=== PATIENT | male | born 1935 | race Caucasian/White ===

== ENCOUNTER 2017-01-09 16:59 | Inpatient (IN) | payer MEDICARE, OTHER ==
[~2017-01-09] VITALS: Ht 180.3 cm; Wt 81.2 kg
[2017-01-09 17:14] VITALS: BP 177/67; PULSE 64; RESP 18; RESP 30; O2SAT 93
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
[2017-01-09 18:25] LABS: BASOPHILS % (AUTO) 0.7 % (0-3); EOSINOPHILS % (AUTO) 0.6 % (0-5); MONOCYTES % (AUTO) 15.6 % (4-12); Mean Corpuscular Hemoglobin 30.1 pg (27.0-35.0); Mean Corpuscular Volume 87.6 fL (81-100); NEUTROPHILS % (AUTO) 71.2 % (40-74); Platelet Count 154 bil/L (150-400)
[2017-01-09] MEDS ORDERED: cefTRIAXone Inj 2,000 MG in Dextrose 5% Minibag Plus 50 ML IV ONE (18:45)
[2017-01-09 18:49] LABS: D-DIMER 4.1 mg/L (<0.50); INR 1.11 ratio
--- NOTE | 2017-01-09 18:51 | DRSVH ---
PROCEDURE: X-RAY CHEST ONE VIEW, PORTABLE ([id number]) INDICATIONS: dyspnea TECHNIQUE: One view of the chest was acquired. COMPARISON: None. FINDINGS: Surgical changes and devices: None. Lungs and pleura: Lung volumes are low. Patchy opacities are present in the bilateral lung bases, mor e confluent left. There is likely a small left pleural effusion. There is prominence of the interstit ium. Mediastinum: Mediastinal contours appear normal. Heart size is enlarged. The arch is calcified. Bones and chest wall: No suspicious bony lesions. Overlying soft tissues appear unremarkable. IMPRESSION: 1. Low lung volumes and basilar opacities which may represent atelectasis, although aspiration/infect ion could also be considered in the differential. 2. Interstitial opacities and cardiomegaly suspicious for fluid overload. Dictated by: Rosaura Angel M.D. on 01/09/2017 at 18:49 Approved by: Rosaura Angel M.D. on 01/09/2017 at 18:50
[2017-01-09 18:57] VITALS: BP 157/47; PULSE 53; RESP 26; O2SAT 92
[2017-01-09 19:05] LABS: TROPONIN T 0.11 ug/L (0.0-0.011)
[2017-01-09] MEDS ORDERED: 0.9% Sodium Chloride 500 ML IV ONE (19:45)
[2017-01-09] MEDS ORDERED: 0.9% Sodium Chloride 250 ML ONE (19:49)
[2017-01-09] MEDS: Heparin 5,000 Unit/mL Inj IVPUSH PRN (20:01)
--- NOTE | 2017-01-09 20:10 | DRSVH ---
PROCEDURE: US VEINOUS LEG DUPLEX UNILATERAL, LEFT INDICATIONS: left leg swelling TECHNIQUE: Real-time imaging, as well as color and pulse Doppler interrogation, were performed of the lower extr emity deep veins from the inguinal ligament to the popliteal fossa. COMPARISON: None. FINDINGS: Occlusive thrombus is present throughout the left superficial femoral vein, popliteal vein, and the posterior tibial vein. Common femoral vein is patent. IMPRESSION: Occlusive thrombus within the left superficial femoral vein, popliteal vein, and posterio r tibial vein. These findings were discussed with Dr. Lopez at 7:45 PM by the rehabilitation therapy technician. Dictated by: Rosaura Angel M.D. on 01/09/2017 at 20:07 Approved by: Rosaura Angel M.D. on 01/09/2017 at 20:08
[2017-01-09] MEDS: Heparin 25K Unit/500mL 0.45 NS 25,000 UNIT in IV Premix 1 EACH IV SCH (20:12)
[2017-01-09] MEDS ORDERED: Furosemide 10 mg/mL 4 mL Inj IVPUSH ONE (20:20)
[2017-01-09 21:37] VITALS: BP 157/47; PULSE 53; RESP 26; O2SAT 92
[2017-01-09 22:01] VITALS: BP 179/71; PULSE 48; RESP 18
--- NOTE | 2017-01-09 22:05 | NUR ---
NEW ADMIT Pt arrived to [facility] @ 2200, was able to transfer to bed independently. Pt's admit complete minus med rec. Pt's stated that she will have his home meds brought in by morning. Pt SOB but refused oxygen. Pt was uncooperative with care in the ED, but has allowed vitals, IV fluids and heparin drip.
[2017-01-09 22:14] VITALS: PULSE 43
[2017-01-09] MEDS ORDERED: Polyethylene Glycol (PEG) 17 Gm Powder PO PRN (22:50)
[2017-01-09] MEDS ORDERED: Ondansetron 2 mg/mL 2 mL Inj IVPUSH PRN (22:50)
[2017-01-09] MEDS ORDERED: Alum-Mag Hydrox-Simeth 30 mL Suspension PO PRN (22:50)
[2017-01-09 22:52] LABS: APPEARANCE,URINE CLEAR (CLEAR,HAZY); COLOR,URINE YELLOW (YELLOW); OCCULT BLOOD,URINE TRACE (NEGATIVE); UROBILINOGEN,URINE NORMAL (NORMAL)
[2017-01-10] VITALS (7 sets, daily range): BP systolic 160–182; BP diastolic 66–80; PULSE 42–57; RESP 20–28; O2SAT 93–97
--- NOTE | 2017-01-10 01:50 | NUR ---
HR/TELE Pt in and out of complete heart block per tele monitor. Pt hypertensive and bradycardic in the 30's - 50's. Pt slightly SOB and allowed O2 via NC @ 3L. MD aware and pacer pads in pt room @ this time. Pt is asymptomatic, denies chest pain, lightheadedness, or SOB after 3L O2 via NC applied.
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
[2017-01-10 03:46] LABS: BASOPHILS % (AUTO) 0.8 % (0-3); MONOCYTES % (AUTO) 15.9 % (4-12); Mean Corpuscular Hemoglobin 29.7 pg (27.0-35.0); Mean Corpuscular Volume 87.2 fL (81-100); NEUTROPHILS % (AUTO) 63.7 % (40-74); Platelet Count 140 bil/L (150-400)
--- NOTE | 2017-01-10 05:14 | ABG ---
DateTimeAnalyzed 05:07:00 -_ pH ____7.330 - 7.350 7.450 pCO2 ___23.7__ -mmHg 35.0 45.0 pO2 ___95.7__ -mmHg 69.0 116 HCO3- ___12.2__ -mmol/L 22.0 26.0 ABE __-11.9__ -mmol/L -2.0 2.0 tHb ___13.4__ -g/dL O2Hb ___95.3__ -% COHb ____1.2__ -% MetHb ____0.9__ -% sO2 ___97.3__ -% 25.0 FIO2 ___31.0__ -% Drawn By MK - Date/Time Notified____ 05:13:00 -_ Liter_Flow ____3.0__ -L/min Oxygen Device 1 __CANNULA - Notified By MK - Notified Whom __Jess RN - B 749 -mmHg tO2 ___18.1__ -Vol% Fan test _Positive -
[2017-01-10] MEDS ORDERED: Glucose 40% Oral Gel 15 Gm Tube PO PRN (07:50)
[2017-01-10] MEDS: Insulin LISPRO 300 Unit/3 mL Inj SUBQ SCH ×4 (08:00→22:00)
--- NOTE | 2017-01-10 10:00 | DRSVH ---
PROCEDURE: US RENAL SONOGRAM INDICATIONS: Acute kidney injury TECHNIQUE: Real-time scanning was performed of the kidneys and bladder, with image documentation. COMPARISON: None. FINDINGS: Kidneys: Kidneys are normal in size. Right kidney measures 10.8 cm long; left kidney measures 12.8 cm long. Right renal cortical thickness is 0.9 cm; left renal cortical thickness is 0.9 cm. Renal c ortical echotexture is increased. No hydronephrosis or nephrolithiasis. No suspicious solid mass le sions. Bladder: Pre-void bladder volume is 73 mL. Post-void residual is unable to be assessed as the patie nt was unable to void. There is left ureteral jet. The right ureter was not seen. Miscellaneous: No free pelvic fluid. IMPRESSION: 1. Mild cortical thinning and increased renal cortical echogenicity bilaterally, compatible with medi robert renal disease. 2. No hydronephrosis. Dictated by: Oscar GOMEZ Interpreted: Carissa Boyd MD on 01/10/2017 at 9:58 Transcribed by: KEYSHAWN on 01/10/2017 at 10:00 Approved by: Carissa Boyd M.D. on 01/10/2017 at 12:45
[2017-01-10] MEDS ORDERED: CLOP75TA3 PO (11:46)
[2017-01-10] MEDS ORDERED: FURO-128 PO (11:46)
[2017-01-10] MEDS ORDERED: ASPI325T32 PO (11:46)
[2017-01-10] MEDS ORDERED: [UNRECOGNIZED DRUG - CODE] PO (11:46)
[2017-01-10] MEDS ORDERED: ALLO300T2 PO (11:46)
[2017-01-10] MEDS ORDERED: BENA20TA72 PO (11:46)
[2017-01-10] MEDS ORDERED: RANI150T11 PO (11:46)
[2017-01-10] MEDS: Isosorbide Dinitrate 40 mg ER24 Tablet PO SCH (12:10)
[2017-01-10] MEDS ORDERED: 0.9% Sodium Chloride 250 ML ONE (12:18)
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
[2017-01-10] MEDS: Heparin 25K Unit/500mL 0.45 NS 25,000 UNIT in IV Premix 1 EACH IV SCH (16:20)
--- NOTE | 2017-01-10 16:51 | DRSVH ---
[facility] [address] [place] [address] Echocardiogram Report Name: ALISA TERRAZAS Study Date: 01/10/2017 Height: 71 in Hospital Exam Location: [facility] Weight: 185 lb Gender: Male BSA: 2.0 m2 : 1935 Age: 81 yrs BP: 177/66 mmHg Reason For Study: EDEMA, SHORTNESS OF BREATH Ordering Physician: HOSPITALIST [facility] Performed By: Jabier Tolentino Referring Physician: Juvenal Dodge Interpretation Summary The left ventricle is mildly dilated. The ejection fraction is estimated to be 35-40%. There is severe hypokinesis of the mid and distal septum, and akinesis of the septum and posterior wall. The anterior wall is hypokinetic and in apical inferior wall is akinetic. 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 There is severe pulmonary hypertension. The right ventricular systolic pressure is estimated at 89 mmHg assuming a right atrial pressure of 15 mm Hg. The right ventricle is mildly dilated. The right ventricular systolic function is normal. There is moderate to severe mitral regurgitation. There is moderate biatrial enlargement. The patient was in third degree heart block during the exam. The heart rate ranged between 50-70 bpm during the study. No other echocardiographic abnormalities seen. Procedure: A two-dimensional transthoracic echocardiogram with color flow and Doppler was performed. The study quality was technically adequate. There is no prior echocardiogram noted for this patient. The suprasternal notch views were difficult to obtain and are suboptimal in quality. The patient had a bundle branch block rhythm during the exam. The patient was in third degree heart block during the exam. The heart rate ranged between 50-70 bpm during the study. Left Ventricle: There is normal left ventricular wall thickness. The left ventricle is mildly dilated. There is no thrombus. The ejection fraction is estimated to be 35-40%. There is severe hypokinesis of the mid and distal septum, and akinesis of the septum and posterior wall. The anterior wall is hypokinetic and in apical inferior wall is akinetic. 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 Diastolic function could not be accurately assessed due to unobtainable data. Right Ventricle: The right ventricle is mildly dilated. The right ventricular systolic function is normal. Atria: There is moderate biatrial enlargement. The right atrium is moderately dilated. The interatrial septum is intact with no evidence for an atrial septal defect. Mitral Valve: The mitral valve is normal in structure and function. There is moderate to severe mitral regurgitation. Aortic Valve: The aortic valve is trileaflet. The aortic valve opens well. There is trace aortic regurgitation. Tricuspid Valve: The tricuspid valve is normal in structure and function. There is moderate tricuspid regurgitation. The right ventricular systolic pressure is estimated at 89 mmHg assuming a right atrial pressure of 15 mm Hg. There is severe pulmonary hypertension. Pulmonic Valve: The pulmonic valve is normal in structure and function. There is trace pulmonic regurgitation. Great Vessels: The aortic root is normal size. The dimensions of the ascending aorta are normal. The pulmonary artery is normal size. The IVC is dilated (diameter is greater than 2.1 cm) and it collapses less than 50% with a sniff. This suggests a high right atrial pressure of 15 mm Hg. Pericardium/ Pleura There is no pericardial effusion. There is no pleural effusion. MMode/2D Measurements & Calculations LVIDd: 6.1 cm LA dimension: 4.5 cm RA long axis LVOT diam LVIDs: 4.5 cm FS: 26.4 % LA A2 area: 30.1 cm RA area Ao root diam EPSS: 1.1 cm LA A4 area: 25.0 cm IVSd: 0.97 cm LA length (vol): 5.7 cm : 24.0 cm Aortic Jxn LVPWd: 0.87 cm LA vol: 112.3 ml RA vol: 85.3 ml LA vol index RA asc Aorta : 41.8 mm2 Diam: 3.2 cm IVC diam: 2.6 cm LV braga. diameter/BSA LV sys. diameter/BSA RVD1 (basal) RVD2 (mid) (cm/m^2): 3.0 (cm/m^2): 2.2 : 4.5 cm Doppler Measurements & Calculations Ao V2 max MV E max simeon MV E/A: 0.93 TR max simeon : 151.9 cm/sec : 95.7 cm/sec Med Peak E' Simeon : 431.1 cm/sec Ao max PG MV A max simeon TR max PG : 9.2 mmHg : 103.1 cm/sec E/E' med: 22.1 : 74.4 mmHg Ao mean PG Pulm A Revs Dur PA V2 max MR ERO: 0.13 cm2 : 95.2 cm/sec LVOT Max Simeon MV A dur: 0.14 sec PA mean PG : 107.3 cm/sec PA Accel Time SRIDHAR(I,D): 3.5 cm : 0.06 sec sev ratio MV dec time Ao V2 mean LV V1 max PG MR flow rate : 0.12 sec : 116.8 cm/sec : 63.5 cm3/sec Ao V2 VTI: 42.8 cm LV V1 VTI: 28.3 cm MR PISA radius SRIDHAR(V,D): 3.7 cm2 PA V2 mean SRIDHAR indexed to BSA Pulm A Revs Dur - MV : 63.5 cm/sec (cm^2/m^2): 1.7 A Dur: 0.02 msec PA pr(Accel) : 59.0 mmHg Reading Physician:04:50 PM
[2017-01-10] MEDS ORDERED: Furosemide 10 mg/mL 4 mL Inj IVPUSH ONE (17:25)
--- NOTE | 2017-01-10 17:52 | NUR ---
Med&Procedure refusals/Heparin The pt continues to refuse many medications and procedures despite education by both nursing staff and Doctors. We will continue to educate on the importance. TELE heart block in the 30's-50's. The pt is active on a Heparin drip.
--- NOTE | 2017-01-10 18:22 | PCM.PNMED ---
Subjective Date of Service Jan 10, 2017 Subjective is an 81-year-old male with type 2 diabetes mellitus, hypertension and CAD with history of CA presenting [facility]. Patient is accompanied by his at bedside. Patient has been refusing medications and refused V/Q scan. He is accepting heparin drip. Patient reports shortness of breath. He denies fever or chills, chest pain, or abdominal pain. Patient reports that he was upset yesterday when he was being transported from wound care to the emergency department. He was upset because he felt that he was not fully informed about why he was going to the emergency department, and he felt like he was forced to go. He reports that he has not been sick before or required hospitalization so he is afraid of being in the hospital. He reports that he did not put the gun towards his head but that it was just at his hip. He denies suicidal ideation other than yesterday while he was on his way to the emergency department. The gun is now in his van. His reports that the redness on his legs started 4-5 days ago, which is why he were going to wound care yesterday. She reports that in the past he has had a fungal cellulitis of both legs that was treated by Dr. Bradshaw. They follow regularly with a homeopath as their primary care provider. Exam Vital Signs Vital Sign - Last Date Time Temp Pulse Resp B/P Pulse Ox O2 Delivery O2 Flow Rate FiO2 01/10/17 16:13 36.6 54 26 173/80 93 Room Air 01/10/17 02:23 3.00 Intake and Output 01/09/17 01/09/17 01/10/17 Cumulative From/Thru 15:00 23:00 07:00 01/09/17 17:14 - 01/10/17 04:29 Intake Total 250 ml 100 ml 350 ml Output Total 300 ml 300 ml Balance 250 ml -200 ml 50 ml Intake Oral 100 ml 100 ml IV Total 250 ml 250 ml Output Urine Total 300 ml 300 ml # Voids 0 0 # Bowel Movements 1 1 Exam General: Elderly patient sitting upright in bed comfortably. No acute distress, well-developed, well-nourished, appropriately interactive HEENT: Normocephalic, atraumatic. External ears without defect. Pupils equal, round, and reactive to light. Oral mucosa pink with dry mucosa. Neck: Supple. Mild jugular venous distension. No lymphadenopathy or thyromegaly. Cardiovascular: Bradycardic in 50s. No murmurs, rubs, or gallops appreciated Pulmonary: Tachypneic. Clear to auscultation bilaterally with no crackles, wheezes, or rhonchi. Normal respiratory effort with no use of accessory muscles. Abdomen: Bowel tones present. Soft, nontender, nondistended. Extremities: Left lower extremity with edema, swelling and confluent erythema and warmth to 3/4 lower leg distal to knee. Right lower extremity with edema, swelling and erythema and warmth half way up lower leg distal to knee. Onychomycosis of bilateral toenails. Neurological: Cranial nerves grossly intact. Normal muscle strength, tone, and bulk. Psychiatric: Normal mood and affect. Alert and oriented to person, place, and time. IVs and Medications Medications Reviewed: Medications were reviewed in detail Lab and Diagnostics Result Diagram: 01/10/17 0321 01/10/17 0321 X-Rays, CTs and MRIs PROCEDURE: US VEINOUS LEG DUPLEX UNILATERAL, LEFT IMPRESSION: Occlusive thrombus within the left superficial femoral vein, popliteal vein, and posterior tibial vein. These findings were discussed with Dr. Lopez at 7:45 PM by the substance abuse technician. Approved by: Rosaura Angel M.D. on 01/09/2017 at 20:08 PROCEDURE: X-RAY CHEST ONE VIEW, PORTABLE IMPRESSION: 1. Low lung volumes and basilar opacities which may represent atelectasis, although aspiration/infection could also be considered in the differential. 2. Interstitial opacities and cardiomegaly suspicious for fluid overload. Approved by: Rosaura Angel M.D. on 01/09/2017 at 18:50 PROCEDURE: US RENAL SONOGRAM IMPRESSION: 1. Mild cortical thinning and increased renal cortical echogenicity bilaterally , compatible with medical renal disease. 2. No hydronephrosis. Approved by: Carissa Boyd M.D. on 01/10/2017 at 12:45 Cardiac Echo Impressions Echocardiogram Report Interpretation Summary The left ventricle is mildly dilated. The ejection fraction is estimated to be 35-40%. There is severe hypokinesis of the mid and distal septum, and akinesis of the septum and posterior wall. The anterior wall is hypokinetic and in apical inferior wall is akinetic. 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 There is severe pulmonary hypertension. The right ventricular systolic pressure is estimated at 89 mmHg assuming a right atrial pressure of 15 mm Hg. The right ventricle is mildly dilated. The right ventricular systolic function is normal. There is moderate to severe mitral regurgitation. There is moderate biatrial enlargement. The patient was in third degree heart block during the exam. The heart rate ranged between 50-70 bpm during the study. No other echocardiographic abnormalities seen. Reading Physician:04: 50 PM Assessment & Plan Patient is an 81-year-old male with type 2 diabetes mellitus, hypertension and CAD with history of CA presenting as a referral from [facility] for shortness of breath and admitted for left lower extremity DVT, acute CHF exacerbation, acute kidney injury, hyperkalemia, suspected PE and possible lower extremity cellulitis. 1. Acute dyspnea on exertion. Present on admission. Active. -Initially tachypneic and oxygen saturation in 90s. -Chest x-ray reads basilar opacities which may represent atelectasis, although aspiration/infection could also be considered in the differential. Interstitial opacities and cardiomegaly suspicious for fluid overload. Echocardiogram shows EF of 35-40% and severe pulmonary hypertension. -Likely multifactorial secondary to likely congestive heart failure exacerbation , suspected pulmonary embolism, probable chronic pulmonary hypertension as seen on echocardiogram, and patient has metabolic acidosis. -Legionella negative, streptococcal pneumoniae negative, viral PCR negative -Supplemental oxygen as needed -Patient has been refusing oxygen. -V/Q scan to evaluate for suspected pulmonary embolism was refused by patient. We will hold on this for now as we are actively treating the patient for a DVT and this would not change the treatment. 2. Second and third degree heart block. Unknown acuity. Present on admission. Active. -Unknown acuity. Possibly an unknown longstanding issue, secondary to hyperkalemia, possible pulmonary embolism -Telemetry -Pacer pads are on patient -Cardiology consulted and following patient. Their time and recommendations are appreciate. 3. Left lower extremity DVT, acute. Present on admission. Active. -Doppler US shows an occlusive thrombus within the left superficial femoral vein , popliteal vein, and posterior tibial vein. -Heparin gtt 4. Bilateral lower leg cellulitis, acute. Present on admission. -Likely recurrent. Patient's reports a history of fungal cellulitis. -Pending: ASO, streptozyme, MRSA screen -Patient is currently getting ceftriaxone. -Infectious disease consult tomorrow morning. 5. Hyperkalemia, acute. Present on admission. Active -Possibly related to acute kidney injury and metabolic acidosis -Patient received Kayexalate and Lasix in the ED -Ordered insulin this morning but it was refused by the patient. -Follow with CMP 6. Metabolic acidosis, acute. Present on admission. Active -Possibly secondary to chronic kidney disease -ABG showed pH 7.333, PCO2 23.7, O2 95.7, HCO3 12.2 -Lactic acid within normal limits -PH is not 7.2 or less, we will hold on replacing bicarbonate today. -Follow with CMP 7. Hypertension, chronic. Present on admission -Currently patient is hypertensive -Isosorbide nitrate 40 mg twice a day resumed -Held patient's home ANDREW inhibitor due to acute kidney injury. -Avoiding beta blockers, CCB due to heart block -Furosemide 40 g once daily was resumed. IV furosemide 40 mg once for this evening was ordered but patient refused -Cardiology recommends hydralazine 50 mg twice a day for additional blood pressure control. 8. Acute congestive heart failure exacerbation. Present on admission. Active -Chest x-ray with findings of fluid overload. Clinically patient with lower extremity edema and mild JVD. -Echocardiogram shows EF of 35-40% and severe pulmonary hypertension -Pro-BNP 8784 -Furosemide IV 40mg given in the ED. -I/O and daily weights -Furosemide 40 g once daily was resumed. IV furosemide 40 mg once for this evening was ordered but patient refused 9. Suspected pulmonary embolism. Present on admission. Active -Doppler of lower extremities shows left lower extremity DVT -Heparin gtt -V/Q scan as above, see #1. 10. Acute kidney injury. Present on admission. Active -Unknown baseline kidney function. Possible chronic component as patient has longstanding hypertension -Creatinine 1.70 -Renal ultrasound shows mild cortical thinning and increased renal cortical echogenicity bilaterally -Urine culture and blood culture pending -Avoid nephrotoxins -Hold home allopurinol for now. -Nephrology was consulted in the emergency department. Will hold on consulting nephrology for today. Possible nephrology consult tomorrow if metabolic acidosis and kidney function did not improve. 11. Possible basilar pneumonia Present on admission. Active -Chest x-ray shows possible basilar pneumonia -See #1 above -Will continue ceftriaxone 12. Coronary artery disease, chronic. Present on admission. -Continued home aspirin and clopidogrel 13. Suicidal ideation, chronicity unknown. Present on admission. -Patient denies current suicidal ideation -Patient's daughter discussed with social work that she is concerned about his mental health -Psychiatry consulted and will see patient tomorrow morning. 14. Gastroesophageal reflux disease, chronic. Present on admission. -Continued home famotidine Patient Status: Patient is admitted under inpatient status with expected length of stay greater than 2 midnights due to severity of presenting symptoms, risk of adverse event, and complexity of treatment plan. DVT prophylaxis: heparin drip VTE Prophylaxis: Other (Heparin gtt) Resuscitation Status: Limited Interventions (DNI) Limited Interventions: Compressions, Cardioversion/Defibrillation, BiPAP, Medications and IV Fluid Time spent 40 minutes Attending Statement Patient was seen and examined with house staff. Agree with all attached documentation. Valencia Jamison DO Jan 10, 2017 18:22 Fan Palomares MD Jan 11, 2017 15:08
--- NOTE | 2017-01-10 19:30 | NUR ---
Zoll pads Pt refused to have Zoll pads placed.
[2017-01-10] MEDS: cefTRIAXone Inj 2,000 MG in Dextrose 5% Minibag Plus 50 ML IV SCH (19:40)
[2017-01-11] VITALS (7 sets, daily range): BP systolic 132–166; BP diastolic 56–78; PULSE 43–55; RESP 22–30; O2SAT 93–96
--- NOTE | 2017-01-11 01:55 | NUR ---
Care Plan Pt refused furosemide and BG check with/without insulin. Pt up to the bathroom independently against advice.
--- NOTE | 2017-01-11 03:42 | NUR ---
Ambulation Pt called to have assistance unplugging the IV machine and unhooking the continuous pulse oximeter. Pt reminded that it is against best advice for him to be getting and out of bed while his HR is in the low 40's with him having heart issues. As per athletic monitor, pt is going in and out of complete heart block with rates staying at 39 for minutes at a time. Pt states that he will not use neither a bedpan or a urinal and that he is going to go to the bathroom regardless of medical advice. Pt assisted back to bed after using the restroom, slider pad and underwear changed as pt was incontinent of urine.
[2017-01-11 04:32] LABS: BASOPHILS % (AUTO) 0.9 % (0-3); EOSINOPHILS % (AUTO) 1.7 % (0-5); MONOCYTES % (AUTO) 18.5 % (4-12); Mean Corpuscular Hemoglobin 29.1 pg (27.0-35.0); Mean Corpuscular Volume 87.6 fL (81-100); NEUTROPHILS % (AUTO) 65.2 % (40-74); Platelet Count 152 bil/L (150-400)
[2017-01-11] MEDS: Isosorbide Dinitrate 40 mg ER24 Tablet PO SCH ×2 (07:31→20:36)
[2017-01-11] MEDS: Insulin LISPRO 300 Unit/3 mL Inj SUBQ SCH ×4 (07:32→22:00)
--- NOTE | 2017-01-11 12:49 | CONS ---
[address] [address] CONSULTATION REPORT PATIENT: ALISA TERRAZAS : 1935 MR#: [id number] ADMIT: 01/09/2017 JOB ID: [id number] DATE OF SERVICE: 01/11/2017 CARDIOLOGY CONSULTATION: REASON FOR CONSULTATION: I have been asked by the hospital doctors to see the patient to assist with his evaluation and management. HISTORY OF PRESENT ILLNESS: The patient has a history of hypertension and diabetes. He has a history over the last 5-6 weeks of flu-like symptoms and approximately a week ago developed bilateral lower extremity edema and prominent erythema. [facility] and was noted to have significant dyspnea and subsequently then was referred to the emergency department for further evaluation. This gentleman provides very little other history. His is by the bedside and provides most of the information. She states that he has had a heart attack in the past when he was 38 years old but on further questioning, it is clear that he was under a great deal of stress at the time and may have had a panic attack and went to the emergency department. He was subsequently referred to a primary care provider for evaluation but was not admitted to the hospital, and I think the history is not at all compelling for an acute myocardial infarction. On further questioning, the patient has been seen by a communications systems engineer perhaps a year or so ago in [place]. The reason for his visit at that time was not clear, and his evaluation is uncertain. He does not give a history of angina-like chest discomfort, nor does he have a history of being admitted with a clear-cut diagnosis of acute myocardial infarction. As part of his evaluation yesterday, an echocardiogram was performed which shows a mildly dilated ventricle with an ejection fraction of around 35% to 40% with posterior wall motion abnormality and with an anteroseptal and apical wall motion abnormality, both consistent with previous infarctions and underlying ischemic heart disease. He also has evidence of 3+ mitral regurgitation, probably ischemic related. Also notable about his admission is the fact that his lab work showed a bicarb of 11 with a chloride of 112 and a potassium of 5.7. His lactic acid level was normal, and an arterial blood gas done subsequently demonstrates again a bicarb very low at 12.2, normal pO2 with a pCO2 reduced at 23 and a pH of 7.33, consistent with incomplete respiratory compensation for severe metabolic acidosis. In the absence of a ketoacidosis or a lactic acidosis, the etiology of his metabolic acidosis is unclear. His presentation was also notable for the fact that he was observed to have a wide complex rhythm at a rate of around 50 beats per minute with periods of complete heart block. The patient has no past history of syncope or near syncope or dizziness. Up until his flu-like illness five or six weeks ago, he was able to be fairly active according to him and his . They live in [place] and have been for 62 years. During his observation here in the hospital his rates have generally varied between 50 and 60 beats per minute and again, he has had no symptomatic bradyarrhythmias with a ventricular escape rhythm in the 50-60 range. HOME MEDICATIONS: Included: 1. Clopidogrel 75 mg a day. 2. Benazepril 20 mg daily. 3. Isosorbide dinitrate 40 mg b.i.d. 4. Aspirin 325 mg a day. 5. Furosemide 40 mg a day. 6. Ranitidine 150 mg twice a day. 7. Allopurinol 300 mg a day. ALLERGIES: Include: 1. LATEX. 2. PENICILLIN. SOCIAL HISTORY: Again, the patient lives with his in [place]. He used to work at [employer] for [address] in 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 REVIEW OF SYSTEMS: Notable for the absence of symptomatic exertional dyspnea or angina-like chest discomfort in the months preceding his illness. He states that he sleeps with his head elevated on a bed that is able to do that and has for quite a long time for comfort reasons, and it is not clear that he has orthopnea or PND. It is not clear that he has had fevers or chills. He has lost weight and describes symptoms of upper pharyngeal/esophageal dysphagia. No history of bleeding issues or blood loss. No obvious history of stroke or TIA-like symptoms, although the again relates a history of a remote stroke, which sounds again more like a conversion reaction or panic attack and does not appear likely consistent with a true CVA. PAST MEDICAL HISTORY: Otherwise is notable for his hypertension and diabetes. The reason for him being on isosorbide is uncertain to me, and the Plavix as well, unless that relates to his evaluation by the communications systems engineer a year ago in [place], and those records should be obtained. PHYSICAL EXAMINATION: This is a pleasant, anxious 81-year-old male, 5 feet 11 inches tall, 184 pounds, body mass index of 25.8. HEENT examination is unremarkable. Jugular venous pressure is elevated, visible at the angle of the jaw with the patient at 45 degrees. I hear no carotid bruits, and carotid upstroke is normal. Heart rate shows a somewhat variable rate in the 50s with an invariable intensity first heart sound. I do not hear a ventricular gallop. No significant cardiac murmurs. Lungs are clear without any rales or rhonchi or wheezing but he is moderately tachypneic. Abdomen is soft and nontender. I do not feel any hepatic or splenic enlargement apparent. The aorta is not palpably enlarged. I hear no aortic bruits. Distal extremities show 2 to 3+ lower extremity edema with evidence of cellulitis in both lower extremities up to just below the knee left more prominent than on the right. No obvious focal neurologic abnormalities. He has nailbed cyanosis with plethora of both hands, and has a moderate resting tremor involving his left arm and left leg notable. LABORATORY: Shows a normal white count. He has a moderate monocytosis and hemoglobin of 13.1. His platelet count is normal. Chemistries continue to show evidence of significant acidosis with a bicarb of 14, chloride of 113, potassium now normalized at 4.6, blood sugar 143. Total protein and albumin both mildly reduced. Liver functions are normal. His BNP is elevated at 8700, and troponin mildly elevated at 0.11 and 0.13. Creatinine slightly improved from 1.7 on admission to 1.52 currently. Lactic acid level normal at 1.4. Thyroid function has not been tested. IMAGING STUDIES: Demonstrate extensive DVT involving the left superficial femoral vein and popliteal vein and posterior tibial vein on the left. His renal ultrasound shows cortical thinning with no hydronephrosis. Echocardiogram is described above. In addition to the left ventricular systolic dysfunction, there was evidence of severe pulmonary hypertension with an estimated pulmonary artery pressure of 90 mmHg and an elevated central venous pressure of 15 mmHg or greater. Right ventricular size is mildly dilated but there is normal right ventricular systolic function. There is 3+ mitral insufficiency identified and again, the patient is noted to be in third-degree heart block with a ventricular rate of 50 to 70 beats per minute. IMPRESSION: This is a very complicated 81-year-old gentleman presenting with a one month history of flu-like symptoms followed over the last week with bilateral lower extremity edema and evidence of cellulitis. He has evidence of severe pulmonary hypertension in addition, and a prominent left lower extremity deep venous thrombosis. His right ventricle looks fairly normal which would be a bit unusual in the setting of significant pulmonary embolus. The etiology of his pulmonary hypertension is not at all clear. He also has a very severe, and unexplained, metabolic acidosis, which explains his tachypnea, with respiratory compensation. He has moderate renal insufficiency in addition. From a cardiac standpoint, he has evidence of underlying ischemic heart disease and presumed silent infarcts in the past, with intermittent third-degree heart block but with an adequate ventricular escape rhythm at rates of 50 to 70 beats per minute. This gentleman is anticoagulated. He remains moderately hypertensive and because of his renal dysfunction, I think it is reasonable to treat his hypertension with a combination of nitrates and hydralazine. I have taken the liberty to increase his hydralazine to 50 mg q.8 h. currently. I think he could also tolerate increased diuretics with an increase in his furosemide to 80 mg a day but I will leave that to the Hospitalist team. He can simply be observed for his cardiac dysrhythmia at this point in time until his metabolic parameters have been corrected, and we can determine at that point if any further intervention is needed. Given his current significant anxiety regarding general medical care, I think it is unlikely that this gentleman would want to proceed with pacemaker therapy but it may be that he will not require such if correction of his metabolic acidosis improves his electrical conductivity. Overnight oximetry would be useful to determine if he has nocturnal hypoxemia perhaps related to sleep apnea that would explain his severe pulmonary hypertension. It is not entirely clear to me what other cause there might be other than perhaps a combination of factors including maybe small pulmonary emboli in the past as well. I will be interested to follow up with the Medical team, as they work on determining the cause of his metabolic acidosis. His blood pressure again can be significantly improved with hydralazine, nitrates and diuretics, and I am happy to provide further recommendations as necessary. The rest of his cardiac issues likely can be dealt with in an outpatient setting. It would be reasonable to try to get records from his cardiac evaluation a year ago in [place].
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
[2017-01-11] MEDS: Heparin 25K Unit/500mL 0.45 NS 25,000 UNIT in IV Premix 1 EACH IV SCH (14:10)
--- NOTE | 2017-01-11 14:25 | CONS ---
[address] [address] CONSULTATION REPORT PATIENT: ALISA TERRAZAS : 1935 MR#: [id number] ADMIT: 01/09/2017 JOB ID: [id number] DATE OF SERVICE: 01/11/2017 IDENTIFICATION: The patient is a white male from [facility]. He has been to his for the past 63 years and she was present during the interview. Both of them are World War II refugees that escaped the [place]. They moved from [place] to [place] approximately 17 years ago. REASON FOR ADMISSION: Client presented for a wound care consultation and was so short of breath that the nurse wheeled over to the ED. He became agitated and did not understand what was happening, aim a gun from his pocket, and held it to his head. Consultation is being requested for a safety evaluation, a competency evaluation, and recommendations for potential psychiatric treatments. HISTORY OF PRESENT ILLNESS: I was asked to consult the patient for evaluation of suicide potential. I met with he and his for a 60-minute evaluation, as well as reviewing course and records with his primary care team. Client's main issue related to holding a gun to his head was an acute stress reaction. It appears that the patient was overwhelmed by multiple different stressful events during the appointment and multiple medical problems. The patient believed that he was being taken to his by going to the hospital. He stated that he was not feeling suicidal and has no intention of killing himself now. The patient denied symptoms of depression, josé luis, psychosis, anxiety, or self-harm impulses. He does have emotional liability whenever talking about his family or memories from the past. He did seem to qualify for a diagnosis of PTSD with symptoms of avoidance of memories which remind him of past trauma, autonomic hyperactivity, and intrusive recall of traumatic events. Client was unable to identify his medical issues relating to difficulty with heart failure, renal failure, and multiple potential clots. He was unable to understand the need for a cardiology consult or that he may need a pacemaker. His was well aware of his issues with coagulation difficulty, renal failure, and heart failure. Both she and her try to minimize any type of Western medication treatment but she did understand that he needed certain medications at this time and she showed good insight and judgment into discussing this with me and with her . PAST MEDICAL HISTORY: MEDICATIONS: It is difficult to say if patient was taking any medications while at home. Here in the hospital he is on hydralazine 50 q.8 hours, Lasix 20 daily, aspirin 325 daily, Plavix 75 daily, ceftriaxone q. 24 hours IV, isosorbide 40 mg b.i.d., Pepcid 20 b.i.d., insulin sliding scale. ALLERGIES: 1. PENICILLINS. 2. LATEX ILLNESSES: diabetes mellitus, renal failure, congestive heart failure, suspected pulmonary embolism and DVTs, 2nd and 3rd-degree cardiac blocks suspected, as well as pulmonary hypertension. FAMILY MEDICAL HISTORY: Noncontributory. PAST PSYCHIATRIC HISTORY: Significant for PTSD related to experiences during World War II and shortly after. Client was born in [facility] and raised there until he and his escaped in 1955. 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 His stated he worked at [employer] for almost 50 years. HISTORY OF TRAUMA: The client cannot talk about it but breaks down in tears whenever talking about time in [place]. DRUG AND ALCOHOL: Client denies. LETHALITY: Client denies suicidal ideation or suicide attempts. He did pull a gun while he was in a wheelchair coming to the hospital and did hold it to his head per chart reports. RELATIONSHIP: to his for 63 years. BUDDHISM: Client's is a Orthodoxy. LEGAL HISTORY: None. PHYSICAL EXAMINATION: Vital signs: Blood pressure 164/76, pulse 106, respiration rate 30. Neuro: Client unsteady to gait. Balance poor. LABORATORY: Creatinine 1.5. Glucose 143. M MENTAL STATUS EXAMINATION: Client appeared ill. He was cooperative and polite and maintained good eye contact throughout the interview. His speech was somewhat slurred. His mood was dysphoric. His affect was congruent. Behavior was calm. Thought process logical and goal oriented. Thought content focused on overwhelming traumatic events from the past. Client is showing no evidence of psychosis. He denied suicidal ideation, plan, or intent. Client alert and oriented to person, place, and date. Attention and concentration mildly impaired. Immediate, short, and long-term memory mildly impaired. Insight and judgment is poor. Impulse control fair. Reality testing intact. Competence to handle current stressors is currently being overwhelmed. IMPRESSION: The patient is an 81-year-old man, a [facility] male, who had PTSD from World War II. These symptoms are increasing as his body is failing. He has multiple system failure and he and his are only minimally compliant with the recommendations from the multiple medical teams that are engaged. Client has good support in his . I do not believe he is competent to make medical decisions. He was unable to identify any of his medications except for aspirin. His , however, had a good understanding and grasp of the situation and seems like a devoted protector for her . I believe the client would benefit from psychotherapy and/or psychiatric medications but at this time is declining both. DIAGNOSIS: [place] I: 1. Adjustment disorder with disturbance of mood and conduct. 2. Post-traumatic stress disorder. [place] II: Deferred. [place] III: 1. Second and third-degree heart block. 2. Deep venous thrombosis. 3. Renal failure. 4. Congestive heart failure with an ejection fraction of 35. 5. Suspected pulmonary embolism and pulmonary hypertension. [place] IV: Moderate due to multiple medical conditions. [place] V: Current Global Assessment of Functioning equal to 35. RECOMMENDATIONS: 1. Recommend his be present for all medical decisions as at this time I do not believe client is competent to make medical decisions. 2. Client consistently denied suicide and both he and his detailed a reasonable safety plan to me. I believe client is no longer suicidal. 3. I do believe client would benefit from a low dose of SSRI but at this time is refusing both medications and therapy. Thank you for a very interesting consult. I will reevaluate the patient in two days to see if he wants further psychiatric treatment. Please call for any further questions.
--- NOTE | 2017-01-11 17:38 | NUR ---
Bedrest/Hep/refusals The pt has had an order placed for bedrest, and the pt refuses. The potential for harm has been explained, and the pt continues to refuse bedrest and urinal use. The pt is still active on a heparin drip - currently at 16 units/kg/hour. The pt continues to also refuse some medications and procedures. Every attempt to educate is made.
--- NOTE | 2017-01-11 20:02 | PCM.PNMED ---
Subjective Date of Service Jan 11, 2017 Subjective is an 81-year-old male with type 2 diabetes mellitus, hypertension and CAD with history of CT presenting as a referral from [facility] for shortness of breath. Patient is accompanied by his at bedside. This morning, Mr. Walsh reports that he is feeling well and would like to go home. He has some shortness of breath. He denies chest pain, fever chills, abdominal pain, and leg pain. Review of patient's previous records show that he have CKD stage 3, CHF, hypothyroidism, and prior CVA in addition to reported hypertension and coronary artery disease. Exam Vital Signs Vital Sign - Last Date Time Temp Pulse Resp B/P Pulse Ox O2 Delivery O2 Flow Rate FiO2 01/11/17 16:12 37.0 54 22 166/74 96 Room Air 01/11/17 07:15 2.00 Intake and Output 01/10/17 01/10/17 01/11/17 Cumulative From/Thru 15:00 23:00 07:00 01/09/17 17:14 - 01/11/17 05:17 Intake Total 810 ml 708 ml 1868 ml Output Total 126 ml 300 ml 726 ml Balance 684 ml 408 ml 1142 ml Intake Oral 270 ml 708 ml 1078 ml IV Total 540 ml 790 ml Output Urine Total 125 ml 300 ml 725 ml Estimated Blood Loss 1 ml 1 ml # Voids 2 3 5 # Bowel Movements 0 1 Exam General: Elderly patient sitting upright in bed comfortably. No acute distress, well-developed, well-nourished, appropriately interactive HEENT: Normocephalic, atraumatic. External ears without defect. Pupils equal, round, and reactive to light. Oral mucosa pink with dry mucosa. Neck: Supple. Mild jugular venous distension. No lymphadenopathy or thyromegaly. Cardiovascular: Regular rate and rhythm. No murmurs, rubs, or gallops appreciated Pulmonary: Tachypneic. Clear to auscultation bilaterally with no crackles, wheezes, or rhonchi. Normal respiratory effort with no use of accessory muscles. Abdomen: Bowel tones present. Soft, nontender, nondistended. Extremities: Left lower extremity with edema, swelling and confluent erythema and warmth to 3/4 lower leg distal to knee. Right lower extremity with edema, swelling and erythema and warmth half way up lower leg distal to knee. Onychomycosis of bilateral toenails. Neurological: Cranial nerves grossly intact. Normal muscle strength, tone, and bulk. Psychiatric: Normal mood and affect. Alert and oriented to person, place, and time. IVs and Medications Medications Reviewed: Medications were reviewed in detail Lab and Diagnostics Result Diagram: 01/11/1740901/11/17409 X-Rays, CTs and MRIs PROCEDURE: US VEINOUS LEG DUPLEX UNILATERAL, LEFT IMPRESSION: Occlusive thrombus within the left superficial femoral vein, popliteal vein, and posterior tibial vein. These findings were discussed with Dr. Lopez at 7:45 PM by the diagnostic tech. Approved by: Rosaura Angel M.D. on 01/09/2017 at 20:08 PROCEDURE: X-RAY CHEST ONE VIEW, PORTABLE IMPRESSION: 1. Low lung volumes and basilar opacities which may represent atelectasis, although aspiration/infection could also be considered in the differential. 2. Interstitial opacities and cardiomegaly suspicious for fluid overload. Approved by: Rosaura Angel M.D. on 01/09/2017 at 18:50 PROCEDURE: US RENAL SONOGRAM IMPRESSION: 1. Mild cortical thinning and increased renal cortical echogenicity bilaterally , compatible with medical renal disease. 2. No hydronephrosis. Approved by: Carissa Boyd M.D. on 01/10/2017 at 12:45 Cardiac Echo Impressions Echocardiogram Report Interpretation Summary The left ventricle is mildly dilated. The ejection fraction is estimated to be 35-40%. There is severe hypokinesis of the mid and distal septum, and akinesis of the septum and posterior wall. The anterior wall is hypokinetic and in apical inferior wall is akinetic. 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 There is severe pulmonary hypertension. The right ventricular systolic pressure is estimated at 89 mmHg assuming a right atrial pressure of 15 mm Hg. The right ventricle is mildly dilated. The right ventricular systolic function is normal. There is moderate to severe mitral regurgitation. There is moderate biatrial enlargement. The patient was in third degree heart block during the exam. The heart rate ranged between 50-70 bpm during the study. No other echocardiographic abnormalities seen. Reading Physician:04: 50 PM Assessment & Plan Patient is an 81-year-old male with type 2 diabetes mellitus, hypertension and CAD with history of CT presenting as a referral from [facility] for shortness of breath and admitted for left lower extremity DVT, acute CHF exacerbation, acute kidney injury, hyperkalemia, suspected PE and possible lower extremity cellulitis. 1. Acute dyspnea on exertion. Present on admission. Active. -Initially tachypneic and oxygen saturation in 90s. -Chest x-ray reads basilar opacities which may represent atelectasis, although aspiration/infection could also be considered in the differential. Interstitial opacities and cardiomegaly suspicious for fluid overload. Echocardiogram shows EF of 35-40% and severe pulmonary hypertension. -Likely multifactorial secondary to likely acute systolic congestive heart failure exacerbation, suspected pulmonary embolism, and probable chronic pulmonary hypertension as seen on echocardiogram, and patient has metabolic acidosis. -Legionella negative, streptococcal pneumoniae negative, viral PCR negative -Supplemental oxygen as needed -Patient has been refusing oxygen. -V/Q scan to evaluate for suspected pulmonary embolism was refused by patient. We will hold on this for now as we are actively treating the patient for a DVT and this would not change the treatment. 2. Second and third degree heart block. Unknown acuity. Present on admission. Active. -Unknown acuity. Possibly an unknown longstanding issue, secondary to hyperkalemia, possible pulmonary embolism -Telemetry -Cardiology consulted and following patient. Their time and recommendations are appreciated. Plan is to correct metabolic acidosis and see if block improves , otherwise offer pacemaker. 3. Left lower extremity DVT, acute. Present on admission. Active. -Doppler US showed an occlusive thrombus within the left superficial femoral vein, popliteal vein, and posterior tibial vein. -Heparin gtt 4. Metabolic acidosis, acute. Present on admission. Active -Possibly secondary to chronic kidney disease. Notes from his primary care physician report CKD stage 3. Prior BUN 34, creatinine 1.41 on 03/22/2016. In 2012, BUN 33, creatinine 1.52. -ABG yesterday showed pH 7.333, PCO2 23.7, O2 95.7, HCO3 12.2 -Lactic acid within normal limits -Anion gap improved today -Follow with CMP -Nephrology suggests DTA4 and added NaHCO3 and chlorthalidone. Will follow. 5. Hypertension, chronic. Present on admission -Currently patient is hypertensive but improving -Isosorbide nitrate 40 mg twice a day resumed -Held patient's home ANDREW inhibitor due to acute kidney injury. -Avoiding beta blockers, CCB due to heart block -Furosemide 40 g once daily resumed -Cardiology recommended hydralazine 50 mg every 8 hours for additional blood pressure control. 6. Acute on chronic systolic congestive heart failure exacerbation. Present on admission. Active -Chest x-ray with findings of fluid overload. Clinically patient with lower extremity edema and mild JVD. -Echocardiogram showed EF of 35-40% and severe pulmonary hypertension -Pro-BNP 8784 -Furosemide IV 40mg given in the ED. -Furosemide 40 mg once daily was resumed. -Monitor I/O and daily weights -Will increase furosemide to 80 mg once daily if no decrease in weight or inadequate urine output 7. Suspected pulmonary embolism, known left leg DVT. Present on admission. Active -Doppler of lower extremities shows left lower extremity DVT -Heparin gtt -V/Q scan as above, see #1. 8. Acute kidney injury on chronic kidney disease. Present on admission. Active -Chronic component as patient has longstanding hypertension and see #5 above -Creatinine 1.70 initially but improved to 1.52 today -Renal ultrasound shows mild cortical thinning and increased renal cortical echogenicity bilaterally -Avoid nephrotoxins -Hold home allopurinol for now. -Nephrology was consulted in the emergency department. Will hold on consulting nephrology for today. Nephrology consult tomorrow if metabolic acidosis and kidney function did not improve. 9. Bilateral lower leg edema, acute. Present on admission. - Possible cellulitis. It may be stasis dermatitis from chronic venous congestion. See echocardiogram above. - Streptozyme and MRSA screen negative -Patient is currently getting ceftriaxone and as recommended per infectious disease, we will limit his antibiotic regimen to 5 days. If no change in appearance of his erythema, warmth, and edema, then consider discontinuing it sooner. -Infectious disease consulted. His time and recommendations are appreciated. -Continue to monitor 10. Hyperkalemia, acute. Present on admission. Improved. -Possibly related to acute kidney injury and metabolic acidosis -Patient received Kayexalate and Lasix in the ED -Ordered insulin yesterday but it was refused by the patient. -Follow with CMP 11. Coronary artery disease, chronic. Present on admission. -Troponin elevated but given SHMUEL and elevated BNP, it is likely from demand ischemia. Echocardiogram shows severe pulmonary hypertension. Pt has a likely PE. -Continued home aspirin and clopidogrel -Pt is on heparin gtt for a known DVT 12. Acute stress reaction. Present on admission. Improved -Patient denies current suicidal ideation -Psychiatry consulted and following and their time and recommendations are appreciated. 13. Gastroesophageal reflux disease, chronic. Present on admission. -Continued home famotidine 14. Diabetes mellitus type II, diet controlled, chronic. Present on admission. -Sliding insulin scale -HgbA1c 7.1% 15. Hypothyroidism, chronic. Present on admission. -Patient does not have levothyroxine listed in his home medications. -TSH tomorrow Patient Status: Patient is admitted under inpatient status with expected length of stay greater than 2 midnights due to severity of presenting symptoms, risk of adverse event, and complexity of treatment plan. DVT prophylaxis: heparin drip Pain Evaluation: Adequate Pain Control VTE Prophylaxis: Other (Heparin gtt) Resuscitation Status: Limited Interventions (DNI) Limited Interventions: Compressions, Cardioversion/Defibrillation, BiPAP, Medications and IV Fluid Time spent 45 minutes Valencia Jamison DO Jan 11, 2017 19:13 Fan Palomares MD Jan 13, 2017 07:32
[2017-01-11] MEDS: cefTRIAXone Inj 2,000 MG in Dextrose 5% Minibag Plus 50 ML IV SCH (20:36)
[2017-01-12] VITALS (9 sets, daily range): BP systolic 141–166; BP diastolic 60–73; PULSE 42–60; RESP 20–26; O2SAT 93–98
[2017-01-12 04:32] LABS: BASOPHILS % (AUTO) 0.8 % (0-3); EOSINOPHILS % (AUTO) 2.5 % (0-5); MONOCYTES % (AUTO) 18.2 % (4-12); Mean Corpuscular Hemoglobin 29.4 pg (27.0-35.0); NEUTROPHILS % (AUTO) 62.4 % (40-74); Platelet Count 172 bil/L (150-400)
--- NOTE | 2017-01-12 06:06 | NUR ---
Refusal of care Pt refusing blood sugar checks, some medications and being on bedrest. Pt will refuse help getting out of bed and going to bathroom, pt refusing to use urinal or hat in toilet. Pt should be on bedrest, if not pt should be 1PA and is somewhat unsteady on feet. Educated pt on the importance of safety and pt still not agreeable to help. Pt and would like to go home and are hoping to be DC'd today. VSS and Tele 2nd heart block 30's to 50's.
[2017-01-12] MEDS: Insulin LISPRO 300 Unit/3 mL Inj SUBQ SCH ×4 (08:00→22:00)
[2017-01-12] MEDS: Isosorbide Dinitrate 40 mg ER24 Tablet PO SCH ×2 (08:27→20:02)
--- NOTE | 2017-01-12 11:49 | CONS ---
[address] [address] CONSULTATION REPORT PATIENT: ALISA TERRAZAS : 1935 MR#: [id number] ADMIT: 01/09/2017 JOB ID: [id number] DATE OF SERVICE: 01/12/2017 HISTORY OF PRESENT ILLNESS: The patient is a very pleasant 81-year-old white male who was admitted to [facility] for extensive lower extremity edema and shortness of breath. At the time of admission, his creatinine was elevated at 1.7 and since that time it has risen to a level of 1.93 today. He has also had a persistent metabolic acidosis. Renal consultation is being sought for further evaluation of his metabolic acidosis and his chronic kidney disease. The patient has had longstanding issues of bilateral lower extremity edema. This is frequently complicated by episodes of saundra erythema involving the entire distal 2/3 of both lower extremities. He also has ulceration on his left medial distal aspect of his left lower leg. [facility] and Dr. Bradshaw intermittently. On the day of admission he was markedly short of breath and had increasing lower extremity edema. He was admitted to the hospital where in the emergency department a Doppler study showed a significant thrombus of the left superficial femoral vein, popliteal vein, and posterior tibial vein. Upon admission he was placed on anticoagulation and was once again seen by Dr. Bradshaw and Cardiology. The patient has some rather unusual alternative medical beliefs. He is also seen by a windows laptop technician and is on a variety of medications and herbal preparations. He has a history of "diet-controlled diabetes." He has refused any treatment for diabetes in the past. He also has a history of coronary artery disease and hypertension with hypertensive heart disease and hypertensive nephrosclerosis. An echocardiogram done during this admission shows an ejection fraction of about 35% to 40% with some global hypokinesis noted. He denies a history of any prior renal problems. He denies any history of any prostate problems, difficulty with urination, increased frequency, hesitancy, or urgency. Furthermore, there is no history of any hematuria, proteinuria, recurrent urinary tract infections, or renal lithiasis. He does have a history of gout but denies a history of hepatitis. Reviewing his medications, I do not see that he is on an ANDREW inhibitor or receptor yari. 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 PAST MEDICAL HISTORY: Significant for diabetes which is untreated, hypertension with hypertensive heart disease and hypertensive nephrosclerosis, coronary artery disease, ischemic cardiomyopathy, congestive heart failure, gout. He denies a history of any prior tuberculosis, stroke, asthma, or emphysema. During this admission his son to be in a second-degree heart block and evidence of pulmonary hypertension. ALLERGIES: PENICILLIN AND LASIX. SOCIAL HISTORY: He denies the use of any alcohol, tobacco, or illicit drugs. He is retired from the [employer] and he is normally active in his activities of daily living. FAMILY HISTORY: Remarkable for breast cancer in his mother. REVIEW OF SYSTEMS: Significant for chronic lower extremity edema with acute exacerbations and what appears to be cellulitis versus lipodystrophy diabeticorum, chronic shortness of breath, or orthopnea. However, he denies any current chest pain. His appetite is good. He has not had any frequent nausea, vomiting, constipation, or diarrhea. He has not had any fever or chills. MEDICATIONS: At the time of my evaluation include hydralazine, Lasix, aspirin, Plavix, ceftriaxone, isosorbide, Pepcid, insulin. PHYSICAL EXAMINATION: Reveals a well-developed 81-year-old white male who was alert and oriented x3, in no distress at the time of my evaluation. HEENT examination is remarkable for pale sclerae. He also has evidence of conversational dyspnea and some mild use of his accessory muscles of respiration. Neck is supple, without adenopathy, thyromegaly. However, he does have jugular venous distention at approximately 90 degrees. Lungs showed some increase in AP diameter but otherwise were clear. Heart was regular and rhythmical, although quite bradycardic. Abdomen is soft, without any tenderness, rebound, guarding, masses, or hepatosplenomegaly. Extremities do not show any evidence of any clubbing, cyanosis, or edema; however, half and half nails are noted. Skin turgor is good. His distal lower extremities showed some mild edema bilaterally, a bit more pronounced on the left as compared to the right. He has circumferential erythematous redness extending up to the proximal 1/3 of his both lower legs. There is about a 2 cm ulceration on the left medial aspect of his lower leg. LABORATORY EXAMINATION: An ultrasound revealed relatively normal size kidneys without evidence of obstruction; however, he does have some cortical thinning consistent with chronic kidney disease. This morning his sodium is 140, potassium 4.8, chloride 110, CO2 of 12, BUN and creatinine were 47 and 1.93. His glucose is 156. Hemoglobin A1c is 7.1. Liver function studies are normal. His albumin is low at 3.1. Urinalysis taken at time of admission showed a specific gravity 1.020, pH of 5. Tests for protein and occult blood were both positive. He had 3-10 WBCs per high-power field. Otherwise were unremarkable. IMPRESSION: 1. Acute on chronic kidney injury secondary to cardiac decompensation and possible intravascular volume depletion. 2. Diabetic nephropathy. 3. Hypertension with hypertensive heart disease and hypertensive nephrosclerosis. 4. 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 5. Deep venous thrombosis. RECOMMENDATION: I would like to obtain a urine protein/creatinine ratio along with the uric acid and a serum protein electrophoresis. I would also like to start him on chlorthalidone 25 mg once a day which can help in his renal tubular acidosis. I have reviewed some of his some herbal medications with his and made recommendations to stop several of these. Once again, I would like to thank you for allowing me to participate in the care of this most pleasant and interesting patient. I will be following him closely with you. CC: Yaquelin Birmingham DO
--- NOTE | 2017-01-12 11:52 | PCM.PNMED ---
Subjective Date of Service Jan 12, 2017 Subjective is an 81-year-old male with type 2 diabetes mellitus, hypertension and CAD with history of [place] presenting as a referral from [facility] for shortness of breath. Patient is accompanied by his at bedside. This morning, Mr. Walsh reports that he is feeling well and still would like to go home. He is willing to stay until Sunday. He denies shortness of breath, chest pain, fever, chills, and cough. Review of patient's previous records show that he have CKD stage 3, CHF, hypothyroidism, and prior CVA in addition to reported hypertension and coronary artery disease. Today, his brought in his herbal supplements for review. They include a mushroom based comprehensive immune support, tumeric, basil, hyssop herb, clay, and a few multiple herbal mixtures. Exam Vital Signs Vital Sign - Last Date Time Temp Pulse Resp B/P Pulse Ox O2 Delivery O2 Flow Rate FiO2 01/12/17 05:26 42 01/12/17 03:36 36.8 26 141/63 97 Room Air 01/11/17 07:15 2.00 Intake and Output 01/11/17 01/11/17 01/12/17 Cumulative From/Thru 15:00 23:00 07:00 01/09/17 17:14 - 01/12/17 06:24 Intake Total 2694 ml 300 ml 4862 ml Output Total 600 ml 1326 ml Balance 2094 ml 300 ml 3536 ml Intake Oral 1600 ml 300 ml 2978 ml IV Total 1094 ml 1884 ml Output Urine Total 600 ml 1325 ml Estimated Blood Loss 1 ml # Voids 1 6 # Bowel Movements 1 2 Exam General: Elderly patient sitting upright in bed comfortably. No acute distress, well-developed, well-nourished, appropriately interactive HEENT: Normocephalic, atraumatic. External ears without defect. Pupils equal, round, and reactive to light. Oral mucosa pink with dry mucosa. Neck: Supple. Mild jugular venous distension. No lymphadenopathy or thyromegaly. Cardiovascular: Regular rate and rhythm. No murmurs, rubs, or gallops appreciated Pulmonary: Tachypneic. Clear to auscultation bilaterally with no crackles, wheezes, or rhonchi. Increased respiratory effort with use of accessory muscles. Abdomen: Bowel tones present. Soft, nontender, nondistended. Extremities: Left lower extremity with edema, swelling and confluent erythema and warmth to 3/4 lower leg distal to knee. Right lower extremity with edema, swelling and erythema and warmth half way up lower leg distal to knee. Onychomycosis of bilateral toenails. Neurological: Cranial nerves grossly intact. Normal muscle strength, tone, and bulk. Psychiatric: Normal mood and affect. Alert and oriented to person, place, and time. IVs and Medications Medications Reviewed: Medications were reviewed in detail Lab and Diagnostics Result Diagram: 01/12/1740901/12/17409 X-Rays, CTs and MRIs PROCEDURE: US VEINOUS LEG DUPLEX UNILATERAL, LEFT IMPRESSION: Occlusive thrombus within the left superficial femoral vein, popliteal vein, and posterior tibial vein. These findings were discussed with Dr. Lopez at 7:45 PM by the pharmacy tech customer service. Approved by: Rosaura Angel M.D. on 01/09/2017 at 20:08 PROCEDURE: X-RAY CHEST ONE VIEW, PORTABLE IMPRESSION: 1. Low lung volumes and basilar opacities which may represent atelectasis, although aspiration/infection could also be considered in the differential. 2. Interstitial opacities and cardiomegaly suspicious for fluid overload. Approved by: Rosaura Angel M.D. on 01/09/2017 at 18:50 PROCEDURE: US RENAL SONOGRAM IMPRESSION: 1. Mild cortical thinning and increased renal cortical echogenicity bilaterally , compatible with medical renal disease. 2. No hydronephrosis. Approved by: Carissa Boyd M.D. on 01/10/2017 at 12:45 Cardiac Echo Impressions Echocardiogram Report Interpretation Summary The left ventricle is mildly dilated. The ejection fraction is estimated to be 35-40%. There is severe hypokinesis of the mid and distal septum, and akinesis of the septum and posterior wall. The anterior wall is hypokinetic and in apical inferior wall is akinetic. 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 There is severe pulmonary hypertension. The right ventricular systolic pressure is estimated at 89 mmHg assuming a right atrial pressure of 15 mm Hg. The right ventricle is mildly dilated. The right ventricular systolic function is normal. There is moderate to severe mitral regurgitation. There is moderate biatrial enlargement. The patient was in third degree heart block during the exam. The heart rate ranged between 50-70 bpm during the study. No other echocardiographic abnormalities seen. Reading Physician:04: 50 PM Assessment & Plan Patient is an 81-year-old male with type 2 diabetes mellitus, hypertension and CAD with history of [place] presenting as a referral from [facility] for shortness of breath and admitted for left lower extremity DVT, acute CHF exacerbation, acute kidney injury, hyperkalemia, suspected PE and possible lower extremity cellulitis. 1. Acute dyspnea on exertion. Present on admission. Active. -Initially tachypneic and oxygen saturation in 90s. -Chest x-ray reads basilar opacities which may represent atelectasis, although aspiration/infection could also be considered in the differential. Interstitial opacities and cardiomegaly suspicious for fluid overload. Echocardiogram shows EF of 35-40% and severe pulmonary hypertension. -Likely multifactorial secondary to likely congestive heart failure exacerbation , suspected pulmonary embolism, probable chronic pulmonary hypertension as seen on echocardiogram, and patient has metabolic acidosis. -Legionella negative, streptococcal pneumoniae negative, viral PCR negative -Supplemental oxygen as needed -Patient has been refusing oxygen. -V/Q scan to evaluate for suspected pulmonary embolism was refused by patient. We will hold on this for now as we are actively treating the patient for a DVT and this would not change the treatment. 2. Second and third degree heart block. Unknown acuity. Present on admission. Active. -Unknown acuity. Possibly an unknown longstanding issue. -Telemetry -Cardiology consulted and following patient. Their time and recommendations are appreciated. 3. Left lower extremity DVT, acute. Present on admission. Active. -Doppler US showed an occlusive thrombus within the left superficial femoral vein, popliteal vein, and posterior tibial vein. -Heparin gtt -Will need to discuss with patient and about outpatient anticoagulant options 4. Metabolic acidosis, acute. Present on admission. Active -Possibly secondary to chronic kidney disease. Notes from his primary care physician report CKD stage 3. Prior BUN 34, creatinine 1.41 on 03/22/2016. In 2012, BUN 33, creatinine 1.52. -Lactic acid within normal limits, no ketones but protein in the urine -Follow with CMP -Nephrology consulted and following. Their time and recommendations are appreciated. -Started sodium bicarbonate 650 mg BID 5. Hypertension, chronic. Present on admission -Currently patient is hypertensive but improving -Isosorbide nitrate 40 mg twice a day resumed -Held patient's home ANDREW inhibitor due to acute kidney injury. -Avoiding beta blockers, CCB due to heart block -Furosemide 40 mg once daily resumed -Cardiology recommended hydralazine 50 mg every 8 hours for additional blood pressure control. -Chlorthalidone 25 mg once daily added to regimen 6. Acute on chronic systolic congestive heart failure exacerbation. Present on admission. Active -Chest x-ray with findings of fluid overload. Clinically patient with lower extremity edema and mild JVD. -Echocardiogram showed EF of 35-40% and severe pulmonary hypertension -Pro-BNP 8784 -Furosemide IV 40mg given in the ED. -Furosemide 40 mg once daily was resumed. -Monitor I/O and daily weights -Will increase furosemide to 80 mg once daily if no decrease in weight or inadequate urine output 7. Suspected pulmonary embolism. Present on admission. Active -Doppler of lower extremities shows left lower extremity DVT -Heparin gtt -V/Q scan as above, see #1. 8. Acute kidney injury on chronic kidney disease. Present on admission. Active -Chronic component as patient has longstanding hypertension and see #5 above -Creatinine 1.70 initially but improved to 1.52 today -Renal ultrasound shows mild cortical thinning and increased renal cortical echogenicity bilaterally -Avoid nephrotoxins -Hold home allopurinol for now. -Nephrology consulted and following as above. 9. Bilateral lower leg edema, acute. Present on admission. - Possible cellulitis. It may be stasis dermatitis from chronic venous congestion. See echocardiogram above. - Streptozyme and MRSA screen negative -Patient is currently getting ceftriaxone and as recommended per infectious disease, we will limit his antibiotic regimen to 5 days. Discontinued today. -Infectious disease consulted. His time and recommendations are appreciated. -Continue to monitor 10. Possible basilar pneumonia Present on admission. Active -Chest x-ray shows possible basilar pneumonia but it is likely secondary to pulmonary edema from CHF -See #1 above -Ceftriaxone discontinued. 11. Hyperkalemia, acute. Present on admission. Improved. -Possibly related to acute kidney injury and metabolic acidosis -Patient received Kayexalate and Lasix in the ED -Follow with CMP 12. Coronary artery disease, chronic. Present on admission. -Troponin elevated but given SHMUEL and elevated BNP, it is likely from demand ischemia. Echocardiogram shows severe pulmonary hypertension. Pt has a likely PE. -Continued home aspirin and clopidogrel -Pt is on heparin gtt for a known DVT 13. Acute stress reaction. Present on admission. Improved -Patient denies current suicidal ideation -Psychiatry consulted and following and their time and recommendations are appreciated. 14. Gastroesophageal reflux disease, chronic. Present on admission. -Continued home famotidine 15. Diabetes mellitus type II, diet controlled, chronic. Present on admission. -Sliding insulin scale -HgbA1c 7.1% 16. Hypothyroidism, chronic. Present on admission. -Patient does not have levothyroxine listed in his home medications. -TSH within normal limits Patient Status: Patient is admitted under inpatient status with expected length of stay greater than 2 midnights due to severity of presenting symptoms, risk of adverse event, and complexity of treatment plan. DVT prophylaxis: heparin drip VTE Prophylaxis: Other (Heparin gtt) Resuscitation Status: Limited Interventions (DNI) Limited Interventions: Compressions, Cardioversion/Defibrillation, BiPAP, Medications and IV Fluid Time spent 35 minutes Attending Statement Patient seen and examined with house staff. Agree with all attached documentation. Valencia Jamison DO Jan 12, 2017 06:47 Fan Palomares MD Jan 13, 2017 07:41
--- NOTE | 2017-01-12 12:21 | PCM.PNCARD ---
Subjective Date of service Jan 12, 2017 Chief Complaint SOB/Edema Constitutional: Denies: Chills, Fever ENT: Denies: Ear Pain Cardiovascular: Reports: Irregular Heart Rate, Denies: Chest Pain Respiratory: Denies: Cough Gastrointestinal: Denies: Abdominal Pain Musculoskeletal: Reports: Redness, Swelling, Weakness Neurological: Denies: Confusion Exam Vital Signs Vital Sign - Last Date Time Temp Pulse Resp B/P Pulse Ox O2 Delivery O2 Flow Rate FiO2 01/12/17 12:07 36.4 60 20 148/60 93 Room Air 01/11/17 07:15 2.00 Intake and Output 01/11/17 01/11/17 01/12/17 Cumulative From/Thru 15:00 23:00 07:00 01/09/17 17:14 - 01/12/17 06:24 Intake Total 2694 ml 300 ml 4862 ml Output Total 600 ml 1326 ml Balance 2094 ml 300 ml 3536 ml Intake Oral 1600 ml 300 ml 2978 ml IV Total 1094 ml 1884 ml Output Urine Total 600 ml 1325 ml Estimated Blood Loss 1 ml # Voids 1 6 # Bowel Movements 1 2 General: Pleasant Cooperative Mildly obese Skin: Warm & dry to touch Cardiac: Regular rhythm (bradycardic) Extremities: Edema Cellulitis Neurological: Alert & oriented Additional Information: Echocardiogram Report Name: ALISA TERRAZAS Study Date: 01/10/2017 Height: 71 in Hospital [facility] Weight: 185 lb Gender: Male BSA: 2.0 m2 : 1935 Age: 81 yrs BP: 177/66 mmHg Reason For Study: EDEMA, SHORTNESS OF BREATH Ordering Physician: [facility] Performed By: Jabier Tolentino Referring Physician: Juvenal Dodge Interpretation Summary The left ventricle is mildly dilated. The ejection fraction is estimated to be 35-40%. There is severe hypokinesis of the mid and distal septum, and akinesis of the septum and posterior wall. The anterior wall is hypokinetic and in apical inferior wall is akinetic. 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 There is severe pulmonary hypertension. The right ventricular systolic pressure is estimated at 89 mmHg assuming a right atrial pressure of 15 mm Hg. The right ventricle is mildly dilated. The right ventricular systolic function is normal. There is moderate to severe mitral regurgitation. There is moderate biatrial enlargement. The patient was in third degree heart block during the exam. The heart rate ranged between 50-70 bpm during the study. No other echocardiographic abnormalities seen. Lab and Diagnostics Labs CBC Test 01/09/17 22:20 01/12/17 04:10 Hold Purple Top Tube Received (Received) White Blood Count 9.6th/mm3 (3.8-10.1) Red Blood Count 4.69mil/mm3 (4.40-5.80) Hemoglobin 13.8g/dL (13.8-17.2) Hematocrit 40.8% (41.0-50.0) Mean Corpuscular Volume 87.0fL (81-100) Mean Corpuscular Hemoglobin 29.4pg (27.0-35.0) Mean Corpuscular Hemoglobin Concent 33.8% (32.0-37.0) Red Cell Distribution Width 19.1% (12.3-15.4) Platelet Count 172bil/L (150-400) Neutrophils (%) (Auto) 62.4% (40-74) Lymphocytes (%) (Auto) 15.8% (14-46) Monocytes (%) (Auto) 18.2% (4-12) Eosinophils (%) (Auto) 2.5% (0-5) Basophils (%) (Auto) 0.8% (0-3) CMP Test 01/09/17 18:12 01/09/17 22:20 01/10/17 03:21 01/12/17 04:10 Lactic Acid Level 1.4mmol/L Magnesium Level 2.0mg/dL Pro-B-Type Natriuretic Peptide 8784pg/mL Hold [place] Top Tube Received Hold [place] Top Tube Received Hemoglobin A1c 7.1% Troponin T 0.133ug/L Procalcitonin 0.14ng/mL Sodium Level 140mEq/L Potassium Level 4.8mEq/L Chloride Level 110mEq/L Carbon Dioxide Level 12mmol/L Blood Urea Nitrogen 47mg/dL Creatinine 1.93mg/dL Estimat Glomerular Filtration Rate 36mL/min Glucose Level 156mg/dL Calcium Level 8.3mg/dL Total Bilirubin 0.4mg/dL Aspartate Amino Transf (AST/SGOT) 33U/L Alanine Aminotransferase (ALT/SGPT) 20U/L Alkaline Phosphatase 42U/L Total Protein 5.8g/dL Albumin 3.1g/dL Thyroid Stimulating Hormone (TSH) 1.150uIU/mL Result Diagram: 01/12/1740901/12/17409 Assessment & Plan Problems: (1) Complete heart block Plan: I discussed in detail about his various options and his was present. Currently he still has a potential reversible cause of his complete heart block so I would not recommend a PPM until this is corrected. If and when his metabolic acidosis is corrected and he continues to have complete heart block, then he would have a clear cut indication for PPM. However, he still states that he does not want to have one because he has suffered too much already. He personally does not mind from dying from cardiac arrest which he is informed that he is certainly a high risk for based on his current electrical conduction. His however wants him to have the PPM if warranted and she would like for him to stay over the weekend to see if we can correct his acidosis. She was quite tearful about the whole situation. I will be television receiver analyzer over this weekend and if the patient changes his mind and if he conduction abnormality does not improve after correction of acidosis, then we can schedule him for PPM sometime early next week. For now, I will sign off on this case but if I can be any further assistance please do not hesitate to contact me. Status: Acute ICD Code: I44.2 (2) Cardiomyopathy Status: Acute ICD Code: I42.9 (3) Metabolic acidosis Status: Acute ICD Code: E87.2 (4) DVT (deep venous thrombosis) Qualifiers: DVT location: lower extremity Affected thrombotic vein of extremity: unspecified vein of extremity Laterality: left Chronicity: acute Qualified Code: I82.402 - Acute embolism and thrombosis of unspecified deep veins of left lower extremity Status: Acute ICD Code: I82.409 (5) Cellulitis Qualifiers: Site of cellulitis: extremity Site of cellulitis of extremity: lower extremity Laterality: left Qualified Code: L03.116 - Cellulitis of left lower limb Status: Acute ICD Code: L03.90 (6) Renal insufficiency Status: Acute ICD Code: N28.9 VTE Prophylaxis: Other (Heparin gtt) Resuscitation Status: Limited Interventions (DNI) Limited Interventions: Compressions, Cardioversion/Defibrillation, BiPAP, Medications and IV Fluid Time spent 30 minutes Juvenal Dodge MD Jan 12, 2017 12:21
[2017-01-12] MEDS: Heparin 25K Unit/500mL 0.45 NS 25,000 UNIT in IV Premix 1 EACH IV SCH (12:53)
[2017-01-12 14:40] LABS: APPEARANCE,URINE HAZY (CLEAR,HAZY); COLOR,URINE STRAW (YELLOW); OCCULT BLOOD,URINE NEGATIVE (NEGATIVE); UROBILINOGEN,URINE NORMAL (NORMAL)
--- NOTE | 2017-01-12 16:28 | PROG NOTE ---
[address] [address] PROGRESS NOTE PATIENT: ALISA TERRAZAS : 1935 MR#: [id number] ADMIT: 01/09/2017 JOB ID: [id number] DATE: 01/12/2017 INFECTIOUS DISEASE FOLLOWUP NOTE: REASON FOR FOLLOWUP: Possible bilateral lower extremity cellulitis with definite venous stasis changes. INTERVAL HISTORY: Overnight the patient has had some chills which he reports are basically chronic for him. No fever. No chest pain and no significant shortness of breath. His legs are essentially painless, though they are swollen and erythematous, which is of concern to the patient and his . He has been seen by both cardiology and nephrology during the course of the past two days. Cardiology believes that a pacer is not indicated as he may have a reversible cause of complete heart block, secondary to his metabolic acidosis and other issues. 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 PHYSICAL EXAMINATION: Reveals an afebrile gentleman, temperature 36.4, pulse 60, respiratory rate 20, blood pressure 148/60, saturating well on room air. In no acute distress. Oral cavity negative. Lungs fairly clear. Abdomen is slightly distended, but without tenderness or mass. Lower extremities still with swelling, left greater than right. There is an erythematous cast to the lower extremities but no significant warmth or skin breakdown. LABORATORIES: Include white count 9600, platelet count 172,000. Creatinine 1.93, which is actually rising a bit. BUN 47. LFTs normal. Procalcitonin 0.14 on two measurements. Streptozyme negative. Respiratory viral PCR panel negative. MRSA screen negative and blood cultures negative. IMPRESSION: I see little evidence for any bacterial infection. The patient's symptoms and exam are inconsistent with a significant pulmonary infection and I suspect his problems are more cardiac in terms of the infiltrates seen on his chest x-ray. His lower extremity edema is likely on the basis of right heart failure, as well as his renal insufficiency, and the deep venous thrombosis which has been discovered. He does not have bilateral cellulitis. The patient, of course, does suffer from the heart block, both left- and right-sided heart failure, chronic renal insufficiency with type 4 renal tubular acidosis and profound metabolic acidosis, and a chronic edema of the lower extremities. RECOMMENDATIONS: 1. I would continue on ceftriaxone through January 14, then discontinue. 2. Would continue to wait on the anti DNase B serology. 3. I will see the patient again on Sunday should he remain here in the hospital.
--- NOTE | 2017-01-12 16:41 | NUR ---
Social Work: Continued Discharge Planning D: Pt discussed in am rounds. Pt still requiring hospitalization but refusing care. Pt is very guarded about his medical care. HEALTH AND FITNESS PROFESSOR and case management technician reviewed pt in more detail. Psych note reviewed; at this time, pt has been determined to be non-decisional for medical decisions and pt's will need to be present for all decision making. Pt is currently denying suicidal ideation. There is concern for pt's impulse control and his perception of his hospitalization and illness the longer that he stays in the hospital. Pt's has been present for most of his stay and has not required a sitter. HEALTH AND FITNESS PROFESSOR spoke with the RN at bedside to discuss pt's care. HEALTH AND FITNESS PROFESSOR advised that if pt's is not present, that a sitter be considered for additional safety and monitoring. Psychiatry will see the patient every two days. Pt will need to be seen by psych for final recommendations prior to discharge and to be cleared for discharge. HEALTH AND FITNESS PROFESSOR notified MD of this. A: Pt who is I at baseline and lives at home with his . P: Anticipate pt to not require any SW discharge needs; psychiatry to continue to follow pt for mental health needs and final recommendations. Pt is not currently suicidal but multidisciplinary team to continue to monitor pt's mental status as he can be impulsive as demonstrated by his behavior during transport to the ER. ELEAZAR Amador
--- NOTE | 2017-01-12 17:30 | NUR ---
Pt denies chest pain. Tele Sinus, 1st degree heart block PACs, IVCD, 50s. Pt has history of 2nd degree heart block type II, 30-50. Pt also has hx of 3rd degree heart block. Pt has shortness of breath. HOB raised, nasal cannula encouraged, pt refuses. SPO2 95% on RA Encouraged pt to use call light when using BR but he refuses. at bedside helps pt to BR.
--- NOTE | 2017-01-12 18:30 | NUR ---
Heart Block/Behavior/pt teaching Cardiac: Pt denies chest pain. Tele Sinus, 1st degree heart block PACs, IVCD, 50s. Pt has history of 2nd degree heart block type II, 30-50. Pt also has hx of 3rd degree heart block. Resp: Pt reports he has intermittent SOB. HOB is elevated, pt declines NC, SPO2 96% on RA. GI/: Pt denies N/V/D. Pt refuses to use urinal, uses toilet instead. Neuro: Pt is A&Ox3. Encouraged pt to use call light when using BR but he refuses. at bedside helps pt to BR. Extra time was spent teaching pt and his about heart block and pacemakers. Pt and voice understanding. Pt is calm, pleasant and appropriate. Pt does decline insulin and does not want help toileting. Pt's daughter called with concerns about pt's suicidal ideation and his Hx of paranoia. These concerns were passed on to the charge nurse and the physician.
[2017-01-12] MEDS: cefTRIAXone Inj 2,000 MG in Dextrose 5% Minibag Plus 50 ML IV SCH (23:01)
[2017-01-13] VITALS (8 sets, daily range): BP systolic 125–175; BP diastolic 50–76; PULSE 42–66; RESP 20–28; O2SAT 94–96
[2017-01-13] MEDS ORDERED: 0.9% Sodium Chloride 250 ML ONE (00:17)
[2017-01-13 05:19] LABS: EOSINOPHILS % (AUTO) 3.1 % (0-5); MONOCYTES % (AUTO) 17.5 % (4-12); Mean Corpuscular Hemoglobin 29.9 pg (27.0-35.0); Mean Corpuscular Volume 86.8 fL (81-100); NEUTROPHILS % (AUTO) 60.2 % (40-74); Platelet Count 166 bil/L (150-400)
--- NOTE | 2017-01-13 05:21 | NUR ---
Right Arm Edema / Back Rash / Tele Right forearm and antecubital edema and redness noted at the beginning of the shift. Whole right arm has some redness, but bright jr areas were outlined with marker. Also right upper arm edema noted w/o redness, both areas of edema are non-pitting. Arm elevated on 2 pillows and MD notified. MD came to re-examine Pt, and IV ABX restarted. Pt also c/o itchy back, mild red rash over whole back observed. No c/o chest pain, Tele SB with 1st AVB, IVCD and PVCs, HR in the 40-50s overnight. BPs mildly hypertensive with SBPs in the 148s to 151s, but otherwise stable and Pt remains afebrile. at bedside all night and is moderately anxious tonight.
--- NOTE | 2017-01-13 06:02 | NUR ---
Tele Pt is Afib with 1st AVB and IVCD and PVC's. Now going in and out of 2nd degree AVB with 2:1 conduction and occ in and out of 3rd degree AVB, non-sustaining at this time. HR in the mid 40's, Pt dozing and denies pain.
[2017-01-13] MEDS: Insulin LISPRO 300 Unit/3 mL Inj SUBQ SCH ×4 (07:44→22:00)
[2017-01-13] MEDS: Isosorbide Dinitrate 40 mg ER24 Tablet PO SCH ×2 (07:46→20:37)
[2017-01-13] MEDS: Heparin 25K Unit/500mL 0.45 NS 25,000 UNIT in IV Premix 1 EACH IV SCH (11:25)
--- NOTE | 2017-01-13 11:51 | PCM.PNMED ---
Subjective Date of Service Jan 13, 2017 Subjective This morning the patient is complaining of a diffuse erythema to the right antecubital fossa with multiple new pustules are being performed on both cubital areas. He remains tachypneic although he has only had a slight improvement in his serum bicarbonate level. His pulse rate is better and is now in the upper 60 range. Blood pressure is 140-160 systolic. He denies any nausea, vomiting, or chest pain. This morning his sodium is 138, potassium 4.6, chloride 108, serum bicarbonate of 12, BUN and creatinine 48 and 2.2. His urinalysis was unremarkable. Protein creatinine ratio was 0.2, and his uric acid was normal. Exam Vital Signs Vital Sign - Last Date Time Temp Pulse Resp B/P Pulse Ox O2 Delivery O2 Flow Rate FiO2 01/13/17 10:05 66 01/13/17 07:32 35.8 28 125/68 94 Room Air 01/11/17 07:15 2.00 Intake and Output 01/12/17 01/12/17 01/13/17 Cumulative From/Thru 15:00 23:00 07:00 01/09/17 17:14 - 01/13/17 06:04 Intake Total 2066 ml 504 ml 7432 ml Output Total 100 ml 1426 ml Balance 2066 ml 404 ml 6006 ml Intake Oral 400 ml 200 ml 3578 ml IV Total 1666 ml 304 ml 3854 ml Output Urine Total 100 ml 1425 ml Estimated Blood Loss 1 ml # Voids 5 3 14 # Bowel Movements 1 1 4 Exam HEENT examination is some unremarkable except for some ongoing tachypnea and mild conversational dyspnea. Neck is supple without adenopathy thyromegaly or jugular venous distention. Lungs are clear to auscultation. Heart is regular with a soft systolic murmur. Abdomen is soft without any tenderness rebound guarding masses or hepatosplenomegaly. Extremities 20 evidence of any clubbing , cyanosis, or edema. Skin turgor is good. As noted in the subjective part of this note he has diffuse erythema the antecubital area of the right forearm #2- 3 mm pustules noted. There is no evidence of any lymphadenopathy in the antecubital thorax. Nor is any evidence of any lymphangitis. He has several pustules noted on his left antecubital area. Lab and Diagnostics Result Diagram: 01/13/17 0510 01/13/17 0510 X-Rays, CTs and MRIs PROCEDURE: US VEINOUS LEG DUPLEX UNILATERAL, LEFT IMPRESSION: Occlusive thrombus within the left superficial femoral vein, popliteal vein, and posterior tibial vein. These findings were discussed with Dr. Lopez at 7:45 PM by the orthodontic lab technician. Approved by: Rosaura Angel M.D. on 01/09/2017 at 20:08 PROCEDURE: X-RAY CHEST ONE VIEW, PORTABLE IMPRESSION: 1. Low lung volumes and basilar opacities which may represent atelectasis, although aspiration/infection could also be considered in the differential. 2. Interstitial opacities and cardiomegaly suspicious for fluid overload. Approved by: Rosaura Angel M.D. on 01/09/2017 at 18:50 PROCEDURE: US RENAL SONOGRAM IMPRESSION: 1. Mild cortical thinning and increased renal cortical echogenicity bilaterally , compatible with medical renal disease. 2. No hydronephrosis. Approved by: Carissa Boyd M.D. on 01/10/2017 at 12:45 Cardiac Echo Impressions Echocardiogram Report Interpretation Summary The left ventricle is mildly dilated. The ejection fraction is estimated to be 35-40%. There is severe hypokinesis of the mid and distal septum, and akinesis of the septum and posterior wall. The anterior wall is hypokinetic and in apical inferior wall is akinetic. 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 There is severe pulmonary hypertension. The right ventricular systolic pressure is estimated at 89 mmHg assuming a right atrial pressure of 15 mm Hg. The right ventricle is mildly dilated. The right ventricular systolic function is normal. There is moderate to severe mitral regurgitation. There is moderate biatrial enlargement. The patient was in third degree heart block during the exam. The heart rate ranged between 50-70 bpm during the study. No other echocardiographic abnormalities seen. Reading Physician:04: 50 PM Assessment & Plan Impression #1 diabetic nephropathy #2 type IV renal tubular acidosis #3 acute decompensated right-sided congestive heart failure for tachypnea from respiratory compensation Recommendations #1 discussed with the patient's with the patient and I would like to give him approximately 24 hours of a bicarbonate infusion and increase his oral bicarbonate intake and attempt. Serum bicarbonate level. VTE Prophylaxis: Other (Heparin gtt) Resuscitation Status: Limited Interventions (DNI) Limited Interventions: Compressions, Cardioversion/Defibrillation, BiPAP, Medications and IV Fluid Jakob Bell DO Jan 13, 2017 11:51
--- NOTE | 2017-01-13 12:06 | NUR ---
OC signed ELEAZAR Swift
[2017-01-13] MEDS: Dextrose 5% 1,000 ML IV SCH ×2 (12:31→22:56)
--- NOTE | 2017-01-13 13:04 | PROG NOTE ---
[address] [address] PROGRESS NOTE PATIENT: ALISA TERRAZAS : 1935 MR#: [id number] ADMIT: 01/09/2017 JOB ID: [id number] DATE: 01/13/2017 INFECTIOUS DISEASE FOLLOW UP NOTE: REASON FOR FOLLOWUP: Bilateral lower extremity erythema. INTERVAL HISTORY: Overnight, the patient reports he has continued to be short of breath. This has waxed and waned throughout the night. He has had some chills which have been ongoing for which he reports as being relatively mild. No overt fever. He notes his right arm has been swelling and there has been some tenderness which extends from the antecubital fossa down towards the wrist. His legs are painless though they are swollen and erythematous. The patient's believes that his appetite is diminished and believes this is due to over medication in terms of the multiple drugs and drips he has been receiving. PHYSICAL EXAMINATION: Reveals an afebrile gentleman, temperature 36.4, pulse in the 50s, respiratory rate low 20s, blood pressure 138/50, saturating 96% on room air. He appears weaker each day to my eye but he says he feels fine. Oral cavity without thrush or pharyngitis. His lungs are notable for fair air flow and some crackles at the bases. Cardiac tones without new murmur. Bradycardia continues. The abdomen is soft and nontender. The right upper extremity has a teardrop shaped area of erythema which is not particularly warm, and this extends from his right antecubital area down most of the way to the wrist. There is also an indurated vein which is not tender in the right antecubital area suggesting that this new rash is associated in some way with the IV which was previously there. There are a couple pustular lesions noted but these do not appear to be infectious per se on the same arm. The left arm is smaller overall than the right. LABORATORIES: Include a white count consistently normal at 9200. The differential is normal. Creatinine 2.22. It is slowly worsening. LFTs normal. Procalcitonins were 0.14 on two occasions before, not repeated. Urine with a few white cells. Streptozyme was negative. All cultures negative. IMAGING: No new imaging has been done. I discussed this case with the renal relationship consultant who is attempting a bicarbonate drip to improve his acid-base situation and perhaps lower his tachypnea which at least in part is due to his RTA and severe metabolic acidosis. IMPRESSION: This is a difficult case of a gentleman with venous stasis dermatitis in both lower extremities. I do not think he has infection of the lower extremities but we are continuing a five day course of ceftriaxone through tomorrow as empiric coverage for what could be cellulitis in the lower extremities though that seems somewhat doubtful. His lower extremity chronic edema is on the basis of right heart failure and renal insufficiency as well as a DVT on the left. He also has a heart block and renal insufficiency which seems to be worsening. The swelling of the right arm is concerning. The patient already has a DVT in his left leg so it would be odd if he then developed while on anticoagulation a new clot in his right upper extremity but that certainly appears to be a possibility. I still see no evidence for ongoing bacterial infection. RECOMMENDATIONS: 1. Ceftriaxone through tomorrow, then discontinue. 2. Will wait on the anti DNase B serology. 3. Right upper extremity ultrasound will be ordered.
--- NOTE | 2017-01-13 14:12 | ABG ---
DateTimeAnalyzed 14:06:00 -_ pH ____7.373 - 7.350 7.450 pCO2 ___26.7__ -mmHg 35.0 45.0 pO2 ___48.4__ -mmHg 69.0 116 HCO3- ___15.2__ -mmol/L ABE ___-8.2__ -mmol/L tHb ___13.9__ -g/dL O2Hb ___84.2__ -% COHb ____1.0__ -% MetHb ____0.9__ -% sO2 ___85.8__ -% FIO2 ___21.0__ -% Drawn By LAB - Date/Time Notified____ 14:11:00 -_ Oxygen Device 1 _ROOM AIR - Notified By [facility] - Notified Whom ___Dr. Jakob Bell -____ B 742 -mmHg tO2 ___16.4__ -Vol% Fan test N/A -
--- NOTE | 2017-01-13 17:47 | NUR ---
CP/Arm Redness/Edema Cardiac: Tele SB with 1st AVB, IVCD and PVC's. HR mid 40-50's. Intermittent second degree type two block 2:1 40s. Right forearm with moderate edema and redness noted, elevated on 2 pillows and MD notified. Arm redness and swelling diminished by end of shift. Pt reported chest pressure this afternoon, notified and EKG ordered. When EKG arrived, pt declined to have EKG. The procedure was explained but pt still did not want it. Two hours later pt was willing to have EKG and it was done. notified. Resp: Denies SOB at rest, SpO2 93-96% on RA. Increased dyspnea noted with activity. PT is a DNI and refuses Oxygen when he is SOB. Sats remain mid 90s following exertion despite elevated RR. Venous blood gas obtained. Pt has compensated metabolic acidosis, bicarb increased for this jona and Dr Bell notified. GI/: Pt denies N/V/D. Pt reports sore throat this AM. Neuro: Pt is A&Ox3. Pt responds to questions appropriately. Pt refuses some meds such as insulin. FILIPE. Encouraged pt to use call light when using BR and has been more compliant, still does not want anyone in the BR with him. at bedside helps pt to BR. Pt teaching done on the dangers of falls while on anticoagulation. Pt is shaky today. Addendum: 01/13/17 at 1904 by AMY TAYLOR RN at 18:30 pt got up to use BR. Nurse assisted pt to the door and then pt insisted to be left alone. Upon return to bed pt asked that the continuous pulse ox be taken off. The nurse complied with the request. After leaving the room the tele grout sewer line repairer called to say that leads were off. The pt had removed all leads and refused to let them be put back on. Pt was polite throughout, but insistent. sonography technician and [facility] nurse notified.
--- NOTE | 2017-01-13 18:04 | PCM.PNMED ---
Subjective Date of Service Jan 13, 2017 Subjective is an 81-year-old male with type 2 diabetes mellitus, hypertension and CAD with history of MS presenting as a referral from [facility] for shortness of breath. Patient is accompanied by his at bedside. Overnight, patient had 2nd and 3rd degree AV block on telemetry. This morning, Mr. Walsh reports that he has a new itchy rash on his back. His right upper arm is now red and swollen. He has chills which are chronic. He denies trouble breathing. Exam Vital Signs Vital Sign - Last Date Time Temp Pulse Resp B/P Pulse Ox O2 Delivery O2 Flow Rate FiO2 01/13/17 16:18 36.5 61 20 147/59 95 Room Air 01/11/17 07:15 2.00 Intake and Output 01/12/17 01/12/17 01/13/17 Cumulative From/Thru 15:00 23:00 07:00 01/09/17 17:14 - 01/13/17 06:04 Intake Total 2066 ml 504 ml 7432 ml Output Total 100 ml 1426 ml Balance 2066 ml 404 ml 6006 ml Intake Oral 400 ml 200 ml 3578 ml IV Total 1666 ml 304 ml 3854 ml Output Urine Total 100 ml 1425 ml Estimated Blood Loss 1 ml # Voids 5 3 14 # Bowel Movements 1 1 4 Exam General: Elderly patient sitting upright in bed comfortably. No acute distress, well-developed, well-nourished, appropriately interactive HEENT: Normocephalic, atraumatic. External ears without defect. Pupils equal, round, and reactive to light. Oral mucosa pink with dry mucosa. Neck: Supple. Mild jugular venous distension. No lymphadenopathy or thyromegaly. Cardiovascular: Regular rate and rhythm. No murmurs, rubs, or gallops appreciated Pulmonary: Tachypneic. Clear to auscultation bilaterally with no crackles, wheezes, or rhonchi. Increased respiratory effort with use of accessory muscles. Abdomen: Bowel tones present. Soft, nontender, nondistended. Extremities: Left lower extremity with edema, swelling and confluent erythema and warmth to 2/3 lower leg distal to knee, improving. Right lower extremity with edema, swelling and erythema and warmth 1/3 up lower leg distal to knee, improving. Onychomycosis of bilateral toenails. Erythema and edema of right upper ar. Neurological: Cranial nerves grossly intact. Normal muscle strength, tone, and bulk. Psychiatric: Normal mood and affect. Alert and oriented to person, place, and time. IVs and Medications Medications Reviewed: Medications were reviewed in detail Lab and Diagnostics Result Diagram: 01/13/17 0510 01/13/17 05 X-Rays, CTs and MRIs PROCEDURE: US VEINOUS LEG DUPLEX UNILATERAL, LEFT IMPRESSION: Occlusive thrombus within the left superficial femoral vein, popliteal vein, and posterior tibial vein. These findings were discussed with Dr. Lopez at 7:45 PM by the emissions repair technician. Approved by: Rosaura Angel M.D. on 01/09/2017 at 20:08 PROCEDURE: X-RAY CHEST ONE VIEW, PORTABLE IMPRESSION: 1. Low lung volumes and basilar opacities which may represent atelectasis, although aspiration/infection could also be considered in the differential. 2. Interstitial opacities and cardiomegaly suspicious for fluid overload. Approved by: Rosaura Angel M.D. on 01/09/2017 at 18:50 PROCEDURE: US RENAL SONOGRAM IMPRESSION: 1. Mild cortical thinning and increased renal cortical echogenicity bilaterally , compatible with medical renal disease. 2. No hydronephrosis. Approved by: Carissa Boyd M.D. on 01/10/2017 at 12:45 Cardiac Echo Impressions Echocardiogram Report Interpretation Summary The left ventricle is mildly dilated. The ejection fraction is estimated to be 35-40%. There is severe hypokinesis of the mid and distal septum, and akinesis of the septum and posterior wall. The anterior wall is hypokinetic and in apical inferior wall is akinetic. 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 There is severe pulmonary hypertension. The right ventricular systolic pressure is estimated at 89 mmHg assuming a right atrial pressure of 15 mm Hg. The right ventricle is mildly dilated. The right ventricular systolic function is normal. There is moderate to severe mitral regurgitation. There is moderate biatrial enlargement. The patient was in third degree heart block during the exam. The heart rate ranged between 50-70 bpm during the study. No other echocardiographic abnormalities seen. Reading Physician:04: 50 PM Assessment & Plan Patient is an 81-year-old male with type 2 diabetes mellitus, hypertension and CAD with history of MS presenting as a referral from [facility] for shortness of breath and admitted for left lower extremity DVT, acute CHF exacerbation, acute kidney injury, hyperkalemia, suspected PE and possible lower extremity cellulitis. 1. Acute dyspnea on exertion. Present on admission. Active. -Initially tachypneic and oxygen saturation in 90s. -Chest x-ray reads basilar opacities which may represent atelectasis, although aspiration/infection could also be considered in the differential. Interstitial opacities and cardiomegaly suspicious for fluid overload. Echocardiogram shows EF of 35-40% and severe pulmonary hypertension. -Likely multifactorial secondary to likely congestive heart failure exacerbation , suspected pulmonary embolism, probable chronic pulmonary hypertension as seen on echocardiogram, and patient has metabolic acidosis. -Legionella negative, streptococcal pneumoniae negative, viral PCR negative -Supplemental oxygen as needed -Patient has been refusing oxygen. -V/Q scan to evaluate for suspected pulmonary embolism was refused by patient. We will hold on this for now as we are actively treating the patient for a DVT and this would not change the treatment. -Sodium bicarbonate drip started today per nephrology to improve metabolic acidosis 2. Second and third degree heart block. Unknown acuity. Present on admission. Active. -Unknown acuity. Possibly an unknown longstanding issue. -Telemetry -Cardiology consulted and following patient. Their time and recommendations are appreciated. 3. Left lower extremity DVT, acute. Present on admission. Active. -Doppler US showed an occlusive thrombus within the left superficial femoral vein, popliteal vein, and posterior tibial vein. -Heparin gtt -Will need to discuss with patient and about outpatient anticoagulant options after it has been determined whether or not pt will need pacemaker placement 4. Metabolic acidosis, acute. Present on admission. Active -Renal tubular acidosis, type 4. Likely secondary to chronic kidney disease. Notes from his primary care physician report CKD stage 3. Prior BUN 34, creatinine 1.41 on 03/22/2016. In 2012, BUN 33, creatinine 1.52. -Lactic acid within normal limits, no ketones but protein in the urine -Follow with CMP -Nephrology consulted and following. Their time and recommendations are appreciated. -Increased sodium bicarbonate to 1300 mg BID 5. Hypertension, chronic. Present on admission -Currently patient is hypertensive but improving -Isosorbide nitrate 40 mg twice a day resumed -Held patient's home ANDREW inhibitor due to acute kidney injury. -Avoiding beta blockers, CCB due to heart block -Furosemide 40 mg once daily resumed -Cardiology recommended hydralazine 50 mg every 8 hours for additional blood pressure control. -Chlorthalidone 25 mg once daily added to regimen yesterday -Consider decreasing hydralazine tomorrow to BID or discontinuing it if blood pressure adequately controlled with the addition of chlorthalidone 6. Acute on chronic systolic congestive heart failure exacerbation. Present on admission. Active -Chest x-ray with findings of fluid overload. Clinically patient with lower extremity edema and mild JVD. -Echocardiogram showed EF of 35-40% and severe pulmonary hypertension -Pro-BNP 8784 -Furosemide 40 mg once daily -Monitor I/O and daily weights 7. Suspected pulmonary embolism. Present on admission. Active -Doppler of lower extremities shows left lower extremity DVT -Heparin gtt -V/Q scan as above, see #1. 8. Acute kidney injury on chronic kidney disease. Present on admission. Active -Chronic component as patient has longstanding hypertension and see #5 above -Creatinine 1.70 initially but improved to 1.52 today -Renal ultrasound shows mild cortical thinning and increased renal cortical echogenicity bilaterally -Avoid nephrotoxins -Hold home allopurinol for now. -Nephrology consulted and following as above. 9. Bilateral lower leg edema and erythema, acute. Present on admission. - Possible cellulitis. It may be stasis dermatitis from chronic venous congestion. See echocardiogram above. - Streptozyme and MRSA screen negative -Infectious disease consulted. His time and recommendations are appreciated. -Patient is currently getting ceftriaxone and as recommended per infectious disease, we will limit his antibiotic regimen to 5 days. -Discontinue ceftriaxone tomorrow -Continue to monitor 10. Hyperkalemia, acute. Present on admission. Improved. -Possibly related to acute kidney injury and metabolic acidosis -Patient received Kayexalate and Lasix in the ED -Follow with CMP 11. Coronary artery disease, chronic. Present on admission. -Troponin elevated but given SHMUEL and elevated BNP, it is likely from demand ischemia. Echocardiogram shows severe pulmonary hypertension. Pt has a likely PE. -Continue clopidogrel -Pt is on heparin gtt for a known DVT -Stopped aspirin today as pt reports not taking this at home 12. Acute stress reaction. Present on admission. Improved -Patient denies current suicidal ideation -Psychiatry consulted and following and their time and recommendations are appreciated. 13. Gastroesophageal reflux disease, chronic. Present on admission. -Continued home famotidine 14. Diabetes mellitus type II, diet controlled, chronic. Present on admission. -Sliding insulin scale -HgbA1c 7.1% Patient Status: Patient is admitted under inpatient status with expected length of stay greater than 2 midnights due to severity of presenting symptoms, risk of adverse event, and complexity of treatment plan. VTE Prophylaxis: Other (Heparin gtt) Resuscitation Status: Limited Interventions (DNI) Limited Interventions: Compressions, Cardioversion/Defibrillation, BiPAP, Medications and IV Fluid Time spent 40 min Attending Statement Patient seen and examined with house staff. Agree with all attached documentation. Valencia Jamison DO Jan 13, 2017 16:27 Fan Palomares MD Jan 14, 2017 07:37
[2017-01-13] MEDS: Sodium Bicarb 8.4% 150 mEq/1,000 mL D5W IV SCH ×2 (20:03)
[2017-01-13] MEDS: cefTRIAXone Inj 2,000 MG in Dextrose 5% Minibag Plus 50 ML IV SCH (21:31)
[2017-01-14] VITALS (8 sets, daily range): BP systolic 142–186; BP diastolic 61–68; PULSE 48–67; RESP 20–28; O2SAT 94–95
[2017-01-14 05:29] LABS: MONOCYTES % (AUTO) 15.6 % (4-12); Mean Corpuscular Hemoglobin 29.5 pg (27.0-35.0); Mean Corpuscular Volume 86.5 fL (81-100); NEUTROPHILS % (AUTO) 63.7 % (40-74); Platelet Count 221 bil/L (150-400)
[2017-01-14 05:50] LABS: Magnesium 1.9 mg/dL (1.6-2.6)
--- NOTE | 2017-01-14 05:56 | NUR ---
Tele / Hypertension / IV Infusions Pt non-compliant at the beginning of the shift, refusing to wear his Telemetry. came in around change of shift, and talked Pt into wearing his Telemetry for the rest of the night. No c/o chest pain, Tele SB with 1st AVB, IVCD, and PVCs, Pt also having intermittent 2nd AVB with 2:1 conduction, HR remains in the 50s, and occ down to mid 40s tonight. Pt has been hypertensive tonight with SBPs in the 165-175s. Pt has increased dyspnea with activity, O2 sats remain in the mid 90s%. IV D5+Sodium Bicarb infusin @ 75mls/hour per MD orders. Pt up several times to the bathroom to void tonight. Pt still refusing to use urinal, so no measurable amount available. IV Heparin drip still infusing at 15 units/kg/hour per MD orders, PTTs have been within goal range, but This AMs PTT results are currently not available.
[2017-01-14] MEDS: Insulin LISPRO 300 Unit/3 mL Inj SUBQ SCH ×4 (08:00→21:11)
[2017-01-14] MEDS: Heparin 25K Unit/500mL 0.45 NS 25,000 UNIT in IV Premix 1 EACH IV SCH (09:18)
[2017-01-14] MEDS: Isosorbide Dinitrate 40 mg ER24 Tablet PO SCH ×2 (09:22→20:59)
--- NOTE | 2017-01-14 10:19 | PCM.PNMED ---
Subjective Date of Service Jan 14, 2017 Subjective Patient's sodium bicarbonate and confusion did not start until late yesterday. He is not measuring his urine so I am unsure as to what exactly amount of his urine output. The nurse states that he has been going quite frequently. Yesterday as he had 1727 and an unknown amount out. He states that he is feeling better however he still has some dyspnea. He denies any chest pain, cough, wheezing, or vomiting. This morning his sodium is 140, potassium 4.6, chloride 108, CO2 is 16, BUN and creatinine 46 and 2.07. Exam Vital Signs Vital Sign - Last Date Time Temp Pulse Resp B/P Pulse Ox O2 Delivery O2 Flow Rate FiO2 01/14/17 10:00 65 01/14/17 09:02 36.4 28 142/62 95 Room Air 01/11/17 07:15 2.00 Intake and Output 01/13/17 01/13/17 01/14/17 Cumulative From/Thru 15:00 23:00 07:00 01/09/17 17:14 - 01/14/17 06:13 Intake Total 1223 ml 236 ml 8891 ml Output Total 1426 ml Balance 1223 ml 236 ml 7465 ml Intake Oral 600 ml 236 ml 4414 ml IV Total 623 ml 4477 ml Output Urine Total 1425 ml Estimated Blood Loss 1 ml # Voids 4 6 24 # Bowel Movements 1 5 Exam HEENT examination was unremarkable. Neck is supple without adenopathy or thyromegaly there is mild jugular venous distention 90. Lungs showed a few scattered rhonchi but otherwise clear. Heart is regularly irregular heart rate ranging between 30 and 60. Abdomen is soft without tenderness rebound guarding masses or hepatosplenomegaly. Extremities do not show any evidence of any clubbing or cyanosis. The cellulitis in his right antecubital area seems to be somewhat improving. Lab and Diagnostics Result Diagram: 01/14/1751401/14/17514 X-Rays, CTs and MRIs PROCEDURE: US VEINOUS LEG DUPLEX UNILATERAL, LEFT IMPRESSION: Occlusive thrombus within the left superficial femoral vein, popliteal vein, and posterior tibial vein. These findings were discussed with Dr. Lopez at 7:45 PM by the hydraulic technician. Approved by: Rosaura Angel M.D. on 01/09/2017 at 20:08 PROCEDURE: X-RAY CHEST ONE VIEW, PORTABLE IMPRESSION: 1. Low lung volumes and basilar opacities which may represent atelectasis, although aspiration/infection could also be considered in the differential. 2. Interstitial opacities and cardiomegaly suspicious for fluid overload. Approved by: Rosaura Angel M.D. on 01/09/2017 at 18:50 PROCEDURE: US RENAL SONOGRAM IMPRESSION: 1. Mild cortical thinning and increased renal cortical echogenicity bilaterally , compatible with medical renal disease. 2. No hydronephrosis. Approved by: Carissa Boyd M.D. on 01/10/2017 at 12:45 Cardiac Echo Impressions Echocardiogram Report Interpretation Summary The left ventricle is mildly dilated. The ejection fraction is estimated to be 35-40%. There is severe hypokinesis of the mid and distal septum, and akinesis of the septum and posterior wall. The anterior wall is hypokinetic and in apical inferior wall is akinetic. 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 There is severe pulmonary hypertension. The right ventricular systolic pressure is estimated at 89 mmHg assuming a right atrial pressure of 15 mm Hg. The right ventricle is mildly dilated. The right ventricular systolic function is normal. There is moderate to severe mitral regurgitation. There is moderate biatrial enlargement. The patient was in third degree heart block during the exam. The heart rate ranged between 50-70 bpm during the study. No other echocardiographic abnormalities seen. Reading Physician:04: 50 PM Assessment & Plan Impression #1 acute kidney injury number to diabetic nephropathy #3 type IV renal tubular acidosis #4 chronic kidney disease stage III/4 Recommendations #1 I have instructed the patient and his to save his urine sodium and get an accurate quantification of his urine output. I would also like to continue his IV and oral bicarbonate supplementation. VTE Prophylaxis: Other (Heparin gtt) Resuscitation Status: Limited Interventions (DNI) Limited Interventions: Compressions, Cardioversion/Defibrillation, BiPAP, Medications and IV Fluid Jakob Bell DO Jan 14, 2017 10:19
[2017-01-14] MEDS: Sodium Bicarb 8.4% 150 mEq/1,000 mL D5W IV SCH ×2 (12:23)
--- NOTE | 2017-01-14 15:00 | NUR ---
PTT Heparin 12:45 PTT result of 229 called to nurse. Heparin stopped and stat PTT order entered. Redraw results: 39.9. Considering duration of time that heparin was stopped prior to redraw and pt's PTT and heparin stability over the last two days, heparin was resumed at 14u/hr, up one from previous rate. redraw in 6 hrs.
--- NOTE | 2017-01-14 15:12 | DRSVH ---
PROCEDURE: US VENOUS ARM DUPLEX UNILATERAL, RIGHT INDICATIONS: ? RUE DVT TECHNIQUE: Real-time imaging, as well as color and pulse Doppler interrogation, was performed of the right upper extremity deep veins from the inferior neck to the antecubital fossa. COMPARISON: None. FINDINGS: The internal jugular vein, visualized portions of the subclavian vein, axillary, and brach ial veins are free of intraluminal thrombus. Where physically possible, the veins are normally compr essible. Color and pulse Doppler demonstrate normal intraluminal flow, with expected phasicity and p ulsatility. Additional scanning of the cephalic and basilic veins of the superficial system demonstr ate normal compressibility, without thrombus. IMPRESSION: No evidence of deep venous thrombosis. Dictated by: Devora Ordoñez M.D. on 01/13/2017 at 18:39 Approved by: Devora Ordoñez M.D. on 01/13/2017 at 18:39
--- NOTE | 2017-01-14 17:35 | PCM.PNMED ---
Subjective Date of Service Jan 14, 2017 Subjective He denies shortness of breath or chest pain. He continues to be in a sustained type II second-degree AV block. No syncopal episodes. His legs are less red. His right arm is less red. No abdominal pain. He is strong able to walk back and forth to the bathroom. No fevers or chills Exam Vital Signs Vital Sign - Last Date Time Temp Pulse Resp B/P Pulse Ox O2 Delivery O2 Flow Rate FiO2 01/14/17 15:57 36.5 67 26 186/66 94 Room Air 01/11/17 07:15 2.00 Intake and Output 01/13/17 01/13/17 01/14/17 Cumulative From/Thru 14:59 22:59 06:59 01/09/17 17:14 - 01/14/17 06:13 Intake Total 1223 ml 236 ml 8891 ml Output Total 1426 ml Balance 1223 ml 236 ml 7465 ml Intake Oral 600 ml 236 ml 4414 ml IV Total 623 ml 4477 ml Output Urine Total 1425 ml Estimated Blood Loss 1 ml # Voids 4 6 24 # Bowel Movements 1 5 Exam Alert oriented 3, fluent speech Normal skull. Lungs are clear diminished breath sounds in the bases. Heart is regular without murmur gallop or rub Abdomen soft nontender Extremities 1+ edema, less erythema. Right upper arm less erythema in the antecubital and aspect of the arm, medially. IVs and Medications Medications Reviewed: Medications were reviewed in detail Lab and Diagnostics Result Diagram: 01/14/17 0515 01/14/17 0515 X-Rays, CTs and MRIs PROCEDURE: US VEINOUS LEG DUPLEX UNILATERAL, LEFT IMPRESSION: Occlusive thrombus within the left superficial femoral vein, popliteal vein, and posterior tibial vein. These findings were discussed with Dr. Lopez at 7:45 PM by the ultrasound manager. Approved by: Rosaura Angel M.D. on 01/09/2017 at 20:08 PROCEDURE: X-RAY CHEST ONE VIEW, PORTABLE IMPRESSION: 1. Low lung volumes and basilar opacities which may represent atelectasis, although aspiration/infection could also be considered in the differential. 2. Interstitial opacities and cardiomegaly suspicious for fluid overload. Approved by: Rosaura Angel M.D. on 01/09/2017 at 18:50 PROCEDURE: US RENAL SONOGRAM IMPRESSION: 1. Mild cortical thinning and increased renal cortical echogenicity bilaterally , compatible with medical renal disease. 2. No hydronephrosis. Approved by: Carissa Boyd M.D. on 01/10/2017 at 12:45 Cardiac Echo Impressions Echocardiogram Report Interpretation Summary The left ventricle is mildly dilated. The ejection fraction is estimated to be 35-40%. There is severe hypokinesis of the mid and distal septum, and akinesis of the septum and posterior wall. The anterior wall is hypokinetic and in apical inferior wall is akinetic. 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 There is severe pulmonary hypertension. The right ventricular systolic pressure is estimated at 89 mmHg assuming a right atrial pressure of 15 mm Hg. The right ventricle is mildly dilated. The right ventricular systolic function is normal. There is moderate to severe mitral regurgitation. There is moderate biatrial enlargement. The patient was in third degree heart block during the exam. The heart rate ranged between 50-70 bpm during the study. No other echocardiographic abnormalities seen. Reading Physician:04: 50 PM Assessment & Plan Patient is an 81-year-old male with type 2 diabetes mellitus, hypertension and CAD with history of GA presenting as a referral from [facility] for shortness of breath and admitted for left lower extremity DVT, acute CHF exacerbation, acute kidney injury, hyperkalemia, suspected PE and possible lower extremity cellulitis. 1. 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 Unknown acuity. Present on admission. Active. -This is really shown little improvement with bicarbonate pills and an IV drip. Spoke with cardiology today. There is consensus that he will likely require a pacemaker. The plan is to consult EPS Sunday for possible pacemaker implantation Sunday. We will continue bicarbonate interim. 3. Left lower extremity DVT, acute. Present on admission. Active. -Doppler US showed an occlusive thrombus within the left superficial femoral vein, popliteal vein, and posterior tibial vein. -Heparin gtt -Will need to discuss with patient and about outpatient anticoagulant options after it has been determined whether or not pt will need pacemaker placement 3. 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 Present on admission. Active -Renal tubular acidosis, type 4. Likely secondary to chronic kidney disease. Notes from his primary care physician report CKD stage 3. Prior BUN 34, creatinine 1.41 on 03/22/2016. In 2013, BUN 33, creatinine 1.52. -Lactic acid within normal limits, no ketones but protein in the urine -Follow with [facility] -Nephrology consulted and following. Their time and recommendations are appreciated. -Increased sodium bicarbonate to 1300 mg BID, continue IV sodium bicarbonate drip overnight. His CO2 increased from 12 to 16 in the last 24 hours. 4. Acute on chronic systolic congestive heart failure exacerbation. Present on admission. Active -Chest x-ray with findings of fluid overload. Clinically patient with lower extremity edema and mild JVD. -Echocardiogram showed EF of 35-40% and severe pulmonary hypertension -Pro-BNP 8784 -Furosemide 40 mg once daily -Monitor I/O and daily weights 5. Hypertension, chronic. Present on admission -Currently patient is hypertensive but improving -Isosorbide nitrate 40 mg twice a day resumed -Held patient's home ANDREW inhibitor due to acute kidney injury. -Avoiding beta blockers, CCB due to heart block -Furosemide 40 mg once daily resumed -Cardiology recommended hydralazine 50 mg every 8 hours for additional blood pressure control. -Chlorthalidone 25 mg once daily added to regimen yesterday -Consider decreasing hydralazine tomorrow to BID or discontinuing it if blood pressure adequately controlled with the addition of chlorthalidone 6. Possible pulmonary embolism. Present on admission. Active -Doppler of lower extremities shows left lower extremity DVT -Heparin gtt -V/Q scan as above, see #1. 7. Acute kidney injury on chronic kidney disease. Present on admission. Active -Chronic component as patient has longstanding hypertension and see #5 above -Creatinine 1.70 initially but improved to 1.52 today -Renal ultrasound shows mild cortical thinning and increased renal cortical echogenicity bilaterally -Avoid nephrotoxins -Hold home allopurinol for now. -Nephrology consulted and following as above. 8. Bilateral lower leg edema and erythema, acute. Present on admission. - Possible cellulitis. It may be stasis dermatitis from chronic venous congestion. See echocardiogram above. - Streptozyme and MRSA screen negative -Infectious disease consulted. His time and recommendations are appreciated. -Patient is currently getting ceftriaxone and as recommended per infectious disease, we will limit his antibiotic regimen to 5 days. -Discontinue ceftriaxone tomorrow -Continue to monitor 9. Hyperkalemia, acute. Present on admission. Improved. -Possibly related to acute kidney injury and metabolic acidosis -Patient received Kayexalate and Lasix in the ED -Follow with CMP 10. Coronary artery disease, chronic. Present on admission. -Troponin elevated but given SHMUEL and elevated BNP, it is likely from demand ischemia. Echocardiogram shows severe pulmonary hypertension. Pt has a likely PE. -Continue clopidogrel -Pt is on heparin gtt for a known DVT -Stopped aspirin today as pt reports not taking this at home 11. Acute stress reaction. Present on admission. Improved -Patient denies current suicidal ideation -Psychiatry consulted and following and their time and recommendations are appreciated. 12. Gastroesophageal reflux disease, chronic. Present on admission. -Continued home famotidine 13. Diabetes mellitus type II, diet controlled, chronic. Present on admission. -Sliding insulin scale -HgbA1c 7.1% Patient Status: Patient is admitted under inpatient status with expected length of stay greater than 2 midnights due to severity of presenting symptoms, risk of adverse event, and complexity of treatment plan. VTE Prophylaxis: Other (Heparin gtt) Resuscitation Status: Limited Interventions (DNI) Limited Interventions: Compressions, Cardioversion/Defibrillation, BiPAP, Medications and IV Fluid Time spent 40 min Attending Statement Patient seen and examined with house staff. Agree with all attached documentation. Pain Evaluation: Adequate Pain Control VTE Prophylaxis: Other (Heparin gtt) Resuscitation Status: Limited Interventions (DNI) Limited Interventions: Compressions, Cardioversion/Defibrillation, BiPAP, Medications and IV Fluid Time spent 30 minutes Fan Palomares MD Jan 14, 2017 17:35
--- NOTE | 2017-01-14 18:43 | NUR ---
2nd Degree HB/Urinal use Cardiac: Tele: PVCs and IVCD, switching between SB with 1st AVB mid 40-50's and second degree type two block with 2:1 40s-50's. Second degree block is much more prevalent last night and today. Right forearm with mild trace edema and mild redness noted, right upper arm with non-pitting edema, elevated on 2 pillows. Edema and redness much decreased from yesterday. Vahe lower extremity pitting edema, Left Leg greater than Right leg. Resp: Denies SOB at rest, SpO2 95% on RA. Increased dyspnea noted with activity. PT is a DNI and refuses Oxygen when he is SOB. Sats remain mid 90s following exertion despite elevated RR. GI/: Pt denies N/V/D. Up using the toilet to void, refused to use urinal, Dr Bell discussed the need for using urinal, Nurse and PRIVACY ATTORNEY reenforced teaching and pt has started to be urinal compliant. Bicarb continues per neph. note. Neuro: Pt is A&Ox3. Pt responds to questions appropriately. FILIPE. Encouraged pt to use call light when using BR and has been more compliant, still does not want anyone in the BR with him. at bedside. Pt teaching done on the dangers of falls while on anticoagulation.
--- NOTE | 2017-01-14 20:24 | NUR ---
Phone Call from Daughter Ting: Patient's daughter called and requested a note be made in chart that she had a conversation with her father and he was talking about the fact that the pacer that he would be getting was actually going to be a tracker. She is very concerned about his paranoia and the fact that he might be a danger to himself or others. Message passed along to patient's RN Gaye. Addendum: 01/15/17 at 5015 by GAYE JONES RN Daughter spoke to this nurse as well, both patient and confirmed that daughter could be spoken to about plan of care prior to conversation. Daughter voiced concern about discharge planning and wishes to speak to social media intern over phone. Daughter asked for this to be documented. Sari LA aware.
[2017-01-14] MEDS: cefTRIAXone Inj 2,000 MG in Dextrose 5% Minibag Plus 50 ML IV SCH (21:03)
[2017-01-15] VITALS (9 sets, daily range): BP systolic 148–169; BP diastolic 59–74; PULSE 50–63; RESP 18–24; O2SAT 93–96
[2017-01-15] MEDS: Heparin 5,000 Unit/mL Inj IVPUSH PRN (03:21)
[2017-01-15] MEDS: Sodium Bicarb 8.4% 150 mEq/1,000 mL D5W IV SCH ×2 (05:06)
--- NOTE | 2017-01-15 05:48 | NUR ---
Tele/SBA/Arm/HTN/Resp Pt's tele SBrady w/ rate 40s-50s, 1st degree AVB, IVCD and PVCs, intermittently in 2nd degree block type 2 w/ 2:1 conduction, consistent w/ day report. Pt denies symptoms w/ this. Pt not call light compliant when up to BR and refuses to allow staff to keep door a little open while he is in there. SBA attempted by frequent rounding. Right arm seems to have some increased redness, marked w/ pen, no increased swelling noted, pt denies pain and arm is not warm. SBPs 150s-160s this shift. Pt notably SOB when up to BR, refuses oxygen. Sats maintain 93-95% on RA at rest. Pt denied pain all night. A&O, answers questions appropriately.
--- NOTE | 2017-01-15 06:24 | NUR ---
I&Os/Sleep Pt reminded and encouraged several times by staff to urinate in urinal so that UOP can be measured. Pt noncompliant w/ this though has been up to urinate in BR on several occasions. Pt not sleeping very much at all last night, would get slightly restless at times and reposition self before finding a comfortable position again.
[2017-01-15] MEDS: Insulin LISPRO 300 Unit/3 mL Inj SUBQ SCH ×4 (08:00→22:00)
[2017-01-15] MEDS: Isosorbide Dinitrate 40 mg ER24 Tablet PO SCH ×2 (09:06→20:28)
[2017-01-15] MEDS: Heparin 25K Unit/500mL 0.45 NS 25,000 UNIT in IV Premix 1 EACH IV SCH (09:53)
--- NOTE | 2017-01-15 10:15 | NUR ---
OC: Patient unable to receive OC, asked PRINTED CIRCUIT BOARD ASSEMBLER to follow up with .
--- NOTE | 2017-01-15 11:58 | DRSVH ---
PROCEDURE: X-RAY CHEST ONE VIEW, PORTABLE ([id number]) INDICATIONS: CHF TECHNIQUE: One view of the chest was acquired. COMPARISON: [facility], CR, XR CHEST 1VW (PORTABLE), 01/09/2017, 18:15. FINDINGS: Surgical changes and devices: None. Lungs and pleura: Mild edema present and decreased from previous examination and there has been inter amberly increase in bibasilar airspace opacities. Small effusions. No pneumothorax. Mediastinum: Mediastinal contours appear normal. Heart size is enlarged. Bones and chest wall: No suspicious bony lesions. Overlying soft tissues appear unremarkable. IMPRESSION: 1. Mild edema decreased from prior exam and there has been interval increase in bibasilar airspace op acities consistent with patchy pulmonary edema, aspiration or pneumonia. 2. Small effusions redemonstrated. Dictated by: Oscar JOHNSON Interpreted: Devora Ordoñez MD on 01/15/2017 at 11:57 Transcribed by: LEONOR on 01/15/2017 at 11:58 Approved by: Devora Ordoñez M.D. on 01/15/2017 at 16:35
[2017-01-15] MEDS ORDERED: Furosemide 10 mg/mL 4 mL Inj IVPUSH ONE (12:30)
--- NOTE | 2017-01-15 12:37 | PCM.PNMED ---
Subjective Date of Service Jan 15, 2017 Subjective He has difficulty breathing today. Weight gain noted. LE edema/redness is somewhat improved. Exam Vital Signs Vital Sign - Last Date Time Temp Pulse Resp B/P Pulse Ox O2 Delivery O2 Flow Rate FiO2 01/15/17 11:07 63 01/15/17 08:54 36.6 18 169/72 93 Nasal Cannula 2.00 Intake and Output 01/14/17 01/14/17 01/15/17 Cumulative From/Thru 15:00 23:00 07:00 01/09/17 17:14 - 01/15/17 06:34 Intake Total 2259 ml 440 ml 12245 ml Output Total 250 ml 100 ml 1776 ml Balance 2009 ml 340 ml 9814 ml Intake Oral 1150 ml 440 ml 6004 ml IV Total 1109 ml 5586 ml Output Urine Total 250 ml 100 ml 1775 ml Estimated Blood Loss 1 ml # Voids 4 3 31 # Bowel Movements 2 7 Lab and Diagnostics Result Diagram: 01/14/17 0515 01/15/17 0200 X-Rays, CTs and MRIs PROCEDURE: US VEINOUS LEG DUPLEX UNILATERAL, LEFT IMPRESSION: Occlusive thrombus within the left superficial femoral vein, popliteal vein, and posterior tibial vein. These findings were discussed with Dr. Lopez at 7:45 PM by the front end technician. Approved by: Rosaura Angel M.D. on 01/09/2017 at 20:08 PROCEDURE: X-RAY CHEST ONE VIEW, PORTABLE IMPRESSION: 1. Low lung volumes and basilar opacities which may represent atelectasis, although aspiration/infection could also be considered in the differential. 2. Interstitial opacities and cardiomegaly suspicious for fluid overload. Approved by: Rosaura Angel M.D. on 01/09/2017 at 18:50 PROCEDURE: US RENAL SONOGRAM IMPRESSION: 1. Mild cortical thinning and increased renal cortical echogenicity bilaterally , compatible with medical renal disease. 2. No hydronephrosis. Approved by: Carissa Boyd M.D. on 01/10/2017 at 12:45 Cardiac Echo Impressions Echocardiogram Report Interpretation Summary The left ventricle is mildly dilated. The ejection fraction is estimated to be 35-40%. There is severe hypokinesis of the mid and distal septum, and akinesis of the septum and posterior wall. The anterior wall is hypokinetic and in apical inferior wall is akinetic. 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 There is severe pulmonary hypertension. The right ventricular systolic pressure is estimated at 89 mmHg assuming a right atrial pressure of 15 mm Hg. The right ventricle is mildly dilated. The right ventricular systolic function is normal. There is moderate to severe mitral regurgitation. There is moderate biatrial enlargement. The patient was in third degree heart block during the exam. The heart rate ranged between 50-70 bpm during the study. No other echocardiographic abnormalities seen. Reading Physician:04: 50 PM Assessment & Plan 1. SHMUEL on CKD secondary to ATN and CRS. 2. Worsening SOB, suspected acute on chronic systolic CHF/right sided HF/pulm HTN. 3. left LE DVT, venous stasis and possible cellulitis. 4. 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 5. HTN with hypertensive nephrosclerosis. 6. 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 plan: d/c IVF. start IV lasix 40 mg q12 hr. repeat CXR. continue oral NaHCO3. check PVR. VTE Prophylaxis: Other (Heparin gtt) Resuscitation Status: Limited Interventions (DNI) Limited Interventions: Compressions, Cardioversion/Defibrillation, BiPAP, Medications and IV Fluid Marisel Newman MD Jan 15, 2017 12:37
[2017-01-15] MEDS: Furosemide 10 mg/mL 4 mL Inj IVPUSH SCH ×2 (13:09→20:28)
--- NOTE | 2017-01-15 15:30 | NUR ---
OC Signed ELEAZAR Hernandez
--- NOTE | 2017-01-15 16:00 | PROG NOTE ---
[address] [address] PROGRESS NOTE PATIENT: ALISA TERRAZAS : 1935 MR#: [id number] ADMIT: 01/09/2017 JOB ID: [id number] DATE: 01/15/2017 REASON FOR FOLLOWUP: Erythema, bilateral lower extremities. INTERVAL HISTORY: Over the past 48 hours or so, the patient reports some improvement. He still has periods where he is fairly short of breath but no chest pain. No fevers, though he does report subjective, very subtle chills, which are chronic problem for him. That has not changed. No nausea or vomiting and today was actually able to have breakfast. He is also able now to ambulate a bit with his IV pole. He notes that his right upper extremity swelling has diminished over the weekend, though there is still an erythematous area along the triceps. He also notes that his bilateral lower extremity swelling has diminished, though it is still much worse on the left than the right, and note that he does have a DVT on the left lower extremity. PHYSICAL EXAMINATION: Reveals a consistently afebrile gentleman, temp 36.6, pulse 51, respiratory rate 18, blood pressure 169/72. He is in no acute distress and looks a little more comfortable than previous, though he is obviously still somewhat short of breath. His mental status is clear. His oral cavity without thrush or pharyngitis. His lungs with some crackles at the bases. Cardiac tones: Regular rate and rhythm today. His abdomen is soft and nontender. His right upper extremity edema has diminished since yesterday. There is about a 10 x 4 cm area of nontender erythema along the triceps area, which is not warm to palpation. His left lower extremity shows significant edema as compared to the right, but there is evidence of wrinkling and healing. There is also some shallow peeling of the skin around the ankle at this point. Neither of the lower extremities is warm nor tender, though they are both erythematous below the knee as before. LABORATORIES: Include a white count 9000, basically normal diff. Creatinine 2.15. LFTs normal. Streptozyme negative. Anti-DNase B is pending. All cultures remain negative including MRSA screen. The venous ultrasound of the right upper extremity ordered on the has come back negative. No clot. IMPRESSION: This patient continues to slowly improve. He has multiple issues, including his complex cardiac issues, but at this point, from an Infectious Disease point of view, I see no evidence for ongoing infection. Also, I am glad that he does not have a deep venous thrombosis in his right upper extremity though, of course, we know he has one in his left lower extremity, which is making the swelling and erythema there more persistent. RECOMMENDATIONS: 1. Antibiotics have all been discontinued at this point. 2. We await the anti-DNase B serology. 3. I will continue to follow with you but suspect that there is no active ID issue here and that the patient could probably discharged fairly soon.
--- NOTE | 2017-01-15 16:50 | NUR ---
Behavior Pt. refuses to allow staff or to be in the bathroom with him. Educated pt. and pts. on fall risk and safety. Pt. still adamantly refuses to be helped in bathroom and wishes the door closed. bowling ball grader and marker notified. Nursing staff present to help him up and get him back into bed. Non skid socks on.
--- NOTE | 2017-01-15 16:56 | NUR ---
spiritual care: sw referral conversational visit. pt described some of what is difficult for him including nighttime interruptions. Pt declined jain eucharistic visitor, but reflected on his barbie and desire for prayer. Pt's shared coping, fatigue and feelings of isolation, recollected memories of [place] and family relationships. Prayer will plan to follow
--- NOTE | 2017-01-15 17:21 | NUR ---
Social Work Note: Continued Discharge Planning Data& Assessment: Per MD pt is not medically ready for discharge at this time. Pt will be getting a pacemaker placement in the next 1-2 days. SW met with pt and pt at bedside to discuss discharge planning, SW role explained. Per RN, pt daughter has concerns regarding pt being discharged home when medically ready for safety concerns. SW asked pt if she had any concerns of pt returning home or any concerns about safety in terms of his mental health. Pt denied any concerns and emphasized the importance of pt returning home sooner rather than later. Pt is still denying any suicidal ideation. Per RN, pt did communicate to pt daughter that he believed his pacemaker was a tracking device. Psych to clear pt prior to discharge for final evaluation and recommendations. SW discussed discharge planning with pt and discussed home health as a potential service at time of discharge, since pt is weaker than his baseline at this point in time and will most likely be on new medications that could be managed by an RN during the transition home. Pt confirmed that they both will be homebound at time of discharge. Pt plans to think about if home health services is something they would require at time of discharge. SW to follow up with pt and pt regarding home health. Pt and pt deny any other needs at this time. SW to continue to follow if any needs arise. Plan: Anticipated discharge home when medically ready pending being cleared by psych. Psych to clear pt prior to discharge for final evaluation and recommendations. SW to follow up with pt and pt regarding home health. Pt and pt deny any other needs at this time. SW to continue to follow if any needs arise. ELEAZAR Hernandez
--- NOTE | 2017-01-15 18:38 | PCM.PNMED ---
Subjective Date of Service Jan 15, 2017 Subjective is an 81-year-old male with type 2 diabetes mellitus, hypertension and CAD with history of TN presenting as a referral from [facility] for shortness of breath. Patient is accompanied by his at bedside. Overnight, patient had incidents of 2nd degree, type II AV heart block and 1st degree AV block. Today, Mr. Walsh reports he has trouble breathing this morning. He continues to have an itchy rash on his back. His leg redness has improved but he continues to have redness of his right upper extremity. Exam Vital Signs Vital Sign - Last Date Time Temp Pulse Resp B/P Pulse Ox O2 Delivery O2 Flow Rate FiO2 01/15/17 17:29 36.8 50 22 151/73 93 01/15/17 12:41 Nasal Cannula 2.00 Intake and Output 01/14/17 01/14/17 01/15/17 Cumulative From/Thru 15:00 23:00 07:00 01/09/17 17:14 - 01/15/17 06:34 Intake Total 2259 ml 440 ml 19797 ml Output Total 250 ml 100 ml 1776 ml Balance 2009 ml 340 ml 9814 ml Intake Oral 1150 ml 440 ml 6004 ml IV Total 1109 ml 5586 ml Output Urine Total 250 ml 100 ml 1775 ml Estimated Blood Loss 1 ml # Voids 4 3 31 # Bowel Movements 2 7 Exam General: Elderly patient sitting upright in bed comfortably. No acute distress, well-developed, well-nourished, appropriately interactive. HEENT: Normocephalic, atraumatic. External ears without defect. Pupils equal, round, and reactive to light. Oral mucosa pink with dry mucosa. Cardiovascular: Regular rate and rhythm. No murmurs, rubs, or gallops appreciated Pulmonary: Mildly tachypneic. Mild crackles at the bases bilaterally with no wheezes or rhonchi. Increased respiratory effort with use of accessory muscles. Abdomen: Bowel tones present. Soft, nontender, nondistended. Extremities: Left lower extremity with edema, swelling and moderate erythema to 2/3 lower leg distal to knee, improving. Right lower extremity with edema, swelling and mild erythema 1/3 up lower leg distal to knee, improving. Onychomycosis of bilateral toenails. Erythema and edema of right upper arm. Neurological: Cranial nerves grossly intact. Normal muscle strength, tone, and bulk. Psychiatric: Normal mood and affect. Alert and oriented to person, place, and time. IVs and Medications Medications Reviewed: Medications were reviewed in detail Lab and Diagnostics Result Diagram: 01/14/17 0515 01/15/17 0200 X-Rays, CTs and MRIs PROCEDURE: US VEINOUS LEG DUPLEX UNILATERAL, LEFT IMPRESSION: Occlusive thrombus within the left superficial femoral vein, popliteal vein, and posterior tibial vein. These findings were discussed with Dr. Lopez at 7:45 PM by the data collection technician. Approved by: Rosaura Angel M.D. on 01/09/2017 at 20:08 PROCEDURE: X-RAY CHEST ONE VIEW, PORTABLE IMPRESSION: 1. Low lung volumes and basilar opacities which may represent atelectasis, although aspiration/infection could also be considered in the differential. 2. Interstitial opacities and cardiomegaly suspicious for fluid overload. Approved by: Rosaura Angel M.D. on 01/09/2017 at 18:50 PROCEDURE: US RENAL SONOGRAM IMPRESSION: 1. Mild cortical thinning and increased renal cortical echogenicity bilaterally , compatible with medical renal disease. 2. No hydronephrosis. Approved by: Carissa Boyd M.D. on 01/10/2017 at 12:45 PROCEDURE: X-RAY CHEST ONE VIEW, PORTABLE IMPRESSION: 1. Mild edema decreased from prior exam and there has been interval increase in bibasilar airspace opacities consistent with patchy pulmonary edema, aspiration or pneumonia. 2. Small effusions redemonstrated. Approved by: Devora Ordoñez M.D. on 01/15/2017 at 16:35 Cardiac Echo Impressions Echocardiogram Report Interpretation Summary The left ventricle is mildly dilated. The ejection fraction is estimated to be 35-40%. There is severe hypokinesis of the mid and distal septum, and akinesis of the septum and posterior wall. The anterior wall is hypokinetic and in apical inferior wall is akinetic. 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 There is severe pulmonary hypertension. The right ventricular systolic pressure is estimated at 89 mmHg assuming a right atrial pressure of 15 mm Hg. The right ventricle is mildly dilated. The right ventricular systolic function is normal. There is moderate to severe mitral regurgitation. There is moderate biatrial enlargement. The patient was in third degree heart block during the exam. The heart rate ranged between 50-70 bpm during the study. No other echocardiographic abnormalities seen. Reading Physician:04: 50 PM Assessment & Plan Patient is an 81-year-old male with type 2 diabetes mellitus, hypertension and CAD with history of TN presenting as a referral from [facility] for shortness of breath and admitted for left lower extremity DVT, acute CHF exacerbation, acute kidney injury, hyperkalemia, suspected PE and possible lower extremity cellulitis. 1. 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 Unknown acuity. Present on admission. Active. -Pacemaker placement scheduled for Sunday 2. Left lower extremity DVT, acute. Present on admission. Active. -Doppler US showed an occlusive thrombus within the left superficial femoral vein, popliteal vein, and posterior tibial vein. -Heparin gtt -Will stop heparin and transition pt to oral anticoagulant tomorrow morning after discussion with pt and his 3. 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 Present on admission. Active -Renal tubular acidosis, type 4. Likely secondary to chronic kidney disease. Notes from his primary care physician report CKD stage 3. Prior BUN 34, creatinine 1.41 on 03/22/2016. In 2012, BUN 33, creatinine 1.52. -Lactic acid within normal limits, no ketones but protein in the urine -Follow with CMP -Nephrology consulted and following. Their time and recommendations are appreciated. -Sodium bicarbonate to 1300 mg BID His CO2 increased from 12 to 18. Discontinued sodium bicarbonate drip. 4. Acute on chronic systolic congestive heart failure exacerbation. Present on admission. Active -Chest x-ray with findings of fluid overload and repeat chest x-ray today shows bibasilar airspace opacities. Clinically, patient with lower extremity edema and mild JVD. -Echocardiogram showed EF of 35-40% and severe pulmonary hypertension -[place]NP 8784 [place] [address] -Furosemide 40 mg IV BID started today -Monitor I/O and daily weights tomorrow 5. Hypertension, chronic. Present on admission -Currently patient is hypertensive but improving -Isosorbide nitrate 40 mg twice a day resumed -Held patient's home ANDREW inhibitor due to acute kidney injury. -Avoiding beta blockers, CCB due to heart block -Furosemide 40 mg IV BID -Cardiology recommended hydralazine 50 mg every 8 hours for additional blood pressure control. -Chlorthalidone 25 mg once daily added to regimen 6. Possible pulmonary embolism. Present on admission. Active -Doppler of lower extremities shows left lower extremity DVT -Heparin gtt -V/Q scan as above, see #2 7. Acute kidney injury on chronic kidney disease. Present on admission. Active -Chronic component as patient has longstanding hypertension and see #5 above -Creatinine 1.70 initially, 2.15 today -Renal ultrasound shows mild cortical thinning and increased renal cortical echogenicity bilaterally -Avoid nephrotoxins -Hold home allopurinol for now. -Nephrology consulted and following as above. 8. Bilateral lower leg and right upper extremity edema and erythema, acute. Present on admission. - Possible cellulitis. It may be stasis dermatitis from chronic venous congestion. See echocardiogram above. -US of right upper extremity was negative for DVT. -WBC 9, within normal limits - Streptozyme and MRSA screen negative -Infectious disease consulted. His time and recommendations are appreciated. -Ceftriaxone discontinued yesterday -Continue to monitor 9. Hyperkalemia, acute. Present on admission. Improved. -Possibly related to acute kidney injury and metabolic acidosis -Patient received Kayexalate and Lasix in the ED -Follow with CMP 10. Coronary artery disease, chronic. Present on admission. -Troponin elevated but given SHMUEL and elevated BNP, it is likely from demand ischemia. Echocardiogram shows severe pulmonary hypertension. -Continue clopidogrel -Stopped aspirin today as pt reports not taking this at home 11. Acute stress reaction. Present on admission. Improved -Patient denies current suicidal ideation -Psychiatry consulted and their time and recommendations are appreciated. 12. Gastroesophageal reflux disease, chronic. Present on admission. -Continued home famotidine 13. Diabetes mellitus type II, diet controlled, chronic. Present on admission. -Sliding insulin scale -HgbA1c 7.1% Patient Status: Patient is admitted under inpatient status with expected length of stay greater than 2 midnights due to severity of presenting symptoms, risk of adverse event, and complexity of treatment plan. VTE Prophylaxis: Other (Heparin gtt) Resuscitation Status: Limited Interventions (DNI) Limited Interventions: Compressions, Cardioversion/Defibrillation, BiPAP, Medications and IV Fluid Time spent 30 min Attending Statement Patient seen and examined with house staff. Agree with all attached documentation. Valencia Jamison DO Jan 15, 2017 18:15 Fan Palomares MD Jan 16, 2017 08:09
[2017-01-15] MEDS: cefTRIAXone Inj 2,000 MG in Dextrose 5% Minibag Plus 50 ML IV SCH (20:29)
[2017-01-16] VITALS (8 sets, daily range): BP systolic 144–165; BP diastolic 58–69; PULSE 40–60; RESP 16–22; O2SAT 88–95
[2017-01-16 04:54] LABS: BASOPHILS % (AUTO) 0.9 % (0-3); EOSINOPHILS % (AUTO) 1.6 % (0-5); MONOCYTES % (AUTO) 16.5 % (4-12); Mean Corpuscular Hemoglobin 29.4 pg (27.0-35.0); Mean Corpuscular Volume 86.5 fL (81-100); NEUTROPHILS % (AUTO) 67.8 % (40-74); Platelet Count 220 bil/L (150-400)
[2017-01-16] MEDS: Heparin 25K Unit/500mL 0.45 NS 25,000 UNIT in IV Premix 1 EACH IV SCH (06:35)
--- NOTE | 2017-01-16 06:40 | NUR ---
Activities Pt is to BR with assistance from spouse. Pt or spouse will not use call light for assistance. Spouse refused to utilize bed alarm or Feli alarm for safety. Risks and benefits explained to pt and spouse and they verbalize understanding. Per NOC DO pacemaker scheduled for tomorrow 01/17/2017. Heparin infusing and managed per DVT protocol. No overt complications noted.
[2017-01-16] MEDS: Insulin LISPRO 300 Unit/3 mL Inj SUBQ SCH ×4 (08:00→19:26)
[2017-01-16] MEDS: Furosemide 10 mg/mL 4 mL Inj IVPUSH SCH ×2 (08:27→19:25)
[2017-01-16] MEDS: Isosorbide Dinitrate 40 mg ER24 Tablet PO SCH ×2 (08:29→19:25)
--- NOTE | 2017-01-16 09:34 | PROG NOTE ---
[address] [address] PROGRESS NOTE PATIENT: ALISA TERRAZAS : 1935 MR#: [id number] ADMIT: 01/09/2017 JOB ID: [id number] DATE: 01/16/2017 INFECTIOUS DISEASE FOLLOW UP NOTE: REASON FOR FOLLOW UP: Lower extremity erythema and edema. INTERVAL HISTORY: Overnight, the patient has felt relatively stronger. He has been up and around a fair amount and he says though he feels a little shaky, he is stronger than he was when he came in. The erythema and tenderness in his legs has gradually diminished and is basically back to normal at this point. He does have some peeling skin on both lower extremities below the knee. He denies fevers, chills or sweats. He notes his breathing is unlabored. PHYSICAL EXAMINATION: Reveals an afebrile gentleman, temperature 36.8. Pulse is low range between 40 and 60. Respiratory rate 16, blood pressure 150/64. He is saturating 88%-95%. The patient's mental status is normal today. Lungs quite clear posteriorly. Cardiac tones bradycardic but regular. No new murmurs heard. Abdomen is benign. Lower extremities with diminished erythema bilaterally. There are some very superficial peeling of the skin over both lower extremities but not a full thickness peel as one would expect after a streptococcal infection. There is no ongoing evidence of infection in the lower extremities. LABORATORIES: Include white count 9900, platelet count 220,000. Creatinine is 1.88. LFTs are normal. Albumin 3.3. Procalcitonin 0.15 and that was done yesterday. Streptozyme negative. Anti DNase B pending. The blood cultures are negative. A chest x-ray done yesterday shows bibasilar airspace opacities, which could be CHF, aspiration or atelectasis. IMPRESSION: This patient is slowly improving with respect to multiple issues including his lower extremity edema and shortness of breath. I understand that cardiology plans to place a pacer which I think is very reasonable given his heart block and bradycardia. I see no bar to the pacer from an ID point of view, as it is uncertain he ever had an infection, but in any event, he has received several days of antibiotics and now looks quite uninfected. RECOMMENDATIONS: 1. No antibiotics. 2. No ID objection to pacer placement tomorrow. 3. Moisturizing cream should be applied to his lower extremities to diminish the risk of infection. 4. ID will go ahead and sign off at this time. Thank you for involving me in this interesting case.
--- NOTE | 2017-01-16 11:56 | PCM.PNMED ---
Subjective Date of Service Jan 16, 2017 Subjective feeling better today. has less LE edema. IV lasix was started yesterday. Exam Vital Signs Vital Sign - Last Date Time Temp Pulse Resp B/P Pulse Ox O2 Delivery O2 Flow Rate FiO2 01/16/17 08:00 36.8 40 16 150/64 88 Room Air 01/15/17 12:41 2.00 Intake and Output 01/15/17 01/15/17 01/16/17 Cumulative From/Thru 15:00 23:00 07:00 01/09/17 17:14 - 01/16/17 06:25 Intake Total 1350 ml 1259 ml 843 ml 33057 ml Output Total 400 ml 2176 ml Balance 1350 ml 859 ml 843 ml 19644 ml Intake Oral 860 ml 472 ml 7336 ml IV Total 1350 ml 399 ml 371 ml 7706 ml Output Urine Total 400 ml 2175 ml Estimated Blood Loss 1 ml # Voids 2 5 38 # Bowel Movements 2 1 10 Exam General: Alert, Cooperative Head: Normal Eyes: PERRLA, EOMI, Scleral Anicteric Nose: Mucous Membr Moist/[place] Mouth: Mucous Membr Moist/[place] Neck: Supple Chest & Lungs: coarse crackles bilaterally. No rhonchi, or wheezing Cardiovascular: Regular Rate/Rhythm Pulses: Normal carotid, radial, femoral, DP, PT Abdomen: Non-tender, Non-distended, Normoactive bowel tones, Soft Extremities: 2+ edema, peeling skin, erythematous left lower leg. Neurological: Grossly Neurologically Intact, Normal Speech Lab and Diagnostics Result Diagram: 01/16/1743401/16/17 043 X-Rays, CTs and MRIs PROCEDURE: US VEINOUS LEG DUPLEX UNILATERAL, LEFT IMPRESSION: Occlusive thrombus within the left superficial femoral vein, popliteal vein, and posterior tibial vein. These findings were discussed with Dr. Lopez at 7:45 PM by the regulatory technician. Approved by: Rosaura Angel M.D. on 01/09/2017 at 20:08 PROCEDURE: X-RAY CHEST ONE VIEW, PORTABLE IMPRESSION: 1. Low lung volumes and basilar opacities which may represent atelectasis, although aspiration/infection could also be considered in the differential. 2. Interstitial opacities and cardiomegaly suspicious for fluid overload. Approved by: Rosaura Angel M.D. on 01/09/2017 at 18:50 PROCEDURE: US RENAL SONOGRAM IMPRESSION: 1. Mild cortical thinning and increased renal cortical echogenicity bilaterally , compatible with medical renal disease. 2. No hydronephrosis. Approved by: Carissa Boyd M.D. on 01/10/2017 at 12:45 PROCEDURE: X-RAY CHEST ONE VIEW, PORTABLE IMPRESSION: 1. Mild edema decreased from prior exam and there has been interval increase in bibasilar airspace opacities consistent with patchy pulmonary edema, aspiration or pneumonia. 2. Small effusions redemonstrated. Approved by: Devora Ordoñez M.D. on 01/15/2017 at 16:35 Cardiac Echo Impressions Echocardiogram Report Interpretation Summary The left ventricle is mildly dilated. The ejection fraction is estimated to be 35-40%. There is severe hypokinesis of the mid and distal septum, and akinesis of the septum and posterior wall. The anterior wall is hypokinetic and in apical inferior wall is akinetic. 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 There is severe pulmonary hypertension. The right ventricular systolic pressure is estimated at 89 mmHg assuming a right atrial pressure of 15 mm Hg. The right ventricle is mildly dilated. The right ventricular systolic function is normal. There is moderate to severe mitral regurgitation. There is moderate biatrial enlargement. The patient was in third degree heart block during the exam. The heart rate ranged between 50-70 bpm during the study. No other echocardiographic abnormalities seen. Reading Physician:04: 50 PM Assessment & Plan 1. SHMUEL on CKD secondary to ATN and CRS. - improving. 2. Worsening SOB, suspected acute on chronic systolic CHF/right sided HF/pulm HTN. 3. left LE DVT, venous stasis and possible cellulitis-now off IV abx. 4. 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 5. HTN with hypertensive nephrosclerosis. 6. 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 plan: d/c NaHCO3. continue IV lasix 40 mg q12 hr. low salt diet 2g Na per day. pending pacemaker placement. VTE Prophylaxis: Other (Heparin gtt) Resuscitation Status: Limited Interventions (DNI) Limited Interventions: Compressions, Cardioversion/Defibrillation, BiPAP, Medications and IV Fluid Marisel Newman MD Jan 16, 2017 11:47
--- NOTE | 2017-01-16 13:07 | PCM.PNMED ---
Subjective Date of Service Jan 16, 2017 Subjective Mr. Walsh is an 81-year-old male with type 2 diabetes mellitus, hypertension and CAD with history of [place] presenting as a referral from [facility] for shortness of breath. Patient is accompanied by his at bedside. Overnight, patient had incidents of 2nd degree, type II AV heart block. Today, Mr. Walsh has dyspnea but it is slightly improved compared to yesterday. His legs continue to be swollen. He does not have chest pain. Exam Vital Signs Vital Sign - Last Date Time Temp Pulse Resp B/P Pulse Ox O2 Delivery O2 Flow Rate FiO2 01/16/17 12:50 36.7 60 18 151/64 93 Room Air 01/15/17 12:41 2.00 Intake and Output 01/15/17 01/15/17 01/16/17 Cumulative From/Thru 15:00 23:00 07:00 01/09/17 17:14 - 01/16/17 06:25 Intake Total 1350 ml 1259 ml 843 ml 85082 ml Output Total 400 ml 2176 ml Balance 1350 ml 859 ml 843 ml 49509 ml Intake Oral 860 ml 472 ml 7336 ml IV Total 1350 ml 399 ml 371 ml 7706 ml Output Urine Total 400 ml 2175 ml Estimated Blood Loss 1 ml # Voids 2 5 38 # Bowel Movements 2 1 10 Exam General: Elderly patient sitting upright in bed comfortably. No acute distress, well-developed, well-nourished, appropriately interactive. HEENT: Normocephalic, atraumatic. External ears without defect. Pupils equal, round, and reactive to light. Oral mucosa pink with dry mucosa. Cardiovascular: Regular rate and rhythm. No murmurs, rubs, or gallops appreciated Pulmonary: Fine crackles at the bases bilaterally with no wheezes or rhonchi. Increased respiratory effort with use of accessory muscles. Abdomen: Bowel tones present. Soft, nontender, nondistended. Extremities: Left lower extremity with edema, swelling and moderate erythema to 2/3 lower leg distal to knee, improving. Right lower extremity with edema, swelling and mild erythema 1/3 up lower leg distal to knee, improving. Onychomycosis of bilateral toenails. Erythema and edema of right upper arm. Neurological: Cranial nerves grossly intact. Normal muscle strength, tone, and bulk. Psychiatric: Normal mood and affect. Alert and oriented to person, place, and time. IVs and Medications Medications Reviewed: Medications were reviewed in detail Lab and Diagnostics Result Diagram: 01/16/17 0435 01/16/17 0435 X-Rays, CTs and MRIs PROCEDURE: US VEINOUS LEG DUPLEX UNILATERAL, LEFT IMPRESSION: Occlusive thrombus within the left superficial femoral vein, popliteal vein, and posterior tibial vein. These findings were discussed with Dr. Lopez at 7:45 PM by the x ray service technician. Approved by: Rosaura Angel M.D. on 01/09/2017 at 20:08 PROCEDURE: X-RAY CHEST ONE VIEW, PORTABLE IMPRESSION: 1. Low lung volumes and basilar opacities which may represent atelectasis, although aspiration/infection could also be considered in the differential. 2. Interstitial opacities and cardiomegaly suspicious for fluid overload. Approved by: Rosaura Angel M.D. on 01/09/2017 at 18:50 PROCEDURE: US RENAL SONOGRAM IMPRESSION: 1. Mild cortical thinning and increased renal cortical echogenicity bilaterally , compatible with medical renal disease. 2. No hydronephrosis. Approved by: Carissa Boyd M.D. on 01/10/2017 at 12:45 PROCEDURE: X-RAY CHEST ONE VIEW, PORTABLE IMPRESSION: 1. Mild edema decreased from prior exam and there has been interval increase in bibasilar airspace opacities consistent with patchy pulmonary edema, aspiration or pneumonia. 2. Small effusions redemonstrated. Approved by: Devora Ordoñez M.D. on 01/15/2017 at 16:35 Cardiac Echo Impressions Echocardiogram Report Interpretation Summary The left ventricle is mildly dilated. The ejection fraction is estimated to be 35-40%. There is severe hypokinesis of the mid and distal septum, and akinesis of the septum and posterior wall. The anterior wall is hypokinetic and in apical inferior wall is akinetic. 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 There is severe pulmonary hypertension. The right ventricular systolic pressure is estimated at 89 mmHg assuming a right atrial pressure of 15 mm Hg. The right ventricle is mildly dilated. The right ventricular systolic function is normal. There is moderate to severe mitral regurgitation. There is moderate biatrial enlargement. The patient was in third degree heart block during the exam. The heart rate ranged between 50-70 bpm during the study. No other echocardiographic abnormalities seen. Reading Physician:04: 50 PM Assessment & Plan 1. 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 Unknown acuity. Present on admission. Active. -Pacemaker placement scheduled for Sunday 2. Left lower extremity DVT, acute. Present on admission. Active. -Doppler US showed an occlusive thrombus within the left superficial femoral vein, popliteal vein, and posterior tibial vein. -Heparin gtt -Stopped heparin and started patient on Eliquis today after discussing with Dr. Leiva -He will need to be on Eliquis 10 mg BID for 7 days and then Eliquis 5 mg BID there after 3. Acute on chronic systolic congestive heart failure exacerbation. Present on admission. Active -Chest x-ray with findings of fluid overload and repeat chest x-ray today shows bibasilar airspace opacities. Clinically, patient with lower extremity edema and mild JVD. -Echocardiogram showed EF of 35-40% and severe pulmonary hypertension -[place] 8784 [place] [address] -Pt lost 1 kg since yesterday -Continue Furosemide 40 mg IV BID -Monitor I/O and daily weights tomorrow 4. Possible pulmonary embolism. Present on admission. Active -Doppler of lower extremities shows left lower extremity DVT -Heparin gtt -V/Q scan as above, see #2 5. 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 Present on admission. Improving. -Renal tubular acidosis, type 4. Likely secondary to chronic kidney disease. Notes from his primary care physician report CKD stage 3. Prior BUN 34, creatinine 1.41 on 03/22/2016. In 2012, BUN 33, creatinine 1.52. -Lactic acid within normal limits, no ketones but protein in the urine -Follow with CMP -Nephrology consulted and following. Their time and recommendations are appreciated. -Discontinued sodium bicarbonate -Continue chlorthalidone 6. Acute kidney injury on chronic kidney disease. Present on admission. Improving. -Chronic component as patient has longstanding hypertension and see #5 above -Creatinine 1.70 initially, 1.88 today -Renal ultrasound shows mild cortical thinning and increased renal cortical echogenicity bilaterally -Avoid nephrotoxins -Hold home allopurinol for now. -Nephrology consulted and following as above. 7. Hypertension, chronic. Present on admission -Currently patient is hypertensive but improving -Isosorbide nitrate 40 mg twice a day resumed -Held patient's home ANDREW inhibitor due to acute kidney injury. -Avoiding beta blockers, CCB due to heart block -Furosemide 40 mg IV BID -Cardiology recommended hydralazine 50 mg every 8 hours for additional blood pressure control. -Chlorthalidone 25 mg once daily added to regimen 8. Bilateral lower leg and right upper extremity edema and erythema, acute. Present on admission. Improving. - Possible cellulitis. It may be stasis dermatitis from chronic venous congestion. See echocardiogram above. -US of right upper extremity was negative for DVT. -WBC 7.1, within normal limits - treptozyme and MRSA screen negative -Infectious disease consulted. His time and recommendations are appreciated. -Ceftriaxone discontinued yesterday -Continue to monitor 9. Hyperkalemia, acute. Present on admission. Improved. -Possibly related to acute kidney injury and metabolic acidosis -Patient received Kayexalate and Lasix in the ED -Follow with CMP 10. Coronary artery disease, chronic. Present on admission. -Troponin elevated but given SHMUEL and elevated BNP, it is likely from demand ischemia. Echocardiogram shows severe pulmonary hypertension. -Continue clopidogrel -Stopped aspirin today as pt reports not taking this at home 11. Acute stress reaction. Present on admission. Improved -Patient denies current suicidal ideation -Psychiatry consulted and their time and recommendations were appreciated. 12. Gastroesophageal reflux disease, chronic. Present on admission. -Continued home famotidine 13. Diabetes mellitus type II, diet controlled, chronic. Present on admission. -Sliding insulin scale -HgbA1c 7.1% VTE Prophylaxis: Other (Heparin gtt) Resuscitation Status: Limited Interventions (DNI) Limited Interventions: Compressions, Cardioversion/Defibrillation, BiPAP, Medications and IV Fluid Time spent 45 minutes Attending Statement Patient seen and examined with house staff. Agree with all attached documentation. Valencia Jamison DO Jan 16, 2017 13:07 Fan Palomares MD Jan 24, 2017 07:30
--- NOTE | 2017-01-16 15:30 | NUR ---
Up in room/chair indep all day, at side. Refuses 02 despite teaching, RA sats 88-90%. Appears in no distress. Denies pain. SB on tele, HR 40-60s, asymptomatic. Heparin gtt per DVT protocol, will discontinue when Apixaban is available/given.
[2017-01-16] MEDS ORDERED: hydrOXYzine Pamoate 25 mg Capsule PO ONE (20:55)
[2017-01-17] VITALS (19 sets, daily range): BP systolic 124–173; BP diastolic 57–116; PULSE 42–111; RESP 18–28; O2SAT 88–98
--- NOTE | 2017-01-17 04:05 | NUR ---
Anxiety P: Pt very anxious and trembling, worrying about planned Pacemaker placement in the AM. I: MD notified and new order for PO Vistaril 25 mg ordered and administered. Vistaril 25mg po for anxiety with good relief of anxiety. Warm blankets applied for comfort. E: Anxiety moderately decreased, Pt stopped shaking and was able to fall asleep calmly.
[2017-01-17 05:32] LABS: BASOPHILS % (AUTO) 0.8 % (0-3); EOSINOPHILS % (AUTO) 1.8 % (0-5); MONOCYTES % (AUTO) 16.8 % (4-12); Mean Corpuscular Hemoglobin 29.5 pg (27.0-35.0); Mean Corpuscular Volume 86.8 fL (81-100); NEUTROPHILS % (AUTO) 65.1 % (40-74); Platelet Count 181 bil/L (150-400)
[2017-01-17] MEDS ORDERED: hydrOXYzine Pamoate 25 mg Capsule PO ONE (06:50)
[2017-01-17] MEDS: Insulin LISPRO 300 Unit/3 mL Inj SUBQ SCH ×4 (08:00→21:43)
[2017-01-17] MEDS: Isosorbide Dinitrate 40 mg ER24 Tablet PO SCH ×2 (08:39→21:43)
[2017-01-17] MEDS: Furosemide 10 mg/mL 4 mL Inj IVPUSH SCH ×2 (08:40→20:30)
[2017-01-17] MEDS ORDERED: EPHEDrine/NS 5 mg/mL 5 mL Syringe ONE (11:17)
[2017-01-17] MEDS ORDERED: fentaNYL-PF 50 mCg/mL 2 mL Inj ONE (11:17)
--- NOTE | 2017-01-17 12:06 | PCM.PNMED ---
Subjective Date of Service Jan 17, 2017 Subjective He again has SOB but LE swelling has improved. Anxious about pacemaker placement. He wants some ointment to apply on his legs. Exam Vital Signs Vital Sign - Last Date Time Temp Pulse Resp B/P Pulse Ox O2 Delivery O2 Flow Rate FiO2 01/17/17 11:49 36.6 53 18 163/69 96 Nasal Cannula 2.00 Intake and Output 01/16/17 01/16/17 01/17/17 Cumulative From/Thru 15:00 23:00 07:00 01/09/17 17:14 - 01/17/17 05:02 Intake Total 711 ml 320 ml 22893 ml Output Total 700 ml 2 ml 2878 ml Balance 11 ml 318 ml 11393 ml Intake Oral 470 ml 320 ml 8126 ml IV Total 241 ml 7947 ml Output Urine Total 700 ml 2 ml 2877 ml Estimated Blood Loss 1 ml # Voids 38 # Bowel Movements 3 0 13 Exam General: Alert, Cooperative, anxious Head: Normal Eyes: PERRLA, EOMI, Scleral Anicteric Nose: Mucous Membr Moist/[place] Mouth: Mucous Membr Moist/[place] Neck: Supple, (+) JVD. Chest & Lungs: coarse crackles bilaterally. exp wheezes. tachypneic. Cardiovascular: Regular Rate/Rhythm Pulses: Normal carotid, radial, femoral, DP, PT Abdomen: Non-tender, Non-distended, Normoactive bowel tones, Soft Extremities: 1+ edema, peeling skin, erythematous LE left > right. Neurological: Grossly Neurologically Intact, Normal Speech Lab and Diagnostics Result Diagram: 01/17/17 0520 01/17/17 0520 X-Rays, CTs and MRIs PROCEDURE: US VEINOUS LEG DUPLEX UNILATERAL, LEFT IMPRESSION: Occlusive thrombus within the left superficial femoral vein, popliteal vein, and posterior tibial vein. These findings were discussed with Dr. Lopez at 7:45 PM by the radiation control technician. Approved by: Rosaura Angel M.D. on 01/09/2017 at 20:08 PROCEDURE: X-RAY CHEST ONE VIEW, PORTABLE IMPRESSION: 1. Low lung volumes and basilar opacities which may represent atelectasis, although aspiration/infection could also be considered in the differential. 2. Interstitial opacities and cardiomegaly suspicious for fluid overload. Approved by: Rosaura Angel M.D. on 01/09/2017 at 18:50 PROCEDURE: US RENAL SONOGRAM IMPRESSION: 1. Mild cortical thinning and increased renal cortical echogenicity bilaterally , compatible with medical renal disease. 2. No hydronephrosis. Approved by: Carissa Boyd M.D. on 01/10/2017 at 12:45 PROCEDURE: X-RAY CHEST ONE VIEW, PORTABLE IMPRESSION: 1. Mild edema decreased from prior exam and there has been interval increase in bibasilar airspace opacities consistent with patchy pulmonary edema, aspiration or pneumonia. 2. Small effusions redemonstrated. Approved by: Devora Ordoñez M.D. on 01/15/2017 at 16:35 Cardiac Echo Impressions Echocardiogram Report Interpretation Summary The left ventricle is mildly dilated. The ejection fraction is estimated to be 35-40%. There is severe hypokinesis of the mid and distal septum, and akinesis of the septum and posterior wall. The anterior wall is hypokinetic and in apical inferior wall is akinetic. 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 There is severe pulmonary hypertension. The right ventricular systolic pressure is estimated at 89 mmHg assuming a right atrial pressure of 15 mm Hg. The right ventricle is mildly dilated. The right ventricular systolic function is normal. There is moderate to severe mitral regurgitation. There is moderate biatrial enlargement. The patient was in third degree heart block during the exam. The heart rate ranged between 50-70 bpm during the study. No other echocardiographic abnormalities seen. Reading Physician:04: 50 PM Assessment & Plan 1. SHMUEL on CKD secondary to ATN and CRS. 2. Worsening SOB, suspected acute on chronic systolic CHF/right sided HF/pulm HTN. 3. left LE DVT and venous stasis 4. Complete AV block. 5. HTN with hypertensive nephrosclerosis. 6. 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 plan: continue IV lasix 40 mg q12 hr. low salt diet, 2g Na per day. pending pacemaker placement. VTE Prophylaxis: Other (Heparin gtt) Resuscitation Status: Limited Interventions (DNI) Limited Interventions: Compressions, Cardioversion/Defibrillation, BiPAP, Medications and IV Fluid Marisel Newman MD Jan 17, 2017 12:06
--- NOTE | 2017-01-17 13:12 | PCM.HPANE ---
Patient Data Date of Service: Jan 17, 2017 Surgeon Admitting Provider:Karo Dill MD Attending Provider:Karo Dill MD Primary Care Physician:Other,Physician Other Provider:Basim French Reason for Visit Dvt, Probable Pe, Chf, Renal Failure Ht/WT & BMI Height (Feet): 5 Height (Inches): 11.00 Weight (Kilograms): 88.900 Body Mass Index 25.83 Allergies Coded Allergies: Penicillins (Verified Allergy, Intermediate, rash, 01/09/17) latex (Verified Allergy, Intermediate, rash, 01/09/17) Past Anesthesia History Anesthesia History: Denies:: Anesthesia Reactions Diabetes History Hx Diabetes?: Yes (managed by diet) Current Bedside Blood Glucose: 131 MRSA MRSA: No Medications Blood Thinner: Aspirin, Plavix Hypertension Medication: Yes Previous Beta Norman Dose >24: Dose Not Given, Contraindicated Beta Norman Contraindicated: Pulse <70 bpm, Symptoms of CHF Present Reported Medications Isosorbide Dinitrate ER (Dilatrate SR)40 Mg [id number] Mg PO BID 01/10/17 Furosemide (Lasix)40 Mg Sinbwl53 Mg PO DAILY 30 Days Ref 0 01/10/17 Aspirin 325 Mg [id number] Mg PO #1 BOTTLE 01/10/17 Benazepril (Lotensin)20 Mg [id number] Mg PO 01/10/17 Allopurinol 300 Mg [id number] Mg PO DAILY Ref 0 01/10/17 Clopidogrel Bisulfate (Plavix)75 Mg Mocggy89 Mg PO DAILY 30 Days Ref 0 01/10/17 Ranitidine (Zantac)150 Mg [id number] Mg PO BID 01/10/17 History HEENT History: Denies:: Difficult Intubation Teeth Condition: Missing Teeth Hx of Heart Problems?: Yes Cardiovascular History: Positive for:: Congestive Heart Failure (being diuresed, EF 3-40% on last echo) Coronary Artery Disease (h/o PR 40 years prior) Hypertension Irregular Heartbeat (2nd degree type 2 heart block) Hx of Respiratory Problem?: Yes Respiratory History: Positive for:: Dyspnea Oxygen Administration (on 1L nasal cannula for comfort) Pneumonia Other Resp Pertinent History: severe pulmonary hypertension on last echo Hx Neurologic Problems?: Yes Neurological History: Positive for:: TIA (27 years ago) Hx of GI Problems?: Yes Gastrointestinal History: Positive for:: Heartburn Hx of Problems?: Yes (chronic kidney disease) Hx Musculoskeletal Problems?: No Hx of Psycho/Social Problems?: No Hx Surgeries?: No Hx Any Other Health Problems?: No Other History: Denies:: Cancer Hospitalization Thyroid Disease History Blood Transfusions: Denies:: Accept Blood Products? Blood Transfuse Reaction Blood Transfusions Hx Diabetes: Yes (managed by diet)Bedside Blood Glucose: 131 Occupation: Retired Hx Alcohol Use: NoHx Substance Use: No Smoking Status: Unknown if Ever Smoker Have You Smoked inLast 12 mo: No Stop/Bang Treated for Sleep Apnea?: No Do You Have a CPAP Machine?: No S-Snoring: Do You Snore Loudly: Yes T-Tired: feel tired, fatigued: Yes O-Obsered: Observed not breath: No P-Blood Pressure: treated: Yes B- Body Mass Index > 35 kg/m2: No A- Age over 50: Yes N- Neck Large Circumference: No G- Gender Male: Yes GLEN Risk Assessment: High Risk, =/>3 Yes GLEN Category 2: Yes Risk Assessment Category Category 1A: Patient has history of documented sleep apnea, and HAS NOT received any narcotic, sedative or anesthesia administration during this stay. Category 1B: Patient has history of documented sleep apnea, and HAS received any narcotic , sedative or anesthesia administration during this stay Category 2: Patient has SUSPECTED Obstructive Sleep Apnea, and HAS received any narcotic , sedative or anesthesia administration during this stay. Category 3: Patient has SUSPECTED Obstructive Sleep Apnea and HAS NOT received narcotic, sedative or anesthesia administration during this stay. Category 4: Outpatient in Procedural Areas with known sleep apnea or who screen positive for High Risk via the STOP/BANG questionnaire. Exam Exam Vital Signs Vital Signs Date Time Temp Pulse Resp B/P Pulse Ox O2 Delivery O2 Flow Rate FiO2 01/17/17 11:49 36.6 53 18 163/69 96 Nasal Cannula 2.00 01/17/17 11:15 50 01/17/17 08:35 36.4 50 26 131/80 93 Room Air General Appearance: Alert, Oriented X3, Cooperative, Mild Distress (anxious about procedure, prefers to sit upright) HEENT/AIRWAY: MP 2, Neck Movement (limited), Mouth Opening (normal) Lungs: Crackles (bibasilar) Heart: Other (regular, bradycardic, no obvious systolic murmur) Meds/Labs/Diagnostics Admission Meds Current Medications Apixaban (Eliquis) 10 mg BID PO Last administered on 01/16/17 16:37; Start at 15:00; Stop 01/23/17 at 08:31 Hydroxyzine Pamoate (Vistaril) 25 mg OT ONCE PO Last administered on 21:20; Start 01/16/17 at 20:55; Stop 01/16/17 at 20:56; Status DC Hydroxyzine Pamoate (Vistaril) 25 mg ONCE ONCE PO Last administered on 08:38; Start 01/17/17 at 06:50; Stop 01/17/17 at 07:23; Status DC Bedside Blood Glucose: 131 Labs Test 01/09/17 18:12 01/09/17 19:30 01/09/17 20:27 01/09/17 22:20 Prothrombin Time 11.9sec (8.1-12.5) Prothromb Time International Ratio 1.11ratio D-Dimer 4.1mg/L (<0.50) Lactic Acid Level 1.4mmol/L (0.4-2.0) Hold [place] Top Tube Received (Received) Urine Legionella pneumophilia Ag Negative (Negative) Hold Urine Received (Received) Hold Purple Top Tube Received (Received) Hold [place] Top Tube Received (Received) Streptozyme 41.3IU/mL (0.0-200.0) Anti-DNase B (Streptococcal) 204U/mL (0-120) Test 01/09/17 22:41 01/10/17 03:21 01/12/17 04:10 01/12/17 14:03 Urine Culture Reflexed Indicated Hemoglobin A1c 7.1% (4.8-5.6) Troponin T 0.133ug/L (0.0-0.011) Thyroid Stimulating Hormone (TSH) 1.150uIU/mL (0.450-4.500) Urine Color Straw (YELLOW) Urine Appearance Hazy (CLEAR,HAZY) Urine pH 5.0 (5.0-8.0) Urine Specific [place] 1.020 (1.003-1.035) Urine Protein Tracemg/dL (NEG,TRACE) Urine Glucose (UA) Negativemg/dL (NEGATIVE) Urine Ketones Negativemg/dL (NEGATIVE) Urine Occult Blood Negative (NEGATIVE) Urine Nitrite Negative (NEGATIVE) Urine Bilirubin Negative (NEGATIVE) Urine Urobilinogen Normalmg/dL (NORMAL) Urine Leukocyte Esterase Small (NEGATIVE) Urine RBC 0-2/hpf (0-2) Urine WBC 6-10/hpf (0-5) Urine Epithelial Cells Occasional/hpf (NONE-MOD) Urine Crystals None seen (NONE SEEN) Urine Bacteria Moderate/hpf (NONE-FEW) Urine Hyaline Casts Occasional/lpf (NONE) Urine Granular Casts None seen (NONE SEEN) Urine Waxy Casts None seen (NONE SEEN) Urine Red Blood Cell Casts None seen (NONE SEEN) Urine White Blood Cell Casts None seen (NONE SEEN) Urine Mucus None seen (None Seen) Urine Trichomonas None seen (NONE SEEN) Urine Yeast None (NONE SEEN) Urinalysis Comment None Urine Random Creatinine 118mg/dL (22-328) Urine Random Total Protein 27mg/dL (0-15) Urine Protein/Creatinine Ratio 0.23 Test 01/13/17 05:10 01/14/17 05:15 01/15/17 02:00 01/17/17 05:20 Uric Acid 5.4mg/dL (2.6-7.2) Magnesium Level 1.9mg/dL (1.6-2.6) Procalcitonin 0.15ng/mL (0.00-0.08) Pro-B-Type Natriuretic Peptide 33355nq/mL (0-486) White Blood Count 8.9th/mm3 (3.8-10.1) Red Blood Count 4.47mil/mm3 (4.40-5.80) Hemoglobin 13.2g/dL (13.8-17.2) Hematocrit 38.8% (41.0-50.0) Mean Corpuscular Volume 86.8fL (81-100) Mean Corpuscular Hemoglobin 29.5pg (27.0-35.0) Mean Corpuscular Hemoglobin Concent 34.0% (32.0-37.0) Red Cell Distribution Width 18.6% (12.3-15.4) Platelet Count 181bil/L (150-400) Neutrophils (%) (Auto) 65.1% (40-74) Lymphocytes (%) (Auto) 15.3% (14-46) Monocytes (%) (Auto) 16.8% (4-12) Eosinophils (%) (Auto) 1.8% (0-5) Basophils (%) (Auto) 0.8% (0-3) Activated Partial Thromboplast Time 32.7sec (22.8-33.0) Sodium Level 137mEq/L (134-144) Potassium Level 4.1mEq/L (3.5-5.2) Chloride Level 99mEq/L (97-108) Carbon Dioxide Level 22mmol/L (18-29) Blood Urea Nitrogen 45mg/dL (8-27) Creatinine 2.30mg/dL (0.76-1.27) Estimat Glomerular Filtration Rate 29mL/min (>59) Glucose Level 149mg/dL (60-99) Calcium Level 8.4mg/dL (8.5-10.1) Total Bilirubin 0.5mg/dL (0.0-1.2) Aspartate Amino Transf (AST/SGOT) 43U/L (0-50) Alanine Aminotransferase (ALT/SGPT) 28U/L (0-44) Alkaline Phosphatase 41U/L (25-160) Total Protein 5.8g/dL (6.4-8.4) Albumin 3.2g/dL (3.4-5.0) Plan Impression Patient chart reviewed, patient interviewed and anesthestic plan with risks, benefits, and alternatives discussed, and informed consent obtained. NPO Status: Appropriate ASA Physical Status: ASA4 Life Threatening (2nd degree type 2 heart block, CHF , DVT, CKD) Anesthetic Plan: MAC (with light IV sedation) Bene/Risks/Altern/Consents: Yes HP Complete Prior to Induction: Yes Jayjay Soliman MD Jan 17, 2017 13:12
[2017-01-17] MEDS ORDERED: 0.9% Sodium Chloride 1,000 ML ONE ×2 (14:02→14:38)
--- NOTE | 2017-01-17 14:02 | PROG NOTE ---
[address] [address] PROGRESS NOTE PATIENT: ALISA TERRAZAS : 1935 MR#: [id number] ADMIT: 01/09/2017 JOB ID: [id number] DATE: 01/17/2017 CHIEF COMPLAINT: "We were really upset, he was pretty afraid." This per patient's 's report. HISTORY OF PRESENT ILLNESS: As stated above, the patient reportedly had not been interviewed by Dr. Pringle last week after a significant incident where he had been holding a pistol and was transferred from the [facility]. There was significant concern of imminency of danger and the patient essentially showed no evidence of significant suicidal or homicidal variation. During his course of hospitalization, the patient has displayed characteristic features of mild paranoia, suspicious behavior. 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 In meeting with the couple, they did openly identify that there was no significant intent or plan of imminent danger. The has since removed the weapon from the patient's possession and actually placed in a gun safe in the home. She did agree to actually change the combination stating that she realizes that he may be out of it after the surgical procedure including putting a cardiac pacer later on this afternoon. OBJECTIVE: On mental status examination, the patient was cooperative, polite. He maintained good eye contact throughout. He openly identified significant previous difficulties with fears identifying that he has lived a life in various nations including [place] and that he made it through the war. His speech was of normal tone, frequency and volume. His mood is mildly anxious. His affect is congruent. His thought process showed some evidence of delayed response, paucity. He appeared to be somewhat loose and disorganized at times but was redirectable. Thought content: There was no evidence of current suicidal or homicidal nature. No evidence of hallucinations. There is a mild degree of paranoia and suspiciousness in both the patient and . He was alert, oriented to person, place, time, situation. Attention and concentration fleeting. Insight and judgment are fair. DIAGNOSTIC IMPRESSION: AXIS I 1. 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 2. Cognitive disorder, not otherwise specified. AXIS II Deferred. AXIS III Deferred to medical team. AXIS IV Stressors are noted for life transitions, ongoing complex medical care. AXIS V Global assessment of functioning current 55. PLANS: 1. Recommendations for okay to a discharge at this time. I do not see any reason the patient would meet detainment criteria. I do not see any evidence of imminent danger or further perspectives of grave disability. 2. Recommendations for the to change the combination to the gun safe in her possession. Both she and additional parties who were friends of the family agreed to confirm this upon the patient's discharge to the home environment.
[2017-01-17] MEDS ORDERED: Vancomycin 1,000mg/200 mL NS IV ONE (14:06)
[2017-01-17] MEDS ORDERED: 0.9% Sodium Chloride 250 ML ONE (14:12)
[2017-01-17] MEDS ORDERED: Vancomycin 1,000 mg Inj ONE (14:12)
--- NOTE | 2017-01-17 14:12 | NUR ---
Off Unit Patient to starch factory laborer for pacemaker placement. Report given to Cira Uriostegui RN.
[2017-01-17] MEDS ORDERED: Bupivacaine-MPF 0.5% 30 mL Inj ONE (14:39)
[2017-01-17] MEDS ORDERED: Heparin 1,000 Unit/mL 10 mL Inj ONE (14:39)
[2017-01-17] MEDS ORDERED: 0.9% Sodium Chloride 1,000 ML IV SCH (15:57)
[2017-01-17] MEDS ORDERED: HYDROcodone-APAP 5-325 mg Tablet PO PRN (16:00)
--- NOTE | 2017-01-17 16:12 | NUR ---
spiritual care: follow up provided needle and thread to pt's per request for clothing repair. supportive listening. following
--- NOTE | 2017-01-17 16:30 | PROG NOTE ---
[address] [address] PROGRESS NOTE PATIENT: ALISA TERRAZAS : 1935 MR#: [id number] ADMIT: 01/09/2017 JOB ID: [id number] DATE: 01/17/2017 CARDIOLOGY PROGRESS NOTE: IDENTIFICATION AND INTERIM HISTORY: The patient is a pleasant 81-year-old gentleman without previous cardiac history admitted with lower extremity DVT, acute kidney injury, metabolic acidosis, and complete heart block. Echocardiography revealed an ejection fraction of 40% with wall motion abnormalities consistent with CAD. He also had high pulmonary artery pressures with an estimated PA systolic pressure of 89 mmHg. He was treated presumptively for pulmonary embolus along with a DVT and was treated for his acidemia. There was a question of cellulitis and ultimately he received a course of antibiotics and Dr. Bradshaw has determined that he is not at any increased risk of infection. Despite treatment of his acidemia and potential infection he continues to be in either Mobitz II or complete heart block. He is not on any exacerbating agents. Ischemic evaluation has been put on hold given his renal insufficiency. He has been chest pain free. I am asked to address his dysrhythmia. Review of EKG and telemetry reveals periods of complete heart block and periods of Mobitz II AV block. IMPRESSION AND RECOMMENDATION: The patient is a pleasant 81-year-old man with newly diagnosed moderate to severe cardiomyopathy, complete heart block, acidemia, and acute kidney injury. I recommended dual-chamber pacemaker implantation and subsequent evaluation for ischemia, potentially by stress testing. I discussed the dual-chamber pacemaker implant with him in detail, including risks and benefits. Ultimately, he wishes to proceed. Discussion was had in the presence of his . PLAN: Dual-chamber pacemaker implantation with subsequent ischemic evaluation as an outpatient. Thank you very much for allowing me to participate in the care of this patient. Please call with questions. I spent approximately 1 hour with this patient, coordinating his care and reviewing his chart. Greater than 50% of this time was spent in counseling.
--- NOTE | 2017-01-17 16:53 | PCM.ANEP1 ---
Post Anesthesia Phase 1 PACU Phase 1 Assessment Date of Service: Jan 17, 2017 Vital Signs Vital Signs Date Time Temp Pulse Resp B/P Pulse Ox O2 Delivery O2 Flow Rate FiO2 01/17/17 16:30 96 20 145/78 92 Nasal Cannula 3.00 01/17/17 16:27 96 20 142/77 88 Nasal Cannula 3.00 01/17/17 11:49 36.6 53 18 163/69 96 Nasal Cannula 2.00 01/17/17 11:15 50 Anesthetic Administered: MAC Level of Alertness: Awake, talking DENT's with Equal Strength: Yes Pain: Yes (dull, aching at incision site) Pain Scale Score: 2 Nausea or Vomiting: No Oxygen Delivery: Nasal Cannula Lungs: Crackles (bibasilar) Dermatome Level: Full Sensation Jayjay Soliman MD Jan 17, 2017 16:53
--- NOTE | 2017-01-17 17:13 | NUR ---
Social Work Note: Continued Discharge Planning Data& Assessment: EMR reviewed. Pt had pacemaker placement today. Per Psych MD, pt is cleared to discharge home when medically ready and does not meet criteria for detainment. Pt and pt has provided permission for SW to follow up with pt daughter. SW returned phone call from pt daughter Vanessa who is a MARKETING COPYWRITER and lives in [place]. Pt daughter repeated concerns about pt safety and any potentia suicidal ideation and pt's belief that his pacemaker is a tracking device per pt daughter. Pt daughter explained "Im scared of pt being suicidal with the pacemaker, because now he's got the tracking device." Per Psych MD, pt has agreed to change the lock code for the gun safe at home, however, pt daughter is "afraid she will give it back to him." Pt daughter is interested in detainment for pt, SW explained to pt daughter that there is different detainment criteria in the state [facility] compared to in [place] and at this time, pt does not meet detainment criteria per Psych MD. Pt daughter confirmed understanding and also expressed interest in pt guns being "taken away." SW suggested that pt daughter express her concerns to pt (her mother) and request they surrender the guns. Pt daughter frustrated with pt and pt 's declining of various resources that have been offered including screening for Medicaid and Home Health Services. SW explained that we are unable to force pt to accept services and resources, but we will encourage them to take advantage of them prior to DC. SW clarified that once pt leaves the hospital, we are unable to follow pt in the community. Pt daughter communicated understanding and denied any other needs at this time. Pt daughter stated she plans to travel to [place] to visit and check in on her parents in the next month. Pt and pt also has strong community support from friends and worship members who have been at bedside. Pt daughter is requesting that pt be seen again by psychiatry after pacemaker placement to assess mentation, SI and paranoia. SW to continue to engage pt and pt in conversations regarding discharge planning and home health services for RN, PT and possible SW. SW to consult Psych MD again if pt behavior and mentation changes after pacemaker placement. SW to continue to follow. Plan: Pt is not medically ready for discharge at this time. SW to continue to engage pt and pt in conversations regarding discharge planning and home health services for RN, PT and possible SW. SW to consult Psych MD again if pt behavior and mentation changes after pacemaker placement. SW to continue to follow. ELEAZAR Hernandez
--- NOTE | 2017-01-17 17:27 | PCM.ANEP2 ---
Post Anesthesia Evaluation ASA/CMS Post Anesthesia Date of Service: Jan 17, 2017 VS in Patient's Normal Range?: Yes Resp Stable; Airway Patent?: Yes CV Function & Hydration Stable: Yes Mental Status Recovered?: Yes Pain control Satisfactory?: Yes N/V Control Satisfactory?: Yes Jayjay Soliman MD Jan 17, 2017 17:27
--- NOTE | 2017-01-17 17:28 | DRSVH ---
PROCEDURE: X-RAY CHEST ONE VIEW, PORTABLE ([id number]) INDICATIONS: For new leads placed TECHNIQUE: One view of the chest was acquired. COMPARISON: [facility], CR, XR CHEST 1VW (PORTABLE), 01/15/2017, 10:23. [facility], CR, XR CHEST 1VW (PORTABLE), 01/09/2017, 18:15. FINDINGS: Surgical changes and devices: Pacemaker device with dual chamber leads place, with tips in normal pos ition. Lungs and pleura: No change in small subpulmonic right pleural effusion, and no pneumothorax. Lungs are moderately edematous. Mediastinum: Mediastinal contours appear normal. Heart size is at the upper limits of normal. Bones and chest wall: No suspicious bony lesions. Overlying soft tissues appear unremarkable. IMPRESSION: Dual-chamber cardiac pacemaking device leads in normal position, generalized moderate pul monary edema, small subpulmonic right pleural effusion is again seen. Dictated by: Ermias Major M.D. on 01/17/2017 at 17:25 Approved by: Ermias Major M.D. on 01/17/2017 at 17:26
--- NOTE | 2017-01-17 18:09 | NUR ---
Pt post pacemaker implant. Pt is tachycardic with paced rate in 100-110's, bp 173/93 with SaO2 91% on 5l NC. Pt's RR is 24-28 and has bilateral wheezing t/o. Pt having c/o incisional pain at pm site. Dr. Jamison called, IV lasix 40mg given.
[2017-01-17] MEDS ORDERED: Albuterol 2.5 mg/3 mL Inhalation Solution NEB ONE (18:20)
[2017-01-17] MEDS ORDERED: MeTOProlol 1 mg/mL 5 mL Inj ONE (18:28)
[2017-01-17] MEDS ORDERED: Albuterol-Ipratropium 3 mL Inhalation Solution NEB PRN (18:30)
[2017-01-17] MEDS ORDERED: MeTOProlol 1 mg/mL 5 mL Inj IVPUSH ONE (18:35)
[2017-01-17] MEDS ORDERED: Furosemide 10 mg/mL 4 mL Inj IVPUSH ONE (18:35)
[2017-01-17] MEDS ORDERED: Nitroglycerin 2% 1 Gm Ointment TOPICAL ONE (18:35)
[2017-01-17] MEDS ORDERED: Nitroglycerin 50,000 mcg/250 mL D5W Premix IV ONE (19:13)
--- NOTE | 2017-01-17 19:53 | NUR ---
Pt transferred to CCU room 2015. Pt given additional 40mg IV Lasix, Metoprolol 5mg IV, Duoneb, and started on NTG gtt at 10mcg/min. Pt's heart rate down to 90's, BP 140'/80's, and SaO2 93% on 6l NC. Pt stated he was starting to feel better, breathing easier at time of transfer. Pt's lung sounds remained with bilat wheezes t/o. Pt diuresed 50ml juana urine at time of transfer. Report and pt handoff given to Abu RN.
--- NOTE | 2017-01-17 20:09 | OP ---
[address] [address] OPERATIVE REPORT PATIENT: ALISA TERRAZAS : 1935 MR#: [id number] ADMIT: 01/09/2017 JOB ID: [id number] CORRECTED REPORT: DATE OF SURGERY: 01/17/2017 PREOPERATIVE DIAGNOSIS(ES): Complete heart block. POSTOPERATIVE DIAGNOSIS(ES): Complete heart block. PROCEDURES PERFORMED: 1. Dual-chamber pacemaker implantation. 2. Left upper extremity venogram. 3. Fluoroscopy. SURGEON: Trent Leiva MD, electrophysiology. PRODUCT MARKETING ANALYST: Matilda Hua. IMPLANTED DEVICES: 1. [employer] pulse generator, model PM [id number]. 2. Right atrial lead [employer], LPA 1200M, 52 cm serial #[id number]. 3. RV lead [employer], LP 1200M, 58 cm, serial #[id number]. ANESTHESIA: Monitored anesthesia care was provided by the anesthesiology service. INDICATION: The patient is a pleasant 81-year-old man with complete heart block. After discussion of risks and benefits of pacemaker implantation, he opted to proceed. PROCEDURAL DESCRIPTION: Following informed consent, the patient was taken to the EP laboratory in a fasting nonsedated state where he was prepped and draped in usual sterile fashion. The left infraclavicular region was infiltrated with 40 cc of a 50/50 mixture of bupivacaine and lidocaine. Once adequate anesthesia had been achieved, a 3 cm transverse incision was performed 2 cm below the clavicle. Dissection was carried down to the pectoralis fascia. The pocket was then fashioned using a combination of electrocautery and blunt dissection. Once the images had been achieved, attempts to access the left axillary vein with micropuncture were unsuccessful. A left upper extremity venogram was performed and under radiographic guidance the vessel was cannulated twice with a micropuncture needle to deploy two 0.035, 3 mm J guidewires. Over the first of these, an 8-Marshallese tear-away sheath was advanced. Once the guidewire was removed, an active fixation wire was advanced to the RV outflow tract and ultimately RV apex. Mapping was undertaken and ultimately low R-waves were seen throughout. The lead was affixed in position using associated active fixation screw. The lead was connected to an external analyzer and demonstrated appropriately sensed R waves, impedance, capture threshold and was checked to 10 V and there was no evidence of diaphragmatic stimulation. Attention was now paid to placement of the right atrial lead. Over the other previously deployed J guidewire, another 8-Marshallese tear-away sheath was advanced. Once the guidewire was removed, an active fixation wire was noted to be at the right atrial appendage. It was affixed in position using active fixation suture. It was connected to the external analyzer and demonstrated appropriately sensed P waves, impedance, and capture threshold. Lead was checked to 10 V and there was no evidence of diaphragmatic stimulation. Once the position and redundancy of both leads was confirmed with multiple fluoroscopic views, the leads were anchored to the prepectoralis fascia using their associated anchoring sleeves and 2-0 sutures. The pocket was then copiously irrigated with antibiotic solution. The leads were connected to a generator. The generator was placed in the pocket and was affixed to the floor of the pocket using 1-0 Ti-Cron suture. The incision was then closed with running layers of absorbable suture. The wound was dressed with skin adhesive and a small dressing at the end of procedure. The needle, sponge, and instrument counts were all correct. COMPLICATIONS: None. ESTIMATED BLOOD LOSS: 10 cc. DATE OF SURGERY: 1. Right atrial lead 4.2 mV, 530 ohms, 0.75 V at 0.4 msec. 2. RV lead 3.9 mV, 590 ohms, 0.75 V at 0.4 msec. FINAL PROGRAM PARAMETERS: DDD 60-130 beats per minute. IMPRESSION: Successful dual-chamber pacemaker implantation. PLAN: 1. Stat portable chest x-ray. 2. PA and lateral chest x-ray in the morning. 3. Device interrogation. 4. IV vancomycin through tomorrow. 5. Doxycycline 100 mg p.o. daily x7 days starting next week. 6. Wound check in one week. ATTENDING STATEMENT: Trent Leiva MD, pen or pencil assembly machine operator was present and supervised/performed all aspects of this procedure. Corrected by DALY 01/18/17 at 2:11pm Account number.
--- NOTE | 2017-01-17 20:53 | PCM.PNMED ---
Subjective Date of Service Jan 17, 2017 Subjective Mr. Walsh is an 81-year-old male with type 2 diabetes mellitus, hypertension and CAD with history of OH presenting as a referral from [facility] for shortness of breath. Patient is accompanied by his at bedside. Overnight: He was anxious about procedure today, which was relieved after one dose of hydroxyzine. This morning, Mr. Walsh reports that he continues to have trouble breathing. His legs are dry. He does not have leg pain or chest pain. He is anxious about the upcoming procedure. After pacemaker placement, patient was tachypneic with decreased oxygen saturation, tachycardia, and hypertension. Chest x-ray after pacemaker placement showed moderate pulmonary edema. On exam, there were diffuse inspiratory and expiratory wheezes with decreased air movement. After a DuoNeb treatment and with 5 L oxygen via nasal cannula, there was mild improvement of oxygen saturation to 93%. He was also given metoprolol 5 mg IV, 1 inch of nitroglycerin paste, and 80 furosemide IV. His heart rate decreased to 90s. He then had increased air movement on exam. He is now on BiPAP and a nitroglycerin drip. He reports feeling a little better. Exam Vital Signs Vital Sign - Last Date Time Temp Pulse Resp B/P Pulse Ox O2 Delivery O2 Flow Rate FiO2 01/17/17 08:35 36.4 50 26 131/80 93 Room Air 01/15/17 12:41 2.00 Intake and Output 01/16/17 01/16/17 01/17/17 Cumulative From/Thru 15:00 23:00 07:00 01/09/17 17:14 - 01/17/17 05:02 Intake Total 711 ml 320 ml 78519 ml Output Total 700 ml 2 ml 2878 ml Balance 11 ml 318 ml 25261 ml Intake Oral 470 ml 320 ml 8126 ml IV Total 241 ml 7947 ml Output Urine Total 700 ml 2 ml 2877 ml Estimated Blood Loss 1 ml # Voids 38 # Bowel Movements 3 0 13 Exam General: Elderly patient sitting upright in bed comfortably. No acute distress, well-developed, well-nourished, appropriately interactive. HEENT: Normocephalic, atraumatic. External ears without defect. Pupils equal, round, and reactive to light. Oral mucosa pink with dry mucosa. Cardiovascular: Regular rate and rhythm. No murmurs, rubs, or gallops appreciated Pulmonary: Fine crackles at the bases bilaterally with no wheezes or rhonchi. Increased respiratory effort with use of accessory muscles. Abdomen: Bowel tones present. Soft, nontender, nondistended. Extremities: Left lower extremity with edema, swelling and moderate erythema to 2/3 lower leg distal to knee, improving. Right lower extremity with edema, swelling and mild erythema 1/3 up lower leg distal to knee, improving. Onychomycosis of bilateral toenails. Erythema and edema of right upper arm. Neurological: Cranial nerves grossly intact. Normal muscle strength, tone, and bulk. Psychiatric: Normal mood and affect. Alert and oriented to person, place, and time. IVs and Medications Medications Reviewed: Medications were reviewed in detail Lab and Diagnostics Result Diagram: 01/17/1751901/17/17519 X-Rays, CTs and MRIs PROCEDURE: US VEINOUS LEG DUPLEX UNILATERAL, LEFT IMPRESSION: Occlusive thrombus within the left superficial femoral vein, popliteal vein, and posterior tibial vein. These findings were discussed with Dr. Lopez at 7:45 PM by the electrical/instrument technician. Approved by: Rosaura Angel M.D. on 01/09/2017 at 20:08 PROCEDURE: X-RAY CHEST ONE VIEW, PORTABLE IMPRESSION: 1. Low lung volumes and basilar opacities which may represent atelectasis, although aspiration/infection could also be considered in the differential. 2. Interstitial opacities and cardiomegaly suspicious for fluid overload. Approved by: Rosaura Angel M.D. on 01/09/2017 at 18:50 PROCEDURE: US RENAL SONOGRAM IMPRESSION: 1. Mild cortical thinning and increased renal cortical echogenicity bilaterally , compatible with medical renal disease. 2. No hydronephrosis. Approved by: Carissa Boyd M.D. on 01/10/2017 at 12:45 PROCEDURE: X-RAY CHEST ONE VIEW, PORTABLE IMPRESSION: 1. Mild edema decreased from prior exam and there has been interval increase in bibasilar airspace opacities consistent with patchy pulmonary edema, aspiration or pneumonia. 2. Small effusions redemonstrated. Approved by: Devora Ordoñez M.D. on 01/15/2017 at 16:35 Cardiac Echo Impressions Echocardiogram Report Interpretation Summary The left ventricle is mildly dilated. The ejection fraction is estimated to be 35-40%. There is severe hypokinesis of the mid and distal septum, and akinesis of the septum and posterior wall. The anterior wall is hypokinetic and in apical inferior wall is akinetic. 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 There is severe pulmonary hypertension. The right ventricular systolic pressure is estimated at 89 mmHg assuming a right atrial pressure of 15 mm Hg. The right ventricle is mildly dilated. The right ventricular systolic function is normal. There is moderate to severe mitral regurgitation. There is moderate biatrial enlargement. The patient was in third degree heart block during the exam. The heart rate ranged between 50-70 bpm during the study. No other echocardiographic abnormalities seen. Reading Physician:04: 50 PM Assessment & Plan 1. 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 Unknown acuity. Present on admission. Active. -Pacemaker placement today 2. Acute on chronic systolic congestive heart failure exacerbation. Present on admission. Active -Chest x-ray with findings of fluid overload and repeat chest x-ray today shows bibasilar airspace opacities. Clinically, patient with lower extremity edema and mild JVD. He continues to have dyspnea. -Echocardiogram showed EF of 35-40% and severe pulmonary hypertension. -[place] 8784 [place] [address] -Continue Furosemide 40 mg IV BID -Monitor I/O and daily weights -Consider increasing furosemide if he continues to not have weight loss. -Acutely worsened after pacemaker placement -Nitroglycerin drip and patient is now on BiPAP -Patient has been transferred to the CCU 3. Left lower extremity DVT, acute. Present on admission. Active. -Doppler US showed an occlusive thrombus within the left superficial femoral vein, popliteal vein, and posterior tibial vein. -Heparin gtt discontinued -He will need to be on Eliquis 10 mg BID for 7 days and then Eliquis 5 mg BID there after 4. Possible pulmonary embolism. Present on admission. Active -Doppler of lower extremities shows left lower extremity DVT -Heparin gtt discontinued -V/Q scan as above, see #2 5. 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 Present on admission. Improving. -Renal tubular acidosis, type 4. Likely secondary to chronic kidney disease. Notes from his primary care physician report CKD stage 3. Prior BUN 34, creatinine 1.41 on 03/22/2016. In 2012, BUN 33, creatinine 1.52. -Lactic acid within normal limits, no ketones but protein in the urine -Follow with CMP -Nephrology consulted and following. Their time and recommendations are appreciated. -Discontinued sodium bicarbonate -Continue chlorthalidone 6. Acute kidney injury on chronic kidney disease. Present on admission. Improving. -Chronic component as patient has longstanding hypertension and see #5 above -Creatinine 1.70 initially, 2.3 today -Renal ultrasound shows mild cortical thinning and increased renal cortical echogenicity bilaterally -Avoid nephrotoxins -Hold home allopurinol for now. -Nephrology consulted and following as above. 7. Hypertension, chronic. Present on admission -Isosorbide nitrate 40 mg twice a day resumed -Held patient's home ANDREW inhibitor due to acute kidney injury. -Avoiding beta blockers, CCB due to heart block -Furosemide 40 mg IV BID -Cardiology recommended hydralazine 50 mg every 8 hours for additional blood pressure control. -Chlorthalidone 25 mg once daily added to regimen 8. Bilateral lower leg and right upper extremity edema and erythema, acute. Present on admission. Improving. - Possible cellulitis. It may be stasis dermatitis from chronic venous congestion. See echocardiogram above. -US of right upper extremity was negative for DVT. -WBC 7.1, within normal limits - Streptozyme and MRSA screen negative -Infectious disease consulted. His time and recommendations are appreciated. -Ceftriaxone discontinued -Continue to monitor -Lotion to be applied as needed for dry skin 9. Hyperkalemia, acute. Present on admission. Improved. -Possibly related to acute kidney injury and metabolic acidosis -Patient received Kayexalate and Lasix in the ED -Follow with CMP 10. Coronary artery disease, chronic. Present on admission. -Troponin elevated but given SHMUEL and elevated BNP, it is likely from demand ischemia. Echocardiogram shows severe pulmonary hypertension. -Continue clopidogrel -Stopped aspirin as pt reports not taking this at home 11. Acute stress reaction. Present on admission. Improved -Patient denies current suicidal ideation -Psychiatry consulted and their time and recommendations were appreciated. 12. Gastroesophageal reflux disease, chronic. Present on admission. -Continued home famotidine 13. Diabetes mellitus type II, diet controlled, chronic. Present on admission. -Sliding insulin scale -HgbA1c 7.1% VTE Prophylaxis: Other (Heparin gtt) Resuscitation Status: Limited Interventions (DNI) Limited Interventions: Compressions, Cardioversion/Defibrillation, BiPAP, Medications and IV Fluid Attending Statement The patient was seen and examined together with Dr. Jamison on 01/17/2017 and I agree with the history, exam and plan as outlined in the note above. . Valencia Jamison DO Jan 17, 2017 09:32 Milad Tucker MD Jan 18, 2017 07:36
[2017-01-17] MEDS: Nitroglycerin 50 mg/250 mL D5W Premix IV SCH (21:36)
[2017-01-18] VITALS (14 sets, daily range): BP systolic 125–150; BP diastolic 70–85; PULSE 92–108; RESP 20–32; O2SAT 96–98
[2017-01-18] MEDS ORDERED: Vancomycin Inj 1,000 MG in IV Premix 1 EACH IV ONE (02:00)
[2017-01-18 03:20] LABS: BASOPHILS % (AUTO) 0.5 % (0-3); EOSINOPHILS % (AUTO) 0 % (0-5); MONOCYTES % (AUTO) 14.5 % (4-12); Mean Corpuscular Hemoglobin 29.3 pg (27.0-35.0); Mean Corpuscular Volume 87.9 fL (81-100); NEUTROPHILS % (AUTO) 74.3 % (40-74); Platelet Count 185 bil/L (150-400)
--- NOTE | 2017-01-18 07:45 | NUR ---
Respiratory / CCU note Pt arrived from [facility] to CCu # 2016 approx at 1915 post pacemaker placement. Pt was placed on BiPAP per orders dur pulmonary edema. Pt was anxious and confused. He attempted multiple times to take off the mask. Staff and spouse at the bedside reminding pt not do so. Pt keep moving frequently and using his left arm (pacemaker side) Left supraclavicular area swollen. Ice and sand bag applied. Pt unable to tolerate sand bag and asking to remove it. Nitro gtt infusing. Drip was off x 1 hr. BP stable. Nitro gtt restarted to maintain MAP < 70 per orders. FC inserted per order. UOP 750 cc. Pt requested BiPAP mask off this am. Risks and benefits discussed and explained to pt and spouse. They verbalize understanding. Mask off since 0600. Pt placed on 13 L oxymask. SPO2 mid 90s. Pt denies SPO2. No overt complications noted.
[2017-01-18] MEDS: Insulin LISPRO 300 Unit/3 mL Inj SUBQ SCH ×4 (08:00→21:46)
--- NOTE | 2017-01-18 09:32 | DRSVH ---
PROCEDURE: X-RAY CHEST ONE VIEW, PORTABLE ([id number]) INDICATIONS: For new lead placement TECHNIQUE: One view of the chest was acquired. COMPARISON: [facility], CR, XR CHEST 1VW (PORTABLE), 01/17/2017, 16:47. FINDINGS: Surgical changes and devices: Stable positioning of dual chamber left cardiac pacer. Lungs and pleura: No change in pulmonary edema and/or basilar pneumonia. Small pleural effusions. N o pneumothorax Mediastinum: Mediastinal contours appear normal. Heart size is normal. Bones and chest wall: No suspicious bony lesions. Overlying soft tissues appear unremarkable. IMPRESSION: Stable chest post pacer placement. Dictated by: Oscar GOMEZ Interpreted: Devora Ordoñez MD on 01/18/2017 at 9:30 Transcribed by: LEONOR on 01/18/2017 at 9:31 Approved by: Devora Ordoñez M.D. on 01/18/2017 at 16:55
[2017-01-18] MEDS ORDERED: Heparin 5,000 Unit/mL Inj IVPUSH PRN (09:35)
[2017-01-18] MEDS: Furosemide 10 mg/mL 4 mL Inj IVPUSH SCH (09:59)
[2017-01-18] MEDS: Isosorbide Dinitrate 40 mg ER24 Tablet PO SCH (10:33)
[2017-01-18] MEDS ORDERED: Furosemide 10 mg/mL 4 mL Inj IVPUSH ONE (11:00)
[2017-01-18] MEDS: Heparin 25K Unit/500mL 0.45 NS 25,000 UNIT in IV Premix 1 EACH IV SCH (11:12)
--- NOTE | 2017-01-18 11:26 | PCM.PNMED ---
Subjective Date of Service Jan 18, 2017 Subjective s/p dual-chamber pacemaker implantation on 01/17. (+) Hematoma noted on left upper chest where PM was placed. developed respiratory distress last night, BiPAP was placed. Exam Vital Signs Vital Sign - Last Date Time Temp Pulse Resp B/P Pulse Ox O2 Delivery O2 Flow Rate FiO2 01/18/17 09:30 98 01/18/17 08:00 Supplement Oxygen CPAP/BIPAP 01/18/17 08:00 37.0 22 148/80 96 50 01/17/17 19:30 6.00 Intake and Output 01/17/17 01/17/17 01/18/17 Cumulative From/Thru 15:00 23:00 07:00 01/09/17 17:14 - 01/18/17 06:15 Intake Total 0 ml 250 ml 10494 ml Output Total 300 ml 750 ml 3928 ml Balance -300 ml -500 ml 76513 ml Intake Oral 0 ml 0 ml 8126 ml IV Total 250 ml 8197 ml Output Urine Total 300 ml 750 ml 3927 ml Estimated Blood Loss 1 ml # Voids 38 # Bowel Movements 13 Exam General: moderate distress, tachypneic, anxious, on BiPAP. Head: Normal Eyes: PERRLA, EOMI, Scleral Anicteric Nose: Mucous Membr Moist/Searcy Mouth: Mucous Membr Moist/Searcy Neck: Supple, (+) JVD. Chest & Lungs: coarse crackles bilaterally. exp wheezes. tachypneic. left pacemaker, hematoma on left upper chest noted. Cardiovascular: Regular Rate/Rhythm Pulses: Normal carotid, radial, femoral, DP, PT Abdomen: Non-tender, Non-distended, Normoactive bowel tones, Soft Extremities: 1+ edema, peeling skin, erythematous LE left > right. Lab and Diagnostics Result Diagram: 01/18/17 0305 01/18/17 030 X-Rays, CTs and MRIs PROCEDURE: US VEINOUS LEG DUPLEX UNILATERAL, LEFT IMPRESSION: Occlusive thrombus within the left superficial femoral vein, popliteal vein, and posterior tibial vein. These findings were discussed with Dr. Lopez at 7:45 PM by the hyperbaric technician. Approved by: Rosaura Angel M.D. on 01/09/2017 at 20:08 PROCEDURE: X-RAY CHEST ONE VIEW, PORTABLE IMPRESSION: 1. Low lung volumes and basilar opacities which may represent atelectasis, although aspiration/infection could also be considered in the differential. 2. Interstitial opacities and cardiomegaly suspicious for fluid overload. Approved by: Rosaura Angel M.D. on 01/09/2017 at 18:50 PROCEDURE: US RENAL SONOGRAM IMPRESSION: 1. Mild cortical thinning and increased renal cortical echogenicity bilaterally , compatible with medical renal disease. 2. No hydronephrosis. Approved by: Carissa Boyd M.D. on 01/10/2017 at 12:45 PROCEDURE: X-RAY CHEST ONE VIEW, PORTABLE IMPRESSION: 1. Mild edema decreased from prior exam and there has been interval increase in bibasilar airspace opacities consistent with patchy pulmonary edema, aspiration or pneumonia. 2. Small effusions redemonstrated. Approved by: Devora Ordoñez M.D. on 01/15/2017 at 16:35 Cardiac Echo Impressions Echocardiogram Report Interpretation Summary The left ventricle is mildly dilated. The ejection fraction is estimated to be 35-40%. There is severe hypokinesis of the mid and distal septum, and akinesis of the septum and posterior wall. The anterior wall is hypokinetic and in apical inferior wall is akinetic. 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 There is severe pulmonary hypertension. The right ventricular systolic pressure is estimated at 89 mmHg assuming a right atrial pressure of 15 mm Hg. The right ventricle is mildly dilated. The right ventricular systolic function is normal. There is moderate to severe mitral regurgitation. There is moderate biatrial enlargement. The patient was in third degree heart block during the exam. The heart rate ranged between 50-70 bpm during the study. No other echocardiographic abnormalities seen. Reading Physician:04: 50 PM Assessment & Plan 1. SHMUEL on CKD secondary to ATN and CRS. 2. Worsening SOB, suspected acute on chronic systolic CHF/right sided HF/pulm HTN. 3. left LE DVT and venous stasis 4. 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 - complicated by hematoma. 5. HTN with hypertensive nephrosclerosis. 6. 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 plan: increase IV lasix to 80 mg q12 hr. add one dose of metolazone 5 mg today. repeat PVR. no urgent HD indicated at this moment. rec palliative care consult. VTE Prophylaxis: Other (Heparin gtt) Resuscitation Status: Limited Interventions (DNI) Limited Interventions: Compressions, Cardioversion/Defibrillation, BiPAP, Medications and IV Fluid Marisel Newman MD Jan 18, 2017 11:22
[2017-01-18] MEDS ORDERED: Magnesium Sulf 2 Gm/50mL Water 1 GM in IV Premix 1 EACH IV ONE (12:20)
--- NOTE | 2017-01-18 12:55 | PROG NOTE ---
[address] [address] PROGRESS NOTE PATIENT: ALISA TERRAZAS : 1935 MR#: [id number] ADMIT: 01/09/2017 JOB ID: [id number] DATE: 01/18/2017 SUBJECTIVE: This is a critical care cardiology followup. This is the first time I am seeing this patient. Previously, he was seen by Dr. Leiva and Dr. Quevedo, as well as Dr. Dodge. At present, he is in the ICU. He is on BiPAP. OBJECTIVE: He is tachypneic and respiratory rate about 25-30, blood pressure 143/78, pulse 108, mostly ventricular-paced rhythm and atrial-sensed rhythm, oxygen saturation on 50% FiO2 about 98%. Denies any active chest pain. He is not having any fever or significant cough or hemoptysis or active bleeding. On physical examination, the patient has a positive JVD. Chest: Decreased air entry with basilar crepitations. Pacemaker pocket has a dressing. The patient has diffuse ecchymosis around the pacemaker pocket, as well as extending into the left armpit. CVS: S1 appears normal. P2 appears prominent. No S3. No S4. Soft ejection systolic murmur at the apex. Abdomen: I do not appreciate any pulsatile mass. Difficult to comment upon hepatosplenomegaly. Extremities: 1+ bilateral pedal edema. WAX POURER: The patient is alert, oriented to time, place and person at present. Vascular: No evidence of critical limb ischemia. LABORATORIES: Sodium 139, potassium 4.2, BUN 47, creatinine 2.09. AST 110, ALT 29. ProBNP on January 15 was 11,611. WBC 10.4, hemoglobin 12.8, platelets 185. DISCUSSION: This 81-year-old, pleasant male got admitted to the hospital on January 09, 2017, with known history of diabetes mellitus, hypertension, hyperlipidemia, coronary artery disease, previous myocardial infarction with worsening shortness of breath and lower extremity edema. The patient was found to be in intermittent complete heart block, Mobitz type 2 block, in the setting of metabolic acidosis and acute renal failure. He was seen by Dr. Quevedo on January 11, 2017. He had an echocardiogram on January 10, 2017, which revealed mildly dilated left ventricle with LV ejection fraction 35% to 40% with different wall motion abnormalities consistent with prior posterior infarct and anterior septal and apical injury. There was moderate to severe mitral regurgitation without any significant structurally mitral valve abnormality as per the echo report, moderate tricuspid regurgitation and pulmonary artery systolic pressure was about 89 mmHg suggestive of severe pulmonary hypertension. No pericardial effusion. Right ventricular function reported to be normal. The patient also found to have extensive deep venous thrombosis of left leg. He was started on anticoagulation. There was suspicion for pulmonary embolism as well. The patient was seen by Dr. Leiva yesterday, and he underwent [place] dual-chamber permanent pacemaker insertion. Postoperatively, he developed worsening shortness of breath and developed pulmonary edema picture. He was put on BiPAP. IV Lasix was adjusted. I reviewed his input and output from last couple of days in the hospital. Since his admission he is on positive balance every day. His weight was about 79 kg on admission and today, is about 87.5 kg. His troponin T on admission was 0.11 and 0.133. ASSESSMENT AND PLAN: Acute on chronic predominantly systolic congestive heart failure with underlying left ventricular dysfunction with left ventricular ejection fraction 35% to 40%, most likely ischemic cardiomyopathy, with moderate to severe mitral regurgitation, severe pulmonary hypertension with pulmonary artery systolic pressure of almost 90 mmHg with moderate tricuspid regurgitation with intermittent complete heart block, Mobitz type 2 block, status post [place] dual-chamber permanent pacemaker insertion yesterday with extensive left lower extremity deep venous thrombosis with possibility of pulmonary embolism, acute renal failure, history of metabolic acidosis, essential hypertension, hyperkalemia during hospital admission, and other problems as stated above. Likely precipitant of worsening shortness of breath and pulmonary edema is volume overload as I mentioned above. However, transient ischemia cannot be ruled out. Patient already has ischemic cardiomyopathy with left ventricular ejection fraction 35% to 40%, as well as moderately severe mitral regurgitation, which appears to be ischemic. Today, the patient was seen by [facility], and they increased the Lasix to 80 mg q.12 h., as well as one dose of metolazone, which I agreed. The patient will need optimization of diuretic to achieve euvolemic state. If needed, will recommend IV Lasix drip starting at 5 mg/hour. During this process, kidney function can get worse. Will recommend optimizing afterload reduction as well. He is on nitroglycerin drip, which will continue. He is on hydralazine 50 mg q.8 h. Now, he got a pacemaker. Hence, to prevent ischemia, will give him trial of beta yari. Carvedilol would be a reasonable choice. We will start 3.125 mg twice a day. He has ecchymosis around pacemaker site. He has extensive left lower extremity deep venous thrombosis, as well as possibility of pulmonary embolism. Hence, he will need anticoagulation. However, it can cause significant hematoma down the road. At present, hemoglobin stable. We will recommend close watch of pacemaker site, as well as electrolytes and hemoglobin evaluation. Consider fluid restriction to 1.5 L a day, as well as salt restriction of less than 1.5 g per day. Consider statin therapy as well. I discussed extensively with patient's about patient's medical conditions including cardiac conditions and overall prognosis, which appears to be guarded at this point of time. I discussed the plan with our Hospitalist team as well. Tomorrow, my associate, Dr. Duran, will be available to see the patient. TOTAL TIME SPENT: For this critical care followup, about 60 minutes.
[2017-01-18] MEDS ORDERED: Magnesium Sulfate 50% Inj 1 GM in Dextrose 5% 50 ML IV ONE (13:15)
--- NOTE | 2017-01-18 13:33 | NUR ---
NUTRITION ASSESSMENT Assess: Pt is an 81 yo male admitted w/ DVT, probable PE, and CHF. Cardiology is following, and found intermittent complete heart block w/ metabolic acidosis and ARF. A pacemaker was inserted yesterday. After the operation, pt experienced worsening SOB and pulmonary edema. Placed on Bipap. Nephrology also consulted for SHMUEL on CKD. Per notes, started Lasix but feels HD not necessary at this time. Nephrology recommended palliative care consult. Pt w/ adequate PO intake. PMHx: HTN, Type II DM, CAD w/ history of [place] LABS: BUN 47, Feed Mill Supervisor 2.09, Gluc 156, Ca 8.4, AST 110, Alb 3.1 MEDICATIONS: Pepcid, Plavix, Insulin DIET: Heart Healthy PO 25-100% GI symptoms/stool: BMx4 (01/16) SKIN: 17 - Redness and swelling noted on bilateral lower legs ANTHROPOMETRICS: Current Wt: 87.5 kg BMI: 26.9 kg/m2 Admit Wt: 83.7 kg IBW: 75.5 kg ESTIMATED NEEDS: Acute Renal Failure Calories: 5499-2599 kcal/day (25-35 kcal/kg BW) Protein: 55-70 g/day (0.6-0.8 g/kg BW) Fluids: 1.5 L per cardiology NUTRITION DIAGNOSIS: 1) Altered nutrition-related lab values related to acute renal failure as evidenced by elevated BUN and Feed Mill Supervisor levels. INTERVENTION: 1) Continue w/ current diet as ordered d/t adequate PO intake. MONITOR/EVALUATE: PO intake, wt, GI, labs, nutrition status, POC. Will continue to monitor per low nutritional risk guidelines. Addendum: 01/18/17 at [address] Student documentation reviewed and I agree with the above assessment. Hayes Torres, MS, RDN, CD
--- NOTE | 2017-01-18 14:21 | PCM.PNMED ---
Subjective Date of Service Jan 18, 2017 Subjective Mr. Walsh is an 81-year-old male with type 2 diabetes mellitus, hypertension and CAD with history of ND presenting as a referral from [facility] for shortness of breath. Patient is accompanied by his at bedside. Today, Mr. Walsh reports he has trouble breathing and that his incision site for the pacemaker hurts. He does not have chest pain outside of the incision site. He gets tired when he is off of BiPAP. Exam Vital Signs Vital Sign - Last Date Time Temp Pulse Resp B/P Pulse Ox O2 Delivery O2 Flow Rate FiO2 01/18/17 12:30 103 27 139/85 96 50 01/18/17 12:01 36.9 BiPAP 01/17/17 19:30 6.00 Intake and Output 01/17/17 01/17/17 01/18/17 Cumulative From/Thru 15:00 23:00 07:00 01/09/17 17:14 - 01/18/17 06:15 Intake Total 0 ml 250 ml 01570 ml Output Total 300 ml 750 ml 3928 ml Balance -300 ml -500 ml 13662 ml Intake Oral 0 ml 0 ml 8126 ml IV Total 250 ml 8197 ml Output Urine Total 300 ml 750 ml 3927 ml Estimated Blood Loss 1 ml # Voids 38 # Bowel Movements 13 Exam General: Elderly patient sitting upright in bed with BiPAP in place. No acute distress, well-developed, well-nourished, appropriately interactive. HEENT: Normocephalic, atraumatic. External ears without defect. Pupils equal, round, and reactive to light. Oral mucosa pink with dry mucosa. Cardiovascular: Regular rate and rhythm. No murmurs, rubs, or gallops appreciated Pulmonary: Diffuse crackles bilaterally with wheezing or rhonchi. Increased respiratory effort with use of accessory muscles. Abdomen: Bowel tones present. Soft, nontender, nondistended. Extremities: Left lower extremity with edema, swelling and moderate erythema to 2/3 lower leg distal to knee, improving, with dry skin. Right lower extremity with edema, swelling and mild erythema 1/3 up lower leg distal to knee, improving, with dry skin. Onychomycosis of bilateral toenails. Erythema and edema of right upper arm, improving compared to pen line. Neurological: Cranial nerves grossly intact. Normal muscle strength, tone, and bulk. Psychiatric: Normal mood and affect. Alert and oriented to person, place, and time. IVs and Medications Medications Reviewed: Medications were reviewed in detail Lab and Diagnostics Result Diagram: 01/18/17 03001/18/17 030 X-Rays, CTs and MRIs PROCEDURE: US VEINOUS LEG DUPLEX UNILATERAL, LEFT IMPRESSION: Occlusive thrombus within the left superficial femoral vein, popliteal vein, and posterior tibial vein. These findings were discussed with Dr. Lopez at 7:45 PM by the classroom technology technician. Approved by: Rosaura Angel M.D. on 01/09/2017 at 20:08 PROCEDURE: X-RAY CHEST ONE VIEW, PORTABLE IMPRESSION: 1. Low lung volumes and basilar opacities which may represent atelectasis, although aspiration/infection could also be considered in the differential. 2. Interstitial opacities and cardiomegaly suspicious for fluid overload. Approved by: Rosaura Angel M.D. on 01/09/2017 at 18:50 PROCEDURE: US RENAL SONOGRAM IMPRESSION: 1. Mild cortical thinning and increased renal cortical echogenicity bilaterally , compatible with medical renal disease. 2. No hydronephrosis. Approved by: Carissa Boyd M.D. on 01/10/2017 at 12:45 PROCEDURE: X-RAY CHEST ONE VIEW, PORTABLE IMPRESSION: Dual-chamber cardiac pacemaking device leads in normal position, generalized moderate pulmonary edema, small subpulmonic right pleural effusion is again seen. Approved by: Ermias Major M.D. on 01/17/2017 at 17:26 Cardiac Echo Impressions Echocardiogram Report Interpretation Summary The left ventricle is mildly dilated. The ejection fraction is estimated to be 35-40%. There is severe hypokinesis of the mid and distal septum, and akinesis of the septum and posterior wall. The anterior wall is hypokinetic and in apical inferior wall is akinetic. 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 There is severe pulmonary hypertension. The right ventricular systolic pressure is estimated at 89 mmHg assuming a right atrial pressure of 15 mm Hg. The right ventricle is mildly dilated. The right ventricular systolic function is normal. There is moderate to severe mitral regurgitation. There is moderate biatrial enlargement. The patient was in third degree heart block during the exam. The heart rate ranged between 50-70 bpm during the study. No other echocardiographic abnormalities seen. Reading Physician:04: 50 PM Assessment & Plan Mr. Walsh is an 81-year-old male with type 2 diabetes mellitus, hypertension and CAD with history of ND presenting as a referral from [facility] for shortness of breath. 1. Acute on chronic systolic congestive heart failure exacerbation. Present on admission. Active -Chest x-ray with findings of moderate pulmonary edema. Clinically, patient with lower extremity edema and mild JVD. He continues to have dyspnea. He is currently on BiPAP. -Echocardiogram showed EF of 35-40% and severe pulmonary hypertension. -[place] 8784 [place] [address] -Monitor I/O and daily weights -Continue nitroglycerin drip -Started furosemide IV 20 mg/h drip -Monitor potassium level this evening -Started carvedilol 3.125 mg twice per day -Patient given 1 mg of magnesium -Discontinued isosorbide dinitrate for now 2. 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 Unknown acuity. Present on admission. Active. -Pacemaker placement yesterday 3. Left lower extremity DVT, acute. Present on admission. Active. -Doppler US showed an occlusive thrombus within the left superficial femoral vein, popliteal vein, and posterior tibial vein. -Heparin gtt resumed -Monitor for hematoma and bruising -Monitor CBC 4. Possible pulmonary embolism. Present on admission. Active -Doppler of lower extremities shows left lower extremity DVT -Heparin gtt resumed -V/Q scan was refused 5. Acute kidney injury on chronic kidney disease. Present on admission. Improving. -Chronic component as patient has longstanding hypertension and see above -Creatinine 1.70 initially, 2.09 today -Renal ultrasound shows mild cortical thinning and increased renal cortical echogenicity bilaterally -Avoid nephrotoxins -Hold home allopurinol for now. -Nephrology consulted and following as above. -1 dose of metolazone 5 mg today 6. 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 Present on admission. Improving. -Renal tubular acidosis, type 4. Likely secondary to chronic kidney disease. Notes from his primary care physician report CKD stage 3. Prior BUN 34, creatinine 1.41 on 03/22/2016. In 2012, BUN 33, creatinine 1.52. -Lactic acid within normal limits, no ketones but protein in the urine -Nephrology consulted and following. Their time and recommendations are appreciated. -Continue chlorthalidone -Follow with CMP 7. Hypertension, chronic. Present on admission -Hold Isosorbide nitrate 40 mg twice a day as patient is currently on a nitroglycerin drip -Held patient's home ANDREW inhibitor due to acute kidney injury. -Avoiding beta blockers, CCB due to heart block -Furosemide 40 mg IV BID discontinued and patient started on furosemide drip as above -Cardiology recommended hydralazine 50 mg every 8 hours for additional blood pressure control. -Chlorthalidone 25 mg once daily added to regimen 8. Bilateral lower leg and right upper extremity edema and erythema, acute. Present on admission. Improving. - Possible cellulitis. It may be stasis dermatitis from chronic venous congestion. See echocardiogram above. -US of right upper extremity was negative for DVT. -WBC 7.1, within normal limits - Streptozyme and MRSA screen negative -Infectious disease consulted. His time and recommendations are appreciated. -Ceftriaxone discontinued -Continue to monitor -Lotion to be applied as needed for dry skin 9. Hyperkalemia, acute. Present on admission. Improved. -Possibly related to acute kidney injury and metabolic acidosis -Patient received Kayexalate and Lasix in the ED -Follow with CMP 10. Coronary artery disease, chronic. Present on admission. -Troponin elevated but given SHMUEL and elevated BNP, it is likely from demand ischemia. Echocardiogram shows severe pulmonary hypertension. -Continue clopidogrel -Stopped aspirin as pt reports not taking this at home 11. Acute stress reaction. Present on admission. Improved -Patient denies current suicidal ideation -Psychiatry consulted and their time and recommendations were appreciated. 12. Gastroesophageal reflux disease, chronic. Present on admission. -Continued home famotidine 13. Diabetes mellitus type II, diet controlled, chronic. Present on admission. -Sliding insulin scale -HgbA1c 7.1% Pain Evaluation: Adequate Pain Control VTE Prophylaxis: Other (Heparin gtt) Resuscitation Status: Limited Interventions (DNI) Limited Interventions: Compressions, Cardioversion/Defibrillation, BiPAP, Medications and IV Fluid Attending Statement The patient was seen and examined together with Dr. Jamison on 01/18/2017 and I agree with the history, exam and plan as outlined in the note above. . Valencia Jamison DO Jan 18, 2017 14:21 Milad Tucker MD Jan 18, 2017 18:16
--- NOTE | 2017-01-18 14:50 | NUR ---
Tele/Resp/Skin/Left chest bruising/output/Activity Tele has been mostly paced, rate 90s-low 100s-- occ SR with IVCD. Frequent PVCs. Initially on 13 L Oxymask, but quickly placed on bipap at 50% due to increasing RR and WOB. Attempted once again to place on NC or Oxymask for breakfast, but patient started to struggle again. Talked with patient and spouse about not trying lunch, letting the diuretics work, and try again for dinner to remove bipap. MD agreed with this plan. Lower extremities with pitting edema. Leg skin is reddened and flaky. Right arm has a weeping skin tear. Left chest pacemaker site has a dressing with some drainage on it. There is a hematoma and extensive bruising around pacemaker sit, left chest. Most of the site is soft, however. Started heparin gtt as ordered. Outlined bruising at pacer site and watching closely for extension of bruising. Ice bag full of water at site per MD for weight. Left arm in sling. Patient requires multiple reminders to keep left arm at his side. Found his arm out of sling several times. bridge of nose is red from bipap mask. Patient refused mepilex and cloth cushioning even after multiple staff discussing risk of skin break down. Offered different mask, but patient refused. Espino draining to gravity. Assisting patient to turn in bed. Continuing with poc.
--- NOTE | 2017-01-18 15:47 | NUR ---
Transfer to PCC 2023 Patient transferred to room 2023, continuing with PCC status. Report to BESSIE Marcial. Transferred with all belongings.
[2017-01-18] MEDS: Furosemide Inj 100 MG in 0.9% Sodium Chloride 90 ML IVPUSH SCH (17:59)
--- NOTE | 2017-01-18 19:42 | NUR ---
Transfer PCC/Resp Patient transferred to 2023 in bed. Bipap replaced post transfer, patient surekha well. Resting intermittently this afternoon. Patient placed on oxymask 13 L for dinner sat 85% when patient removes O2 for several minutes. Patient encouraged to use oxymask between bites of dinner. VSS, tele paced. left chest wall drsg with min old sang drainage and bruising on left chest and arm outlined by previous RN. Patient on Heparin gtt, Nitro gtt and lasix gtt. Espino patent juana cloudy uop. at bedside assisting with care.
[2017-01-18] MEDS: Nitroglycerin 50 mg/250 mL D5W Premix IV SCH (20:05)
[2017-01-18] MEDS ORDERED: Furosemide 10 mg/mL 4 mL Inj IVPUSH SCH (20:30)
[2017-01-19] VITALS (12 sets, daily range): BP systolic 126–150; BP diastolic 65–96; PULSE 76–100; RESP 20–30; O2SAT 96–99
--- NOTE | 2017-01-19 00:11 | NUR ---
Patient refused to use the Mepilex even after much explanation of risks and demonstration of use. Gave patient the Mepilex to hold and touch and gave to the . After much discussion patient agreed to a bandaid. RN was informed
[2017-01-19] MEDS: Furosemide Inj 100 MG in 0.9% Sodium Chloride 90 ML IVPUSH SCH ×4 (02:01→18:45)
--- NOTE | 2017-01-19 04:14 | NUR ---
Bi-Pap/Mepilex/Tele,GTT Pt refused bipap at first, agreed to try [place] until he saw it, then wanted to use Oxy Mask, eventually agreed to Bi-Pap but refused to all ow Mepilex dressing on bridge of nose , compromised with Band-Aid, reasons for dressing and risks of skin compromise were explained in detail to Pt and . BI-Pap @ 10.5.45. No C/O pain this shift Heparin Gtt @ 16u/Kg/Hr last Ptt heparin : 100 Nitro Gtt @ 3 Ml/hr or 10 Mcg/Min. Lasix Gtt @ 10Ml/Hr. Espino catheter draining Pale yellow urine to gravity, Pacer site , showing no further signs of swelling, mapped bruising seeming not to change, cold pack on shoulder over pacer insertion site Pacer dressing no new drainage . Left arm in sling, pt tolerating it well. A&Ox3 , though not using call light, staying in room to assist in decision making Dislodged one of 3 peripheral IVs, replaced on rt forearm. May use Oxy Mask @ 13 L to eat . Tele V-Paced @ 60-100
[2017-01-19 04:55] LABS: EOSINOPHILS % (AUTO) 1.5 % (0-5); MONOCYTES % (AUTO) 18.1 % (4-12); Mean Corpuscular Hemoglobin 29.4 pg (27.0-35.0); Mean Corpuscular Volume 88.8 fL (81-100); NEUTROPHILS % (AUTO) 65.3 % (40-74); Platelet Count 149 bil/L (150-400)
[2017-01-19] MEDS: Heparin 25K Unit/500mL 0.45 NS 25,000 UNIT in IV Premix 1 EACH IV SCH (05:14)
--- NOTE | 2017-01-19 05:15 | NUR ---
Elevated leak on bipap mask, anytime i would tighten the mask either patient or patients would pull and loosen. Estimated leak remained under 75.
[2017-01-19] MEDS: Insulin LISPRO 300 Unit/3 mL Inj SUBQ SCH ×4 (08:00→21:16)
--- NOTE | 2017-01-19 11:11 | PROG NOTE ---
[address] [address] PROGRESS NOTE PATIENT: ALISA TERRAZAS : 1935 MR#: [id number] ADMIT: 01/09/2017 JOB ID: [id number] DATE: 01/19/2017 SUBJECTIVE: The patient is an 81-year-old male with a complex set of medical problems apparently without any previous documented cardiac history who was admitted with progressive pulmonary edema and dyspnea with an echocardiogram on admission that showed an ejection fraction of around 35%-40% with hypokinesis in the mid and distal septum and akinesis of the posterior wall concerning for underlying coronary disease with moderate-to- severe mitral regurgitation and moderate tricuspid regurgitation with severe pulmonary hypertension with a PA peak estimated at 89 mmHg and a CVP of 15 mmHg. Right ventricular size was mildly enlarged with preserved systolic function. He was found to have a complete heart block in the 50s with hyperkalemia and an underlying metabolic acidosis. Troponins were borderline elevated and he had acute renal failure with concern for cellulitis and Doppler documented DVTs for which he was put on anticoagulation. Despite normalization of his acid base, he continued to have persistent second-degree AV block and a dual-chamber pacemaker was placed by Dr. Leiva on January 17, 2017 complicated by postoperative acute dyspnea and evidence of pulmonary edema and was seen urgently by Dr. Cowart. He was started on BiPAP and was felt to be fluid overload from a progressive positive fluid balance. He was started on IV diuresis including IV Lasix and IV nitrates for afterload reduction. He received a dose of metolazone and was started on low-dose carvedilol yesterday. With this, he has noted a significant improvement in his dyspnea over the last 24 hours but still is not yet back to baseline and still complains of some dyspnea while supine. He feels that his energy has markedly improved since the pacemaker. While he has a modest hematoma at the pacemaker site with ecchymoses, he denies any significant discomfort. He has never had any anginal discomfort throughout his presentation or prior to admission. PHYSICAL EXAMINATION: Elderly male, in no distress. Skin warm and dry. HR now currently in the 80-90 BPM range with a sinus rhythm with ventricular pacing. Blood pressure 127/70. O2 saturation was 97% on 45% FiO2 using BiPAP although currently is only on nasal cannula and appears quite comfortable. He has had a net diuresis over the last 36 hours of around 1.5 L and his weight is down 1.7 kg. Lungs: Relatively clear bilaterally without any appreciable rales. CV: Regular rhythm with a 2/6 holosystolic murmur at the apex. JVP appears to be 7-8 cm with a prominent V wave and considerable respiratory variation. Abdomen: Soft and nondistended and nontender. Extremities warm with 1+ bilateral pitting edema which he and his state are significantly improved from yesterday. His pacemaker site has a moderate sized soft hematoma with an ecchymoses extending into the axilla and down the left arm. LABORATORY: Hematocrit today remains stable at 31%. Potassium this morning was 3.8 with a BUN of 51 and a creatinine of 2.1 compared to 47 and 2.1 yesterday. Blood sugar is 177. AST has improved from 110 down to 88, although was 43 prior to that. Magnesium level yesterday was 2.0. IMPRESSION: 1. Probable acute on chronic systolic congestive heart failure with likely exacerbation due to volume overload. He now appears to have had a significant diuresis although continues to have some evidence of volume overload and thus would continue with IV diuresis again today although with close observation of his renal function. I suspect that his mitral regurgitation is likely contributing to this, and given the focality seen on his echocardiogram, most likely does have underlying ischemic heart disease although there is no evidence for an acute coronary syndrome. At some point, he will likely require an ischemic evaluation, but given his current acute renal failure, I am reluctant to do so, but if his renal function significantly improves, a pharmacologic myocardial perfusion scan should be pursued. This can either be done during this hospitalization or as an outpatient depending upon his clinical course if he continues to improve, but I do not think it needs to be done urgently. With his mitral regurgitation, afterload reduction remains important and I will advance his carvedilol slightly as ANDREW inhibitors are currently contraindicated because of his renal insufficiency. If this improves, however, I would recommend institution of low-dose ANDREW inhibitor. 2. Severe pulmonary hypertension. His degree of pulmonary hypertension seems out of proportion to his degree of LV dysfunction and mitral regurgitation although this is conceivable. However, it does raise the possibility of pulmonary embolism given his documented DVT. I would continue with anticoagulation and diuresis as above. Repeat echocardiography in several months to reassess valvular and ventricular function and pulmonary artery pressures would be beneficial. 3. Presumed underlying coronary artery disease. As above, the focality of his echocardiogram suggests possible underlying ischemic heart disease. Statin therapy should be considered at the time of discharge as long as his liver function continues to improve. 4. Acute renal failure. As above, he is being followed by the nephrology service and will defer further evaluation and treatment to them. I would anticipate taking him off IV diuretics within the next day or so and instituting oral diuretics. 5. Complete heart block, now resolved, with pacemaker. He appears to have improved cardiac output with better energy now that he has a pacemaker. While there is ecchymoses, I do not see any evidence of infection. 6. History of metabolic acidosis of unclear etiology. Per the hospitalist. 7. Lower extremity deep venous thrombophlebitis. As above. PLAN: 1. Continue with IV diuresis today with management per the renal team, but I would anticipate changing him to an oral regimen tomorrow if he continues to do well. 2. Consider initiation of ANDREW inhibitor if his renal function improves. 3. Continue to track electrolytes and renal function including magnesium. 4. Initiate physical therapy at the request of his who is concerned about his bedridden state. 5. Anticipate a noninvasive ischemic evaluation but I think this can be deferred to the outpatient setting unless his renal function improves markedly. 6. Will likely require followup with Dr. Quevedo as an outpatient once he is discharged. I spent 53 minutes reviewing the patient record, evaluating the patient, answering the patient and his 's questions and documenting this.
[2017-01-19] MEDS ORDERED: Potassium Chloride 20 mEq SR Tablet PO ONE (11:20)
--- NOTE | 2017-01-19 12:39 | NUR ---
Insulin Pt refused insulin at 1230. BG was 189. Pt's stated that he does not take insulin at home and his BG was high due to him just finishing eating. Will check BG at dinner time.
--- NOTE | 2017-01-19 13:57 | PCM.PNMED ---
Subjective Date of Service Jan 19, 2017 Subjective He stated that he is doing better yet required C-PAP last night. IV lasix gtt started yesterday. Exam Vital Signs Vital Sign - Last Date Time Temp Pulse Resp B/P Pulse Ox O2 Delivery O2 Flow Rate FiO2 01/19/17 12:00 36.8 76 26 146/74 96 Nasal Cannula 6.00 01/19/17 07:35 45 Intake and Output 01/18/17 01/18/17 01/19/17 Cumulative From/Thru 15:00 23:00 07:00 01/09/17 17:14 - 01/19/17 06:08 Intake Total 422 ml 495 ml 71453 ml Output Total 925 ml 900 ml 5753 ml Balance -503 ml -405 ml 31595 ml Intake Oral 120 ml 100 ml 8346 ml IV Total 302 ml 395 ml 8894 ml Output Urine Total 925 ml 900 ml 5752 ml Estimated Blood Loss 1 ml # Voids 38 # Bowel Movements 0 13 Exam General: mild distress, tachypneic, on NC. Head: Normal Eyes: PERRLA, EOMI, Scleral Anicteric Nose: Mucous Membr Moist/[place] Mouth: Mucous Membr Moist/[place] Neck: Supple, (+) JVD. Chest & Lungs: coarse crackles bilaterally. Tachypneic. left pacemaker, hematoma on left upper chest noted, cold compress applied. Cardiovascular: Regular Rate/Rhythm Pulses: Normal carotid, radial, femoral, DP, PT Abdomen: Non-tender, Non-distended, Normoactive bowel tones, Soft Extremities: 1+ edema, peeling skin, erythematous LE left > right. Lab and Diagnostics Result Diagram: 01/19/1744401/19/17444 X-Rays, CTs and MRIs PROCEDURE: US VEINOUS LEG DUPLEX UNILATERAL, LEFT IMPRESSION: Occlusive thrombus within the left superficial femoral vein, popliteal vein, and posterior tibial vein. These findings were discussed with Dr. Lopez at 7:45 PM by the remote sensing technician. Approved by: Rosaura Angel M.D. on 01/09/2017 at 20:08 PROCEDURE: X-RAY CHEST ONE VIEW, PORTABLE IMPRESSION: 1. Low lung volumes and basilar opacities which may represent atelectasis, although aspiration/infection could also be considered in the differential. 2. Interstitial opacities and cardiomegaly suspicious for fluid overload. Approved by: Rosaura Angel M.D. on 01/09/2017 at 18:50 PROCEDURE: US RENAL SONOGRAM IMPRESSION: 1. Mild cortical thinning and increased renal cortical echogenicity bilaterally , compatible with medical renal disease. 2. No hydronephrosis. Approved by: Carissa Boyd M.D. on 01/10/2017 at 12:45 PROCEDURE: X-RAY CHEST ONE VIEW, PORTABLE IMPRESSION: Dual-chamber cardiac pacemaking device leads in normal position, generalized moderate pulmonary edema, small subpulmonic right pleural effusion is again seen. Approved by: Ermias Major M.D. on 01/17/2017 at 17:26 Cardiac Echo Impressions Echocardiogram Report Interpretation Summary The left ventricle is mildly dilated. The ejection fraction is estimated to be 35-40%. There is severe hypokinesis of the mid and distal septum, and akinesis of the septum and posterior wall. The anterior wall is hypokinetic and in apical inferior wall is akinetic. 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 There is severe pulmonary hypertension. The right ventricular systolic pressure is estimated at 89 mmHg assuming a right atrial pressure of 15 mm Hg. The right ventricle is mildly dilated. The right ventricular systolic function is normal. There is moderate to severe mitral regurgitation. There is moderate biatrial enlargement. The patient was in third degree heart block during the exam. The heart rate ranged between 50-70 bpm during the study. No other echocardiographic abnormalities seen. Reading Physician:04: 50 PM Assessment & Plan 1. SHMUEL on CKD secondary to ATN and CRS. 2. Worsening SOB, suspected acute on chronic systolic CHF/right sided HF/pulm HTN. 3. left LE DVT and venous stasis 4. 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 - complicated by hematoma. 5. HTN with hypertensive nephrosclerosis. 6. 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 plan: continue lasix 10 mg/hr. metolazone 5 mg BID. replace KCL. no urgent HD indicated at this moment. VTE Prophylaxis: Other (Heparin gtt) Resuscitation Status: Limited Interventions (DNI) Limited Interventions: Compressions, Cardioversion/Defibrillation, BiPAP, Medications and IV Fluid Marisel Newman MD Jan 19, 2017 13:57
--- NOTE | 2017-01-19 16:09 | NUR ---
Evaluation completed. Please go to "Notes" then click on "Assessments and Notes" (bottom left corner of screen). Then select appropriate discipline tab on top of screen.
--- NOTE | 2017-01-19 16:11 | NUR ---
Nitro gtt After discussion with MD during rounding and MAP being 106 I was asked to titrate Nitro to 15mcg/min to keep MAP between 70-90. Will continue to monitor.
--- NOTE | 2017-01-19 18:37 | PCM.PNMED ---
Subjective Date of Service Jan 19, 2017 Subjective Mr. Walsh is an 81-year-old male with type 2 diabetes mellitus, hypertension and CAD with history of MN presenting as a referral from [facility] for shortness of breath. Patient is accompanied by his at bedside. This morning, he states that his breathing and leg swelling have improved. He continues to be short of breath. He denies chest pain and leg pain. Exam Vital Signs Vital Sign - Last Date Time Temp Pulse Resp B/P Pulse Ox O2 Delivery O2 Flow Rate FiO2 01/19/17 09:01 Supplement Oxygen CPAP/BIPAP 01/19/17 08:17 88 01/19/17 07:35 37.3 30 127/70 97 45 01/18/17 20:15 13.00 Intake and Output 01/18/17 01/18/17 01/19/17 Cumulative From/Thru 15:00 23:00 07:00 01/09/17 17:14 - 01/19/17 06:08 Intake Total 422 ml 495 ml 18493 ml Output Total 925 ml 900 ml 5753 ml Balance -503 ml -405 ml 91507 ml Intake Oral 120 ml 100 ml 8346 ml IV Total 302 ml 395 ml 8894 ml Output Urine Total 925 ml 900 ml 5752 ml Estimated Blood Loss 1 ml # Voids 38 # Bowel Movements 0 13 Exam General: Elderly patient sitting upright in bed with nasal cannula in place. No acute distress, well-developed, well-nourished, appropriately interactive. HEENT: Normocephalic, atraumatic. External ears without defect. Pupils equal, round, and reactive to light. Oral mucosa pink with dry mucosa. Cardiovascular: Regular rate and rhythm. No murmurs, rubs, or gallops appreciated Pulmonary: Diffuse crackles bilaterally with wheezing or rhonchi. Increased respiratory effort with use of accessory muscles. Abdomen: Bowel tones present. Soft, nontender, nondistended. Extremities: Left lower extremity with mild pitting edema, swelling and mild erythema, improving, with dry skin. Right lower extremity with mild pitting edema, swelling and mild erythema limited to inferior mcgee, improving, with dry skin. Onychomycosis of bilateral toenails. Erythema and edema of right upper arm , improving compared to pen line. Neurological: Cranial nerves grossly intact. Normal muscle strength, tone, and bulk. Psychiatric: Normal mood and affect. Alert and oriented to person, place, and time. IVs and Medications Medications Reviewed: Medications were reviewed in detail Lab and Diagnostics Result Diagram: 01/19/17 04401/19/175 X-Rays, CTs and MRIs PROCEDURE: US VEINOUS LEG DUPLEX UNILATERAL, LEFT IMPRESSION: Occlusive thrombus within the left superficial femoral vein, popliteal vein, and posterior tibial vein. These findings were discussed with Dr. Lopez at 7:45 PM by the therapy tech. Approved by: Rosaura Angel M.D. on 01/09/2017 at 20:08 PROCEDURE: X-RAY CHEST ONE VIEW, PORTABLE IMPRESSION: 1. Low lung volumes and basilar opacities which may represent atelectasis, although aspiration/infection could also be considered in the differential. 2. Interstitial opacities and cardiomegaly suspicious for fluid overload. Approved by: Rosaura Angel M.D. on 01/09/2017 at 18:50 PROCEDURE: US RENAL SONOGRAM IMPRESSION: 1. Mild cortical thinning and increased renal cortical echogenicity bilaterally , compatible with medical renal disease. 2. No hydronephrosis. Approved by: Carissa Boyd M.D. on 01/10/2017 at 12:45 PROCEDURE: X-RAY CHEST ONE VIEW, PORTABLE IMPRESSION: Dual-chamber cardiac pacemaking device leads in normal position, generalized moderate pulmonary edema, small subpulmonic right pleural effusion is again seen. Approved by: Ermias Major M.D. on 01/17/2017 at 17:26 Cardiac Echo Impressions Echocardiogram Report Interpretation Summary The left ventricle is mildly dilated. The ejection fraction is estimated to be 35-40%. There is severe hypokinesis of the mid and distal septum, and akinesis of the septum and posterior wall. The anterior wall is hypokinetic and in apical inferior wall is akinetic. 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 There is severe pulmonary hypertension. The right ventricular systolic pressure is estimated at 89 mmHg assuming a right atrial pressure of 15 mm Hg. The right ventricle is mildly dilated. The right ventricular systolic function is normal. There is moderate to severe mitral regurgitation. There is moderate biatrial enlargement. The patient was in third degree heart block during the exam. The heart rate ranged between 50-70 bpm during the study. No other echocardiographic abnormalities seen. Reading Physician:04: 50 PM Assessment & Plan Mr. Walsh is an 81-year-old male with type 2 diabetes mellitus, hypertension and CAD with history of MN presenting as a referral from [facility] for shortness of breath. 1. Acute on chronic systolic congestive heart failure exacerbation. Present on admission. Active -Chest x-ray with findings of moderate pulmonary edema. Clinically, patient with lower extremity edema and mild JVD. He continues to have dyspnea. He is currently on BiPAP. -Echocardiogram showed EF of 35-40% and severe pulmonary hypertension. -[place] 8784 [place] [address]. Lost 2.3 kg since yesterday but remains net positive 55332 mL. -Monitor I/O and daily weights -Continue nitroglycerin drip -Furosemide IV 10 mg/h drip -Metolazone 5 mg twice per day today -Potassium 40meq given once today -Monitor potassium level this evening again -Increased carvedilol 6.25 mg twice per day -Patient given 1 mg of magnesium yesterday -Discontinued isosorbide dinitrate for now 2. 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 Unknown acuity. Present on admission. Active. -Pacemaker placement 2 days ago 3. Left lower extremity DVT, acute. Present on admission. Active. -Doppler US showed an occlusive thrombus within the left superficial femoral vein, popliteal vein, and posterior tibial vein. -Hemoglobin and hematocrit stable -Heparin gtt resumed -Monitor for hematoma and bruising -Monitor CBC 4. Possible pulmonary embolism. Present on admission. Active -Doppler of lower extremities shows left lower extremity DVT -Heparin gtt resumed -V/Q scan was refused 5. Acute kidney injury on chronic kidney disease. Present on admission. Improving. -Chronic component as patient has longstanding hypertension and CHF and see above -Creatinine 1.70 initially, 2.09 today -Renal ultrasound shows mild cortical thinning and increased renal cortical echogenicity bilaterally -Avoid nephrotoxins -Hold home allopurinol for now. -Nephrology consulted and following. Their time and recommendations are appreciated. See #1 above. 6. 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 Present on admission. Improving. -Renal tubular acidosis, type 4. Likely secondary to chronic kidney disease. Notes from his primary care physician report CKD stage 3. Prior BUN 34, creatinine 1.41 on 03/22/2016. In 2013, BUN 33, creatinine 1.52. -Lactic acid within normal limits, no ketones but protein in the urine -Nephrology consulted and following. Their time and recommendations are appreciated. -Continue chlorthalidone -Follow with CMP 7. Hypertension, chronic. Present on admission -Hold Isosorbide nitrate 40 mg twice a day as patient is currently on a nitroglycerin drip -Held patient's home ANDREW inhibitor due to acute kidney injury. -Avoiding beta blockers, CCB due to heart block -Furosemide 40 mg IV BID discontinued and patient started on furosemide drip as above -Cardiology recommended hydralazine 50 mg every 8 hours for additional blood pressure control. -Chlorthalidone 25 mg once daily added to regimen 8. Bilateral lower leg and right upper extremity edema and erythema, acute. Present on admission. Improving. - Possible cellulitis. It may be stasis dermatitis from chronic venous congestion. See echocardiogram above. - Streptozyme and MRSA screen negative -US of right upper extremity was negative for DVT. -WBC 8.9, within normal limits -Infectious disease consulted. His time and recommendations are appreciated. -Ceftriaxone discontinued -Continue to monitor -Lotion to be applied as needed for dry skin 9. Hyperkalemia, acute. Present on admission. Improved. -Possibly related to acute kidney injury and metabolic acidosis -Patient received Kayexalate and Lasix in the ED -Follow with CMP 10. Coronary artery disease, chronic. Present on admission. -Troponin elevated but given SHMUEL and elevated BNP, it is likely from demand ischemia. Echocardiogram shows severe pulmonary hypertension. -Discontinue clopidogrel to help prevent worsening bruising -Stopped aspirin as pt reports not taking this at home 11. Acute stress reaction. Present on admission. Improved -Patient denies current suicidal ideation -Psychiatry consulted and their time and recommendations were appreciated. 12. Gastroesophageal reflux disease, chronic. Present on admission. -Continued home famotidine 13. Diabetes mellitus type II, diet controlled, chronic. Present on admission. -Sliding insulin scale -HgbA1c 7.1% VTE Prophylaxis: Other (Heparin gtt) Resuscitation Status: Limited Interventions (DNI) Limited Interventions: Compressions, Cardioversion/Defibrillation, BiPAP, Medications and IV Fluid Attending Statement The patient was seen and examined together with Dr. Jamison on 01/19/2017 and I agree with the history, exam and plan as outlined in the note above. . Valencia Jamison DO Jan 19, 2017 10:12 Milad Tucker MD Jan 21, 2017 08:46
[2017-01-19] MEDS: Nitroglycerin 50 mg/250 mL D5W Premix IV SCH (20:05)
[2017-01-20] VITALS (13 sets, daily range): BP systolic 118–147; BP diastolic 71–81; PULSE 74–93; RESP 18–30; O2SAT 94–97
--- NOTE | 2017-01-20 01:05 | NUR ---
P) Blood pressure/ care Titrating nitro to try to keep MAP between 70-90, currently at 20mcg/min, last BP 124/67 MAP 79, pt. and very specific about what care they will accept, refusing SCD's and repositioning, insulin, and sling. Massive bruising around pacer area extending down arm and torso, no hematoma noted, ice pack applied, heparin at 15mcg/kg and PTT within goal at 65.4. I) Close monitoring, encourage moving about in bed. E) Resting quietly with eyes closed, tolerating bipap tonight, refusing mepilex on nose but does have a bandaid for cushioning instead.
[2017-01-20] MEDS: Nitroglycerin 50 mg/250 mL D5W Premix IV SCH (02:51)
[2017-01-20] MEDS: Furosemide Inj 100 MG in 0.9% Sodium Chloride 90 ML IVPUSH SCH ×2 (02:51→13:13)
[2017-01-20 04:36] LABS: EOSINOPHILS % (AUTO) 1.3 % (0-5); MONOCYTES % (AUTO) 18.5 % (4-12); Mean Corpuscular Hemoglobin 28.9 pg (27.0-35.0); Mean Corpuscular Volume 86.5 fL (81-100); NEUTROPHILS % (AUTO) 61.5 % (40-74); Platelet Count 168 bil/L (150-400)
[2017-01-20 04:59] LABS: Magnesium 1.8 mg/dL (1.6-2.6)
[2017-01-20] MEDS: Insulin LISPRO 300 Unit/3 mL Inj SUBQ SCH ×4 (07:54→19:28)
--- NOTE | 2017-01-20 11:27 | NUR ---
Pacer Site During assessment this am left pacer site looked unchanged from yesterday, arm was out of sling, positioned arm back in sling and reminded him of his pacer precautions. At 1115 when rounding on pt I noticed quiet a bit of swelling more than what was this morning. Pt was again out of sling, using his arm to positioned himself. Dr. Duran was paged and called back asking for a sand bag to be placed. PA soon rounded after. Will continue to monitor.
--- NOTE | 2017-01-20 13:44 | PCM.PNMED ---
Subjective Date of Service Jan 20, 2017 Subjective He stated that he is breathing better, less LE swelling. (+) hematoma over pacemaker. Exam Vital Signs Vital Sign - Last Date Time Temp Pulse Resp B/P Pulse Ox O2 Delivery O2 Flow Rate FiO2 01/20/17 12:33 36.8 74 24 147/81 97 Nasal Cannula 6.00 01/20/17 04:39 45 Intake and Output 01/19/17 01/19/17 01/20/17 Cumulative From/Thru 15:00 23:00 07:00 01/09/17 17:14 - 01/20/17 05:08 Intake Total 1254 ml 466 ml 16727 ml Output Total 850 ml 900 ml 7503 ml Balance 404 ml -434 ml 29719 ml Intake Oral 822 ml 466 ml 9634 ml IV Total 432 ml 9326 ml Output Urine Total 850 ml 900 ml 7502 ml Estimated Blood Loss 1 ml # Voids 38 # Bowel Movements 0 13 Exam General: mild distress, tachypneic, on NC. Head: Normal Eyes: PERRLA, EOMI, Scleral Anicteric Nose: Mucous Membr Moist/[place] Mouth: Mucous Membr Moist/[place] Neck: Supple, (+) JVD. Chest & Lungs: coarse crackles bilaterally. left pacemaker, hematoma on left upper chest noted. Cardiovascular: Regular Rate/Rhythm Pulses: Normal carotid, radial, femoral, DP, PT Abdomen: Non-tender, Non-distended, Normoactive bowel tones, Soft Extremities: 1+ edema, peeling skin, erythematous LE left > right. Lab and Diagnostics Result Diagram: 01/20/1741901/20/17 042 X-Rays, CTs and MRIs PROCEDURE: US VEINOUS LEG DUPLEX UNILATERAL, LEFT IMPRESSION: Occlusive thrombus within the left superficial femoral vein, popliteal vein, and posterior tibial vein. These findings were discussed with Dr. Lopez at 7:45 PM by the automated equipment engineer technician. Approved by: Rosaura Angel M.D. on 01/09/2017 at 20:08 PROCEDURE: X-RAY CHEST ONE VIEW, PORTABLE IMPRESSION: 1. Low lung volumes and basilar opacities which may represent atelectasis, although aspiration/infection could also be considered in the differential. 2. Interstitial opacities and cardiomegaly suspicious for fluid overload. Approved by: Rosaura Angel M.D. on 01/09/2017 at 18:50 PROCEDURE: US RENAL SONOGRAM IMPRESSION: 1. Mild cortical thinning and increased renal cortical echogenicity bilaterally , compatible with medical renal disease. 2. No hydronephrosis. Approved by: Carissa Boyd M.D. on 01/10/2017 at 12:45 PROCEDURE: X-RAY CHEST ONE VIEW, PORTABLE IMPRESSION: Dual-chamber cardiac pacemaking device leads in normal position, generalized moderate pulmonary edema, small subpulmonic right pleural effusion is again seen. Approved by: Ermias Major M.D. on 01/17/2017 at 17:26 Cardiac Echo Impressions Echocardiogram Report Interpretation Summary The left ventricle is mildly dilated. The ejection fraction is estimated to be 35-40%. There is severe hypokinesis of the mid and distal septum, and akinesis of the septum and posterior wall. The anterior wall is hypokinetic and in apical inferior wall is akinetic. 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 There is severe pulmonary hypertension. The right ventricular systolic pressure is estimated at 89 mmHg assuming a right atrial pressure of 15 mm Hg. The right ventricle is mildly dilated. The right ventricular systolic function is normal. There is moderate to severe mitral regurgitation. There is moderate biatrial enlargement. The patient was in third degree heart block during the exam. The heart rate ranged between 50-70 bpm during the study. No other echocardiographic abnormalities seen. Reading Physician:04: 50 PM Assessment & Plan 1. SHMUEL on CKD secondary to ATN and CRS. 2. Worsening SOB, suspected acute on chronic systolic CHF/right sided HF/pulm HTN. 3. left LE DVT and venous stasis 4. 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 - complicated by hematoma. 5. HTN with hypertensive nephrosclerosis. 6. 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 plan: decrease lasix to 5 mg/hr. replace KCL. no urgent HD indicated at this moment. repeat BMP in am. VTE Prophylaxis: Other (Heparin gtt) Resuscitation Status: Limited Interventions (DNI) Limited Interventions: Compressions, Cardioversion/Defibrillation, BiPAP, Medications and IV Fluid Marisel Newman MD Jan 20, 2017 13:44
--- NOTE | 2017-01-20 15:06 | PROG NOTE ---
[address] [address] PROGRESS NOTE PATIENT: ALISA TERRAZAS : 1935 MR#: [id number] ADMIT: 01/09/2017 JOB ID: [id number] DATE: 01/20/2017 CARDIOLOGY PROGRESS NOTE: SUBJECTIVE: The patient states that he remains relatively comfortable, although had worsening of his pacemaker hematoma this morning after moving his arm and this is somewhat painful, although he states it is quite tolerable and not much different from yesterday. He denies any significant dyspnea and notes no significant improvement from yesterday. He has not ambulated and continues to deny any chest discomfort. His IV nitroglycerin has been discontinued and he has been started on oral nitrates. Nephrology service has reduced down his IV Lasix dose. PHYSICAL EXAMINATION: Elderly male in no distress. HR 74, BP 147/81, O2 saturation 97% on 6 L of nasal cannula. He has had a minimal diuresis over the last 24 hours and his weight remains unchanged. Lungs: Slight bronchial breath sounds bilaterally, but no appreciable rales or wheeze. CV: Regular rate and rhythm with frequent premature beats, with a 2/6 holosystolic murmur at the apex. JVP is difficult to assess but appears to be around 6-7 cm, likely improved from yesterday. Extremities: Trace bilateral edema also improved from yesterday. Abdomen: Soft, nondistended, nontender. The pacemaker site has a softball-sized hematoma but does not appear to be erythematous. A sandbag has been applied. LABORATORY: Hematocrit this morning remains stable at 36%. His BUN is 57 with a creatinine of 2.2, up from 51 and 2.1 yesterday. Potassium is 4.2 and his magnesium was 1.8. TELEMETRY: Shows sinus rhythm with ventricular pacing. With fairly frequent PVCs. IMPRESSION: 1. Probable acute on chronic systolic congestive heart failure. He appears to be much better compensated and I would consider reducing his diuretic regimen given his worsening renal insufficiency but I will defer his fluid management to the nephrology service. I would like to see further afterload reduction and I agree with starting him on long-acting nitrates and hydralazine with consideration for incremental advancement of his carvedilol as his blood pressure allows. Since this was increased yesterday, I will not increase it today, but would consider increasing it tomorrow. Once he is on a stable regimen, then I suspect that he can be discharged from a cardiovascular standpoint. 2. Acute renal failure. Being managed by the nephrology team. 3. Deep venous thrombosis. On anticoagulation. 4. Status post pacemaker for complete heart block. While he has had some enlargement of his hematoma, I suspect this is due to his movement of his arm. I have encouraged him to remain relatively sedentary and will continue with the weight on his wound. Given his DVT, I think that anticoagulation needs to be continued as his hematoma does not necessarily provide any significant risk as long as it stays stable. I will provide him with incentive spirometry given his sedentary bed-bound state. 5. Premature ventricular contractions. Likely due to some volume shifts. I will provide some magnesium supplementation, and again his carvedilol can be incrementally advanced if his ectopy appears to be escalating. PLAN: 1. Volume management per the Nephrology service, but I would consider reducing his diuretic regimen as I think that he is approaching euvolemia. 2. Consider an incremental advancement of his carvedilol for after load reduction. 3. Add magnesium supplementation. 4. Continue to leave a sandbag on his pacemaker wound site with immobilization of his left arm for at least another 24 hours, with monitoring of the hematoma size. Incentive spirometry will be provided. 5. Once he is on a stable oral regimen for his heart failure, I suspect that he can be discharged from a cardiovascular standpoint with followup with Dr. Gonzalez. At this point I would not pursue this an ischemic evaluation until his other issues have improved. TIME: I spent 40 minutes reviewing the medical record and examining the patient, discussing the therapeutic plan and documenting this, and answering he and his 's questions. LIN
--- NOTE | 2017-01-20 17:22 | NUR ---
Social Work: Continued Discharge Planning D: Pt discussed in am rounds. Pt is not medically stable for discharge at this time and continues to require increased 02 needs. PT was able to complete assessment with the pt on 01/19 with recommendation for SNF. Pt was only able to ambulate 3 feet and is requiring 1-2 person assist from public health staff nurse. [employer] attempted to meet with pt and at bedside. not present and pt does not wish to discuss discharge planning without her. Requested [employer] return when is at bedside. [employer] agreed. A: Pt who lives at home with spouse. P: [employer] to follow up with pt and spouse to discuss discharge recommendations for Skilled Rehab and continue to follow to assist with safe discharge planning. ELEAZAR Amdaor
--- NOTE | 2017-01-20 18:08 | PCM.PNMED ---
Subjective Date of Service Jan 20, 2017 Subjective Mr. Walsh is an 81-year-old male with type 2 diabetes mellitus, hypertension and CAD with history of [place] presenting as a referral from [facility] for shortness of breath. Patient is accompanied by his at bedside. Today, he states that he feels short of breath sometimes. He does not have chest , side, or leg pain. The pacemaker site has gotten bigger overnight. Exam Vital Signs Vital Sign - Last Date Time Temp Pulse Resp B/P Pulse Ox O2 Delivery O2 Flow Rate FiO2 01/20/17 09:09 Supplement Oxygen CPAP/BIPAP 01/20/17 09:09 36.5 89 29 127/71 95 6.00 01/20/17 04:39 45 Intake and Output 01/19/17 01/19/17 01/20/17 Cumulative From/Thru 15:00 23:00 07:00 01/09/17 17:14 - 01/20/17 05:08 Intake Total 1254 ml 466 ml 46349 ml Output Total 850 ml 900 ml 7503 ml Balance 404 ml -434 ml 13511 ml Intake Oral 822 ml 466 ml 9634 ml IV Total 432 ml 9326 ml Output Urine Total 850 ml 900 ml 7502 ml Estimated Blood Loss 1 ml # Voids 38 # Bowel Movements 0 13 Exam General: Elderly patient sitting upright in bed with nasal cannula in place. No acute distress, well-developed, well-nourished, appropriately interactive. HEENT: Normocephalic, atraumatic. External ears without defect. Pupils equal, round, and reactive to light. Oral mucosa pink with dry mucosa. Cardiovascular: Regular rate and rhythm. No murmurs, rubs, or gallops appreciated Pulmonary: Diffuse crackles bilaterally with wheezing or rhonchi. Increased respiratory effort with use of accessory muscles. Pacemaker site with palpable hematoma. Ecchymosis extending from incision site to left flank. Abdomen: Bowel tones present. Soft, nontender, nondistended. Extremities: Left lower extremity with mild pitting edema, swelling and mild erythema, improving, with dry skin. Right lower extremity with trace pitting edema, swelling and mild erythema limited to inferior mcgee, improving, with dry skin. Onychomycosis of bilateral toenails. Erythema and edema of right upper arm , improving compared to pen line. Neurological: Cranial nerves grossly intact. Normal muscle strength, tone, and bulk. Psychiatric: Normal mood and affect. Alert and oriented to person, place, and time. IVs and Medications Medications Reviewed: Medications were reviewed in detail Lab and Diagnostics Result Diagram: 01/20/1741901/20/17419 X-Rays, CTs and MRIs PROCEDURE: US VEINOUS LEG DUPLEX UNILATERAL, LEFT IMPRESSION: Occlusive thrombus within the left superficial femoral vein, popliteal vein, and posterior tibial vein. These findings were discussed with Dr. Lopez at 7:45 PM by the cardiac technician. Approved by: Rosaura Angel M.D. on 01/09/2017 at 20:08 PROCEDURE: X-RAY CHEST ONE VIEW, PORTABLE IMPRESSION: 1. Low lung volumes and basilar opacities which may represent atelectasis, although aspiration/infection could also be considered in the differential. 2. Interstitial opacities and cardiomegaly suspicious for fluid overload. Approved by: Rosaura Angel M.D. on 01/09/2017 at 18:50 PROCEDURE: US RENAL SONOGRAM IMPRESSION: 1. Mild cortical thinning and increased renal cortical echogenicity bilaterally , compatible with medical renal disease. 2. No hydronephrosis. Approved by: Carissa Boyd M.D. on 01/10/2017 at 12:45 PROCEDURE: X-RAY CHEST ONE VIEW, PORTABLE IMPRESSION: Dual-chamber cardiac pacemaking device leads in normal position, generalized moderate pulmonary edema, small subpulmonic right pleural effusion is again seen. Approved by: Ermias Major M.D. on 01/17/2017 at 17:26 Cardiac Echo Impressions Echocardiogram Report Interpretation Summary The left ventricle is mildly dilated. The ejection fraction is estimated to be 35-40%. There is severe hypokinesis of the mid and distal septum, and akinesis of the septum and posterior wall. The anterior wall is hypokinetic and in apical inferior wall is akinetic. 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 There is severe pulmonary hypertension. The right ventricular systolic pressure is estimated at 89 mmHg assuming a right atrial pressure of 15 mm Hg. The right ventricle is mildly dilated. The right ventricular systolic function is normal. There is moderate to severe mitral regurgitation. There is moderate biatrial enlargement. The patient was in third degree heart block during the exam. The heart rate ranged between 50-70 bpm during the study. No other echocardiographic abnormalities seen. Reading Physician:04: 50 PM Assessment & Plan Mr. Walsh is an 81-year-old male with type 2 diabetes mellitus, hypertension and CAD with history of [place] presenting as a referral from [facility] for shortness of breath. 1. Acute on chronic systolic congestive heart failure exacerbation. Present on admission. Active -Chest x-ray with findings of moderate pulmonary edema. Clinically, patient with lower extremity edema and mild JVD. He continues to have dyspnea. He is currently on BiPAP. -Echocardiogram showed EF of 35-40% and severe pulmonary hypertension. -[place] 8784 [place] [address]. Lost 2.3 kg since yesterday but remains net positive 39564 mL. -Monitor I/O and daily weights -Furosemide IV decreased to 5 mg/h drip -Metolazone 5 mg twice per day yesterday -Potassium 40meq given once yesterday -Monitor potassium level -Increased carvedilol to 6.25 mg twice per day yesterday, consider increasing tomorrow -Discontinued nitroglycerin drip this evening when first dose of isosorbide dinitrate given -Resumed isosorbide dinitrate 40 mg BID starting with evening dose tonight 2. 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 Unknown acuity. Present on admission. Active. -Pacemaker placement 2 days ago -Sandbag was placed today for pressure on pacemaker site hematoma. Patient was given a reminder to keep left arm in sling and not to move left arm. 3. Left lower extremity DVT, acute. Present on admission. Active. -Doppler US showed an occlusive thrombus within the left superficial femoral vein, popliteal vein, and posterior tibial vein. -Hemoglobin and hematocrit stable -Heparin gtt resumed -Monitor CBC 4. Possible pulmonary embolism. Present on admission. Active -Doppler of lower extremities shows left lower extremity DVT -Heparin gtt resumed -V/Q scan was refused 5. Acute kidney injury on chronic kidney disease. Present on admission. Improving. -Chronic component as patient has longstanding hypertension and CHF and see above -Creatinine 1.70 initially, 2.23 today -Renal ultrasound shows mild cortical thinning and increased renal cortical echogenicity bilaterally -Avoid nephrotoxins -Hold home allopurinol for now. -Nephrology consulted and following. Their time and recommendations are appreciated. See #1 above. 6. 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 Present on admission. Improving. -Renal tubular acidosis, type 4. Likely secondary to chronic kidney disease. Notes from his primary care physician report CKD stage 3. Prior BUN 34, creatinine 1.41 on 03/22/2016. In 2012, BUN 33, creatinine 1.52. -Lactic acid within normal limits, no ketones but protein in the urine -Nephrology consulted and following. Their time and recommendations are appreciated. -Continue chlorthalidone -Follow with CMP 7. Hypertension, chronic. Present on admission -Hold Isosorbide nitrate 40 mg twice a day as patient is currently on a nitroglycerin drip -Held patient's home ANDREW inhibitor due to acute kidney injury. -Avoiding beta blockers, CCB due to heart block -Furosemide 40 mg IV BID discontinued and patient started on furosemide drip as above -Cardiology recommended hydralazine 50 mg every 8 hours for additional blood pressure control. -Chlorthalidone 25 mg once daily added to regimen 8. Bilateral lower leg and right upper extremity edema and erythema, acute. Present on admission. Improving. - Possible cellulitis. It may be stasis dermatitis from chronic venous congestion. See echocardiogram above. - Streptozyme and MRSA screen negative -US of right upper extremity was negative for DVT. -WBC 8.9, within normal limits -Infectious disease consulted. His time and recommendations are appreciated. -Ceftriaxone discontinued -Continue to monitor -Lotion to be applied as needed for dry skin 9. Hyperkalemia, acute. Present on admission. Improved. -Possibly related to acute kidney injury and metabolic acidosis -Patient received Kayexalate and Lasix in the ED -Follow with CMP 10. Coronary artery disease, chronic. Present on admission. -Troponin elevated but given SHMUEL and elevated BNP, it is likely from demand ischemia. Echocardiogram shows severe pulmonary hypertension. -Discontinue clopidogrel to help prevent worsening bruising -Stopped aspirin as pt reports not taking this at home 11. Acute stress reaction. Present on admission. Improved -Patient denied current suicidal ideation -Psychiatry consulted and their time and recommendations were appreciated. 12. Gastroesophageal reflux disease, chronic. Present on admission. -Continued home famotidine 13. Diabetes mellitus type II, diet controlled, chronic. Present on admission. -Sliding insulin scale -HgbA1c 7.1% VTE Prophylaxis: Other (Heparin gtt) Resuscitation Status: Limited Interventions (DNI) Limited Interventions: Compressions, Cardioversion/Defibrillation, BiPAP, Medications and IV Fluid Attending Statement The patient was seen and examined together with Dr. Jamison on 01/20/2017 and I agree with the history, exam and plan as outlined in the note above. . Valencia Jamison DO Jan 20, 2017 10:45 Milad Tucker MD Jan 21, 2017 08:45
[2017-01-20] MEDS: Isosorbide Dinitrate 40 mg ER24 Tablet PO SCH (19:55)
[2017-01-21] VITALS (13 sets, daily range): BP systolic 107–145; BP diastolic 57–82; PULSE 72–89; RESP 20–27; O2SAT 95–97
[2017-01-21] MEDS: Heparin 25K Unit/500mL 0.45 NS 25,000 UNIT in IV Premix 1 EACH IV SCH ×2 (00:14→20:09)
--- NOTE | 2017-01-21 05:01 | NUR ---
Cardiac/ Respiratory Tele SR with PVC, PAC. Pacer site remains swollen to softball sized- swelling outlined and frequently assessed- has not changed overnight. severe bruising noted down arm and left side. PRN PO Tylenol given for discomfort. Nitro gtt titrated off when HS Imdur given BP has been stable- SBP 130-110. Pt tolerating BIPAP @45% overnight- resting comfortably. Pt intermittently off BIPAP on 6 L NC- tolerates for a few minutes and then breathing becomes somewhat labored. Sp02 maintained in the 90s overnight.
[2017-01-21 05:28] LABS: EOSINOPHILS % (AUTO) 2.4 % (0-5); Mean Corpuscular Hemoglobin 29.5 pg (27.0-35.0); Mean Corpuscular Volume 90.7 fL (81-100); NEUTROPHILS % (AUTO) 56.1 % (40-74); Platelet Count 136 bil/L (150-400)
[2017-01-21 06:07] LABS: Magnesium 1.9 mg/dL (1.6-2.6)
[2017-01-21] MEDS: Furosemide Inj 100 MG in 0.9% Sodium Chloride 90 ML IVPUSH SCH (06:35)
[2017-01-21] MEDS: Insulin LISPRO 300 Unit/3 mL Inj SUBQ SCH ×4 (07:33→21:33)
[2017-01-21] MEDS: Isosorbide Dinitrate 40 mg ER24 Tablet PO SCH (09:23)
--- NOTE | 2017-01-21 13:00 | NUR ---
[facility] Signed
--- NOTE | 2017-01-21 13:47 | PCM.PNMED ---
Subjective Date of Service Jan 21, 2017 Subjective LE swelling has improved significantly. Serum creatinine is trending up. I&O 2602 / 1650. His is concerned about his deconditioning. Pending PT today. Exam Vital Signs Vital Sign - Last Date Time Temp Pulse Resp B/P Pulse Ox O2 Delivery O2 Flow Rate FiO2 01/21/17 12:02 36.6 85 25 125/72 97 Nasal Cannula 6.00 01/21/17 03:20 45 Intake and Output 01/20/17 01/20/17 01/21/17 Cumulative From/Thru 15:00 23:00 07:00 01/09/17 17:14 - 01/21/17 06:39 Intake Total 610 ml 1526 ml 572 ml 95298 ml Output Total 750 ml 550 ml 8803 ml Balance 610 ml 776 ml 22 ml 59203 ml Intake Oral 100 ml 1080 ml 200 ml 98368 ml IV Total 510 ml 446 ml 372 ml 27483 ml Output Urine Total 750 ml 550 ml 8802 ml Estimated Blood Loss 1 ml # Voids 38 # Bowel Movements 13 Exam General: mild distress, tachypneic, on NC. Head: Normal Eyes: PERRLA, EOMI, Scleral Anicteric Nose: Mucous Membr Moist/[place] Mouth: Mucous Membr Moist/[place] Neck: Supple, (+) JVD. Chest & Lungs: coarse crackles bilaterally. left pacemaker, hematoma on left upper chest noted. Cardiovascular: Regular Rate/Rhythm Pulses: Normal carotid, radial, femoral, DP, PT Abdomen: Non-tender, Non-distended, Normoactive bowel tones, Soft Extremities: 1+ edema, peeling skin, erythematous LE left > right. Lab and Diagnostics Result Diagram: 01/21/1751701/21/17517 X-Rays, CTs and MRIs PROCEDURE: US VEINOUS LEG DUPLEX UNILATERAL, LEFT IMPRESSION: Occlusive thrombus within the left superficial femoral vein, popliteal vein, and posterior tibial vein. These findings were discussed with Dr. Lopez at 7:45 PM by the clinical pharmacy technician. Approved by: Rosaura Angel M.D. on 01/09/2017 at 20:08 PROCEDURE: X-RAY CHEST ONE VIEW, PORTABLE IMPRESSION: 1. Low lung volumes and basilar opacities which may represent atelectasis, although aspiration/infection could also be considered in the differential. 2. Interstitial opacities and cardiomegaly suspicious for fluid overload. Approved by: Rosaura Angel M.D. on 01/09/2017 at 18:50 PROCEDURE: US RENAL SONOGRAM IMPRESSION: 1. Mild cortical thinning and increased renal cortical echogenicity bilaterally , compatible with medical renal disease. 2. No hydronephrosis. Approved by: Carissa Boyd M.D. on 01/10/2017 at 12:45 PROCEDURE: X-RAY CHEST ONE VIEW, PORTABLE IMPRESSION: Dual-chamber cardiac pacemaking device leads in normal position, generalized moderate pulmonary edema, small subpulmonic right pleural effusion is again seen. Approved by: Ermias Major M.D. on 01/17/2017 at 17:26 Cardiac Echo Impressions Echocardiogram Report Interpretation Summary The left ventricle is mildly dilated. The ejection fraction is estimated to be 35-40%. There is severe hypokinesis of the mid and distal septum, and akinesis of the septum and posterior wall. The anterior wall is hypokinetic and in apical inferior wall is akinetic. 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 There is severe pulmonary hypertension. The right ventricular systolic pressure is estimated at 89 mmHg assuming a right atrial pressure of 15 mm Hg. The right ventricle is mildly dilated. The right ventricular systolic function is normal. There is moderate to severe mitral regurgitation. There is moderate biatrial enlargement. The patient was in third degree heart block during the exam. The heart rate ranged between 50-70 bpm during the study. No other echocardiographic abnormalities seen. Reading Physician:04: 50 PM Assessment & Plan 1. SHMUEL on CKD secondary to ATN and CRS. - euvolemic, rising serum creatinine. 2. Acute on chronic systolic CHF/right sided HF/pulm HTN. 3. left LE DVT and venous stasis 4. 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 - complicated by hematoma. 5. HTN with hypertensive nephrosclerosis. 6. 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 plan: d/c lasix gtt. switch to PO torsemide. no urgent HD indicated at this moment. repeat BMP in am. VTE Prophylaxis: Other (Heparin gtt) Resuscitation Status: Limited Interventions (DNI) Limited Interventions: Compressions, Cardioversion/Defibrillation, BiPAP, Medications and IV Fluid Marisel Newman MD Jan 21, 2017 13:47
--- NOTE | 2017-01-21 15:01 | PCM.PNMED ---
Subjective Date of Service Jan 21, 2017 Subjective Overnight: Pt was resting well while on BiPAP, took it off intermittently but was dyspneic without the BiPAP. Telemetry showed NSR with occasional PVCs and PACs. Today: He continues to be on the BiPAP, reporting mild shortness of breath. He reports swelling around the left shoulder pacer site. He denies palpitations, chest pain, fevers, or chills. Exam Vital Signs Vital Sign - Last Date Time Temp Pulse Resp B/P Pulse Ox O2 Delivery O2 Flow Rate FiO2 01/21/17 12:02 36.6 85 25 125/72 97 Nasal Cannula 6.00 01/21/17 03:20 45 Intake and Output 01/20/17 01/20/17 01/21/17 Cumulative From/Thru 15:00 23:00 07:00 01/09/17 17:14 - 01/21/17 06:39 Intake Total 610 ml 1526 ml 572 ml 32504 ml Output Total 750 ml 550 ml 8803 ml Balance 610 ml 776 ml 22 ml 74346 ml Intake Oral 100 ml 1080 ml 200 ml 38839 ml IV Total 510 ml 446 ml 372 ml 74623 ml Output Urine Total 750 ml 550 ml 8802 ml Estimated Blood Loss 1 ml # Voids 38 # Bowel Movements 13 Exam General: Elderly patient sitting upright in bed. No acute distress, well- developed, well-nourished, appropriately interactive. On BiPAP, some mild respiratory exertion but appears comfortable. HEENT: Normocephalic, atraumatic. External ears without defect. Pupils equal, round, and reactive to light. Oral mucosa pink with dry mucosa. Cardiovascular: Regular rate and rhythm. No murmurs, rubs, or gallops appreciated Pulmonary: Diffuse crackles bilaterally with wheezing or rhonchi. Increased respiratory effort with use of accessory muscles. Pacemaker site with palpable hematoma. Ecchymosis extending from incision site to left flank. Abdomen: Bowel tones present. Soft, nontender, nondistended. Extremities: Left lower extremity with mild pitting edema, swelling and mild erythema, improving, with dry skin. Right lower extremity with trace pitting edema, swelling and mild erythema limited to inferior mcgee, improving, with dry skin. Onychomycosis of bilateral toenails. Large softball sized hematoma on right shoulder. Neurological: Cranial nerves grossly intact. Normal muscle strength, tone, and bulk. Psychiatric: Normal mood and affect. Alert and oriented to person, place, and time. Lab and Diagnostics Result Diagram: 01/21/1751701/21/17517 X-Rays, CTs and MRIs PROCEDURE: US VEINOUS LEG DUPLEX UNILATERAL, LEFT IMPRESSION: Occlusive thrombus within the left superficial femoral vein, popliteal vein, and posterior tibial vein. These findings were discussed with Dr. Lopez at 7:45 PM by the health care sanitary technician. Approved by: Rosaura Anegl M.D. on 01/09/2017 at 20:08 PROCEDURE: X-RAY CHEST ONE VIEW, PORTABLE IMPRESSION: 1. Low lung volumes and basilar opacities which may represent atelectasis, although aspiration/infection could also be considered in the differential. 2. Interstitial opacities and cardiomegaly suspicious for fluid overload. Approved by: Rosaura Angel M.D. on 01/09/2017 at 18:50 PROCEDURE: US RENAL SONOGRAM IMPRESSION: 1. Mild cortical thinning and increased renal cortical echogenicity bilaterally , compatible with medical renal disease. 2. No hydronephrosis. Approved by: Carissa Boyd M.D. on 01/10/2017 at 12:45 PROCEDURE: X-RAY CHEST ONE VIEW, PORTABLE IMPRESSION: Dual-chamber cardiac pacemaking device leads in normal position, generalized moderate pulmonary edema, small subpulmonic right pleural effusion is again seen. Approved by: Ermias Major M.D. on 01/17/2017 at 17:26 Cardiac Echo Impressions Echocardiogram Report Interpretation Summary The left ventricle is mildly dilated. The ejection fraction is estimated to be 35-40%. There is severe hypokinesis of the mid and distal septum, and akinesis of the septum and posterior wall. The anterior wall is hypokinetic and in apical inferior wall is akinetic. 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 There is severe pulmonary hypertension. The right ventricular systolic pressure is estimated at 89 mmHg assuming a right atrial pressure of 15 mm Hg. The right ventricle is mildly dilated. The right ventricular systolic function is normal. There is moderate to severe mitral regurgitation. There is moderate biatrial enlargement. The patient was in third degree heart block during the exam. The heart rate ranged between 50-70 bpm during the study. No other echocardiographic abnormalities seen. Reading Physician:04: 50 PM Assessment & Plan Mr. Walsh is an 81-year-old male with type 2 diabetes mellitus, hypertension and CAD with history of [place] presenting as a referral from [facility] for shortness of breath. 1. Acute on chronic systolic congestive heart failure exacerbation. Present on admission. Active -CXR showed moderate pulmonary edema. Clinically, patient with lower extremity edema and mild JVD. He continues to have dyspnea. He is currently on BiPAP. -Echocardiogram showed EF of 35-40% and severe pulmonary hypertension. -[place] 8784 [place] [address]. He is still positive 12.8 L today. -Monitor I/O and daily weights -Carvedilol 6.25 mg BID -Lasix gtt stopped. Switched to torsemide 40 mg daily PO. -Switched isosorbide dinitrate to isosorbide mononitrate 30 mg BID -Discontinued nitroglycerin drip -Metolazone stopped. 2. 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 Unknown acuity. Present on admission. Active. -Pacemaker placement 01/17/17 -Sandbag was placed for pressure on pacemaker site hematoma. Patient was given a reminder to keep left arm in sling and not to move left arm. 3. Left lower extremity DVT, acute. Present on admission. Active. -Doppler US showed an occlusive thrombus within the left superficial femoral vein, popliteal vein, and posterior tibial vein. -Hemoglobin and hematocrit stable -Heparin gtt resumed -Monitor CBC 4. Possible pulmonary embolism. Present on admission. Active -Doppler of lower extremities shows left lower extremity DVT -Heparin gtt resumed -V/Q scan was refused 5. Acute kidney injury on chronic kidney disease. Present on admission. Improving. -Chronic component as patient has longstanding hypertension and CHF and see above -Creatinine 1.70 initially, 2.23 today -Renal ultrasound shows mild cortical thinning and increased renal cortical echogenicity bilaterally -Avoid nephrotoxins -Hold home allopurinol for now. -Nephrology consulted and following. Their time and recommendations are appreciated. See #1 above. 6. 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 Present on admission. Improving. -Renal tubular acidosis, type 4. Likely secondary to chronic kidney disease. Notes from his primary care physician report CKD stage 3. Prior BUN 34, creatinine 1.41 on 03/22/2016. In 2013, BUN 33, creatinine 1.52. -Lactic acid within normal limits, no ketones but protein in the urine -Nephrology consulted and following. Their time and recommendations are appreciated. -Continue chlorthalidone -Follow with CMP 7. Hypertension, chronic. Present on admission -Hold Isosorbide nitrate 40 mg twice a day as patient is currently on a nitroglycerin drip -Held patient's home ANDREW inhibitor due to acute kidney injury. -Avoiding beta blockers, CCB due to heart block -Furosemide 40 mg IV BID discontinued and patient started on furosemide drip as above -Cardiology recommended hydralazine 50 mg every 8 hours for additional blood pressure control. -Chlorthalidone 25 mg once daily added to regimen 8. Bilateral lower leg and right upper extremity edema and erythema, acute. Present on admission. Improving. - Possible cellulitis. It may be stasis dermatitis from chronic venous congestion. See echocardiogram above. - Streptozyme and MRSA screen negative -US of right upper extremity was negative for DVT. -WBC 8.9, within normal limits -Infectious disease consulted. His time and recommendations are appreciated. -Ceftriaxone discontinued -Continue to monitor -Lotion to be applied as needed for dry skin 9. Hyperkalemia, acute. Present on admission. Improved. -Possibly related to acute kidney injury and metabolic acidosis -Patient received Kayexalate and Lasix in the ED -Follow with CMP 10. Coronary artery disease, chronic. Present on admission. -Troponin elevated but given SHMUEL and elevated BNP, it is likely from demand ischemia. Echocardiogram shows severe pulmonary hypertension. -Discontinue clopidogrel to help prevent worsening bruising -Stopped aspirin as pt reports not taking this at home 11. Acute stress reaction. Present on admission. Improved -Patient denied current suicidal ideation -Psychiatry consulted and their time and recommendations were appreciated. 12. Gastroesophageal reflux disease, chronic. Present on admission. -Continued home famotidine 13. Diabetes mellitus type II, diet controlled, chronic. Present on admission. -Sliding insulin scale -HgbA1c 7.1% VTE Prophylaxis: Other (Heparin gtt) Resuscitation Status: Limited Interventions (DNI) Limited Interventions: Compressions, Cardioversion/Defibrillation, BiPAP, Medications and IV Fluid Attending Statement The patient was seen and examined together with Dr. Stephens on 01/21/2017 and I agree with the history, exam and plan as outlined in the note above. . Nolberto Stephens Jan 21, 2017 15:01 Milad Tucker MD Feb 03, 2017 17:13
--- NOTE | 2017-01-21 15:26 | NUR ---
Social Work: Continued Discharge Planning D: Pt is on day 12 of hospitalization. Pt has required increase oxygen demands and developed complications around the site of his pacemaker. Pt is not yet medically stable for discharge. Pt discussed in am rounds. Pt continues to require 2person assist with PT recommendations for SNF. REEL CUTTER met with pt and at bedside to discuss discharge planning. REEL CUTTER reviewed pt's current PT evaluation and recommendations. Pt's is adamant that pt's decrease in functioning is simply because staff will not ambulate the pt. REEL CUTTER validated spouse's observations and also informed her that due to his increasing oxygen demands, pt is not safe for long periods of ambulation. Spouse disagrees and believes pt should be ambulating the halls. REEL CUTTER reviewed pt's discharge needs and recommendation for SNF. Pt and spouse both declined SNF even after REEL CUTTER reviewed the high risks of going home without improved functioning. Spouse and pt show very poor insight into pt's current ambulatory abilities, new oxygen needs and how the two are connected. As they are unwilling to consider SNF, REEL CUTTER suggested home health which they are receptive to. HH Choice List provided along with information on each HH company (per spouse requests). She would like to review and provide her preference tomorrow. REEL CUTTER discussed durable medical equipment and getting the pt a FWW. Pt and feel that this would be very helpful and would like a FWW and a cane delivered to the pt's bedside. They are willing to pay privately for both items. REEL CUTTER obtained script from and faxed to [facility] for delivery on Sunday. Pt also inquiring about home 02. REEL CUTTER explained process and referral to be made by RT. Both he and spouse are receptive to having home 02. A: Pt who was previously I but with increased oxygen needs and decreased ambulatory abilities. P: Anticipate pt to discharge home with home health; REEL CUTTER to follow up with pt's about preference prior to d/c. F2F in folder for signature. REEL CUTTER to confirm delivery of DME prior to d/c. ELEAZAR Amador
--- NOTE | 2017-01-21 18:37 | NUR ---
Respiratory Pt on Bipap most of shift. Switches to 5L NC during meals, but unable to tolerate long periods of time without BIPAP. Pt becomes tachypneic, with accessory muscle use.Q2h turns, and frequent rounding continues. Pts at bedside assisting with care and feeding. Mepilex in place on sacrum as well as on bridge of nose.
[2017-01-21] MEDS: Nitroglycerin 50 mg/250 mL D5W Premix IV SCH (19:35)
[2017-01-21] MEDS: Isosorbide Mononitrate 30 mg ER24 Tablet PO SCH (20:39)
[2017-01-22] VITALS (12 sets, daily range): BP systolic 120–131; BP diastolic 73–78; PULSE 63–77; RESP 20–27; O2SAT 96–98
[2017-01-22 04:14] LABS: BASOPHILS % (AUTO) 1.2 % (0-3); EOSINOPHILS % (AUTO) 0.9 % (0-5); MONOCYTES % (AUTO) 19.7 % (4-12); Mean Corpuscular Hemoglobin 29.1 pg (27.0-35.0); Mean Corpuscular Volume 90.3 fL (81-100); NEUTROPHILS % (AUTO) 58.6 % (40-74); Platelet Count 145 bil/L (150-400)
--- NOTE | 2017-01-22 06:43 | NUR ---
Hematoma / Tele Left chest hematoma still measures 13 X 13 cm all night. Island dressing intact with old shadow drainage noted, no new drainage noted. Left arm in sling. Ice packs PRN for comfort. Left arm/shoulder elevated on pillow. No c/o cardiac chest pain, Tele 100% V-Paced in the 70-80s with occ PVCs. VS stable and afebrile.
[2017-01-22] MEDS: Insulin LISPRO 300 Unit/3 mL Inj SUBQ SCH ×4 (08:00→20:43)
[2017-01-22] MEDS: Isosorbide Mononitrate 30 mg ER24 Tablet PO SCH ×2 (08:38→20:42)
--- NOTE | 2017-01-22 10:00 | NUR ---
Hematoma: 0700 L upper chest hematoma measured 13cm by 13cm. At 0830, hematoma measured at 13cm by 14cm, HH trending down. MD aware, Heparin gtt stopped per MD orders for approx 60 minutes. Pressure dressing applied by Cardiology, 5lb wt applied per Cardiology recommendation. Heparin gtt restarted at 1000. Repeat CBC ordered for 1300, care ongoing. Addendum: 01/22/17 at 1211 by WOLF LOPEZ RN 1200 L upper chest hematoma measures 15cm by 14cm, despite pressure dressing and 5lb weight. notified. Heparin gtt stopped again. Cardiology will reevaluate hematoma this afternoon for possible evacuation.
--- NOTE | 2017-01-22 11:17 | DRSVH ---
PROCEDURE: X-RAY CHEST ONE VIEW, PORTABLE ([id number]) INDICATIONS: INCREASED WORK OF BREATHING, L CHEST HEMATOMA TECHNIQUE: One view of the chest was acquired. COMPARISON: [facility], CR, XR CHEST 1VW (PORTABLE), 01/18/2017, 6:24. FINDINGS: Surgical changes and devices: Stable positioning of dual chamber left cardiac pacer. Lungs and pleura: Lung volumes are low and there has been interval increase in mid/bibasilar patchy a irspace opacities. Small pleural effusions unchanged. No pneumothorax. Mediastinum: Mediastinal contours appear normal. Heart size is normal. Bones and chest wall: No suspicious bony lesions. Overlying soft tissues appear unremarkable. IMPRESSION: 1. Interval increase in mid/basilar patchy airspace opacities consistent with worsening atelectasis, aspiration and/or pneumonia. Recommend clinical correlation. 2. Small pleural effusions redemonstrated. Dictated by: Oscar Holder RRA Interpreted: Tracy Carr MD on 01/22/2017 at 11:16 Transcribed by: DES on 01/22/2017 at 11:17 Approved by: Tracy Carr MD, PhD on 01/22/2017 at 11:47
--- NOTE | 2017-01-22 11:47 | NUR ---
Wound Care Wound evaluation order received, pt seen at bedside. Pt is wearing a cpap machine and there is a modified mepilex dressing on to protect the bridge of his nose, he has a small abrasion at the right nostril. When patient is turned to right sidelying he is noted to have a reddened but blanchable sacrum and a small 1 cm x 1 cm x 0.1 cm stage 2 pressure at his left buttock, a mepilex dressing is placed. Penis is excoriated at the foreskin underside at 12:00 o'clock, he does have a catheter fixative device in place so I am unsure of this skin breakdowns etiology, may be related to moisture, no dressing needed here, well vascularized should get better quickly, can be wiped with shield wipes.
--- NOTE | 2017-01-22 12:11 | NUR ---
Family/behavior: Pt refuses to allow for repositioning, preferring supine positioning with HOB at approx 45 degrees, does allow heels to be floated. is adamant that pt have his pillows arranged lengthwise, when pillows are placed per nursing staff removes them and places them how she likes. Extensive discussion with pt/spouse about pressure ulcer prevention, pt/spouse refuse to allow for alternate positioning. Care ongoing.
--- NOTE | 2017-01-22 13:11 | PCM.PNMED ---
Subjective Date of Service Jan 22, 2017 Subjective Overnight: Pt was on BiPAP, took it off intermittently. Telemetry showed NSR in 60-70swith occasional PVC. Today: He is wearing BiPAP and resting. He continues to have dyspnea. The pacemaker site continues to swell. Exam Vital Signs Vital Sign - Last Date Time Temp Pulse Resp B/P Pulse Ox O2 Delivery O2 Flow Rate FiO2 01/22/17 04:15 77 22 97 45 01/22/17 03:31 36.7 129/73 BiPAP 01/21/17 20:22 6.00 Intake and Output 01/21/17 01/21/17 01/22/17 Cumulative From/Thru 15:00 23:00 07:00 01/09/17 17:14 - 01/22/17 06:35 Intake Total 964 ml 632 ml 94026 ml Output Total 600 ml 325 ml 9728 ml Balance 364 ml 307 ml 57145 ml Intake Oral 436 ml 386 ml 08559 ml IV Total 528 ml 246 ml 97783 ml Output Urine Total 600 ml 325 ml 9727 ml Estimated Blood Loss 1 ml # Voids 38 # Bowel Movements 13 Exam General: Elderly patient sitting upright in bed with BiPAP in place and sleeping. No acute distress, well-developed, well-nourished, appropriately interactive. HEENT: Normocephalic, atraumatic. External ears without defect. Pupils equal, round, and reactive to light. Oral mucosa pink with dry mucosa. Cardiovascular: Regular rate and rhythm. No murmurs, rubs, or gallops appreciated Pulmonary: Diffuse crackles bilaterally with wheezing or rhonchi. Increased respiratory effort with use of accessory muscles. Pacemaker site with palpable hematoma softball sized that is not actively bleeding with pressure dressing in place. Ecchymosis extending from incision site to left flank and across chest. Abdomen: Bowel tones present. Soft, nontender, nondistended. Extremities: Left lower extremity with mild pitting edema and mild erythema, improving, with dry skin. Right lower extremity with trace pitting edema limited to inferior mcgee, improving, with dry skin. Onychomycosis of bilateral toenails. Neurological: Cranial nerves grossly intact. Normal muscle strength, tone, and bulk. Psychiatric: Normal mood and affect. Alert and oriented to person, place, and time. IVs and Medications Medications Reviewed: Medications were reviewed in detail Lab and Diagnostics Result Diagram: 01/22/17 0335 01/22/17 0335 X-Rays, CTs and MRIs PROCEDURE: US VEINOUS LEG DUPLEX UNILATERAL, LEFT IMPRESSION: Occlusive thrombus within the left superficial femoral vein, popliteal vein, and posterior tibial vein. These findings were discussed with Dr. Lopez at 7:45 PM by the quality assurance qa lab technician. Approved by: Rosaura Angel M.D. on 01/09/2017 at 20:08 PROCEDURE: X-RAY CHEST ONE VIEW, PORTABLE IMPRESSION: 1. Low lung volumes and basilar opacities which may represent atelectasis, although aspiration/infection could also be considered in the differential. 2. Interstitial opacities and cardiomegaly suspicious for fluid overload. Approved by: Rosaura Angel M.D. on 01/09/2017 at 18:50 PROCEDURE: US RENAL SONOGRAM IMPRESSION: 1. Mild cortical thinning and increased renal cortical echogenicity bilaterally , compatible with medical renal disease. 2. No hydronephrosis. Approved by: Carissa Boyd M.D. on 01/10/2017 at 12:45 PROCEDURE: X-RAY CHEST ONE VIEW, PORTABLE IMPRESSION: Dual-chamber cardiac pacemaking device leads in normal position, generalized moderate pulmonary edema, small subpulmonic right pleural effusion is again seen. Approved by: Ermias Major M.D. on 01/17/2017 at 17:26 PROCEDURE: X-RAY CHEST ONE VIEW, PORTABLE IMPRESSION: 1. Interval increase in mid/basilar patchy airspace opacities consistent with worsening atelectasis, aspiration and/or pneumonia. Recommend clinical correlation. 2. Small pleural effusions redemonstrated. Approved by: Tracy Carr MD, PhD on 01/22/2017 at 11:47 Cardiac Echo Impressions Echocardiogram Report Interpretation Summary The left ventricle is mildly dilated. The ejection fraction is estimated to be 35-40%. There is severe hypokinesis of the mid and distal septum, and akinesis of the septum and posterior wall. The anterior wall is hypokinetic and in apical inferior wall is akinetic. 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 There is severe pulmonary hypertension. The right ventricular systolic pressure is estimated at 89 mmHg assuming a right atrial pressure of 15 mm Hg. The right ventricle is mildly dilated. The right ventricular systolic function is normal. There is moderate to severe mitral regurgitation. There is moderate biatrial enlargement. The patient was in third degree heart block during the exam. The heart rate ranged between 50-70 bpm during the study. No other echocardiographic abnormalities seen. Reading Physician:04: 50 PM Assessment & Plan Mr. Walsh is an 81-year-old male with type 2 diabetes mellitus, hypertension and CAD with history of MS presenting as a referral from [facility] for shortness of breath. 1. Acute on chronic systolic congestive heart failure exacerbation. Present on admission. Active -CXR showed moderate pulmonary edema. Clinically, patient with lower extremity edema and mild JVD. He continues to have dyspnea. He is currently on BiPAP. -Echocardiogram showed EF of 35-40% and severe pulmonary hypertension. -[place] 8784 [place] [address]. He is still positive 12.8 L today. -Monitor I/O and daily weights -Carvedilol 6.25 mg BID -Lasix gtt stopped. Switched to torsemide 40 mg daily PO and increased to BID. -Switched isosorbide dinitrate to isosorbide mononitrate 30 mg BID -Discontinued nitroglycerin drip -Metolazone stopped. 2. 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 Unknown acuity. Present on admission. Improved. -Pacemaker placement 01/17/17 -Hemoglobin and hematocrit stable this afternoon -Sandbag placed for pressure along with a pressure dressing on pacemaker site hematoma. -Discontinue heparin once warfarin is therapeutic. Warfarin was chosen so that a reversal is available. -Dr. Leiva will monitor the hematoma and perform an incision to drain the hematoma if necessary 3. Left lower extremity DVT, acute. Present on admission. Active. -Doppler US showed an occlusive thrombus within the left superficial femoral vein, popliteal vein, and posterior tibial vein. -Hemoglobin and hematocrit stable -Heparin gtt to discontinue once warfarin is therapeutic. -Monitor CBC -Warfarin started, pharmacy to dose and their input is appreciated -will consider IVC if anticoagulation needs to be stopped for longer time due to hematoma 4. Possible pulmonary embolism. Present on admission. Active -Doppler of lower extremities shows left lower extremity DVT -warfarin started as above. -V/Q scan was refused 5. Acute kidney injury on chronic kidney disease. Present on admission. Improving. -Chronic component as patient has longstanding hypertension and CHF and see above -Creatinine 1.70 initially, 2.55 today -Renal ultrasound shows mild cortical thinning and increased renal cortical echogenicity bilaterally -Avoid nephrotoxins -Hold home allopurinol for now. -Nephrology consulted and following. Their time and recommendations are appreciated. See #1 above. -Resume chlorthalidone 25 mg once daily. 6. 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 Present on admission. Improving. -Renal tubular acidosis, type 4. Likely secondary to chronic kidney disease. Notes from his primary care physician report CKD stage 3. Prior BUN 34, creatinine 1.41 on 03/22/2016. In 2012, BUN 33, creatinine 1.52. -Lactic acid within normal limits, no ketones but protein in the urine -Nephrology consulted and following. Their time and recommendations are appreciated. -Follow with CMP 7. Hypertension, chronic. Present on admission -Hold Isosorbide nitrate 40 mg twice a day as patient is currently on a nitroglycerin drip -Held patient's home ANDREW inhibitor due to acute kidney injury. -Avoiding beta blockers, CCB due to heart block -Furosemide 40 mg IV BID discontinued and patient started on furosemide drip as above, which has been discontinued and switched to torsemide -Cardiology recommended hydralazine 50 mg every 8 hours for additional blood pressure control. -Decreased hydralazine to BID -Chlorthalidone 25 mg once daily added to regimen 8. Bilateral lower leg and right upper extremity edema and erythema, acute. Present on admission. Improving. - Possible cellulitis. It may be stasis dermatitis from chronic venous congestion. See echocardiogram above. - Streptozyme and MRSA screen negative -US of right upper extremity was negative for DVT. -WBC 8.9, within normal limits -Infectious disease consulted. His time and recommendations are appreciated. -Ceftriaxone discontinued -Continue to monitor -Lotion to be applied as needed for dry skin 9. Hyperkalemia, acute. Present on admission. Improved. -Possibly related to acute kidney injury and metabolic acidosis -Patient received Kayexalate and Lasix in the ED -Follow with CMP 10. Coronary artery disease, chronic. Present on admission. -Troponin elevated but given SHMUEL and elevated BNP, it is likely from demand ischemia. Echocardiogram shows severe pulmonary hypertension. -Discontinue clopidogrel to help prevent worsening bruising -Stopped aspirin as pt reports not taking this at home 11. Acute stress reaction. Present on admission. Improved -Patient denied current suicidal ideation -Psychiatry consulted and their time and recommendations were appreciated. 12. Gastroesophageal reflux disease, chronic. Present on admission. -Continued home famotidine 13. Diabetes mellitus type II, diet controlled, chronic. Present on admission. -HgbA1c 7.1% VTE Prophylaxis: Other (Heparin gtt) Resuscitation Status: Limited Interventions (DNI) Limited Interventions: Compressions, Cardioversion/Defibrillation, BiPAP, Medications and IV Fluid Attending Statement The patient was seen and examined together with Dr. Jamison on 01/22/2017 and I agree with the history, exam and plan as outlined in the note above. . Valencia Jamison DO Jan 22, 2017 07:50 Ever Mejia MD Jan 22, 2017 18:57
--- NOTE | 2017-01-22 13:28 | PCM.PHAPRO ---
Progress WARFARIN DOSING Indication VTE Home dose NA Dosing Table: (day) one 2 3 4 5 6 7 8 9 10 11 12 13 [facility] Date Jan 23-Dec 27-Jan 2-Jan 3-Jan 4-Jan 5-Jan 6-Jan 7-Jan 8-Jan 9-Jan 10-Jan 11-Jan INR 1.11 INR change Warf Dose 3 a/ Following problems provide rationale for reduced initial dose: CHF, CKD, age, reduced nutrition, elevated INR at baseline p/ Start at 3mg/day and follow Tom Solares S Pharm D Jan 22, 2017 13:28
[2017-01-22 13:33] LABS: Mean Corpuscular Hemoglobin 29.2 pg (27.0-35.0); Mean Corpuscular Volume 90.9 fL (81-100)
--- NOTE | 2017-01-22 15:10 | PCM.PNMED ---
Subjective Date of Service Jan 22, 2017 Subjective The events the last week have been reviewed. Since I saw Mr. Nico tierney is undergone a pacemaker insertion is also developed a DVT. He is currently on heparin however he is continuing to support from the insertion site of the pacemaker. He is now on CPAP and there is concern about a possible pulmonary embolus. SHE is acute on chronic kidney injury CT angiogram is out of the question and the patient has declined a VQ scan. I had a long discussion with the patient and his today who I am familiar with from previous evaluations. His appetite is fair but he is quite weak and is frustrated with his lack of progress. Both concerned about the ecchymosis around his chest from the insertion of the pacemaker and subsequent anticoagulation. His creatinine today is 2.55 which is steadily risen. I personally reviewed his urine and left. Under a microscope work he had a few granular casts. He had a large amount of red blood cells with a few dysmorphic red cells. I feel with his hematuria is probably from irritation of the Espino catheter in his bladder. I also reviewed a chest x-ray from today and he does have an increased amount of right-sided pleural effusion and some cephalization of flow. Otherwise today his sodium is 138, potassium 4.2, chloride 99, bicarbonate is 26, BUN and creatinine were 67 and 2.55. Exam Vital Signs Vital Sign - Last Date Time Temp Pulse Resp B/P Pulse Ox O2 Delivery O2 Flow Rate FiO2 01/22/17 12:08 36.3 73 24 128/75 96 BiPAP 45 01/21/17 20:22 6.00 Intake and Output 01/21/17 01/21/17 01/22/17 Cumulative From/Thru 15:00 23:00 07:00 01/09/17 17:14 - 01/22/17 06:35 Intake Total 964 ml 632 ml 04095 ml Output Total 600 ml 325 ml 9728 ml Balance 364 ml 307 ml 03429 ml Intake Oral 436 ml 386 ml 85727 ml IV Total 528 ml 246 ml 38586 ml Output Urine Total 600 ml 325 ml 9727 ml Estimated Blood Loss 1 ml # Voids 38 # Bowel Movements 13 Exam HEENT examination is remarkable for mildly pale sclera. Neck is supple without adenopathy or thyromegaly however he does have some mild to moderate venous distention at 90. Lungs showed some bibasilar rales bilaterally with increasing dullness on the right side as compared to the left. Heart was regular rhythm with a soft systolic murmur. Abdomen was distended with tympany to percussion. The abdomen was nontender and show any tenderness, rebound, guarding or hepatosplenomegaly. Extremities showed some mild lower extremity edema. Lab and Diagnostics Result Diagram: 01/22/17 1330 01/22/17 0335 X-Rays, CTs and MRIs PROCEDURE: US VEINOUS LEG DUPLEX UNILATERAL, LEFT IMPRESSION: Occlusive thrombus within the left superficial femoral vein, popliteal vein, and posterior tibial vein. These findings were discussed with Dr. Lopez at 7:45 PM by the medical lab tech instructor. Approved by: Rosaura Angel M.D. on 01/09/2017 at 20:08 PROCEDURE: X-RAY CHEST ONE VIEW, PORTABLE IMPRESSION: 1. Low lung volumes and basilar opacities which may represent atelectasis, although aspiration/infection could also be considered in the differential. 2. Interstitial opacities and cardiomegaly suspicious for fluid overload. Approved by: Rosaura Angel M.D. on 01/09/2017 at 18:50 PROCEDURE: US RENAL SONOGRAM IMPRESSION: 1. Mild cortical thinning and increased renal cortical echogenicity bilaterally , compatible with medical renal disease. 2. No hydronephrosis. Approved by: Carissa Boyd M.D. on 01/10/2017 at 12:45 PROCEDURE: X-RAY CHEST ONE VIEW, PORTABLE IMPRESSION: Dual-chamber cardiac pacemaking device leads in normal position, generalized moderate pulmonary edema, small subpulmonic right pleural effusion is again seen. Approved by: Ermias Major M.D. on 01/17/2017 at 17:26 Cardiac Echo Impressions Echocardiogram Report Interpretation Summary The left ventricle is mildly dilated. The ejection fraction is estimated to be 35-40%. There is severe hypokinesis of the mid and distal septum, and akinesis of the septum and posterior wall. The anterior wall is hypokinetic and in apical inferior wall is akinetic. 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 There is severe pulmonary hypertension. The right ventricular systolic pressure is estimated at 89 mmHg assuming a right atrial pressure of 15 mm Hg. The right ventricle is mildly dilated. The right ventricular systolic function is normal. There is moderate to severe mitral regurgitation. There is moderate biatrial enlargement. The patient was in third degree heart block during the exam. The heart rate ranged between 50-70 bpm during the study. No other echocardiographic abnormalities seen. Reading Physician:04: 50 PM Assessment & Plan M impression #1 acute on chronic kidney injury secondary to decompensated heart failure #2 hypertension with hypertensive heart disease and hypertensive nephrosclerosis #3 hematuria secondary to anticoagulation Recommendations #1 discuss the case with the family and staff and would recommend increasing his torsemide to twice a day and also adding chlorthalidone. Cardiology has recommended stopping the heparin solution him to Coumadin. I will continue to follow him closely. VTE Prophylaxis: Other (Heparin gtt) Resuscitation Status: Limited Interventions (DNI) Limited Interventions: Compressions, Cardioversion/Defibrillation, BiPAP, Medications and IV Fluid Jakob Bell DO Jan 22, 2017 15:10
--- NOTE | 2017-01-22 16:24 | NUR ---
Social Work Note: Continued Discharge Planning Data& Assessment: Per MD pt is not medically ready for discharge at this time. Per RN in morning rounds, pt oxygen needs have increased and pt hematoma has increased in size. SW met with pt and pt Katty at bedside to follow up regarding Home Health Preferences. Pt explained she has not gotten a chance to think about a preference due to pt medical condition and new concerns. Pt became teary eyed and expressed further distress over pt condition. SW provided psychosocial support. Pt requested SW check in tomorrow. SW ensured pt had SW phone number. SW to check in with pt and pt tomorrow and follow up regarding home health preference. SW to continue to follow. Plan: Anticipated discharge home with home health when medically ready. SW to check in with pt and pt tomorrow and follow up regarding home health preference. SW to continue to follow. ELEAZAR Hernandez
[2017-01-22] MEDS: Nitroglycerin 50 mg/250 mL D5W Premix IV SCH (18:48)
[2017-01-22 20:14] LABS: INR 1.07 ratio
[2017-01-22] MEDS: Heparin 25K Unit/500mL 0.45 NS 25,000 UNIT in IV Premix 1 EACH IV SCH (21:24)
[2017-01-23] VITALS (14 sets, daily range): BP systolic 114–135; BP diastolic 69–75; PULSE 63–79; RESP 14–29; O2SAT 95–99
[2017-01-23 04:19] LABS: EOSINOPHILS % (AUTO) 1.4 % (0-5); MONOCYTES % (AUTO) 18.1 % (4-12); Mean Corpuscular Hemoglobin 29.2 pg (27.0-35.0); Mean Corpuscular Volume 90.7 fL (81-100); NEUTROPHILS % (AUTO) 56.5 % (40-74); Platelet Count 149 bil/L (150-400)
[2017-01-23 04:43] LABS: INR 1.06 ratio; Magnesium 2.1 mg/dL (1.6-2.6); Phosphorus 3.9 mg/dL (2.5-4.9)
--- NOTE | 2017-01-23 04:51 | NUR ---
Hematoma R chest pressure dressing in place throughout shift. Per MD, no removal of dressing for measurements this shift. Able to monitor edge of hematoma from around pressure dressing; size appears approximately unchanged throughout night. Pt denies any pain. Heparin gtt reinitiated at HS without starting bolus per MD order. Pt agreeable to repositioning on R side at HS, denied further repositioning throughout shift. Pt reminded to keep L extremity immobile. Pt on BiPAP throughout shift at 45% FiO2 with intermittent breaks on 6L NC for eating or rest period from BiPAP; SPO2 maintains >92%. VSS. Tele paced 70s.
--- NOTE | 2017-01-23 06:17 | ABG ---
DateTimeAnalyzed 06:08:17 -_ pH ____7.412 - pCO2 ___47.6__ -mmHg pO2 119 -mmHg HCO3- ___30.3__ -mmol/L ABE ____5.1__ -mmol/L tHb ___11.5__ -g/dL O2Hb ___97.5__ -% COHb ____1.1__ -% MetHb ____0.6__ -% sO2 ___99.2__ -% FIO2 ___45.0__ -% Pressure_Support ___10.0__ -cmH2O PEEP ____5.0__ -cmH2O Set_RR 14 -b/min Drawn By BLF - Spontaneous_RR 24 -b/min Oxygen Device 1 ____BIPAP - B 754 -mmHg K+ ____4.0__ -mmol/L tO2 ___16.0__ -Vol% Fan test _Positive -
[2017-01-23] MEDS: Insulin LISPRO 300 Unit/3 mL Inj SUBQ SCH ×4 (08:00→20:51)
[2017-01-23] MEDS: Isosorbide Mononitrate 30 mg ER24 Tablet PO SCH ×2 (08:57→20:42)
--- NOTE | 2017-01-23 10:56 | DRSVH ---
PROCEDURE: X-RAY CHEST ONE VIEW, PORTABLE ([id number]) INDICATIONS: dyspnea TECHNIQUE: One view of the chest was acquired. COMPARISON: [facility], CR, XR CHEST 1VW (PORTABLE), 01/22/2017, 10:21. FINDINGS: Surgical changes and devices: Stable positioning of left cardiac pacer. Lungs and pleura: Persistent small pleural effusions and mid/basilar air space opacities. Mild venou s congestion similar to prior examination. Mediastinum: Mediastinal contours appear normal. Heart size is normal. Bones and chest wall: No suspicious bony lesions. Overlying soft tissues appear unremarkable. IMPRESSION: Mild pulmonary venous congestion similar to prior examination persistent mid/basilar airs pace opacities consistent with patchy pulmonary edema versus aspiration or pneumonia. Dictated by: Oscar GOMEZ Interpreted: Devora Ordoñez MD on 01/23/2017 at 10:54 Transcribed by: LEONOR on 01/23/2017 at 10:55 Approved by: Devora Ordoñez M.D. on 01/23/2017 at 17:25
--- NOTE | 2017-01-23 11:50 | PCM.PNMED ---
Subjective Date of Service Jan 23, 2017 Subjective The patient's bleeding appears to have stabilized. He has much clearer urine this morning. His breathing which still remains quite problematic. He is dependent on CPAP and still has some mild conversational dyspnea. His blood pressure is good this intake and output for the last 24 hours for 8:30 nightly and 875 out. His sodium is 138, potassium 4.1, chloride 98, bicarbonate 28, BUN and creatinine were 79 and 2.46 respectively. This is a bit improved from yesterday. I reviewed today's chest x-ray and he does have some increased pulmonary edema with increasing fluid in fissures. Exam Vital Signs Vital Sign - Last Date Time Temp Pulse Resp B/P Pulse Ox O2 Delivery O2 Flow Rate FiO2 01/23/17 10:59 63 01/23/17 08:30 20 98 45 01/23/17 07:35 CPAP/BIPAP 01/23/17 07:23 36.3 129/73 01/21/17 20:22 6.00 Intake and Output 01/22/17 01/22/17 01/23/17 Cumulative From/Thru 15:00 23:00 07:00 01/09/17 17:14 - 01/23/17 05:59 Intake Total 200 ml 290 ml 05343 ml Output Total 550 ml 600 ml 03860 ml Balance -350 ml -310 ml 11208 ml Intake Oral 200 ml 120 ml 15401 ml IV Total 170 ml 46486 ml Output Urine Total 550 ml 600 ml 29095 ml Estimated Blood Loss 1 ml # Voids 38 # Bowel Movements 0 13 Exam Neck is supple without adenopathy or thyromegaly however he does have some moderate jugular venous distention at 60. Lungs showed by bilateral rales approximately one third of the way up a bit more pronounced on the right as compared to the left. Her sugar and rhythm with a soft systolic murmur. Abdomen is soft without any tenderness or rebound guarding masses or hepatosplenomegaly. Extremities no tremor any evidence of any clubbing cyanosis or edema. Lab and Diagnostics Result Diagram: 01/23/1734301/23/17343 X-Rays, CTs and MRIs PROCEDURE: US VEINOUS LEG DUPLEX UNILATERAL, LEFT IMPRESSION: Occlusive thrombus within the left superficial femoral vein, popliteal vein, and posterior tibial vein. These findings were discussed with Dr. Lopez at 7:45 PM by the clock repair technician. Approved by: Rosaura Angel M.D. on 01/09/2017 at 20:08 PROCEDURE: X-RAY CHEST ONE VIEW, PORTABLE IMPRESSION: 1. Low lung volumes and basilar opacities which may represent atelectasis, although aspiration/infection could also be considered in the differential. 2. Interstitial opacities and cardiomegaly suspicious for fluid overload. Approved by: Rosaura Angel M.D. on 01/09/2017 at 18:50 PROCEDURE: US RENAL SONOGRAM IMPRESSION: 1. Mild cortical thinning and increased renal cortical echogenicity bilaterally , compatible with medical renal disease. 2. No hydronephrosis. Approved by: Carissa Boyd M.D. on 01/10/2017 at 12:45 PROCEDURE: X-RAY CHEST ONE VIEW, PORTABLE IMPRESSION: Dual-chamber cardiac pacemaking device leads in normal position, generalized moderate pulmonary edema, small subpulmonic right pleural effusion is again seen. Approved by: Ermias Major M.D. on 01/17/2017 at 17:26 PROCEDURE: X-RAY CHEST ONE VIEW, PORTABLE IMPRESSION: 1. Interval increase in mid/basilar patchy airspace opacities consistent with worsening atelectasis, aspiration and/or pneumonia. Recommend clinical correlation. 2. Small pleural effusions redemonstrated. Approved by: Tracy Carr MD, PhD on 01/22/2017 at 11:47 Cardiac Echo Impressions Echocardiogram Report Interpretation Summary The left ventricle is mildly dilated. The ejection fraction is estimated to be 35-40%. There is severe hypokinesis of the mid and distal septum, and akinesis of the septum and posterior wall. The anterior wall is hypokinetic and in apical inferior wall is akinetic. 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 There is severe pulmonary hypertension. The right ventricular systolic pressure is estimated at 89 mmHg assuming a right atrial pressure of 15 mm Hg. The right ventricle is mildly dilated. The right ventricular systolic function is normal. There is moderate to severe mitral regurgitation. There is moderate biatrial enlargement. The patient was in third degree heart block during the exam. The heart rate ranged between 50-70 bpm during the study. No other echocardiographic abnormalities seen. Reading Physician:04: 50 PM Assessment & Plan Impression #1 acute kidney injury #2 congestive heart failure with pulmonary edema #3 hypertension with hypertensive heart disease and hypertensive nephrosclerosis with congestive heart failure dictation #1 I would like to focus right now on his diuresis and increasing his pulmonary toilet. VTE Prophylaxis: Other (Heparin gtt) Resuscitation Status: Limited Interventions (DNI) Limited Interventions: Compressions, Cardioversion/Defibrillation, BiPAP, Medications and IV Fluid Jakob Bell DO Jan 23, 2017 11:50
--- NOTE | 2017-01-23 12:08 | PCM.PHAPRO ---
Progress WARFARIN DOSING Indication VTE Home dose NA Dosing Table: (day) one 2 3 4 5 6 7 8 9 10 11 12 13 [facility] Date Jan 23-Dec 27-Jan 2-Jan 3-Jan 4-Jan 5-Jan 6-Jan 7-Jan 8-Jan 9-Jan 10-Jan 11-Jan INR 1.11 INR change Warf Dose 3 a/ Following problems provide rationale for reduced initial dose: CHF, CKD, age, reduced nutrition, elevated INR at baseline p/ Start at 3mg/day and follow WARFARIN DOSING Indication VTE Home dose NA Dosing Table: (day) one 2 3 4 5 6 7 8 9 10 11 12 13 [facility] Date Jan 23-Dec 27-Jan 2-Jan 3-Jan 4-Jan 5-Jan 6-Jan 7-Jan 8-Jan 9-Jan 10-Jan 11-Jan INR 1.07 1.06 INR change Warf Dose 3 3 a/ Following problems provide rationale for reduced initial dose: CHF, CKD, age, reduced nutrition, elevated INR at baseline (1.11 on admit) p/ Continue at 3mg, anticipate INR ramp tomorrow Tom Solares S Pharm D Jan 23, 2017 12:08
[2017-01-23] MEDS: Furosemide 10 mg/mL 10 mL Inj IVPUSH SCH ×2 (12:30→20:43)
--- NOTE | 2017-01-23 13:52 | PCM.PNMED ---
Subjective Date of Service Jan 23, 2017 Subjective Mr. Walsh is an 81-year-old male with type 2 diabetes mellitus, hypertension and CAD with history of DE presenting as a referral from [facility] for shortness of breath. Patient is accompanied by his at bedside. He continues to have trouble breathing. He has not had a bowel movement in 4 days. He would like to get out of bed more often. He does not want a CT scan because of the radiation exposure. Exam Vital Signs Vital Sign - Last Date Time Temp Pulse Resp B/P Pulse Ox O2 Delivery O2 Flow Rate FiO2 01/23/17 12:49 68 20 97 45 01/23/17 11:53 36.8 119/69 BiPAP 01/21/17 20:22 6.00 Intake and Output 01/22/17 01/22/17 01/23/17 Cumulative From/Thru 15:00 23:00 07:00 01/09/17 17:14 - 01/23/17 05:59 Intake Total 200 ml 290 ml 84914 ml Output Total 550 ml 600 ml 67292 ml Balance -350 ml -310 ml 85242 ml Intake Oral 200 ml 120 ml 33597 ml IV Total 170 ml 15334 ml Output Urine Total 550 ml 600 ml 78387 ml Estimated Blood Loss 1 ml # Voids 38 # Bowel Movements 0 13 Exam General: Elderly patient sitting upright in bed with BiPAP in place and sleeping. No acute distress, well-developed, well-nourished, appropriately interactive. HEENT: Normocephalic, atraumatic. External ears without defect. Pupils equal, round, and reactive to light. Oral mucosa pink with dry mucosa. Cardiovascular: Regular rate and rhythm. No murmurs, rubs, or gallops appreciated Pulmonary: Tachypneic. Diffuse crackles bilaterally with wheezing or rhonchi. Increased respiratory effort with use of accessory muscles. Pacemaker site with palpable, soft hematoma softball sized that is not actively bleeding with pressure dressing in place. Ecchymosis extending from incision site to left flank and across chest. Abdomen: Bowel tones present. Soft, nontender, nondistended. Extremities: Left lower extremity with mild pitting edema and mild erythema, improving, with dry skin. Right lower extremity with trace pitting edema limited to inferior mcgee, improving, with dry skin. Onychomycosis of bilateral toenails. Neurological: Cranial nerves grossly intact. Normal muscle strength, tone, and bulk. Psychiatric: Normal mood and affect. Alert and oriented to person, place, and time. IVs and Medications Medications Reviewed: Medications were reviewed in detail Lab and Diagnostics Result Diagram: 01/23/17 0344 01/23/17 1250 X-Rays, CTs and MRIs PROCEDURE: US VEINOUS LEG DUPLEX UNILATERAL, LEFT IMPRESSION: Occlusive thrombus within the left superficial femoral vein, popliteal vein, and posterior tibial vein. These findings were discussed with Dr. Lopez at 7:45 PM by the science technician. Approved by: Rosaura Angel M.D. on 01/09/2017 at 20:08 PROCEDURE: X-RAY CHEST ONE VIEW, PORTABLE IMPRESSION: 1. Low lung volumes and basilar opacities which may represent atelectasis, although aspiration/infection could also be considered in the differential. 2. Interstitial opacities and cardiomegaly suspicious for fluid overload. Approved by: Rosaura Angel M.D. on 01/09/2017 at 18:50 PROCEDURE: US RENAL SONOGRAM IMPRESSION: 1. Mild cortical thinning and increased renal cortical echogenicity bilaterally , compatible with medical renal disease. 2. No hydronephrosis. Approved by: Carissa Boyd M.D. on 01/10/2017 at 12:45 PROCEDURE: X-RAY CHEST ONE VIEW, PORTABLE IMPRESSION: Dual-chamber cardiac pacemaking device leads in normal position, generalized moderate pulmonary edema, small subpulmonic right pleural effusion is again seen. Approved by: Ermias Major M.D. on 01/17/2017 at 17:26 PROCEDURE: X-RAY CHEST ONE VIEW, PORTABLE IMPRESSION: 1. Interval increase in mid/basilar patchy airspace opacities consistent with worsening atelectasis, aspiration and/or pneumonia. Recommend clinical correlation. 2. Small pleural effusions redemonstrated. Approved by: Tracy Carr MD, PhD on 01/22/2017 at 11:47 Cardiac Echo Impressions Echocardiogram Report Interpretation Summary The left ventricle is mildly dilated. The ejection fraction is estimated to be 35-40%. There is severe hypokinesis of the mid and distal septum, and akinesis of the septum and posterior wall. The anterior wall is hypokinetic and in apical inferior wall is akinetic. 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 There is severe pulmonary hypertension. The right ventricular systolic pressure is estimated at 89 mmHg assuming a right atrial pressure of 15 mm Hg. The right ventricle is mildly dilated. The right ventricular systolic function is normal. There is moderate to severe mitral regurgitation. There is moderate biatrial enlargement. The patient was in third degree heart block during the exam. The heart rate ranged between 50-70 bpm during the study. No other echocardiographic abnormalities seen. Reading Physician:04: 50 PM Assessment & Plan 1. Acute on chronic systolic congestive heart failure exacerbation. Present on admission. Active -CXR continues to show moderate pulmonary edema. Clinically, patient with lower extremity edema and mild JVD. He continues to have dyspnea. He is currently on BiPAP. Possible pleural effusion. -Echocardiogram showed EF of 35-40% and severe pulmonary hypertension. -[place] 8784 [place] [address]. He is still positive 12.8 L today. -Monitor I/O and daily weights -Incentive spirometer -Carvedilol 6.25 mg BID -Lasix gtt stopped. Switched to torsemide 40 mg BID. IV furosemide 80 mg push today, per nephrology -Isosorbide mononitrate 30 mg BID -CT scan shows bilateral large pleural effusions,will consider diagnostic/ therapeutic thoracentesis 2. 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 Unknown acuity. Present on admission. Improved. -Pacemaker placement 01/17/17 -Hemoglobin and hematocrit stable this afternoon -Sandbag placed for pressure along with a pressure dressing on pacemaker site hematoma. -Discontinue heparin once warfarin is therapeutic. Warfarin was chosen so that a reversal is available. -Dr. Leiva will monitor the hematoma and perform an incision to drain the hematoma if necessary -Infection prophylaxis of doxycycline 100 mg once daily started at request of cardiology -Resume physical therapy 3. Left lower extremity DVT, acute. Present on admission. Active. -Doppler US showed an occlusive thrombus within the left superficial femoral vein, popliteal vein, and posterior tibial vein. -Hemoglobin and hematocrit stable -Heparin gtt to discontinue once warfarin is therapeutic. -Monitor CBC -Warfarin started, pharmacy to dose and their input is appreciated -will consider IVC if anticoagulation needs to be stopped for longer time due to hematoma 4. Possible pulmonary embolism. Present on admission. Active -Doppler of lower extremities shows left lower extremity DVT -warfarin started as above. -V/Q scan was refused 5. Acute kidney injury on chronic kidney disease. Present on admission. Improving. -Chronic component as patient has longstanding hypertension and CHF and see above -Creatinine 1.70 initially, 2.55 today -Renal ultrasound shows mild cortical thinning and increased renal cortical echogenicity bilaterally -Avoid nephrotoxins -Hold home allopurinol for now. -Nephrology consulted and following. Their time and recommendations are appreciated. See #1 above. -Resume chlorthalidone 25 mg once daily. 6. 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 Present on admission. Improving. -Renal tubular acidosis, type 4. Likely secondary to chronic kidney disease. Notes from his primary care physician reported CKD stage 3. Prior BUN 34, creatinine 1.41 on 03/22/2016. In 2012, BUN 33, creatinine 1.52. -Lactic acid within normal limits, no ketones but protein in the urine -Nephrology consulted and following. Their time and recommendations are appreciated. -Follow with CMP 7. Hypertension, chronic. Present on admission -Hold Isosorbide nitrate 40 mg twice a day as patient is currently on a nitroglycerin drip -Held patient's home ANDREW inhibitor due to acute kidney injury. -Avoiding beta blockers, CCB due to heart block -Furosemide 40 mg IV BID discontinued and patient started on furosemide drip as above, which has been discontinued and switched to torsemide -Cardiology recommended hydralazine 50 mg every 8 hours for additional blood pressure control. -Decreased hydralazine to BID, consider decreasing to once per day tomorrow -Chlorthalidone 25 mg once daily added to regimen 8. Bilateral lower leg and right upper extremity edema and erythema, acute. Present on admission. Improving. - Possible cellulitis. It may be stasis dermatitis from chronic venous congestion. See echocardiogram above. - Streptozyme and MRSA screen negative -US of right upper extremity was negative for DVT. -WBC 8.9, within normal limits -Infectious disease consulted. His time and recommendations are appreciated. -Ceftriaxone discontinued -Continue to monitor -Lotion to be applied as needed for dry skin 9. Hyperkalemia, acute. Present on admission. Improved. -Possibly related to acute kidney injury and metabolic acidosis -Patient received Kayexalate and Lasix in the ED -Follow with CMP 10. Coronary artery disease, chronic. Present on admission. -Troponin elevated but given SHMUEL and elevated BNP, it is likely from demand ischemia. Echocardiogram shows severe pulmonary hypertension. -Discontinue clopidogrel to help prevent worsening bruising -Stopped aspirin as pt reports not taking this at home 11. Acute stress reaction. Present on admission. Improved -Patient denied current suicidal ideation -Psychiatry consulted and their time and recommendations were appreciated. 12. Gastroesophageal reflux disease, chronic. Present on admission. -Continued home famotidine 13. Diabetes mellitus type II, diet controlled, chronic. Present on admission. -HgbA1c 7.1% Disposition: Discuss a palliative care consultation with patient and patient's . Patient and his are not interested in SNF placement and request home health services. Patient's dyspnea continues to not improve. VTE Prophylaxis: Other (Heparin gtt) Resuscitation Status: Limited Interventions (DNI) Limited Interventions: Compressions, Cardioversion/Defibrillation, BiPAP, Medications and IV Fluid Attending Statement The patient was seen and examined together with Dr. Jamison on 01/23/2017 and I agree with the history, exam and plan as outlined in the note above. . Valencia Jamison DO Jan 23, 2017 13:51 Ever Mejia MD Jan 23, 2017 18:18
--- NOTE | 2017-01-23 16:31 | NUR ---
OC Signed ELEAZAR Hernandez
[2017-01-23] MEDS ORDERED: Heparin 5,000 Unit/mL Inj IVPUSH PRN (16:45)
--- NOTE | 2017-01-23 18:12 | DRSVH ---
PROCEDURE: CT CHEST WITHOUT CONTRAST ([id number]) INDICATIONS: dyspnea,chf TECHNIQUE: Noncontrast 5 mm thick sections acquired from the pulmonary apices to the posterior costophrenic angl es. 7 mm thick coronal and sagittal MIP reformats were then acquired. For radiation dose reduction, the following was used: automated exposure control, adjustment of mA and/or kV according to patient size. COMPARISON: None. FINDINGS: Image quality: Excellent. Lungs and pleura: There is a large right and a moderate left low-density pleural effusion. Consolidat ion or collapse is present bilaterally in the lower lobes. Interlobular septal thickening is present in the apices bilaterally. Mediastinum: Heart size is moderately enlarged. There is a left dual lead cardiac pacer. No pericard ial effusion. No mediastinal adenopathy by size criteria. Thoracic aorta and central pulmonary donald patricia are normal in size. Scattered atheromatous calcifications are present within the aortic arch. E sophagus is normal in caliber. No hiatal hernia. Bones and chest wall: No suspicious bony lesions. No vertebral body compression fractures. No axil yasmeen or supraclavicular adenopathy by size criteria. Thyroid gland is grossly unremarkable. Abdomen: Visualized upper abdominal solid organs and bowel loops appear normal in the absence of con trast. IMPRESSION: 1. Large bilateral pleural effusions and consolidation versus collapse of the lower lobes. These find ings in conjunction with interlobular septal thickening and cardiomegaly suggest fluid overload in th e setting of congestive heart failure. However, underlying infection or aspiration could also be cons idered in the differential given the presence of consolidated lung. Dictated by: Rosaura Angel M.D. on 01/23/2017 at 18:07 Approved by: Rosaura Angel M.D. on 01/23/2017 at 18:10
--- NOTE | 2017-01-23 18:33 | NUR ---
HEMATOMA/RESPIRATORY Hematoma stable in size, no additional growth, pressure dressing to remain in place until tomorrow per Dr. Leiva. Continue heparin gtt at 1200 units/hr, call for PTT results, unless within normal range. Patient's respiratory status continues to be an issue, requiring BIPAP intermittently w/ 6L NC at meals. He is able to tolerate PO intake well, without decompensation. Will continue to monitor hematoma site, vitals and respiratory status.
[2017-01-23] MEDS: Nitroglycerin 50 mg/250 mL D5W Premix IV SCH (19:06)
[2017-01-23] MEDS: Heparin 25K Unit/500mL 0.45 NS 25,000 UNIT in IV Premix 1 EACH IV SCH (20:30)
[2017-01-24] VITALS (13 sets, daily range): BP systolic 111–138; BP diastolic 61–76; PULSE 60–83; RESP 18–27; O2SAT 92–97
[2017-01-24 04:03] LABS: MONOCYTES % (AUTO) 18.9 % (4-12); Mean Corpuscular Hemoglobin 29.2 pg (27.0-35.0); Mean Corpuscular Volume 90.5 fL (81-100); NEUTROPHILS % (AUTO) 59.6 % (40-74); Platelet Count 145 bil/L (150-400)
[2017-01-24 04:15] LABS: INR 1.1 ratio
[2017-01-24 04:40] LABS: Magnesium 2.1 mg/dL (1.6-2.6); Phosphorus 3.6 mg/dL (2.5-4.9)
--- NOTE | 2017-01-24 04:59 | NUR ---
NOC: Restful evening. Pt on BIPAP @45% when sleeping- sp02 high 90s. Compression dressing to Left shoulder remains intact- no bleeding or oozing at site. Pt Left arm continues to weep, absorbent pads changed frequently. Ptt remains therapeutic on heparin gtt @1200u. Care ongoing.
[2017-01-24] MEDS: Insulin LISPRO 300 Unit/3 mL Inj SUBQ SCH ×4 (08:00→21:46)
[2017-01-24] MEDS: Isosorbide Mononitrate 30 mg ER24 Tablet PO SCH ×2 (08:31→21:37)
[2017-01-24] MEDS: Furosemide 10 mg/mL 10 mL Inj IVPUSH SCH ×2 (08:36→21:36)
--- NOTE | 2017-01-24 10:25 | PCM.PHAPRO ---
Progress WARFARIN DOSING WARFARIN DOSING Indication VTE Home dose NA Dosing Table: (day) one 2 3 4 5 6 7 8 9 10 11 12 13 [facility] Date Jan 23-Dec 27-Jan 2-Jan 3-Jan 4-Jan 5-Jan 6-Jan 7-Jan 8-Jan 9-Jan 10-Jan 11-Jan INR 1.07 1.06 1.1 INR change Warf Dose 3 3 4 a/ Following problems provide rationale for reduced initial dose: CHF, CKD, age, reduced nutrition, elevated INR at baseline (1.11 on admit) INR ramp beginning, but weak. p/ Modest increase to 4mg and follow Tom Solares Pharm D Jan 24, 2017 10:25
--- NOTE | 2017-01-24 13:12 | CONS ---
[address] [address] CONSULTATION REPORT PATIENT: ALISA TERRAZAS : 1935 MR#: [id number] ADMIT: 01/09/2017 JOB ID: [id number] DATE OF SERVICE: 01/24/2017 PULMONARY CONSULTATION NOTE: The patient is an 81-year-old man with history of ischemic cardiomyopathy, type 2 diabetes seen in consultation at the request of Dr. Mejia for dyspnea, hypoxemia and bilateral pleural effusions. HISTORY OF PRESENT ILLNESS: The patient was admitted to the hospital on January 10 with increasing dyspnea, fatigue and tiredness. He denied any fevers, chills, chest pain. He continues to feel quite short of breath. He has had a long and complex hospital stay. He was found to have a second-degree AV block for which a pacemaker was placed over the course of this hospitalization. He was also found to have a left-sided superficial femoral popliteal and posterior tibial thrombosis on January 09 for which she has been on anticoagulation, currently on a heparin drip. He has had some kidney injury on presentation and because of evidence of volume overload he was diuresed with Lasix both p.o. and IV throughout the last few weeks. His creatinine, however, has risen with diuresis and diuresis was held briefly and again restarted by Dr. Bell with Nephrology yesterday. At this point, he is on BiPAP alternating with 4 L nasal cannula. He is currently on BiPAP. He is getting diuresis with chlorthalidone and IV Lasix. PAST MEDICAL HISTORY: 1. Coronary artery disease, MD age 38 and cardiomyopathy with EF around 35%. 2. Type 2 diabetes. 3. Fungal cellulitis followed by Dr. Bradshaw. 4. Second-degree AV block status post pacemaker. 5. Left-sided superficial femoral popliteal posterior tibial DVT on anticoagulation diagnosed December 2016. FAMILY HISTORY: Mother had breast cancer. SOCIAL HISTORY: Never smoker. 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 No history of alcohol use. REVIEW OF SYSTEMS: A 10 point review of systems is negative except as mentioned above in HPI. PHYSICAL EXAMINATION: Vital signs reviewed. Temperature 36.8, pulse 83, respirations 22, BP 127/68, sats 95% on 45% FiO2. General: Elderly gentleman lying in bed. He has significant bruising on his upper left chest where his pacemaker was placed, probably because of the heparin drip. Neck: No cervical lymphadenopathy. HEENT: Oral mucosa moist. No ulcers or thrush. Chest: Decreased breath sounds at both bases. Heart: Regular rate, rhythm. Abdomen: Soft, nontender. Extremities: No cyanosis, clubbing, edema. Skin: No rashes. LABORATORIES: Reviewed. WBC 6.2, hemoglobin 11, platelets 145. Chemistry also reviewed. Creatinine 2.43. BUN 78, relatively stable the last few days. BNP is 23,000 up from 8000 on admission. Procalcitonin 0.25 and it has been less than this throughout the admission. Ins and outs: His weight today is 84.8 kg. Weight on admission was recorded as both 79 kg and 83 kg. I am not sure which is accurate. Cultures: No growth. IMAGING: Chest x-ray shows right greater than left bilateral pleural effusions. Chest CT shows interlobular septal thickening, most prominent in the upper lobes suggesting pulmonary edema. Also right greater than left pleural effusion-moderate right and small left pleural effusions. Mild shotty mediastinal lymphadenopathy throughout. Arterial blood gas on January 23 shows pH 7.41, pCO2 of 47, pO2 of 119, bicarbonate of 30. ASSESSMENT AND RECOMMENDATIONS: 1. Acute hypoxic respiratory failure. 2. Decompensated diastolic and systolic heart failure. 3. Bilateral pleural effusions. 4. Acute on chronic kidney injury. This elderly gentleman with diabetes, ischemic cardiomyopathy, EF around 35%, second-degree heart block status post pacemaker and lower extremity DVT on anticoagulation is seen for hypoxemia, dyspnea and bilateral pleural effusions. It looks like his dyspnea and hypoxemia is primarily due to volume overload and findings on chest CT are consistent with that. He is on anticoagulation for DVT and while he could have a PE as well, this would not really identity management consultant with regards to anticoagulation at this point. I suggested adding albumin to help with his diuresis. He is on chlorthalidone and IV Lasix per Dr. Bell and I agree with this. What we could offer is a right-sided thoracentesis to remove as much fluid as possible. This would definitely help the shortness of breath I think. Discussed this with the patient and his and they agreed with proceeding. Informed consent was obtained after all risks and benefits were discussed. We stopped his heparin drip and plan is to proceed in about 6 hours. I checked with pharmacy and this would be adequate time. Despite a couple of doses of warfarin, his INR is still 1.1 so I do not think this is a contraindication.
--- NOTE | 2017-01-24 13:39 | PCM.PNMED ---
Subjective Date of Service Jan 24, 2017 Subjective Mr. Walsh is an 81-year-old male with type 2 diabetes mellitus, hypertension and CAD with history of UT presenting as a referral from [facility] for shortness of breath. Patient is accompanied by his at bedside. Today, he continues to have shortness of breath, which is causing him to eat less during meals. He does not have chest pain, leg pain, or cough. The swelling in his legs has improved. Exam Vital Signs Vital Sign - Last Date Time Temp Pulse Resp B/P Pulse Ox O2 Delivery O2 Flow Rate FiO2 01/24/17 12:42 36.7 76 20 128/76 97 BiPAP 01/24/17 11:45 45 01/23/17 19:48 6.00 Intake and Output 01/23/17 01/23/17 01/24/17 Cumulative From/Thru 15:00 23:00 07:00 01/09/17 17:14 - 01/24/17 05:33 Intake Total 515 ml 274 ml 78596 ml Output Total 950 ml 1000 ml 44828 ml Balance -435 ml -726 ml 53645 ml Intake Oral 250 ml 0 ml 15504 ml IV Total 265 ml 274 ml 59638 ml Output Urine Total 950 ml 1000 ml 18004 ml Estimated Blood Loss 1 ml # Voids 38 # Bowel Movements 0 13 Exam General: Elderly patient sitting upright in bed with BiPAP in place. No acute distress, well-developed, well-nourished, appropriately interactive. HEENT: Normocephalic, atraumatic. External ears without defect. Pupils equal, round, and reactive to light. Oral mucosa pink with dry mucosa. Cardiovascular: Regular rate and rhythm. No murmurs, rubs, or gallops appreciated Pulmonary: Tachypneic. Diffuse crackles bilaterally at the bases with wheezing or rhonchi. Increased respiratory effort with use of accessory muscles. Pacemaker site with palpable, soft hematoma softball sized that is not actively bleeding with pressure dressing in place. Ecchymosis extending from incision site to left flank and across chest. Abdomen: Bowel tones present. Soft, nontender, nondistended. Extremities: Left lower extremity with mild pitting edema and mild erythema, improving, with dry skin. Right lower extremity with trace edema limited to inferior mcgee, improving, with dry skin. Onychomycosis of bilateral toenails. Neurological: Cranial nerves grossly intact. Normal muscle strength, tone, and bulk. Psychiatric: Normal mood and affect. Alert and oriented to person, place, and time. IVs and Medications Medications Reviewed: Medications were reviewed in detail Lab and Diagnostics Result Diagram: 01/24/1734301/24/17343 X-Rays, CTs and MRIs PROCEDURE: US VEINOUS LEG DUPLEX UNILATERAL, LEFT IMPRESSION: Occlusive thrombus within the left superficial femoral vein, popliteal vein, and posterior tibial vein. These findings were discussed with Dr. Lopez at 7:45 PM by the orthophoto tech/draftsman. Approved by: Rosaura Angel M.D. on 01/09/2017 at 20:08 PROCEDURE: X-RAY CHEST ONE VIEW, PORTABLE IMPRESSION: 1. Low lung volumes and basilar opacities which may represent atelectasis, although aspiration/infection could also be considered in the differential. 2. Interstitial opacities and cardiomegaly suspicious for fluid overload. Approved by: Rosaura Angel M.D. on 01/09/2017 at 18:50 PROCEDURE: US RENAL SONOGRAM IMPRESSION: 1. Mild cortical thinning and increased renal cortical echogenicity bilaterally , compatible with medical renal disease. 2. No hydronephrosis. Approved by: Carissa Boyd M.D. on 01/10/2017 at 12:45 PROCEDURE: X-RAY CHEST ONE VIEW, PORTABLE IMPRESSION: Dual-chamber cardiac pacemaking device leads in normal position, generalized moderate pulmonary edema, small subpulmonic right pleural effusion is again seen. Approved by: Ermias Major M.D. on 01/17/2017 at 17:26 PROCEDURE: X-RAY CHEST ONE VIEW, PORTABLE IMPRESSION: 1. Interval increase in mid/basilar patchy airspace opacities consistent with worsening atelectasis, aspiration and/or pneumonia. Recommend clinical correlation. 2. Small pleural effusions redemonstrated. Approved by: Tracy Carr MD, PhD on 01/22/2017 at 11:47 PROCEDURE: X-RAY CHEST ONE VIEW, PORTABLE IMPRESSION: No post-thoracentesis pneumothorax. Approved by: Tracy Carr MD, PhD on 01/24/2017 at 17:24 Cardiac Echo Impressions Echocardiogram Report Interpretation Summary The left ventricle is mildly dilated. The ejection fraction is estimated to be 35-40%. There is severe hypokinesis of the mid and distal septum, and akinesis of the septum and posterior wall. The anterior wall is hypokinetic and in apical inferior wall is akinetic. 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 There is severe pulmonary hypertension. The right ventricular systolic pressure is estimated at 89 mmHg assuming a right atrial pressure of 15 mm Hg. The right ventricle is mildly dilated. The right ventricular systolic function is normal. There is moderate to severe mitral regurgitation. There is moderate biatrial enlargement. The patient was in third degree heart block during the exam. The heart rate ranged between 50-70 bpm during the study. No other echocardiographic abnormalities seen. Reading Physician:04: 50 PM Assessment & Plan 1. Acute on chronic systolic congestive heart failure exacerbation. Present on admission. Active -CXR continues to show moderate pulmonary edema. Clinically, patient with lower extremity edema and mild JVD. He continues to have dyspnea. He is currently on BiPAP. Possible pleural effusion. -Echocardiogram showed EF of 35-40% and severe pulmonary hypertension. -[place] 8784 [place] [address]. He is still positive 12.8 L today. -Monitor I/O and daily weights -Incentive spirometer -Carvedilol 6.25 mg BID -Lasix gtt stopped. Switched to torsemide 40 mg BID. IV furosemide 80 mg push yesterday, per nephrology -Isosorbide mononitrate 30 mg BID -CT scan shows bilateral large pleural effusions -Diagnostic/therapeutic thoracentesis today after being off of heparin for 6 hours. Resume heparin after thoracentesis. -Pulmonology consulted and following. Their time and recommendations are appreciated. 2. 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 Unknown acuity. Present on admission. Improved. -Pacemaker placement 01/17/17 -Hemoglobin and hematocrit stable this afternoon -Sandbag placed for pressure along with a pressure dressing on pacemaker site hematoma. -Discontinue heparin once warfarin is therapeutic. Warfarin was chosen so that a reversal is available. -Dr. Leiva will monitor the hematoma and perform an incision to drain the hematoma if necessary -Infection prophylaxis of doxycycline 100 mg once daily started at request of cardiology -Resume physical therapy 3. Left lower extremity DVT, acute. Present on admission. Active. -Doppler US showed an occlusive thrombus within the left superficial femoral vein, popliteal vein, and posterior tibial vein. -Hemoglobin and hematocrit stable -Heparin gtt to discontinue once warfarin is therapeutic. -Monitor CBC -Warfarin started, pharmacy to dose and their input is appreciated -will consider IVC if anticoagulation needs to be stopped for longer time due to hematoma -Continue heparin at low rate secondary to hematoma 4. Possible pulmonary embolism. Present on admission. Active -Doppler of lower extremities shows left lower extremity DVT -warfarin started as above. -V/Q scan was refused by patient and 5. Acute kidney injury on chronic kidney disease. Present on admission. Improving. -Chronic component as patient has longstanding hypertension and CHF and see above -Creatinine 1.70 initially, 2.43 today -Renal ultrasound shows mild cortical thinning and increased renal cortical echogenicity bilaterally -Avoid nephrotoxins -Hold home allopurinol for now. -Nephrology consulted and following. Their time and recommendations are appreciated. See #1 above. -Resumed chlorthalidone 25 mg once daily. 6. 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 Present on admission. Improving. -Renal tubular acidosis, type 4. Likely secondary to chronic kidney disease. Notes from his primary care physician reported CKD stage 3. Prior BUN 34, creatinine 1.41 on 03/22/2016. In 2012, BUN 33, creatinine 1.52. -Lactic acid within normal limits, no ketones but protein in the urine -Nephrology consulted and following. Their time and recommendations are appreciated. -Follow with CMP 7. Hypertension, chronic. Present on admission -Hold Isosorbide nitrate 40 mg twice a day as patient is currently on a nitroglycerin drip -Held patient's home ANDREW inhibitor due to acute kidney injury. -Avoiding beta blockers, CCB due to heart block -Furosemide 40 mg IV BID discontinued and patient started on furosemide drip as above, which has been discontinued and switched to torsemide -Cardiology recommended hydralazine 50 mg every 8 hours for additional blood pressure control. -Decreased hydralazine to BID, consider decreasing to once per day based on stable blood pressure. -Chlorthalidone 25 mg once daily added to regimen 8. Bilateral lower leg and right upper extremity edema and erythema, acute. Present on admission. Improving. - Possible cellulitis. It may be stasis dermatitis from chronic venous congestion. See echocardiogram above. - Streptozyme and MRSA screen negative -US of right upper extremity was negative for DVT. -WBC 8.9, within normal limits -Infectious disease consulted. His time and recommendations are appreciated. -completed Ceftriaxone -Continue to monitor -Lotion to be applied as needed for dry skin 9. Hyperkalemia, acute. Present on admission. Improved. -Possibly related to acute kidney injury and metabolic acidosis -Patient received Kayexalate and Lasix in the ED -Follow with CMP 10. Coronary artery disease, chronic. Present on admission. -Troponin elevated but given SHMUEL and elevated BNP, it is likely from demand ischemia. Echocardiogram shows severe pulmonary hypertension. -Discontinued clopidogrel to help prevent worsening bruising -Stopped aspirin as pt reports not taking this at home 11. Acute stress reaction. Present on admission. Improved -Patient denied current suicidal ideation -Psychiatry consulted and their time and recommendations were appreciated. 12. Gastroesophageal reflux disease, chronic. Present on admission. -Continued home famotidine 13. Diabetes mellitus type II, diet controlled, chronic. Present on admission. -HgbA1c 7.1% Disposition: pending hospital course,hopefully in 2-3 days ,large volume thoracentesis done today VTE Prophylaxis: Other (Heparin gtt) Resuscitation Status: Limited Interventions (DNI) Limited Interventions: Compressions, Cardioversion/Defibrillation, BiPAP, Medications and IV Fluid Attending Statement patient was seen and examined with Dr Jamison on 01/24/17 ,I agree with the history,exam ,assessment and plan as outlined above Valencia Jamison DO Jan 24, 2017 13:39 Ever Mejia MD Jan 24, 2017 22:37
--- NOTE | 2017-01-24 14:10 | PCM.PNMED ---
Subjective Date of Service Jan 24, [address] scan of the chest reveals significant bilateral pleural effusions. I have discussed the case with the patient and his and along with Dr. Hernandez me and I feel that bilateral thoracentesis as to appropriate treatment. His renal function is about the same as it has been with slight improvement. This morning his creatinine is 2.43. He continues to be on BiPAP. His blood pressures ranged between 110 and 130. His intake and output for the last 24 hours work and 5 09/09/1951 out and in the last 8 hours he has had over thousand out. Was 136, potassium 4.2, chloride 96, bicarbonate 28, BUN and creatinine were 78 and 2.43. Exam Vital Signs Vital Sign - Last Date Time Temp Pulse Resp B/P Pulse Ox O2 Delivery O2 Flow Rate FiO2 01/24/17 12:42 36.7 76 20 128/76 97 BiPAP 01/24/17 11:45 45 01/23/17 19:48 6.00 Intake and Output 01/23/17 01/23/17 01/24/17 Cumulative From/Thru 15:00 23:00 07:00 01/09/17 17:14 - 01/24/17 05:33 Intake Total 515 ml 274 ml 95255 ml Output Total 950 ml 1000 ml 26728 ml Balance -435 ml -726 ml 05716 ml Intake Oral 250 ml 0 ml 08313 ml IV Total 265 ml 274 ml 69521 ml Output Urine Total 950 ml 1000 ml 80221 ml Estimated Blood Loss 1 ml # Voids 38 # Bowel Movements 0 13 Exam Patient remains on BiPAP with some conversational dyspnea. Neck is supple without adenopathy. Lungs show less bibasal rales. Dullness in both bases. Heart was regular and rhythmical with a soft systolic murmur. Abdomen soft without any tenderness rebound guarding masses or hepatosplenomegaly. Anais Satcher any evidence of any clubbing cyanosis or edema. Lab and Diagnostics Result Diagram: 01/24/17 0344 01/24/17343 X-Rays, CTs and MRIs PROCEDURE: US VEINOUS LEG DUPLEX UNILATERAL, LEFT IMPRESSION: Occlusive thrombus within the left superficial femoral vein, popliteal vein, and posterior tibial vein. These findings were discussed with Dr. Lopez at 7:45 PM by the geotechnical field technician. Approved by: Rosaura Angel M.D. on 01/09/2017 at 20:08 PROCEDURE: X-RAY CHEST ONE VIEW, PORTABLE IMPRESSION: 1. Low lung volumes and basilar opacities which may represent atelectasis, although aspiration/infection could also be considered in the differential. 2. Interstitial opacities and cardiomegaly suspicious for fluid overload. Approved by: Rosaura Angel M.D. on 01/09/2017 at 18:50 PROCEDURE: US RENAL SONOGRAM IMPRESSION: 1. Mild cortical thinning and increased renal cortical echogenicity bilaterally , compatible with medical renal disease. 2. No hydronephrosis. Approved by: Carissa Boyd M.D. on 01/10/2017 at 12:45 PROCEDURE: X-RAY CHEST ONE VIEW, PORTABLE IMPRESSION: Dual-chamber cardiac pacemaking device leads in normal position, generalized moderate pulmonary edema, small subpulmonic right pleural effusion is again seen. Approved by: Ermias Major M.D. on 01/17/2017 at 17:26 PROCEDURE: X-RAY CHEST ONE VIEW, PORTABLE IMPRESSION: 1. Interval increase in mid/basilar patchy airspace opacities consistent with worsening atelectasis, aspiration and/or pneumonia. Recommend clinical correlation. 2. Small pleural effusions redemonstrated. Approved by: Tracy Carr MD, PhD on 01/22/2017 at 11:47 Cardiac Echo Impressions Echocardiogram Report Interpretation Summary The left ventricle is mildly dilated. The ejection fraction is estimated to be 35-40%. There is severe hypokinesis of the mid and distal septum, and akinesis of the septum and posterior wall. The anterior wall is hypokinetic and in apical inferior wall is akinetic. 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 There is severe pulmonary hypertension. The right ventricular systolic pressure is estimated at 89 mmHg assuming a right atrial pressure of 15 mm Hg. The right ventricle is mildly dilated. The right ventricular systolic function is normal. There is moderate to severe mitral regurgitation. There is moderate biatrial enlargement. The patient was in third degree heart block during the exam. The heart rate ranged between 50-70 bpm during the study. No other echocardiographic abnormalities seen. Reading Physician:04: 50 PM Assessment & Plan Impression #1 acute kidney injury which appears to be multifactorial #2 hypertension with hypertensive heart disease and hypertensive nephrosclerosis with acute congestive heart failure #3 bilateral pleural effusions Recommendations #1 would be my hope that by drawing the fluid off we can increase the cardiovascular function and hopefully improve his renal function. VTE Prophylaxis: Other (Heparin gtt) Resuscitation Status: Limited Interventions (DNI) Limited Interventions: Compressions, Cardioversion/Defibrillation, BiPAP, Medications and IV Fluid Jakob Bell DO Jan 24, 2017 14:10
--- NOTE | 2017-01-24 17:10 | PCM.PROC ---
Procedure Note Date of Service: Jan 24, 2017 Pre Procedure Diagnosis: Pleural effusion Post Procedure Diagnosis: Pleural effusion Procedure: Thoracentesis Provider and Jumpbasting Lining Baster: DO Iris Johnson MD Indication for Procedure: Moderate Pleural effusion Findings: Straw colored fluid Procedure Details: Consent was obtained from the patient prior to the procedure. Indications, risks , and benefits were explained at length. A time-out was performed. Ultrasound used to zaida location. The area was cleansed and draped in sterile fashion using chlorhexidine scrub. Anesthesia was achieved with 1% lidocaine buffered with sodium bicarbonate to the pleural surface. The thoracentesis catheter was inserted and advanced with negative pressure until yellow colored fluid was aspirated. Approximately 80 mL of ascitic fluid was collected and sent for laboratory analysis. The catheter was then connected to the Vacutainer and approximately 1800 ml of additional ascitic fluid was drained. The catheter was removed. and gauze held in place for 2 minutes. A band-aid was placed over the puncture wound. The patient tolerated the procedure well without any immediate complications. Chest x-ray is pending. Estimated blood loss was minimal. Dr. Iris Cronin was present throughout the procedure. Specimen: 1800 ml of straw colored pleural fluid sent to lab Attending Statement Procedure performed-right thoracentesis Date of service: 01/24/17 I was present for and supervised the entire procedure. Ultrasound guidance was used to locate fluid and zaida area for needle entry. Iris Cronin M.D. Pulmonary and Critical Care medicine Pager [phone] Aleksandar Calderon DO Jan 24, 2017 17:10 Iris Cronin MD Jan 25, 2017 08:15
--- NOTE | 2017-01-24 17:19 | NUR ---
Bed Pt c/o feeling like he was sitting in a hole and could not get comfortable. Pt repositioned multiple times and pillows in use and still not comfortable. We changed the bed out. Wound care nurse called for ideas to help with the pressure ulcer on sacrum and having to sit up to help breath. Wound care brought over a blow up mattress that is placed on top of the bed but under the bedding, has holes in it so to help protect skin. Checked in on pt later in the day and he is very pleased with the new bed situation. Q2 turns still active.
--- NOTE | 2017-01-24 17:36 | DRSVH ---
PROCEDURE: X-RAY CHEST ONE VIEW, PORTABLE ([id number]) INDICATIONS: POST thoracentesis TECHNIQUE: One view of the chest was acquired. COMPARISON: [facility], CR, XR CHEST 1VW (PORTABLE), 01/23/2017, 5:40. FINDINGS: Surgical changes and devices: Dolichoectasia is stable.. Lungs and pleura: Small left-sided pleural fluid collection is noted. Right sided pleural fluid colle ction was completely resolved following thoracentesis. No pneumothorax. Patchy opacity at left lung b ase which could represent atelectasis versus pneumonia. Mediastinum: Mediastinal contours appear normal. Heart size is normal. Bones and chest wall: No suspicious bony lesions. Overlying soft tissues appear unremarkable. IMPRESSION: No post-thoracentesis pneumothorax. Dictated by: Tracy Carr MD, PhD on 01/24/2017 at 17:22 Approved by: Tracy Carr MD, PhD on 01/24/2017 at 17:24
[2017-01-24 17:49] LABS: TOTAL PROTEIN,PLEURAL FLUID 0.8 g/dL
[2017-01-24 18:16] LABS: BFWBC 73 /mm3; MONOCYTES,BODY FLUID 38 %; OTHER CELLS,BODY FLUID 20
--- NOTE | 2017-01-24 18:23 | NUR ---
spiritual care: follow up conversational, caring visit with pt's Katty. She described stressful afternoon as she is trying to take care of household as well as sustaining high anxiety about pt's condition and care, especially about his surgery. friend from [employer] at bedside, supportive.
[2017-01-24] MEDS: Nitroglycerin 50 mg/250 mL D5W Premix IV SCH (19:50)
[2017-01-24] MEDS: Heparin 25K Unit/500mL 0.45 NS 25,000 UNIT in IV Premix 1 EACH IV SCH (21:52)
--- NOTE | 2017-01-24 23:54 | NUR ---
Report Report given to Alfred Lira RN, all questions answered, patient resting in bed, no distress noted.
[2017-01-25] VITALS (14 sets, daily range): BP systolic 118–135; BP diastolic 57–77; PULSE 61–102; RESP 18–27; O2SAT 91–100
[2017-01-25 05:12] LABS: BASOPHILS % (AUTO) 0.8 % (0-3); EOSINOPHILS % (AUTO) 0.6 % (0-5); Mean Corpuscular Hemoglobin 29.3 pg (27.0-35.0); Mean Corpuscular Volume 90.3 fL (81-100); NEUTROPHILS % (AUTO) 68.8 % (40-74); Platelet Count 167 bil/L (150-400)
[2017-01-25 05:24] LABS: INR 1.25 ratio
[2017-01-25] MEDS: Insulin LISPRO 300 Unit/3 mL Inj SUBQ SCH ×4 (08:00→21:47)
[2017-01-25] MEDS: Isosorbide Mononitrate 30 mg ER24 Tablet PO SCH ×2 (08:26→21:45)
[2017-01-25] MEDS: Furosemide 10 mg/mL 10 mL Inj IVPUSH SCH ×2 (08:29→21:31)
[2017-01-25] MEDS ORDERED: Albumin 25% 25 GM in IV Premix 1 EACH IV ONE (10:00)
--- NOTE | 2017-01-25 12:06 | NUR ---
Q2 Turns While trying to turn the Pt every 2 hours and explaining to the pt why it is important to turn due to his pressure ulcer on his sacrum and even with the new bedding the pt still shifts to his back. We are trying to keep his heels floated and sometimes the will take the pillows out from under his feet or the pt will kick his legs over to the side. This is unchanged as when I had the pt on previous shifts. SMELTER LINER and I still turn the pt every 2 hours and do education with each turn. Pressure ulcer is being followed by wound care.
--- NOTE | 2017-01-25 14:16 | NUR ---
NUTRITION FOLLOW UP Assess: Pt is an 81 yo male admitted w/ DVT, probable PE, and CHF. Cardiology is following, and found intermittent complete heart block w/ metabolic acidosis and ARF. A pacemaker was inserted. Pt continues to be SOB w/ moderate pulmonary edema and lower extremity edema. states pt is eating less during meals d/t SOB; recorded PO intake is poor. Pt underwent thoracentesis yesterday. Per notes, breathing is improving. Wound consult on 01/22 diagnosed Stage II PU on left buttock. PMHx: HTN, Type II DM, CAD w/ history of [place] LABS: Cl 95, CO2 30, BUN 83, Web Graphic Designer 2.32, Gluc 162, A1c 7.1, Total Bilirubin 1.3, Alb 2.9, Procalcitonin 0.25 MEDICATIONS: Coumadin, Lasix, Pepcid, Magnesium Oxide DIET: Heart Healthy - PO 0-50% GI symptoms/stool: BMx1 (01/24) SKIN: 15 Stage II sacral PU per WC; Redness and swelling noted on bilateral lower legs ANTHROPOMETRICS: Current Wt: 79.6 kg BMI: 24.5 kg/m2 Admit Wt: 83.7 kg IBW: 75.5 kg ESTIMATED NEEDS: Acute Renal Failure, Wounds Calories: 6852-7005 kcal/day (25-35 kcal/kg BW) Protein: 65-95 g/day (0.8-1.2 g/kg BW) NUTRITION DIAGNOSIS: 1) Altered nutrition-related lab values related to acute renal failure as evidenced by elevated BUN and Web Graphic Designer levels.---PERSISTS 2) Increased nutritional needs related to wound healing as evidenced by Stage II sacral pressure ulcer per Wound Care. INTERVENTION: 1) Will add Glucerna to L&D trays to help ensure adequate protein and calorie intake. MONITOR/EVALUATE: PO intake, wt, GI, labs, nutrition status, POC. Will continue to monitor per moderate nutritional risk guidelines. Addendum: 01/25/17 at [address] Student documentation reviewed and I agree with the above assessment. Hayes Torres, MS, RDN, CD
--- NOTE | 2017-01-25 15:27 | PCM.PNMED ---
Subjective Date of Service Jan 25, 2017 Subjective Mr. Walsh is an 81-year-old male with type 2 diabetes mellitus, hypertension and CAD with history of [place] presenting as a referral from [facility] for shortness of breath. Patient is accompanied by his at bedside He was doing better until this morning at around 3 AM when he needed the BIPAP again. Patient states that he is doing "great." He does not have chest pain, leg pain, abdominal pain, or diarrhea. Exam Vital Signs Vital Sign - Last Date Time Temp Pulse Resp B/P Pulse Ox O2 Delivery O2 Flow Rate FiO2 01/25/17 14:12 Nasal Cannula 6.00 01/25/17 11:15 77 22 96 45 01/25/17 10:58 37.0 129/68 Intake and Output 01/24/17 01/24/17 01/25/17 Cumulative From/Thru 15:00 23:00 07:00 01/09/17 17:14 - 01/25/17 05:45 Intake Total 409 ml 100 ml 70133 ml Output Total 1100 ml 1500 ml 02002 ml Balance -691 ml -1400 ml 9624 ml Intake Oral 300 ml 100 ml 00148 ml IV Total 109 ml 66324 ml Output Urine Total 1100 ml 1500 ml 93024 ml Estimated Blood Loss 1 ml # Voids 38 # Bowel Movements 1 14 Exam General: Elderly patient sitting upright in bed with BiPAP in place. No acute distress, well-developed, well-nourished, appropriately interactive. HEENT: Normocephalic, atraumatic. External ears without defect. Pupils equal, round, and reactive to light. Oral mucosa pink with dry mucosa. Cardiovascular: Regular rate and rhythm. No murmurs, rubs, or gallops appreciated Pulmonary: Tachypneic. Diffuse crackles bilaterally at the bases with wheezing or rhonchi. Increased respiratory effort with use of accessory muscles. Pacemaker site with palpable, soft hematoma softball sized that is not actively bleeding with pressure dressing in place. Ecchymosis extending from incision site to left flank and across chest. Abdomen: Bowel tones present. Soft, nontender, nondistended. Extremities: Left lower extremity with trace pitting edema, improving, with dry skin. Right lower extremity with trace edema limited to inferior mcgee, improving , with dry skin. Onychomycosis of bilateral toenails. Neurological: Cranial nerves grossly intact. Normal muscle strength, tone, and bulk. Psychiatric: Normal mood and affect. Alert and oriented to person, place, and time. IVs and Medications Medications Reviewed: Medications were reviewed in detail Lab and Diagnostics Result Diagram: 01/25/1744301/25/17443 X-Rays, CTs and MRIs PROCEDURE: US VEINOUS LEG DUPLEX UNILATERAL, LEFT IMPRESSION: Occlusive thrombus within the left superficial femoral vein, popliteal vein, and posterior tibial vein. These findings were discussed with Dr. Lopez at 7:45 PM by the nuclear fuel processing technician. Approved by: Rosaura Angel M.D. on 01/09/2017 at 20:08 PROCEDURE: X-RAY CHEST ONE VIEW, PORTABLE IMPRESSION: 1. Low lung volumes and basilar opacities which may represent atelectasis, although aspiration/infection could also be considered in the differential. 2. Interstitial opacities and cardiomegaly suspicious for fluid overload. Approved by: Rosaura Angel M.D. on 01/09/2017 at 18:50 PROCEDURE: US RENAL SONOGRAM IMPRESSION: 1. Mild cortical thinning and increased renal cortical echogenicity bilaterally , compatible with medical renal disease. 2. No hydronephrosis. Approved by: Carissa Boyd M.D. on 01/10/2017 at 12:45 PROCEDURE: X-RAY CHEST ONE VIEW, PORTABLE IMPRESSION: Dual-chamber cardiac pacemaking device leads in normal position, generalized moderate pulmonary edema, small subpulmonic right pleural effusion is again seen. Approved by: Ermias Major M.D. on 01/17/2017 at 17:26 PROCEDURE: X-RAY CHEST ONE VIEW, PORTABLE IMPRESSION: 1. Interval increase in mid/basilar patchy airspace opacities consistent with worsening atelectasis, aspiration and/or pneumonia. Recommend clinical correlation. 2. Small pleural effusions redemonstrated. Approved by: Tracy Carr MD, PhD on 01/22/2017 at 11:47 PROCEDURE: X-RAY CHEST ONE VIEW, PORTABLE IMPRESSION: Mild edema and/or pneumonia involving the lung bases with no significant change. Approved by: Tracy Carr MD, PhD on 01/25/2017 at 17:06 Cardiac Echo Impressions Echocardiogram Report Interpretation Summary The left ventricle is mildly dilated. The ejection fraction is estimated to be 35-40%. There is severe hypokinesis of the mid and distal septum, and akinesis of the septum and posterior wall. The anterior wall is hypokinetic and in apical inferior wall is akinetic. 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 There is severe pulmonary hypertension. The right ventricular systolic pressure is estimated at 89 mmHg assuming a right atrial pressure of 15 mm Hg. The right ventricle is mildly dilated. The right ventricular systolic function is normal. There is moderate to severe mitral regurgitation. There is moderate biatrial enlargement. The patient was in third degree heart block during the exam. The heart rate ranged between 50-70 bpm during the study. No other echocardiographic abnormalities seen. Reading Physician:04: 50 PM Assessment & Plan 1. Acute on chronic systolic congestive heart failure exacerbation. Present on admission. Active -CXR continues to show moderate pulmonary edema. Clinically, patient with lower extremity edema and mild JVD. He continues to have dyspnea. He is currently on BiPAP. Possible pleural effusion. -Echocardiogram showed EF of 35-40% and severe pulmonary hypertension. -[place] 8784 [place] [address]. He is still positive 12.8 L today. -Monitor I/O and daily weights -Incentive spirometer -Carvedilol 6.25 mg BID -Lasix gtt stopped. Switched to torsemide 40 mg BID. IV furosemide, per nephrology -Isosorbide mononitrate 30 mg BID -CT scan shows bilateral large pleural effusions -Diagnostic/therapeutic thoracentesis 01/24/17 -Pulmonology consulted and following. Their time and recommendations are appreciated. -Albumin 25 g given today 2. 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 Unknown acuity. Present on admission. Improved. -Pacemaker placement 01/17/17 -Hemoglobin and hematocrit stable this afternoon -Sandbag placed for pressure along with a pressure dressing on pacemaker site hematoma. -Discontinue heparin once warfarin is therapeutic. Warfarin was chosen so that a reversal is available. -Dr. Leiva will monitor the hematoma and perform an incision to drain the hematoma if necessary -Infection prophylaxis of doxycycline 100 mg once daily started at request of cardiology -Resume physical therapy 3. Left lower extremity DVT, acute. Present on admission. Active. -Doppler US showed an occlusive thrombus within the left superficial femoral vein, popliteal vein, and posterior tibial vein. -Hemoglobin and hematocrit stable -Heparin gtt to discontinue once warfarin is therapeutic. -Monitor CBC -Warfarin started, pharmacy to dose and their input is appreciated -will consider IVC if anticoagulation needs to be stopped for longer time due to hematoma -Continue heparin at low rate secondary to hematoma 4. Possible pulmonary embolism. Present on admission. Active -Doppler of lower extremities shows left lower extremity DVT -warfarin started as above. -V/Q scan was refused by patient and 5. Acute kidney injury on chronic kidney disease. Present on admission. Improving. -Chronic component as patient has longstanding hypertension and CHF and see above -Creatinine 1.70 initially, 2.43 today -Renal ultrasound shows mild cortical thinning and increased renal cortical echogenicity bilaterally -Avoid nephrotoxins -Hold home allopurinol for now. -Nephrology consulted and following. Their time and recommendations are appreciated. See #1 above. -Resumed chlorthalidone 25 mg once daily. 6. 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 Present on admission. Improving. -Renal tubular acidosis, type 4. Likely secondary to chronic kidney disease. Notes from his primary care physician reported CKD stage 3. Prior BUN 34, creatinine 1.41 on 03/22/2016. In 2012, BUN 33, creatinine 1.52. -Lactic acid within normal limits, no ketones but protein in the urine -Nephrology consulted and following. Their time and recommendations are appreciated. -Follow with CMP 7. Hypertension, chronic. Present on admission -Hold Isosorbide nitrate 40 mg twice a day as patient is currently on a nitroglycerin drip -Held patient's home ANDREW inhibitor due to acute kidney injury. -Avoiding beta blockers, CCB due to heart block -Furosemide 40 mg IV BID discontinued and patient started on furosemide drip as above, which has been discontinued and switched to torsemide -Cardiology recommended hydralazine 50 mg every 8 hours for additional blood pressure control. -Decreased hydralazine to BID, consider decreasing to once per day or discontinuing based on stable blood pressure. -Chlorthalidone 25 mg once daily added to regimen 8. Bilateral lower leg and right upper extremity edema and erythema, acute. Present on admission. Improving. - Possible cellulitis. It may be stasis dermatitis from chronic venous congestion. See echocardiogram above. - Streptozyme and MRSA screen negative -US of right upper extremity was negative for DVT. -WBC 8.9, within normal limits -Infectious disease consulted. His time and recommendations are appreciated. -completed Ceftriaxone -Continue to monitor -Lotion to be applied as needed for dry skin 9. Hyperkalemia, acute. Present on admission. Improved. -Possibly related to acute kidney injury and metabolic acidosis -Patient received Kayexalate and Lasix in the ED -Follow with CMP 10. Coronary artery disease, chronic. Present on admission. -Troponin elevated but given SHMUEL and elevated BNP, it is likely from demand ischemia. Echocardiogram shows severe pulmonary hypertension. -Discontinued clopidogrel to help prevent worsening bruising -Stopped aspirin as pt reports not taking this at home 11. Acute stress reaction. Present on admission. Improved -Patient denied current suicidal ideation -Psychiatry consulted and their time and recommendations were appreciated. 12. Gastroesophageal reflux disease, chronic. Present on admission. -Continued home famotidine 13. Diabetes mellitus type II, diet controlled, chronic. Present on admission. -HgbA1c 7.1% Disposition: pending hospital course,hopefully in 2-3 days ,large volume thoracentesis done yesterday VTE Prophylaxis: Other (Heparin gtt) Resuscitation Status: Limited Interventions (DNI) Limited Interventions: Compressions, Cardioversion/Defibrillation, BiPAP, Medications and IV Fluid Attending Statement The patient was seen and examined together with Dr. Jamison on 01/25/2017 and I agree with the history, exam and plan as outlined in the note above. Valencia Jamison DO Jan 25, 2017 15:26 Ever Mejia MD Jan 25, 2017 19:28
--- NOTE | 2017-01-25 15:56 | PCM.PHAPRO ---
Progress WARFARIN DOSING Indication VTE Home dose NA Dosing Table: (day) one 2 3 4 5 6 7 8 9 10 11 12 13 [facility] gsf gsf GSF GSF Date Jan 23-Dec 27-Jan 2-Jan 3-Jan 4-Jan 5-Jan 6-Jan 7-Jan 8-Jan 9-Jan 10-Jan 11-Jan INR 1.07 1.06 1.1 1.25 INR change Warf Dose 3 3 4 4 a/ Following problems provide rationale for reduced initial dose: CHF, CKD, age, reduced nutrition, elevated INR at baseline (1.11 on admit) INR ramp beginning. p/ Continue 4mg/d Tom Solares Pharm D Jan 25, 2017 15:56
--- NOTE | 2017-01-25 16:28 | PCM.PNMED ---
Subjective Date of Service Jan 25, 2017 Subjective The patient has had some improvement following his thoracentesis of his left lung. During the procedure possibly 1.8 L of transudative fluid was removed. The patient had considerable improvement in his breathing and some improvement in his renal function. His blood pressures have been averaging in the 1:30 range. He had 683 and in 2100 out yesterday. This morning his sodium is 138, potassium 4.5, chloride 95, bicarbonate 20, BUN and creatinine are 83 and 2.3 Respectively. This morning he began to complain of some shortness of breath once again. His dyspnea is not as profound as it was prior to his thoracentesis. I will review chest x-ray and upon what she does appear that he has some mild to moderate pulmonary edema but no reaccumulation of fluid in the pleural space. Exam Vital Signs Vital Sign - Last Date Time Temp Pulse Resp B/P Pulse Ox O2 Delivery O2 Flow Rate FiO2 01/25/17 16:08 67 95 01/25/17 14:12 Nasal Cannula 6.00 01/25/17 11:15 22 45 01/25/17 10:58 37.0 129/68 Intake and Output 01/24/17 01/24/17 01/25/17 Cumulative From/Thru 15:00 23:00 07:00 01/09/17 17:14 - 01/25/17 05:45 Intake Total 409 ml 100 ml 01484 ml Output Total 1100 ml 1500 ml 27891 ml Balance -691 ml -1400 ml 9624 ml Intake Oral 300 ml 100 ml 63907 ml IV Total 109 ml 76612 ml Output Urine Total 1100 ml 1500 ml 42453 ml Estimated Blood Loss 1 ml # Voids 38 # Bowel Movements 1 14 Exam Neck is supple without adenopathy thyromegaly. There is some mild to moderate jugular venous distention. Lungs show diminished breath sounds in both bases with some rales. Heart was regular and rhythmical with a soft systolic murmur. Abdomen is soft without any tenderness or rebound guarding masses or hepatosplenomegaly. Extremities do not show any evidence of any clubbing cyanosis or edema. Lab and Diagnostics Result Diagram: 01/25/1744301/25/174 X-Rays, CTs and MRIs PROCEDURE: US VEINOUS LEG DUPLEX UNILATERAL, LEFT IMPRESSION: Occlusive thrombus within the left superficial femoral vein, popliteal vein, and posterior tibial vein. These findings were discussed with Dr. Lopez at 7:45 PM by the resource technician. Approved by: Rosaura Angel M.D. on 01/09/2017 at 20:08 PROCEDURE: X-RAY CHEST ONE VIEW, PORTABLE IMPRESSION: 1. Low lung volumes and basilar opacities which may represent atelectasis, although aspiration/infection could also be considered in the differential. 2. Interstitial opacities and cardiomegaly suspicious for fluid overload. Approved by: Rosaura Angel M.D. on 01/09/2017 at 18:50 PROCEDURE: US RENAL SONOGRAM IMPRESSION: 1. Mild cortical thinning and increased renal cortical echogenicity bilaterally , compatible with medical renal disease. 2. No hydronephrosis. Approved by: Carissa Boyd M.D. on 01/10/2017 at 12:45 PROCEDURE: X-RAY CHEST ONE VIEW, PORTABLE IMPRESSION: Dual-chamber cardiac pacemaking device leads in normal position, generalized moderate pulmonary edema, small subpulmonic right pleural effusion is again seen. Approved by: Ermias Major M.D. on 01/17/2017 at 17:26 PROCEDURE: X-RAY CHEST ONE VIEW, PORTABLE IMPRESSION: 1. Interval increase in mid/basilar patchy airspace opacities consistent with worsening atelectasis, aspiration and/or pneumonia. Recommend clinical correlation. 2. Small pleural effusions redemonstrated. Approved by: Tracy Carr MD, PhD on 01/22/2017 at 11:47 PROCEDURE: X-RAY CHEST ONE VIEW, PORTABLE IMPRESSION: No post-thoracentesis pneumothorax. Approved by: Tracy Carr MD, PhD on 01/24/2017 at 17:24 Cardiac Echo Impressions Echocardiogram Report Interpretation Summary The left ventricle is mildly dilated. The ejection fraction is estimated to be 35-40%. There is severe hypokinesis of the mid and distal septum, and akinesis of the septum and posterior wall. The anterior wall is hypokinetic and in apical inferior wall is akinetic. 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 There is severe pulmonary hypertension. The right ventricular systolic pressure is estimated at 89 mmHg assuming a right atrial pressure of 15 mm Hg. The right ventricle is mildly dilated. The right ventricular systolic function is normal. There is moderate to severe mitral regurgitation. There is moderate biatrial enlargement. The patient was in third degree heart block during the exam. The heart rate ranged between 50-70 bpm during the study. No other echocardiographic abnormalities seen. Reading Physician:04: 50 PM Assessment & Plan Impression #1 acute on chronic kidney injury which is secondary to cardiac dysfunction and congestive heart failure. #2 diabetic nephropathy #3 hypertension with hypertensive heart disease hypertensive nephrosclerosis number for pulmonary edema. Recommendations #1 to go ahead and start him on 60 of IV Lasix every 12 hours for the next several days and see how his breathing is responding to this. VTE Prophylaxis: Other (Heparin gtt) Resuscitation Status: Limited Interventions (DNI) Limited Interventions: Compressions, Cardioversion/Defibrillation, BiPAP, Medications and IV Fluid Jakob Bell DO Jan 25, 2017 16:28
--- NOTE | 2017-01-25 17:09 | DRSVH ---
PROCEDURE: X-RAY CHEST ONE VIEW, PORTABLE ([id number]) INDICATIONS: SOB pleural effusion TECHNIQUE: One view of the chest was acquired. COMPARISON: [facility], CR, XR CHEST 1VW (PORTABLE), 01/24/2017, 17:03. FINDINGS: Surgical changes and devices: Cardiac pacer is stable.. Lungs and pleura: Small left-sided pleural fluid collection is noted. . No pneumothorax. Patchy opaci ty at left lung bases not significantly changed. Interstitium is prominent. Mediastinum: Mediastinal contours appear normal. Heart size is enlarged. Bones and chest wall: No suspicious bony lesions. Overlying soft tissues appear unremarkable. IMPRESSION: Mild edema and/or pneumonia involving the lung bases with no significant change. Dictated by: Oscar Holder [facility] Interpreted: Tracy Carr MD on 01/25/2017 at 17:00 Transcribed by: DES on 01/25/2017 at 17:02 Approved by: Tracy Carr MD, PhD on 01/25/2017 at 17:06
--- NOTE | 2017-01-25 18:59 | ABG ---
DateTimeAnalyzed 18:52:00 -_ pH ____7.445 - 7.350 7.450 pCO2 ___49.3__ -mmHg 35.0 45.0 pO2 109 -mmHg 69.0 116 HCO3- ___33.4__ -mmol/L 22.0 26.0 ABE ____8.4__ -mmol/L -2.0 2.0 tHb ___11.1__ -g/dL O2Hb ___95.8__ -% COHb ____1.6__ -% MetHb ____1.1__ -% sO2 ___98.5__ -% 25.0 FIO2 ___40.0__ -% Drawn By RC - Date/Time Notified____ 18:58:00 -_ Spontaneous_RR ___18.0__ -b/min Liter_Flow ____5.0__ -L/min Oxygen Device 1 __CANNULA - Notified By RC - Notified Whom CARUSO,INGRID, MD - B 761 -mmHg tO2 ___15.1__ -Vol% Fan test _Positive -
[2017-01-25] MEDS: Nitroglycerin 50 mg/250 mL D5W Premix IV SCH (19:03)
[2017-01-25] MEDS: Heparin 25K Unit/500mL 0.45 NS 25,000 UNIT in IV Premix 1 EACH IV SCH (20:33)
[2017-01-26] VITALS (12 sets, daily range): BP systolic 97–126; BP diastolic 53–69; PULSE 59–87; RESP 16–27; O2SAT 92–99
[2017-01-26 03:49] LABS: BASOPHILS % (AUTO) 0.8 % (0-3); EOSINOPHILS % (AUTO) 0.9 % (0-5); MONOCYTES % (AUTO) 15.2 % (4-12); Mean Corpuscular Hemoglobin 29.2 pg (27.0-35.0); Mean Corpuscular Volume 91.2 fL (81-100); NEUTROPHILS % (AUTO) 64.8 % (40-74); Platelet Count 167 bil/L (150-400)
[2017-01-26 04:05] LABS: INR 1.53 ratio
--- NOTE | 2017-01-26 04:39 | ABG ---
DateTimeAnalyzed 04:35:00 -_ pH ____7.478 - 7.350 7.450 pCO2 ___44.8__ -mmHg 35.0 45.0 pO2 170 -mmHg 69.0 116 HCO3- ___32.8__ -mmol/L 22.0 26.0 ABE ____8.6__ -mmol/L -2.0 2.0 tHb ___10.8__ -g/dL O2Hb ___97.0__ -% COHb ____1.4__ -% MetHb ____1.1__ -% sO2 ___99.5__ -% 25.0 FIO2 ___45.0__ -% CPAP ___10.0__ -cmH2O PEEP ____5.0__ -cmH2O Set_RR ___14.0__ -b/min Drawn By MM - Date/Time Notified____ 04:39:00 -_ Oxygen Device 1 ____BIPAP - Notified By MM - B 756 -mmHg tO2 ___15.0__ -Vol% Fan test _Positive -
--- NOTE | 2017-01-26 05:00 | NUR ---
GI Inc of 2 formed stools overnight. Halle-care given. Denies pain or SOB. No acute changes tonight.
[2017-01-26] MEDS: Isosorbide Mononitrate 30 mg ER24 Tablet PO SCH ×2 (08:53→21:09)
[2017-01-26] MEDS: Insulin LISPRO 300 Unit/3 mL Inj SUBQ SCH ×4 (08:54→21:31)
[2017-01-26] MEDS: Furosemide 10 mg/mL 10 mL Inj IVPUSH SCH ×2 (10:13→21:08)
--- NOTE | 2017-01-26 11:45 | PCM.PNMED ---
Subjective Date of Service Jan 26, 2017 Subjective Mr. Walsh is an 81-year-old male with type 2 diabetes mellitus, hypertension and CAD with history of MT presenting as a referral from [facility] for shortness of breath. Patient is accompanied by his at bedside. Today, he feels much better. He is off of BiPAP and doing well on oxygen by nasal cannula. He states that his breathing is better. He is concerned about the hematoma and feels like it has gotten bigger. He does not have chest pain. Exam Vital Signs Vital Sign - Last Date Time Temp Pulse Resp B/P Pulse Ox O2 Delivery O2 Flow Rate FiO2 01/26/17 10:42 Nasal Cannula 3.00 01/26/17 09:15 68 01/26/17 08:00 36.5 16 120/66 93 01/26/17 04:31 45 Intake and Output 01/25/17 01/25/17 01/26/17 Cumulative From/Thru 15:00 23:00 07:00 01/09/17 17:14 - 01/26/17 06:24 Intake Total 1313 ml 472 ml 68153 ml Output Total 1200 ml 700 ml 80203 ml Balance 113 ml -228 ml 9509 ml Intake Oral 672 ml 472 ml 80196 ml IV Total 641 ml 37733 ml Output Urine Total 1200 ml 700 ml 93856 ml Estimated Blood Loss 1 ml # Voids 38 # Bowel Movements 3 17 Exam General: Elderly patient sitting upright in bed with nasal cannula in place. No acute distress, well-developed, well-nourished, appropriately interactive. HEENT: Normocephalic, atraumatic. External ears without defect. Pupils equal, round, and reactive to light. Oral mucosa pink with dry mucosa. Cardiovascular: Regular rate and rhythm. No murmurs, rubs, or gallops appreciated Pulmonary: Diffuse crackles bilaterally at the bases. No wheezing. Increased respiratory effort with use of accessory muscles. Pacemaker site with palpable, soft hematoma softball sized that is not actively bleeding with pressure dressing in place. Ecchymosis extending from incision site to left flank. Abdomen: Bowel tones present. Soft, nontender, nondistended. Extremities: Left lower extremity with trace pitting edema, improving, with dry skin. Right lower extremity with trace edema limited to inferior mcgee, improving , with dry skin. Onychomycosis of bilateral toenails. Neurological: Cranial nerves grossly intact. Normal muscle strength, tone, and bulk. Psychiatric: Normal mood and affect. Alert and oriented to person, place, and time. IVs and Medications Medications Reviewed: Medications were reviewed in detail Lab and Diagnostics Result Diagram: 01/26/17 0320 01/26/17 032 X-Rays, CTs and MRIs PROCEDURE: US VEINOUS LEG DUPLEX UNILATERAL, LEFT IMPRESSION: Occlusive thrombus within the left superficial femoral vein, popliteal vein, and posterior tibial vein. These findings were discussed with Dr. Lopez at 7:45 PM by the eligibility technician. Approved by: Rosaura Angel M.D. on 01/09/2017 at 20:08 PROCEDURE: X-RAY CHEST ONE VIEW, PORTABLE IMPRESSION: 1. Low lung volumes and basilar opacities which may represent atelectasis, although aspiration/infection could also be considered in the differential. 2. Interstitial opacities and cardiomegaly suspicious for fluid overload. Approved by: Rosaura Angel M.D. on 01/09/2017 at 18:50 PROCEDURE: US RENAL SONOGRAM IMPRESSION: 1. Mild cortical thinning and increased renal cortical echogenicity bilaterally , compatible with medical renal disease. 2. No hydronephrosis. Approved by: Carissa Boyd M.D. on 01/10/2017 at 12:45 PROCEDURE: X-RAY CHEST ONE VIEW, PORTABLE IMPRESSION: Dual-chamber cardiac pacemaking device leads in normal position, generalized moderate pulmonary edema, small subpulmonic right pleural effusion is again seen. Approved by: Ermias Major M.D. on 01/17/2017 at 17:26 PROCEDURE: X-RAY CHEST ONE VIEW, PORTABLE IMPRESSION: 1. Interval increase in mid/basilar patchy airspace opacities consistent with worsening atelectasis, aspiration and/or pneumonia. Recommend clinical correlation. 2. Small pleural effusions redemonstrated. Approved by: Tracy Carr MD, PhD on 01/22/2017 at 11:47 PROCEDURE: X-RAY CHEST ONE VIEW, PORTABLE IMPRESSION: Mild edema and/or pneumonia involving the lung bases with no significant change. Approved by: Tracy Carr MD, PhD on 01/25/2017 at 17:06 Cardiac Echo Impressions Echocardiogram Report Interpretation Summary The left ventricle is mildly dilated. The ejection fraction is estimated to be 35-40%. There is severe hypokinesis of the mid and distal septum, and akinesis of the septum and posterior wall. The anterior wall is hypokinetic and in apical inferior wall is akinetic. 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 There is severe pulmonary hypertension. The right ventricular systolic pressure is estimated at 89 mmHg assuming a right atrial pressure of 15 mm Hg. The right ventricle is mildly dilated. The right ventricular systolic function is normal. There is moderate to severe mitral regurgitation. There is moderate biatrial enlargement. The patient was in third degree heart block during the exam. The heart rate ranged between 50-70 bpm during the study. No other echocardiographic abnormalities seen. Reading Physician:04: 50 PM Assessment & Plan #. Acute on chronic systolic congestive heart failure exacerbation. Present on admission. Active -CXR continues to show moderate pulmonary edema. Clinically, patient with lower extremity edema and mild JVD. He continues to have dyspnea. He is currently on BiPAP. Possible pleural effusion. -Echocardiogram showed EF of 35-40% and severe pulmonary hypertension. -[place] 8784 [place] [address]. He is still positive 12.8 L today. -Monitor I/O and daily weights -Incentive spirometer -Carvedilol 6.25 mg BID -Lasix gtt stopped. Furosemide 60 mg iv BID. , per nephrology -Isosorbide mononitrate 30 mg BID -CT scan shows bilateral large pleural effusions. -right side Diagnostic/therapeutic thoracentesis 01/24/17 3.2 L transudate drained that shows no bacterial growth to date -Pulmonology consulted and following. Their time and recommendations are appreciated. -Albumin 25 g given 01/25/2017 #. 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 Unknown acuity. Present on admission. Improved. -Pacemaker placement 01/17/17 -Hemoglobin and hematocrit stable -Resume physical therapy # bilateral large pleural effuisns due to CHF,poa,acute -right side drained and 3 .2 L transudate removed # pacemaker insertion site hematoma ,not poa,acute -stable now --Sandbag placed for pressure along with a pressure dressing on pacemaker site hematoma. -Discontinue heparin once warfarin is therapeutic. Warfarin was chosen so that a reversal is available.INR subtherapeutic for many days. Discussed with pharmacy, will increase dose tonight -Dr. Leiva will monitor the hematoma and perform an incision to drain the hematoma if necessary -Infection prophylaxis of doxycycline 100 mg once daily started at request of cardiology #. Left lower extremity DVT, acute. Present on admission. Active. -Doppler US showed an occlusive thrombus within the left superficial femoral vein, popliteal vein, and posterior tibial vein. -Hemoglobin and hematocrit stable -Heparin gtt to discontinue once warfarin is therapeutic. -Monitor CBC -Warfarin started, pharmacy to dose and their input is appreciated -will consider IVC if anticoagulation needs to be stopped for longer time due to hematoma or other reasons -Continue heparin at low rate secondary to hematoma -Fecal occult positive but need anticoagulation for DVT and possible PE. Continue to monitor H&H. #. Possible pulmonary embolism. Present on admission. Active -Doppler of lower extremities shows left lower extremity DVT -warfarin started as above. -V/Q scan was refused by patient and #. Acute kidney injury on chronic kidney disease. Present on admission. Improving. -Chronic component as patient has longstanding hypertension and CHF and see above -Creatinine 1.70 initially, 2.43 today -Renal ultrasound shows mild cortical thinning and increased renal cortical echogenicity bilaterally -Avoid nephrotoxins,Hold home allopurinol for now. -Resumed chlorthalidone 25 mg once daily. #. 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 Present on admission. Improving. -Renal tubular acidosis, type 4. Likely secondary to chronic kidney disease. Notes from his primary care physician reported CKD stage 3. Prior BUN 34, creatinine 1.41 on 03/22/2016. In 2012, BUN 33, creatinine 1.52. -Lactic acid within normal limits, no ketones but protein in the urine #. Hypertension, chronic. Present on admission -Held patient's home ANDREW inhibitor due to acute kidney injury. -Furosemide 60 mg IV BID as above -Cardiology recommended hydralazine 50 mg every 8 hours for additional blood pressure control. -Decreased hydralazine to BID, consider decreasing to once per day or discontinuing based on stable blood pressure. Consider switching to ANDREW inhibitor if kidney function improves. -Chlorthalidone 25 mg once daily added to regimen #. Bilateral lower leg and right upper extremity edema and erythema, acute. Present on admission. resolved. - Possible cellulitis. It may be stasis dermatitis from chronic venous congestion. . - Streptozyme and MRSA screen negative -US of right upper extremity was negative for DVT. -completed Ceftriaxone -Lotion to be applied as needed for dry skin #. Coronary artery disease, chronic. Present on admission. -Troponin elevated but given SHMUEL and elevated BNP, it is likely from demand ischemia. Echocardiogram shows severe pulmonary hypertension. -Discontinued clopidogrel to help prevent worsening bruising -Stopped aspirin as pt reports not taking this at home #. Acute stress reaction. Present on admission. Improved -Patient denied current suicidal ideation -Psychiatry consulted and their time and recommendations were appreciated. #. Gastroesophageal reflux disease, chronic. Present on admission. -Continued home famotidine #. Diabetes mellitus type II, diet controlled, chronic. Present on admission. -HgbA1c 7.1% Disposition: pending hospital course,hopefully in 2-3 days ,large volume thoracentesis done yesterday VTE Prophylaxis: Other (Heparin gtt) Resuscitation Status: Limited Interventions (DNI) Limited Interventions: Compressions, Cardioversion/Defibrillation, BiPAP, Medications and IV Fluid Attending Statement The patient was seen and examined together with Dr. Jamison on 01/26/2017 and I agree with the history, exam and plan as outlined in the note above. Valencia Jamison DO Jan 26, 2017 11:45 Ever Mejia MD Jan 26, 2017 16:09 thoracentesis done yesterday VTE Prophylaxis: Other (Heparin gtt) Resuscitation Status: Limited Interventions (DNI) Limited Interventions: Compressions, Cardioversion/Defibrillation, BiPAP, Medications and IV Fluid Valencia Jamison DO Jan 26, 2017 11:45
--- NOTE | 2017-01-26 13:49 | PATH ---
SURGICAL PATHOLOGY Attending Physician:Iris Cronin MD CASE STATUS: Signed Out PATIENT NAME: ALISA TERRAZAS PID: [id number] : 1935 DATE COLLECTED:01/24/2017 00:00 SPECIMEN: Pleural fluid thin prep CLINICAL HISTORY: Pleural fluid No ICD-10 code given FINAL DIAGNOSIS: PLEURAL FLUID (SIDE NOT SPECIFIED) (ONE CYTOCENTRIFUGE PREPARATION, ONE THINPREP SLIDE, AND ONE CELL BLOCK): NEGATIVE FOR MALIGNANT CELLS. LYMPHOCYTES AND MESOTHELIAL CELLS PRESENT. ICD10 CODE J90 GROSS DESCRIPTION: Received fresh on 01/25/2017 is approximately 10 cc of clear yellow fluid. Prepared are one cell block, one cytospin, and one ThinPrep slides. vo/hk ICD-9 CODES: CPT CODES: 1: 50637, 03182, 62350 Electronically Signed Out Gustavo Lainez MD [facility] [address], [place] [address] Technical component performed at [facility], [facility] [address], [place], [address]
--- NOTE | 2017-01-26 15:22 | PCM.PHAPRO ---
Progress WARFARIN DOSING Indication VTE Home dose NA Dosing Table: (day) one 2 3 4 5 6 7 8 9 10 11 12 13 [facility] gsf gsf GSF GSF GSF Date Jan 23-Dec 27-Jan 2-Jan 3-Jan 4-Jan 5-Jan 6-Jan 7-Jan 8-Jan 9-Jan 10-Jan 11-Jan INR 1.07 1.06 1.1 1.25 1.54 INR change Warf Dose 3 3 4 4 4 a/ Following problems provide rationale for reduced initial dose: CHF, CKD, age, reduced nutrition, elevated INR at baseline (1.11 on admit) INR trending nicely p/ Contine 4mg/d Tom Solares Pharm D Jan 26, 2017 15:22
--- NOTE | 2017-01-26 15:57 | PCM.PNMED ---
Subjective Date of Service Jan 26, 2017 Subjective The patient is continuing to make some slow progress. Once again he is breathing considerably is here and has no evidence of any respiratory distress, accessory muscle use or conversational dyspnea. He is beginning to eat and is able to ambulate. For the last 24 hours he has had 1413 N and 2700 out and his creatinine continues to be stable at 2.37. Exam Vital Signs Vital Sign - Last Date Time Temp Pulse Resp B/P Pulse Ox O2 Delivery O2 Flow Rate FiO2 01/26/17 12:00 36.7 87 26 110/67 95 Nasal Cannula 3.00 01/26/17 04:31 45 Intake and Output 01/25/17 01/25/17 01/26/17 Cumulative From/Thru 14:59 22:59 06:59 01/09/17 17:14 - 01/26/17 06:24 Intake Total 1313 ml 472 ml 21229 ml Output Total 1200 ml 700 ml 97014 ml Balance 113 ml -228 ml 9509 ml Intake Oral 672 ml 472 ml 79118 ml IV Total 641 ml 31329 ml Output Urine Total 1200 ml 700 ml 44395 ml Estimated Blood Loss 1 ml # Voids 38 # Bowel Movements 3 17 Exam Lungs are clear to auscultation but are diminished in both bases about more diminished on the left as compared to right.. Heart is regular w/ Soft systolic murmur. Abdomen is soft without any tenderness rebound guarding masses or hepatosplenomegaly. Extremities not showing any evidence of any clubbing Lab and Diagnostics Result Diagram: 01/26/17 0320 01/26/17 0320 X-Rays, CTs and MRIs PROCEDURE: US VEINOUS LEG DUPLEX UNILATERAL, LEFT IMPRESSION: Occlusive thrombus within the left superficial femoral vein, popliteal vein, and posterior tibial vein. These findings were discussed with Dr. Lopez at 7:[address] scan tech. Approved by: Rosaura Angel M.D. on 01/09/2017 at 20:08 PROCEDURE: X-RAY CHEST ONE VIEW, PORTABLE IMPRESSION: 1. Low lung volumes and basilar opacities which may represent atelectasis, although aspiration/infection could also be considered in the differential. 2. Interstitial opacities and cardiomegaly suspicious for fluid overload. Approved by: Rosaura Angel M.D. on 01/09/2017 at 18:50 PROCEDURE: US RENAL SONOGRAM IMPRESSION: 1. Mild cortical thinning and increased renal cortical echogenicity bilaterally , compatible with medical renal disease. 2. No hydronephrosis. Approved by: Carissa Boyd M.D. on 01/10/2017 at 12:45 PROCEDURE: X-RAY CHEST ONE VIEW, PORTABLE IMPRESSION: Dual-chamber cardiac pacemaking device leads in normal position, generalized moderate pulmonary edema, small subpulmonic right pleural effusion is again seen. Approved by: Ermias Major M.D. on 01/17/2017 at 17:26 PROCEDURE: X-RAY CHEST ONE VIEW, PORTABLE IMPRESSION: 1. Interval increase in mid/basilar patchy airspace opacities consistent with worsening atelectasis, aspiration and/or pneumonia. Recommend clinical correlation. 2. Small pleural effusions redemonstrated. Approved by: Tracy Carr MD, PhD on 01/22/2017 at 11:47 PROCEDURE: X-RAY CHEST ONE VIEW, PORTABLE IMPRESSION: Mild edema and/or pneumonia involving the lung bases with no significant change. Approved by: Tracy Carr MD, PhD on 01/25/2017 at 17:06 Cardiac Echo Impressions Echocardiogram Report Interpretation Summary The left ventricle is mildly dilated. The ejection fraction is estimated to be 35-40%. There is severe hypokinesis of the mid and distal septum, and akinesis of the septum and posterior wall. The anterior wall is hypokinetic and in apical inferior wall is akinetic. 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 There is severe pulmonary hypertension. The right ventricular systolic pressure is estimated at 89 mmHg assuming a right atrial pressure of 15 mm Hg. The right ventricle is mildly dilated. The right ventricular systolic function is normal. There is moderate to severe mitral regurgitation. There is moderate biatrial enlargement. The patient was in third degree heart block during the exam. The heart rate ranged between 50-70 bpm during the study. No other echocardiographic abnormalities seen. Reading Physician:04: 50 PM Assessment & Plan Impression #1 acute kidney injury secondary to cardiac dysfunction/congestive heart failure #2 hypertension with hypertensive heart disease and hypertensive nephrosclerosis #3 diabetic nephropathy Recommendations #1 I feel we get him ambulating and moving around this probably help him as much as any medication we can give him. With that being said I would like to continue on his current medical therapy. VTE Prophylaxis: Other (Heparin gtt) Resuscitation Status: Limited Interventions (DNI) Limited Interventions: Compressions, Cardioversion/Defibrillation, BiPAP, Medications and IV Fluid Jakob Bell DO Jan 26, 2017 15:57
--- NOTE | 2017-01-26 17:08 | NUR ---
Social Work: Continued Discharge Planning D: Pt discussed in am rounds. pt is not medically stable for discharge at this time. Pt is still on BIPAP and Heparin drip. No anticipated discharge timeframe discussed but anticipate pt will be here over the weekend given his current clinical presentation. Pt's was provided with HH CHOICE LIST and information to review on choices however she has yet to provide a preference. COMMERCIAL LOAN COORDINATOR attempted to meet with pt and spouse at bedside to discuss HH Preference. Pt was resting soundly and pt's was not present. A family friend was present who states that the will not be back for several hours. COMMERCIAL LOAN COORDINATOR unable to follow up with preference at this time. A: Pt who previously lived at home with spouse. P: Anticipate pt to discharge home with HH for RN, PT, ORTHOTIC/PROSTHETIC PRACTITIONER once medically stable; COMMERCIAL LOAN COORDINATOR to follow up with pt's about HH preference prior to d/c. ELEAZAR Amador
--- NOTE | 2017-01-26 17:11 | NUR ---
Activity/Pacemaker site Patient a/o x 2-3, off on date. Patient denies pain, sob or nausea. bipap removed this a.m. O2 @ 3 L applied sat 91-94%. Patient oob with walker and one person assist to bsc. Patient had soft brown stool with streaks of blood x 1. VSS, tele paced. Left chest wall at pacemaker site swollen with bruising semisoft to touch this a.m. This afternoon assessment swelling has increased and more firm to touch, patient denies pain at pacemaker site. auger supervisor in to assess and Dr Abbie carter and will be up this evening to assess.
[2017-01-26] MEDS: Heparin 25K Unit/500mL 0.45 NS 25,000 UNIT in IV Premix 1 EACH IV SCH (17:36)
--- NOTE | 2017-01-26 18:33 | NUR ---
Pressure drsg/Espino Espino discont 01/26/17 @ 1800, patient HNV. Dr. Leiva returned paged and orders recieved to apply pressure drsg to pacemaker site. Patient denied pain when drsg applied.
--- NOTE | 2017-01-26 19:11 | PROG NOTE ---
[address] [address] PROGRESS NOTE PATIENT: ALISA TERRAZAS : 1935 MR#: [id number] ADMIT: 01/09/2017 JOB ID: [id number] DATE: 01/26/2017 PULMONARY PROGRESS NOTE: The patient is an 81-year-old man with ischemic cardiomyopathy, type 2 diabetes, seen in followup for bilateral pleural effusions, status post thoracentesis. INTERVAL HISTORY: He is down to 3 L nasal cannula from 6 L yesterday. Renal function slowly improving. He is concerned about increasing hematoma over his pacemaker on the left upper chest. Denies any chest pain. REVIEW OF SYSTEMS: No fevers, chills. PHYSICAL EXAMINATION: Vital signs reviewed. Temperature 36.6, pulse 75, respirations 26, BP 123/66. Sats 94% on 3 L nasal cannula. He is much more alert and conversant compared to yesterday. Chest has some decreased breath sounds at both bases. Heart is irregular. No murmurs. LABORATORIES: Reviewed. Notable for pleural fluid analysis showing 73 white cells, 95 red cells, 41% lymphocytes and 38% monocytes. LDH 53. Protein 0.8, consistent with transudate. Pleural glucose is 178. Also pleural fluid cytology is now resulted and shows negative no malignant cells. Chest x-ray shows resolution of right-sided pleural effusion with diaphragm now visible. He still has a small left pleural effusion. ASSESSMENT AND RECOMMENDATIONS: 1. Bilateral right greater than left pleural effusion, status post thoracentesis January 24. 2. Transudative right pleural fluid likely due to heart failure. 3. Acute hypoxic respiratory failure--on an intermittent bilateral positive airway pressure alternating with nasal cannula. 4. Acute on chronic kidney injury. 5. Decompensated heart failure. An 81-year-old man with decompensated heart failure, kidney injury, and respiratory failure secondary to that. It has been difficult to diurese him without hurting his kidneys. Thoracentesis on January 24 resulted in removal of 1.8 L of clear yellow transudative fluid on the right. This is negative on cytology for malignant cells as well. He is doing a little bit better but not significantly better. He continues to get IV diuresis which is being managed by Nephrology. Frankly, I am not sure that there is much else to contribute in this case from a pulmonary standpoint. He is using BiPAP at nighttime and p.r.n. during the day. His oxygenation has improved slightly. I think his effusion on the left is pretty small and I am not sure that he would get much benefit from tapping this. More important is to keep him as dry as we can, taking his kidney function into consideration and maintaining nocturnal and p.r.n. daytime BiPAP. I am available for issues over the weekend. Please contact me if needed.
[2017-01-26] MEDS ORDERED: 0.9% Sodium Chloride 1,000 ML ONE (19:21)
[2017-01-26] MEDS: Nitroglycerin 50 mg/250 mL D5W Premix IV SCH (20:05)
[2017-01-26] MEDS ORDERED: 0.9% Sodium Chloride 100 ML ONE (20:59)
[2017-01-27] VITALS (11 sets, daily range): BP systolic 114–132; BP diastolic 64–74; PULSE 66–96; RESP 18–24; O2SAT 92–98
[2017-01-27 04:34] LABS: Mean Corpuscular Hemoglobin 29.4 pg (27.0-35.0)
[2017-01-27 05:10] LABS: INR 1.93 ratio
--- NOTE | 2017-01-27 06:31 | NUR ---
Heparin PTT 90.0 per lab. notified with orders to decrease heparin gtt to 1150units/hr and recheck PTT in 6 hours. Next PTT scheduled for 1100. No active s/s bleeding noted. Currently resting without any complaints.
[2017-01-27] MEDS: Insulin LISPRO 300 Unit/3 mL Inj SUBQ SCH ×4 (09:34→22:35)
[2017-01-27] MEDS: Isosorbide Mononitrate 30 mg ER24 Tablet PO SCH ×2 (09:34→21:04)
[2017-01-27] MEDS: Furosemide 10 mg/mL 10 mL Inj IVPUSH SCH (09:59)
--- NOTE | 2017-01-27 11:21 | PCM.PNMED ---
Subjective Date of Service Jan 27, 2017 Subjective Patient continues to improve. His renal function is about the same however he has had 1500 mL of urine out. His catheter has been removed and he is up and able to sit in a chair. His appetite is good and he denies any chest pain, shortness of breath, nausea or vomiting. His blood pressures have been good also. This morning his sodium is 135, potassium 3.8, chloride 92, echo 31, BUN and creatinine are 88 and 2.36 respectively. Exam Vital Signs Vital Sign - Last Date Time Temp Pulse Resp B/P Pulse Ox O2 Delivery O2 Flow Rate FiO2 01/27/17 09:15 71 01/27/17 09:05 37.3 20 124/68 97 Nasal Cannula 3.00 01/26/17 04:31 45 Intake and Output 01/26/17 01/26/17 01/27/17 Cumulative From/Thru 15:00 23:00 07:00 01/09/17 17:14 - 01/27/17 06:33 Intake Total 1154 ml 512 ml 60802 ml Output Total 800 ml 500 ml 65971 ml Balance 354 ml 12 ml 9875 ml Intake Oral 572 ml 236 ml 93466 ml IV Total 582 ml 276 ml 08648 ml Output Urine Total 800 ml 500 ml 70246 ml Estimated Blood Loss 1 ml # Voids 38 # Bowel Movements 1 18 Exam Neck is supple without adenopathy thyromegaly or jugular venous distention. Lungs are clear to auscultation. Sounds are diminished in both bases. Heart was regular with soft systolic murmur. Abdomen is soft without any tenderness or rebound guarding masses or hepatosplenomegaly. She is not short evidence of any edema. Lab and Diagnostics Result Diagram: 01/27/17 0405 01/27/17 0405 X-Rays, CTs and MRIs PROCEDURE: US VEINOUS LEG DUPLEX UNILATERAL, LEFT IMPRESSION: Occlusive thrombus within the left superficial femoral vein, popliteal vein, and posterior tibial vein. These findings were discussed with Dr. Lopez at 7:45 PM by the vtc technician. Approved by: Rosaura Angel M.D. on 01/09/2017 at 20:08 PROCEDURE: X-RAY CHEST ONE VIEW, PORTABLE IMPRESSION: 1. Low lung volumes and basilar opacities which may represent atelectasis, although aspiration/infection could also be considered in the differential. 2. Interstitial opacities and cardiomegaly suspicious for fluid overload. Approved by: Rosaura Angel M.D. on 01/09/2017 at 18:50 PROCEDURE: US RENAL SONOGRAM IMPRESSION: 1. Mild cortical thinning and increased renal cortical echogenicity bilaterally , compatible with medical renal disease. 2. No hydronephrosis. Approved by: Carissa Boyd M.D. on 01/10/2017 at 12:45 PROCEDURE: X-RAY CHEST ONE VIEW, PORTABLE IMPRESSION: Dual-chamber cardiac pacemaking device leads in normal position, generalized moderate pulmonary edema, small subpulmonic right pleural effusion is again seen. Approved by: Ermias Major M.D. on 01/17/2017 at 17:26 PROCEDURE: X-RAY CHEST ONE VIEW, PORTABLE IMPRESSION: 1. Interval increase in mid/basilar patchy airspace opacities consistent with worsening atelectasis, aspiration and/or pneumonia. Recommend clinical correlation. 2. Small pleural effusions redemonstrated. Approved by: Tracy Carr MD, PhD on 01/22/2017 at 11:47 PROCEDURE: X-RAY CHEST ONE VIEW, PORTABLE IMPRESSION: Mild edema and/or pneumonia involving the lung bases with no significant change. Approved by: Tracy Carr MD, PhD on 01/25/2017 at 17:06 Cardiac Echo Impressions Echocardiogram Report Interpretation Summary The left ventricle is mildly dilated. The ejection fraction is estimated to be 35-40%. There is severe hypokinesis of the mid and distal septum, and akinesis of the septum and posterior wall. The anterior wall is hypokinetic and in apical inferior wall is akinetic. 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 There is severe pulmonary hypertension. The right ventricular systolic pressure is estimated at 89 mmHg assuming a right atrial pressure of 15 mm Hg. The right ventricle is mildly dilated. The right ventricular systolic function is normal. There is moderate to severe mitral regurgitation. There is moderate biatrial enlargement. The patient was in third degree heart block during the exam. The heart rate ranged between 50-70 bpm during the study. No other echocardiographic abnormalities seen. Reading Physician:04: 50 PM Assessment & Plan Impression #1 acute kidney injury which appears to be multifactorial and slowly resolving #2 hypertension with hypertensive heart disease and hypertensive nephrosclerosis with congestive heart failure #3 diabetic nephropathy Recommendations #1 I would recommend stopping the intravenous furosemide and switch to torsemide 20 mg orally twice a day. VTE Prophylaxis: Other (Heparin gtt) Resuscitation Status: Limited Interventions (DNI) Limited Interventions: Compressions, Cardioversion/Defibrillation, BiPAP, Medications and IV Fluid Jakob Bell DO Jan 27, 2017 11:21
--- NOTE | 2017-01-27 12:46 | PCM.PNMED ---
Subjective Date of Service Jan 27, 2017 Subjective Mr. Walsh is an 81-year-old male with type 2 diabetes mellitus, hypertension and CAD with history of [place] presenting as a referral from [facility] for shortness of breath. Patient is accompanied by his at bedside. He continues to feel well this morning. He denies dyspnea, chest pain, or abdominal pain. The hematoma became larger last night and a pressure dressing was placed again. Exam Vital Signs Vital Sign - Last Date Time Temp Pulse Resp B/P Pulse Ox O2 Delivery O2 Flow Rate FiO2 01/27/17 12:07 37.0 66 18 132/64 98 Nasal Cannula 3.00 01/26/17 04:31 45 Intake and Output 01/26/17 01/26/17 01/27/17 Cumulative From/Thru 14:59 22:59 06:59 01/09/17 17:14 - 01/27/17 06:33 Intake Total 1154 ml 512 ml 92401 ml Output Total 800 ml 500 ml 36795 ml Balance 354 ml 12 ml 9875 ml Intake Oral 572 ml 236 ml 89492 ml IV Total 582 ml 276 ml 62710 ml Output Urine Total 800 ml 500 ml 28572 ml Estimated Blood Loss 1 ml # Voids 38 # Bowel Movements 1 18 Exam General: Elderly patient sitting upright in bed with nasal cannula in place. No acute distress, well-developed, well-nourished, appropriately interactive. HEENT: Normocephalic, atraumatic. External ears without defect. Pupils equal, round, and reactive to light. Oral mucosa pink with dry mucosa. Cardiovascular: Regular rate and rhythm. No murmurs, rubs, or gallops appreciated Pulmonary: Diffuse crackles bilaterally at the bases. No wheezing. Increased respiratory effort with use of accessory muscles. Pacemaker site with palpable, soft hematoma softball sized that is not actively bleeding with pressure dressing in place. Ecchymosis extending from incision site to left flank. Abdomen: Bowel tones present. Soft, nontender, nondistended. Extremities: Bilateral lower extremity with trace edema with dry skin. Onychomycosis of bilateral toenails. Neurological: Cranial nerves grossly intact. Normal muscle strength, tone, and bulk. Psychiatric: Normal mood and affect. Alert and oriented to person, place, and time. IVs and Medications Medications Reviewed: Medications were reviewed in detail Lab and Diagnostics Result Diagram: 01/27/17 0405 01/27/17 0405 X-Rays, CTs and MRIs PROCEDURE: US VEINOUS LEG DUPLEX UNILATERAL, LEFT IMPRESSION: Occlusive thrombus within the left superficial femoral vein, popliteal vein, and posterior tibial vein. These findings were discussed with Dr. Lopez at 7:45 PM by the industrial technology education teacher. Approved by: Rosaura Angel M.D. on 01/09/2017 at 20:08 PROCEDURE: X-RAY CHEST ONE VIEW, PORTABLE IMPRESSION: 1. Low lung volumes and basilar opacities which may represent atelectasis, although aspiration/infection could also be considered in the differential. 2. Interstitial opacities and cardiomegaly suspicious for fluid overload. Approved by: Rosaura Angel M.D. on 01/09/2017 at 18:50 PROCEDURE: US RENAL SONOGRAM IMPRESSION: 1. Mild cortical thinning and increased renal cortical echogenicity bilaterally , compatible with medical renal disease. 2. No hydronephrosis. Approved by: Carissa Boyd M.D. on 01/10/2017 at 12:45 PROCEDURE: X-RAY CHEST ONE VIEW, PORTABLE IMPRESSION: Dual-chamber cardiac pacemaking device leads in normal position, generalized moderate pulmonary edema, small subpulmonic right pleural effusion is again seen. Approved by: Ermias Major M.D. on 01/17/2017 at 17:26 PROCEDURE: X-RAY CHEST ONE VIEW, PORTABLE IMPRESSION: 1. Interval increase in mid/basilar patchy airspace opacities consistent with worsening atelectasis, aspiration and/or pneumonia. Recommend clinical correlation. 2. Small pleural effusions redemonstrated. Approved by: Tracy Carr MD, PhD on 01/22/2017 at 11:47 PROCEDURE: X-RAY CHEST ONE VIEW, PORTABLE IMPRESSION: Mild edema and/or pneumonia involving the lung bases with no significant change. Approved by: Tracy Carr MD, PhD on 01/25/2017 at 17:06 Cardiac Echo Impressions Echocardiogram Report Interpretation Summary The left ventricle is mildly dilated. The ejection fraction is estimated to be 35-40%. There is severe hypokinesis of the mid and distal septum, and akinesis of the septum and posterior wall. The anterior wall is hypokinetic and in apical inferior wall is akinetic. 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 There is severe pulmonary hypertension. The right ventricular systolic pressure is estimated at 89 mmHg assuming a right atrial pressure of 15 mm Hg. The right ventricle is mildly dilated. The right ventricular systolic function is normal. There is moderate to severe mitral regurgitation. There is moderate biatrial enlargement. The patient was in third degree heart block during the exam. The heart rate ranged between 50-70 bpm during the study. No other echocardiographic abnormalities seen. Reading Physician:04: 50 PM Assessment & Plan # pacemaker insertion site hematoma ,not poa,acute -Sandbag placed for pressure along with a pressure dressing on pacemaker site hematoma. -Discontinued heparin. Warfarin was chosen so that a reversal is available. -Dr. Leiva will monitor the hematoma and perform an incision to drain the hematoma if necessary -Infection prophylaxis of doxycycline 100 mg once daily started at request of cardiology #. Acute on chronic systolic congestive heart failure exacerbation. Present on admission. Active -CXR continues to show moderate pulmonary edema. Clinically, patient initially with lower extremity edema, mild JVD, and dyspnea. Pleural effusions bilaterally. -Echocardiogram showed EF of 35-40% and severe pulmonary hypertension. -[place] 8784 [place] [address]. -Monitor I/O and daily weights -Incentive spirometer -Carvedilol 6.25 mg BID -Lasix stopped. Torsemide 40 mg PO BID -Isosorbide mononitrate 30 mg BID # bilateral large pleural effusions due to CHF,poa,acute -right side Diagnostic/therapeutic thoracentesis 01/24/17 3.2 L transudate drained that shows no bacterial growth to date and no malignant cells. -Pulmonology consulted and following. Their time and recommendations are appreciated. -Albumin 25 g given 01/25/2017 #. Left lower extremity DVT, acute. Present on admission. Active. -Doppler US showed an occlusive thrombus within the left superficial femoral vein, popliteal vein, and posterior tibial vein. -Hemoglobin and hematocrit stable -Monitor CBC -Warfarin, pharmacy to dose and their input is appreciated -will consider IVC if anticoagulation needs to be stopped for longer time due to hematoma or other reasons -Fecal occult positive but need anticoagulation for DVT and possible PE. Continue to monitor H&H. #. Possible pulmonary embolism. Present on admission. Active -Doppler of lower extremities shows left lower extremity DVT -warfarin started as above. -V/Q scan was refused by patient and #. Acute kidney injury on chronic kidney disease. Present on admission. Improving. -Chronic component as patient has longstanding hypertension and CHF and see above -Creatinine 1.70 initially, 2.36 today -Renal ultrasound shows mild cortical thinning and increased renal cortical echogenicity bilaterally -Avoid nephrotoxins,Hold home allopurinol for now. -Resumed chlorthalidone 25 mg once daily. -Diuretics as above #. 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 Unknown acuity. Present on admission. Improved. -Pacemaker placement 01/17/17 -Hemoglobin and hematocrit stable -Resume physical therapy #. 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 Present on admission. Improving. -Renal tubular acidosis, type 4. Likely secondary to chronic kidney disease. Notes from his primary care physician reported CKD stage 3. Prior BUN 34, creatinine 1.41 on 03/22/2016. In 2012, BUN 33, creatinine 1.52. -Lactic acid within normal limits, no ketones but protein in the urine #. Hypertension, chronic. Present on admission -Held patient's home ANDREW inhibitor due to acute kidney injury. -Furosemide 60 mg IV BID as above -Cardiology recommended hydralazine 50 mg every 8 hours for additional blood pressure control. -Decreased hydralazine to BID, consider decreasing to once per day or discontinuing based on stable blood pressure. Consider switching to ANDREW inhibitor if kidney function improves. -Chlorthalidone 25 mg once daily added to regimen #. Bilateral lower leg and right upper extremity edema and erythema, acute. Present on admission. resolved. - Possible cellulitis. It may be stasis dermatitis from chronic venous congestion. . - Streptozyme and MRSA screen negative -US of right upper extremity was negative for DVT. -completed Ceftriaxone -Lotion to be applied as needed for dry skin #. Coronary artery disease, chronic. Present on admission. -Troponin elevated but given SHMUEL and elevated BNP, it is likely from demand ischemia. Echocardiogram shows severe pulmonary hypertension. -Discontinued clopidogrel to help prevent worsening bruising -Stopped aspirin as pt reports not taking this at home #. Acute stress reaction. Present on admission. Improved -Patient denied current suicidal ideation -Psychiatry consulted and their time and recommendations were appreciated. -Patient is cleared to be discharged home once medically stable. #. Gastroesophageal reflux disease, chronic. Present on admission. -Continued home famotidine #. Diabetes mellitus type II, diet controlled, chronic. Present on admission. -HgbA1c 7.1% Disposition: Discharge home with home health services including physical therapy and nursing once anticoagulation regimen in place. VTE Prophylaxis: Other (Heparin gtt) Resuscitation Status: Limited Interventions (DNI) Limited Interventions: Compressions, Cardioversion/Defibrillation, BiPAP, Medications and IV Fluid Attending Statement The patient was seen and examined together with Dr. Jamison on 01/27/2017 and I agree with the history, exam and plan as outlined in the note above. Valencia Jamison DO Jan 27, 2017 12:46 Ever Mejia MD Jan 27, 2017 17:03
--- NOTE | 2017-01-27 14:06 | NUR ---
[facility] signed
--- NOTE | 2017-01-27 14:40 | PCM.PHAPRO ---
Progress Date of Service: Jan 27, 2017 Warfarin dosing -Jan 23-Dec 27-Jan 2-Jan 3-Jan 27-Jan 1.11 1.06 1.10 1.25 1.53 1.93 -0.05 0.04 0.15 0.28 0.4 3mg 3mg 4mg 4mg 6mg 3mg Milad Rouse Jan 27, 2017 14:40
--- NOTE | 2017-01-27 18:03 | NUR ---
Activity/outpt/Heparin Patient a/o x 3, denies pain, pressure drsg intact on left chest wall all shift. Heparin gtt discont at 1000. Patient oob amb in room and waller with walker and sba, surekha fair. Patient sat in the chair all shift, surekha well. VSS, tele paced. Patient voiding per urinal and brp.
[2017-01-28] VITALS (12 sets, daily range): BP systolic 118–129; BP diastolic 66–75; PULSE 61–78; RESP 16–19; O2SAT 94–97
[2017-01-28 03:10] LABS: Mean Corpuscular Volume 90.8 fL (81-100)
[2017-01-28 07:34] LABS: INR 2.31 ratio
[2017-01-28] MEDS: Insulin LISPRO 300 Unit/3 mL Inj SUBQ SCH ×4 (08:00→21:10)
--- NOTE | 2017-01-28 11:14 | PCM.PNMED ---
Subjective Date of Service Jan 28, 2017 Subjective Patient's renal function is a bit worse today with a creatinine of 2.59. His BUN has also gone up to 93. In the last 24 hours she has had 1407 100 out. Despite all of this the patient is continuing to show considerable improvement. He was able to take a shower today, is eating quite well, without any nausea, vomiting or diarrhea. He is breathing quite comfortably and denies any chest pain. The hematoma on his left chest appears to be stable and not enlarging any further. Exam Vital Signs Vital Sign - Last Date Time Temp Pulse Resp B/P Pulse Ox O2 Delivery O2 Flow Rate FiO2 01/28/17 10:38 Room Air 01/28/17 09:58 78 01/28/17 08:43 36.8 19 129/71 96 2.50 01/26/17 04:31 45 Intake and Output 01/27/17 01/27/17 01/28/17 Cumulative From/Thru 15:00 23:00 07:00 01/09/17 17:14 - 01/28/17 04:43 Intake Total 888 ml 640 ml 83091 ml Output Total 200 ml 750 ml 02277 ml Balance 688 ml -110 ml 08013 ml Intake Oral 760 ml 640 ml 51821 ml IV Total 128 ml 14986 ml Output Urine Total 200 ml 750 ml 59060 ml Estimated Blood Loss 1 ml # Voids 1 3 42 # Bowel Movements 2 20 Exam Neck is supple without adenopathy, thyromegaly, or jugular venous distention. A hematoma over his left upper chest appears to be stable and not sleeping any blood. Lungs clear with a few scattered rhonchi with diminished breath sounds in both bases. Heart is regular rhythmical with a soft systolic murmur. Abdomen is soft without any tenderness rebound guarding masses or hepatosplenomegaly. Extremities no tremor any evidence of any clubbing cyanosis or edema. Lab and Diagnostics Result Diagram: 01/28/17 0255 01/28/17 025 X-Rays, CTs and MRIs PROCEDURE: US VEINOUS LEG DUPLEX UNILATERAL, LEFT IMPRESSION: Occlusive thrombus within the left superficial femoral vein, popliteal vein, and posterior tibial vein. These findings were discussed with Dr. Lopez at 7:45 PM by the tomography technologist. Approved by: Rosaura Angel M.D. on 01/09/2017 at 20:08 PROCEDURE: X-RAY CHEST ONE VIEW, PORTABLE IMPRESSION: 1. Low lung volumes and basilar opacities which may represent atelectasis, although aspiration/infection could also be considered in the differential. 2. Interstitial opacities and cardiomegaly suspicious for fluid overload. Approved by: Rosaura Angel M.D. on 01/09/2017 at 18:50 PROCEDURE: US RENAL SONOGRAM IMPRESSION: 1. Mild cortical thinning and increased renal cortical echogenicity bilaterally , compatible with medical renal disease. 2. No hydronephrosis. Approved by: Carissa Boyd M.D. on 01/10/2017 at 12:45 PROCEDURE: X-RAY CHEST ONE VIEW, PORTABLE IMPRESSION: Dual-chamber cardiac pacemaking device leads in normal position, generalized moderate pulmonary edema, small subpulmonic right pleural effusion is again seen. Approved by: Ermias Major M.D. on 01/17/2017 at 17:26 PROCEDURE: X-RAY CHEST ONE VIEW, PORTABLE IMPRESSION: 1. Interval increase in mid/basilar patchy airspace opacities consistent with worsening atelectasis, aspiration and/or pneumonia. Recommend clinical correlation. 2. Small pleural effusions redemonstrated. Approved by: Tracy Carr MD, PhD on 01/22/2017 at 11:47 PROCEDURE: X-RAY CHEST ONE VIEW, PORTABLE IMPRESSION: Mild edema and/or pneumonia involving the lung bases with no significant change. Approved by: Tracy Carr MD, PhD on 01/25/2017 at 17:06 Cardiac Echo Impressions Echocardiogram Report Interpretation Summary The left ventricle is mildly dilated. The ejection fraction is estimated to be 35-40%. There is severe hypokinesis of the mid and distal septum, and akinesis of the septum and posterior wall. The anterior wall is hypokinetic and in apical inferior wall is akinetic. 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 There is severe pulmonary hypertension. The right ventricular systolic pressure is estimated at 89 mmHg assuming a right atrial pressure of 15 mm Hg. The right ventricle is mildly dilated. The right ventricular systolic function is normal. There is moderate to severe mitral regurgitation. There is moderate biatrial enlargement. The patient was in third degree heart block during the exam. The heart rate ranged between 50-70 bpm during the study. No other echocardiographic abnormalities seen. Reading Physician:04: 50 PM Assessment & Plan Impression #1 acute kidney injury which appears to be multifactorial secondary to severe hypotension, congestive heart failure,. #2 superimposed prerenal azotemia from large hematoma to the chest #3 diabetic nephropathy #4 hypertension with hypertensive heart disease and hypertensive nephrosclerosis. Recommendations #1 continue to follow his lab, intake and output and hemoglobin level. VTE Prophylaxis: Other (Heparin gtt) VTE Mechanical Devices: Intermittant Pneumatic CD Resuscitation Status: Limited Interventions (DNI) Limited Interventions: Compressions, Cardioversion/Defibrillation, BiPAP, Medications and IV Fluid Jakob Bell DO Jan 28, 2017 11:14
[2017-01-28] MEDS: Isosorbide Mononitrate 30 mg ER24 Tablet PO SCH ×2 (11:24→21:06)
--- NOTE | 2017-01-28 12:00 | PCM.PNMED ---
Subjective Date of Service Jan 28, 2017 Subjective Overnight: No acute events overnight Today: He reports continuing swelling around the left shoulder site. He otherwise has no complaints and denies shortness of breath. Exam Vital Signs Vital Sign - Last Date Time Temp Pulse Resp B/P Pulse Ox O2 Delivery O2 Flow Rate FiO2 01/28/17 10:38 Room Air 01/28/17 09:58 78 01/28/17 08:43 36.8 19 129/71 96 2.50 01/26/17 04:31 45 Intake and Output 01/27/17 01/27/17 01/28/17 Cumulative From/Thru 15:00 23:00 07:00 01/09/17 17:14 - 01/28/17 04:43 Intake Total 888 ml 640 ml 90850 ml Output Total 200 ml 750 ml 25429 ml Balance 688 ml -110 ml 67338 ml Intake Oral 760 ml 640 ml 21242 ml IV Total 128 ml 41694 ml Output Urine Total 200 ml 750 ml 51553 ml Estimated Blood Loss 1 ml # Voids 1 3 42 # Bowel Movements 2 20 Exam General: Alert, Oriented X3, Cooperative, No Acute Distress Head: Normocephalic, atraumatic. External ears normal. Eyes: PERRLA, EOMI. Anicteric sclerae. Mouth: Mouth Normal, Mucous Membranes Moist/[place] Neck: Neck supple with full range of motion. Chest & Lungs: Diffuse crackles bilaterally at the bases. Increased respiratory effort with use of accessory muscles. Cardiovascular: Regular Rate/Rhythm, Normal S1, Normal S2, No Murmurs/Rubs/ Gallops Abdomen: Non-tender, Non-distended, No masses, Normoactive bowel tones, Soft Musculoskeletal: Normal Range of Motion Extremities: No lower extremity edema. Pacemaker site on left chest with palpable, soft hematoma softball sized that is not actively bleeding with pressure dressing in place. Ecchymosis extending from incision site to left flank. Neurological: Grossly Neurologically Intact, Normal Speech Lab and Diagnostics Result Diagram: 01/28/1725401/28/17254 X-Rays, CTs and MRIs PROCEDURE: US VEINOUS LEG DUPLEX UNILATERAL, LEFT IMPRESSION: Occlusive thrombus within the left superficial femoral vein, popliteal vein, and posterior tibial vein. These findings were discussed with Dr. Lopez at 7:45 PM by the cardiopulmonary technician. Approved by: Rosaura Angel M.D. on 01/09/2017 at 20:08 PROCEDURE: X-RAY CHEST ONE VIEW, PORTABLE IMPRESSION: 1. Low lung volumes and basilar opacities which may represent atelectasis, although aspiration/infection could also be considered in the differential. 2. Interstitial opacities and cardiomegaly suspicious for fluid overload. Approved by: Rosaura Angel M.D. on 01/09/2017 at 18:50 PROCEDURE: US RENAL SONOGRAM IMPRESSION: 1. Mild cortical thinning and increased renal cortical echogenicity bilaterally , compatible with medical renal disease. 2. No hydronephrosis. Approved by: Carissa Boyd M.D. on 01/10/2017 at 12:45 PROCEDURE: X-RAY CHEST ONE VIEW, PORTABLE IMPRESSION: Dual-chamber cardiac pacemaking device leads in normal position, generalized moderate pulmonary edema, small subpulmonic right pleural effusion is again seen. Approved by: Ermias Major M.D. on 01/17/2017 at 17:26 PROCEDURE: X-RAY CHEST ONE VIEW, PORTABLE IMPRESSION: 1. Interval increase in mid/basilar patchy airspace opacities consistent with worsening atelectasis, aspiration and/or pneumonia. Recommend clinical correlation. 2. Small pleural effusions redemonstrated. Approved by: Tracy Carr MD, PhD on 01/22/2017 at 11:47 PROCEDURE: X-RAY CHEST ONE VIEW, PORTABLE IMPRESSION: Mild edema and/or pneumonia involving the lung bases with no significant change. Approved by: Tracy Carr MD, PhD on 01/25/2017 at 17:06 Cardiac Echo Impressions Echocardiogram Report Interpretation Summary The left ventricle is mildly dilated. The ejection fraction is estimated to be 35-40%. There is severe hypokinesis of the mid and distal septum, and akinesis of the septum and posterior wall. The anterior wall is hypokinetic and in apical inferior wall is akinetic. 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 There is severe pulmonary hypertension. The right ventricular systolic pressure is estimated at 89 mmHg assuming a right atrial pressure of 15 mm Hg. The right ventricle is mildly dilated. The right ventricular systolic function is normal. There is moderate to severe mitral regurgitation. There is moderate biatrial enlargement. The patient was in third degree heart block during the exam. The heart rate ranged between 50-70 bpm during the study. No other echocardiographic abnormalities seen. Reading Physician:04: 50 PM Assessment & Plan Mr. Walsh is an 81-year-old male with type 2 diabetes mellitus, hypertension and CAD with history of [place] presenting as a transfer from [facility] for shortness of breath. Admitted for left leg DVT and presumed PE, CHF exacerbation , bilateral pleural effusions, SHMUEL, and second degree block. # Pacemaker insertion site hematoma ,not poa,acute -Sandbag placed for pressure along with a pressure dressing on pacemaker site hematoma. Possibly being removed today. -Discontinued heparin. Warfarin was chosen so that a reversal is available. -Dr. Leiva will monitor the hematoma and perform an incision to drain the hematoma if necessary -Infection prophylaxis of doxycycline 100 mg once daily started at request of cardiology -Will need to be monitored for 1-2 days on therapeutic INR to make sure hematoma is stable #. Acute on chronic systolic congestive heart failure exacerbation. Present on admission. Active -CXR continues to show moderate pulmonary edema. Clinically, patient initially with lower extremity edema, mild JVD, and dyspnea. Pleural effusions bilaterally. -Echocardiogram showed EF of 35-40% and severe pulmonary hypertension. -[place] 8784 [place] [address]. -Monitor I/O and daily weights -Incentive spirometer -Carvedilol 6.25 mg BID -Lasix stopped. Torsemide 40 mg PO BID -Isosorbide mononitrate 30 mg BID # Bilateral large pleural effusions due to CHF, acute. Present on admission. -Right diagnostic/therapeutic thoracentesis 01/24/17 3.2 L transudate drained that shows no bacterial growth to date and no malignant cells. -Pulmonology consulted and following. Their time and recommendations are appreciated. -Albumin 25 g given 01/25/2017 #. Left lower extremity DVT, acute. Present on admission. Active. -Doppler US showed an occlusive thrombus within the left superficial femoral vein, popliteal vein, and posterior tibial vein. -Hemoglobin and hematocrit stable -Monitor CBC -Warfarin, pharmacy to dose and their input is appreciated -Will consider IVC filter if anticoagulation needs to be stopped for longer time due to hematoma or other reasons -Fecal occult positive but need anticoagulation for DVT and possible PE. Continue to monitor H&H. #. Possible pulmonary embolism. Present on admission. Active -Doppler of lower extremities shows left lower extremity DVT -Warfarin started as above. -V/Q scan was refused by patient and #. Acute kidney injury on chronic kidney disease. Present on admission. Improving. -Chronic component as patient has longstanding hypertension and CHF and see above. Renal ultrasound shows mild cortical thinning and increased renal cortical echogenicity bilaterally -Creatinine 1.70 initially, 2.36 today -Avoid nephrotoxins,Hold home allopurinol for now. -Chlorthalidone 25 mg PO daily -Torsemide 40 mg PO BID #. 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 Unknown acuity. Present on admission. Improved. -Pacemaker placement 01/17/17 -Hemoglobin and hematocrit stable -Resume physical therapy #. 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 Present on admission. Improving. -Renal tubular acidosis, type 4. Likely secondary to chronic kidney disease. Notes from his primary care physician reported CKD stage 3. Prior BUN 34, creatinine 1.41 on 03/22/2016. In 2012, BUN 33, creatinine 1.52. -Lactic acid within normal limits, no ketones but protein in the urine #. Hypertension, chronic. Present on admission -Held patient's home ANDREW inhibitor due to acute kidney injury. -Chlorthalidone and torsemide as above -Cardiology recommended hydralazine 50 mg every 8 hours for additional blood pressure control. -Decreased hydralazine to BID, consider decreasing to once per day or discontinuing based on stable blood pressure. Consider switching to ANDREW inhibitor if kidney function improves. #. Bilateral lower leg and right upper extremity edema and erythema, acute. Present on admission. resolved. - Possible cellulitis. It may be stasis dermatitis from chronic venous congestion. Streptozyme and MRSA screen negative. US of right upper extremity was negative for DVT. -Completed Ceftriaxone -Lotion to be applied as needed for dry skin #. Coronary artery disease, chronic. Present on admission. -Troponin elevated but given SHMUEL and elevated BNP, it is likely from demand ischemia. Echocardiogram shows severe pulmonary hypertension. -Discontinued clopidogrel to help prevent worsening bruising -Stopped aspirin as pt reports not taking this at home #. Acute stress reaction. Present on admission. Improved -Patient denied current suicidal ideation -Psychiatry consulted and their time and recommendations were appreciated. -Patient is cleared to be discharged home once medically stable. #. Gastroesophageal reflux disease, chronic. Present on admission. -Continued home famotidine #. Diabetes mellitus type II, diet controlled, chronic. Present on admission. -HgbA1c 7.1% Disposition: Discharge home with home health services including physical therapy and nursing . Will monitor hematoma for 1-2 days on warfarin, then patient will likely be appropriate for discharge home on 01/30. VTE Prophylaxis: Other (Heparin gtt) VTE Mechanical Devices: Intermittant Pneumatic CD Resuscitation Status: Limited Interventions (DNI) Limited Interventions: Compressions, Cardioversion/Defibrillation, BiPAP, Medications and IV Fluid Attending Statement The patient was seen and examined together with Dr. Stephens on 01/28/2017 and I agree with the history, exam and plan as outlined in the note above. Nolberto Stephens Jan 28, 2017 11:59 Ever Mejia MD Jan 28, 2017 15:08
--- NOTE | 2017-01-28 14:22 | PCM.PHAPRO ---
Progress Date of Service: Jan 28, 2017 Warfarin dosing A/ Patient's INR is therapeutic at 2.31, but continues to rise sharply. P/ Continue with a second day of a reduced dose of 3mg (due to the sharp rise in INR) and reevaluate tomorrow. Milad Rouse Jan 28, 2017 14:22
--- NOTE | 2017-01-28 18:54 | NUR ---
Resp/Pacemaker/Activity Patient a/o x 3, denies pain or nausea, taking diet well. O 2 RA sat 90-92% WA and 87-90% when asleep, O 2 nc @ 2 L reapplied, sat 91-94%. Patient oob to chair several times this shift, amb with walker and sba. Patient showered with min assist. Amb in waller with PT surekha well. VSS, tele vpaced. Pressure drsg removed this a.m. per Dario MORILLO, pacemaker site remains swollen with bruising. No increase in swelling noted this shift. will cont to monitor.
[2017-01-29] VITALS (7 sets, daily range): BP systolic 120–125; BP diastolic 61–69; PULSE 64–81; RESP 16–18; O2SAT 94–97
--- NOTE | 2017-01-29 00:42 | NUR ---
Hematoma/Transfer of Care Per day RN report, pressure dressing on pacer site hematoma taken off during day and nursing to monitor for growth and to inform cardiology if this occurred. At shift change both nurses in room to evaluate hematoma for baseline. Per day RN swelling had increased some, day RN described change as swelling from "sandwich size to hamburger size." electric transfer operator in room to evaluate as well and applied pressure dressing. Night cardiology Dr. Garvin notified about change in size of hematoma, agreed w/ pressure dressing application. Night resident also informed, no order changes now but to watch for changes in BP or mental status changes. Hematoma outlined for continual monitoring. Measured [id number], round like half a softball. Arm put back in sling. Alls vitals stable, pt tele is paced 60s-70s and denies pain. Transfer of care to Christa RN at about 2330, report about above, hematoma evaluated together, no change in size from start of shift, new pressure dressing applied.
--- NOTE | 2017-01-29 03:18 | NUR ---
Hematoma: Hematoma to left chest pacemaker site measures 13cm x 13cm, round and raised (appearance of softball cut in half under skin). Pressure dressing reapplied to site at 2345 during assessment. No change in hematoma size during shift. Left arm in sling for majority of shift, pt. encouraged to use left arm sling. No drainage from site. Pacemaker incision is well approximated, clean. and dry. Telemetry V-paced with occasional PVC's. Will continue to monitor.
[2017-01-29 03:43] LABS: BASOPHILS % (AUTO) 1.2 % (0-3); EOSINOPHILS % (AUTO) 2.9 % (0-5); MONOCYTES % (AUTO) 11.3 % (4-12); Mean Corpuscular Hemoglobin 30.3 pg (27.0-35.0); Mean Corpuscular Volume 91.6 fL (81-100); NEUTROPHILS % (AUTO) 60.5 % (40-74); Platelet Count 209 bil/L (150-400)
[2017-01-29 03:59] LABS: INR 2.88 ratio
--- NOTE | 2017-01-29 06:56 | PCM.PNMED ---
Subjective Date of Service Jan 29, 2017 Subjective Overnight: nursing reports slight increase in size of the hematoma on left chest pacemaker site measures 13cm x 13cm, round and raised (appearance of softball cut in half under skin). However, morning nurse did not notice any change. Otherwise pacemaker incision is well approximated, clean. and dry. Telemetry V-paced with occasional PVC's. No other acute event. Today: Patient reports to feel well with no complaint. He insists that he will see Dr. Valencia Saldana as outpatient. His , however, is concerned about his rising Cr, stating that he was 2.07 at one point. Patient seems to have exertional dyspnea while walking in the halls. Otherwise, they have no other complaint. Exam Vital Signs Vital Sign - Last Date Time Temp Pulse Resp B/P Pulse Ox O2 Delivery O2 Flow Rate FiO2 01/29/17 03:34 36.9 64 122/61 94 Nasal Cannula 2.00 01/28/17 20:40 17 01/26/17 04:31 45 Intake and Output 01/28/17 01/28/17 01/29/17 Cumulative From/Thru 14:59 22:59 06:59 01/09/17 17:14 - 01/29/17 04:49 Intake Total 640 ml 440 ml 14205 ml Output Total 78301 ml Balance 640 ml 440 ml 45593 ml Intake Oral 640 ml 440 ml 19407 ml IV Total 74817 ml Output Urine Total 81420 ml Estimated Blood Loss 1 ml # Voids 3 1 46 # Bowel Movements 2 1 23 Exam General: Alert, Cooperative, No Acute Distress Head: Normocephalic, atraumatic. External ears normal. Eyes: EOMI. Anicteric sclerae. Mouth: Mouth Normal, Mucous Membranes Moist/[place] Neck: Neck supple with full range of motion. Chest & Lungs: Diffuse crackles bilaterally at the bases. Cardiovascular: Regular Rate/Rhythm, Normal S1, Normal S2, No Murmurs/Rubs/ Gallops Abdomen: Non-tender, Non-distended, No masses, Normoactive bowel tones, Soft Musculoskeletal: Normal Range of Motion Extremities: +1 pitting edema on Left LE, trace edema on the right LE. Pacemaker site on left chest with palpable, soft hematoma softball sized that is not actively bleeding with pressure dressing in place. Ecchymosis extending from incision site to left flank. Neurological: Grossly Neurologically Intact, Normal Speech IVs and Medications Medications Reviewed: Medications were reviewed in detail Lab and Diagnostics Result Diagram: 01/29/1733401/29/17 033 X-Rays, CTs and MRIs PROCEDURE: US VEINOUS LEG DUPLEX UNILATERAL, LEFT IMPRESSION: Occlusive thrombus within the left superficial femoral vein, popliteal vein, and posterior tibial vein. These findings were discussed with Dr. Lopez at 7:45 PM by the hearing aid technician. Approved by: Rosaura Angel M.D. on 01/09/2017 at 20:08 PROCEDURE: X-RAY CHEST ONE VIEW, PORTABLE IMPRESSION: 1. Low lung volumes and basilar opacities which may represent atelectasis, although aspiration/infection could also be considered in the differential. 2. Interstitial opacities and cardiomegaly suspicious for fluid overload. Approved by: Rosaura Angel M.D. on 01/09/2017 at 18:50 PROCEDURE: US RENAL SONOGRAM IMPRESSION: 1. Mild cortical thinning and increased renal cortical echogenicity bilaterally , compatible with medical renal disease. 2. No hydronephrosis. Approved by: Carissa Boyd M.D. on 01/10/2017 at 12:45 PROCEDURE: X-RAY CHEST ONE VIEW, PORTABLE IMPRESSION: Dual-chamber cardiac pacemaking device leads in normal position, generalized moderate pulmonary edema, small subpulmonic right pleural effusion is again seen. Approved by: Ermias Major M.D. on 01/17/2017 at 17:26 PROCEDURE: X-RAY CHEST ONE VIEW, PORTABLE IMPRESSION: 1. Interval increase in mid/basilar patchy airspace opacities consistent with worsening atelectasis, aspiration and/or pneumonia. Recommend clinical correlation. 2. Small pleural effusions redemonstrated. Approved by: Tracy Carr MD, PhD on 01/22/2017 at 11:47 PROCEDURE: X-RAY CHEST ONE VIEW, PORTABLE IMPRESSION: Mild edema and/or pneumonia involving the lung bases with no significant change. Approved by: Tracy Carr MD, PhD on 01/25/2017 at 17:06 PROCEDURE: X-RAY CHEST ONE VIEW, PORTABLE IMPRESSION: No significant change in mild edema and/or diffuse bilateral pneumonia. Approved by: Tracy Carr MD, PhD on 01/29/2017 at 16:37 Cardiac Echo Impressions Echocardiogram Report Interpretation Summary The left ventricle is mildly dilated. The ejection fraction is estimated to be 35-40%. There is severe hypokinesis of the mid and distal septum, and akinesis of the septum and posterior wall. The anterior wall is hypokinetic and in apical inferior wall is akinetic. 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 There is severe pulmonary hypertension. The right ventricular systolic pressure is estimated at 89 mmHg assuming a right atrial pressure of 15 mm Hg. The right ventricle is mildly dilated. The right ventricular systolic function is normal. There is moderate to severe mitral regurgitation. There is moderate biatrial enlargement. The patient was in third degree heart block during the exam. The heart rate ranged between 50-70 bpm during the study. No other echocardiographic abnormalities seen. Reading Physician:04: 50 PM Assessment & Plan Mr. Walsh is an 81-year-old male with type 2 diabetes mellitus, hypertension and CAD with history of [place] presenting as a transfer from [facility] for shortness of breath. Admitted for left leg DVT and presumed PE, CHF exacerbation , bilateral pleural effusions, SHMUEL, and second degree block. # Pacemaker insertion site hematoma ,not poa,acute -Sandbag placed for pressure along with a pressure dressing on pacemaker site hematoma. -Warfarin was chosen so that a reversal is available per cardiology. -Dr. Leiva will monitor the hematoma and perform an incision to drain the hematoma if necessary -Infection prophylaxis of doxycycline 100 mg once daily started at request of cardiology -Will need to be monitored for 1-2 days on therapeutic INR to make sure hematoma is stable #. Acute on chronic systolic congestive heart failure exacerbation. Present on admission. Active -CXR continues to show moderate pulmonary edema. Clinically, patient initially with lower extremity edema, mild JVD, and dyspnea. Pleural effusions bilaterally. -Echocardiogram showed EF of 35-40% and severe pulmonary hypertension. -[place] 8784 [place] [address]. -Monitor I/O and daily weights -Incentive spirometer -Carvedilol 6.25 mg BID -Continue Torsemide 40 mg PO BID per nephrology -Continue Isosorbide mononitrate 30 mg BID # Bilateral large pleural effusions due to CHF, acute. Present on admission. -Right diagnostic/therapeutic thoracentesis 01/24/17 3.2 L transudate drained that shows no bacterial growth to date and no malignant cells. -Pulmonology consulted and following. Their time and recommendations are appreciated. -Albumin 25 g given 01/25/2017 -CXR rechecked today, which showed no significant change in mild edema and/or diffuse bilateral pneumonia. #. Left lower extremity DVT, acute. Present on admission. Active. -Doppler US showed an occlusive thrombus within the left superficial femoral vein, popliteal vein, and posterior tibial vein. -Hemoglobin and hematocrit stable -Monitor CBC -Warfarin, pharmacy to dose and their input is appreciated -Will consider IVC filter if anticoagulation needs to be stopped for longer time due to hematoma or other reasons -Fecal occult positive but need anticoagulation for DVT and possible PE. Continue to monitor H&H. #. Possible pulmonary embolism. Present on admission. Active -Doppler of lower extremities shows left lower extremity DVT -Warfarin started as above. -INR 2.88 today -V/Q scan was refused by patient and #. Acute kidney injury on chronic kidney disease. Present on admission. Worsening. -Chronic component as patient has longstanding hypertension and CHF and see above. Renal ultrasound shows mild cortical thinning and increased renal cortical echogenicity bilaterally -Creatinine 1.70 initially, 2.6 today -Avoid nephrotoxins,Hold home allopurinol for now. -Appreciate nephrology's recommendations -Chlorthalidone 25 mg PO daily -Torsemide 40 mg PO BID #. 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 Unknown acuity. Present on admission. Improved. -Pacemaker placement 01/17/17 -Hemoglobin and hematocrit stable -Resume physical therapy #. 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 Present on admission. Improving. -Renal tubular acidosis, type 4. Likely secondary to chronic kidney disease. Notes from his primary care physician reported CKD stage 3. Prior BUN 34, creatinine 1.41 on 03/22/2016. In 2012, BUN 33, creatinine 1.52. -Lactic acid within normal limits, no ketones but protein in the urine #. Hypertension, chronic. Present on admission -Held patient's home ANDREW inhibitor due to acute kidney injury. -Chlorthalidone and torsemide as above -Cardiology recommended hydralazine 50 mg every 8 hours for additional blood pressure control. -Decreased hydralazine to BID, consider decreasing to once per day or discontinuing based on stable blood pressure. #. Bilateral lower leg and right upper extremity edema and erythema, acute. Present on admission. resolved. - Possible cellulitis. It may be stasis dermatitis from chronic venous congestion. Streptozyme and MRSA screen negative. US of right upper extremity was negative for DVT. -Completed Ceftriaxone -Lotion to be applied as needed for dry skin #. Coronary artery disease, chronic. Present on admission. -Troponin elevated but given SHMUEL and elevated BNP, it is likely from demand ischemia. Echocardiogram shows severe pulmonary hypertension. -Discontinued clopidogrel to help prevent worsening bruising -Stopped aspirin as pt reports not taking this at home #. Acute stress reaction. Present on admission. Improved -Patient denied current suicidal ideation -Psychiatry consulted and their time and recommendations were appreciated. -Patient is cleared to be discharged home once medically stable. #. Gastroesophageal reflux disease, chronic. Present on admission. -Continued home famotidine #. Diabetes mellitus type II, diet controlled, chronic. Present on admission. -HgbA1c 7.1% Disposition: Discharge home with home health services including physical therapy and nursing . Continue to monitor hematoma on warfarin, then patient will likely be appropriate for discharge home on 01/30. Pain Evaluation: Adequate Pain Control VTE Prophylaxis: Other (Heparin gtt) VTE Mechanical Devices: Intermittant Pneumatic CD Resuscitation Status: Limited Interventions (DNI) Limited Interventions: Compressions, Cardioversion/Defibrillation, BiPAP, Medications and IV Fluid Attending Statement The patient was seen and examined together with Dr. Lainez on 01/29/2017 and I agree with the history, exam and plan as outlined in the note above. . Ernesto Lainez DO Jan 29, 2017 06:56 Milad Tucker MD Jan 30, 2017 07:46
[2017-01-29] MEDS: Insulin LISPRO 300 Unit/3 mL Inj SUBQ SCH ×5 (08:00→20:53)
[2017-01-29] MEDS: Isosorbide Mononitrate 30 mg ER24 Tablet PO SCH ×2 (08:56→20:43)
--- NOTE | 2017-01-29 12:24 | NUR ---
Wound Care [facility] Patient assessed for Stage II pressure ulcer to buttock/sacrum. Wound with no dressing present upon arrival. Periwound and wound bed cleaned with NS. Wound continues Stage II and measures 1.0cm W x 1.0cm L x 0.1cm D with red wound base. Per nursing notes, patient and have been non-compliant with floating heels and turning q2 hours schedule. Nursing repositions and turns patient q2 hours and floats heels. reportedly then removes pillows from under legs and patient turns back on back. Patient reinstructed by nurses at each turn and by customs import specialist at visit today in importance of decreasing pressure to sacrum by turning side to side and floating heels to decrease risk for skin breakdown. Patient continues with blanchable redness to entire sacrum and no progression of pressure ulcer at this time. Recommend continued P500 bed, attempts at turning q2 hours and keeping heels floated. Nursing to change dressing to sacrum q48 hours and prn soiling. Wound Care to follow as needed.
--- NOTE | 2017-01-29 12:51 | PCM.PNMED ---
Subjective Date of Service Jan 29, 2017 Subjective His serum creatinine is essentially unchanged, value of 2.6. He is on torsemide 40 mg twice a day. His is concerned of hematoma over the pacemaker. Exam Vital Signs Vital Sign - Last Date Time Temp Pulse Resp B/P Pulse Ox O2 Delivery O2 Flow Rate FiO2 01/29/17 12:19 36.7 70 18 125/68 95 Nasal Cannula 2.00 01/26/17 04:31 45 Intake and Output 01/28/17 01/28/17 01/29/17 Cumulative From/Thru 15:00 23:00 07:00 01/09/17 17:14 - 01/29/17 04:49 Intake Total 640 ml 440 ml 61558 ml Output Total 71528 ml Balance 640 ml 440 ml 04305 ml Intake Oral 640 ml 440 ml 50588 ml IV Total 52257 ml Output Urine Total 34421 ml Estimated Blood Loss 1 ml # Voids 3 1 46 # Bowel Movements 2 1 23 Exam General: Lying in bed, comfortably, arousable Head: Normal Eyes: PERRLA, EOMI, Scleral Anicteric Nose: Mucous Membr Moist/[place] Mouth: Mucous Membr Moist/[place] Neck: Supple, (+) JVD. Chest & Lungs: coarse crackles bilaterally. left pacemaker, hematoma on left upper chest noted. Cardiovascular: Regular Rate/Rhythm Pulses: Normal carotid, radial, femoral, DP, PT Abdomen: Non-tender, Non-distended, Normoactive bowel tones, Soft Extremities: Trace edema. Lab and Diagnostics Result Diagram: 01/29/17 0335 01/29/17 0335 X-Rays, CTs and MRIs PROCEDURE: US VEINOUS LEG DUPLEX UNILATERAL, LEFT IMPRESSION: Occlusive thrombus within the left superficial femoral vein, popliteal vein, and posterior tibial vein. These findings were discussed with Dr. Lopez at 7:45 PM by the angio technologist. Approved by: Rosaura Angel M.D. on 01/09/2017 at 20:08 PROCEDURE: X-RAY CHEST ONE VIEW, PORTABLE IMPRESSION: 1. Low lung volumes and basilar opacities which may represent atelectasis, although aspiration/infection could also be considered in the differential. 2. Interstitial opacities and cardiomegaly suspicious for fluid overload. Approved by: Rosaura Angel M.D. on 01/09/2017 at 18:50 PROCEDURE: US RENAL SONOGRAM IMPRESSION: 1. Mild cortical thinning and increased renal cortical echogenicity bilaterally , compatible with medical renal disease. 2. No hydronephrosis. Approved by: Carissa Boyd M.D. on 01/10/2017 at 12:45 PROCEDURE: X-RAY CHEST ONE VIEW, PORTABLE IMPRESSION: Dual-chamber cardiac pacemaking device leads in normal position, generalized moderate pulmonary edema, small subpulmonic right pleural effusion is again seen. Approved by: Ermias Major M.D. on 01/17/2017 at 17:26 PROCEDURE: X-RAY CHEST ONE VIEW, PORTABLE IMPRESSION: 1. Interval increase in mid/basilar patchy airspace opacities consistent with worsening atelectasis, aspiration and/or pneumonia. Recommend clinical correlation. 2. Small pleural effusions redemonstrated. Approved by: Tracy Carr MD, PhD on 01/22/2017 at 11:47 PROCEDURE: X-RAY CHEST ONE VIEW, PORTABLE IMPRESSION: Mild edema and/or pneumonia involving the lung bases with no significant change. Approved by: Tracy Carr MD, PhD on 01/25/2017 at 17:06 Cardiac Echo Impressions Echocardiogram Report Interpretation Summary The left ventricle is mildly dilated. The ejection fraction is estimated to be 35-40%. There is severe hypokinesis of the mid and distal septum, and akinesis of the septum and posterior wall. The anterior wall is hypokinetic and in apical inferior wall is akinetic. 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 There is severe pulmonary hypertension. The right ventricular systolic pressure is estimated at 89 mmHg assuming a right atrial pressure of 15 mm Hg. The right ventricle is mildly dilated. The right ventricular systolic function is normal. There is moderate to severe mitral regurgitation. There is moderate biatrial enlargement. The patient was in third degree heart block during the exam. The heart rate ranged between 50-70 bpm during the study. No other echocardiographic abnormalities seen. Reading Physician:04: 50 PM Assessment & Plan 1. SHMUEL on CKD secondary to ATN and CRS. -Worsening kidney function 2. Acute on chronic systolic CHF/right sided HF/pulm HTN. 3. left LE DVT. 4. 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 - complicated by hematoma. 5. Pleural effusion status post paracentesis 6. HTN with hypertensive nephrosclerosis. 7. DM with diabetic nephropathy. Plan: Repeat bladder scan, UA, urine eosinophils. Continue torsemide to 40 mg twice a day. Repeat BMP in the morning. Check complement 3 and 4. VTE Prophylaxis: Other (Heparin gtt) VTE Mechanical Devices: Intermittant Pneumatic CD Resuscitation Status: Limited Interventions (DNI) Limited Interventions: Compressions, Cardioversion/Defibrillation, BiPAP, Medications and IV Fluid Marisel Newman MD Jan 29, 2017 12:51
--- NOTE | 2017-01-29 15:58 | DRSVH ---
PROCEDURE: X-RAY CHEST ONE VIEW, PORTABLE ([id number]) INDICATIONS: SOB TECHNIQUE: One view of the chest was acquired. COMPARISON: [facility], CR, XR CHEST 1VW (PORTABLE), 01/25/2017, 11:29. FINDINGS: Surgical changes and devices: Cardiac pacer is stable. Lungs and pleura: Small left-sided pleural fluid collection is noted. . interstitium is prominent and mild edema is suspected as well as bibasilar airspace opacities. Small effusions.. Mediastinum: Mediastinal contours appear normal. Heart size is enlarged. Bones and chest wall: No suspicious bony lesions. Overlying soft tissues appear unremarkable. IMPRESSION: No significant change in mild edema and/or diffuse bilateral pneumonia. Dictated by: Oscar Holder [facility] Interpreted: Tracy Carr MD on 01/29/2017 at 15:56 Transcribed by: DES on 01/29/2017 at 15:57 Approved by: Tracy Carr MD, PhD on 01/29/2017 at 16:37
--- NOTE | 2017-01-29 16:29 | NUR ---
Social Work Note: Continued Discharge Planning Data& Assessment: SW met with pt and pt at bedside to discuss discharge planning. Pt and pt continue to decline SNF and would like to go home with home health services. Pt requested to meet with the liaisons from both [facility]. SW requested the liaisons introduce themselves to pt and pt at bedside in the next 1-2 days. SW emphasized that Home health does not provide in home caregiving and in home caregiving is typically private pay (25-30$ an hour). Pt provided with caregiving resources and decline SW help in obtaining quotes. SW to follow up with pt and pt tomorrow regarding home health preference after they have met with the liaisons. Pt and pt decline any other needs at this time. SW to continue to follow. Plan: Anticipated discharge home with home health PT, RN, CRISTINA and SW. SW to follow up with pt and pt tomorrow regarding home health preference after they have met with the liaisons. Pt and pt decline any other needs at this time. SW to continue to follow. ELEAZAR Hernandez
[2017-01-29 17:17] LABS: APPEARANCE,URINE CLEAR (CLEAR,HAZY); COLOR,URINE YELLOW (YELLOW); OCCULT BLOOD,URINE NEGATIVE (NEGATIVE); UROBILINOGEN,URINE NORMAL (NORMAL)
--- NOTE | 2017-01-29 18:28 | NUR ---
L. chest dressing, O2, and Coumadin teaching L. chest dressing CDI unchanged from the start of shift. No signs of active bleeding. New arm sling ordered from CS. Applied arm sling to pt's L. arm to remind pt. not to use his L. arm. Instructed pt. and on activity restriction post pacemaker placement. He required 1p assist with sit to stand (due to unable to use both arms). Pt. could transfer from bed/chair to bathroom with SBA. SpO2 low 90s on 1.5 L/min O2 by NC. He desaturated to 88% on room air. Educated pt. and on Coumadin (indications, side effects, precautions, and food choices). Printed booklet given.
[2017-01-30] VITALS (10 sets, daily range): BP systolic 106–125; BP diastolic 54–74; PULSE 59–76; RESP 16–24; O2SAT 93–97
[2017-01-30 03:55] LABS: EOSINOPHILS % (AUTO) 2.3 % (0-5); MONOCYTES % (AUTO) 12.4 % (4-12); Mean Corpuscular Hemoglobin 29.2 pg (27.0-35.0); Mean Corpuscular Volume 91.8 fL (81-100); NEUTROPHILS % (AUTO) 56.1 % (40-74); Platelet Count 198 bil/L (150-400)
[2017-01-30 04:19] LABS: INR 3.01 ratio
--- NOTE | 2017-01-30 04:46 | NUR ---
P: urine incontinence I: bladder scan x 3, bed changes x 2 E: Pt very drowsy. Difficult to hold attention. Denies dyspnea, N/V, pain. Post incontinence bladder scanner reading 457ml and later 320ml. Pt used urinal w/ assist, post void bladder scan = 160ml. Pt has not gotten up tonight. L chest w/ pressure dressing. CDI. Diffuse bruising from L side, shoulder, arm, and flank area. Sling on. Tele AV, V paced. BP stable. 1.5 L o2 NC, pt sats in the low to mid 90s. verbalizing great concern for pt's breathing pattern. Feels pt is dyspneic and working hard to breath. Further concern pt is breathing through his mouth which he does not normally do. requesting bipap in the AM hours. Bipap at 30%, sats in the high 90s. Also concern w/ pt drowsiness "I can hardly wake him". Also concern w/ pt's incontinence and the increase in diuretic....
[2017-01-30] MEDS: Insulin LISPRO 300 Unit/3 mL Inj SUBQ SCH ×4 (08:00→21:50)
[2017-01-30] MEDS: Isosorbide Mononitrate 30 mg ER24 Tablet PO SCH ×2 (08:21→21:48)
--- NOTE | 2017-01-30 10:19 | PCM.PNMED ---
Subjective Date of Service Jan 30, 2017 Subjective Overnight: due to miscommunication, patient did not have the bipap on until senior site manager. He was drowsy and difficult to hold attention. His was great concern for his breathing pattern, and requested bipap in the AM hours. No change in the hematoma. Today: Patient reports to feel much better and more alert this morning. He has good appetite and normal voiding/stooling. He denies any symptoms this morning. His requests that they stay at the hospital one more day so she can get all the medical equipments for him before discharge. Exam Vital Signs Vital Sign - Last Date Time Temp Pulse Resp B/P Pulse Ox O2 Delivery O2 Flow Rate FiO2 01/30/17 08:16 36.5 73 24 113/63 95 Nasal Cannula 1.50 01/30/17 04:41 30 Intake and Output 01/29/17 01/29/17 01/30/17 Cumulative From/Thru 15:00 23:00 07:00 01/09/17 17:14 - 01/30/17 06:03 Intake Total 500 ml 240 ml 35887 ml Output Total 600 ml 500 ml 95951 ml Balance -100 ml -260 ml 40936 ml Intake Oral 500 ml 240 ml 80090 ml IV Total 0 ml 89733 ml Output Urine Total 600 ml 500 ml 46512 ml Estimated Blood Loss 1 ml # Voids 3 49 # Bowel Movements 1 0 24 Exam General: Alert, Cooperative, No Acute Distress Head: Normocephalic, atraumatic. External ears normal. Eyes: EOMI. Anicteric sclerae. Mouth: Mouth Normal, Mucous Membranes Moist/[place] Neck: Neck supple with full range of motion. Chest & Lungs: Diffuse crackles bilaterally at the bases. Cardiovascular: Regular Rate/Rhythm, Normal S1, Normal S2, No Murmurs/Rubs/ [place] Abdomen: Non-tender, Non-distended, No masses, Normoactive bowel tones, Soft Musculoskeletal: Normal Range of Motion Extremities: +1 pitting edema on Left LE, trace edema on the right LE. Pacemaker site on left chest with palpable, soft hematoma softball sized that is not actively bleeding with pressure dressing in place. Ecchymosis extending from incision site to left flank. Neurological: Grossly Neurologically Intact, Normal Speech IVs and Medications Medications Reviewed: Medications were reviewed in detail Lab and Diagnostics Result Diagram: 01/30/17 0335 01/30/17 0335 X-Rays, CTs and MRIs PROCEDURE: US VEINOUS LEG DUPLEX UNILATERAL, LEFT IMPRESSION: Occlusive thrombus within the left superficial femoral vein, popliteal vein, and posterior tibial vein. These findings were discussed with Dr. Lopez at 7:45 PM by the weight reducing technician. Approved by: Rosaura Angel M.D. on 01/09/2017 at 20:08 PROCEDURE: X-RAY CHEST ONE VIEW, PORTABLE IMPRESSION: 1. Low lung volumes and basilar opacities which may represent atelectasis, although aspiration/infection could also be considered in the differential. 2. Interstitial opacities and cardiomegaly suspicious for fluid overload. Approved by: Rosaura Angel M.D. on 01/09/2017 at 18:50 PROCEDURE: US RENAL SONOGRAM IMPRESSION: 1. Mild cortical thinning and increased renal cortical echogenicity bilaterally , compatible with medical renal disease. 2. No hydronephrosis. Approved by: Carissa Boyd M.D. on 01/10/2017 at 12:45 PROCEDURE: X-RAY CHEST ONE VIEW, PORTABLE IMPRESSION: Dual-chamber cardiac pacemaking device leads in normal position, generalized moderate pulmonary edema, small subpulmonic right pleural effusion is again seen. Approved by: Ermias Major M.D. on 01/17/2017 at 17:26 PROCEDURE: X-RAY CHEST ONE VIEW, PORTABLE IMPRESSION: 1. Interval increase in mid/basilar patchy airspace opacities consistent with worsening atelectasis, aspiration and/or pneumonia. Recommend clinical correlation. 2. Small pleural effusions redemonstrated. Approved by: Tracy Carr MD, PhD on 01/22/2017 at 11:47 PROCEDURE: X-RAY CHEST ONE VIEW, PORTABLE IMPRESSION: Mild edema and/or pneumonia involving the lung bases with no significant change. Approved by: Tracy Carr MD, PhD on 01/25/2017 at 17:06 PROCEDURE: X-RAY CHEST ONE VIEW, PORTABLE IMPRESSION: No significant change in mild edema and/or diffuse bilateral pneumonia. Approved by: Tracy aCrr MD, PhD on 01/29/2017 at 16:37 Cardiac Echo Impressions Echocardiogram Report Interpretation Summary The left ventricle is mildly dilated. The ejection fraction is estimated to be 35-40%. There is severe hypokinesis of the mid and distal septum, and akinesis of the septum and posterior wall. The anterior wall is hypokinetic and in apical inferior wall is akinetic. 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 There is severe pulmonary hypertension. The right ventricular systolic pressure is estimated at 89 mmHg assuming a right atrial pressure of 15 mm Hg. The right ventricle is mildly dilated. The right ventricular systolic function is normal. There is moderate to severe mitral regurgitation. There is moderate biatrial enlargement. The patient was in third degree heart block during the exam. The heart rate ranged between 50-70 bpm during the study. No other echocardiographic abnormalities seen. Reading Physician:04: 50 PM Assessment & Plan Mr. Walsh is an 81-year-old male with type 2 diabetes mellitus, hypertension and CAD with history of CT presenting as a transfer from [facility] for shortness of breath. Admitted for left leg DVT and presumed PE, CHF exacerbation , bilateral pleural effusions, SHMUEL, and second degree block. # Pacemaker insertion site hematoma ,not poa,acute -Sandbag placed for pressure along with a pressure dressing on pacemaker site hematoma. -Warfarin was chosen so that a reversal is available per cardiology. -Dr. Leiva will monitor the hematoma and perform an incision to drain the hematoma if necessary -Infection prophylaxis of doxycycline 100 mg once daily started at request of cardiology -Will need to be monitored for 1-2 days on therapeutic INR to make sure hematoma is stable #. Acute on chronic systolic congestive heart failure exacerbation. Present on admission. Active -CXR continues to show moderate pulmonary edema. Clinically, patient initially with lower extremity edema, mild JVD, and dyspnea. Pleural effusions bilaterally. -Echocardiogram showed EF of 35-40% and severe pulmonary hypertension. -[place] 8784 [place] [address]. -Monitor I/O and daily weights -Incentive spirometer -Carvedilol 6.25 mg BID -Continue Torsemide 40 mg PO BID per nephrology -Continue Isosorbide mononitrate 30 mg BID # Bilateral large pleural effusions due to CHF, acute. Present on admission. -Right diagnostic/therapeutic thoracentesis 01/24/17 3.2 L transudate drained that shows no bacterial growth to date and no malignant cells. -Pulmonology consulted and following. Their time and recommendations are appreciated. -Albumin 25 g given 01/25/2017 -CXR rechecked 01/29, which showed no significant change in mild edema and/or diffuse bilateral pneumonia. -Patient likely needs to be discharge with a triology ventilator. RT is following. -ABG in the morning #. Left lower extremity DVT, acute. Present on admission. Active. -Doppler US showed an occlusive thrombus within the left superficial femoral vein, popliteal vein, and posterior tibial vein. -Hemoglobin and hematocrit stable -Monitor CBC -Warfarin, pharmacy to dose and their input is appreciated -Will consider IVC filter if anticoagulation needs to be stopped for longer time due to hematoma or other reasons -Fecal occult positive but need anticoagulation for DVT and possible PE. Continue to monitor H&H. #. Possible pulmonary embolism. Present on admission. Active -Doppler of lower extremities shows left lower extremity DVT -Warfarin dose per pharmacy started as above. -INR 3.01 today -V/Q scan was refused by patient and #. Acute kidney injury on chronic kidney disease. Present on admission. Worsening. -Chronic component as patient has longstanding hypertension and CHF and see above. Renal ultrasound shows mild cortical thinning and increased renal cortical echogenicity bilaterally -Creatinine 1.70 initially, 2.6 today -Avoid nephrotoxins,Hold home allopurinol for now. -Appreciate nephrology's recommendations -Chlorthalidone 25 mg PO daily -Torsemide 40 mg PO BID #. 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 Unknown acuity. Present on admission. Improved. -Pacemaker placement 01/17/17 -Hemoglobin and hematocrit stable -Resume physical therapy #. 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 Present on admission. Improving. -Renal tubular acidosis, type 4. Likely secondary to chronic kidney disease. Notes from his primary care physician reported CKD stage 3. Prior BUN 34, creatinine 1.41 on 03/22/2016. In 2012, BUN 33, creatinine 1.52. -Lactic acid within normal limits, no ketones but protein in the urine #. Hypertension, chronic. Present on admission -Held patient's home ANDREW inhibitor due to acute kidney injury. -Chlorthalidone and torsemide as above -Cardiology recommended hydralazine 50 mg every 8 hours for additional blood pressure control. -Continue hydralazine to BID, consider decreasing to once per day or discontinuing based on stable blood pressure. #. Bilateral lower leg and right upper extremity edema and erythema, acute. Present on admission. resolved. -Possible cellulitis. It may be stasis dermatitis from chronic venous congestion. Streptozyme and MRSA screen negative. US of right upper extremity was negative for DVT. -Completed Ceftriaxone -Lotion to be applied as needed for dry skin #. Coronary artery disease, chronic. Present on admission. -Troponin elevated but given SHMUEL and elevated BNP, it is likely from demand ischemia. Echocardiogram shows severe pulmonary hypertension. -Discontinued clopidogrel to help prevent worsening bruising -Stopped aspirin as pt reports not taking this at home #. Acute stress reaction. Present on admission. Improved -Patient denied current suicidal ideation -Psychiatry consulted and their time and recommendations were appreciated. -Patient is cleared to be discharged home once medically stable. #. Gastroesophageal reflux disease, chronic. Present on admission. -Continued home famotidine #. Diabetes mellitus type II, diet controlled, chronic. Present on admission. -HgbA1c 7.1% Disposition: Discharge home with home health services including physical therapy and nursing . Continue to monitor hematoma on warfarin, then patient will likely be appropriate for discharge home tomorrow. Pain Evaluation: Adequate Pain Control VTE Prophylaxis: Theraputic Anticoag with Warfarin VTE Mechanical Devices: Intermittant Pneumatic CD Resuscitation Status: Limited Interventions (DNI) Limited Interventions: Compressions, Cardioversion/Defibrillation, BiPAP, Medications and IV Fluid Attending Statement The patient was seen and examined together with Dr. Lainez on 01/30/2017 and I agree with the history, exam and plan as outlined in the note above. . Ernesto Lainez DO Jan 30, 2017 10:19 Milad Tucker MD Feb 01, 2017 16:20
--- NOTE | 2017-01-30 10:32 | PCM.PHAPRO ---
Progress Date of Service: Jan 30, 2017 Warfarin dosing A/ INR is slightly supratherapeutic at 3.01 today, but I anticipate a drop in the INR tomorrow due to a small dose yesterday. P/ Give a dose of 3mg warfarin and reevaluate tomorrow. Milad Rouse Jan 30, 2017 10:32
--- NOTE | 2017-01-30 12:11 | PCM.PNMED ---
Subjective Date of Service Jan 30, 2017 Subjective The patient put on BiPAP last night. He is doing better today according to his . He is more awake and alert. He is having breakfast. Exam Vital Signs Vital Sign - Last Date Time Temp Pulse Resp B/P Pulse Ox O2 Delivery O2 Flow Rate FiO2 01/30/17 11:09 76 01/30/17 08:16 36.5 24 113/63 95 Nasal Cannula 1.50 01/30/17 04:41 30 Intake and Output 01/29/17 01/29/17 01/30/17 Cumulative From/Thru 15:00 23:00 07:00 01/09/17 17:14 - 01/30/17 06:03 Intake Total 500 ml 240 ml 35379 ml Output Total 600 ml 500 ml 12999 ml Balance -100 ml -260 ml 61756 ml Intake Oral 500 ml 240 ml 53641 ml IV Total 0 ml 69429 ml Output Urine Total 600 ml 500 ml 81376 ml Estimated Blood Loss 1 ml # Voids 3 49 # Bowel Movements 1 0 24 Exam General: Lying in bed, comfortably, arousable Head: Normal Eyes: PERRLA, EOMI, Scleral Anicteric Nose: Mucous Membr Moist/[place] Mouth: Mucous Membr Moist/[place] Chest & Lungs: Decreased breath sound bilaterally right more the left left pacemaker, hematoma on left upper chest noted. Cardiovascular: Regular Rate/Rhythm Pulses: Normal carotid, radial, femoral, DP, PT Abdomen: Non-tender, Non-distended, Normoactive bowel tones, Soft Extremities: Trace edema. Lab and Diagnostics Result Diagram: 01/30/17 0335 01/30/17 0335 X-Rays, CTs and MRIs PROCEDURE: US VEINOUS LEG DUPLEX UNILATERAL, LEFT IMPRESSION: Occlusive thrombus within the left superficial femoral vein, popliteal vein, and posterior tibial vein. These findings were discussed with Dr. Lopez at 7:45 PM by the process environmental technician. Approved by: Rosaura Angel M.D. on 01/09/2017 at 20:08 PROCEDURE: X-RAY CHEST ONE VIEW, PORTABLE IMPRESSION: 1. Low lung volumes and basilar opacities which may represent atelectasis, although aspiration/infection could also be considered in the differential. 2. Interstitial opacities and cardiomegaly suspicious for fluid overload. Approved by: Rosaura Angel M.D. on 01/09/2017 at 18:50 PROCEDURE: US RENAL SONOGRAM IMPRESSION: 1. Mild cortical thinning and increased renal cortical echogenicity bilaterally , compatible with medical renal disease. 2. No hydronephrosis. Approved by: Carissa Boyd M.D. on 01/10/2017 at 12:45 PROCEDURE: X-RAY CHEST ONE VIEW, PORTABLE IMPRESSION: Dual-chamber cardiac pacemaking device leads in normal position, generalized moderate pulmonary edema, small subpulmonic right pleural effusion is again seen. Approved by: Ermias Major M.D. on 01/17/2017 at 17:26 PROCEDURE: X-RAY CHEST ONE VIEW, PORTABLE IMPRESSION: 1. Interval increase in mid/basilar patchy airspace opacities consistent with worsening atelectasis, aspiration and/or pneumonia. Recommend clinical correlation. 2. Small pleural effusions redemonstrated. Approved by: Tracy Carr MD, PhD on 01/22/2017 at 11:47 PROCEDURE: X-RAY CHEST ONE VIEW, PORTABLE IMPRESSION: Mild edema and/or pneumonia involving the lung bases with no significant change. Approved by: Tracy Carr MD, PhD on 01/25/2017 at 17:06 PROCEDURE: X-RAY CHEST ONE VIEW, PORTABLE IMPRESSION: No significant change in mild edema and/or diffuse bilateral pneumonia. Approved by: Tracy Carr MD, PhD on 01/29/2017 at 16:37 Cardiac Echo Impressions Echocardiogram Report Interpretation Summary The left ventricle is mildly dilated. The ejection fraction is estimated to be 35-40%. There is severe hypokinesis of the mid and distal septum, and akinesis of the septum and posterior wall. The anterior wall is hypokinetic and in apical inferior wall is akinetic. 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 There is severe pulmonary hypertension. The right ventricular systolic pressure is estimated at 89 mmHg assuming a right atrial pressure of 15 mm Hg. The right ventricle is mildly dilated. The right ventricular systolic function is normal. There is moderate to severe mitral regurgitation. There is moderate biatrial enlargement. The patient was in third degree heart block during the exam. The heart rate ranged between 50-70 bpm during the study. No other echocardiographic abnormalities seen. Reading Physician:04: 50 PM Assessment & Plan 1. SHMUEL on CKD secondary to ATN and CRS. 2. Acute on chronic systolic CHF/right sided HF/pulm HTN. 3. left LE DVT. 4. 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 - complicated by hematoma. 5. Pleural effusion status post paracentesis 6. HTN with hypertensive nephrosclerosis. 7. DM with diabetic nephropathy. Plan: Continue supportive treatment. Continue torsemide to 40 mg twice a day. Repeat BMP in the morning. VTE Prophylaxis: Other (Heparin gtt) VTE Mechanical Devices: Intermittant Pneumatic CD Resuscitation Status: Limited Interventions (DNI) Limited Interventions: Compressions, Cardioversion/Defibrillation, BiPAP, Medications and IV Fluid Marisel Newman MD Jan 30, 2017 12:11
--- NOTE | 2017-01-30 13:23 | NUR ---
NUTRITION FOLLOW UP Assess: Pt is an 81 yo male admitted w/ DVT, probable PE, and CHF. Cardiology is following, and found intermittent complete heart block w/ metabolic acidosis and ARF. Pt is s/p pacemaker. Nephrology is following SHMUEL, which seems to be worsening. Currently requiring BIPAP on and off. He is on a Heart Healthy/Diabetic diet. orders a substantial amount of food for pt. She is not compliant with dietary restrictions despite discussion about reasoning for pt's current diet order. PO has been good at 50-75% of meals. Wound care is following for Stg 2 PU on buttock/sacrum. PMHx: HTN, Type II DM, CAD w/ history of NM LABS: Reviewed. Cl 93, CO2 32, Bun 98, Sample Washer 2.61, Glu 174, Ca 8.4, Alb 2.9 MEDICATIONS: Reviewed. Coumadin DIET: Heart Healthy/Consistent Carb. PO 50-75% GI symptoms/stool: BMx2, 3/6 SKIN: Stage II sacral PU per WC; Redness and swelling noted on bilateral lower legs ANTHROPOMETRICS: Current Wt: 81.2kg BMI: 25 kg/m2 Admit Wt: 83.7 kg IBW: 75.5 kg ESTIMATED NEEDS: Acute Renal Failure, Wounds Calories: 7549-4618 kcal/day (25-35 kcal/kg BW) Protein: 65-95 g/day (0.8-1.2 g/kg BW) NUTRITION DIAGNOSIS: 1) Altered nutrition-related lab values related to acute renal failure as evidenced by elevated BUN and Sample Washer levels.---PERSISTS 2) Increased nutritional needs related to wound healing as evidenced by Stage II sacral pressure ulcer per Wound Care.--PERSISTS INTERVENTION: 1) Continue Glucerna BID MONITOR/EVALUATE: PO intake, wt, GI, labs, nutrition status, POC. Will continue to monitor per moderate nutritional risk guidelines.
--- NOTE | 2017-01-30 15:22 | NUR ---
Ambulate w/Nsg Pt is released to ambulate w/nsg w/FWW 2-3x/day as pt tolerates. PT will cont to see 2x/week for continued progression of stair navigation ability as well as for progression of AD as per outcomes.
--- NOTE | 2017-01-30 17:06 | NUR ---
Respiratory Plan to attempt tonight without BiPAP unit per MD and check an ABG at ~0500, discussed plan with Pt and at bedside who verbalized understanding of the plan, RT already aware of plan, will notify namita HOOD RN. Addendum: 01/30/17 at 1710 by SANJANA POTTS RN Pt on 1.5L O2 via nasal cannula with SPO2 sats in the mid 90s on 1.5L O2, Pt denies SOB at rest, reported SOB when ambulating with PT.
[2017-01-31] VITALS (9 sets, daily range): BP systolic 116–155; BP diastolic 54–78; PULSE 64–86; RESP 14–20; O2SAT 93–99
--- NOTE | 2017-01-31 04:33 | ABG ---
DateTimeAnalyzed 04:28:00 -_ pH ____7.503 - 7.350 7.450 pCO2 ___45.0__ -mmHg 35.0 45.0 pO2 ___68.0__ -mmHg 69.0 116 HCO3- ___35.0__ -mmol/L 22.0 26.0 ABE ___10.7__ -mmol/L -2.0 2.0 tHb ___12.0__ -g/dL O2Hb ___92.8__ -% COHb ____1.8__ -% MetHb ____1.0__ -% sO2 ___95.5__ -% 25.0 FIO2 ___21.0__ -% Drawn By MD - Date/Time Notified____ 04:33:00 -_ Liter_Flow ____2.0__ -L/min Oxygen Device 1 __CANNULA - Notified By MD - Notified Whom RN J.VANCE - B 760 -mmHg tO2 ___15.7__ -Vol% Fan test _Positive -
[2017-01-31 04:47] LABS: BASOPHILS % (AUTO) 0.9 % (0-3); EOSINOPHILS % (AUTO) 2.3 % (0-5); MONOCYTES % (AUTO) 12.9 % (4-12); Mean Corpuscular Hemoglobin 29.5 pg (27.0-35.0); Mean Corpuscular Volume 91.5 fL (81-100); NEUTROPHILS % (AUTO) 57.9 % (40-74); Platelet Count 199 bil/L (150-400)
[2017-01-31 04:54] LABS: INR 2.98 ratio
--- NOTE | 2017-01-31 05:37 | NUR ---
Respiratory Pt on 1.5L NC at beginning of shift, tolerating well without desaturation. Denies dyspnea. Pt and aware of plan to stay on NC from [id number]; compliant with plan, requested BiPAP from 2200 until 0000. ABG obtained this AM. Pt SBA in room, tolerates well. Hematoma unchanged per assessment, pt denies tenderness, pressure dressing in place. VSS.
[2017-01-31] MEDS: Insulin LISPRO 300 Unit/3 mL Inj SUBQ SCH ×4 (08:00→21:29)
[2017-01-31] MEDS: Isosorbide Mononitrate 30 mg ER24 Tablet PO SCH ×2 (08:51→21:10)
--- NOTE | 2017-01-31 10:07 | PCM.CONPHA ---
Subjective Date of Service: Jan 31, 2017 Warfarin dosing Reason for Pharmacy Consult: Anticoagulation Management Objective Vital Signs Date Time Temp Pulse Resp B/P Pulse Ox O2 Delivery O2 Flow Rate FiO2 01/31/17 08:47 36.6 64 20 116/68 93 Nasal Cannula 1.50 01/31/17 04:26 36.9 71 16 121/78 99 Nasal Cannula 2.00 01/31/17 03:56 79 01/31/17 02:19 95 01/31/17 00:55 36.6 74 16 125/65 95 Nasal Cannula 2.00 01/30/17 21:24 Supplement Oxygen 01/30/17 21:24 36.3 75 16 119/69 96 Nasal Cannula 1.50 01/30/17 16:37 36.6 76 18 125/69 97 Room Air 01/30/17 15:12 Room Air 01/30/17 12:33 36.5 70 20 118/54 94 Nasal Cannula 2.00 01/30/17 11:09 76 Intake and Output 01/28/17 01/29/17 01/30/17 23:59 23:59 23:59 Intake Total 1280 ml 940 ml 1240 ml Output Total 750 ml 600 ml 500 ml Balance 530 ml 340 ml 740 ml Weight (Kilograms): 81.200 Height (Feet): 5 Height (Inches): 11.00 Test 01/09/17 18:12 01/09/17 19:30 01/09/17 20:27 01/09/17 22:20 D-Dimer 4.1mg/L (<0.50) Lactic Acid Level 1.4mmol/L (0.4-2.0) Hold [place] Top Tube Received (Received) Urine Legionella pneumophilia Ag Negative (Negative) Hold Urine Received (Received) Hold Purple Top Tube Received (Received) Hold [place] Top Tube Received (Received) Streptozyme 41.3IU/mL (0.0-200.0) Anti-DNase B (Streptococcal) 204U/mL (0-120) Test 01/10/17 03:21 01/12/17 04:10 01/12/17 14:03 01/13/17 05:10 Hemoglobin A1c 7.1% (4.8-5.6) Troponin T 0.133ug/L (0.0-0.011) Thyroid Stimulating Hormone (TSH) 1.150uIU/mL (0.450-4.500) Urinalysis Comment None Urine Random Creatinine 118mg/dL (22-328) Urine Random Total Protein 27mg/dL (0-15) Urine Protein/Creatinine Ratio 0.23 Uric Acid 5.4mg/dL (2.6-7.2) Globulin (PEP) 2.6g/dL (2.2-3.9) Albumin/Globulin Ratio 1.1 (0.7-1.7) Tewde-8-Lwclpseoc 0.3g/dL (0.0-0.4) Kzree-8-Orxcftyuf 0.8g/dL (0.4-1.0) Beta Globulins 0.9g/dL (0.7-1.3) Gamma Globulins 0.6g/dL (0.4-1.8) Serum Monoclonal Protein Not observedg/dL Protein Electrophoresis Comment Comment (.) Protein Electrophoresis Interpret Comment (.) Test 01/24/17 03:44 01/24/17 17:09 01/26/17 03:20 01/27/17 04:05 Phosphorus Level 3.6mg/dL (2.5-4.9) Magnesium Level 2.1mg/dL (1.6-2.6) Lactate Dehydrogenase 382U/L (100-190) Pro-B-Type Natriuretic Peptide 09424rz/mL (0-486) Body Fluid Source Pleural fluid Body Fluid Color Yellow (Clear) Body Fluid Appearance Clear Body Fluid pH 7.7 (Not Estab.) Body Fluid WBC 73/mm3 Body Fluid RBC 95/mm3 Body Fluid Polynuclear WBCs 1% Body Fluid Lymphocytes 41% Body Fluid Monocytes 38% Body Fluid Eosinophils 0% Body Fluid Basophils 0% Body Fluid Lactate Dehydrogenase 53U/L Pleural Fluid Total Protein 0.8g/dL Pleural Fluid Glucose 178mg/dL Procalcitonin 0.27ng/mL (0.00-0.08) Activated Partial Thromboplast Time 90.0sec (22.8-33.0) Test 01/29/17 03:35 01/29/17 16:55 01/30/17 03:35 01/31/17 04:15 Band Neutrophils % 0% (1-5) Urine Color Yellow (YELLOW) Urine Appearance Clear (CLEAR,HAZY) Urine pH 6.0 (5.0-8.0) Urine Specific [place] <1.005 (1.003-1.035) Urine Protein Negativemg/dL (NEG,TRACE) Urine Glucose (UA) Negativemg/dL (NEGATIVE) Urine Ketones Negativemg/dL (NEGATIVE) Urine Occult Blood Negative (NEGATIVE) Urine Nitrite Negative (NEGATIVE) Urine Bilirubin Negative (NEGATIVE) Urine Urobilinogen Normalmg/dL (NORMAL) Urine Leukocyte Esterase Small (NEGATIVE) Urine RBC 0-2/hpf (0-2) Urine WBC 0-5/hpf (0-5) Urine Epithelial Cells Few/hpf (NONE-MOD) Urine Crystals None seen (NONE SEEN) Urine Bacteria Few/hpf (NONE-FEW) Urine Hyaline Casts Occasional/lpf (NONE) Urine Granular Casts None seen (NONE SEEN) Urine Waxy Casts None seen (NONE SEEN) Urine Red Blood Cell Casts None seen (NONE SEEN) Urine White Blood Cell Casts None seen (NONE SEEN) Urine Mucus None seen (None Seen) Urine Trichomonas None seen (NONE SEEN) Urine Yeast None (NONE SEEN) Urine Culture Reflexed Indicated Complement C3 88mg/dL (82-167) Complement C4 15mg/dL (14-44) White Blood Count 9.9th/mm3 (3.8-10.1) Red Blood Count 4.00mil/mm3 (4.40-5.80) Hemoglobin 11.8g/dL (13.8-17.2) Hematocrit 36.6% (41.0-50.0) Mean Corpuscular Volume 91.5fL (81-100) Mean Corpuscular Hemoglobin 29.5pg (27.0-35.0) Mean Corpuscular Hemoglobin Concent 32.2% (32.0-37.0) Red Cell Distribution Width 16.9% (12.3-15.4) Platelet Count 199bil/L (150-400) Neutrophils (%) (Auto) 57.9% (40-74) Lymphocytes (%) (Auto) 25.6% (14-46) Monocytes (%) (Auto) 12.9% (4-12) Eosinophils (%) (Auto) 2.3% (0-5) Basophils (%) (Auto) 0.9% (0-3) Prothrombin Time 32.6sec (8.1-12.5) Prothromb Time International Ratio 2.98ratio Sodium Level 139mEq/L (134-144) Potassium Level 4.0mEq/L (3.5-5.2) Chloride Level 94mEq/L (97-108) Carbon Dioxide Level 31mmol/L (18-29) Blood Urea Nitrogen 99mg/dL (8-27) Creatinine 2.75mg/dL (0.76-1.27) Estimat Glomerular Filtration Rate 24mL/min (>59) Glucose Level 197mg/dL (60-99) Calcium Level 8.5mg/dL (8.5-10.1) Total Bilirubin 1.0mg/dL (0.0-1.2) Aspartate Amino Transf (AST/SGOT) 30U/L (0-50) Alanine Aminotransferase (ALT/SGPT) 17U/L (0-44) Alkaline Phosphatase 45U/L (25-160) Total Protein 5.6g/dL (6.4-8.4) Albumin 3.0g/dL (3.4-5.0) Assessment/Plan Assessment/Plan Assessment: * Patient is needing warfarin management for a newly diagnosed DVT/PE. * Patient received warfarin 3 mg on 01/30/17 after the INR was slightly above the goal range at 3.01. * Patient's INR goal range: 2-3 * Patient's INR on 01/31/17: 2.98 * Patient's INR has come back down into the goal range. The slight elevation in the INR was likely due to the 6 mg dose on 01/26/17. Plan: * Since the INR is back within the goal range, will give warfarin 3 mg on and will reevaluate with the PT/INR on 02/01/17. * It is expected that the INR will drop slightly tomorrow as well, but should remain within the goal range. * Will continue to follow. Cl Busch Jan 31, 2017 10:07
--- NOTE | 2017-01-31 10:08 | PCM.DIMED ---
Ernesto Lainez DO 01/31/17 1006: Discharge Instructions Date of Service Jan 31, 2017 Dates of Hospitalization Jan 09, 2017 at 21:27 Discharge Diagnosis Discharge Diagnosis 1. Pacemaker insertion site hematoma ,not present on admission, improving. 2. Acute on chronic systolic congestive heart failure exacerbation. Present on admission. Active. 3. Bilateral large pleural effusions due to CHF, acute. Present on admission. 4. Left lower extremity DVT, acute. Present on admission. Active. 5. Possible pulmonary embolism. Present on admission. Active 6. Acute kidney injury on chronic kidney disease. Present on admission. Worsening. 7. 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 Unknown acuity. Present on admission. Improved. 8. 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 Present on admission. Improving. 9. Hypertension, chronic, stable. 10. Bilateral lower leg and right upper extremity edema and erythema, acute. Present on admission. resolved. 11. Coronary artery disease, chronic. 12. Acute stress reaction. Present on admission. Improved 13. Gastroesophageal reflux disease, chronic. 14. Diabetes mellitus type II, diet controlled, chronic. Diet Heart Healthy, Diabetic, Renal Diet Activity Home Health Phyical Therapy Call your provider Fever or Chills, Shortness of breath, Bleeding, Chest pain, Vomitting, Excessive diarrhea, Weakness (unilateral) Patient Instructions - It is important that you have blood draw on Monday 02/05. You will need to have [facility]/INR, CBC, and CMP. - Take all the medications as directed. - Home Health PT. - Oximetry test overnight by Erica. - Use the Oxygen during the day as needed, but you need to use Oxygen during sleep. - If you develop shortness of breath, lethargy, change in mental status, headache, worsening hematoma, nausea, vomiting, please go to the ER. Follow-up plan - Follow up with the [facility] for a hospital-follow up appointment in 1 week.You can establish care with Dr. Valencia Jamison in a couple weeks. - Follow up with [facility] to manage your anticoagulation. - Follow up with Dr. Brennan (nephrology) next Tuesday 02/06. - Follow up with Dr. Matt in 2-3 weeks. Follow-up Provider: [facility] Follow-up with PCP in: 1 week Provider: Marisel Newman MD Follow-up in: 1 week Milad Tucker MD 02/01/17 1627: Discharge Instructions Attending's Statement The patient was seen and examined together with Dr. Lainez on 02/01/2017 and I agree with the history, exam and plan as outlined in the note above. . Ernesto Lainez DO Jan 31, 2017 10:06 Milad Tucker MD Feb 01, 2017 16:27
--- NOTE | 2017-01-31 11:54 | PCM.PNNEPH ---
Subjective Date of Service Jan 31, 2017 Subjective Serum BUN/cr continues to rise. Clinically, he is stable. He has no worsening LE swelling or SOB. He stated that he feels better when using BiPAP. Exam Vital Signs Vital Sign - Last Date Time Temp Pulse Resp B/P Pulse Ox O2 Delivery O2 Flow Rate FiO2 01/31/17 11:21 78 01/31/17 08:47 36.6 20 116/68 93 Nasal Cannula 1.50 01/30/17 04:41 30 Intake and Output 01/30/17 01/30/17 01/31/17 Cumulative From/Thru 15:00 23:00 07:00 01/09/17 17:14 - 01/31/17 06:16 Intake Total 1000 ml 400 ml 56236 ml Output Total 94104 ml Balance 1000 ml 400 ml 01453 ml Intake Oral 1000 ml 400 ml 40348 ml IV Total 02138 ml Output Urine Total 81898 ml Estimated Blood Loss 1 ml # Voids 5 2 56 # Bowel Movements 2 2 28 Exam General: Lying in bed, comfortably, arousable Head: Normal Eyes: PERRLA, EOMI, Scleral Anicteric Nose: Mucous Membr Moist/[place] Mouth: Mucous Membr Moist/[place] Chest & Lungs: Decreased breath sound bilaterally right more the left left pacemaker, hematoma/ecchymosis on left upper chest noted. Cardiovascular: Regular Rate/Rhythm Pulses: Normal carotid, radial, femoral, DP, PT Abdomen: Non-tender, Non-distended, Normoactive bowel tones, Soft Extremities: Trace edema. Lab and Diagnostics Result Diagram: 01/31/175 01/31/17 041 X-Rays, CTs and MRIs PROCEDURE: US VEINOUS LEG DUPLEX UNILATERAL, LEFT IMPRESSION: Occlusive thrombus within the left superficial femoral vein, popliteal vein, and posterior tibial vein. These findings were discussed with Dr. Lopez at 7:45 PM by the plastics technician. Approved by: Rosaura Angel M.D. on 01/09/2017 at 20:08 PROCEDURE: X-RAY CHEST ONE VIEW, PORTABLE IMPRESSION: 1. Low lung volumes and basilar opacities which may represent atelectasis, although aspiration/infection could also be considered in the differential. 2. Interstitial opacities and cardiomegaly suspicious for fluid overload. Approved by: Rosaura Angel M.D. on 01/09/2017 at 18:50 PROCEDURE: US RENAL SONOGRAM IMPRESSION: 1. Mild cortical thinning and increased renal cortical echogenicity bilaterally , compatible with medical renal disease. 2. No hydronephrosis. Approved by: Carissa Boyd M.D. on 01/10/2017 at 12:45 PROCEDURE: X-RAY CHEST ONE VIEW, PORTABLE IMPRESSION: Dual-chamber cardiac pacemaking device leads in normal position, generalized moderate pulmonary edema, small subpulmonic right pleural effusion is again seen. Approved by: Ermias Major M.D. on 01/17/2017 at 17:26 PROCEDURE: X-RAY CHEST ONE VIEW, PORTABLE IMPRESSION: 1. Interval increase in mid/basilar patchy airspace opacities consistent with worsening atelectasis, aspiration and/or pneumonia. Recommend clinical correlation. 2. Small pleural effusions redemonstrated. Approved by: Tracy Carr MD, PhD on 01/22/2017 at 11:47 PROCEDURE: X-RAY CHEST ONE VIEW, PORTABLE IMPRESSION: Mild edema and/or pneumonia involving the lung bases with no significant change. Approved by: Tracy Carr MD, PhD on 01/25/2017 at 17:06 PROCEDURE: X-RAY CHEST ONE VIEW, PORTABLE IMPRESSION: No significant change in mild edema and/or diffuse bilateral pneumonia. Approved by: Tracy Carr MD, PhD on 01/29/2017 at 16:37 Cardiac Echo Impressions Echocardiogram Report Interpretation Summary The left ventricle is mildly dilated. The ejection fraction is estimated to be 35-40%. There is severe hypokinesis of the mid and distal septum, and akinesis of the septum and posterior wall. The anterior wall is hypokinetic and in apical inferior wall is akinetic. 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 There is severe pulmonary hypertension. The right ventricular systolic pressure is estimated at 89 mmHg assuming a right atrial pressure of 15 mm Hg. The right ventricle is mildly dilated. The right ventricular systolic function is normal. There is moderate to severe mitral regurgitation. There is moderate biatrial enlargement. The patient was in third degree heart block during the exam. The heart rate ranged between 50-70 bpm during the study. No other echocardiographic abnormalities seen. Reading Physician:04: 50 PM Plan Impression 1. SHMUEL on CKD secondary to ATN and CRS. BUN/cr rising with high BUN/cr ratio, r/o overdiuresis. repeat UA showed no active urinary sediments. 2. Acute on chronic systolic CHF/right sided HF/pulm HTN. 3. left LE DVT. 4. 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 - complicated by hematoma. 5. Pleural effusion status post paracentesis 6. HTN with hypertensive nephrosclerosis. 7. DM with diabetic nephropathy. Plan: Continue supportive treatment. Decrease torsemide to once a day. Marisel Newman MD Jan 31, 2017 11:54
--- NOTE | 2017-01-31 15:34 | NUR ---
Social Work Note: Readiness for Discharge Data& Assessment: Per MD pt is getting closer to being medically ready for discharge. SW met with pt and pt at bedside to confirm discharge plan and assess for any unmet needs. Pt walker and cane have been delivered to pt room by [employer] this morning. Pt has chosen [facility] for RN, PT, and SW to follow, referral sent and accepted by Sonny with [facility], F2F obtained. Family friend transporting pt home when medically ready. Pt declines any help obtaining a caregiver and states she is able to care for pt on her own. Pt has made progress with PT over the last couple of days. Pt and pt are confident he will be successful at home with home health PT. Per pt , pt daughter will be flying in from [place] this Sunday to stay with pt and pt for 2 weeks. [facility] is following pt for possible Trilogy Machine, SW to follow up with [facility] regarding final respiratory plan. Pt and pt deny any other needs at this time. SW to continue to follow if any needs arise. Plan: Anticipated discharge home via POV with [facility] PT, RN, SW to follow. SW to follow up with [facility] regarding final respiratory plan. Pt and pt deny any other needs at this time. SW to continue to follow if any needs arise. ELEAZAR Hernandez Addendum: 01/31/17 at 1610 by SIA STAFFORD SS Per Jayjay from [facility], pt will not qualify for Bipap or Trilogy. SW to continue to follow. ELEAZAR Hernandez
--- NOTE | 2017-01-31 15:38 | NUR ---
OC signed ELEAZAR Hernandez
--- NOTE | 2017-01-31 19:08 | NUR ---
Ambulation Pt ambulated in halls with staff for ~1/2 lap around unit X2 today, Pt tolerated well, Pt denied dizziness.
--- NOTE | 2017-01-31 19:11 | PCM.PNMED ---
Subjective Date of Service Jan 31, 2017 Subjective Overnight: patient was on BiPAP from 2200 until 0000 and switched to Pt on 1.5L NC the rest of the night. ABG obtained this AM showed pH of 7.5 and PCO2 of 45. He is therefore not qualified for trilogy. Hematoma unchanged per nursing. Today: patient reports to do great. His requests that they stay in the hospital for one more day given his worsening renal function and they need to arrange things at home. He got all his durable medical equipments today. No other complaint. Exam Vital Signs Vital Sign - Last Date Time Temp Pulse Resp B/P Pulse Ox O2 Delivery O2 Flow Rate FiO2 01/31/17 15:52 36.7 86 16 155/61 93 Room Air 01/31/17 11:58 1.50 01/30/17 04:41 30 Intake and Output 01/30/17 01/30/17 01/31/17 Cumulative From/Thru 15:00 23:00 07:00 01/09/17 17:14 - 01/31/17 06:16 Intake Total 1000 ml 400 ml 51313 ml Output Total 87583 ml Balance 1000 ml 400 ml 45778 ml Intake Oral 1000 ml 400 ml 64651 ml IV Total 82218 ml Output Urine Total 76738 ml Estimated Blood Loss 1 ml # Voids 5 2 56 # Bowel Movements 2 2 28 Exam General: Alert, Cooperative, No Acute Distress Head: Normocephalic, atraumatic. External ears normal. Eyes: EOMI. Anicteric sclerae. Mouth: Mouth Normal, Mucous Membranes Moist/[place] Neck: Neck supple with full range of motion. Chest & Lungs: Mild crackles at bilaterally bases. Cardiovascular: Regular Rate/Rhythm, Normal S1, Normal S2, No Murmurs/Rubs/ Gallops Abdomen: Non-tender, Non-distended, No masses, Normoactive bowel tones, Soft Musculoskeletal: Normal Range of Motion Extremities: +1 pitting edema on Left LE, trace edema on the right LE. Pacemaker site on left chest with palpable, soft hematoma softball sized that is not actively bleeding with pressure dressing in place. Ecchymosis extending from incision site to left flank. Neurological: Grossly Neurologically Intact, Normal Speech. IVs and Medications Medications Reviewed: Medications were reviewed in detail Lab and Diagnostics Result Diagram: 01/31/175 01/31/17414 X-Rays, CTs and MRIs PROCEDURE: US VEINOUS LEG DUPLEX UNILATERAL, LEFT IMPRESSION: Occlusive thrombus within the left superficial femoral vein, popliteal vein, and posterior tibial vein. These findings were discussed with Dr. Lopez at 7:45 PM by the installation technician. Approved by: Rosaura Angel M.D. on 01/09/2017 at 20:08 PROCEDURE: X-RAY CHEST ONE VIEW, PORTABLE IMPRESSION: 1. Low lung volumes and basilar opacities which may represent atelectasis, although aspiration/infection could also be considered in the differential. 2. Interstitial opacities and cardiomegaly suspicious for fluid overload. Approved by: Rosaura Angel M.D. on 01/09/2017 at 18:50 PROCEDURE: US RENAL SONOGRAM IMPRESSION: 1. Mild cortical thinning and increased renal cortical echogenicity bilaterally , compatible with medical renal disease. 2. No hydronephrosis. Approved by: Carissa Boyd M.D. on 01/10/2017 at 12:45 PROCEDURE: X-RAY CHEST ONE VIEW, PORTABLE IMPRESSION: Dual-chamber cardiac pacemaking device leads in normal position, generalized moderate pulmonary edema, small subpulmonic right pleural effusion is again seen. Approved by: Ermias Major M.D. on 01/17/2017 at 17:26 PROCEDURE: X-RAY CHEST ONE VIEW, PORTABLE IMPRESSION: 1. Interval increase in mid/basilar patchy airspace opacities consistent with worsening atelectasis, aspiration and/or pneumonia. Recommend clinical correlation. 2. Small pleural effusions redemonstrated. Approved by: Tracy Carr MD, PhD on 01/22/2017 at 11:47 PROCEDURE: X-RAY CHEST ONE VIEW, PORTABLE IMPRESSION: Mild edema and/or pneumonia involving the lung bases with no significant change. Approved by: Tracy Carr MD, PhD on 01/25/2017 at 17:06 PROCEDURE: X-RAY CHEST ONE VIEW, PORTABLE IMPRESSION: No significant change in mild edema and/or diffuse bilateral pneumonia. Approved by: Tracy Carr MD, PhD on 01/29/2017 at 16:37 Cardiac Echo Impressions Echocardiogram Report Interpretation Summary The left ventricle is mildly dilated. The ejection fraction is estimated to be 35-40%. There is severe hypokinesis of the mid and distal septum, and akinesis of the septum and posterior wall. The anterior wall is hypokinetic and in apical inferior wall is akinetic. 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 There is severe pulmonary hypertension. The right ventricular systolic pressure is estimated at 89 mmHg assuming a right atrial pressure of 15 mm Hg. The right ventricle is mildly dilated. The right ventricular systolic function is normal. There is moderate to severe mitral regurgitation. There is moderate biatrial enlargement. The patient was in third degree heart block during the exam. The heart rate ranged between 50-70 bpm during the study. No other echocardiographic abnormalities seen. Reading Physician:04: 50 PM Assessment & Plan Mr. Walsh is an 81-year-old male with type 2 diabetes mellitus, hypertension and CAD with history of [place] presenting as a transfer from [facility] for shortness of breath. Admitted for left leg DVT and presumed PE, CHF exacerbation , bilateral pleural effusions, SHMUEL, and second degree block. 1. Pacemaker insertion site hematoma ,not present on admission, stable. -Sandbag placed for pressure along with a pressure dressing on pacemaker site hematoma. -Warfarin was chosen so that a reversal is available per cardiology. -Dr. Leiva will monitor the hematoma as outpatient and perform an incision to drain the hematoma if necessary -Infection prophylaxis of doxycycline 100 mg once daily started at request of cardiology. He received Doxycycline for 8 days and will d/c today. 2. Acute on chronic systolic congestive heart failure exacerbation. Present on admission. Active -CXR continues to show moderate pulmonary edema. Clinically, patient initially with lower extremity edema, mild JVD, and dyspnea. Pleural effusions bilaterally. -Echocardiogram showed EF of 35-40% and severe pulmonary hypertension. -[place] 8784 [place] [address]. -Monitor I/O and daily weights -Incentive spirometer -Continue Carvedilol 6.25 mg BID -Torsemide decreased from 40 mg BID to 20 mg daily per nephrology -Continue Isosorbide mononitrate 30 mg BID 3. Bilateral large pleural effusions due to CHF, acute. Present on admission. -Right diagnostic/therapeutic thoracentesis 01/24/17 3.2 L transudate drained that shows no bacterial growth to date and no malignant cells. -Pulmonology consulted and following. Their time and recommendations are appreciated. -Albumin 25 g given 01/25/2017 -CXR rechecked 01/29, which showed no significant change in mild edema and/or diffuse bilateral pneumonia. -Patient is not qualified for trilogy or BiPAP. RT will get home oxygen set up for him on discharge. 4. Left lower extremity DVT, acute. Present on admission. Active. -Doppler US showed an occlusive thrombus within the left superficial femoral vein, popliteal vein, and posterior tibial vein. -Hemoglobin and hematocrit stable -Monitor CBC -Warfarin, pharmacy to dose and their input is appreciated -Will consider IVC filter if anticoagulation needs to be stopped for longer time due to hematoma or other reasons -Fecal occult positive but need anticoagulation for DVT and possible PE. Continue to monitor H&H. 5. Possible pulmonary embolism. Present on admission. Active -Doppler of lower extremities shows left lower extremity DVT -Warfarin dose per pharmacy started as above. -Therapeutic INR 2.98 today -V/Q scan was refused by patient and 6. Acute kidney injury on chronic kidney disease. Present on admission. Worsening. -Chronic component as patient has longstanding hypertension and CHF and see above. Renal ultrasound shows mild cortical thinning and increased renal cortical echogenicity bilaterally -BUN 99, Cr 2.75 today -Avoid nephrotoxins,Hold home allopurinol for now. -Appreciate nephrology's recommendations -Chlorthalidone 25 mg PO daily -Torsemide 20 mg PO daily -Dr. Brennan requested the patient to have an appointment with her next Sunday. 7. 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 Unknown acuity. Present on admission. Improved. -Pacemaker placement 01/17/17 -Hemoglobin and hematocrit stable -Resume physical therapy 8. 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 Present on admission. Improving. -Renal tubular acidosis, type 4. Likely secondary to chronic kidney disease. Notes from his primary care physician reported CKD stage 3. Prior BUN 34, creatinine 1.41 on 03/22/2016. In 2012, BUN 33, creatinine 1.52. -Lactic acid within normal limits, no ketones but protein in the urine 9. Hypertension, chronic. Present on admission -Held patient's home ANDREW inhibitor due to acute kidney injury. -Chlorthalidone and torsemide as above -Cardiology recommended hydralazine 50 mg every 8 hours for additional blood pressure control. -Continue hydralazine to BID, consider decreasing to once per day or discontinuing based on stable blood pressure. 10. Bilateral lower leg and right upper extremity edema and erythema, acute. Present on admission. resolved. -Possible cellulitis. It may be stasis dermatitis from chronic venous congestion. Streptozyme and MRSA screen negative. US of right upper extremity was negative for DVT. -Completed Ceftriaxone -Lotion to be applied as needed for dry skin 11. Coronary artery disease, chronic. Present on admission. -Troponin elevated but given SHMUEL and elevated BNP, it is likely from demand ischemia. Echocardiogram shows severe pulmonary hypertension. -Discontinued clopidogrel to help prevent worsening bruising -Stopped aspirin as pt reports not taking this at home 12. Acute stress reaction. Present on admission. Improved -Patient denied current suicidal ideation -Psychiatry consulted and their time and recommendations were appreciated. -Patient is cleared to be discharged home once medically stable. 13. Gastroesophageal reflux disease, chronic. Present on admission. -Continued home famotidine 14. Diabetes mellitus type II, diet controlled, chronic. Present on admission. -HgbA1c 7.1% Disposition: Discharge home with home health services including physical therapy and nursing . Continue to monitor hematoma on warfarin, then patient will likely be appropriate for discharge home tomorrow. Pain Evaluation: Adequate Pain Control VTE Prophylaxis: Theraputic Anticoag with Warfarin VTE Mechanical Devices: Intermittant Pneumatic CD Resuscitation Status: Limited Interventions (DNI) Limited Interventions: Compressions, Cardioversion/Defibrillation, BiPAP, Medications and IV Fluid Attending Statement The patient was seen and examined together with Dr. Lainez on 01/31/2017 and I agree with the history, exam and plan as outlined in the note above. . Ernesto Lainez DO Jan 31, 2017 19:11 Milad Tucker MD Feb 01, 2017 16:26
[2017-02-01] VITALS (7 sets, daily range): BP systolic 122–127; BP diastolic 69–81; PULSE 71–78; RESP 14–25; O2SAT 91–98
--- NOTE | 2017-02-01 01:29 | NUR ---
Resp/Ambulation Patient cooperative with care this shift, no distress noted, patients significant other at bedside, patient denies pain, took patient for walk, patient walked almost 1/10th mile on RA, denied SOB but sats dropped to 87/88% during walk, tolerated exercise fairly well. Pacemaker site intact, no dressing in place, will continue to monitor. Addendum: 02/01/17 at 0135 by LIZET NEAL RN Amended: Links added.
[2017-02-01 03:44] LABS: Mean Corpuscular Hemoglobin 28.8 pg (27.0-35.0); Mean Corpuscular Volume 92.9 fL (81-100)
[2017-02-01 04:05] LABS: INR 3.17 ratio
--- NOTE | 2017-02-01 06:30 | NUR ---
DESATURATION PT on room air while sleeping desate to 87% and needed to be placed on bipap.
[2017-02-01] MEDS: Insulin LISPRO 300 Unit/3 mL Inj SUBQ SCH (09:07)
[2017-02-01] MEDS: Isosorbide Mononitrate 30 mg ER24 Tablet PO SCH (09:08)
[2017-02-01] MEDS ORDERED: HYG25 PO (10:01)
[2017-02-01] MEDS ORDERED: ATOR40TA69 PO (10:01)
[2017-02-01] MEDS ORDERED: ISOS30TA4 PO (10:01)
[2017-02-01] MEDS ORDERED: CARV6.252 PO (10:01)
[2017-02-01] MEDS ORDERED: WARF1TAB6 PO (10:01)
[2017-02-01] MEDS ORDERED: TORS20TA PO (10:01)
[2017-02-01] MEDS ORDERED: HYDR-3940 PO (10:01)
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
--- NOTE | 2017-02-01 11:32 | PCM.PNNEPH ---
Subjective Date of Service Feb 01, 2017 Subjective Serum BUN/cr continues to rise again today. Clinically, he is stable. He has no worsening LE swelling or SOB. He stated that he feels better when using BiPAP. O2 sat without O2 supplement while ambulating was 87%. Exam Vital Signs Vital Sign - Last Date Time Temp Pulse Resp B/P Pulse Ox O2 Delivery O2 Flow Rate FiO2 02/01/17 08:59 36.6 75 16 124/69 92 Nasal Cannula 1.50 02/01/17 05:54 30 Intake and Output 01/31/17 01/31/17 02/01/17 Cumulative From/Thru 15:00 23:00 07:00 01/09/17 17:14 - 02/01/17 06:24 Intake Total 880 ml 200 ml 43592 ml Output Total 57631 ml Balance 880 ml 200 ml 67567 ml Intake Oral 880 ml 200 ml 10643 ml IV Total 91273 ml Output Urine Total 95388 ml Estimated Blood Loss 1 ml # Voids 3 3 62 # Bowel Movements 1 29 Exam General: Lying in bed, comfortably, arousable Head: Normal Eyes: PERRLA, EOMI, Scleral Anicteric Nose: Mucous Membr Moist/[place] Mouth: Mucous Membr Moist/[place] Chest & Lungs: Decreased breath sound bilaterally right more the left left pacemaker, hematoma/ecchymosis on left upper chest noted. Cardiovascular: Regular Rate/Rhythm Pulses: Normal carotid, radial, femoral, DP, PT Abdomen: Non-tender, Non-distended, Normoactive bowel tones, Soft Extremities: Trace edema. Lab and Diagnostics Result Diagram: 02/01/1731402/01/17314 X-Rays, CTs and MRIs PROCEDURE: US VEINOUS LEG DUPLEX UNILATERAL, LEFT IMPRESSION: Occlusive thrombus within the left superficial femoral vein, popliteal vein, and posterior tibial vein. These findings were discussed with Dr. Lopez at 7:45 PM by the technical specialist cytogenetics. Approved by: Rosaura Angel M.D. on 01/09/2017 at 20:08 PROCEDURE: X-RAY CHEST ONE VIEW, PORTABLE IMPRESSION: 1. Low lung volumes and basilar opacities which may represent atelectasis, although aspiration/infection could also be considered in the differential. 2. Interstitial opacities and cardiomegaly suspicious for fluid overload. Approved by: Rosaura Angel M.D. on 01/09/2017 at 18:50 PROCEDURE: US RENAL SONOGRAM IMPRESSION: 1. Mild cortical thinning and increased renal cortical echogenicity bilaterally , compatible with medical renal disease. 2. No hydronephrosis. Approved by: Carissa Boyd M.D. on 01/10/2017 at 12:45 PROCEDURE: X-RAY CHEST ONE VIEW, PORTABLE IMPRESSION: Dual-chamber cardiac pacemaking device leads in normal position, generalized moderate pulmonary edema, small subpulmonic right pleural effusion is again seen. Approved by: Ermias Major M.D. on 01/17/2017 at 17:26 PROCEDURE: X-RAY CHEST ONE VIEW, PORTABLE IMPRESSION: 1. Interval increase in mid/basilar patchy airspace opacities consistent with worsening atelectasis, aspiration and/or pneumonia. Recommend clinical correlation. 2. Small pleural effusions redemonstrated. Approved by: Tracy Carr MD, PhD on 01/22/2017 at 11:47 PROCEDURE: X-RAY CHEST ONE VIEW, PORTABLE IMPRESSION: Mild edema and/or pneumonia involving the lung bases with no significant change. Approved by: Tracy Carr MD, PhD on 01/25/2017 at 17:06 PROCEDURE: X-RAY CHEST ONE VIEW, PORTABLE IMPRESSION: No significant change in mild edema and/or diffuse bilateral pneumonia. Approved by: Tracy Carr MD, PhD on 01/29/2017 at 16:37 Cardiac Echo Impressions Echocardiogram Report Interpretation Summary The left ventricle is mildly dilated. The ejection fraction is estimated to be 35-40%. There is severe hypokinesis of the mid and distal septum, and akinesis of the septum and posterior wall. The anterior wall is hypokinetic and in apical inferior wall is akinetic. 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 There is severe pulmonary hypertension. The right ventricular systolic pressure is estimated at 89 mmHg assuming a right atrial pressure of 15 mm Hg. The right ventricle is mildly dilated. The right ventricular systolic function is normal. There is moderate to severe mitral regurgitation. There is moderate biatrial enlargement. The patient was in third degree heart block during the exam. The heart rate ranged between 50-70 bpm during the study. No other echocardiographic abnormalities seen. Reading Physician:04: 50 PM Plan Impression 1. SHMUEL on CKD secondary to ATN and CRS. BUN/cr rising with high BUN/cr ratio, r/o overdiuresis. repeat UA showed no active urinary sediments. 2. Acute on chronic systolic CHF/right sided HF/pulm HTN. 3. left LE DVT. 4. 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 - complicated by hematoma. 5. Pleural effusion status post paracentesis 6. HTN with hypertensive nephrosclerosis. 7. DM with diabetic nephropathy. Plan: Continue supportive treatment. Continue Torsemide to once a day. if d/c home, need to repeat BMP within 2-3 days. f/u with renal in 4-5 days. Marisel Newman MD Feb 01, 2017 11:32
--- NOTE | 2017-02-01 15:48 | NUR ---
Discharge Pt discharged to home today with family at ~1315 after [facility] met with Pt regarding home O2. Pt's home medications gone over in detail with Pt and including next time due, paper prescriptions for all new medications accompanied Pt at time of discharge. Pt and instructed in multiple f/u appointments, some already made, some pending the office contacting Pt, see discharge instructions for more details, phone numbers supplied. Pt's IV access D/C'd and intact X2. Pt given discharge educational materials on all new prescriptions, heart block, DVT, and PEs. Pt given educational booklets on diabetes, CHF, and pacemakers. Pt instructed to continue with post-pacemaker precautions, Pt wearing sling at discharge. Pt and verbalized understanding of all discharge instructions. All belongings accompanied Pt at time of discharge including both Pt's and Pt's 's walkers and Pt's cane.
== END 2017-02-01 13:20 | disposition home health service (06) | DRG 242 ==
LOC: SED 16:59 → PCC 21:27 → CCU 01-17 19:32 → PCC 01-18 09:45
PROVIDERS: ADMIT Specialist; ATTEND Specialist
PROC: 4A033R1 Measurement of Arterial Saturation, Peripheral, Percutaneous Approach (ICD-10-PCS; 2017-01-10)
PROC: 0JH606Z Insertion of Pacemaker, Dual Chamber into Chest Subcutaneous Tissue and Fascia, Open Approach (ICD-10-PCS; principal; 2017-01-17)
PROC: 02HK3JZ Insertion of Pacemaker Lead into Right Ventricle, Percutaneous Approach (ICD-10-PCS; 2017-01-17)
PROC: 02H63JZ Insertion of Pacemaker Lead into Right Atrium, Percutaneous Approach (ICD-10-PCS; 2017-01-17)
PROC: 0W993ZX Drainage of Right Pleural Cavity, Percutaneous Approach, Diagnostic (ICD-10-PCS; 2017-01-24)
DX: I13.0 Hypertensive heart and chronic kidney disease with heart failure and stage 1 through stage 4 chronic kidney disease, or unspecified chronic kidney disease (principal); I50.23 Acute on chronic systolic (congestive) heart failure; I26.99 Other pulmonary embolism without acute cor pulmonale; J18.9 Pneumonia, unspecified organism; N17.0 Acute kidney failure with tubular necrosis; I82.412 Acute embolism and thrombosis of left femoral vein; I82.432 Acute embolism and thrombosis of left popliteal vein; I82.442 Acute embolism and thrombosis of left tibial vein; E87.2 Acidosis; L03.116 Cellulitis of left lower limb; I44.2 Atrioventricular block, complete; L76.32 Postprocedural hematoma of skin and subcutaneous tissue following other procedure; J90 Pleural effusion, not elsewhere classified; I44.1 Atrioventricular block, second degree; N18.3 Chronic kidney disease, stage 3 (moderate); I27.2 Other secondary pulmonary hypertension; I25.10 Atherosclerotic heart disease of native coronary artery without angina pectoris; F43.24 Adjustment disorder with disturbance of conduct; E03.9 Hypothyroidism, unspecified; F43.0 Acute stress reaction; K21.9 Gastro-esophageal reflux disease without esophagitis; E11.21 Type 2 diabetes mellitus with diabetic nephropathy; E87.5 Hyperkalemia; I25.5 Ischemic cardiomyopathy

== ENCOUNTER 2017-02-24 16:11 | Inpatient (IN) | payer MEDICARE, OTHER ==
[~2017-02-24] VITALS: Ht 180.3 cm; Wt 87.7 kg
[~2017-02-24 16:11] MED LIST: ASPI325T32 PO; ATOR40TA69 PO; CARV6.252 PO; CLOP75TA3 PO; HYDR-3940 PO; HYG25 PO; ISOS30TA4 PO; RANI150T11 PO; TORS20TA PO; WARF1TAB6 PO
[2017-02-24 16:17] VITALS: BP 108/69; PULSE 60; RESP 20; O2SAT 95
[2017-02-24] MEDS ORDERED: Ondansetron 2 mg/mL 2 mL Inj IVPUSH PRN ×2 (17:05→18:35)
[2017-02-24] MEDS ORDERED: Alum-Mag Hydrox-Simeth 30 mL Suspension PO PRN ×2 (17:05→18:35)
[2017-02-24 17:09] LABS: BASOPHILS % (AUTO) 0.6 % (0-3)
[2017-02-24 17:23] LABS: EOSINOPHILS % (AUTO) 1.1 % (0-5); MONOCYTES % (AUTO) 9.5 % (4-12); Mean Corpuscular Hemoglobin 28.7 pg (27.0-35.0); Mean Corpuscular Volume 86.8 fL (81-100); NEUTROPHILS % (AUTO) 56.8 % (40-74)
--- NOTE | 2017-02-24 17:34 | ED.REPORT ---
HPI-General Illness Date of Service Feb 24, 2017 ED Provider: Cyril Crooks MD An 82 year old male with a history of type II diabetes, hypertension, DVT, CHF and recent pacemaker placement presents to the ED via EMS with his complaining of generalized weakness that began 5 days ago. reports altered mental status, fatigue, increased fluid intake, insomnia for the past few nights , chest discomfort, slurred speech and worsening dysphagia. Patient had a pacemaker placed 3 weeks ago. reports that his current mental state has changed dramatically from his baseline. He is currently on 2.5 L of home O2 and has been using diuretics recently. She denies any abdominal pain. Patient's denies any recent head injury, GLF, or history of dementia. History is limited due to patient condition. Nursing Notes Stated Complaint: WEAKNESS Chief Complaint: General Complaint Nursing Notes Reviewed: Yes Allergies: Coded Allergies: Penicillins (Verified Allergy, Intermediate, rash, 01/09/17) latex (Verified Allergy, Intermediate, rash, 01/09/17) Uncoded Allergies: narcotics per (Allergy, Severe, per pt's tongue swells and develops a rash, 02/24/17) Scheduled Atorvastatin Calcium (Atorvastatin Calcium) 40 Mg Tablet 40 MG PO HS Carvedilol (Carvedilol) 6.25 Mg Tablet 6.25 MG PO BIDWM Chlorthalidone (Chlorthalidone) 25 Mg Tablet 25 MG PO DAILY Clopidogrel Bisulfate (Plavix) 75 Mg Tablet 75 MG PO DAILY Hydralazine (Hydralazine) 50 Mg Tablet 50 MG PO BID Isosorbide MN ER (Isosorbide MN ER) 30 Mg Tab.er.24h 30 MG PO BID Ranitidine (Zantac) 150 Mg Tablet 150 MG PO BID Torsemide (Demadex) 20 Mg Tablet 20 MG PO DAILY Warfarin Sodium (Warfarin Sodium) 1 Mg Tablet 1.5 MG PO DAILY Miscellaneous Medications Aspirin (Aspirin) 325 Mg Tablet 325 MG PO General Time Seen by MD: 16:44 Chief Complaint Weakness Hx Obtained From: Spouse Arrived By: Ambulance Sudden in Onset?: No Onset Occurred: 3 days ago Symptom Duration: Since onset Associated with: Reports: Chest pain (discomfort ), Speech abnormal, Weakness, Denies: Loss of consciousness (decreased LOC) Additional Notes: Insomnia Pertinent Negative: Pt denies other symptoms Recent Healthcare: Recent doctor visit, Recent hospitalization Past Medical History Past Medical History Type II Diabetes Hypertension CHF DVT Depression Past Surgical History Pacemaker placement Smoking History Unknown if Ever Smoker Social History Other Social History: Good social support, , Local resident Ambulatory Status Independent Review of Systems Unable to Obtain ROS Patient condition (Patient unable to provide ROS), Mental status (Patient unable to provide ROS) Physical Exam Vital Signs Vital Signs Date Time Temp Pulse Resp B/P Pulse Ox O2 Delivery O2 Flow Rate FiO2 02/24/17 17:55 60 15 94/61 96 Nasal Cannula 2 02/24/17 17:16 35.2 02/24/17 16:17 35 60 20 108/69 95 Room Air Initial VS: Reviewed Neck: Supple, Non-tender, Full range of motion Psychiatric: Mood/affect normal, Behavior normal, Normal thought content General/Constitutional: Awake Alertness: Positive: Somnolent GENERAL: Patient is mumbling Able to open eyes and respond to verbal command; only through mumble Respiratory / Chest: Atraumatic, No respiratory distress RESPIRATORY/CHEST: Lungs coarse bilaterally Left anterior well healed scar over chest with soft hematoma (7cm x 9cm) and ecchymosis Cardiovascular: Heart rate NL, Regular rhythm, Heart sounds NL, No gallop, No murmurs, No rubs, Pulses = bilaterally (palpable radial pulse) Lower Ext Edema: Positive: Pitting (Trace) Abdomen: Atraumatic, Soft, Non-tender, No distention Upper Extremities Upper Extremity / MS: Atraumatic, Neurologic intact, Vascular intact Right Forearm: Positive: Ecchymosis present (Scattered over arm ) Left Forearm: Positive: Ecchymosis present (Scattered over arm) Skin: Atraumatic, Color NL, No rash, Warm, Dry SKIN: No evidence of cellulitis or skin infection Rectum / Perineum: Atraumatic Rectal for Blood: Positive: Blood - occult heme +, Blood, grossly present, Melena present (Dark stool present in vault ) Rectum / Perineum Abnl: Negative: Hemorrhoid bleeding, Hemorrhoid external RECTAL: No external bleeding Neurologic: No motor deficits (5/5 strength in both extremlities ), CN II - XII intact (No facial droop ) Mental Status: Positive: Disoriented to place, Disoriented to time, Somnolent NEURO: No obvious neurological deficits Neuro limited due to somulence Interpretation & Diagnostics Lab Results Interpretation Result Diagram: 02/24/1721041/17 1650 Test 02/24/17 16:50 02/24/17 17:14 02/24/17 18:25 White Blood Count 5.3th/mm3 (3.8-10.1) Red Blood Count 3.03mil/mm3 (4.40-5.80) Mean Corpuscular Volume 86.8fL (81-100) Mean Corpuscular Hemoglobin 28.7pg (27.0-35.0) Mean Corpuscular Hemoglobin Concent 33.1% (32.0-37.0) Red Cell Distribution Width 14.8% (12.3-15.4) Platelet Count 89bil/L (150-400) Neutrophils (%) (Auto) 56.8% (40-74) Lymphocytes (%) (Auto) 31.2% (14-46) Monocytes (%) (Auto) 9.5% (4-12) Eosinophils (%) (Auto) 1.1% (0-5) Basophils (%) (Auto) 0.6% (0-3) Sodium Level 125mEq/L (134-144) Potassium Level 4.4mEq/L (3.5-5.2) Chloride Level 85mEq/L (97-108) Carbon Dioxide Level 21mmol/L (18-29) Blood Urea Nitrogen 163mg/dL (8-27) Creatinine 2.21mg/dL (0.76-1.27) Estimat Glomerular Filtration Rate 30mL/min (>59) Glucose Level 174mg/dL (60-99) Lactic Acid Level 1.3mmol/L (0.4-2.0) Calcium Level 9.4mg/dL (8.5-10.1) Magnesium Level 2.4mg/dL (1.6-2.6) Total Bilirubin 0.6mg/dL (0.0-1.2) Aspartate Amino Transf (AST/SGOT) 37U/L (0-50) Alanine Aminotransferase (ALT/SGPT) 29U/L (0-44) Alkaline Phosphatase 52U/L (25-160) Pro-B-Type Natriuretic Peptide 3949pg/mL (0-486) Total Protein 6.2g/dL (6.4-8.4) Albumin 3.2g/dL (3.4-5.0) Urine Color Yellow (YELLOW) Urine Appearance Clear (CLEAR,HAZY) Urine pH 5.0 (5.0-8.0) Urine Specific Bryce 1.010 (1.003-1.035) Urine Protein Negativemg/dL (NEG,TRACE) Urine Glucose (UA) Negativemg/dL (NEGATIVE) Urine Ketones Negativemg/dL (NEGATIVE) Urine Occult Blood Negative (NEGATIVE) Urine Nitrite Negative (NEGATIVE) Urine Bilirubin Negative (NEGATIVE) Urine Urobilinogen Normalmg/dL (NORMAL) Urine Leukocyte Esterase Negative (NEGATIVE) Urine RBC 0-2/hpf (0-2) Urine WBC 0-5/hpf (0-5) Urine Epithelial Cells Occasional/hpf (NONE-MOD) Urine Crystals Amorphous urates (NONE Urine Bacteria None/hpf (NONE-FEW) Urine Hyaline Casts None/lpf (NONE) Urine Granular Casts None seen (NONE SEEN) Urine Waxy Casts None seen (NONE SEEN) Urine Red Blood Cell Casts None seen (NONE SEEN) Urine White Blood Cell Casts None seen (NONE SEEN) Urine Mucus None seen (None Seen) Urine Trichomonas None seen (NONE SEEN) Urine Yeast None (NONE SEEN) Urinalysis Comment None Urine Culture Reflexed Not indicated Prothrombin Time 64.9sec (8.1-12.5) Prothromb Time International Ratio 5.85ratio ECG Interpretation ECG Interpretation: 72 bpm Atrial sensed ventricular placed complexes No specific intraventricular conduction delay present Compared 01/18/17 rate now down 69 bpm Time: 16:43 Interpreted by: ED physician X-Ray Chest Interpretation Chest Xray Interpretation: IMPRESSION: Small bibasilar pleural effusions, with increased bibasilar compressive atelectasis versus evolving bronchopneumonia. Dictated by: Barron Sheridan M.D. on 02/24/2017 at 17:50 Interpretation / Wet Read by: Interpret - Radiologist CT Head Interpretation IMPRESSION: 1. No acute intracranial abnormalities. 2. Nonacute bilateral caudate nuclei lacunar infarcts as before. Dictated by: Barron Sheridan M.D. on 02/24/2017 at 17:46 Study: Head CT no contrast Interpretation / Wet Read by: Interpret - Radiologist Re-Eval/Medical Decision Med Decision/Clinical Course Pt is an 82 year old male with a history of type II diabetes, hypertension, DVT (on coumadin), CHF and recent pacemaker placement who presents to the ED via EMS with his complaining of generalized weakness, confusion that began 5 days ago. reports altered mental status, fatigue, increased fluid intake, insomnia for the past few nights, chest discomfort, 4 days of slurred speech and seeming to have difficulty swallowing. reports that his current mental state has changed dramatically from his baseline. He is currently on 2.5 L of home O2 and has been using diuretics recently due to CHF exacerbation. Patient's denies any recent head injury, GLF, or history of dementia. History is limited due to patient condition. Here in the emergency department the patient is quite confused though is protecting his airway. He is unable to state where he is or what year it is. His participation and examination is limited. There is no evidence of head trauma or lateralizing neurologic deficit though he is not able to fully participate and neurologic assessment. Per he was last normal 4 days ago and given that he is on Coumadin he is not a candidate for TPA should his symptoms be related to acute ischemic stroke. I obtained a CT scan of the patient's head demonstrated no acute intracranial abnormalities, mass lesion or hemorrhage. CXR: Small bibasilar pleural effusions, with increased bibasilar compressive atelectasis versus evolving bronchopneumonia Laboratory studies notable as below: No leukocytosis Hct = 26.3 (down from 35.5) - 3 weeks prior BNP = 3949 BUN = 163 (up from 101) Creatinine = 2.2 (down from 2.83) K+ within normal limits at 4.4 Na+ = 125 Troponin = .104 (down from prior .133) - 2 months prior No signs of UTI Lactic acid 1.3 Given the patient's acute drop in hematocrit I obtained a second large-bore IV and send blood for type and screen. I performed a rectal examination which revealed melanotic stools that were strongly guaiac positive. I administered 10 mg of IV vit K given the patient's supratherapeutic INR in the setting of GI bleed. I obtained additional history from the patient's that he had a history of peptic ulcer disease and therefore I started the pantoprazole infusion. I discussed the patient with GI and they agree with this plan and recommended admission with plan for scoping the patient in the morning. In regards to the patient's profound slurred speech and altered mental status stroke is certainly a consideration though as stated above he is not a TPA candidate. Head CT demonstrates no hemorrhagic process. While he likely requires further workup for acute stroke his other medical issues are at this time more pressing. The patient was noted to have bilateral pleural effusions and in the setting of his underlying congestive heart failure I am hesitant to aggressively give him fluids. I administered a 500 mL bolus here which was tolerated well. He was borderline hypotensive though remained hemodynamically stable. Of note he is quite hyponatremic and in the setting of his recent DVT I certainly find myself wondering if he may have some underlying malignancy resulting in hypercoagulable state as well as his hyponatremia. While his hyponatremia may explain his altered mental status and other etiologies remain a consideration as well. He is afebrile without leukocytosis and thus far extensive workup reveals no acute infectious process. His lactic acid is 1.3 and 2 sets of blood cultures. I am unconvinced of pneumonia on his chest x-ray and after discussing with hospitalist we have opted not to immediately initiate broad- spectrum antibiotics. Pt was admitted to the ICU in consultation with GI for further monitoring and workup. His current state is quite tenuous given active bleeding and need for possible volume resuscitation in the setting of underlying significant congestive heart failure, volume retention and hyponatremia. I spent a very long time discussing with the patient's the need for admission as well as goals of care and at this time he is full code. Time of Eval: 18:04 Patient Status: Condition unchanged Re-Evaluation/Progress Note: Patient is rechecked. is informed of his concerning lab results, CT results, X-ray results and diagnosis. Time of Eval: 18:43 Patient Status: Condition improved Re-Evaluation/Progress Note: All of the patient's 's questions are addressed. She understands and agrees with the treatment plan. Consultation #1: Referral / Consult Name: Stuart Rothman MD Consulted With: Hospitalist Call Returned at: 18:07 Manager Paid: Will see patient, Agrees with eval, Agrees with plan, Accepts admit Consultation #2: Referral / Consult Name: Kareem Soares MD Call Returned at: 18:11 Manager Paid: Will see patient, Agrees with eval, Agrees with plan Note: GI Counseled Regarding: Diagnosis, Lab results, Need for admission Discharge & Departure Primary Impression: GI bleed GI bleed type/associated pathology: unspecified gastrointestinal hemorrhage type Qualified Code: K92.2 - Gastrointestinal hemorrhage, unspecified Additional Impressions: Altered mental state Altered mental status type: unspecified Qualified Code: R41.82 - Altered mental status, unspecified Elevated troponin Acute blood loss anemia Melena Acute renal failure Acute renal failure type: unspecified Qualified Code: N17.9 - Acute kidney failure, unspecified Congestive heart failure Congestive heart failure type: unspecified congestive heart failure type Congestive heart failure chronicity: unspecified congestive heart failure chronicity Qualified Code: I50.9 - Heart failure, unspecified Bilateral pleural effusion Elevated brain natriuretic peptide (BNP) level Disposition: ADMITTED TO HOSPITAL Discharge Condition All VS Reviewed: Yes Condition: Stable Referrals: Valencia Jamison DO (PCP) Crit Care Except Billable Proc Time Spent: 165-194 minutes Services Performed: Patient management by me, Time spent at bedside, Reviewing test results, Reviewing imaging, Discussing patient care, Documentation in record, Time with fam/surrogate Scribe Attestation Portions of this note were transcribed by Estelle Gamble. I, Dr. Crooks personally performed the history, physical exam and medical decision-making; I reviewed and confirmed the accuracy of the information in the transcribed note. Signed by: Radha Appiah, 02/24/17 1850. copies to: Valencia Jamison Beck O MD Feb 24, 2017 17:34 ESTELLE GAMBLE Feb 24, 2017 17:39
[2017-02-24 17:35] LABS: Magnesium 2.4 mg/dL (1.6-2.6)
[2017-02-24 17:44] LABS: Platelet Count 89 bil/L (150-400)
[2017-02-24 17:46] LABS: TROPONIN T 0.104 ug/L (0.0-0.011)
[2017-02-24 17:47] LABS: INR 5.69 ratio
--- NOTE | 2017-02-24 17:51 | DRSVH ---
PROCEDURE: CT BRAIN WITHOUT CONTRAST ([id number]) INDICATIONS: 82-year-old male with altered mental status. TECHNIQUE: Noncontrast 4.5 mm thick angled axial sections acquired from the foramen magnum to the vertex, with c oronal reformats. COMPARISON: [facility], CT, BRAIN W/O CONTRAST, 04/21/2013, 19:25. FINDINGS: Image quality: Excellent. CSF spaces: Basal cisterns are patent. No extra-axial fluid collections. The ventricles are symmet harris in size and shape. Brain: No intracranial bleeds or masses. There are patchy periventricular and deep white matter chr onic small vessel ischemic changes. Nonacute right caudate head lacunar infarct is again noted, as w ell as bilateral nonacute lacunar infarcts in both caudate bodies. Bilateral lentiform nuclei promin ent perivascular spaces versus nonacute lacunar infarcts are present as well. There is intracranial internal carotid and vertebral artery atherosclerosis. Skull and face: Calvarium and visualized facial bones appear intact, without suspicious lesions. Sinuses: Visualized sinuses and mastoids are clear. IMPRESSION: 1. No acute intracranial abnormalities. 2. Nonacute bilateral caudate nuclei lacunar infarcts as before. Dictated by: Barron Sheridan M.D. on 02/24/2017 at 17:46 Approved by: Barron Sheridan M.D. on 02/24/2017 at 17:50
--- NOTE | 2017-02-24 17:54 | DRSVH ---
PROCEDURE: X-RAY CHEST ONE VIEW, PORTABLE ([id number]) INDICATIONS: 82-year-old male with possible sepsis. TECHNIQUE: One view of the chest was acquired. COMPARISON: [facility], CR, XR CHEST 1VW (PORTABLE), 01/29/2017, 14:53. [facility], CR, XR CHEST 1VW (PORTABLE), 01/25/2017, 11:29. [facility], CR, XR CHEST 1VW (POR TABLE), 01/24/2017, 17:03. FINDINGS: Surgical changes and devices: Left chest wall dual chamber pacemaker is again noted. Lungs and pleura: Small bibasilar pleural effusions are now present. Bibasilar airspace opacities h ave increased. No pneumothorax. Mediastinum: Mediastinal contours appear normal. Mild cardiomegaly is unchanged. There is aortic a therosclerosis. Bones and chest wall: No suspicious bony lesions. Overlying soft tissues appear unremarkable. IMPRESSION: Small bibasilar pleural effusions, with increased bibasilar compressive atelectasis versus evolving b ronchopneumonia. Dictated by: Barron Sheridan M.D. on 02/24/2017 at 17:50 Approved by: Barron Sheridan M.D. on 02/24/2017 at 17:52
[2017-02-24 17:55] VITALS: BP 94/61; PULSE 60; RESP 15; O2SAT 96
[2017-02-24 18:04] LABS: APPEARANCE,URINE CLEAR (CLEAR,HAZY); COLOR,URINE YELLOW (YELLOW); OCCULT BLOOD,URINE NEGATIVE (NEGATIVE); UROBILINOGEN,URINE NORMAL (NORMAL)
[2017-02-24] MEDS ORDERED: Pantoprazole Inj 80 MG, Pharmacy To Mix 1 EA in 0.9% Sodium Chloride 80 ML IV ONE ×2 (18:05)
[2017-02-24] MEDS ORDERED: Pantoprazole 4 mg/mL 10 mL Inj IVPUSH ONE (18:05)
[2017-02-24] MEDS ORDERED: Phytonadione (Adult) 10 MG in Dextrose 5%-Pha MIX 50 ML IV ONE (18:10)
[2017-02-24] MEDS ORDERED: Polyethylene Glycol (PEG) 17 Gm Powder PO PRN (18:35)
[2017-02-24 18:45] VITALS: BP 101/51; PULSE 60; RESP 12; O2SAT 97
[2017-02-24 19:27] VITALS: BP 101/51; PULSE 60; RESP 12; O2SAT 97
[2017-02-24 19:30] LABS: INR 5.85 ratio
[2017-02-24 20:15] VITALS: BP 109/65; PULSE 63; RESP 19; O2SAT 96
--- NOTE | 2017-02-24 20:19 | PCM.HPMED ---
Subjective Date of Service Feb 24, 2017 Primary Provider: Admitting Physician: Zaria Lara DO Primary Care Physician: Valencia Jamison DO Attending Physician: Zaria Lara DO Allergies Coded Allergies: Penicillins (Verified Allergy, Intermediate, rash, 01/09/17) latex (Verified Allergy, Intermediate, rash, 01/09/17) Uncoded Allergies: narcotics per (Allergy, Severe, per pt's tongue swells and develops a rash, 02/24/17) PMH Social History Hx Alcohol Use: No Hx Substance Use: No Smoking Status: Unknown if Ever Smoker Exam Vital Signs Vital Sign - Last Date Time Temp Pulse Resp B/P Pulse Ox O2 Delivery O2 Flow Rate FiO2 02/24/17 18:45 60 12 101/51 97 Nasal Cannula 2 02/24/17 17:16 35.2 Lab and Diagnostics Result Diagram: 02/24/17 1650 02/24/17 1650 Assessment & Plan HPI: Patient is an 82-year-old male who presents to the hospital with the complaint of lethargy and slurred speech, blood in the stool, increased bruising, and chest pain. The patient's who is with him stated that the patient over the last 4-5 days has had increasing weakness and decreased appetite and thirst. They have home health services and the nurse told the patient 3 days ago to start increasing the amount of water that he drinks. The patient's stated that he drank 3 bottles of Pedialyte, two 16 ounce bottles of water, 2 cups of coffee and has only urinated once today. The patient normally is able to walk around independently and as he started to have increasing weakness and slurred speech and has been unable to get up and walk the patient's decided that he needed to come to the emergency room. The patient's states that at baseline the patient is able to walk on his own and does not have slurred speech nor does he have any signs of dementia. The patient's states that the patient did have blood in the stool today. She states that this is most likely secondary to the fact that the patient has been drinking multiple cups of coffee as this has triggered bleeding from his stomach ulcers in the past. Patient has been recently hospitalized secondary to influenza and bradycardia. The patient recently had a pacemaker placed on 01/17/2017 and currently has a hematoma in the area of the pacemaker. This has been followed and worked up and the patient's states that the hematoma has decreased in size. The patient has been taking warfarin for anticoagulation secondary to a DVT which was diagnosed on 01/09/2017. The patient recently was placed on antibiotics once the hematoma was discovered for prophylaxis against infection. The patient 's states that she has been following up with the INR clinic and has been changing the Coumadin dosages as prescribed by the doctor. Pacemaker: Model # [id number] Serial # [id number] RA lead LPA 1200M/52 RV lead LPA 1200M/58 Echo report from 01/10/2017 Interpretation Summary The left ventricle is mildly dilated. The ejection fraction is estimated to be 35-40%. There is severe hypokinesis of the mid and distal septum, and akinesis of the septum and posterior wall. The anterior wall is hypokinetic and in apical inferior wall is akinetic. 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 There is severe pulmonary hypertension. The right ventricular systolic pressure is estimated at 89 mmHg assuming a right atrial pressure of 15 mm Hg. The right ventricle is mildly dilated. The right ventricular systolic function is normal. There is moderate to severe mitral regurgitation. There is moderate biatrial enlargement. The patient was in third degree heart block during the exam. The heart rate ranged between 50-70 bpm during the study. No other echocardiographic abnormalities seen. Historiography Teacher: Dr. Leiva Stone Gluer: Dr. Bell Home medications: Atorvastatin 40 mg daily at bedtime Carvedilol 6.25 mg twice a day Chlorthalidone 25 mg daily Hydralazine 50 mg twice a day Isosorbide 30 mg twice a day Torsemide 20 mg daily Warfarin 1.5 mg daily Clopidogrel 75 mg daily Zantac 150 mg take twice a day Allergies: Drug: Penicillin, latex, and narcotic drug medication: Reaction rash PMHx: Diabetes type II GERD CAD Left lower extremity DVT (01/09/17) Second-degree AV block with pacemaker placement dual pacemaker placement on CKD CHF Hypertension WI SHx: Pacemaker placement on 01/17/2017 FHx: Mother had breast cancer SocHx: Tobacco history: Patient denies Alcohol use: Patient denies Drug use: Patient denies ROS: A complete review of systems was performed or attempted to be performed. Please see HPI for perninent positives, all other systems are negatives. Physical Exam: GEN: Patient was awake, very lethargic, unable to answer questions verbally, but able to respond to yes and no questions by squeezing my hand HEENT: PERRLA, Neck soft supple, trachea midline, nomocephalic/atraumatic CV: +S1/S2, RRR, + murmurs auscultated Respiratory: Coarse breath sounds, no wheezes or rales GI: +bowel sounds x4, soft, compressible, non TTP EXT: +1 pitting edema in the lower extremities bilaterally, mottled skin with multiple abrasions Musculoskeletal: +5 out of 5 behavioral school counselors strength, 5 out of 5 dorsiflexion and plantar flexion, S1 intact Neuro: unable to illicit any facial expressions from the patient, +slurred speech Psych: mood and affect were appropriate difficult to assess secondary to the patient's difficulty with speech Assessment and Plan 82-year-old male past medical history of hypertension, [place], CAD, GERD, diabetes type II presents with GI bleed, lethargy, and slurred speech Acute blood loss anemia and GI bleed most likely secondary to supratherapeutic INR, present on admission -H&H is currently 8.0/25.0 -Continue to trend H&H -Transfuse if hemoglobin less than 7 -Protonix 40 IV twice a day -Nothing by mouth -GI consulted -INR is 5.85 -2 doses of Protonix 80 mg given in the ED -1 dose of 10 mg IV vitamin K -Continue to trend H&H -Repeat PT/INR in the morning TIA, present on admission -CT scan negative -MRI of the brain -Ultrasound of the carotids CKD, present on admission -Insert Espino -Strict I's and O's -Creatinine currently 2.21 this is around the patient's baseline -Consult nephrology Hematoma around pacemaker, chronic -Continue to monitor -Add compression dressing if area starts to increase CHF exacerbation -BNP 3949 -EF 35-40% from echo done on 01/10/2017 with severe pulmonary hypertension -Consult cardiology Hypotension -Blood pressure is currently 101/51 this is after a 500 mL bolus of fluid -Hold all diuresis -Hold all blood pressure medications -Should patient's blood pressure decrease will rehydrate with gentle hydration as the patient does have known CHF Elevated troponins -May be secondary to stress-induced -Trend troponins Recent history of left lower extremity DVT (01/09/17), currently stable -Hold all anticoagulation as patient is currently supratherapeutic and currently bleeding DVT prophylaxis: -hold all medical anticoagulation at this time as patient is supratherapeutic and has a GI bleed Diet: NPO Disposition: Due to the complexity of the patient's current condition he will most likely cross 2 midnights. There are multiple medical issues that are currently present in this patient. There is concern for possible CVA as the patient has new onset slurring of speech. According to the patient's family up until 3-4 days ago the patient was dressing himself, ambulating, had no difficulty with speech or mentation. There is also concern that this could also be CHF exacerbation with an underlying cardiac insult. The patient is also having a GI bleed and has acute blood loss anemia for which the patient may need to have an EGD or colonoscopy. We will continue to follow up with the patient in the morning. Code Status: DNI, but yes to resuscitation including CPR, IV fluids, and medications GI Prophylaxis: Proton Pump Inhibitor VTE Prophylaxis Indicated: Contraindicated VTE Mechanical Devices: Intermittant Pneumatic CD Resuscitation Status: Limited Interventions Limited Interventions: Compressions, Cardioversion/Defibrillation, BiPAP, Medications and IV Fluid Time spent One hour Zaria Lara DO Feb 24, 2017 18:53
[2017-02-24] MEDS: Pantoprazole 4 mg/mL 10 mL Inj IVPUSH SCH (20:30)
[2017-02-24 20:37] VITALS: BP 107/63; PULSE 63; RESP 12; O2SAT 97
[2017-02-25] VITALS (9 sets, daily range): BP systolic 102–112; BP diastolic 60–74; PULSE 57–65; RESP 16–22; O2SAT 93–98
--- NOTE | 2017-02-25 04:53 | NUR ---
Admit Arrive 1999 from ER accompanied by spouse. Sleepy, oriented. Delayed mumbled speech. Yes to dyspnea. No to pain, N/V. Tele paced. BP stable low. Espino in place. Protonix drip at 10ml/hr. No s/sx of bleeding. H&H every 4 hrs. Admit completed w/ pt's .
--- NOTE | 2017-02-25 04:55 | NUR ---
P: neuro I: neuro checks E: Drowsy, oriented. Follows cues. DENT equally. Speech continues w/ delay and mumbles. Denies pain, dyspnea, N/V. Tele paced. Low stable BP. Jagruti UOP. 2L NC, sats in the high 90s. stays around the clock w/ pt. Protonix drip and current Hgb draws > 7. No s/sx of bleeding. No BMs.
[2017-02-25 05:11] LABS: BASOPHILS % (AUTO) 0.5 % (0-3); EOSINOPHILS % (AUTO) 0.9 % (0-5); MONOCYTES % (AUTO) 9.9 % (4-12); Mean Corpuscular Hemoglobin 28.5 pg (27.0-35.0); Mean Corpuscular Volume 86.6 fL (81-100); NEUTROPHILS % (AUTO) 61.8 % (40-74); Platelet Count 76 bil/L (150-400)
[2017-02-25 05:25] LABS: INR 2.45 ratio
[2017-02-25 06:35] LABS: TROPONIN T 0.115 ug/L (0.0-0.011)
[2017-02-25] MEDS ORDERED: 0.9% Sodium Chloride 500 ML IV ONE (07:00)
[2017-02-25] MEDS: Pantoprazole 4 mg/mL 10 mL Inj IVPUSH SCH ×2 (08:08→21:47)
--- NOTE | 2017-02-25 10:41 | DRSVH ---
PROCEDURE: US BILATERAL DUPLEX DOPPLER IMAGING OF THE CAROTIDS ([id number]) INDICATIONS: tia TECHNIQUE: Color and pulse Doppler interrogation was performed of both carotid systems, with image documentation and velocity measurements. COMPARISON: None. FINDINGS: All stenosis calculations are based on NASCET criteria. Right side: Brachial blood pressure: Not obtained secondary to intravenous line present. Common carotid artery peak systolic velocity: 60 cm/sec. Internal carotid artery peak systolic velocity: 63 cm/sec. Internal carotid artery end diastolic velocity: 11 cm/sec. External carotid artery peak systolic velocity: 62 cm/sec. ICA/CCA peak systolic ratio: 1.1. Gómez scale imaging description: Mild soft plaque at the bifurcation Percent internal carotid artery stenosis: Less than 50%. Vertebral artery: Flow direction is antegrade. Left side: Brachial blood pressure: 102/60 mm Hg. Common carotid artery peak systolic velocity: 59 cm/sec. Internal carotid artery peak systolic velocity: 67 cm/sec. Internal carotid artery end diastolic velocity: 18 cm/sec. External carotid artery peak systolic velocity: 79 cm/sec. ICA/CCA peak systolic ratio: 1.14. Gómez scale imaging description: Mild soft plaque at the bifurcation Percent internal carotid artery stenosis: Less than 50%. Vertebral artery: Flow direction is antegrade. IMPRESSION: 1. Less than 50% bilateral internal carotid artery stenosis. 2. Antegrade vertebral artery flow bilaterally. Dictated by: Rosette Espinoza M.D. on 02/25/2017 at 10:38 Approved by: Rosette Espinoza M.D. on 02/25/2017 at 10:39
--- NOTE | 2017-02-25 14:01 | NUR ---
Social Work Note: Initial Assessment Data& Assessment: EMR reviewed. Efren Walhs is a 82 year old male admitted on 02/24/2017 for altered mental status. SW met with pt and pt at bedside to discuss discharge planning, SW role explained. Pt and pt are well known from previous admission last month. Per pt , pt was having trouble swallowing at home and wasn't able to drink water or eat any food for the last couple of days. Pt is current with [facility], RN and . Pt and pt would like these services resumed at time of discharge. SW spoke with Sonny with [facility] and informed him of this, access provided. Pt and pt live in [place]. Pt uses a walker for ambulation assistance. Pt does not have SNF hx. Pt does not have LTC insurance or VA benefits. SW requested DPOA/Advance Directive paperwork for pt chart after it is notarized. Pt explained their daughter is flying in from [place] on April 01. Pt also shared that their friends from [facility] are being very helpful and supportive in the home. Pt is driving again and will be driving for pt until he feels strong enough to drive again. Pt and pt anxious to return home with home health as soon as possible. Pt and pt deny any other needs at this time. SW to continue to follow if any needs arise. Plan: Anticipated discharge home via POV with resume [facility] and . Pt and pt deny any other needs at this time. SW to continue to follow if any needs arise. ELEAZAR Hernandez Addendum: 02/25/17 at 1406 by SIA ROCK Amended: Links added.
--- NOTE | 2017-02-25 14:54 | PCM.ADCARE ---
Advance Care Planning Note Purpose of Encounter: To establish goals of care Parties in Attendance: The patient (Efren Walsh), the patient's Katty Walsh, a close friend of the family, Zaria Lara D.O. Decisional Capacity: Good Goals of Care Determinations: The patient's current prognosis of Possible CVA GI bleed Chronic kidney disease Were discussed with the patient and his and friend. The patient's did most of the talking as a patient does have slurred speech however the patient was able to communicate by answering yes or no via squeezing of the hand. The next day the patient was able to communicate verbally that he does want to be resuscitated but he does not want to be intubated. It is per the 's wish and the patient's wish that he be resuscitated including CPR, but does not want intubation with mechanical ventilation. The risks and benefits of being full code have been discussed and the and patient are in agreement. CODE STATUS: Resuscitate but DO NOT INTUBATE Time Spent Adv.Care Plannin minutes Zaria Lara DO Feb 24, 2017 20:24
--- NOTE | 2017-02-25 15:04 | NUR ---
Alert and following commands. Speech a bit delayed and mumbled. Taking dysphagia diet without difficulty. Vital signs stable, afebrile; paced rhythm on tele with PVCs. Supportive at bedside, actively involved with caring for him. Transferred to PCC/tele status. Report to BESSIE Marcial.
--- NOTE | 2017-02-25 15:31 | PCM.PNMED ---
Subjective Date of Service Feb 25, 2017 Subjective Patient was seen and examined at bedside today. The patient was talking more today and was able to be understood. An extensive discussion was held with both the patient and his about his current status. The patient states that he does seem to feel a little better today. Exam Vital Signs Vital Sign - Last Date Time Temp Pulse Resp B/P Pulse Ox O2 Delivery O2 Flow Rate FiO2 02/25/17 12:00 37.1 60 20 112/71 93 Nasal Cannula 1.00 Intake and Output 02/24/17 02/24/17 02/25/17 Cumulative From/Thru 15:00 23:00 07:00 02/24/17 16:17 - 02/25/17 06:38 Intake Total 95 ml 95 ml Output Total 650 ml 460 ml 1110 ml Balance -650 ml -365 ml -1015 ml Intake IV Total 95 ml 95 ml Output Urine Total 650 ml 460 ml 1110 ml # Bowel Movements 0 0 0 Exam Physical Exam: GEN: Patient was awake, able to respond to questions with this simple yes or no , the patient still does not have full verbal speech but it is improved from yesterday HEENT: PERRLA, EOMI, Neck soft supple, trachea midline, nomocephalic/atraumatic , patient still has no facial expressions CV: +S1/S2, RRR, no murmur auscultated Respiratory: CTAB, no wheezes, rales, rhonchi GI: +bowel sounds x4, soft, compressible, non TTP EXT: +1 pitting edema bilaterally, multiple bruises and mottled skin in the upper and lower extremities Psych: mood and affect were depressed and lethargic IVs and Medications Medications Reviewed: Medications were reviewed in detail Lab and Diagnostics Result Diagram: 02/25/1743402/25/17434 Assessment & Plan 82-year-old male past medical history of hypertension, [place], CAD, GERD, diabetes type II presents with GI bleed, lethargy, and slurred speech Acute blood loss anemia and GI bleed most likely secondary to supratherapeutic INR, present on admission -H&H is currently trending down 8.7/26.3 on admission today 7.9/24 -Follow up H&H tomorrow -Transfuse if hemoglobin less than 7 patient has been consented -Continue Protonix 40 IV twice a day -Continue telemetry -GI consulted -INR therapeutic 2.45 -Repeat PT/INR in the morning TIA, present on admission -CT scan negative -MRI of the brain to be done tomorrow in conjunction with cardiology as they will need to be present to manage the patient's pacemaker -Ultrasound of the carotids: Less than 50% bilateral internal carotid artery stenosis. Antegrade vertebral artery flow bilaterally. CKD, present on admission -Strict I's and O's: -650 ML's in the last 24 hours -Creatinine currently 2.25 patient's baseline is 2.2 -Nephrology consulted Hematoma around pacemaker, chronic -Continue to monitor -Add compression dressing if area starts to increase -Cardiology has examined and states that this is actually improved from the patient's baseline no further treatment needed just continue to monitor CHF exacerbation -BNP 3949 -EF 35-40% from echo done on 01/10/2017 with severe pulmonary hypertension -Cardiology following Hypotension (improving) -Blood pressure is currently 112/71 this is after a 500 mL bolus of fluid this morning -Continue to hold all diuresis -Continue to hold all blood pressure medications -Should patient's blood pressure decrease will rehydrate with gentle hydration as the patient does have known CHF Elevated troponins -Most likely stress-induced -Troponins 0.104-->0.100-->0.115 -Cardiology following pacemaker has been interrogated and is working appropriately Recent history of left lower extremity DVT (01/09/17), currently stable -Hold all anticoagulation as patient is currently supratherapeutic and currently bleeding DVT prophylaxis: -hold all medical anticoagulation at this time as patient is supratherapeutic and has a GI bleed Diet: -Speech and swallow eval completed today -Patient is on a mechanical soft diet Disposition: Patient was unable to receive the MRI today secondary to the fact that the patient needs a special procedure was cardiology involved due to his current pacemaker. The patient's case was discussed with cardiology and state that the patient is able to have an MRI with this particular pacemaker. The still has some concerns with the MRI however is amenable to having the MRI performed as on that she can be in the diagnostic suite waiting room during the procedure. At this time CVA is my #1 differential for this particular patient will follow-up with the MRI for further confirmation. GI has been consulted and may do a scope on the patient to workup this particular GI bleed. Code Status: DNI, but yes to resuscitation including CPR, IV fluids, and medications GI Prophylaxis: Proton Pump Inhibitor VTE Mechanical Devices: Intermittant Pneumatic CD Resuscitation Status: Limited Interventions Limited Interventions: Compressions, Cardioversion/Defibrillation, BiPAP, Medications and IV Fluid Time spent 45 minutes Zaria Lara DO Feb 25, 2017 15:31
--- NOTE | 2017-02-25 18:00 | CONS ---
[address] [address] CONSULTATION REPORT PATIENT: ALISA TERRAZAS : 1935 MR#: [id number] ADMIT: 02/24/2017 JOB ID: [id number] DATE OF SERVICE: 02/25/2017 REQUESTING PROVIDER: Cyril Crooks MD. REASON FOR CONSULTATION: Anemia and melena. HISTORY OF PRESENT ILLNESS: This is an 82-year-old, previously healthy male who over the last few months has been losing weight and was admitted here at [facility] for a number of major cardiopulmonary concerns including heart block requiring a pacemaker, acute on chronic kidney injury, congestive heart failure, DVT with possible PE plus bilateral pleural effusions to name a few. He had a prolonged hospitalization from January 09, 2017 and was finally discharged on February 01, 2017. Before the patient became ill, he was historically quite active and cognitively sound. Since starting anticoagulation, there has not been any visually noted black stools that when he presented in the emergency department yesterday evening with weakness, altered mental status, fatigue, chest discomfort, slurred speech, he was noted to have a drop in hemoglobin from 11.0 at discharge February 01 to 8.7 on admission in the ED yesterday. ALLERGIES: 1. PENICILLINS. 2. LATEX. 3. NARCOTICS. MEDICATIONS: 1. Coumadin. 2. Plavix. 3. Atorvastatin. 4. Carvedilol. 5. Hydralazine. 6. Isosorbide mononitrate. 7. Aspirin. 8. Chlorthalidone. 9. Torsemide. 10. Ranitidine 150 mg twice daily. PAST MEDICAL HISTORY: Apart from the diagnoses that were made at this recent admission in December, he was generally considered to be healthy. However, he does carry a history of heart attack, hypertension, CHF, chronic kidney disease, second-degree heart block prompting pacemaker on January 17, DVT of left lower extremity, also in December 2016, coronary disease, GERD, diabetes type 2. FAMILY HISTORY: There is a mention of breast cancer. 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 He does not have any history of substance abuse, alcohol or tobacco. His was at the bedside providing collateral history. REVIEW OF SYSTEMS: The patient has lost some 17 pounds in the last few months. He has been complaining of difficulty with swallowing over the last 3-4 days in particular and his has noticed he has a preference for liquids but even that can be problematic. It was difficult to extract whether he was actually having distal esophageal transit dysphagia or oropharyngeal or some combination of both of these. He does not have a history of GERD or reflux per the patient's . He has not been experiencing nausea or vomiting and no abdominal pain. Again, they had not noticed any change in the color of his stools, but in the ED he was found to have melenic output. In the hospital since being discharged, he has not had any bowel movements and there has been no nausea or vomiting. PHYSICAL EXAMINATION: Temperature afebrile 37.1, pulse 60, blood pressure 112/71, 93% on 1 L. The patient appeared to be in no acute distress, was minimally conversational and attempted to answer questions but most of the history was provided by his . Skin: Warm and dry. Lungs: Demonstrated a little bit of crackles anteriorly bilaterally. Heart regular with some lower extremity edema bilaterally perhaps, 1 to 2+. Abdomen was soft. Bowel sounds present. I did not appreciate any tenderness to palpation. He had obvious mild hematoma about the previous pacemaker site in his left upper chest. He had some evidence of ecchymoses throughout his arms. LABORATORY DATA: White count is normal, no evidence of left shift. Hemoglobin is 7.9, a little bit lower than on admission but, of course, he has been hydrated. White count 5.7, MCV 86.6, platelets are a little low at 76. INR was 5.85 on admission, it is down to 2.45 overnight. His BUN is up to 170. His creatinine was 2.25. Sodium 129, potassium 4.4, chloride 90, bicarb 20, glucose 141, lactate was 1.3, calcium 9.2. Liver tests were normal. Albumin was 3.0. Troponins are positive. His BNP was 3949 today which is a marked improvement from where it was one month prior. IMAGING: He had a chest x-ray done yesterday which showed small bibasilar pleural effusions with increased bibasilar compressive atelectasis versus evolving bronchopneumonia. He had a brain scan yesterday which showed no acute abnormality, old lacunar infarcts as previously described. He had a carotid Doppler done this morning which showed less than a 50% bilateral internal carotid artery stenosis and antegrade vertebral artery flow bilaterally. ASSESSMENT AND RECOMMENDATIONS: This is an 82-year-old male who has started to become quite sick with numerous diagnoses. He was admitted on aspirin, Plavix and Coumadin with anemia and melenic stool. There is a report of some element of dysphagia. He does not seem to have evidence of an actual esophageal impaction. Based on his wildly elevated BUN, I think it is quite possible his mental status changes could be a function of the uremia perhaps more than anything else. At this time, there is no evidence of any rapid acute GI bleed. I agree with the initiation of the Protonix which has been set up as 40 mg twice daily. Anticoagulation and anti-platelet medications are appropriately on hold. The patient's indicates that they are not interested in invasive interventions if at all possible. I discussed the prospect of an upper endoscopy, and this seemed to create some anxiety in the patient's in particular. I discussed the alternative such as a barium swallow to further evaluate what might be going on in the distal esophagus. With everything that has evolved in recent months. I certainly would be concerned about some occult malignancy in play here. For now, I have ordered a speech pathology assessment to ensure that his swallowing function is acceptable and from there he can have a full liquid diet. Depending on how things play out clinically over the next 12 through 24 hours, I think that either an anesthesia-based diagnostic upper endoscopy or at the very least a barium swallow would be appropriate. Will continue to follow. Please contact me at [phone] if there are any concerning acute GI changes.
--- NOTE | 2017-02-25 18:18 | CONS ---
[address] [address] CONSULTATION REPORT PATIENT: ALISA TERRAZAS : 1935 MR#: [id number] ADMIT: 02/24/2017 JOB ID: [id number] DATE OF SERVICE: 02/25/2017 CHIEF COMPLAINT: I was asked to consult in this patient who has a complex history and presenting with altered mental status. HISTORY OF PRESENT ILLNESS: The patient is an 81-year-old man with a recent medical history showing cardiomyopathy as well as with heart block requiring a pacer as well as DVT requiring anticoagulation which then resulted in hematoma around the pacer site. He was discharged on 01 of February after a near month-long stay at the hospital. He was treated during the hospitalization for CHF with pacemaker insertion, as noted, possible pulmonary embolism, DVT, and acute kidney injury. He was discharged home on anticoagulation with Coumadin. He did have a followup in Cardiology for his pacemaker and although the hematoma is still present, it is much improved as compared to prior findings. He was seen in last admission also by Nephrology. He presented with this current admission with lethargy and slurred speech and blood in the stool, increased bruising. The patient was reportedly having increasing weakness, decreased appetite and thirst. He was drinking but was not urinating much. Because of this, he was brought into the hospital. According to the hospitalist's notes, he was barely able to communicate at that time, although that has improved to some degree. He had imaging of his head which was a noncontrast CT which showed nonacute caudate nuclei lacunar infarcts, but no acute intracranial abnormalities. He was evaluated with hematocrit which showed that his hematocrit has now dropped to 25. He was felt to be bleeding. His INR was also elevated. He was given some fluid in the form of normal saline. Diuretics were held and all blood pressure medications were held. In the interim, he has shown some improvement in his communication, although when I speak with him today, he is nodding and acknowledging me but not speaking much. His does much of the communicating for him. PAST MEDICAL HISTORY/PROBLEM LIST: 1. History of CHF. 2. Diabetes mellitus. 3. GERD. 4. Left lower extremity DVT. 5. History of pacemaker placement for 2nd degree AV block. 6. Chronic kidney disease. 7. Hypertension. 8. History of ME. OUTPATIENT MEDICATIONS: 1. Plavix. 2. Warfarin. 3. Atorvastatin. 4. Carvedilol. 5. Hydralazine. 6. Imdur. 7. Aspirin. 8. Chlorthalidone. 9. Torsemide. 10. Ranitidine. ALLERGIES: 1. PENICILLIN. 2. LATEX. 3. NARCOTICS. SOCIAL HISTORY: Denies tobacco use. Alcohol use. FAMILY HISTORY: Mother with breast cancer. No early coronary disease. REVIEW OF SYSTEMS: Very general increased weakness. Neuro: Decreased ability to communicate, garbled speech. All remainder of 12 point review of system was difficult to be obtained at this time. PHYSICAL EXAMINATION: Blood pressure is 112/71, heart rate 60, sats are 93% on 1 L. He is afebrile. General: In no acute distress. Only speaking very intermittently. Head and neck exam: Normocephalic, atraumatic. Trachea midline. Neck: No obvious JV distention. Heart: Regular rate and rhythm. Respiratory: Coarse breath sounds. GI: Soft, nondistended. Extremities with some edema. Skin with some excoriations present. Neuro: Alert and mildly interactive. Gait is not tested. Psych: Diminished interaction. LABORATORIES: Show a sodium 125, chloride 85, BUN is 163, with a creatinine of 2.21. His BUN is now elevated to 170. Troponins elevated, but they have been elevated in the past. Hematocrit shows it has decreased to 26 from 35.5. At time of discharge now, at about 24 after some IV fluids. Platelet count also low. IMAGING: As noted on the CT scan, chest x-ray showed small bibasilar pleural effusions, increased bibasilar compressive atelectasis versus evolving bronchopneumonia. He also had a carotid duplex performed less than 50% bilateral internal artery stenosis and antegrade vertebral flow. Echocardiogram at his last admission showed that the EF was estimated 35% to 40%. Severe hypokinesis of the mid and distal septum making the septum and posterior wall. Anterior wall was also hypokinetic with an apical inferior wall being akinetic. Exam was consistent with posterior infarct and anteroseptal and apical injury. There was severe pulmonary hypertension and elevated right atrial pressures. Moderate to severe mitral regurgitation. This exam was performed when the patient was in heart block. IMPRESSION: The patient came in with altered mental status. This could be related to gastrointestinal bleeding and his increased uremia, worsening renal function. This could be related to stroke as well, although initial imaging studies do not suggest stroke, however, an MRI would be more reasonable. We did interrogate the pacemaker today and it seems to be functioning well. Dario Sanchez looked at the pacer site and the hematoma still present is much improved compared to prior evaluations. I was told this was an MRI compatible pacemaker. If MRI is chosen as a study, will need to discuss with EP or Dario Sanchez to see if any alterations need to be made to the pacer before this was performed. Regarding his cardiomyopathy, right now we are not giving him any diuretics. He does not seem to be in acute respiratory distress. Controlling his gastrointestinal bleeding as well as a renal consult would be in order. 30 minutes of ICU time was spent interviewing the patient, his and examining him MTDD
--- NOTE | 2017-02-25 18:22 | NUR ---
Transfer from 2013 Patient transferred to 2028 in bed, a/o x 2-3, speech delayed. Nuero's wnl. Patient denies pain, nausea or sob. VSS, tele paced. Left arm with bruising from hand up to elbow. Left chest with old bruising and hematoma at pacemaker site. Espino patent juana uop. No S/S of bleeding noted. Will cont poc.
[2017-02-26] VITALS (12 sets, daily range): BP systolic 91–111; BP diastolic 54–69; PULSE 53–66; RESP 16–24; O2SAT 92–99
[2017-02-26 04:48] LABS: BASOPHILS % (AUTO) 0.4 % (0-3); EOSINOPHILS % (AUTO) 1.5 % (0-5); MONOCYTES % (AUTO) 13.8 % (4-12); Mean Corpuscular Hemoglobin 28.6 pg (27.0-35.0); Mean Corpuscular Volume 87.9 fL (81-100); NEUTROPHILS % (AUTO) 57.1 % (40-74); Platelet Count 76 bil/L (150-400)
--- NOTE | 2017-02-26 06:23 | NUR ---
NOC PT has been awake most of the night. PT's ROBBIE at bedside and very involved in pt care. PT mentation is hard to assess as his likes to speak for him and he is refusing to speak jordanian. He did tell me the president appropriately. PT ORA all night. He was drinking without difficulty nectar thick fluids. V/S WNL. Denies any pain. HR has been in 60"s and paced. BUN critical again this am at 161. discussed her concern over possible MRI today as she is concerned pacemaker is not safe. She says she will discuss with her outside MD today. Family likes to sleep with all of the lights on in room. is apprehensive about medical care as she has had a bad experience in the past. Also, lipitor has been added to pt allergy list. reports that after his last d/c from hospital he was put on this med and developed a rash and throat swelling. His PCP told him to stop the med.
--- NOTE | 2017-02-26 08:50 | NUR ---
SOLUTION STRATEGIST notes from yesterday indicate that pt is safe to swallow dysphagia mechanical textures and nectar thick liquids without s/s of aspiration; however, surgery has cleared pt for a full liquid diet. Diet order was changed to full liquid, nectar thick. When cleared by surgery, pt may advance to dysphagia mechanical. Discussed with RN.
[2017-02-26] MEDS: Pantoprazole 4 mg/mL 10 mL Inj IVPUSH SCH ×2 (09:29→21:54)
--- NOTE | 2017-02-26 13:33 | PCM.CHPMED ---
Subjective Date of Service: Feb 26, 2017 Provider requesting consult: Milad Tucker MD Primary Physician: Admitting Physician: Zaria Lara DO Primary Care Physician: Valencia Jamison DO Attending Physician: Zaria Lara DO Admit Status: From the Emergency Department, Admit to [facility], [facility] Telemetry Chief Complaint: Chief Complaint: Increased lethargy and fatigue History of Present Illness: Nephrology Consult Note Efren Walsh is an unfortunate 82yo gentleman who presents back at [facility] less than one month after being discharged post pacemaker placement for a severe bradycardia secondary to Type 2 heart block. The patients prior hospitalization was significantly complicated due to a myriad of comorbidities including hematoma at the site of pacemaker insertion and systolic congestive heart failure with an EF of 35-40% as well as pulmonary hypertension and bilateral pleural effusions. The patient was started on warfarin for a left lower extremity DVT and suspected possible pulmonary embolus however further testing including VQ lung scan was refused by the patient and his . At the last hospitalization the patient also tested positive for microscopic occult blood in his stool but remained on anticoagulation with warfarin given the known DVT. The patient's chief complaint for this admission is worsening lethargy and slurred speech, as well as a report of melena. The patient's states that he is entirely appropriate and answering questions however he remains significantly slow with his speech and delayed with his thinking. The states that this process is been ongoing and worsening steadily for approximately the last week or so. Reports from admission are that the patient has been significantly thirsty recently with decreased urinary production. The states that the patient was previously completely healthy without any health concerns until the past hospitalization. The gentleman is described as entirely independent at baseline without any signs of dementia. The also reports a recent trouble with swallowing which is entirely new. Nursing reports during this hospitalization note no signs of blood in stool. There is no report of a bowel movement as of yet. Review of Systems: A comprehensive review of systems was obtained and all are negative except what is included in the history of present illness. [facility] Past Medical History Discharge diagnosis as of 02/01/2017 1. Pacemaker insertion site hematoma 2. chronic systolic congestive heart failure 3. Bilateral large pleural effusions due to CHF 4. Left lower extremity DVT 5. Possible pulmonary embolism 6. Acute kidney injury on chronic kidney disease 7. 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 Metabolic acidosis, acute (possible type IV RTA) 9. Hypertension 10. Bilateral lower leg and right upper extremity edema and erythema 11. Coronary artery disease 12. Gastroesophageal reflux disease 13. Diabetes mellitus type II 14. Pulmonary hypertension. Bedside Blood Glucose: 208 Surgical History Pacemaker placed January 17, 2017 Home Medications Atorvastatin 40 mg daily at bedtime Carvedilol 6.25 mg twice a day Chlorthalidone 25 mg daily Hydralazine 50 mg twice a day Isosorbide Mononitrate Extended Release 30 mg twice a day Torsemide 20 mg daily Warfarin 1.5 mg daily Clopidogrel 75 mg daily Ranitidine 150mg twice daily Allergies: Coded Allergies: Penicillins (Verified Allergy, Intermediate, rash, 01/09/17) atorvastatin (Verified Allergy, Intermediate, Rash, 02/25/17) pt states he was sent home with med after last d/c and that he took med and developed a rash and "throat swelling". His PCP reportedly told PT to stop taking this med. Will list as allergy. latex (Verified Allergy, Intermediate, rash, 01/09/17) Uncoded Allergies: narcotics per (Allergy, Severe, per pt's tongue swells and develops a rash, 02/24/17) Family History Family History Mother at [id number] from breast cancer Father in his 70s from "old age" Social History Occupation: retiredHx Alcohol Use: NoHx Substance Use: NoHx Tobacco Use: No Smoking Status: Unknown if Ever Smoker Living Arrangement: with Family (with a home health nurse and physical therapy ) Exam Vital Signs Vital Sign - Last Date Time Temp Pulse Resp B/P Pulse Ox O2 Delivery O2 Flow Rate FiO2 02/26/17 09:41 Supplement Oxygen 02/26/17 09:41 58 20 96/54 99 2.00 02/26/17 03:50 35.3 Intake and Output 02/25/17 02/25/17 02/26/17 Cumulative From/Thru 15:00 23:00 07:00 02/24/17 16:17 - 02/26/17 05:52 Intake Total 0 ml 95 ml Output Total 550 ml 1660 ml Balance -550 ml -1565 ml Intake Oral 0 ml 0 ml IV Total 95 ml Output Urine Total 550 ml 1660 ml # Bowel Movements 0 Additional Information: Gen.: Elderly male lying in bed in no acute distress appearing approximately stated age Eyes: Pupils equal round and reactive to light, extraocular motion intact, anicteric sclera, notable conjunctival edema HENT: Normocephalic atraumatic, dry mucous membranes, no central cyanosis, oropharynx clear Neck: Supple, trachea midline, no noted JVD or lymphadenopathy Cardiovascular: Regular rate and rhythm no murmurs rubs or gallops noted Lungs: Mild coarse breath sounds in the posterior lower lung parsons on the left more than right, no bronchial or wheezing noted Abdomen: Normoactive bowel sounds, soft, nontender, no organomegaly, tympanic to percussion : Espino in place, urine is dark yellow Extremities: Pulses intact bilaterally at the radial and dorsalis pedis, no edema cyanosis or clubbing noted, significant ecchymosis on entirety of left forearm Skin: Warm and dry, large 13 cm cystic structure at pacemaker insertion site without signs of fluctuance or overlying erythema without nontender on palpation , healing left flank hematoma, mild venous stasis changes in the right lower extremity around the lower tibia with mild darkening and induration, mild excoriations noted in shins bilaterally, notable decreased skin turgor consistent with dehydration Neuro: Cranial nerves II through XII intact, notable significant dysdiadochokinesia in the upper extremities, no pronator drift MSK: Strength intact bilaterally in pipe puller, bicep, tricep, plantar, dorsiflexion, knee extension. Psych: Flat affect moderately depressed mood, answers questions appropriately with a delayed response time Lab and Diagnostics Result Diagram: 02/26/1743902/26/17 0440 X-Rays, CTs and MRIs X-RAY CHEST ONE VIEW, PORTABLE IMPRESSION: Small bibasilar pleural effusions, with increased bibasilar compressive atelectasis versus evolving bronchopneumonia. Dictated by: Barron Sheridan M.D. on 02/24/2017 at 17:50 Approved by: Barron Sheridan M.D. on 02/24/2017 at 17:52 CT BRAIN WITHOUT CONTRAST IMPRESSION: 1. No acute intracranial abnormalities. 2. Nonacute bilateral caudate nuclei lacunar infarcts as before. Dictated by: Barron Sheridan M.D. on 02/24/2017 at 17:46 Approved by: Barron Sheridan M.D. on 02/24/2017 at 17:50 Additional Diagnostics: US BILATERAL DUPLEX DOPPLER IMAGING OF THE CAROTIDS IMPRESSION: 1. Less than 50% bilateral internal carotid artery stenosis. 2. Antegrade vertebral artery flow bilaterally. Dictated by: Rosette Espinoza M.D. on 02/25/2017 at 10:38 Approved by: Rosette Espinoza M.D. on 02/25/2017 at 10:39 Assessment & Plan Assessment 52-year-old male with past medical history remarkable for systolic congestive heart failure, pulmonary hypertension, recent left lower extremity DVT on warfarin, chronic kidney injury, recent pacemaker placement for severe bradycardia secondary to type II heart block presents with increasing fatigue for approximately one week. 1. Acute blood loss anemia, present on admission - Baseline hemoglobin approximately 11-12 - History of positive stool occult blood one month prior after initiating warfarin therapy for left lower extremity DVT - Report the patient is on both full dose aspirin and clopidogrel daily - Hold warfarin, aspirin and clopidogrel - GI has been consulted for likely upper GI bleed given history of chronic full dose aspirin, positive stool cold blood at last admission, increased BUN, report of melena, and significant lower hemoglobin than at baseline, gastroenterology services currently considering options including EGD with anesthesia versus possible barium swallow - Type and cross, nursing ordered to transfuse 1 unit of packed RBCs, currently 2 units PRBCs available at blood bank 2. Acute kidney injury on chronic kidney disease stage III, present on admission - Recent Oliguria is likely secondary to prerenal azotemia - Patient was started on normal saline at 100 mils per hour - IV therapy to place new large bore IV for blood transfusion with 1 unit of packed RBCs to be given as discussed above - Monitor fluid status to avoid volume overload secondary to systolic CHF - Avoid further nephrotoxic insults by consulting pharmacy if there is a question about medications including no NSAIDs, ANDREW inhibitor's, iodine contrast , vancomycin/Zosyn and Bactrim - Hold outpatient diuretics including chlorthalidone and torsemide 3. Chronic systolic congestive heart failure (HFrEF), present on admission - Patient appears to be notably dehydrated given low skin turgor sure, oliguric (470ml out yesterday), with significant new anemia - Patient was started on normal saline at 100 mils per hour - IV therapy to place new large bore IV for blood transfusion with 1 unit of packed RBCs to be given as discussed above - Monitor for signs of fluid overload - May restart carvedilol when patient becomes normotensive 4. Left lower extremity deep vein thrombosis, present on admission, chronic - Hold warfarin therapy given supratherapeutic INR at admission - Hold warfarin therapy given new anemia, elevated BUN, reports of melena CONSISTENT with likely upper GI bleed - Once cleared by gastroenterology consider starting anticoagulation like Dabigatran for ease of dosing and the added benefit of reversibility 5. Encephalopathy, present on admission, acute - New onset lethargy likely explained due to severe anemia and dehydration - CT scan of the head was negative for any signs of new recent stroke - Neuro exam showed significant delay but patient was entirely appropriate without focal neurologic deficits - Monitor for signs of improvement with administration of 1 unit PRBC 6. Dysphasia, present on admission, acute - Speech therapies following with current recommendations including initiating puree/DM solids with nectar thick liquids. Pt will require 1:1 supervision for all meals. - Gastroenterology consulted for possible upper endoscopy given likely upper GI bleed 7. Gastroesophageal reflux disease, present on admission, chronic - Initiate Protonix 40 mg twice a day - Gastroenterology consulted for possible upper endoscopy given likely upper GI bleed 8. chronic Diabetes mellitus type II, present on admission - Patient normally is able to control his blood glucose with diet and exercise reportedly eating an organic diet - Low Correction scale lispro 9. Chronic coronary artery disease, present on admission - EKG is ordered when necessary - hold aspirin, clopidogrel, atorvastatin given likely GI bleed - May consider restarting Isosorbide Mononitrate when patient's blood pressure improved 10. Chronic hypertension, present on admission - Hold blood pressure medications including carvedilol, hydralazine, and chlorthalidone given hypotension at admission - May restart blood pressure medications this patient returns normotensive to hypertensive - Likely restart carvedilol first Nephrology service will continue to follow this patient thank you for this most interesting consult. Patient was seen and examined. Agreed with Dr. Powell' assessment and plan as outlined. Thank you for the consultation. Problems: Pain Evaluation: Adequate Pain Control GI Prophylaxis: Proton Pump Inhibitor VTE Prophylaxis Indicated: Contraindicated VTE Prophylaxis: Theraputic Anticoag with Warfarin VTE Mechanical Devices: Intermittant Pneumatic CD Resuscitation Status: Limited Interventions Limited Interventions: Compressions, Cardioversion/Defibrillation, BiPAP, Medications and IV Fluid Robert Powell DO Feb 26, 2017 13:33 Marisel Newman MD Feb 27, 2017 09:03
[2017-02-26] MEDS: 0.9% Sodium Chloride 250 ML IV SCH (14:11)
[2017-02-26] MEDS: 0.9% Sodium Chloride 1,000 ML IV SCH (14:11)
--- NOTE | 2017-02-26 16:02 | PCM.PNMED ---
Subjective Date of Service Feb 26, 2017 Subjective Patient continues to be weak and pale. He was able to speak today and was able to be understood. He stays in bed d/t weakness. Exam Vital Signs Vital Sign - Last Date Time Temp Pulse Resp B/P Pulse Ox O2 Delivery O2 Flow Rate FiO2 02/26/17 14:18 36.7 66 16 109/69 02/26/17 13:40 92 Room Air 02/26/17 09:41 2.00 Intake and Output 02/25/17 02/25/17 02/26/17 Cumulative From/Thru 15:00 23:00 07:00 02/24/17 16:17 - 02/26/17 05:52 Intake Total 0 ml 95 ml Output Total 550 ml 1660 ml Balance -550 ml -1565 ml Intake Oral 0 ml 0 ml IV Total 95 ml Output Urine Total 550 ml 1660 ml # Bowel Movements 0 Exam Gen.: Elderly pale and weak looking male lying in bed in no acute distress Eyes: PERRl, anicteric sclera, notable conjunctival edema HENT: NCAT, dry mucous membranes Neck: Supple,no noted JVD or lymphadenopathy Cardiovascular: Regular rate and rhythm no murmurs rubs or gallops noted Lungs: Mild coarse breath sounds, posterior lower lung parsons, L>R Abdomen: NABS,soft and nontender : Espino in place, urine is dark yellow, about 300 mls Extremities: Pulses intact bilaterally, no edema, cyanosis, clubbing Skin: Notable decreased skin turgor Neuro: Grossly intact Musculoskeletal: Strength intact bilaterally in upper and lower extremities IVs and Medications IV Fluids NS IV @ 80mls/hr Medications Reviewed: Medications were reviewed in detail Lab and Diagnostics Result Diagram: 02/26/17 04402/26/17 0440 X-Rays, CTs and MRIs PROCEDURE: X-RAY CHEST ONE VIEW, PORTABLE ([id number]) IMPRESSION: Small bibasilar pleural effusions, with increased bibasilar compressive atelectasis versus evolving bronchopneumonia. Dictated by: Barron Sheridan M.D. on 02/24/2017 at 17:50 Approved by: Barron Sheridan M.D. on 02/24/2017 at 17:52 PROCEDURE: CT BRAIN WITHOUT CONTRAST ([id number]) IMPRESSION: 1. No acute intracranial abnormalities. 2. Nonacute bilateral caudate nuclei lacunar infarcts as before. Dictated by: Barron Sheridan M.D. on 02/24/2017 at 17:46 Approved by: Barron Sheridan M.D. on 02/24/2017 at 17:50 PROCEDURE: US BILATERAL DUPLEX DOPPLER IMAGING OF THE CAROTIDS ([id number]) IMPRESSION: 1. Less than 50% bilateral internal carotid artery stenosis. 2. Antegrade vertebral artery flow bilaterally. Dictated by: Rosette Espinoza M.D. on 02/25/2017 at 10:38 Approved by: Rosette Espinoza M.D. on 02/25/2017 at 10:39 Assessment & Plan 82-year-old male past medical history of hypertension, NH, CAD, systolic congestive heart failure, pulmonary hypertension, diabetes type II presents, recent left lower extremity DVT on warfarin, chronic kidney injury, recent pacemaker placement for severe bradycardia secondary to type II heart block presents with increasing fatigue, GI bleed, lethargy, and slurred speech. Hospital day 3. 1. Acute blood loss anemia and GI bleed most likely secondary to supratherapeutic INR, present on admission -H&H is currently trending down 8.7/26.3 on admission today 8.0/24.6. Hemoglobin of 12.3 on 02/08/17 -History of positive stool occult blood one month prior after initiating warfarin therapy for left lower extremity DVT -Patient is on both full dose aspirin and clopidogrel daily as well as Warfarin. Will hold these for now. -GI has been consulted for likely upper GI bleed given history of chronic full dose aspirin, positive stool cold blood at last admission, increased BUN, report of melena, and significant lower hemoglobin than at baseline, gastroenterology services currently considering options including EGD with anesthesia versus possible barium swallow -Type and cross, nursing ordered to transfuse 1 unit of packed RBCs, currently 2 units PRBCs available at blood bank -Continue Protonix 40 IV twice a day -Monitor labs 2. Acute on chronic kidney injury, present on admission - Most likely d/t prerenal azotemia - Strict I's and O's: -550 ML's in the last 24 hours - Creatinine currently 2.44 patient's baseline is 2.2 - Nephrology consulted, we appreciated their input - Started NS IV @ 80 mls/hr and monitor fluid status to avoid volume overload secondary to systolic CHF - IV therapy to place new large bore IV for blood transfusion with 1 unit of packed RBCs to be given as discussed above per nephrology - Avoid further nephrotoxic insults by consulting pharmacy if there is a question about medications including no NSAIDs, ANDREW inhibitor's, iodine contrast , vancomycin/Zosyn and Bactrim - Hold outpatient diuretics including chlorthalidone and torsemide 3. Hypotension, present on admission -Blood pressure is currently 98/64 -Continue to hold all diuresis and all blood pressure medications -Started NS IV @ 80 mls/hr and monitor fluid status to avoid volume overload secondary to systolic CHF 4. Possible TIA, present on admission -CT scan negative, patient's declines MRI even though patient has MRI compatible pacemaker -Ultrasound of the carotids: Less than 50% bilateral internal carotid artery stenosis. Antegrade vertebral artery flow bilaterally. 5. Hematoma around pacemaker, chronic -Cardiology has examined and states that this is actually improved from the patient's baseline no further treatment needed just continue to monitor 6. Elevated troponins -Most likely stress-induced -Troponins 0.104-->0.100-->0.115 -Cardiology following pacemaker has been interrogated and is working appropriately 7. Chronic systolic congestive heart failure, present on admission --EF 35-40% from echo done on 01/10/2017 with severe pulmonary hypertension - Patient appears to be notably dehydrated, oliguric, with significant new anemia - Patient was started on NS IV @ 80 mls/hr. Monitor for signs of fluid overload - IV therapy to place new large bore IV for blood transfusion with 1 unit of packed RBCs to be given as discussed above - May restart carvedilol when patient becomes normotensive 8. Recent history of left lower extremity DVT (01/09/17), currently stable -Hold all anticoagulation as patient is currently supratherapeutic and currently bleeding DVT prophylaxis: -hold all medical anticoagulation at this time as patient is supratherapeutic and has a GI bleed Diet: -Speech and swallow eval completed today -Patient is on a mechanical soft diet Disposition: Patient was unable to receive the MRI today secondary to the fact that the patient needs a special procedure was cardiology involved due to his current pacemaker. The patient's case was discussed with cardiology and state that the patient is able to have an MRI with this particular pacemaker. The still has some concerns with the MRI however is amenable to having the MRI performed as on that she can be in the diagnostic suite waiting room during the procedure. At this time CVA is my #1 differential for this particular patient will follow-up with the MRI for further confirmation. GI has been consulted and may do a scope on the patient to workup this particular GI bleed. Code Status: DNI, but yes to resuscitation including CPR, IV fluids, and medications Pain Evaluation: Adequate Pain Control GI Prophylaxis: Proton Pump Inhibitor VTE Prophylaxis: Theraputic Anticoag with Warfarin VTE Mechanical Devices: Intermittant Pneumatic CD Resuscitation Status: Limited Interventions Limited Interventions: Compressions, Cardioversion/Defibrillation, BiPAP, Medications and IV Fluid Attending Statement The patient was seen and examined together with Dr. Thompson on 02/26/2017 and I agree with the history, exam and plan as outlined in the note above. . Kathleen Thompson DO Feb 26, 2017 16:02 Milad Tucker MD Mar 02, 2017 19:04
--- NOTE | 2017-02-26 17:57 | NUR ---
Activity/Blood Patient alert and oriented to self and place. Patient gives mostly one word answers and sometimes needs to repeat questions in Swiss, his primary language. At baseline patient speaks/understands Mohawk without issue. Patient slightly hypotensive this morning, BP in the 90s. Patient has no appetite and states he has not really eaten in 4-5 days due to difficulty swallowing. Pt on Full liquid diet pending Barium swallow. Patient bedrest per MD, is able to assist in turning himself in bed. Espino catheter in place and draining juana urine. at bedside and assists with his care. Patient anemic and hypotensive, recieved one unit PRBCs. Patient tolerated blood without issue and BP is currently normotensive.
--- NOTE | 2017-02-26 20:20 | PROG NOTE ---
[address] [address] PROGRESS NOTE PATIENT: ALISA TERRAZAS : 1935 MR#: [id number] ADMIT: 02/24/2017 JOB ID: [id number] DATE: 02/26/2017 SUBJECTIVE: No further clinical bleeding. H and H is stable. The patient seems to be tolerating a full liquid diet and has clearance to progress to dysphagia diet. The patient's is still quite concerned about the prospect of the invasiveness of an endoscopy and would prefer noninvasive workup. OBJECTIVE: Afebrile, pulse in the 50s, blood pressure stable this afternoon 100/64, 92% on room air. The patient was sleeping comfortably. In no distress. BUN is still elevated at 161. Creatinine is 2.44. His troponins were positive. INR was not repeated today but yesterday was 2.45, hemoglobin stable at 8.0/24.6, white count 5.4, platelets 76. ASSESSMENT AND PLAN: An 82-year-old male with multiple recently diagnosed medical comorbidities admitted with anemia found to be profoundly uremic with an element of subacute dysphagia. There is no sign of any active ongoing hemorrhage, but based on his swallowing difficulties, I am concerned about the prospect of a neoplasm in the distal esophagus. Barium esophagram was ordered today. Whether we proceed with esophagogastroduodenoscopy and/or whether we advance diet to dysphagia consistency diet really depends on these results and an updated PT/INR. For now, I would recommend continuation of full liquid diet as he tolerates and would defer the uremia and other major comorbidities to his primary service for now. Will continue to follow. The barium swallow was ordered by me.
[2017-02-27] VITALS (10 sets, daily range): BP systolic 103–114; BP diastolic 65–71; PULSE 56–69; RESP 16–24; O2SAT 92–99
--- NOTE | 2017-02-27 02:30 | NUR ---
Skin Pt turns himself in bed. He does not need to be q 2 hr turns. Will change to q4 hr turns. Mepilex replaced to sacrum. Will cont to monitor
[2017-02-27] MEDS: 0.9% Sodium Chloride 1,000 ML IV SCH ×2 (03:09→21:26)
--- NOTE | 2017-02-27 04:35 | NUR ---
Increased confusion/hypothermia Pt found undressed in bed. IV out. Cardiac leads off. Pt changed and covered in warm blankets. He does know where he is "the hospital" and he is aware of his name. Denies pain. Temp is 34C Reported temp to . JULIA cota ordered. Pt is currently bundled in blankets. Room temp turned up.
--- NOTE | 2017-02-27 04:53 | NUR ---
IV Pt pulled one IV out. His other IV was occluded. Unable to place IV despite two attempts per BESSIE Leonardo now in place. Will attempt IV again once pt is warm
[2017-02-27 05:07] LABS: BASOPHILS % (AUTO) 0.4 % (0-3); EOSINOPHILS % (AUTO) 0.6 % (0-5); MONOCYTES % (AUTO) 14.3 % (4-12); Mean Corpuscular Hemoglobin 29.3 pg (27.0-35.0); Mean Corpuscular Volume 86.5 fL (81-100); NEUTROPHILS % (AUTO) 65.1 % (40-74); Platelet Count 104 bil/L (150-400)
--- NOTE | 2017-02-27 05:26 | NUR ---
Temp Pt is currently 35.4C JULIA cota will remain in place. Pt answers questions when prompted a few times. Non agitated. Appears sleepy. MD here to see patient. Waiting on lab workup Care ongoing
--- NOTE | 2017-02-27 06:00 | NUR ---
Oxygen requirement Pt is 89% on RA Placed on 2LNC Oxygen saturation increases to 98%
--- NOTE | 2017-02-27 06:35 | NUR ---
Neuro Pt is responsive to repeated loud shouts. He opens his eyes briefly and then returns to sleep. His response to simple questions is delayed/mumbled. Does not grasp my hand. Reported these signs to MD Awaiting further orders.
--- NOTE | 2017-02-27 06:37 | NUR ---
IVTherapy IVtherapy aware that the pt needs an IV. Power plans to be here shortly.
--- NOTE | 2017-02-27 06:38 | NUR ---
JULIA cota off Temp is 35.9. His skin is warm to touch.
[2017-02-27] MEDS: Pantoprazole 4 mg/mL 10 mL Inj IVPUSH SCH ×2 (07:52→21:16)
[2017-02-27 08:47] LABS: INR 1.25 ratio
--- NOTE | 2017-02-27 10:45 | NUR ---
NUTRITION ASSESSMENT: ASSESS: Pt is an 82yo M admitted for AMS, increasing fatigue, GI bleed, lethargy, and slurred speech. GI is following and as pt has been experiencing dysphagia he will likely have barium swallow study today. There is concern for neoplasm in the distal esophagus. GI currently has pt on a FL diet with NT liquids. ST has passed pt for dysphagia mechanical diet once okay per GI to advance diet. Nephrology is following for SHMUEL. PO has been fair at 25-90% of meals. PMHX: HTN, [place], CAD, CHF, pulmonary hypertension, T2DM, chronic kidney injury LABS: Reviewed. Bun 151, Stretching Press Operator 2.44, Glu 137, Alb 3.0 MEDS: Reviewed. GI: BMx1 02/26 SKIN: Silvano 15 CURRENT WTS: 78.2kg, BMI 24kg/m2, admit wt 76.8kg DIET: Full liquid, PO 25-90% EST. NEEDS: SHMUEL Kcals: 1955-2346kcal/day (25-30kcal/kg) Pro: 65-80g/day (.8-1.0g/kg) NUTRITION DIAGNOSIS: 1.) Chew/swallow difficulty related to dysphagia and poor dentition as evidence by need for dysphagia mechanical diet w/NT liquids per ST. NUTRITION INTERVENTION: 1.) Will add NT Glucerna on L tray to help supplement PO intake. MONITOR / EVAL: PO, ST, labs, wt, GI, POC, nutrition status. Will continue to monitor per moderate nutrition risk guidelines.
[2017-02-27] MEDS: 0.9% Sodium Chloride 250 ML IV SCH (10:52)
--- NOTE | 2017-02-27 13:47 | PCM.PNMED ---
Subjective Date of Service Feb 27, 2017 Subjective Patient is at his baseline. He was hypothermic over night, with O2 89% on RA and 98% on 2LNC. Pulled his IV line in sleep. Not ambulating d/t weakness.Had ate some breakfast this morning. Patient's 's concern is his lack of activity d/t his immobilization. Exam Vital Signs Vital Sign - Last Date Time Temp Pulse Resp B/P Pulse Ox O2 Delivery O2 Flow Rate FiO2 02/27/17 12:21 35.5 63 16 114/71 97 Nasal Cannula 2.00 Intake and Output 02/26/17 02/26/17 02/27/17 Cumulative From/Thru 15:00 23:00 07:00 02/24/17 16:17 - 02/27/17 06:55 Intake Total 734 ml 480 ml 1309 ml Output Total 100 ml 550 ml 2310 ml Balance 634 ml -70 ml -1001 ml Intake Oral 300 ml 300 ml IV Total 434 ml 480 ml 1009 ml Output Urine Total 100 ml 550 ml 2310 ml # Bowel Movements 1 1 Exam Gen.: Elderly pale and weak looking male lying in bed in no acute distress HENT: NCAT, dry mucous membranes Cardiovascular: Regular rate and rhythm no murmurs rubs or gallops noted Lungs: Mild coarse breath sounds, posterior lower lung parsons, L>R Abdomen: NABS, soft and nontender : Espino in place, urine is dark yellow Extremities: Pulses intact bilaterally, no edema, cyanosis, clubbing Skin: Notable decreased skin turgor Lab and Diagnostics Result Diagram: 02/27/1744402/27/17 044 X-Rays, CTs and MRIs PROCEDURE: X-RAY CHEST ONE VIEW, PORTABLE ([id number]) IMPRESSION: Small bibasilar pleural effusions, with increased bibasilar compressive atelectasis versus evolving bronchopneumonia. Dictated by: Barron Sheridan M.D. on 02/24/2017 at 17:50 Approved by: Barron Sheridan M.D. on 02/24/2017 at 17:52 PROCEDURE: CT BRAIN WITHOUT CONTRAST ([id number]) IMPRESSION: 1. No acute intracranial abnormalities. 2. Nonacute bilateral caudate nuclei lacunar infarcts as before. Dictated by: Barron Sheridan M.D. on 02/24/2017 at 17:46 Approved by: Barron Sheridan M.D. on 02/24/2017 at 17:50 PROCEDURE: US BILATERAL DUPLEX DOPPLER IMAGING OF THE CAROTIDS ([id number]) IMPRESSION: 1. Less than 50% bilateral internal carotid artery stenosis. 2. Antegrade vertebral artery flow bilaterally. Dictated by: Rosette Espinoza M.D. on 02/25/2017 at 10:38 Approved by: Rosette Espinoza M.D. 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 Hospital day 4. 1. Acute blood loss anemia and GI bleed most likely secondary to supratherapeutic INR, present on admission, active -Improved H&H 9.8/28.9 this morning (8.0/24.6 yesterday), s/p 1 unit of packed RBCs transfusion -History of positive stool occult blood one month prior after initiating warfarin therapy for left lower extremity DVT -Patient is on both full dose aspirin and clopidogrel daily as well as Warfarin. Will hold these for now. -GI has been consulted for likely upper GI bleed given history of chronic full dose aspirin, positive stool cold blood at last admission, increased BUN, report of melena, and significant lower hemoglobin than at baseline. Plan for today is to perform barium esophagram d/t concern about a neoplasm in the distal esophagus -Continue Protonix drip -Monitor labs 2. Acute on chronic kidney injury, present on admission, active - Most likely d/t prerenal azotemia - Strict I's and O's - Creatinine currently 2.44 patient's baseline is 2.2 - Nephrology consulted, we appreciated their input. patient is d/f dialysis tomorrow - Continue NS IV @ 60 mls/hr and monitor fluid status to avoid volume overload secondary to systolic CHF - Avoid further nephrotoxic insults by consulting pharmacy if there is a question about medications including no NSAIDs, ANDREW inhibitor's, iodine contrast , vancomycin/Zosyn and Bactrim - Hold outpatient diuretics including chlorthalidone and torsemide 3. Hypotension, present on admission, improved -Blood pressure is currently 114/71 -Continue to hold all diuresis and all blood pressure medications -Started NS IV @ 60 mls/hr and monitor fluid status to avoid volume overload secondary to systolic CHF 4. Possible TIA, present on admission, improving -CT scan negative, patient's declines MRI even though patient has MRI compatible pacemaker -Ultrasound of the carotids: Less than 50% bilateral internal carotid artery stenosis. Antegrade vertebral artery flow bilaterally. 5. Hematoma around pacemaker, chronic, stable -Cardiology has examined and states that this is actually improved from the patient's baseline no further treatment needed just continue to monitor 6. Elevated troponins of uncertain significance, present on admission, active -Most likely stress-induced -Troponins 0.104-->0.100-->0.115 -Cardiology following pacemaker has been interrogated and is working appropriately 7. Chronic systolic congestive heart failure, present on admission, active --EF 35-40% from echo done on 01/10/2017 with severe pulmonary hypertension. New ECHO results pending - Patient appears to be notably dehydrated, oliguric, with significant new anemia - Patient was started on NS IV @ 60 mls/hr. Monitor for signs of fluid overload - Carvedilol restarted as patient normotensive now 8. Recent history of left lower extremity DVT (01/09/17), currently stable -Hold all anticoagulation as patient is currently supratherapeutic and currently bleeding DVT prophylaxis: -hold all medical anticoagulation at this time as patient is supratherapeutic and has a GI bleed Diet: -Speech and swallow eval completed today -Patient is on a mechanical soft diet Code Status: DNI, but yes to resuscitation including CPR, IV fluids, and medications Pain Evaluation: Adequate Pain Control GI Prophylaxis: Proton Pump Inhibitor VTE Prophylaxis: Theraputic Anticoag with Warfarin VTE Mechanical Devices: Intermittant Pneumatic CD Resuscitation Status: Limited Interventions Limited Interventions: Compressions, Cardioversion/Defibrillation, BiPAP, Medications and IV Fluid Attending Statement The patient was seen and examined together with Dr. Thompson on 02/27/2017 and I agree with the history, exam and plan as outlined in the note above. . Kathleen Thompson DO Feb 27, 2017 13:47 Milad Tucker MD Mar 03, 2017 17:51 Kathleen Thompson DO Feb 27, 2017 13:47 Medications and IV Fluid Kathleen Thompson DO Feb 27, 2017 13:47
--- NOTE | 2017-02-27 14:13 | NUR ---
to X-ray pt ordered for barium swallow pt transported in bed, alert and mild confused. SL. departed unit at 1410. Telemetry informed.
--- NOTE | 2017-02-27 14:59 | PCM.PNNEPH ---
Robert Powell DO 02/27/17 1459: Subjective Date of Service Feb 27, 2017 Subjective The patient states that he feels better today and the agrees that the patient looks significantly improved today after administration of blood products yesterday. The patient states that he was able to eat breakfast with a moderately improved appetite today. The patient and his understand that there will be a barium swallow evaluation today. The patient's diet will likely be advanced by GI from full liquids after this barium swallow evaluation. Exam Vital Signs Vital Sign - Last Date Time Temp Pulse Resp B/P Pulse Ox O2 Delivery O2 Flow Rate FiO2 02/27/17 12:21 35.5 63 16 114/71 97 Nasal Cannula 2.00 Intake and Output 02/26/17 02/26/17 02/27/17 Cumulative From/Thru 15:00 23:00 07:00 02/24/17 16:17 - 02/27/17 06:55 Intake Total 734 ml 480 ml 1309 ml Output Total 100 ml 550 ml 2310 ml Balance 634 ml -70 ml -1001 ml Intake Oral 300 ml 300 ml IV Total 434 ml 480 ml 1009 ml Output Urine Total 100 ml 550 ml 2310 ml # Bowel Movements 1 1 Exam Gen.: Elderly male lying in bed in no acute distress appearing approximately stated age, significant improvement in skin color from day prior Eyes: Pupils equal round and reactive to light, extraocular motion intact, anicteric sclera, notable conjunctival edema HENT: Normocephalic atraumatic, dry mucous membranes, no central cyanosis, oropharynx clear Neck: Supple, trachea midline, no noted JVD or lymphadenopathy Cardiovascular: Regular rate and rhythm no murmurs rubs or gallops noted Lungs: Mild coarse breath sounds in the posterior lower lung parsons on the left more than right, no bronchial or wheezing noted Abdomen: Normoactive bowel sounds, soft, nontender, no organomegaly, tympanic to percussion : Espino in place, urine is dark yellow Extremities: Pulses intact bilaterally at the radial and dorsalis pedis, no edema cyanosis or clubbing noted, significant ecchymosis on entirety of left forearm Skin: Warm and dry, large 13 cm cystic structure at pacemaker insertion site without signs of fluctuance or overlying erythema without nontender on palpation , healing left flank hematoma, mild venous stasis changes in the right lower extremity around the lower tibia with mild darkening and induration, mild excoriations noted in shins bilaterally, notable decreased skin turgor consistent with dehydration Neuro: No focal neurologic deficits compared to day prior, can move all extremities MSK: no swollen or painful joints Psych: Flat affect moderately depressed mood, answers questions appropriately with a delayed response time IVs and Medications Medications Reviewed: Medications were reviewed in detail Lab and Diagnostics Result Diagram: 02/27/1744402/27/17444 X-Rays, CTs and MRIs PROCEDURE: X-RAY CHEST ONE VIEW, PORTABLE ([id number]) IMPRESSION: Small bibasilar pleural effusions, with increased bibasilar compressive atelectasis versus evolving bronchopneumonia. Dictated by: Barron Sheridan M.D. on 02/24/2017 at 17:50 Approved by: Barron Sheridan M.D. on 02/24/2017 at 17:52 PROCEDURE: CT BRAIN WITHOUT CONTRAST ([id number]) IMPRESSION: 1. No acute intracranial abnormalities. 2. Nonacute bilateral caudate nuclei lacunar infarcts as before. Dictated by: Barron Sheridan M.D. on 02/24/2017 at 17:46 Approved by: Barron Sheridan M.D. on 02/24/2017 at 17:50 PROCEDURE: US BILATERAL DUPLEX DOPPLER IMAGING OF THE CAROTIDS ([id number]) IMPRESSION: 1. Less than 50% bilateral internal carotid artery stenosis. 2. Antegrade vertebral artery flow bilaterally. Dictated by: Rosette Espinoza M.D. on 02/25/2017 at 10:38 Approved by: Rosette Espinoza M.D. 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 CKD is likely secondary to poorly controlled chronic diabetes and hypertension given this patient's reported aversion to seek medical therapies. Hospital Day 2 Plan: 1. Acute blood loss anemia, present on admission - Baseline hemoglobin approximately 11-12 - History of positive stool occult blood one month prior after initiating warfarin therapy for left lower extremity DVT - Report the patient is on both full dose aspirin and clopidogrel daily - Hold warfarin, aspirin and clopidogrel - GI has been consulted for likely upper GI bleed given history of chronic full dose aspirin, positive stool cold blood at last admission, increased BUN, report of melena, and significant lower hemoglobin than at baseline, - Barium swallow to be preformed today - Type and cross, transfused 1 unit of packed RBCs (02/26/2017), currently 2 units PRBCs available at blood bank - Hemoglobin is currently improved to 9.8 from 8, continue to monitor 2. Acute kidney injury on chronic kidney disease stage III, present on admission - Recent Oliguria is likely secondary to prerenal azotemia - Patient was started on normal saline at 100 mils per hour, continue at 60mL/hr - Monitor fluid status to avoid volume overload secondary to systolic CHF - Avoid further nephrotoxic insults by consulting pharmacy if there is a question about medications including no NSAIDs, ANDREW inhibitor's, iodine contrast , vancomycin/Zosyn and Bactrim - Hold outpatient diuretics including chlorthalidone and torsemide 3. Chronic systolic congestive heart failure (HFrEF), present on admission - Patient appeared to be notably dehydrated at admission given low skin turgor sure, oliguric (470ml out yesterday), with significant new anemia - Patient was started on normal saline at 100 mils per hour, continue at 60mL/hr - 1 unit of packed RBCs given 02/26/17 - Monitor for signs of fluid overload including peripheral edema, JVD, mucus membranes - May restart carvedilol when patient becomes normotensive if heart rate allows current HR is likely too low 4. Left lower extremity deep vein thrombosis, present on admission, chronic - Hold warfarin therapy given supratherapeutic INR at admission - Hold warfarin therapy given new anemia, elevated BUN, reports of melena CONSISTENT with likely upper GI bleed - Once cleared by gastroenterology consider starting anticoagulation like Dabigatran for ease of dosing and the added benefit of reversibility 5. Encephalopathy, present on admission, acute - New onset lethargy likely explained due to severe anemia and dehydration - CT scan of the head was negative for any signs of new recent stroke - Neuro exam showed significant delay but patient was entirely appropriate without focal neurologic deficits - Monitor and avoid WHARF OPERATOR depressant drugs 6. Dysphasia, present on admission, acute - Speech therapies following with current recommendations including initiating puree/DM solids with nectar thick liquids. Pt will require 1:1 supervision for all meals. - Gastroenterology consulted for possible upper endoscopy given likely upper GI bleed, likely advance diet - barium swallow today 7. Gastroesophageal reflux disease, present on admission, chronic - Initiate Protonix 40 mg twice a day - GI following - Possible EGD, consider H Pylori at biopsy 8. chronic Diabetes mellitus type II, present on admission - Patient normally is able to control his blood glucose with diet and exercise reportedly eating an organic diet - Low Correction scale lispro 9. Chronic coronary artery disease, present on admission - EKG is ordered when necessary - hold aspirin, clopidogrel, atorvastatin given likely GI bleed - May consider restarting Isosorbide Mononitrate when patient's blood pressure improved 10. Chronic hypertension, present on admission - Hold blood pressure medications including carvedilol, hydralazine, and chlorthalidone given hypotension at admission - May restart blood pressure medications this patient returns normotensive to hypertensive - Likely restart carvedilol first if heart rate allows current HR is likely too low Nephrology service will continue to follow this patient thank you for this most interesting consult. Marisel Newman MD 02/28/17 1015: Exam Lab and Diagnostics Result Diagram: 02/27/17 0445 02/27/17 0445 Robert Powell DO Feb 27, 2017 14:59 Marisel Newman MD Feb 28, 2017 10:15
--- NOTE | 2017-02-27 15:04 | NUR ---
OC signed ELEAZAR Hernandez
--- NOTE | 2017-02-27 15:05 | NUR ---
Social Work Note: Continued Discharge Planning Data& Assessment: Per MD pt is not medically ready for discharge at this time. SW met with pt and pt at bedside to check in and assess for any unmet needs. Pt and pt deny any other needs at this time. Pt will be undergoing a barium swallow. SW to continue to follow. Plan: Anticipated discharge home with kamila MALLOY PT, RN and ST when medically ready. SW to continue to follow. ELEAZAR Hernandez
--- NOTE | 2017-02-27 16:12 | DRSVH ---
PROCEDURE: X-RAY BARIUM SWALLOW ESOPHAGUS ([id number]) INDICATIONS: DYSPHAGIC COMPARISON: None. FINDINGS: Limited, modified exam as patient is unable to fully cooperate. Initially, patient was then left late ral decubitus position that would not swallow any barium. Patient was then placed in an adjustable ch air and lateral images of the esophagus were obtained sitting up. Patient did swallow thin and thick barium without aspiration. The amount of barium swallowed was not sufficient to distend the intrathor acic esophagus so patient was given thick area and paste by spoon. This initially lodged in the upper thoracic esophagus but then progressed through the distal esophagus and into the stomach with swallo ws of water. Again no aspiration occurred. IMPRESSION: Very limited exam showing no evidence of laryngeal penetration or aspiration with thin th rough thick barium products. Deglutition and initial peristalsis appeared adequate. There is no high- grade obstruction in the mid or distal esophagus. Dictated by: Ed Catalan M.D. on 02/27/2017 at 16:06 Approved by: Ed Catalan M.D. on 02/27/2017 at 16:11
--- NOTE | 2017-02-27 16:46 | NUR ---
spiritual care: follow up coversational visit with caring manager data warehouse [employer]. pt's reflected on pt's improvement, and weariness. prayer at bedside.
[2017-02-28] VITALS (9 sets, daily range): BP systolic 96–108; BP diastolic 60–65; PULSE 56–64; RESP 18–24; O2SAT 94–98
--- NOTE | 2017-02-28 00:19 | PROG NOTE ---
[address] [address] PROGRESS NOTE PATIENT: ALISA TERRAZAS : 1935 MR#: [id number] ADMIT: 02/24/2017 JOB ID: [id number] DATE: 02/27/2017 SUBJECTIVE: The patient had a barium swallow accomplished which was considered a very limited exam showing no evidence of laryngeal penetration or aspiration with thin through thick barium products. Deglutition and initial peristalsis appeared adequate. There was no high-grade obstruction in the mid or distal esophagus noted. The patient's was at the bedside and indicates he has been able to manage the full liquid diet. OBJECTIVE: He again is sleeping comfortably in the bed. Vital signs this afternoon revealed a temperature of 36.0, pulse 65, breathing 22, blood pressure 113/71, and 92% on room air. LABORATORIES: Hemoglobin this morning was 9.8, hematocrit 28.9, white count was 7.1, platelets are up to 104. INR is down to 1.25. His creatinine is 2.44, BUN is 151, sodium 134, potassium 4.2, chloride 95, bicarb 19, glucose 137. Liver tests normal. Albumin still low. ASSESSMENT AND PLAN: This is an 82-year-old male with multiple recently diagnosed medical comorbidities in acute on chronic renal failure, profoundly uremic. INR has in essence near normalized. There is no evidence of any active ongoing hemorrhage. His BUN is slowly coming down. He has been given 1 unit of blood and his hemoglobin appropriately elevated. His barium does not indicate a high-grade obstruction; and therefore, I have taken the liberty of advancing him to a dysphagia diabetic diet. He remains on intervally dosed Protonix. In speaking with the patient's , it is still her request that we do not pursue an invasive procedure like endoscopy at this time. Will continue to follow and see how he gets on, ideally with improved renal function, and hopefully mental status, alertness, along with hopefully improved swallowing.
[2017-02-28 03:48] LABS: Mean Corpuscular Hemoglobin 28.9 pg (27.0-35.0); Mean Corpuscular Volume 87.9 fL (81-100)
[2017-02-28 04:14] LABS: BASOPHILS % (AUTO) 0 % (0-3); EOSINOPHILS % (AUTO) 0 % (0-5); MONOCYTES % (AUTO) 4 % (4-12); NEUTROPHILS % (AUTO) 77 % (40-74); Platelet Count 95 bil/L (150-400)
--- NOTE | 2017-02-28 05:38 | NUR ---
Neuro: The pt has remained stable throughout the night. Neurologically, the pt has remained stable without and changes noted. Pt does not answer when asked about time, however, the pt states that the current U.[place]. president is: "Jorge L." remains at the bedside. Pt has remained appropriate through the night.
[2017-02-28] MEDS: Pantoprazole 4 mg/mL 10 mL Inj IVPUSH SCH ×2 (08:10→21:04)
--- NOTE | 2017-02-28 08:38 | PCM.PNNEPH ---
Subjective Date of Service Feb 28, 2017 Subjective The patient continues to remain fairly quiet with the answering most of the questions. The patient does respond appropriately when directly addressed questions. The patient has been able to eat breakfast without issue. The states that his mentation has improved since being given blood. The is on the understanding that the gastroenterology service will not be doing an EGD today. Exam Vital Signs Vital Sign - Last Date Time Temp Pulse Resp B/P Pulse Ox O2 Delivery O2 Flow Rate FiO2 02/28/17 08:01 35.6 60 20 101/65 94 Room Air 02/27/17 20:52 1.00 Intake and Output 02/27/17 02/27/17 02/28/17 Cumulative From/Thru 15:00 23:00 07:00 02/24/17 16:17 - 02/28/17 06:19 Intake Total 515 ml 220 ml 1057 ml 3101 ml Output Total 600 ml 500 ml 3410 ml Balance 515 ml -380 ml 557 ml -309 ml Intake Oral 220 ml 250 ml 770 ml IV Total 515 ml 807 ml 2331 ml Output Urine Total 600 ml 500 ml 3410 ml # Bowel Movements 1 Exam Gen.: Elderly male lying in bed in no acute distress eating breakfast appearing approximately stated age Eyes: Pupils equal round and reactive to light, extraocular motion intact, anicteric sclera, notable conjunctival edema HENT: Normocephalic atraumatic, moist mucous membranes, no central cyanosis, oropharynx clear Neck: Supple, trachea midline, no noted JVD or lymphadenopathy Cardiovascular: Regular rate and rhythm no murmurs rubs or gallops noted Lungs: Mild coarse breath sounds in the inferior axillary lower lung parsons on the left more than right, no bronchial or wheezing noted Abdomen: Normoactive bowel sounds, soft, nontender, no organomegaly, tympanic to percussion : Espino in place, urine color is improving is light yellow Extremities: Pulses intact bilaterally at the radial and dorsalis pedis, no edema cyanosis or clubbing noted, significant ecchymosis on entirety of left forearm which is improving from day prior Skin: Warm and dry, large 13 cm cystic structure at pacemaker insertion site without signs of fluctuance or overlying erythema without nontender on palpation , healing left flank hematoma, mild venous stasis changes in the right lower extremity around the lower tibia with mild darkening and induration, mild excoriations noted in shins bilaterally, notable decreased skin turgor consistent with dehydration Neuro: No focal neurologic deficits compared to day prior, can move all extremities MSK: no swollen or painful joints Psych: Flat affect moderately depressed mood, answers questions appropriately with a delayed response time Lab and Diagnostics Result Diagram: 02/28/1733402/28/17334 X-Rays, CTs and MRIs PROCEDURE: X-RAY CHEST ONE VIEW, PORTABLE ([id number]) IMPRESSION: Small bibasilar pleural effusions, with increased bibasilar compressive atelectasis versus evolving bronchopneumonia. Dictated by: Barron Sheridan M.D. on 02/24/2017 at 17:50 Approved by: Barron Shreidan M.D. on 02/24/2017 at 17:52 PROCEDURE: CT BRAIN WITHOUT CONTRAST ([id number]) IMPRESSION: 1. No acute intracranial abnormalities. 2. Nonacute bilateral caudate nuclei lacunar infarcts as before. Dictated by: Barron Sheridan M.D. on 02/24/2017 at 17:46 Approved by: Barron Sheridan M.D. on 02/24/2017 at 17:50 PROCEDURE: US BILATERAL DUPLEX DOPPLER IMAGING OF THE CAROTIDS ([id number]) IMPRESSION: 1. Less than 50% bilateral internal carotid artery stenosis. 2. Antegrade vertebral artery flow bilaterally. Dictated by: Rosette Espinoza M.D. on 02/25/2017 at 10:38 Approved by: Rosette Espinoza M.D. on 02/25/2017 at 10:39 Cardiac Echo Impressions Echocardiogram Report Interpretation Summary The left ventricle is mildly dilated. The ejection fraction is estimated to be 25-30%. There is severe hypokinesis of the mid and distal septum, and akinesis of the septum and posterior wall. The anterior wall is hypokinetic and in apical inferior wall is akinetic. The right ventricle is mildly dilated. There is severe biatrial enlargement. There is moderate to severe mitral regurgitation. The aortic valve is mildly calcified. There is moderate tricuspid regurgitation. The right ventricular systolic pressure is estimated at 75 mmHg assuming a right atrial pressure of 15 mm Hg. Electronically signed by: Luis Cornell on Reading Physician:02/27/2017 03:08 PM Additional Diagnostics X-RAY BARIUM SWALLOW ESOPHAGUS IMPRESSION: Very limited exam showing no evidence of laryngeal penetration or aspiration with thin through thick barium products. Deglutition and initial peristalsis appeared adequate. There is no high-grade obstruction in the mid or distal esophagus. Dictated by: Ed Catalan M.D. on 02/27/2017 at 16:06 Approved by: Ed Catalan M.D. 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 CKD is likely secondary to poorly controlled chronic diabetes and hypertension given this patient's reported aversion to seek medical therapies. 1. Acute blood loss anemia, present on admission 2. Acute kidney injury on chronic kidney disease stage III, present on admission 3. Chronic systolic congestive heart failure (HFrEF), present on admission 4. Left lower extremity deep vein thrombosis, present on admission, chronic 5. Encephalopathy, present on admission, acute 6. Dysphasia, present on admission, acute 7. Gastroesophageal reflux disease, present on admission, chronic 8. chronic Diabetes mellitus type II, present on admission 9. Chronic coronary artery disease, present on admission 10. Chronic hypertension, present on admission Plan: 1. Acute blood loss anemia, present on admission - Baseline hemoglobin approximately 11-12 - History of positive stool occult blood one month prior after initiating warfarin therapy for left lower extremity DVT - Report the patient is on both full dose aspirin and clopidogrel daily - Hold warfarin, aspirin and clopidogrel - GI has been consulted for likely upper GI bleed given history of chronic full dose aspirin, positive stool cold blood at last admission, increased BUN, report of melena, and significant lower hemoglobin than at baseline, - Barium swallow was rather unremarkable - Type and cross, transfused 1 unit of packed RBCs (02/26/2017), currently 2 units PRBCs available at blood bank - Hemoglobin is currently stable continue to monitor - The acute blood loss could be secondary to supratherapeutic INR on warfarin the patient and his will likely need significant education on maintaining a steady diet. The patient's reportedly prepares Mediterranean diet like all organic meals from scratch. The patient probably has a significant variation in his vitamin K intake as he likely ingests leafy green salads some days and eats almost nothing possibly on other days. - The primary team will consult palliative care during his patient's list of comorbidities including DVT and likely GI bleed 2. Acute kidney injury on chronic kidney disease stage III, present on admission - baseline Creatinine is likely less than or near 2 but is difficult to assess given presentation in December with Cr 1.7 - Recent Oliguria is likely secondary to prerenal azotemia - Patient was started on normal saline at 100 mils per hour, continue at 60mL/hr - Monitor fluid status to avoid volume overload secondary to systolic CHF - Avoid further nephrotoxic insults by consulting pharmacy if there is a question about medications including no NSAIDs, ANDREW inhibitor's, iodine contrast , vancomycin/Zosyn and Bactrim - Hold outpatient diuretics including chlorthalidone and torsemide - hold warfarin until SHMUEL resolves 3. Chronic systolic congestive heart failure (HFrEF), present on admission - Patient appeared to be notably dehydrated at admission given low skin turgor sure, oliguric (470ml out yesterday), with significant new anemia - Patient was started on normal saline at 100 mils per hour, continue at 60mL/hr - 1 unit of packed RBCs given 02/26/17 - Monitor for signs of fluid overload including peripheral edema, JVD, mucus membranes - Restart carvedilol when patient becomes normotensive if heart rate allows current HR is likely too low 4. Left lower extremity deep vein thrombosis, present on admission, chronic - Hold warfarin therapy given supratherapeutic INR at admission - Hold warfarin therapy given new anemia, elevated BUN, reports of melena CONSISTENT with likely upper GI bleed - Once cleared by gastroenterology may consider restarting anticoagulation likely Warfarin under Pharmacy - recommendations given CKD, unfortunately dabigitran has not been studied with CKD and is contraindicated with GFR less than 30 in [place] - Palliative care consulted given patient's need for anticoagulation and contraindications given likely GI bleed 5. Encephalopathy, present on admission, acute - New onset lethargy likely explained due to severe anemia and dehydration - CT scan of the head was negative for any signs of new recent stroke - Neuro exam showed significant delay but patient was entirely appropriate without focal neurologic deficits - Monitor and avoid [employer] depressant drugs 6. Dysphasia, present on admission, acute - Speech therapies following with current recommendations including initiating puree/DM solids with nectar thick liquids. Pt will require 1:1 supervision for all meals. - Gastroenterology consulted reportedly will not perform an EGD advance diet - barium swallow was fairly unremarkable 7. Gastroesophageal reflux disease, present on admission, chronic - Initiate Protonix 40 mg twice a day - GI following 8. chronic Diabetes mellitus type II, present on admission - Patient normally is able to control his blood glucose with diet and exercise reportedly eating an organic diet - Low Correction scale lispro 9. Chronic coronary artery disease, present on admission - EKG is ordered when necessary - hold aspirin, clopidogrel, atorvastatin given likely GI bleed - May consider restarting Isosorbide Mononitrate when patient's blood pressure improved 10. Chronic hypertension, present on admission - Hold blood pressure medications including hydralazine and chlorthalidone given hypotension at admission - May restart blood pressure medications once this patient returns normotensive to hypertensive - Primary team restarted carvedilol - Monitor Nephrology service will continue to follow this patient thank you for this most interesting consult. Robert Powell DO Feb 28, 2017 08:38
--- NOTE | 2017-02-28 09:08 | DRSVH ---
[facility] [address] [place] [address] Echocardiogram Report Name: ALISA TERRAZAS Study Date: 02/26/2017 Height: 71 in Hospital Exam Location: [facility] Weight: 172 lb Gender: Male BSA: 2.0 m2 : 1935 Age: 82 yrs BP: 96/54 mmHg Reason For Study: CHF Ordering Physician: HOSPITALIST [facility] Performed By: Jabier Tolentino Referring Physician: MD Sherita Garvin Interpretation Summary The left ventricle is mildly dilated. The ejection fraction is estimated to be 25-30%. There is severe hypokinesis of the mid and distal septum, and akinesis of the septum and posterior wall. The anterior wall is hypokinetic and in apical inferior wall is akinetic. The right ventricle is mildly dilated. There is severe biatrial enlargement. There is moderate to severe mitral regurgitation. The aortic valve is mildly calcified. There is moderate tricuspid regurgitation. The right ventricular systolic pressure is estimated at 75 mmHg assuming a right atrial pressure of 15 mm Hg. Procedure: A limited 2D, color and Doppler echocardiogram was performed to assess for CHF. The study quality was technically adequate. Comparison is made with the echocardiogram of 01/10/17. The patient has a paced rhythm. Left Ventricle: There is normal left ventricular wall thickness. The left ventricle is mildly dilated. There is no thrombus. The ejection fraction is estimated to be 25-30%. There is severe hypokinesis of the mid and distal septum, and akinesis of the septum and posterior wall. The anterior wall is hypokinetic and in apical inferior wall is akinetic. Right Ventricle: The right ventricle is mildly dilated. Right ventricular systolic function is borderline reduced. Atria: There is severe biatrial enlargement. Mitral Valve: The mitral valve chordae are thickened and/or calcified. There is moderate to severe mitral regurgitation. Aortic Valve: The aortic valve is trileaflet. The aortic valve is mildly calcified. The aortic valve opens well. No aortic regurgitation is present. Tricuspid Valve: The tricuspid valve is normal in structure and function. There is moderate tricuspid regurgitation. The right ventricular systolic pressure is estimated at 75 mmHg assuming a right atrial pressure of 15 mm Hg. Compared to the prior echo exam, there has been a decrease in the severity of pulmonary hypertension. Great Vessels: The aortic root is normal size. The ascending aorta is mildly enlarged. The pulmonary artery is normal size. The IVC is dilated (diameter is greater than 2.1 cm) and it collapses less than 50% with a sniff. This suggests a high right atrial pressure of 15 mm Hg. Pericardium/ Pleura There is no pericardial effusion. There is a moderately large right-sided pleural effusion. There is a moderate left-sided pleural effusion. MMode/2D Measurements & Calculations LVIDd: 6.1 cm RA long axis: 5.0 cm asc Aorta LVIDs: 5.1 cm LA A2 area: 24.1 cm Diam: 3.7 cm FS: 15.8 % LA A4 area: 23.4 cm RA area: 25.1 cm IVSd: 0.90 cm LA length (vol): 5.0 cm RA vol: 108.4 ml LVPWd: 0.92 cm LA vol: 95.8 ml RA : 54.8 ml/m2 LA vol index IVC diam: 2.7 cm EDV(MOD-sp2) LV braga. diameter/BSA LV sys. diameter/BSA RVD1 (basal) : 209.1 ml (cm/m^2): 3.1 (cm/m^2): 2.6 : 4.4 cm RVD2 (mid) : 4.9 cm Doppler Measurements & Calculations MV E max simeon MV E/A: 1.5 TR max simeon MV dec time : 79.9 cm/sec Med Peak E' Simeon : 385.6 cm/sec : 0.18 sec MV A max simeon TR max PG : 53.8 cm/sec E/E' med: 24.5 : 59.5 mmHg MV A dur: 0.13 sec [facility] radius : 0.57 cm Electronically signed by: Luis giron Assawoman Physician:02/27/2017 03:08 PM
[2017-02-28] MEDS: 0.9% Sodium Chloride 250 ML IV SCH (12:05)
--- NOTE | 2017-02-28 12:25 | NUR ---
Palliative Care Palliative Care received verbal order from Dr Robles 02/28/17 to assist with goals of care. Patient is an 82 year old man with systolic CHF, pulmonary HTN and recent LLE DVT. He was admitted 02/24/17 for care of AMS. Patient lives home with . Katty Walsh () [phone] Vanessa (daughter) [phone] Palliative Care to follow. Kami Harper
[2017-02-28] MEDS: 0.9% Sodium Chloride 1,000 ML IV SCH (12:29)
--- NOTE | 2017-02-28 12:56 | PCM.PNMED ---
Subjective Date of Service Feb 28, 2017 Subjective Patient is doing better today. He is awake and he is enjoying his breakfast. The night was uneventful. he continues to be weak but he is finally showing some improvement in his mental status.He is still not ambulating and has a Espino catheter. Exam Vital Signs Vital Sign - Last Date Time Temp Pulse Resp B/P Pulse Ox O2 Delivery O2 Flow Rate FiO2 02/28/17 12:37 35.6 56 20 96/61 95 Room Air 02/27/17 20:52 1.00 Intake and Output 02/27/17 02/27/17 02/28/17 Cumulative From/Thru 15:00 23:00 07:00 02/24/17 16:17 - 02/28/17 06:19 Intake Total 515 ml 220 ml 1057 ml 3101 ml Output Total 600 ml 500 ml 3410 ml Balance 515 ml -380 ml 557 ml -309 ml Intake Oral 220 ml 250 ml 770 ml IV Total 515 ml 807 ml 2331 ml Output Urine Total 600 ml 500 ml 3410 ml # Bowel Movements 1 Exam Gen.: Elderly pale and weak looking male siting today in bed in no acute distress HEENT: NCAT, dry mucous membranes Cardiovascular: Regular rate and rhythm no murmurs rubs or gallops noted Lungs: Mild coarse breath sounds, posterior lower lung parsons Abdomen: Normoactive bowel sounds, soft and nontender : Espino in place, urine is dark yellow Extremities: Pulses intact bilaterally, no edema, cyanosis, clubbing Skin: Notable decreased skin turgor IVs and Medications IV Fluids Normal saline intravenous at 60 ml/hr Lab and Diagnostics Result Diagram: 02/28/17 0335 02/28/17 0335 X-Rays, CTs and MRIs PROCEDURE: X-RAY CHEST ONE VIEW, PORTABLE ([id number]) IMPRESSION: Small bibasilar pleural effusions, with increased bibasilar compressive atelectasis versus evolving bronchopneumonia. Dictated by: Barron Sheridan M.D. on 02/24/2017 at 17:50 Approved by: Barron Sheridan M.D. on 02/24/2017 at 17:52 PROCEDURE: CT BRAIN WITHOUT CONTRAST ([id number]) IMPRESSION: 1. No acute intracranial abnormalities. 2. Nonacute bilateral caudate nuclei lacunar infarcts as before. Dictated by: Barron Sheridan M.D. on 02/24/2017 at 17:46 Approved by: Barron Sheridan M.D. on 02/24/2017 at 17:50 PROCEDURE: US BILATERAL DUPLEX DOPPLER IMAGING OF THE CAROTIDS ([id number]) IMPRESSION: 1. Less than 50% bilateral internal carotid artery stenosis. 2. Antegrade vertebral artery flow bilaterally. Dictated by: Rosette Espinoza M.D. on 02/25/2017 at 10:38 Approved by: Rosette Espinoza M.D. on 02/25/2017 at 10:39 Cardiac Echo Impressions Echocardiogram Report The left ventricle is mildly dilated. The ejection fraction is estimated to be 25-30%. There is severe hypokinesis of the mid and distal septum, and akinesis of the septum and posterior wall. The anterior wall is hypokinetic and in apical inferior wall is akinetic. The right ventricle is mildly dilated. There is severe biatrial enlargement. There is moderate to severe mitral regurgitation. The aortic valve is mildly calcified. There is moderate tricuspid regurgitation. The right ventricular systolic pressure is estimated at 75 mmHg assuming a right atrial pressure of 15 mm Hg. Electronically signed by: Luis Cornell on Reading Physician:02/27/2017 03:08 PM Additional Diagnostics X-RAY BARIUM SWALLOW ESOPHAGUS IMPRESSION: Very limited exam showing no evidence of laryngeal penetration or aspiration with thin through thick barium products. Deglutition and initial peristalsis appeared adequate. There is no high-grade obstruction in the mid or distal esophagus. Dictated and approved by Ed Cataaln M.D. 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 Hospital day 5. 1. Acute blood loss anemia and GI bleed most likely secondary to supratherapeutic INR, present on admission. Active -Improved hemoglobin and hematocrit status post 1 unit of packed RBCs transfusion -History of positive stool occult blood one month prior after initiating warfarin therapy for left lower extremity DVT -Patient is on both full dose aspirin and clopidogrel daily as well as warfarin. Will hold these for now -Gastroenterology has been consulted for likely upper intestinal bleed given history of chronic full dose aspirin, positive stool cold blood at last admission, increased BUN, report of melena, and significant lower hemoglobin than at baseline -Barium esophagram performed on 03/16/[address] Soares due to concern about a neoplasm in the distal esophagus. Barium esophagram did not indicate a high- grade obstruction -Advance to a dysphagia diabetic diet -Continue Protonix drip and monitor labs 2. Acute on chronic kidney injury, present on admission. Active - Most likely d/t prerenal azotemia - Creatinine and BUN improving - Nephrology consulted, we appreciated their input - Continue normal saline intravenously at 60 ml/hr and monitor fluid status to avoid volume overload secondary to systolic CHF - Avoid nephrotoxic agents - Discontinue Espino catheter - Continue to hold outpatient diuretics including chlorthalidone and torsemide 3. Chronic systolic congestive heart failure, present on admission, active - Ejection fraction of 35-40% from echo done on 01/10/2017 with severe pulmonary hypertension - Recent echo preformed on 02/26/2017 revealed worsening cardiac function with ejection fraction of 25-30%, severe hypokinesis of the mid and distal septum, and akinesis of the septum and posterior wall, severe biatrial enlargement, moderate to severe mitral regurgitation, mildly calcified aortic valve and moderate tricuspid regurgitation - Due to the fact that the patient's is against any additional procedures, cardiology has not been consulted - We will have physical evaluation today in preparation for patient's discharge home within the next day or two 4. Hypotension, present on admission, improved -Blood pressure is within normal limits today -Continue to hold all diuresis and all blood pressure medications 5. Possible TIA, present on admission, improving -CT scan negative, patient's declines MRI even though patient has MRI compatible pacemaker -Ultrasound of the carotids: Less than 50% bilateral internal carotid artery stenosis. Antegrade vertebral artery flow bilaterally -Continue to monitor 6. Hematoma around pacemaker, chronic, stable -Cardiology has examined and states that this is actually improved from the patient's baseline no further treatment needed just continue to monitor 7. Elevated troponins of uncertain significance, present on admission, active -Most likely stress-induced -Troponins 0.104-->0.100-->0.115 -Cardiology following pacemaker has been interrogated and is working appropriately 8. Recent history of left lower extremity DVT (01/09/17), currently stable -Hold all anticoagulation as patient is currently supratherapeutic and currently bleeding DVT prophylaxis: -hold all medical anticoagulation at this time as patient is supratherapeutic and has a GI bleed Code Status: DNI, but yes to resuscitation including CPR, IV fluids, and medications Pain Evaluation: Adequate Pain Control GI Prophylaxis: Proton Pump Inhibitor VTE Prophylaxis: Other (Holding warfarin due to suspected gastrointestinal bleeding) VTE Mechanical Devices: Intermittant Pneumatic CD Resuscitation Status: Limited Interventions Limited Interventions: Compressions, Cardioversion/Defibrillation, BiPAP, Medications and IV Fluid Attending Statement The patient was seen and examined together with Dr. Thompson on 02/28/2017 and I agree with the history, exam and plan as outlined in the note above. . Kathleen Thompson DO Feb 28, 2017 12:56 Milad Tucker MD Mar 03, 2017 17:52
--- NOTE | 2017-02-28 17:52 | NUR ---
Skin Pt has Mepilex to sacral area. Pt has open skin to sacral area. Mepilex is big enough to cover it. Pt able to shift weight in bed. 1-2PA with gait belt to edge of bed. Pls see PT note for details. Pt front groin area, bilateral inner thighs red, yeasty. Nystatin cream applied. Will apply both Nystatin and Calmoseptime mixed next brief change. Pt had Espino removed at noon today and has since been incontinent. Care ongoing.
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
--- NOTE | 2017-02-28 19:36 | NUR ---
Coreg Withheld Coreg this afternoon due to pts low BP's. In speaking with night nurse. Pt has been ranging in the high 90's-low 100 range systolic and he has a pacemaker. I will undo the Coreg I withheld this afternoon since it's BID and won't be late night RN will be administering the 6.25mg of Coreg.
--- NOTE | 2017-02-28 23:00 | PROG NOTE ---
[address] [address] PROGRESS NOTE PATIENT: ALISA TERRAZAS : 1935 MR#: [id number] ADMIT: 02/24/2017 JOB ID: [id number] DATE: 02/28/2017 SUBJECTIVE: The patient has been doing okay with diet, according to his . No further signs of bleeding. His H and H is stable. We discussed the prospect of an upper endoscopy once again. The patient's seemed to be a little concerned that this could perhaps exacerbate some sort of swallowing difficulty. I explained to her that if there was going to be any kind of complication, it would be more likely to be related to his other cardiopulmonary comorbidities than anything else. At any rate, he seems to be doing well and has become a little bit more talkative and alert today. His BUN has fallen. Creatinine has also improved slightly. OBJECTIVE: Vital signs stable. Patient eyes are open. He was attempting to follow the conversation in the room and attempting to answer appropriately which was quite an improvement over the last 48 hours from my perspective. LABORATORIES: BUN is still elevated but down to 139, creatinine is down at 2.36, hemoglobin 9.8, white count normal, platelets 95. INR yesterday was 1.25. ASSESSMENT AND RECOMMENDATIONS: This is an 82-year-old male with a number of medical comorbidities with altered mental status found to be anemic and uremic. There is no further evidence of any ongoing bleeding. He seems to be clinically improving with a falling BUN. I would recommend continuing his diet as ordered at present and perhaps revisiting the barium swallow and even maybe a full upper GI series in the next 24-48 hours when the patient's ability to participate in the exam and follow instructions would be predictably quite a bit improved from where he was at on February 27 (limiting the exam quite considerably). If there was anything found at the upper GI series or barium swallow concerning for malignancy, we could then discussed proceeding with further more invasive diagnostics at that time.
[2017-03-01] VITALS (10 sets, daily range): BP systolic 90–109; BP diastolic 56–68; PULSE 55–66; RESP 18–20; O2SAT 93–98
[2017-03-01 04:00] LABS: BASOPHILS % (AUTO) 0.2 % (0-3); EOSINOPHILS % (AUTO) 0.7 % (0-5); MONOCYTES % (AUTO) 14.5 % (4-12); Mean Corpuscular Hemoglobin 28.9 pg (27.0-35.0); Mean Corpuscular Volume 89.1 fL (81-100); NEUTROPHILS % (AUTO) 64.1 % (40-74)
[2017-03-01 04:16] LABS: Platelet Count 86 bil/L (150-400)
--- NOTE | 2017-03-01 05:06 | NUR ---
Transferring Pt unsteady on his feet. 2PA to BSC. Pt able to follow commands but drowsy. Pt to use urinal instead for rest of shift for safety.
[2017-03-01] MEDS: 0.9% Sodium Chloride 1,000 ML IV SCH ×2 (05:09→20:27)
[2017-03-01] MEDS: Pantoprazole 4 mg/mL 10 mL Inj IVPUSH SCH ×2 (09:13→20:18)
--- NOTE | 2017-03-01 10:04 | NUR ---
Blood pressure meds Discussed condition of patient blood pressure and meds ordered. Withholding Coreg at this time. Obtain orthostatic blood pressure. Continuing to monitor.
[2017-03-01] MEDS: 0.9% Sodium Chloride 250 ML IV SCH (11:25)
--- NOTE | 2017-03-01 13:51 | PCM.PALLBR ---
Palliative Care Recommendation 82-year-old patient admitted with supratherapeutic INR and associated probable GI bleed with acute anemia, acute on chronic renal failure and altered mental status. Palliative medicine consulted to assist patient and family and determination of goals of care. At this time, patient and his are very firmly fixed on their wishes (see below). Therefore, palliative medicine will sign off at this time- please contact us if we may be of further assistance. Note that a POLST was completed for him, but his (after agreeing to each portion of the document) refused to sign it for now. The unsigned document is in his paper chart. Summary of palliative recommendations: -Symptom management (Pain/other) AMS-unclear as to specific cause unless relates to CVAs or uremia; likely multifactorial with acute on chronic components. Still significant AMS compared to baseline 2 months ago per patient's . CRI with uremia-may certainly be contributing to weakness Ischemic cardiomyopathy-unclear if symptomatic although there was mention of CP on admit. Goals of care- patient's speaks for him. She expects aggressive care and management until it is defined that there is nothing to be done and then to have him at home to . She states this is his stated goal as well. Unclear if she will be willing to involve hospice even at that point, though. -DPOA/Advanced Directives/POLST- His states advanced directive completed but no copy in chart or in NextGen. Per patient's , he is a candidate for aggressive resuscitation including CPR/defibrillation but is NOT to be intubated . Return to hospital/IV fluids/medications including antibiotics are all approved, but she is ambivalent about artificial nutrition. Today, I reviewed all the above again with his and worked on a POLST form with her. After completing it, however, she refused to sign it, saying that she wanted to think about it some more. I left it in the front pocket of the chart and will review it with her briefly again on 03/02. -Family/emotional support- I believe they could use more support going forward. She states she is willing to consider this. Advised she ask CM/SS here or with HH to assist in this regard. -Spiritual support- She states they are adequately supported and is not interested in anything further. Additional Medical Diagnoses with primary management by Hospitalist team include : 1. Acute blood loss anemia and GI bleed most likely secondary to supratherapeutic INR, present on admission. Active 2. Acute on chronic kidney injury, present on admission. Active 3. Chronic systolic congestive heart failure, present on admission, active 4. Hypotension, present on admission, improved 5. Possible TIA, present on admission, improving 6. Hematoma around pacemaker, chronic, stable 7. Elevated troponins of uncertain significance, present on admission, active 8. Recent history of left lower extremity DVT (01/09/17), currently stable Problems: End of Life Preferences Home to if no other intervention indicated or helpful, though for now he continues to be full resuscitation with the exception of intubation Disposition Home with HH Resuscitation Status Resuscitation Status: Limited Interventions Limited Interventions: Compressions, Cardioversion/Defibrillation, BiPAP, Medications and IV Fluid POLST Updates/Changes Previous POLST?: No POLST Review Outcome: New Form Completed (but remains unsigned) . Advanced Care Planning Address: POLST Pain: None Symptom management: Dyspnea, Delirium Total time 60 minutes; >50% face to face with patient his , providing counselling regarding plans and recommendations, and in care coordination with his medical teams. Of the above total time, 30 minutes counseling for advanced care planning with the patient and his , reviewing their wishes and assisting in documenting these on a POLST copies to: Valencia Jamison DO Palliative Brief Note Date of Service Mar 01, 2017 . Returned to reevaluate patient. Prior to visiting, reviewed his updated records in the EMR in detail, had spoke with his bedside nurse. Also received signout from his previous palliative caregiver. On my arrival, patient is sitting up in chair finishing breakfast. His , uses a walker, is at his side. I introduced myself and we chatted. His had a number of questions about his blood counts, his chemistry tests, etc. and I passed along the information to her and answered questions she had. We talked and reviewed Dr. Vega's earlier visit and the patient and her have made no changes to their wishes or plans. His physical exam remained stable and unchanged. As noted, labs were reviewed- hemoglobin slightly improved, white count stable, BUN slightly improved with creatinine slightly worse. Alexis Rivas MD Mar 01, 2017 13:51
--- NOTE | 2017-03-01 15:09 | PCM.PNMED ---
Subjective Date of Service Mar 01, 2017 Subjective Hospital day #6 - Patient is continuing to improve. Currently sitting up in a bedside chair and had solid food chopping into small pieces for breakfast without difficulty chewing or swallowing. His energy level is much higher and he no longer dozes off as often, and his speech is clear although still minimal. His Espino catheter was removed yesterday, and he is going to the bathroom with assistance. Denies dysuria, denies chest pain. Exam Vital Signs Vital Sign - Last Date Time Temp Pulse Resp B/P Pulse Ox O2 Delivery O2 Flow Rate FiO2 03/01/17 11:27 98/59 03/01/17 11:25 35.4 60 20 95 Room Air 03/01/17 03:30 1.00 Intake and Output 02/28/17 02/28/17 03/01/17 Cumulative From/Thru 15:00 23:00 07:00 02/24/17 16:17 - 03/01/17 06:34 Intake Total 1269 ml 1161 ml 5531 ml Output Total 275 ml 3685 ml Balance 1269 ml 886 ml 1846 ml Intake Oral 518 ml 436 ml 1724 ml IV Total 751 ml 725 ml 3807 ml Output Urine Total 275 ml 3685 ml # Voids 1 3 4 # Bowel Movements 2 0 3 Exam General: alert, oriented to person and place. Sitting upright in bedside chair. CV: muffled heart sounds. Respiratory: lungs clear to auscultation bilaterally. Non-labored breathing. No longer on O2 nasal cannula. Extremities: IV line intact. Skin dry, stasis dermatitis still present on arms , unchanged. Scattered scabs still present but healing on arms and legs. No pitting edema. No calf swelling. Neuro: Speech clear and logical. Able to follow cues. Lab and Diagnostics Result Diagram: 03/01/17 0340 03/01/17 0340 X-Rays, CTs and MRIs PROCEDURE: X-RAY CHEST ONE VIEW, PORTABLE ([id number]) IMPRESSION: Small bibasilar pleural effusions, with increased bibasilar compressive atelectasis versus evolving bronchopneumonia. Dictated by: Barron Sheridan M.D. on 02/24/2017 at 17:50 Approved by: Barron Sheridan M.D. on 02/24/2017 at 17:52 PROCEDURE: CT BRAIN WITHOUT CONTRAST ([id number]) IMPRESSION: 1. No acute intracranial abnormalities. 2. Nonacute bilateral caudate nuclei lacunar infarcts as before. Dictated by: Barron Sheridan M.D. on 02/24/2017 at 17:46 Approved by: Barron Sheridan M.D. on 02/24/2017 at 17:50 PROCEDURE: US BILATERAL DUPLEX DOPPLER IMAGING OF THE CAROTIDS ([id number]) IMPRESSION: 1. Less than 50% bilateral internal carotid artery stenosis. 2. Antegrade vertebral artery flow bilaterally. Dictated by: Rosette Espinoza M.D. on 02/25/2017 at 10:38 Approved by: Rosette Espinoza M.D. on 02/25/2017 at 10:39 Cardiac Echo Impressions Echocardiogram Report The left ventricle is mildly dilated. The ejection fraction is estimated to be 25-30%. There is severe hypokinesis of the mid and distal septum, and akinesis of the septum and posterior wall. The anterior wall is hypokinetic and in apical inferior wall is akinetic. The right ventricle is mildly dilated. There is severe biatrial enlargement. There is moderate to severe mitral regurgitation. The aortic valve is mildly calcified. There is moderate tricuspid regurgitation. The right ventricular systolic pressure is estimated at 75 mmHg assuming a right atrial pressure of 15 mm Hg. Electronically signed by: Luis Cornell on Reading Physician:02/27/2017 03:08 PM Additional Diagnostics X-RAY BARIUM SWALLOW ESOPHAGUS IMPRESSION: Very limited exam showing no evidence of laryngeal penetration or aspiration with thin through thick barium products. Deglutition and initial peristalsis appeared adequate. There is no high-grade obstruction in the mid or distal esophagus. Dictated and approved by Ed Catalan M.D. 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 Hospital day 6. 1. Acute blood loss anemia and GI bleed most likely secondary to supratherapeutic INR, present on admission. Active - Hemoglobin and hematocrit continuing to improve. No further red blood cell transfusions have been needed. -History of positive stool occult blood one month prior after initiating warfarin therapy for left lower extremity DVT - Gastroenterology has been consulted for likely upper intestinal bleed given history of chronic full dose aspirin, positive stool cold blood at last admission, increased BUN, report of melena, and significant lower hemoglobin than at baseline -The patient's does not wish for any "invasive" procedures such as an upper endoscopy or a colonoscopy, so a barium swallow study was done by Dr. Soares to evaluate dysphagia. The results were limited due to the patient's decreased level of consciousness at the time. Dr. Soares's progress note () suggested a possible repeat barium swallow to work up a possible obstruction and/or neoplasm. Benefits of a repeat are unclear - finding more pathology would warrant further invasive workup, which is, again, contrary to the patient's plans of care. Still, the patient and his are willing to proceed. Will plan to repeat barium swallow if the patient's cognition and physical stamina improve. -Home anticoagulation meds included warfarin and clopidogrel. Dr. Tucker and Dr. Thompson discussed with the patient's Katty the risks and benefits of continuing anticoagulation in light of his deep venous thrombosis and transient ischemic attack history, contrasted with his increasing risk of falls. His understands, and wishes for him to continue on only clopidogrel and aspirin at home upon discharge. - Continue holding all anticoagulation for now, since source of bleeding unknown. -Continue dysphagia diabetic diet -Continue Protonix drip and monitor labs 2. Acute on chronic kidney injury, present on admission. Active - Most likely d/t prerenal azotemia - Creatinine and BUN improving - Nephrology consulted, we appreciated their input. Per nephrology, continue IV normal saline intravenously at 60 ml/hr. Monitor fluid status to avoid volume overload secondary to systolic CHF - Avoid nephrotoxic agents - Espino catheter removed yesterday. Assistance at all times when ambulating. - Continue to hold outpatient diuretics including chlorthalidone and torsemide 3. Chronic systolic congestive heart failure, present on admission, active - Ejection fraction of 35-40% from echo done on 01/10/2017 with severe pulmonary hypertension - Recent echo preformed on 02/26/2017 revealed worsening cardiac function with ejection fraction of 25-30%, severe hypokinesis of the mid and distal septum, and akinesis of the septum and posterior wall, severe biatrial enlargement, moderate to severe mitral regurgitation, mildly calcified aortic valve and moderate tricuspid regurgitation - Due to the fact that the patient's is against any additional procedures, cardiology has not been consulted - We will have physical evaluation today in preparation for patient's discharge home within the next day or two 4. Hypotension, present on admission, improved -Blood pressure is within normal limits today -Continue to hold all diuresis and all blood pressure medications - Obtain orthostatic vital signs - Continue physical therapy to assess ambulatory safety. 5. Possible TIA, present on admission, improving -CT scan negative, patient's declines MRI even though patient has MRI compatible pacemaker -Ultrasound of the carotids: Less than 50% bilateral internal carotid artery stenosis. Antegrade vertebral artery flow bilaterally -Continue to monitor - Continue speech therapy 6. Hematoma around pacemaker, chronic, stable -Cardiology has examined and states that this is actually improved from the patient's baseline no further treatment needed just continue to monitor 7. Elevated troponins of uncertain significance, present on admission, active -Most likely stress-induced -Troponins 0.104-->0.100-->0.115 -Cardiology following pacemaker has been interrogated and is working appropriately 8. Recent history of left lower extremity DVT (01/09/17), currently stable -Hold all anticoagulation as patient is currently supratherapeutic and currently bleeding DVT prophylaxis: -hold all medical anticoagulation at this time as patient is supratherapeutic and has a GI bleed Code Status: DNI, but yes to resuscitation including CPR, IV fluids, and medications GI Prophylaxis: Proton Pump Inhibitor VTE Prophylaxis: Other (Holding warfarin due to suspected gastrointestinal bleeding) VTE Mechanical Devices: Intermittant Pneumatic CD Resuscitation Status: Limited Interventions Limited Interventions: Compressions, Cardioversion/Defibrillation, BiPAP, Medications and IV Fluid Time spent 35 minutes total KELVIN ROTH MD Mar 01, 2017 15:09 Milad Tucker MD Mar 04, 2017 17:08 Code Status: DNI, but yes to resuscitation including CPR, IV fluids, and medications GI Prophylaxis: Proton Pump Inhibitor VTE Prophylaxis: Other (Holding warfarin due to suspected gastrointestinal bleeding) VTE Mechanical Devices: Intermittant Pneumatic CD Resuscitation Status: Limited Interventions Limited Interventions: Compressions, Cardioversion/Defibrillation, BiPAP, Medications and IV Fluid KELVIN ROTH MD Mar 01, 2017 15:09
--- NOTE | 2017-03-01 16:36 | NUR ---
Social Work: Readiness for Discharge D: Pt discussed in am rounds. Pt is nearing discharge and is anticipated to d/c possibly on Sunday. PT evaluation was completed with pt today with recommendation for SNF/[facility] due to current deficits. Pt is currently living at home with his and is open with [facility] for [facility] MAINFRAME DEVELOPER met with pt and spouse at bedside to discuss discharge planning. PT recommendations were reviewed with pt and spouse. Pt's spouse adamantly declines SNF and states that she wishes to take pt home with [facility]. MAINFRAME DEVELOPER reviewed risks of d/c to home if pt is not safe to do so. Pt's states that she knows and that she is not concerned about pt's fall risk. A: Pt who is currently ambulating 25-50 feet with FWW. P: Anticipate pt to discharge home with [facility] for [facility] MAINFRAME DEVELOPER to continue to follow. ELEAZAR Amador
--- NOTE | 2017-03-01 17:46 | PCM.PNNEPH ---
Subjective Date of Service Mar 01, 2017 Subjective Mr. Walsh is quite lonesome a formal previous hospitalization and follow up in my office several weeks ago. He had considerable prerenal azotemia from passive or GI bleed. With conservative hydration and other measures his BUN and creatinine have continued to improve. This morning he was resting. I discussed the case at length with the patient's . He does have some decreased oral intake most likely due to some mild encephalopathy. Last 24 hours his intake and output were 20 3:25 AM and 500 out. His hemoglobin today is 10.1, sodium 141, potassium 4.1, chloride 104, bicarbonate 21, BUN and creatinine were 125 and 2.43 respectively. Exam Vital Signs Vital Sign - Last Date Time Temp Pulse Resp B/P Pulse Ox O2 Delivery O2 Flow Rate FiO2 03/01/17 16:38 35.4 55 18 99/57 96 Room Air 03/01/17 03:30 1.00 Intake and Output 02/28/17 02/28/17 03/01/17 Cumulative From/Thru 15:00 23:00 07:00 02/24/17 16:17 - 03/01/17 06:34 Intake Total 1269 ml 1161 ml 5531 ml Output Total 275 ml 3685 ml Balance 1269 ml 886 ml 1846 ml Intake Oral 518 ml 436 ml 1724 ml IV Total 751 ml 725 ml 3807 ml Output Urine Total 275 ml 3685 ml # Voids 1 3 4 # Bowel Movements 2 0 3 Exam HEENT examination is remarkable for pale sclera. Neck is supple without adenopathy thyromegaly or jugular venous distention. Lungs showed some scattered rhonchi but otherwise were clear. Heart was irregularly irregular. Abdomen was soft with diminished bowel sounds. There is no tenderness rebound guarding masses or hepatosplenomegaly. Extremities did not reveal evidence of any clubbing cyanosis or edema. Skin turgor was diminished. Lab and Diagnostics Result Diagram: 03/01/17 0340 03/01/17 0340 X-Rays, CTs and MRIs PROCEDURE: X-RAY CHEST ONE VIEW, PORTABLE ([id number]) IMPRESSION: Small bibasilar pleural effusions, with increased bibasilar compressive atelectasis versus evolving bronchopneumonia. Dictated by: Barron Sheridan M.D. on 02/24/2017 at 17:50 Approved by: Barron Sheridan M.D. on 02/24/2017 at 17:52 PROCEDURE: CT BRAIN WITHOUT CONTRAST ([id number]) IMPRESSION: 1. No acute intracranial abnormalities. 2. Nonacute bilateral caudate nuclei lacunar infarcts as before. Dictated by: Barron Sheridan M.D. on 02/24/2017 at 17:46 Approved by: Barron Sheridan M.D. on 02/24/2017 at 17:50 PROCEDURE: US BILATERAL DUPLEX DOPPLER IMAGING OF THE CAROTIDS ([id number]) IMPRESSION: 1. Less than 50% bilateral internal carotid artery stenosis. 2. Antegrade vertebral artery flow bilaterally. Dictated by: Rosette Espinoza M.D. on 02/25/2017 at 10:38 Approved by: Rosette Espinoza M.D. on 02/25/2017 at 10:39 Cardiac Echo Impressions Echocardiogram Report The left ventricle is mildly dilated. The ejection fraction is estimated to be 25-30%. There is severe hypokinesis of the mid and distal septum, and akinesis of the septum and posterior wall. The anterior wall is hypokinetic and in apical inferior wall is akinetic. The right ventricle is mildly dilated. There is severe biatrial enlargement. There is moderate to severe mitral regurgitation. The aortic valve is mildly calcified. There is moderate tricuspid regurgitation. The right ventricular systolic pressure is estimated at 75 mmHg assuming a right atrial pressure of 15 mm Hg. Electronically signed by: Luis Cornell on Reading Physician:02/27/2017 03:08 PM Additional Diagnostics X-RAY BARIUM SWALLOW ESOPHAGUS IMPRESSION: Very limited exam showing no evidence of laryngeal penetration or aspiration with thin through thick barium products. Deglutition and initial peristalsis appeared adequate. There is no high-grade obstruction in the mid or distal esophagus. Dictated and approved by Ed Catalan M.D. on 02/27/2017 at 16:06 Plan Impression Impression #1 acute upper GI bleed #2 acute kidney injury with prerenal azotemia secondary to #1 #3 intravascular dehydration number for diabetic nephropathy #5 hypertension with hypertensive heart disease and hypertensive nephrosclerosis. Recommendations #1 over to continue cautious hydration with the patient and we need to continue to follow his intake, upper, and lab values. Jakob Bell DO Mar 01, 2017 17:45
[2017-03-02] VITALS (7 sets, daily range): BP systolic 100–138; BP diastolic 61–72; PULSE 58–63; RESP 16–20; O2SAT 94–96
--- NOTE | 2017-03-02 01:44 | NUR ---
Mentation Pt has a more animated affect compared to this time yesterday. Pt able to answer questions with a yes or no nod. Feeding self and able to drink liquids without issues.
[2017-03-02 04:26] LABS: BASOPHILS % (AUTO) 0.6 % (0-3); EOSINOPHILS % (AUTO) 1.2 % (0-5); MONOCYTES % (AUTO) 12.9 % (4-12); Mean Corpuscular Hemoglobin 28.6 pg (27.0-35.0); Mean Corpuscular Volume 89.6 fL (81-100); NEUTROPHILS % (AUTO) 57.3 % (40-74)
[2017-03-02 04:27] LABS: Platelet Count 76 bil/L (150-400)
[2017-03-02] MEDS: Pantoprazole 4 mg/mL 10 mL Inj IVPUSH SCH ×2 (08:59→19:51)
--- NOTE | 2017-03-02 10:27 | NUR ---
NUTRITION FOLLOW-UP: ASSESS: Pt is an 82yo M admitted for AMS, increasing fatigue, GI bleed, lethargy, and slurred speech. ST has placed pt on pureed diet with NT liquids and pt has been tolerating this diet well. He is able to feed himself and mentation is improving. Nephrology is following for SHMUEL. PO has improved to ~50-100% of meals. Wt has overall been stable throughout hospital stay. PMHX: HTN, [place], CAD, CHF, pulmonary hypertension, T2DM, chronic kidney injury LABS: Reviewed. Bun 122, Raw Sampler 2.42, Glu 148, Alb 2.8 MEDS: Reviewed. GI: BMx2 03/01 SKIN: [place] 17 CURRENT WTS: 78.6kg, BMI 24.2kg/m2, admit wt 76.8kg DIET: Pureed, PO 50-100% EST. NEEDS: SHMUEL Kcals: 1955-2346kcal/day (25-30kcal/kg) Pro: 65-80g/day (.8-1.0g/kg) NUTRITION DIAGNOSIS: 1.) Chew/swallow difficulty related to dysphagia and poor dentition as evidence by need for dysphagia mechanical diet w/NT liquids per ST.PERSISTS NUTRITION INTERVENTION: 1.) Continue NT Glucerna on L tray to help supplement PO intake. 2.) Continue diet per ST MONITOR / EVAL: PO, ST, labs, wt, GI, POC, nutrition status. Will continue to monitor per moderate nutrition risk guidelines.
--- NOTE | 2017-03-02 11:07 | NUR ---
OC OC signed
--- NOTE | 2017-03-02 11:38 | PCM.PNMED ---
Subjective Date of Service Mar 02, 2017 Subjective 82 YO gentleman with past medical history of coronary artery disease, chronic kidney disease, type 2 diabetes, and recent DVT, who presented with altered mental status and acute blood loss anemia. Hospital day #7. He continues to have increased energy, although he seems to lose energy quickly through the day. He is slowly ambulating more with PT. Yesterday the patient was able to walk about 35 feet (according to his ) with assistance. He is still only able to tolerate soft foods. Although he still does not speak very much, his speech is clear and logical. No outward signs of bleeding. Urine output adequate. Patient denies dysuria. Exam Vital Signs Vital Sign - Last Date Time Temp Pulse Resp B/P Pulse Ox O2 Delivery O2 Flow Rate FiO2 03/02/17 08:48 35.6 61 20 105/66 94 Room Air 03/01/17 22:56 2.00 Intake and Output 03/01/17 03/01/17 03/02/17 Cumulative From/Thru 15:00 23:00 07:00 02/24/17 16:17 - 03/02/17 05:59 Intake Total 1412 ml 200 ml 7143 ml Output Total 500 ml 4185 ml Balance 912 ml 200 ml 2958 ml Intake Oral 820 ml 200 ml 2744 ml IV Total 592 ml 4399 ml Output Urine Total 500 ml 4185 ml # Voids 4 1 9 # Bowel Movements 2 0 5 Exam General: patient alert and oriented but appears tired. Sitting up comfortably in chair, had helped groom and brush his teeth. Cardiovascular: muffled heart sounds. Respiratory: lungs clear to auscultation bilaterally. Neuro: CN II-XII grossly intact. Mentation appropriate, speech clear but limited and similar to yesterday. Lab and Diagnostics Result Diagram: 03/02/17 0420 03/02/17 0420 X-Rays, CTs and MRIs PROCEDURE: X-RAY CHEST ONE VIEW, PORTABLE ([id number]) IMPRESSION: Small bibasilar pleural effusions, with increased bibasilar compressive atelectasis versus evolving bronchopneumonia. Dictated by: Barron Sheridan M.D. on 02/24/2017 at 17:50 Approved by: Barron Sheridan M.D. on 02/24/2017 at 17:52 PROCEDURE: CT BRAIN WITHOUT CONTRAST ([id number]) IMPRESSION: 1. No acute intracranial abnormalities. 2. Nonacute bilateral caudate nuclei lacunar infarcts as before. Dictated by: Barron Sheridan M.D. on 02/24/2017 at 17:46 Approved by: Barron Sheridan M.D. on 02/24/2017 at 17:50 PROCEDURE: US BILATERAL DUPLEX DOPPLER IMAGING OF THE CAROTIDS ([id number]) IMPRESSION: 1. Less than 50% bilateral internal carotid artery stenosis. 2. Antegrade vertebral artery flow bilaterally. Dictated by: Rosette Espinoza M.D. on 02/25/2017 at 10:38 Approved by: Rosette Espinoza M.D. on 02/25/2017 at 10:39 Cardiac Echo Impressions Echocardiogram Report The left ventricle is mildly dilated. The ejection fraction is estimated to be 25-30%. There is severe hypokinesis of the mid and distal septum, and akinesis of the septum and posterior wall. The anterior wall is hypokinetic and in apical inferior wall is akinetic. The right ventricle is mildly dilated. There is severe biatrial enlargement. There is moderate to severe mitral regurgitation. The aortic valve is mildly calcified. There is moderate tricuspid regurgitation. The right ventricular systolic pressure is estimated at 75 mmHg assuming a right atrial pressure of 15 mm Hg. Electronically signed by: Luis Cornell on Reading Physician:02/27/2017 03:08 PM Additional Diagnostics X-RAY BARIUM SWALLOW ESOPHAGUS IMPRESSION: Very limited exam showing no evidence of laryngeal penetration or aspiration with thin through thick barium products. Deglutition and initial peristalsis appeared adequate. There is no high-grade obstruction in the mid or distal esophagus. Dictated and approved by Ed Catalan M.D. 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 Hospital day 6. 1. Acute blood loss anemia and GI bleed most likely secondary to supratherapeutic INR, present on admission. Active - Hemoglobin and hematocrit continuing to improve. No further red blood cell transfusions have been needed. -History of positive stool occult blood one month prior after initiating warfarin therapy for left lower extremity DVT - Gastroenterology has been consulted for likely upper intestinal bleed given history of chronic full dose aspirin, positive stool cold blood at last admission, increased BUN, report of melena, and significant lower hemoglobin than at baseline -The patient's does not wish for any "invasive" procedures such as an upper endoscopy or a colonoscopy, so a barium swallow study was done by Dr. Soares to evaluate dysphagia. The results were limited due to the patient's decreased level of consciousness at the time. Dr. Soares's progress note () suggested a possible repeat barium swallow to work up a possible obstruction and/or neoplasm. Benefits of a repeat are unclear - finding more pathology would warrant further invasive workup, which is, again, contrary to the patient's plans of care. Still, the patient and his are willing to proceed. Barium swallow to be performed today. -Home anticoagulation meds included warfarin and clopidogrel. Dr. Tucker and Dr. Thompson discussed with the patient's Katty the risks and benefits of continuing anticoagulation in light of his deep venous thrombosis and transient ischemic attack history, contrasted with his increasing risk of falls. His understands, and wishes for him to continue on only clopidogrel and aspirin at home upon discharge. - Continue holding all anticoagulation for now, since source of bleeding unknown. -Continue dysphagia diabetic diet -Continue Protonix drip and monitor labs 2. Acute on chronic kidney injury, present on admission. Active - Most likely d/t prerenal azotemia - Creatinine and BUN improving - Nephrology consulted, we appreciated their input. Per nephrology, continue IV normal saline intravenously at 60 ml/hr. Monitor fluid status to avoid volume overload secondary to systolic CHF - Avoid nephrotoxic agents - Espino catheter removed yesterday. Assistance at all times when ambulating. - Continue to hold outpatient diuretics including chlorthalidone and torsemide 3. Chronic systolic congestive heart failure, present on admission, active - Ejection fraction of 35-40% from echo done on 01/10/2017 with severe pulmonary hypertension - Recent echo preformed on 02/26/2017 revealed worsening cardiac function with ejection fraction of 25-30%, severe hypokinesis of the mid and distal septum, and akinesis of the septum and posterior wall, severe biatrial enlargement, moderate to severe mitral regurgitation, mildly calcified aortic valve and moderate tricuspid regurgitation - Due to the fact that the patient's is against any additional procedures, cardiology has not been consulted - We will have physical evaluation today in preparation for patient's discharge home within the next day or two 4. Hypotension, present on admission, improved -Blood pressure is within normal limits today -Continue to hold all diuresis and all blood pressure medications - Obtain orthostatic vital signs - Continue physical therapy to assess ambulatory safety. 5. Possible TIA, present on admission, improving -CT scan negative, patient's declines MRI even though patient has MRI compatible pacemaker -Ultrasound of the carotids: Less than 50% bilateral internal carotid artery stenosis. Antegrade vertebral artery flow bilaterally -Continue to monitor - Continue speech therapy 6. Hematoma around pacemaker, chronic, stable -Cardiology has examined and states that this is actually improved from the patient's baseline no further treatment needed just continue to monitor 7. Elevated troponins of uncertain significance, present on admission, active -Most likely stress-induced -Troponins 0.104-->0.100-->0.115 -Cardiology following pacemaker has been interrogated and is working appropriately 8. Recent history of left lower extremity DVT (01/09/17), currently stable -Hold all anticoagulation as patient is currently supratherapeutic and currently bleeding 9. Type II diabetes Controlled with diet. Continue dysphagia diabetic diet. DVT prophylaxis: -hold all medical anticoagulation at this time as patient is supratherapeutic and has a GI bleed Code Status: DNI, but yes to resuscitation including CPR, IV fluids, and medications GI Prophylaxis: Proton Pump Inhibitor VTE Prophylaxis: Other (Holding warfarin due to suspected gastrointestinal bleeding) VTE Mechanical Devices: Intermittant Pneumatic CD Resuscitation Status: Limited Interventions Limited Interventions: Compressions, Cardioversion/Defibrillation, BiPAP, Medications and IV Fluid Time spent 30 minutes KELVIN ROTH MD Mar 02, 2017 11:38 Milad Tucker MD Mar 04, 2017 17:10
[2017-03-02] MEDS: 0.9% Sodium Chloride 250 ML IV SCH (12:05)
--- NOTE | 2017-03-02 13:28 | DRSVH ---
PROCEDURE: X-RAY BARIUM SWALLOW ESOPHAGUS ([id number]) INDICATIONS: Dysphagia COMPARISON: [facility], CR, XR BARIUM SWALLOW ESOPHAGUS, 02/27/2017, 14:47. FINDINGS: Function: There is a abnormally diminished esophageal peristalsis, and also note is made of episodic tertiary contractions within the distal esophagus. No elicited gastroesophageal reflux. Morphology: The study is significantly limited by inability of the patient, and inability to fully c ooperate with the study. Single contrast views show no esophageal strictures, extrinsic mass effects , or diverticula. Limited images of the stomach demonstrate normal appearance. IMPRESSION: Limited study quality due to the dilatation of the patient, but the study does allow asse ssment for presence of mass lesion or esophageal stricture. There is esophageal dysmotility, but no sign of mass or stricture. Dictated by: Ermias Major M.D. on 03/02/2017 at 13:25 Approved by: Ermias Major M.D. on 03/02/2017 at 13:27
[2017-03-02] MEDS: 0.9% Sodium Chloride 1,000 ML IV SCH (14:35)
--- NOTE | 2017-03-02 14:40 | PCM.PNNEPH ---
Subjective Date of Service Mar 02, 2017 Subjective Mr. Walsh is much more alert and interactive today. His renal function continues to improve slowly. He denies any chest pain, shortness of breath, cough or wheezing. His intake is 2573 and urine output was 775. As morning his sodium is 141 potassium 4.1 chloride 104 and bicarbonate 20. BUN and creatinine were 122 and 2.14 respectively. Exam Vital Signs Vital Sign - Last Date Time Temp Pulse Resp B/P Pulse Ox O2 Delivery O2 Flow Rate FiO2 03/02/17 12:44 35.4 60 20 100/61 94 Room Air 03/01/17 22:56 2.00 Intake and Output 03/01/17 03/01/17 03/02/17 Cumulative From/Thru 15:00 23:00 07:00 02/24/17 16:17 - 03/02/17 05:59 Intake Total 1412 ml 200 ml 7143 ml Output Total 500 ml 4185 ml Balance 912 ml 200 ml 2958 ml Intake Oral 820 ml 200 ml 2744 ml IV Total 592 ml 4399 ml Output Urine Total 500 ml 4185 ml # Voids 4 1 9 # Bowel Movements 2 0 5 Exam Neck is supple without adenopathy thyromegaly or jugular venous distention. Lungs were clear to auscultation. Heart was regular rhythmical with a soft systolic murmur. Abdomen is soft without any tenderness rebound guarding masses or hepatosplenomegaly. She is not sure any evidence of any clubbing cyanosis or edema. Lab and Diagnostics Result Diagram: 03/02/17 0420 03/02/17 0420 X-Rays, CTs and MRIs PROCEDURE: X-RAY CHEST ONE VIEW, PORTABLE ([id number]) IMPRESSION: Small bibasilar pleural effusions, with increased bibasilar compressive atelectasis versus evolving bronchopneumonia. Dictated by: Barron Sheridan M.D. on 02/24/2017 at 17:50 Approved by: Barron Sheridan M.D. on 02/24/2017 at 17:52 PROCEDURE: CT BRAIN WITHOUT CONTRAST ([id number]) IMPRESSION: 1. No acute intracranial abnormalities. 2. Nonacute bilateral caudate nuclei lacunar infarcts as before. Dictated by: Barron Sheridan M.D. on 02/24/2017 at 17:46 Approved by: Barron Sheridan M.D. on 02/24/2017 at 17:50 PROCEDURE: US BILATERAL DUPLEX DOPPLER IMAGING OF THE CAROTIDS ([id number]) IMPRESSION: 1. Less than 50% bilateral internal carotid artery stenosis. 2. Antegrade vertebral artery flow bilaterally. Dictated by: Rosette Espinoza M.D. on 02/25/2017 at 10:38 Approved by: Rosette Espinoza M.D. on 02/25/2017 at 10:39 Cardiac Echo Impressions Echocardiogram Report The left ventricle is mildly dilated. The ejection fraction is estimated to be 25-30%. There is severe hypokinesis of the mid and distal septum, and akinesis of the septum and posterior wall. The anterior wall is hypokinetic and in apical inferior wall is akinetic. The right ventricle is mildly dilated. There is severe biatrial enlargement. There is moderate to severe mitral regurgitation. The aortic valve is mildly calcified. There is moderate tricuspid regurgitation. The right ventricular systolic pressure is estimated at 75 mmHg assuming a right atrial pressure of 15 mm Hg. Electronically signed by: Luis Cornell on Reading Physician:02/27/2017 03:08 PM Additional Diagnostics X-RAY BARIUM SWALLOW ESOPHAGUS IMPRESSION: Very limited exam showing no evidence of laryngeal penetration or aspiration with thin through thick barium products. Deglutition and initial peristalsis appeared adequate. There is no high-grade obstruction in the mid or distal esophagus. Dictated and approved by Ed Catalan M.D. on 02/27/2017 at 16:06 Plan Impression Impression #1 acute kidney injury which is resolving #2 renal azotemia #3 diabetic nephropathy #4 hypertension with hypertensive heart disease and hypertensive nephrosclerosis Recommendations #1 minute to continue to follow his intake, output, and lab. Jakob Bell DO Mar 02, 2017 14:40
--- NOTE | 2017-03-02 16:41 | NUR ---
Activity pt alert and appropriate, follows commands. pt up in chair most of shift. feeding self at meals, assisting and close by. pt ambulating with sba and fww around room. tolerating activity well with only mild soboe noted. will continue to monitor.
--- NOTE | 2017-03-02 23:23 | NUR ---
MENTATION Pt did not speak, just shook head yes or no, pt's did most of the talking. Pt denied any pain, vitals stable, uneventful night.
[2017-03-03] VITALS (9 sets, daily range): BP systolic 100–124; BP diastolic 62–81; PULSE 56–69; RESP 16–24; O2SAT 92–96
[2017-03-03 06:25] LABS: BASOPHILS % (AUTO) 0.3 % (0-3); EOSINOPHILS % (AUTO) 1.2 % (0-5); MONOCYTES % (AUTO) 9.7 % (4-12); Mean Corpuscular Hemoglobin 28.6 pg (27.0-35.0); Mean Corpuscular Volume 89.2 fL (81-100); Platelet Count 79 bil/L (150-400)
[2017-03-03] MEDS: 0.9% Sodium Chloride 1,000 ML IV SCH (09:03)
[2017-03-03] MEDS: Pantoprazole 4 mg/mL 10 mL Inj IVPUSH SCH ×2 (09:04→21:07)
--- NOTE | 2017-03-03 09:22 | PCM.PNMED ---
Subjective Date of Service Mar 03, 2017 Subjective Patient continues to improve. He is up and around more often, although he continues to be quite week. Physical therapy goes well. He denies pain. He is still only able to tolerate soft foods. Although he still does not speak very much, his speech is clear and logical. Exam Vital Signs Vital Sign - Last Date Time Temp Pulse Resp B/P Pulse Ox O2 Delivery O2 Flow Rate FiO2 03/03/17 08:52 69 24 113/69 96 Room Air 03/03/17 04:20 35.9 03/01/17 22:56 2.00 Intake and Output 03/02/17 03/02/17 03/03/17 Cumulative From/Thru 15:00 23:00 07:00 02/24/17 16:17 - 03/03/17 06:40 Intake Total 1947 ml 858 ml 9948 ml Output Total 300 ml 275 ml 4760 ml Balance 1647 ml 583 ml 5188 ml Intake Oral 660 ml 120 ml 3524 ml IV Total 1287 ml 738 ml 6424 ml Output Urine Total 300 ml 275 ml 4760 ml # Voids 9 # Bowel Movements 0 5 Exam General: patient alert and oriented but appears tired. Sitting up comfortably in chair. Cardiovascular: muffled heart sounds. Respiratory: lungs clear to auscultation bilaterally. Neuro: CN II-XII grossly intact. Mentation appropriate, speech clear but limited and similar to yesterday. Lab and Diagnostics Result Diagram: 03/03/17 0602 03/03/17 0602 X-Rays, CTs and MRIs X-RAY CHEST IMPRESSION: Small bibasilar pleural effusions, with increased bibasilar compressive atelectasis versus evolving bronchopneumonia. Dictated and approved by: Barron Sheridan M.D. on 02/24/2017 at 17:50 CT BRAIN WITHOUT CONTRAST IMPRESSION: 1. No acute intracranial abnormalities. 2. Nonacute bilateral caudate nuclei lacunar infarcts as before. Dictated and approved by: Barron Sheridan M.D. on 02/24/2017 at 17:46 US BILATERAL DUPLEX DOPPLER IMAGING OF THE CAROTIDS IMPRESSION: 1. Less than 50% bilateral internal carotid artery stenosis. 2. Antegrade vertebral artery flow bilaterally. Dictated and approved by: Rosette Espinoza M.D. on 02/25/2017 at 10:38 Cardiac Echo Impressions Echocardiogram Report The left ventricle is mildly dilated. The ejection fraction is estimated to be 25-30%. There is severe hypokinesis of the mid and distal septum, and akinesis of the septum and posterior wall. The anterior wall is hypokinetic and in apical inferior wall is akinetic. The right ventricle is mildly dilated. There is severe biatrial enlargement. There is moderate to severe mitral regurgitation. The aortic valve is mildly calcified. There is moderate tricuspid regurgitation. The right ventricular systolic pressure is estimated at 75 mmHg assuming a right atrial pressure of 15 mm Hg. Electronically signed by: Luis Cornell on Reading Physician:02/27/2017 03:08 PM Additional Diagnostics X-RAY BARIUM SWALLOW ESOPHAGUS IMPRESSION: Very limited exam showing no evidence of laryngeal penetration or aspiration with thin through thick barium products. Deglutition and initial peristalsis appeared adequate. There is no high-grade obstruction in the mid or distal esophagus. Dictated and approved by Ed Catalan M.D. on 02/27/2017 at 16:06 X-RAY BARIUM SWALLOW ESOPHAGUS IMPRESSION: Limited study quality due to the dilatation of the patient, but the study does allow assessment for presence of mass lesion or esophageal stricture. There is esophageal dysmotility, but no sign of mass or stricture. Dictated and approved by: Ermias Major M.D. 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 Hospital day 7. 1. Acute blood loss anemia and GI bleed most likely secondary to supratherapeutic INR, present on admission. Active - Hemoglobin and hematocrit continuing to improve. No further red blood cell transfusions have been needed. -History of positive stool occult blood one month prior after initiating warfarin therapy for left lower extremity DVT - Gastroenterology has been consulted for likely upper intestinal bleed given history of chronic full dose aspirin, positive stool cold blood at last admission, increased BUN, report of melena, and significant lower hemoglobin than at baseline -The patient's does not wish for any "invasive" procedures such as an upper endoscopy or a colonoscopy, so a barium swallow study was done by Dr. Soares to evaluate dysphagia. The results were limited due to the patient's decreased level of consciousness at the time. Dr. Soares's progress note () suggested a possible repeat barium swallow to work up a possible obstruction and/or neoplasm. Benefits of a repeat are unclear - finding more pathology would warrant further invasive workup, which is, again, contrary to the patient's plans of care. Still, the patient and his are willing to proceed. Second Barium swallow performed on 03/03/17 and is negative for mass or esophageal stricture. -Home anticoagulation meds included warfarin and clopidogrel. Dr. Tucker and Dr. Thompson discussed with the patient's Katty the risks and benefits of continuing anticoagulation in light of his deep venous thrombosis and transient ischemic attack history, contrasted with his increasing risk of falls. His understands, and wishes for him to continue on only clopidogrel and aspirin at home upon discharge. - Continue holding all anticoagulation for now, since source of bleeding unknown. -Continue dysphagia diabetic diet -Continue Protonix drip and monitor labs 2. Acute on chronic kidney injury, present on admission. Active - Most likely d/t prerenal azotemia - Creatinine and BUN improving - Nephrology consulted, we appreciated their input. Per nephrology, continue IV normal saline intravenously at 60 ml/hr. Monitor fluid status to avoid volume overload secondary to systolic CHF - Avoid nephrotoxic agents - Espino catheter removed yesterday. Assistance at all times when ambulating. - Continue to hold outpatient diuretics including chlorthalidone and torsemide 3. Chronic systolic congestive heart failure, present on admission, active - Ejection fraction of 35-40% from echo done on 01/10/2017 with severe pulmonary hypertension - Recent echo preformed on 02/26/2017 revealed worsening cardiac function with ejection fraction of 25-30%, severe hypokinesis of the mid and distal septum, and akinesis of the septum and posterior wall, severe biatrial enlargement, moderate to severe mitral regurgitation, mildly calcified aortic valve and moderate tricuspid regurgitation - Due to the fact that the patient's is against any additional procedures, cardiology has not been consulted - Continue physical evaluation today in preparation for patient's discharge home within the next day or two 4. Hypotension, present on admission, improved -Blood pressure is within normal limits today -Continue to hold all diuresis and all blood pressure medications - Continue physical therapy to assess ambulatory safety. 5. Possible TIA, present on admission, improving -CT scan negative, patient's declines MRI even though patient has MRI compatible pacemaker -Ultrasound of the carotids: Less than 50% bilateral internal carotid artery stenosis. Antegrade vertebral artery flow bilaterally -Continue to monitor -Continue speech therapy 6. Hematoma around pacemaker, chronic, stable -Cardiology has examined and states that this is actually improved from the patient's baseline no further treatment needed just continue to monitor 7. Elevated troponins of uncertain significance, present on admission, active -Most likely stress-induced -Troponins 0.104-->0.100-->0.115 -Cardiology following pacemaker has been interrogated and is working appropriately 8. Recent history of left lower extremity DVT (01/09/17), currently stable -Hold all anticoagulation as patient is currently supratherapeutic and currently bleeding 9. Type II diabetes Controlled with diet. Continue dysphagia diabetic diet. DVT prophylaxis: -hold all medical anticoagulation at this time as patient is supratherapeutic and has a GI bleed Code Status: DNI, but yes to resuscitation including CPR, IV fluids, and medications Pain Evaluation: Adequate Pain Control GI Prophylaxis: Proton Pump Inhibitor VTE Prophylaxis: Other (Holding warfarin due to suspected gastrointestinal bleeding) VTE Mechanical Devices: Intermittant Pneumatic CD Resuscitation Status: Limited Interventions Limited Interventions: Compressions, Cardioversion/Defibrillation, BiPAP, Medications and IV Fluid Attending Statement The patient was seen and examined together with Dr. Thompson on 03/03/2017 and I agree with the history, exam and plan as outlined in the note above. . Kathleen Thompson DO Mar 03, 2017 09:22 Milad Tucker MD Mar 03, 2017 17:57
[2017-03-03] MEDS: 0.9% Sodium Chloride 250 ML IV SCH (12:05)
--- NOTE | 2017-03-03 12:39 | PCM.PNNEPH ---
Subjective Date of Service Mar 03, 2017 Subjective The patient is continuing to improve renal point of view. His barium swallow and modified barium swallow were abnormal but nonspecific. His dysphagia seems to be episodic and not related to the texture of food or liquid. The patient does appear to be a bit more alert and interactive and offers no new complaints. Exam Vital Signs Vital Sign - Last Date Time Temp Pulse Resp B/P Pulse Ox O2 Delivery O2 Flow Rate FiO2 03/03/17 12:02 35.9 64 22 102/64 94 Room Air 03/01/17 22:56 2.00 Intake and Output 03/02/17 03/02/17 03/03/17 Cumulative From/Thru 15:00 23:00 07:00 02/24/17 16:17 - 03/03/17 06:40 Intake Total 1947 ml 858 ml 9948 ml Output Total 300 ml 275 ml 4760 ml Balance 1647 ml 583 ml 5188 ml Intake Oral 660 ml 120 ml 3524 ml IV Total 1287 ml 738 ml 6424 ml Output Urine Total 300 ml 275 ml 4760 ml # Voids 9 # Bowel Movements 0 5 Exam Neck is supple without adenopathy thyromegaly or jugular venous distention. Lungs are clear to auscultation. Heart is regular with a soft systolic murmur. Abdomen is soft without any tenderness or rebound guarding masses or hepatosplenomegaly. Extremities do not show any evidence of any clubbing cyanosis or edema. Skin turgor is good and there is no evidence of any rashes. Lab and Diagnostics Result Diagram: 03/03/17 0602 03/03/17 0602 X-Rays, CTs and MRIs X-RAY CHEST IMPRESSION: Small bibasilar pleural effusions, with increased bibasilar compressive atelectasis versus evolving bronchopneumonia. Dictated and approved by: Barron Sheridan M.D. on 02/24/2017 at 17:50 CT BRAIN WITHOUT CONTRAST IMPRESSION: 1. No acute intracranial abnormalities. 2. Nonacute bilateral caudate nuclei lacunar infarcts as before. Dictated and approved by: Barron Sheridan M.D. on 02/24/2017 at 17:46 US BILATERAL DUPLEX DOPPLER IMAGING OF THE CAROTIDS IMPRESSION: 1. Less than 50% bilateral internal carotid artery stenosis. 2. Antegrade vertebral artery flow bilaterally. Dictated and approved by: Rosette Espinoza M.D. on 02/25/2017 at 10:38 Cardiac Echo Impressions Echocardiogram Report The left ventricle is mildly dilated. The ejection fraction is estimated to be 25-30%. There is severe hypokinesis of the mid and distal septum, and akinesis of the septum and posterior wall. The anterior wall is hypokinetic and in apical inferior wall is akinetic. The right ventricle is mildly dilated. There is severe biatrial enlargement. There is moderate to severe mitral regurgitation. The aortic valve is mildly calcified. There is moderate tricuspid regurgitation. The right ventricular systolic pressure is estimated at 75 mmHg assuming a right atrial pressure of 15 mm Hg. Electronically signed by: Luis Cornell on Reading Physician:02/27/2017 03:08 PM Additional Diagnostics X-RAY BARIUM SWALLOW ESOPHAGUS IMPRESSION: Very limited exam showing no evidence of laryngeal penetration or aspiration with thin through thick barium products. Deglutition and initial peristalsis appeared adequate. There is no high-grade obstruction in the mid or distal esophagus. Dictated and approved by Ed Catalan M.D. on 02/27/2017 at 16:06 X-RAY BARIUM SWALLOW ESOPHAGUS IMPRESSION: Limited study quality due to the dilatation of the patient, but the study does allow assessment for presence of mass lesion or esophageal stricture. There is esophageal dysmotility, but no sign of mass or stricture. Dictated and approved by: Ermias Major M.D. on 03/02/2017 at 13:25 Plan Impression Impression #1 acute kidney injury which is resolved number to diabetic nephropathy #3 hypertension with hypertensive heart disease hypertension nephrosclerosis, stage 3/4 chronic kidney disease Recommendations #1 in light of his swallowing difficulties and nondiagnostic test I would recommend an ENT evaluation for further exploration of this. Jakob Bell DO Mar 03, 2017 12:39
--- NOTE | 2017-03-03 18:01 | NUR ---
Activity Patient A&O x3. Very little verbal response to this RN, speaks directly to in [place] or answers for him. VSS. Denies pain/discomfort. Ambulated in hallway with FWW and caregiver assist. 1PA to bathroom. Call light with in reach and at bedside.
--- NOTE | 2017-03-03 18:02 | PCM.PNMED ---
Subjective Date of Service Mar 01, 2017 Subjective Patient is continuing to improve. Currently sitting up in a bedside chair and having small bites of solid. His energy level is better today.His speech is clear although still minimal. His Espino catheter was removed yesterday, and he is going to the bathroom with assistance. Exam Vital Signs Vital Sign - Last Date Time Temp Pulse Resp B/P Pulse Ox O2 Delivery O2 Flow Rate FiO2 03/03/17 17:26 36.8 60 18 100/62 96 Room Air 03/01/17 22:56 2.00 Intake and Output 03/02/17 03/02/17 03/03/17 Cumulative From/Thru 14:59 22:59 06:59 02/24/17 16:17 - 03/03/17 06:40 Intake Total 1947 ml 858 ml 9948 ml Output Total 300 ml 275 ml 4760 ml Balance 1647 ml 583 ml 5188 ml Intake Oral 660 ml 120 ml 3524 ml IV Total 1287 ml 738 ml 6424 ml Output Urine Total 300 ml 275 ml 4760 ml # Voids 9 # Bowel Movements 0 5 Exam General: patient alert and oriented but appears tired. Sitting up comfortably in chair. Cardiovascular: muffled heart sounds. Respiratory: lungs clear to auscultation bilaterally. Neuro: CN II-XII grossly intact. Mentation appropriate, speech clear but limited and similar to yesterday. Lab and Diagnostics Result Diagram: 03/03/17 0602 03/03/17 0602 X-Rays, CTs and MRIs X-RAY CHEST IMPRESSION: Small bibasilar pleural effusions, with increased bibasilar compressive atelectasis versus evolving bronchopneumonia. Dictated and approved by: Barron Sheridan M.D. on 02/24/2017 at 17:50 CT BRAIN WITHOUT CONTRAST IMPRESSION: 1. No acute intracranial abnormalities. 2. Nonacute bilateral caudate nuclei lacunar infarcts as before. Dictated and approved by: Barron Sheridan M.D. on 02/24/2017 at 17:46 US BILATERAL DUPLEX DOPPLER IMAGING OF THE CAROTIDS IMPRESSION: 1. Less than 50% bilateral internal carotid artery stenosis. 2. Antegrade vertebral artery flow bilaterally. Dictated and approved by: Rosette Espinoza M.D. on 02/25/2017 at 10:38 Cardiac Echo Impressions Echocardiogram Report The left ventricle is mildly dilated. The ejection fraction is estimated to be 25-30%. There is severe hypokinesis of the mid and distal septum, and akinesis of the septum and posterior wall. The anterior wall is hypokinetic and in apical inferior wall is akinetic. The right ventricle is mildly dilated. There is severe biatrial enlargement. There is moderate to severe mitral regurgitation. The aortic valve is mildly calcified. There is moderate tricuspid regurgitation. The right ventricular systolic pressure is estimated at 75 mmHg assuming a right atrial pressure of 15 mm Hg. Electronically signed by: Luis Cornell on Reading Physician:02/27/2017 03:08 PM Additional Diagnostics X-RAY BARIUM SWALLOW ESOPHAGUS IMPRESSION: Very limited exam showing no evidence of laryngeal penetration or aspiration with thin through thick barium products. Deglutition and initial peristalsis appeared adequate. There is no high-grade obstruction in the mid or distal esophagus. Dictated and approved by Ed Catalan M.D. on 02/27/2017 at 16:06 X-RAY BARIUM SWALLOW ESOPHAGUS IMPRESSION: Limited study quality due to the dilatation of the patient, but the study does allow assessment for presence of mass lesion or esophageal stricture. There is esophageal dysmotility, but no sign of mass or stricture. Dictated and approved by: Ermias Major M.D. 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 Hospital day 6. 1. Acute blood loss anemia and GI bleed most likely secondary to supratherapeutic INR, present on admission. Active - Hemoglobin and hematocrit continuing to improve. No further red blood cell transfusions have been needed. -History of positive stool occult blood one month prior after initiating warfarin therapy for left lower extremity DVT - Gastroenterology has been consulted for likely upper intestinal bleed given history of chronic full dose aspirin, positive stool cold blood at last admission, increased BUN, report of melena, and significant lower hemoglobin than at baseline -The patient's does not wish for any "invasive" procedures such as an upper endoscopy or a colonoscopy, so a barium swallow study was done by Dr. Soares to evaluate dysphagia. The results were limited due to the patient's decreased level of consciousness at the time. Dr. Soares's progress note () suggested a possible repeat barium swallow to work up a possible obstruction and/or neoplasm. Benefits of a repeat are unclear - finding more pathology would warrant further invasive workup, which is, again, contrary to the patient's plans of care. Still, the patient and his are willing to proceed. Will plan to repeat barium swallow if the patient's cognition and physical stamina improve. -Home anticoagulation meds included warfarin and clopidogrel. Dr. Tucker and Dr. Thompson discussed with the patient's Katty the risks and benefits of continuing anticoagulation in light of his deep venous thrombosis and transient ischemic attack history, contrasted with his increasing risk of falls. His understands, and wishes for him to continue on only clopidogrel and aspirin at home upon discharge. - Continue holding all anticoagulation for now, since source of bleeding unknown. -Continue dysphagia diabetic diet -Continue Protonix drip and monitor labs 2. Acute on chronic kidney injury, present on admission. Active - Most likely d/t prerenal azotemia - Creatinine and BUN improving - Nephrology consulted, we appreciated their input. Per nephrology, continue IV normal saline intravenously at 60 ml/hr. Monitor fluid status to avoid volume overload secondary to systolic CHF - Avoid nephrotoxic agents - Espino catheter removed yesterday. Assistance at all times when ambulating. - Continue to hold outpatient diuretics including chlorthalidone and torsemide 3. Chronic systolic congestive heart failure, present on admission, active - Ejection fraction of 35-40% from echo done on 01/10/2017 with severe pulmonary hypertension - Recent echo preformed on 02/26/2017 revealed worsening cardiac function with ejection fraction of 25-30%, severe hypokinesis of the mid and distal septum, and akinesis of the septum and posterior wall, severe biatrial enlargement, moderate to severe mitral regurgitation, mildly calcified aortic valve and moderate tricuspid regurgitation - Due to the fact that the patient's is against any additional procedures, cardiology has not been consulted - We will have physical evaluation today in preparation for patient's discharge home within the next day or two 4. Hypotension, present on admission, improved -Blood pressure is within normal limits today -Continue to hold all diuresis and all blood pressure medications - Obtain orthostatic vital signs - Continue physical therapy to assess ambulatory safety. 5. Possible TIA, present on admission, improving -CT scan negative, patient's declines MRI even though patient has MRI compatible pacemaker -Ultrasound of the carotids: Less than 50% bilateral internal carotid artery stenosis. Antegrade vertebral artery flow bilaterally -Continue to monitor - Continue speech therapy 6. Hematoma around pacemaker, chronic, stable -Cardiology has examined and states that this is actually improved from the patient's baseline no further treatment needed just continue to monitor 7. Elevated troponins of uncertain significance, present on admission, active -Most likely stress-induced -Troponins 0.104-->0.100-->0.115 -Cardiology following pacemaker has been interrogated and is working appropriately 8. Recent history of left lower extremity DVT (01/09/17), currently stable -Hold all anticoagulation as patient is currently supratherapeutic and currently bleeding DVT prophylaxis: -hold all medical anticoagulation at this time as patient is supratherapeutic and has a GI bleed Pain Evaluation: Adequate Pain Control GI Prophylaxis: Proton Pump Inhibitor VTE Prophylaxis: Other (Holding warfarin due to suspected gastrointestinal bleeding) VTE Mechanical Devices: Intermittant Pneumatic CD Resuscitation Status: Limited Interventions Limited Interventions: Compressions, Cardioversion/Defibrillation, BiPAP, Medications and IV Fluid Attending Statement The patient was seen and examined together with Dr. Thompson on 03/01/2017 and I agree with the history, exam and plan as outlined in the note above. . Kathleen Thompson DO Mar 03, 2017 18:02 Milad Tucker MD Mar 04, 2017 17:07
--- NOTE | 2017-03-03 18:09 | PCM.PNMED ---
Subjective Date of Service Mar 02, 2017 Subjective Patient continues to do better. He is slowly ambulating more with physical therapist. Yesterday the patient was able to walk about 35 feet (according to his ) with assistance. Tolerates soft foods. His speech is more clear and logical. Exam Vital Signs Vital Sign - Last Date Time Temp Pulse Resp B/P Pulse Ox O2 Delivery O2 Flow Rate FiO2 03/03/17 17:26 36.8 60 18 100/62 96 Room Air 03/01/17 22:56 2.00 Intake and Output 03/02/17 03/02/17 03/03/17 Cumulative From/Thru 14:59 22:59 06:59 02/24/17 16:17 - 03/03/17 06:40 Intake Total 1947 ml 858 ml 9948 ml Output Total 300 ml 275 ml 4760 ml Balance 1647 ml 583 ml 5188 ml Intake Oral 660 ml 120 ml 3524 ml IV Total 1287 ml 738 ml 6424 ml Output Urine Total 300 ml 275 ml 4760 ml # Voids 9 # Bowel Movements 0 5 Exam General: patient alert and oriented, sitting up comfortably in chair smiling. Cardiovascular: muffled heart sounds. Respiratory: lungs clear to auscultation bilaterally. Neuro: CN II-XII grossly intact. Mentation appropriate, speech clear but limited and similar to yesterday. Lab and Diagnostics Vital Sign - Last Date Time Temp Pulse Resp B/P Pulse Ox O2 Delivery O2 Flow Rate FiO2 03/02/17 08:48 35.6 61 20 105/66 94 Room Air 03/01/17 22:56 2.00 Intake and Output 03/01/17 03/01/17 03/02/17 Cumulative From/Thru 15:00 23:00 07:00 02/24/17 16:17 - 03/02/17 05:59 Intake Total 1412 ml 200 ml 7143 ml Output Total 500 ml 4185 ml Balance 912 ml 200 ml 2958 ml Intake Oral 820 ml 200 ml 2744 ml IV Total 592 ml 4399 ml Output Urine Total 500 ml 4185 ml # Voids 4 1 9 # Bowel Movements 2 0 5 Result Diagram: 03/03/17 0602 03/03/17 0602 X-Rays, CTs and MRIs X-RAY CHEST IMPRESSION: Small bibasilar pleural effusions, with increased bibasilar compressive atelectasis versus evolving bronchopneumonia. Dictated and approved by: Barron Sheridan M.D. on 02/24/2017 at 17:50 CT BRAIN WITHOUT CONTRAST IMPRESSION: 1. No acute intracranial abnormalities. 2. Nonacute bilateral caudate nuclei lacunar infarcts as before. Dictated and approved by: Barron Sheridan M.D. on 02/24/2017 at 17:46 US BILATERAL DUPLEX DOPPLER IMAGING OF THE CAROTIDS IMPRESSION: 1. Less than 50% bilateral internal carotid artery stenosis. 2. Antegrade vertebral artery flow bilaterally. Dictated and approved by: Rosette Espinoza M.D. on 02/25/2017 at 10:38 Cardiac Echo Impressions Echocardiogram Report The left ventricle is mildly dilated. The ejection fraction is estimated to be 25-30%. There is severe hypokinesis of the mid and distal septum, and akinesis of the septum and posterior wall. The anterior wall is hypokinetic and in apical inferior wall is akinetic. The right ventricle is mildly dilated. There is severe biatrial enlargement. There is moderate to severe mitral regurgitation. The aortic valve is mildly calcified. There is moderate tricuspid regurgitation. The right ventricular systolic pressure is estimated at 75 mmHg assuming a right atrial pressure of 15 mm Hg. Electronically signed by: Luis Cornell on Reading Physician:02/27/2017 03:08 PM Additional Diagnostics X-RAY BARIUM SWALLOW ESOPHAGUS IMPRESSION: Very limited exam showing no evidence of laryngeal penetration or aspiration with thin through thick barium products. Deglutition and initial peristalsis appeared adequate. There is no high-grade obstruction in the mid or distal esophagus. Dictated and approved by Ed Catalan M.D. on 02/27/2017 at 16:06 X-RAY BARIUM SWALLOW ESOPHAGUS IMPRESSION: Limited study quality due to the dilatation of the patient, but the study does allow assessment for presence of mass lesion or esophageal stricture. There is esophageal dysmotility, but no sign of mass or stricture. Dictated and approved by: Ermias Major M.D. 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 Hospital day 6. 1. Acute blood loss anemia and GI bleed most likely secondary to supratherapeutic INR, present on admission. Active - Hemoglobin and hematocrit continuing to improve. No further red blood cell transfusions have been needed. -History of positive stool occult blood one month prior after initiating warfarin therapy for left lower extremity DVT - Gastroenterology has been consulted for likely upper intestinal bleed given history of chronic full dose aspirin, positive stool cold blood at last admission, increased BUN, report of melena, and significant lower hemoglobin than at baseline -The patient's does not wish for any "invasive" procedures such as an upper endoscopy or a colonoscopy, so a barium swallow study was done by Dr. Soares to evaluate dysphagia. The results were limited due to the patient's decreased level of consciousness at the time. Dr. Soares's progress note () suggested a possible repeat barium swallow to work up a possible obstruction and/or neoplasm. Benefits of a repeat are unclear - finding more pathology would warrant further invasive workup, which is, again, contrary to the patient's plans of care. Still, the patient and his are willing to proceed. Barium swallow to be performed today. -Home anticoagulation meds included warfarin and clopidogrel. Dr. Tucker and Dr. Thompson discussed with the patient's Katty the risks and benefits of continuing anticoagulation in light of his deep venous thrombosis and transient ischemic attack history, contrasted with his increasing risk of falls. His understands, and wishes for him to continue on only clopidogrel and aspirin at home upon discharge. - Continue holding all anticoagulation for now, since source of bleeding unknown. -Continue dysphagia diabetic diet -Continue Protonix drip and monitor labs 2. Acute on chronic kidney injury, present on admission. Active - Most likely d/t prerenal azotemia - Creatinine and BUN improving - Nephrology consulted, we appreciated their input. Per nephrology, continue IV normal saline intravenously at 60 ml/hr. Monitor fluid status to avoid volume overload secondary to systolic CHF - Avoid nephrotoxic agents - Espino catheter removed yesterday. Assistance at all times when ambulating. - Continue to hold outpatient diuretics including chlorthalidone and torsemide 3. Chronic systolic congestive heart failure, present on admission, active - Ejection fraction of 35-40% from echo done on 01/10/2017 with severe pulmonary hypertension - Recent echo preformed on 02/26/2017 revealed worsening cardiac function with ejection fraction of 25-30%, severe hypokinesis of the mid and distal septum, and akinesis of the septum and posterior wall, severe biatrial enlargement, moderate to severe mitral regurgitation, mildly calcified aortic valve and moderate tricuspid regurgitation - Due to the fact that the patient's is against any additional procedures, cardiology has not been consulted - We will have physical evaluation today in preparation for patient's discharge home within the next day or two 4. Hypotension, present on admission, improved -Blood pressure is within normal limits today -Continue to hold all diuresis and all blood pressure medications - Obtain orthostatic vital signs - Continue physical therapy to assess ambulatory safety. 5. Possible TIA, present on admission, improving -CT scan negative, patient's declines MRI even though patient has MRI compatible pacemaker -Ultrasound of the carotids: Less than 50% bilateral internal carotid artery stenosis. Antegrade vertebral artery flow bilaterally -Continue to monitor - Continue speech therapy 6. Hematoma around pacemaker, chronic, stable -Cardiology has examined and states that this is actually improved from the patient's baseline no further treatment needed just continue to monitor 7. Elevated troponins of uncertain significance, present on admission, active -Most likely stress-induced -Troponins 0.104-->0.100-->0.115 -Cardiology following pacemaker has been interrogated and is working appropriately 8. Recent history of left lower extremity DVT (01/09/17), currently stable -Hold all anticoagulation as patient is currently supratherapeutic and currently bleeding 9. Type II diabetes Controlled with diet. Continue dysphagia diabetic diet. DVT prophylaxis: -hold all medical anticoagulation at this time as patient is supratherapeutic and has a GI bleed Pain Evaluation: Adequate Pain Control GI Prophylaxis: Proton Pump Inhibitor VTE Prophylaxis: Other (Holding warfarin due to suspected gastrointestinal bleeding) VTE Mechanical Devices: Intermittant Pneumatic CD Resuscitation Status: Limited Interventions Limited Interventions: Compressions, Cardioversion/Defibrillation, BiPAP, Medications and IV Fluid Attending Statement The patient was seen and examined together with Dr. Thompson on 03/02/2017 and I agree with the history, exam and plan as outlined in the note above. . Kathleen Thompson DO Mar 03, 2017 18:09 Milad Tucker MD Mar 04, 2017 17:07
--- NOTE | 2017-03-03 22:12 | NUR ---
TRANSFER Pt transferred to 3021 with all belongings in bed, with pt, report given to Ciarra York.
--- NOTE | 2017-03-03 23:35 | NUR ---
TRANSFER/ARRIVAL TO [facility] Pt arrived via bed to [facility] approx 2230. Chart and drawer medications brought up, as well as pt belongings. VS obtained. Pts w/ pt. Pts requests that all lights be left on. Pts prefers to sleep in chair. Pt has very fragile skin, bruising, and generalized edema. Wound eval ordered for skin breakdown on sacrum and L arm skin tear. Halle care performed. Calmoseptine and sacral mepilex applied. Pt is able to answer 'yes' and 'no' type questions, able to follow instructions. assists with most of questions. Pt denies pain at this time. Continue to monitor. Call light in reach. Intentional rounding.
[2017-03-04] VITALS (10 sets, daily range): BP systolic 102–168; BP diastolic 63–84; PULSE 58–104; RESP 15–18; O2SAT 94–98
[2017-03-04] MEDS: 0.9% Sodium Chloride 1,000 ML IV SCH ×2 (01:07→22:15)
[2017-03-04 06:20] LABS: BASOPHILS % (AUTO) 0.2 % (0-3); EOSINOPHILS % (AUTO) 1.1 % (0-5); MONOCYTES % (AUTO) 7.2 % (4-12); Mean Corpuscular Hemoglobin 28.8 pg (27.0-35.0); NEUTROPHILS % (AUTO) 60.9 % (40-74); Platelet Count 80 bil/L (150-400)
[2017-03-04] MEDS: Pantoprazole 4 mg/mL 10 mL Inj IVPUSH SCH (08:47)
--- NOTE | 2017-03-04 09:15 | NUR ---
OC signed by pt's ELEAZAR Pineda
[2017-03-04] MEDS ORDERED: Furosemide 10 mg/mL 10 mL Inj IVPUSH ONE ×2 (10:00→10:05)
[2017-03-04] MEDS ORDERED: FUROSEMIDE IVPUSH ONE (10:45)
[2017-03-04] MEDS ORDERED: DEXTROSE 5% IVPUSH ONE (10:45)
--- NOTE | 2017-03-04 12:00 | PCM.PNNEPH ---
Subjective Date of Service Mar 04, 2017 Subjective The patient's renal function is unchanged today. He appears more lethargic however he is able to eat small bites. He denies any chest pain, shortness of breath, cough or wheezing. His intake and output plus 24-hour shows sodium 137 in and only 275 and urine output. Blood pressures averaged between 100 920 systolic. She is 40 is 9.7, sodium 141, potassium 4.2, chloride 107, bicarbonate 18, BUN and creatinine are 118 and 2.67. Exam Vital Signs Vital Sign - Last Date Time Temp Pulse Resp B/P Pulse Ox O2 Delivery O2 Flow Rate FiO2 03/04/17 09:52 60 16 102/64 96 Room Air 03/04/17 06:31 35.4 03/01/17 22:56 2.00 Intake and Output 03/03/17 03/03/17 03/04/17 Cumulative From/Thru 15:00 23:00 07:00 02/24/17 16:17 - 03/04/17 06:31 Intake Total 2279 ml 357 ml 65611 ml Output Total 4760 ml Balance 2279 ml 357 ml 7824 ml Intake Oral 1600 ml 0 ml 5124 ml IV Total 679 ml 357 ml 7460 ml Output Urine Total 4760 ml # Voids 3 3 15 # Bowel Movements 0 5 Exam Neck is supple without adenopathy or thyromegaly. There is some mild to moderate jugular venous distention with the patient sitting up. Lungs showed scattered rhonchi and bibasilar rales. Heart was irregularly irregular. Abdomen is soft with diminished bowel sounds. There is some tympany to percussion no tenderness noted. Extremities showed mild to moderate pitting edema in both distal lower extremities bilaterally. Lab and Diagnostics Result Diagram: 03/04/17 0544 03/04/17 0544 X-Rays, CTs and MRIs X-RAY CHEST IMPRESSION: Small bibasilar pleural effusions, with increased bibasilar compressive atelectasis versus evolving bronchopneumonia. Dictated and approved by: Barron Sheridan M.D. on 02/24/2017 at 17:50 CT BRAIN WITHOUT CONTRAST IMPRESSION: 1. No acute intracranial abnormalities. 2. Nonacute bilateral caudate nuclei lacunar infarcts as before. Dictated and approved by: Barron Sheridan M.D. on 02/24/2017 at 17:46 US BILATERAL DUPLEX DOPPLER IMAGING OF THE CAROTIDS IMPRESSION: 1. Less than 50% bilateral internal carotid artery stenosis. 2. Antegrade vertebral artery flow bilaterally. Dictated and approved by: Rosette Espinoza M.D. on 02/25/2017 at 10:38 Cardiac Echo Impressions Echocardiogram Report The left ventricle is mildly dilated. The ejection fraction is estimated to be 25-30%. There is severe hypokinesis of the mid and distal septum, and akinesis of the septum and posterior wall. The anterior wall is hypokinetic and in apical inferior wall is akinetic. The right ventricle is mildly dilated. There is severe biatrial enlargement. There is moderate to severe mitral regurgitation. The aortic valve is mildly calcified. There is moderate tricuspid regurgitation. The right ventricular systolic pressure is estimated at 75 mmHg assuming a right atrial pressure of 15 mm Hg. Electronically signed by: Luis Cornell on Reading Physician:02/27/2017 03:08 PM Additional Diagnostics X-RAY BARIUM SWALLOW ESOPHAGUS IMPRESSION: Very limited exam showing no evidence of laryngeal penetration or aspiration with thin through thick barium products. Deglutition and initial peristalsis appeared adequate. There is no high-grade obstruction in the mid or distal esophagus. Dictated and approved by Ed Catalan M.D. on 02/27/2017 at 16:06 X-RAY BARIUM SWALLOW ESOPHAGUS IMPRESSION: Limited study quality due to the dilatation of the patient, but the study does allow assessment for presence of mass lesion or esophageal stricture. There is esophageal dysmotility, but no sign of mass or stricture. Dictated and approved by: Ermias Major M.D. on 03/02/2017 at 13:25 Plan Impression Impression #1 acute on chronic kidney injury number to prerenal azotemia #3 diabetic nephropathy #4 hypertension with hypertensive nephrosclerosis #5 mL daily stage IV Recommendations #1 I am concerned about all the fluids he is currently getting and his limited urine output. I would like to go ahead and try to give him 100 mg of furosemide IV to see if we can augment his urine output and I would like to cut back on his IV fluids. Jakob Bell DO Mar 04, 2017 12:00
[2017-03-04] MEDS: 0.9% Sodium Chloride 250 ML IV SCH (12:05)
--- NOTE | 2017-03-04 18:19 | NUR ---
Diuresis 100 mg IV Lasix given as ordered by Dr Bell. Pt and souse were instruct to contact staff to allow measurement. Pt has been voiding pale yellow urine through out the afternoon. Staff was able to collect 500 mls however pt had several additional voids that were not captured. Brief well soaked x 2 as well as additional void that was flushed. Frequent rounding in place, will continue to monitor.
--- NOTE | 2017-03-04 18:25 | PCM.PNMED ---
Subjective Date of Service Mar 04, 2017 Subjective Patient is examined. I had A long conversation with his today who says that she would like for us to scan his leg to see if his clot is still present and then resume Coumadin or something more expensive to take care of the the clot if it is still there. She also says that she is very distrustful of the healthcare system in general because medications are bad and her was given many serious medications Harmed him. She confides that her daughter is nice lady and they have a good relationship with her but the daughter is has also many health problems and a wheelchair. A phone call made to the daughter was not returned today. Patient's is repeatedly saying "I want him to be alive". She also said that she did not like the discussions she had with the palliative care Patient himself did not say a whole lot, this answered a few questions but the seems to take over any time the question is asked to address the patient. Exam Vital Signs Vital Sign - Last Date Time Temp Pulse Resp B/P Pulse Ox O2 Delivery O2 Flow Rate FiO2 03/04/17 17:50 59 18 119/75 98 Room Air 03/04/17 06:31 35.4 03/01/17 22:56 2.00 Intake and Output 03/03/17 03/03/17 03/04/17 Cumulative From/Thru 15:00 23:00 07:00 02/24/17 16:17 - 03/04/17 06:31 Intake Total 2279 ml 357 ml 69379 ml Output Total 4760 ml Balance 2279 ml 357 ml 7824 ml Intake Oral 1600 ml 0 ml 5124 ml IV Total 679 ml 357 ml 7460 ml Output Urine Total 4760 ml # Voids 3 3 15 # Bowel Movements 0 5 Exam Gen.: No acute distress sitting up eating lunch HEENT: Normocephalic atraumatic Cardiovascular: muffled heart sounds. Respiratory: lungs clear to auscultation bilaterally. Neuro: Mentation appropriate, speech clear but limited Ext: Positive for 1+ pitting edema Psych: Negative for anxiety. IVs and Medications IV Fluids Normal saline 60 mL per hour Medications Reviewed: Medications were reviewed in detail Lab and Diagnostics Result Diagram: 03/04/17 0544 03/04/17 0544 X-Rays, CTs and MRIs X-RAY CHEST IMPRESSION: Small bibasilar pleural effusions, with increased bibasilar compressive atelectasis versus evolving bronchopneumonia. Dictated and approved by: Barron Sheridan M.D. on 02/24/2017 at 17:50 CT BRAIN WITHOUT CONTRAST IMPRESSION: 1. No acute intracranial abnormalities. 2. Nonacute bilateral caudate nuclei lacunar infarcts as before. Dictated and approved by: Barron Sheridan M.D. on 02/24/2017 at 17:46 US BILATERAL DUPLEX DOPPLER IMAGING OF THE CAROTIDS IMPRESSION: 1. Less than 50% bilateral internal carotid artery stenosis. 2. Antegrade vertebral artery flow bilaterally. Dictated and approved by: Rosette Espinoza M.D. on 02/25/2017 at 10:38 Cardiac Echo Impressions Echocardiogram Report The left ventricle is mildly dilated. The ejection fraction is estimated to be 25-30%. There is severe hypokinesis of the mid and distal septum, and akinesis of the septum and posterior wall. The anterior wall is hypokinetic and in apical inferior wall is akinetic. The right ventricle is mildly dilated. There is severe biatrial enlargement. There is moderate to severe mitral regurgitation. The aortic valve is mildly calcified. There is moderate tricuspid regurgitation. The right ventricular systolic pressure is estimated at 75 mmHg assuming a right atrial pressure of 15 mm Hg. Electronically signed by: Luis Cornell on Reading Physician:02/27/2017 03:08 PM Additional Diagnostics X-RAY BARIUM SWALLOW ESOPHAGUS IMPRESSION: Very limited exam showing no evidence of laryngeal penetration or aspiration with thin through thick barium products. Deglutition and initial peristalsis appeared adequate. There is no high-grade obstruction in the mid or distal esophagus. Dictated and approved by Ed Catalan M.D. on 02/27/2017 at 16:06 X-RAY BARIUM SWALLOW ESOPHAGUS IMPRESSION: Limited study quality due to the dilatation of the patient, but the study does allow assessment for presence of mass lesion or esophageal stricture. There is esophageal dysmotility, but no sign of mass or stricture. Dictated and approved by: Ermias Major M.D. 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 Hospital day 6. 1. Acute blood loss anemia and GI bleed most likely secondary to supratherapeutic INR, present on admission. Active - Hemoglobin and hematocrit continuing to improve. No further red blood cell transfusions have been needed. -History of positive stool occult blood one month prior after initiating warfarin therapy for left lower extremity DVT - Gastroenterology has been consulted for likely upper intestinal bleed given history of chronic full dose aspirin, positive stool cold blood at last admission, increased BUN, report of melena, and significant lower hemoglobin than at baseline -The patient's does not wish for any "invasive" procedures such as an upper endoscopy or a colonoscopy, so a barium swallow study was done by Dr. Soares to evaluate dysphagia. The results were limited due to the patient's decreased level of consciousness at the time. Dr. Soares's progress note () suggested a possible repeat barium swallow to work up a possible obstruction and/or neoplasm. Benefits of a repeat are unclear - finding more pathology would warrant further invasive workup, which is, again, contrary to the patient's plans of care. Still, the patient and his are willing to proceed. Barium swallow to be performed today. -Home anticoagulation meds included warfarin and clopidogrel. Dr. Tucker and Dr. Thompson discussed with the patient's Katty the risks and benefits of continuing anticoagulation in light of his deep venous thrombosis and transient ischemic attack history, contrasted with his increasing risk of falls. His understands, and wishes for him to continue on only clopidogrel and aspirin at home upon discharge. - Continue holding all anticoagulation for now, since source of bleeding unknown. -Continue dysphagia diabetic diet - Switched him to by mouth Protonix today 2. Acute on chronic kidney injury, present on admission. Active - Most likely d/t prerenal azotemia - Creatinine and BUN improving - Nephrology consulted, we appreciated their input. Per nephrology, continue IV normal saline intravenously at 60 ml/hr. Monitor fluid status to avoid volume overload secondary to systolic CHF - Avoid nephrotoxic agents - Espino catheter removed yesterday. Assistance at all times when ambulating. - Continue to hold outpatient diuretics including chlorthalidone and torsemide -- One time furosemide IV 100 is given by nephro, they are concerned about UOP -- Consider restarting torsemide back in for diuresis at a lower dose or lasix at a small dose. -- 3. Chronic systolic congestive heart failure, present on admission, active - Ejection fraction of 35-40% from echo done on 01/10/2017 with severe pulmonary hypertension - Recent echo preformed on 02/26/2017 revealed worsening cardiac function with ejection fraction of 25-30%, severe hypokinesis of the mid and distal septum, and akinesis of the septum and posterior wall, severe biatrial enlargement, moderate to severe mitral regurgitation, mildly calcified aortic valve and moderate tricuspid regurgitation - Due to the fact that the patient's is against any additional procedures, cardiology has not been consulted - We will have physical evaluation today in preparation for patient's discharge home within the next day or two 4. Hypotension, present on admission, improved -Blood pressure is within normal limits today -Continue to hold all diuresis and all blood pressure medications - Obtain orthostatic vital signs - Continue physical therapy to assess ambulatory safety. 5. Possible TIA, present on admission, improving -CT scan negative, patient's declines MRI even though patient has MRI compatible pacemaker -Ultrasound of the carotids: Less than 50% bilateral internal carotid artery stenosis. Antegrade vertebral artery flow bilaterally -Continue to monitor - Continue speech therapy 6. Hematoma around pacemaker, chronic, stable -Cardiology has examined and states that this is actually improved from the patient's baseline no further treatment needed just continue to monitor 7. Elevated troponins of uncertain significance, present on admission, active -Most likely stress-induced -Troponins 0.104-->0.100-->0.115 -Cardiology following pacemaker has been interrogated and is working appropriately 8. Recent history of left lower extremity DVT (01/09/17), currently stable -Hold all anticoagulation as patient is currently supratherapeutic and currently bleeding 9. Type II diabetes Controlled with diet. Continue dysphagia diabetic diet. DVT prophylaxis: -hold all medical anticoagulation at this time as patient is supratherapeutic and has a GI bleed Disposition: Patient's is not accepting of comfort as a goal of care, need to have palliative care involved more to make it easier for her to accept some of the natural outcomes of his therapy. When she is able to accept it patient can go home GI Prophylaxis: Proton Pump Inhibitor VTE Prophylaxis: Other (Holding warfarin due to suspected gastrointestinal bleeding) VTE Mechanical Devices: Intermittant Pneumatic CD Resuscitation Status: Limited Interventions Limited Interventions: Compressions, Cardioversion/Defibrillation, BiPAP, Medications and IV Fluid Ann Hayden DO Mar 04, 2017 18:25
[2017-03-04] MEDS: Senna-Docusate 8.6-50 mg Tablet PO PRN (22:14)
[2017-03-05] VITALS (7 sets, daily range): BP systolic 96–140; BP diastolic 55–76; PULSE 60–77; RESP 16–18; O2SAT 93–99
--- NOTE | 2017-03-05 02:11 | NUR ---
activity patient ambulates to bathroom with fww and sba. restates simple directions to her . no pain with ambulation. moves in bed. heels elevated care ongoing.
--- NOTE | 2017-03-05 05:26 | NUR ---
constipation patient ambulated to toilet. sat on toilet 10 min. straining. smear of stool. black, tarry. hard stool observed in the rectum. plan to give additional stool softeners today
[2017-03-05 06:34] LABS: Mean Corpuscular Hemoglobin 28.5 pg (27.0-35.0); Mean Corpuscular Volume 88.7 fL (81-100)
[2017-03-05] MEDS: Pantoprazole 20 mg ER24 Tablet PO SCH (09:22)
--- NOTE | 2017-03-05 11:41 | NUR ---
VTACH Tele reported pt had 8 beats of VT at 0830. Pt is assymptomatic with no s/sx of distress. paged to inform. Called back and [facility] order placed. No other sx/or VT episodes so far in shift. Continuing to monitor and provide care.
--- NOTE | 2017-03-05 14:18 | NUR ---
Wound Care [facility] Patient seen for evaluation of Stage II pressure ulcer to sacrum and skin tear to left arm. Pressure ulcer was present on admission. Left forearm skin tear area measures 4cmW x 4cmL x 0.1cmD with 3 smaller open areas. Wound bed 100% red tissue with minimal bloody drainage. Cleansed with NS. Covered with xeroform and mepilex border. Secured with skin protection sleeve. Sacral pressure ulcer stage II. Open area measures 1cmL x 0.7cmW x less than 0.1cmD with scant serous drainage. Cleansed with NS. Covered with sacral mepilex. Nursing to change dressings q48 hours and PRN soiling. Patient instructed to reposition side to side in bed at least every 2 hours to decrease pressure to wound area on sacrum. Patient and teach back need to turn side to side. reports patient is independent with bed mobility and is turning frequently. Recommend P500 bed and q2 hour turning schedule. Wound care to follow as needed. Addendum: 03/05/17 at 1559 by DANYELL SEXTON Patient currently using CCU CRISTINA bed. Recommend continued use of CCU CRISTINA bed rather than P500.
[2017-03-05] MEDS: 0.9% Sodium Chloride 1,000 ML IV SCH (15:54)
[2017-03-05] MEDS ORDERED: Furosemide 10 mg/mL 2 mL Inj IVPUSH ONE (16:25)
--- NOTE | 2017-03-05 16:33 | PCM.PNNEPH ---
Subjective Date of Service Mar 05, 2017 Subjective The patient is reportedly eating and drinking well. The states that she believes his legs are swelling. The patient does not report any worsening shortness of breath or coughing. Exam Vital Signs Vital Sign - Last Date Time Temp Pulse Resp B/P Pulse Ox O2 Delivery O2 Flow Rate FiO2 03/05/17 15:37 30.3 03/05/17 15:14 61 16 101/60 98 Room Air 03/01/17 22:56 2.00 Intake and Output 03/04/17 03/04/17 03/05/17 Cumulative From/Thru 15:00 23:00 07:00 02/24/17 16:17 - 03/05/17 06:59 Intake Total 850 ml 765 ml 43108 ml Output Total 500 ml 5260 ml Balance 350 ml 765 ml 8939 ml Intake Oral 850 ml 300 ml 6274 ml IV Total 465 ml 7925 ml Output Urine Total 500 ml 5260 ml # Voids 3 3 21 # Bowel Movements 0 0 5 Exam Gen.: Elderly male sitting up clean shaven in no acute distress appearing approximately stated age Eyes: Pupils equal round and reactive to light, extraocular motion intact, anicteric sclera, noninjected conjunctiva HENT: Normocephalic atraumatic, moist mucous membranes, no central cyanosis, oropharynx clear Neck: Supple, trachea midline, no noted JVD or lymphadenopathy Cardiovascular: Regular rate and rhythm no murmurs rubs or gallops noted Lungs: Mild coarse breath sounds in the bases bilaterally, no bronchial or wheezing noted Abdomen: Normoactive bowel sounds, soft, nontender, no organomegaly, tympanic to percussion : Espino in place, urine color is improving is light yellow Extremities: Pulses intact bilaterally at the radial and dorsalis pedis, moderate edema of lower extremities bilaterally without cyanosis or clubbing noted, significant ecchymosis on entirety of left forearm which is improving Skin: Warm and dry, large 13 cm cystic structure at pacemaker insertion site without signs of fluctuance or overlying erythema without nontender on palpation , healing left flank hematoma, mild venous stasis changes in the right lower extremity around the lower tibia with mild darkening and induration Neuro: No focal neurologic deficits, can move all extremities MSK: no swollen or painful joints Psych: Flat affect mild depressed mood, answers questions appropriately with a delayed response time IVs and Medications Medications Reviewed: Medications were reviewed in detail Lab and Diagnostics Result Diagram: 03/05/17 0535 03/05/17 0535 X-Rays, CTs and MRIs X-RAY CHEST IMPRESSION: Small bibasilar pleural effusions, with increased bibasilar compressive atelectasis versus evolving bronchopneumonia. Dictated and approved by: Barron Sheridan M.D. on 02/24/2017 at 17:50 CT BRAIN WITHOUT CONTRAST IMPRESSION: 1. No acute intracranial abnormalities. 2. Nonacute bilateral caudate nuclei lacunar infarcts as before. Dictated and approved by: Barron Sheridan M.D. on 02/24/2017 at 17:46 US BILATERAL DUPLEX DOPPLER IMAGING OF THE CAROTIDS IMPRESSION: 1. Less than 50% bilateral internal carotid artery stenosis. 2. Antegrade vertebral artery flow bilaterally. Dictated and approved by: Rosette Espinoza M.D. on 02/25/2017 at 10:38 Cardiac Echo Impressions Echocardiogram Report The left ventricle is mildly dilated. The ejection fraction is estimated to be 25-30%. There is severe hypokinesis of the mid and distal septum, and akinesis of the septum and posterior wall. The anterior wall is hypokinetic and in apical inferior wall is akinetic. The right ventricle is mildly dilated. There is severe biatrial enlargement. There is moderate to severe mitral regurgitation. The aortic valve is mildly calcified. There is moderate tricuspid regurgitation. The right ventricular systolic pressure is estimated at 75 mmHg assuming a right atrial pressure of 15 mm Hg. Electronically signed by: Luis Cornell on Reading Physician:02/27/2017 03:08 PM Additional Diagnostics X-RAY BARIUM SWALLOW ESOPHAGUS IMPRESSION: Very limited exam showing no evidence of laryngeal penetration or aspiration with thin through thick barium products. Deglutition and initial peristalsis appeared adequate. There is no high-grade obstruction in the mid or distal esophagus. Dictated and approved by Ed Catalan M.D. on 02/27/2017 at 16:06 X-RAY BARIUM SWALLOW ESOPHAGUS IMPRESSION: Limited study quality due to the dilatation of the patient, but the study does allow assessment for presence of mass lesion or esophageal stricture. There is esophageal dysmotility, but no sign of mass or stricture. Dictated and approved by: Ermias Major M.D. 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 CKD is likely secondary to poorly controlled chronic diabetes and hypertension given this patient's reported aversion to seek medical therapies. 1. Acute blood loss anemia, present on admission, resolved 2. Acute kidney injury on chronic kidney disease stage III, present on admission 3. Chronic systolic congestive heart failure (HFrEF), present on admission 4. Left lower extremity deep vein thrombosis, present on admission, chronic 5. Encephalopathy, present on admission, stable 6. Dysphasia, present on admission, stable 7. Gastroesophageal reflux disease, present on admission, chronic 8. chronic Diabetes mellitus type II, present on admission 9. Chronic coronary artery disease, present on admission 10. Chronic hypertension, present on admission Plan: 1. Acute kidney injury on chronic kidney disease stage III, present on admission - baseline Creatinine is likely less than or near 2 but is difficult to assess given presentation in December with Cr 1.7 - Oliguria at admission was likely secondary to prerenal azotemia - discontinue IV fluids normal saline at 60mL/hr - Monitor fluid status to avoid volume overload secondary to systolic CHF - Avoid further nephrotoxic insults by consulting pharmacy if there is a question about medications including no NSAIDs, ANDREW inhibitor's, iodine contrast , vancomycin/Zosyn and Bactrim - Patient given 1 time dose of IV Lasix 100 mg for 08/15/2017 - Initiate single dose IV Lasix 20 mg - Restart outpatient torsemide 20 mg daily 2. Chronic systolic congestive heart failure (HFrEF), present on admission - Patient appeared to be notably dehydrated at admission given low skin turgor sure, oliguric, with significant new anemia - 1 unit of packed RBCs given 02/26/17 - carvedilol 3.125 mg twice a day - discontinue at NS at 60mL/hr 3. Left lower extremity deep vein thrombosis, present on admission, chronic - Hold warfarin therapy given supratherapeutic INR at admission - Hold warfarin therapy given new anemia, elevated BUN, reports of melena CONSISTENT with likely upper GI bleed - Consider obtaining repeat ultrasound imaging of lower extremity to determine need of anticoagulation given significant contraindications described above - Palliative care team is involved to help discuss need for anticoagulation versus contraindications 4. Acute blood loss anemia, present on admission - History of positive stool occult blood one month prior after initiating warfarin therapy for left lower extremity DVT - GI has been consulted for likely upper GI bleed given history of chronic full dose aspirin, positive stool cold blood at last admission, increased BUN, report of melena, and significant lower hemoglobin than at baseline, - Type and cross, transfused 1 unit of packed RBCs (02/26/2017) - The acute blood loss could be secondary to supratherapeutic INR on warfarin the patient and his will likely need significant education on maintaining a steady diet. The patient's reportedly prepares Mediterranean diet like all organic meals from scratch. The patient probably has a significant variation in his vitamin K intake as he likely ingests leafy green salads some days and eats almost nothing possibly on other days. - Barium swallow shows esophageal dysmotility - Hemoglobin is currently stable continue to monitor - Hold warfarin, aspirin and clopidogrel 5. Encephalopathy, present on admission, acute - CT scan of the head was negative for any signs of new recent stroke - Neuro exam showed significant delay but patient was entirely appropriate without focal neurologic deficits - Monitor and avoid BALANCE RECESSER depressant drugs 6. Dysphasia, present on admission, acute - Speech therapies following with current recommendations including initiating puree/DM solids - Gastroenterology consulted - barium swallow showed esophageal dysmotility - Consider ENT referral 7. Gastroesophageal reflux disease, present on admission, chronic - Initiate Protonix 40 mg twice a day - GI following 8. chronic Diabetes mellitus type II, present on admission - Patient normally is able to control his blood glucose with diet and exercise reportedly eating an organic diet - Low Correction scale lispro 9. Chronic coronary artery disease, present on admission - EKG is ordered when necessary - hold aspirin, clopidogrel, atorvastatin given likely GI bleed - May consider restarting Isosorbide Mononitrate when patient's blood pressure improved 10. Chronic hypertension, present on admission - Hold blood pressure medications including hydralazine and chlorthalidone given hypotension at admission - May restart blood pressure medications once this patient returns normotensive to hypertensive - Primary team restarted carvedilol - Monitor Nephrology service will continue to follow this patient thank you for this most interesting consult. Robert Powell DO Mar 05, 2017 16:33 to hypertensive - Primary team restarted carvedilol - Monitor Nephrology service will continue to follow this patient thank you for this most interesting consult. Robert Powell DO Mar 05, 2017 16:33
[2017-03-05] MEDS: Senna-Docusate 8.6-50 mg Tablet PO PRN (17:28)
--- NOTE | 2017-03-05 18:25 | NUR ---
Ambulation Pt up with PT to ambulate 75 ft. Pt tolerated well, goal to ambulate 2x more times today. After pt up to use toilet, plan to ambulate. When assisting pt back into room, pt decided he was not able to tolerate any more activity. No reported SOB, or CP. Noted weakness, pt was slow but steady on feet. Goal to still ambulate later during NOC shift as able to tolerate. Pt has language barrier and communicates through .
[2017-03-06] VITALS (10 sets, daily range): BP systolic 90–111; BP diastolic 59–72; PULSE 60–65; RESP 16–20; O2SAT 95–97
--- NOTE | 2017-03-06 00:30 | PCM.PNMED ---
Subjective Date of Service Mar 06, 2017 Subjective The patient is feeling a little bit better and has no new complaints. Exam Vital Signs Vital Sign - Last Date Time Temp Pulse Resp B/P Pulse Ox O2 Delivery O2 Flow Rate FiO2 03/05/17 22:59 35.4 60 16 109/70 96 Room Air 03/01/17 22:56 2.00 Intake and Output 03/05/17 03/05/17 03/06/17 Cumulative From/Thru 15:00 23:00 07:00 02/24/17 16:17 - 03/05/17 23:22 Intake Total 1375 ml 68917 ml Output Total 300 ml 5560 ml Balance 1075 ml 87581 ml Intake Oral 550 ml 6824 ml IV Total 825 ml 8750 ml Output Urine Total 300 ml 5560 ml # Voids 3 24 # Bowel Movements 1 6 Exam General: The patient is sitting up in a bedside chair in no apparent distress. He is very hard of hearing. HEENT: Head is atraumatic and normocephalic. Eyes: Pupils are equally round and reactive to light and accommodation. Extraocular muscles are intact. Sclera are white, anicteric. Subconjunctival mucosa is pink. Ears and nose are unremarkable. Oropharynx: There is no mucosal lesions, there is no thrush, there is no pharyngitis. Neck: Is supple, there are no nodes, or masses or tenderness. Chest: There are diminished breath sounds bilaterally There are no rales, rhonchi, wheezes or rubs appreciated. Heart: Rate, rhythm is regular. There is no murmur, rub or gallop. Abdomen: Good bowel sounds are present. Abdomen is soft, nontender, no organomegaly or masses were appreciated. Extremities: Are symmetrical and well perfused. There is 2-3+ pitting edema which is symmetrical bilaterally. There is no cellulitis and no rash apparent. Neurologic: There are no focal neurological deficits. Other than diminished hearing, cranial nerves II through XII are intact. There are no sensory or motor deficits. Psychiatric: Patients mood is calm and shows no sign of agitation. Genital: Deferred Rectal: Deferred Lab and Diagnostics Result Diagram: 03/05/17 0535 03/05/1735 Microbiology Blood cultures are negative. MRSA screen is negative. Urine for eosinophils is negative. X-Rays, CTs and MRIs X-RAY CHEST IMPRESSION: Small bibasilar pleural effusions, with increased bibasilar compressive atelectasis versus evolving bronchopneumonia. Dictated and approved by: Barron Sheridan M.D. on 02/24/2017 at 17:50 CT BRAIN WITHOUT CONTRAST IMPRESSION: 1. No acute intracranial abnormalities. 2. Nonacute bilateral caudate nuclei lacunar infarcts as before. Dictated and approved by: Barron Sheridan M.D. on 02/24/2017 at 17:46 US BILATERAL DUPLEX DOPPLER IMAGING OF THE CAROTIDS IMPRESSION: 1. Less than 50% bilateral internal carotid artery stenosis. 2. Antegrade vertebral artery flow bilaterally. Dictated and approved by: Rosette Espinoza M.D. on 02/25/2017 at 10:38 Cardiac Echo Impressions Echocardiogram Report The left ventricle is mildly dilated. The ejection fraction is estimated to be 25-30%. There is severe hypokinesis of the mid and distal septum, and akinesis of the septum and posterior wall. The anterior wall is hypokinetic and in apical inferior wall is akinetic. The right ventricle is mildly dilated. There is severe biatrial enlargement. There is moderate to severe mitral regurgitation. The aortic valve is mildly calcified. There is moderate tricuspid regurgitation. The right ventricular systolic pressure is estimated at 75 mmHg assuming a right atrial pressure of 15 mm Hg. Electronically signed by: Luis Cornell on Reading Physician:02/27/2017 03:08 PM Additional Diagnostics X-RAY BARIUM SWALLOW ESOPHAGUS IMPRESSION: Very limited exam showing no evidence of laryngeal penetration or aspiration with thin through thick barium products. Deglutition and initial peristalsis appeared adequate. There is no high-grade obstruction in the mid or distal esophagus. Dictated and approved by Ed Catalan M.D. on 02/27/2017 at 16:06 X-RAY BARIUM SWALLOW ESOPHAGUS IMPRESSION: Limited study quality due to the dilatation of the patient, but the study does allow assessment for presence of mass lesion or esophageal stricture. There is esophageal dysmotility, but no sign of mass or stricture. Dictated and approved by: Ermias Major M.D. 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 Hospital day 6. 1. Acute blood loss anemia and GI bleed most likely secondary to supratherapeutic INR, present on admission. Active - Hemoglobin and hematocrit continuing to improve. No further red blood cell transfusions have been needed. -History of positive stool occult blood one month prior after initiating warfarin therapy for left lower extremity DVT - Gastroenterology has been consulted for likely upper intestinal bleed given history of chronic full dose aspirin, positive stool cold blood at last admission, increased BUN, report of melena, and significant lower hemoglobin than at baseline -The patient's does not wish for any "invasive" procedures such as an upper endoscopy or a colonoscopy, so a barium swallow study was done by Dr. Soares to evaluate dysphagia. The results were limited due to the patient's decreased level of consciousness at the time. Dr. Soares's progress note () suggested a possible repeat barium swallow to work up a possible obstruction and/or neoplasm. Benefits of a repeat are unclear - finding more pathology would warrant further invasive workup, which is, again, contrary to the patient's plans of care. Still, the patient and his are willing to proceed. Barium swallow to be performed today. -Home anticoagulation meds included warfarin and clopidogrel. Dr. Tucker and Dr. Thompson discussed with the patient's Katty the risks and benefits of continuing anticoagulation in light of his deep venous thrombosis and transient ischemic attack history, contrasted with his increasing risk of falls. His understands, and wishes for him to continue on only clopidogrel and aspirin at home upon discharge. - Continue holding all anticoagulation for now, since source of bleeding unknown. -Continue dysphagia diabetic diet - Switched him to by mouth Protonix today 2. Acute on chronic kidney injury, present on admission. Active - Most likely d/t prerenal azotemia - Creatinine and BUN improving - Nephrology consulted, we appreciated their input. Per nephrology, discontinue IV normal saline intravenously at 60 ml/hr. continue to monitor fluid status. - Avoid nephrotoxic agents - Espino catheter removed. Assistance at all times when ambulating. - Probably has restarted torsemide -- One time furosemide IV 100 was given by nephrology 3. Chronic systolic congestive heart failure, present on admission, active - Ejection fraction of 35-40% from echo done on 01/10/2017 with severe pulmonary hypertension - Recent echo preformed on 02/26/2017 revealed worsening cardiac function with ejection fraction of 25-30%, severe hypokinesis of the mid and distal septum, and akinesis of the septum and posterior wall, severe biatrial enlargement, moderate to severe mitral regurgitation, mildly calcified aortic valve and moderate tricuspid regurgitation - Due to the fact that the patient's is against any additional procedures, cardiology has not been consulted - We will have physical therapy continue to evaluate and treat the patient. 4. Hypotension, present on admission, improved -Blood pressure is within normal limits today -Continue to hold all diuresis and all blood pressure medications - Obtain orthostatic vital signs - Continue physical therapy to assess ambulatory safety. 5. Possible TIA, present on admission, improving -CT scan negative, patient's declines MRI even though patient has MRI compatible pacemaker -Ultrasound of the carotids: Less than 50% bilateral internal carotid artery stenosis. Antegrade vertebral artery flow bilaterally -Continue to monitor - Continue speech therapy 6. Hematoma around pacemaker, chronic, stable -Cardiology has examined and states that this is actually improved from the patient's baseline no further treatment needed just continue to monitor 7. Elevated troponins of uncertain significance, present on admission, active -Most likely stress-induced -Troponins 0.104-->0.100-->0.115 -Cardiology following pacemaker has been interrogated and is working appropriately 8. Recent history of left lower extremity DVT (01/09/17), currently stable -Hold all anticoagulation as patient is currently supratherapeutic and currently bleeding 9. Type II diabetes Controlled with diet. Continue dysphagia diabetic diet. DVT prophylaxis: -hold all medical anticoagulation at this time as patient INR was supratherapeutic and he had a GI bleed Disposition: Patient's is not accepting of comfort as a goal of care, and palliative care has signed off. We will discuss disposition plans with Dr. Bell. Pain Evaluation: Adequate Pain Control GI Prophylaxis: Proton Pump Inhibitor VTE Prophylaxis: Other (Holding warfarin due to suspected gastrointestinal bleeding) VTE Mechanical Devices: Intermittant Pneumatic CD Resuscitation Status: Limited Interventions Limited Interventions: Compressions, Cardioversion/Defibrillation, BiPAP, Medications and IV Fluid Stuart Rothman MD Mar 06, 2017 00:30
--- NOTE | 2017-03-06 06:27 | NUR ---
activity/BM Pt appeared sleepy after dinner. 1-2person SBA when transferring from chair to bed due to sleepiness. pt was able to sleep for few hours. called to use the BSC. able to use the BSC with 1-2 person minimal assist with FWW; more alert and active. pt had large brown BM. at beside.
[2017-03-06] MEDS: Pantoprazole 20 mg ER24 Tablet PO SCH (08:32)
[2017-03-06 09:21] LABS: Platelet Count 75 bil/L (150-400)
[2017-03-06 09:25] LABS: Mean Corpuscular Hemoglobin 28.2 pg (27.0-35.0)
[2017-03-06 09:53] LABS: BASOPHILS % (AUTO) 0 % (0-3); EOSINOPHILS % (AUTO) 1 % (0-5); MONOCYTES % (AUTO) 3 % (4-12); NEUTROPHILS % (AUTO) 68 % (40-74)
[2017-03-06 09:58] LABS: Magnesium 2.2 mg/dL (1.6-2.6)
--- NOTE | 2017-03-06 11:57 | NUR ---
OC Signed @ 1021AM
--- NOTE | 2017-03-06 14:33 | PCM.PNNEPH ---
Subjective Date of Service Mar 06, 2017 Subjective The patient is feeling ok today. His states that he has had 4 bowel movements overnight. The also states that Mr. Walsh is eating ok but that he does not care for the food, given his restrictions with mechanical soft and texture. The patient's legs are still slightly swollen. The is worried about his left arm redness and believes it looks worse today. She was reminded that he had a very large bruise covering his left arm on admission. I discussed this case with Dr. Song Palomares of ENT about a possible evaluation given the patients dysphagia and based off the history and the barium swallow evaluation this appears to be a case for GI only if there is an indication to proceed with a EGD. Exam Vital Signs Vital Sign - Last Date Time Temp Pulse Resp B/P Pulse Ox O2 Delivery O2 Flow Rate FiO2 03/06/17 11:29 61 03/06/17 11:25 Room Air 03/06/17 10:22 35.1 16 98/65 96 03/01/17 22:56 2.00 Intake and Output 03/05/17 03/05/17 03/06/17 Cumulative From/Thru 15:00 23:00 07:00 02/24/17 16:17 - 03/06/17 05:14 Intake Total 1375 ml 436 ml 38422 ml Output Total 300 ml 5560 ml Balance 1075 ml 436 ml 80015 ml Intake Oral 550 ml 436 ml 7260 ml IV Total 825 ml 8750 ml Output Urine Total 300 ml 5560 ml # Voids 3 2 26 # Bowel Movements 1 2 8 Exam Gen.: Elderly male sitting up in no acute distress appearing approximately stated age Eyes: Pupils equal round and reactive to light, extraocular motion intact, anicteric sclera, noninjected conjunctiva HENT: Normocephalic atraumatic, moist mucous membranes, no central cyanosis, oropharynx clear Neck: Supple, trachea midline, no noted JVD or lymphadenopathy Cardiovascular: irregularly irregular rate and rhythm no murmurs rubs or gallops noted Lungs: Mild coarse breath sounds in the bases bilaterally worse in the left base compared to right, no bronchial or wheezing noted Abdomen: Normoactive bowel sounds, soft, nontender, no organomegaly, tympanic to percussion : No pereira in place Extremities: Pulses intact bilaterally at the radial and dorsalis pedis, moderate edema of lower extremities bilaterally without cyanosis or clubbing noted, significant ecchymosis on entirety of left forearm improving with some new ecchymosis changes proximal to the elbow Skin: Warm and dry, large 13 cm cystic structure at pacemaker insertion site without signs of fluctuance or overlying erythema without nontender on palpation , healing left flank hematoma, mild venous stasis changes in the right lower extremity around the lower tibia with mild darkening and induration Neuro: No focal neurologic deficits, can move all extremities MSK: no swollen or painful joints Psych: Flat affect mild depressed mood, answers questions appropriately with a delayed response time Lab and Diagnostics Result Diagram: 03/06/17 0908 03/06/17 0908 Microbiology Blood cultures are negative. MRSA screen is negative. Urine for eosinophils is negative. X-Rays, CTs and MRIs X-RAY CHEST IMPRESSION: Small bibasilar pleural effusions, with increased bibasilar compressive atelectasis versus evolving bronchopneumonia. Dictated and approved by: Barron Sheridan M.D. on 02/24/2017 at 17:50 CT BRAIN WITHOUT CONTRAST IMPRESSION: 1. No acute intracranial abnormalities. 2. Nonacute bilateral caudate nuclei lacunar infarcts as before. Dictated and approved by: Barron Sheridan M.D. on 02/24/2017 at 17:46 US BILATERAL DUPLEX DOPPLER IMAGING OF THE CAROTIDS IMPRESSION: 1. Less than 50% bilateral internal carotid artery stenosis. 2. Antegrade vertebral artery flow bilaterally. Dictated and approved by: Rosette Espinoza M.D. on 02/25/2017 at 10:38 Cardiac Echo Impressions Echocardiogram Report The left ventricle is mildly dilated. The ejection fraction is estimated to be 25-30%. There is severe hypokinesis of the mid and distal septum, and akinesis of the septum and posterior wall. The anterior wall is hypokinetic and in apical inferior wall is akinetic. The right ventricle is mildly dilated. There is severe biatrial enlargement. There is moderate to severe mitral regurgitation. The aortic valve is mildly calcified. There is moderate tricuspid regurgitation. The right ventricular systolic pressure is estimated at 75 mmHg assuming a right atrial pressure of 15 mm Hg. Electronically signed by: Luis Cornell on Reading Physician:02/27/2017 03:08 PM Additional Diagnostics X-RAY BARIUM SWALLOW ESOPHAGUS IMPRESSION: Very limited exam showing no evidence of laryngeal penetration or aspiration with thin through thick barium products. Deglutition and initial peristalsis appeared adequate. There is no high-grade obstruction in the mid or distal esophagus. Dictated and approved by Ed Catalan M.D. on 02/27/2017 at 16:06 X-RAY BARIUM SWALLOW ESOPHAGUS IMPRESSION: Limited study quality due to the dilatation of the patient, but the study does allow assessment for presence of mass lesion or esophageal stricture. There is esophageal dysmotility, but no sign of mass or stricture. Dictated and approved by: Ermias Major M.D. 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 CKD is likely secondary to poorly controlled chronic diabetes and hypertension given this patient's reported aversion to seek medical therapies. 1. Acute blood loss anemia, present on admission, resolved 2. Acute kidney injury on chronic kidney disease stage III, present on admission 3. Chronic systolic congestive heart failure (HFrEF), present on admission 4. Left lower extremity deep vein thrombosis, present on admission, chronic 5. Encephalopathy, present on admission, stable 6. Dysphasia, present on admission, stable 7. Gastroesophageal reflux disease, present on admission, chronic 8. chronic Diabetes mellitus type II, present on admission 9. Chronic coronary artery disease, present on admission 10. Chronic hypertension, present on admission Plan: 1. Acute kidney injury on chronic kidney disease stage III, present on admission - baseline Creatinine is likely less than or near 2 but is difficult to assess given presentation in December with Cr 1.7 - Oliguria at admission was likely secondary to prerenal azotemia - Avoid further nephrotoxic insults by consulting pharmacy if there is a question about medications including no NSAIDs, ANDREW inhibitor's, iodine contrast , vancomycin/Zosyn and Bactrim - Restart outpatient torsemide 20 mg daily - hold all IV fluids and encourage hydration, patient is mildly hypervolemic - restart chlorthalidone when patient's blood pressure tolerates - continue daily monitoring of BUN/Creatinine 2. Chronic systolic congestive heart failure (HFrEF), present on admission - Patient appeared to be notably dehydrated at admission given low skin turgor sure, oliguric, with significant new anemia - 1 unit of packed RBCs given 02/26/17 - carvedilol 3.125 mg twice a day - Restart outpatient torsemide 20 mg daily - hold all IV fluids and encourage hydration, patient is mildly hypervolemic - restart chlorthalidone when patient's blood pressure tolerates 3. Left lower extremity deep vein thrombosis, present on admission, chronic - Hold warfarin therapy given supratherapeutic INR at admission - Hold warfarin therapy given new anemia, elevated BUN, reports of melena CONSISTENT with likely upper GI bleed - Ordered repeat ultrasound imaging of lower extremity to determine need of anticoagulation given significant contraindications described above - Palliative care team is awaiting request to reengage the patient and his as the does not appear to be ready to accept the patient's relatively poor prognosis 4. Acute blood loss anemia, present on admission - History of positive stool occult blood one month prior after initiating warfarin therapy for left lower extremity DVT - GI has been consulted for likely upper GI bleed given history of chronic full dose aspirin, positive stool cold blood at last admission, increased BUN, report of melena, and significant lower hemoglobin than at baseline, - Type and cross, transfused 1 unit of packed RBCs (02/26/2017) - The acute blood loss could be secondary to supratherapeutic INR on warfarin the patient and his will likely need significant education on maintaining a steady diet. The patient's reportedly prepares Mediterranean diet like all organic meals from scratch. The patient probably has a significant variation in his vitamin K intake as he likely ingests leafy green salads some days and eats almost nothing possibly on other days. - Barium swallow shows esophageal dysmotility - Hemoglobin is currently stable continue to monitor - Hold warfarin, aspirin and clopidogrel 5. Encephalopathy, present on admission, acute - CT scan of the head was negative for any signs of new recent stroke - Neuro exam showed significant delay but patient was entirely appropriate without focal neurologic deficits - Monitor and avoid RIB CHOPPER depressant drugs 6. Dysphasia, present on admission, acute - Speech therapies following with current recommendations including initiating puree/DM solids - Gastroenterology consulted, with no new plans since last barium swallow results - barium swallow showed esophageal dysmotility - Case discussed with ENT Song Palomares MD who believes this is a case for GI to determine the need for EGD. 7. Gastroesophageal reflux disease, present on admission, chronic - Initiate Protonix 40 mg twice a day - GI following 8. chronic Diabetes mellitus type II, present on admission - Patient normally is able to control his blood glucose with diet and exercise reportedly eating an organic diet - Low Correction scale lispro 9. Chronic coronary artery disease, present on admission - EKG is ordered when necessary - hold aspirin, clopidogrel, atorvastatin given likely GI bleed - May consider restarting Isosorbide Mononitrate when patient's blood pressure improved 10. Chronic hypertension, present on admission - Hold blood pressure medications including hydralazine and chlorthalidone given hypotension at admission - May restart blood pressure medications once this patient returns normotensive to hypertensive - carvedilol 3.125 mg twice a day - Restart outpatient torsemide 20 mg daily - hold all IV fluids and encourage hydration, patient is mildly hypervolemic - restart chlorthalidone when patient's blood pressure tolerates Nephrology service will continue to follow this patient thank you for this most interesting consult. Robert Powell DO Mar 06, 2017 14:33
--- NOTE | 2017-03-06 14:42 | NUR ---
Skin / edema Patient has multiple areas of bruising and swelling on bilateral arms. Bilateral lower extremities have 2+ pitting edema as well as scattered bruising and flaking skin. Patient and patient's request that patient sit in chair at bedside. Patient encouraged to take breaks and elevate lower legs periodically. insists that patient needs to sit up and stand more. Sacral Mepilex dressing in place and is clean, dry and intact. Left chest pacer placement site is bruised and raised. MD aware. Boarders of bruising marked to monitor size. states that right bicep now has some swelling and bruising. Left mcgee small skin tear dressing changed, no drainage or swelling noted. Left elbow skin tear dressing is CDI. Patient continues to deny pain or discomfort. Bed low and locked, care and frequent rounding ongoing.
--- NOTE | 2017-03-06 15:09 | NUR ---
spiritual care:follow up conversational visit with pt's . pt sitting in chair, drowsy. Pt's shared personal history and tedium of long hospital stay and vulnerability she is experiencing (transportation, feeling that she must stay on site, help with communication, etc.) supportive listening and engaging with her interests and life story.
--- NOTE | 2017-03-06 16:59 | DRSVH ---
PROCEDURE: US VEINOUS LEG DUPLEX UNILATERAL, LEFT INDICATIONS: prior occlusive thrombus TECHNIQUE: Real-time imaging, as well as color and pulse Doppler interrogation, were performed of the lower extr emity deep veins from the inguinal ligament to the popliteal fossa. COMPARISON: None. FINDINGS: The deep veins are normally compressible, and free of intraluminal thrombus. Color and pu lse Doppler demonstrate normal phasic intraluminal flow. There is normal augmentation response to di stal compression maneuver. IMPRESSION: No deep venous thrombosis identified within the left lower extremity. Dictated by: Oscar GOMEZ Interpreted: Devora Ordoñez MD on 03/06/2017 at 16:58 Transcribed by: LEONOR on 03/06/2017 at 16:59 Approved by: Devora Ordoñez M.D. on 03/06/2017 at 22:47
--- NOTE | 2017-03-06 17:06 | NUR ---
Social Work: Continued Discharge Planning D: EMR reviewed. Pt discussed in am rounds. Pt is not medically cleared for discharge. He is in renal failure with labs pending. Pt is currently living at home with his and is open with [facility] for RN PTST. Pt's spouse adamantly declines SNF and states that she wishes to take pt home with [facility]. No additional discharge needs identified. SW will continue to follow. A: Pt who would benefit from and is refusing SNF P: Anticipate pt to discharge home with [facility] for RN PTST. LOCOMOTIVE OPERATOR to continue to follow. ELEAZAR Pineda
--- NOTE | 2017-03-06 23:03 | PCM.PNMED ---
Subjective Date of Service Mar 06, 2017 Subjective Patient was seen ambulating in the hallway and then back into bed he was exhausted from ambulating and did not feel well. He has no other new complaints. His thought that he might want a glass of water and gave him a water bottle however the patient fell asleep with a water bottle in his hand. Exam Vital Signs Vital Sign - Last Date Time Temp Pulse Resp B/P Pulse Ox O2 Delivery O2 Flow Rate FiO2 03/06/17 21:16 35.1 60 18 90/59 95 Room Air 03/01/17 22:56 2.00 Intake and Output 03/05/17 03/05/17 03/06/17 Cumulative From/Thru 15:00 23:00 07:00 02/24/17 16:17 - 03/06/17 05:14 Intake Total 1375 ml 436 ml 86552 ml Output Total 300 ml 5560 ml Balance 1075 ml 436 ml 73751 ml Intake Oral 550 ml 436 ml 7260 ml IV Total 825 ml 8750 ml Output Urine Total 300 ml 5560 ml # Voids 3 2 26 # Bowel Movements 1 2 8 Exam General: The patient was seen and in the hallway and then I followed him in the room where he was helped into bed and within a few minutes was asleep. He stated that he was not feeling well during the walk and wanted to go back to bed and appeared to be quite exhausted. HEENT: Head is atraumatic and normocephalic. Eyes: Pupils are equally round and reactive to light and accommodation. Extraocular muscles are intact. Sclera are white, anicteric. Subconjunctival mucosa is pink. Ears and nose are unremarkable. Oropharynx: There is no mucosal lesions, there is no thrush, there is no pharyngitis. Neck: Is supple, there are no nodes, or masses or tenderness. Chest: There are diminished breath sounds bilaterally There are no rales, rhonchi, wheezes or rubs appreciated. Heart: Rate, rhythm is regular. There is no murmur, rub or gallop. Abdomen: Good bowel sounds are present. Abdomen is soft, nontender, no organomegaly or masses were appreciated. Extremities: Are symmetrical and well perfused. There is 2-3+ pitting edema of all 4 extremities. This is symmetrical bilaterally. There is no cellulitis and no rash apparent. There is some ecchymosis of both the upper extremities. There is no evidence of cellulitis or infection on the extremities. Neurologic: There are no focal neurological deficits. Other than diminished hearing, cranial nerves II through XII are intact. There are no sensory or motor deficits. Psychiatric: Patients mood is calm and shows no sign of agitation. Genital: Deferred Rectal: Deferred Lab and Diagnostics Result Diagram: 03/06/17 0908 03/06/17 0908 Microbiology Blood cultures are negative. MRSA screen is negative. Urine for eosinophils is negative. X-Rays, CTs and MRIs X-RAY CHEST IMPRESSION: Small bibasilar pleural effusions, with increased bibasilar compressive atelectasis versus evolving bronchopneumonia. Dictated and approved by: Barron Sheridan M.D. on 02/24/2017 at 17:50 CT BRAIN WITHOUT CONTRAST IMPRESSION: 1. No acute intracranial abnormalities. 2. Nonacute bilateral caudate nuclei lacunar infarcts as before. Dictated and approved by: Barron Sheridan M.D. on 02/24/2017 at 17:46 US BILATERAL DUPLEX DOPPLER IMAGING OF THE CAROTIDS IMPRESSION: 1. Less than 50% bilateral internal carotid artery stenosis. 2. Antegrade vertebral artery flow bilaterally. Dictated and approved by: Rosette Espinoza M.D. on 02/25/2017 at 10:38 Cardiac Echo Impressions Echocardiogram Report The left ventricle is mildly dilated. The ejection fraction is estimated to be 25-30%. There is severe hypokinesis of the mid and distal septum, and akinesis of the septum and posterior wall. The anterior wall is hypokinetic and in apical inferior wall is akinetic. The right ventricle is mildly dilated. There is severe biatrial enlargement. There is moderate to severe mitral regurgitation. The aortic valve is mildly calcified. There is moderate tricuspid regurgitation. The right ventricular systolic pressure is estimated at 75 mmHg assuming a right atrial pressure of 15 mm Hg. Electronically signed by: Luis Cornell on Reading Physician:02/27/2017 03:08 PM Additional Diagnostics X-RAY BARIUM SWALLOW ESOPHAGUS IMPRESSION: Very limited exam showing no evidence of laryngeal penetration or aspiration with thin through thick barium products. Deglutition and initial peristalsis appeared adequate. There is no high-grade obstruction in the mid or distal esophagus. Dictated and approved by Ed Catalan M.D. on 02/27/2017 at 16:06 X-RAY BARIUM SWALLOW ESOPHAGUS IMPRESSION: Limited study quality due to the dilatation of the patient, but the study does allow assessment for presence of mass lesion or esophageal stricture. There is esophageal dysmotility, but no sign of mass or stricture. Dictated and approved by: Ermias Major M.D. 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 Hospital day 10. 1. Acute blood loss anemia and GI bleed most likely secondary to supratherapeutic INR, present on admission. The bleeding appears to have stopped. - Hemoglobin and hematocrit continuing to improve. No further red blood cell transfusions have been needed. -History of positive stool occult blood one month prior after initiating warfarin therapy for left lower extremity DVT - Gastroenterology has been consulted for likely upper intestinal bleed given history of chronic full dose aspirin, positive stool cold blood at last admission, increased BUN, report of melena, and significant lower hemoglobin than at baseline -The patient's does not wish for any "invasive" procedures such as an upper endoscopy or a colonoscopy, so a barium swallow study was done by Dr. Soares to evaluate dysphagia. The results were limited due to the patient's decreased level of consciousness at the time. Dr. Soares's progress note () suggested a possible repeat barium swallow to work up a possible obstruction and/or neoplasm. Benefits of a repeat are unclear - finding more pathology would warrant further invasive workup, which is, again, contrary to the patient's plans of care. Still, the patient and his are willing to proceed. Barium swallow to be performed on 47 and showed evidence for esophageal dysmotility, but no sign of mass or stricture. -Home anticoagulation meds included warfarin and clopidogrel. Dr. Tucker and Dr. Thompson discussed with the patient's Katty the risks and benefits of continuing anticoagulation in light of his deep venous thrombosis and transient ischemic attack history, contrasted with his increasing risk of falls. His understands, and wishes for him to continue on only clopidogrel and aspirin at home upon discharge. Venous Doppler performed on 03/06/2017 shows. "No deep venous thrombosis identified within the left lower extremity". - Continue holding all anticoagulation for now, since source of bleeding unknown. -Continue dysphagia diabetic diet - Continue oral Protonix. 2. Acute on chronic kidney injury, present on admission. Active - Most likely d/t prerenal azotemia - Creatinine and BUN have stabilized - Nephrology consulted, we appreciated their input. Per nephrology, discontinue IV normal saline intravenously at 60 ml/hr. continue to monitor fluid status. - Avoid nephrotoxic agents - Espino catheter removed. Assistance at all times when ambulating. - Probably has restarted torsemide -- One time furosemide IV 100 was given by nephrology on 03/04/2017. 3. Chronic systolic congestive heart failure, present on admission, active - Ejection fraction of 35-40% from echo done on 01/10/2017 with severe pulmonary hypertension - Recent echo preformed on 02/26/2017 revealed worsening cardiac function with ejection fraction of 25-30%, severe hypokinesis of the mid and distal septum, and akinesis of the septum and posterior wall, severe biatrial enlargement, moderate to severe mitral regurgitation, mildly calcified aortic valve and moderate tricuspid regurgitation - Due to the fact that the patient's is against any additional procedures, cardiology has not been consulted - We will have physical therapy continue to evaluate and treat the patient. 4. Hypotension, present on admission, improved -Blood pressure is within normal limits today -Continue to hold all diuresis and all blood pressure medications - Obtain orthostatic vital signs - Continue physical therapy to assess ambulatory safety. 5. Possible TIA, present on admission, improving -CT scan negative, patient's declines MRI even though patient has MRI compatible pacemaker -Ultrasound of the carotids: Less than 50% bilateral internal carotid artery stenosis. Antegrade vertebral artery flow bilaterally -Continue to monitor - Continue speech therapy 6. Hematoma around pacemaker, chronic, stable -Cardiology has examined and states that this is actually improved from the patient's baseline no further treatment needed just continue to monitor 7. Elevated troponins of uncertain significance, present on admission, active -Most likely stress-induced -Troponins 0.104-->0.100-->0.115 -Cardiology following, pacemaker has been interrogated and is working appropriately 8. Recent history of left lower extremity DVT (01/09/17), currently stable -Hold all anticoagulation as patient is currently supratherapeutic and currently bleeding 9. Type II diabetes Controlled with diet. Continue dysphagia diabetic diet. DVT prophylaxis: -Home anticoagulation meds included warfarin and clopidogrel. Dr. Tucker and Dr. Thompson discussed with the patient's Katty the risks and benefits of continuing anticoagulation in light of his deep venous thrombosis and transient ischemic attack history, contrasted with his increasing risk of falls. His understands, and wishes for him to continue on only clopidogrel and aspirin at home upon discharge. Venous Doppler performed on 03/06/2017 shows. "No deep venous thrombosis identified within the left lower extremity". Disposition: Patient's is not accepting of comfort as a goal of care, and palliative care has signed off. We will discuss disposition plans with Dr. Bell. Pain Evaluation: Adequate Pain Control GI Prophylaxis: Proton Pump Inhibitor VTE Prophylaxis: Other (Holding warfarin due to suspected gastrointestinal bleeding) VTE Mechanical Devices: Intermittant Pneumatic CD Resuscitation Status: Limited Interventions Limited Interventions: Compressions, Cardioversion/Defibrillation, BiPAP, Medications and IV Fluid StephanStuart MD Mar 06, 2017 23:03
[2017-03-07] VITALS (9 sets, daily range): BP systolic 93–119; BP diastolic 59–67; PULSE 55–69; RESP 16–20; O2SAT 96–99
--- NOTE | 2017-03-07 05:32 | NUR ---
Refusal of SCDs/Turns: Pt refused to wear SCDS, despite risk for DVT. Pt also refusing to turn at times. Pt can independently turn in bed, but refused on occasion when prompted by RN. Pt up to the bathroom two times during the night with the walker and SBA.
[2017-03-07 06:40] LABS: BASOPHILS % (AUTO) 0.2 % (0-3); EOSINOPHILS % (AUTO) 1.4 % (0-5); MONOCYTES % (AUTO) 5.3 % (4-12); Mean Corpuscular Hemoglobin 28.6 pg (27.0-35.0); Mean Corpuscular Volume 88.7 fL (81-100); NEUTROPHILS % (AUTO) 62.4 % (40-74); Platelet Count 71 bil/L (150-400)
[2017-03-07 07:05] LABS: Magnesium 2.3 mg/dL (1.6-2.6); Phosphorus 4.9 mg/dL (2.5-4.9)
[2017-03-07] MEDS: Pantoprazole 20 mg ER24 Tablet PO SCH (09:01)
--- NOTE | 2017-03-07 11:46 | PCM.PNNEPH ---
Subjective Date of Service Mar 07, 2017 Subjective The patient has been eating but not a significant portion size and the is concerned that the amount of sugar in his diet is to high. The patient denies any difficulty with urination. The Nurse in the room reports that the patient has not had clear I/O as the patient has been incontinent of urine. The denies any ongoing diarrhea. The couple is aware of the ultrasound results which showed no left lower extremity DVT seen in December. The patient was discussed with the hospitalist Dr. Rothman. Exam Vital Signs Vital Sign - Last Date Time Temp Pulse Resp B/P Pulse Ox O2 Delivery O2 Flow Rate FiO2 03/07/17 08:46 36.5 65 16 107/62 97 Room Air 03/01/17 22:56 2.00 Intake and Output 03/06/17 03/06/17 03/07/17 Cumulative From/Thru 15:00 23:00 07:00 02/24/17 16:17 - 03/07/17 06:54 Intake Total 300 ml 240 ml 95000 ml Output Total 200 ml 250 ml 6010 ml Balance 100 ml -10 ml 59317 ml Intake Oral 300 ml 240 ml 7800 ml IV Total 8750 ml Output Urine Total 200 ml 250 ml 6010 ml # Voids 2 28 # Bowel Movements 1 1 10 Exam Gen.: Elderly male sitting up in no acute distress appearing approximately stated age Eyes: Pupils equal round and reactive to light, extraocular motion intact, anicteric sclera, noninjected conjunctiva HENT: Normocephalic atraumatic, moist mucous membranes, no central cyanosis, oropharynx clear Neck: Supple, trachea midline, no noted JVD or lymphadenopathy Cardiovascular: irregularly irregular rate and rhythm no murmurs rubs or gallops noted Lungs: moderate decreased breath sounds in the right base with course breath sounds in the left base and right mid lung field, no bronchial or wheezing noted Abdomen: Normoactive bowel sounds, soft, nontender, no organomegaly, tympanic to percussion : No pereira in place Extremities: Pulses intact bilaterally at the radial and decreased in the dorsalis pedis bilaterally, moderate edema of lower extremities bilaterally without cyanosis or clubbing noted, significant ecchymosis on entirety of left forearm improving with some new ecchymosis changes proximal to the elbow Skin: Warm and dry, with decreased turgor around the neck, large 13 cm cystic structure at pacemaker insertion site without signs of fluctuance or overlying erythema without nontender on palpation, healing left flank hematoma, mild venous stasis changes in the right lower extremity around the lower tibia with mild darkening and induration Neuro: No focal neurologic deficits, can move all extremities MSK: no swollen or painful joints Psych: Flat affect mild depressed mood, answers questions appropriately with a delayed response time IVs and Medications Medications Reviewed: Medications were reviewed in detail Lab and Diagnostics Result Diagram: 03/07/1761903/07/17619 Microbiology Blood cultures are negative. MRSA screen is negative. Urine for eosinophils is negative. X-Rays, CTs and MRIs X-RAY CHEST IMPRESSION: Small bibasilar pleural effusions, with increased bibasilar compressive atelectasis versus evolving bronchopneumonia. Dictated and approved by: Barron Sheridan M.D. on 02/24/2017 at 17:50 CT BRAIN WITHOUT CONTRAST IMPRESSION: 1. No acute intracranial abnormalities. 2. Nonacute bilateral caudate nuclei lacunar infarcts as before. Dictated and approved by: Barron Sheridan M.D. on 02/24/2017 at 17:46 US BILATERAL DUPLEX DOPPLER IMAGING OF THE CAROTIDS IMPRESSION: 1. Less than 50% bilateral internal carotid artery stenosis. 2. Antegrade vertebral artery flow bilaterally. Dictated and approved by: Rosette Espinoza M.D. on 02/25/2017 at 10:38 Cardiac Echo Impressions Echocardiogram Report The left ventricle is mildly dilated. The ejection fraction is estimated to be 25-30%. There is severe hypokinesis of the mid and distal septum, and akinesis of the septum and posterior wall. The anterior wall is hypokinetic and in apical inferior wall is akinetic. The right ventricle is mildly dilated. There is severe biatrial enlargement. There is moderate to severe mitral regurgitation. The aortic valve is mildly calcified. There is moderate tricuspid regurgitation. The right ventricular systolic pressure is estimated at 75 mmHg assuming a right atrial pressure of 15 mm Hg. Electronically signed by: Luis Cornell on Reading Physician:02/27/2017 03:08 PM Additional Diagnostics X-RAY BARIUM SWALLOW ESOPHAGUS IMPRESSION: Very limited exam showing no evidence of laryngeal penetration or aspiration with thin through thick barium products. Deglutition and initial peristalsis appeared adequate. There is no high-grade obstruction in the mid or distal esophagus. Dictated and approved by Ed Catalan M.D. on 02/27/2017 at 16:06 X-RAY BARIUM SWALLOW ESOPHAGUS IMPRESSION: Limited study quality due to the dilatation of the patient, but the study does allow assessment for presence of mass lesion or esophageal stricture. There is esophageal dysmotility, but no sign of mass or stricture. Dictated and approved by: Ermias Major M.D. on 03/02/2017 at 13:25 US VEINOUS LEG DUPLEX UNILATERAL, LEFT IMPRESSION: No deep venous thrombosis identified within the left lower extremity. Dictated by: Oscar Holder [facility] Interpreted: Devora Ordoñez MD on 03/06/2017 at 16: 58 Approved by: Devora Ordoñez M.D. 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 CKD is likely secondary to poorly controlled chronic diabetes and hypertension given this patient's reported aversion to seek medical therapies. 1. Acute kidney injury on chronic kidney disease stage III, present on admission 2. Chronic systolic congestive heart failure (HFrEF), present on admission 3. Left lower extremity deep vein thrombosis, present on admission, chronic 4. Acute blood loss anemia, present on admission 5. Encephalopathy, present on admission, acute 6. Dysphasia, present on admission, acute 7. Gastroesophageal reflux disease, present on admission, chronic 8. chronic Diabetes mellitus type II, present on admission 9. Chronic coronary artery disease, present on admission 10. Chronic hypertension, present on admission Plan: 1. Acute kidney injury on chronic kidney disease stage III, present on admission - baseline Creatinine is likely less than or near 2 but is difficult to assess given presentation in December with Cr 1.7 - Oliguria at admission was likely secondary to prerenal azotemia - Avoid further nephrotoxic insults by consulting pharmacy if there is a question about medications including no NSAIDs, ANDREW inhibitor's, iodine contrast , vancomycin/Zosyn and Bactrim - hold torsemide 20 mg daily on 03/07 and restart 03/08 - restart half normal saline at 60mL/hr and encourage hydration - restart chlorthalidone when patient's blood pressure tolerates - continue daily monitoring of BUN/Creatinine 2. Chronic systolic congestive heart failure (HFrEF), present on admission - Patient appeared to be notably dehydrated at admission given low skin turgor sure, oliguric, with significant new anemia - 1 unit of packed RBCs given 02/26/17 - carvedilol 3.125 mg twice a day - hold torsemide 20 mg daily on 03/07 and restart 03/08 - restart half normal saline at 60mL/hr and encourage hydration - restart chlorthalidone when patient's blood pressure tolerates 3. Left lower extremity deep vein thrombosis, present on admission, resolved - Hold warfarin therapy given supratherapeutic INR at admission - Hold warfarin therapy given new anemia, elevated BUN, reports of melena CONSISTENT with likely upper GI bleed - repeat ultrasound imaging of lower extremity showed resolution of the DVT 4. Acute blood loss anemia, present on admission - History of positive stool occult blood one month prior after initiating warfarin therapy for left lower extremity DVT - GI has been consulted for likely upper GI bleed given history of chronic full dose aspirin, positive stool cold blood at last admission, increased BUN, report of melena, and significant lower hemoglobin than at baseline, - Type and cross, transfused 1 unit of packed RBCs (02/26/2017) - The acute blood loss could be secondary to supratherapeutic INR on warfarin the patient and his will likely need significant education on maintaining a steady diet. The patient's reportedly prepares Mediterranean diet like all organic meals from scratch. The patient probably has a significant variation in his vitamin K intake as he likely ingests leafy green salads some days and eats almost nothing possibly on other days. - Barium swallow shows esophageal dysmotility - Hemoglobin is currently stable continue to monitor - Hold warfarin, aspirin and clopidogrel 5. Encephalopathy, present on admission, acute - CT scan of the head was negative for any signs of new recent stroke - Neuro exam showed significant delay but patient was entirely appropriate without focal neurologic deficits - Monitor and avoid [facility] depressant drugs 6. Dysphasia, present on admission, acute - Speech therapies following with current recommendations including initiating puree/DM solids - Gastroenterology consulted, with no new plans since last barium swallow results - barium swallow showed esophageal dysmotility - Case discussed with ENT Song Palomares MD 03/06/2017 who believes this is a case for GI to determine the need for EGD. 7. Gastroesophageal reflux disease, present on admission, chronic - Protonix 40 mg twice a day - GI following 8. chronic Diabetes mellitus type II, present on admission - Patient normally is able to control his blood glucose with diet and exercise reportedly eating an organic diet - Low Correction scale lispro 9. Chronic coronary artery disease, present on admission - EKG is ordered when necessary - hold aspirin, clopidogrel, atorvastatin given likely GI bleed - May consider restarting Isosorbide Mononitrate when patient's blood pressure improved 10. Chronic hypertension, present on admission - Hold blood pressure medications including hydralazine and chlorthalidone given hypotension at admission - May restart blood pressure medications once this patient returns normotensive to hypertensive - carvedilol 3.125 mg twice a day - hold torsemide 20 mg daily on 03/07 and restart on 03/07 - restart IV hydration as above - may restart chlorthalidone when patient's blood pressure tolerates Nephrology service will continue to follow this patient thank you for this most interesting consult. Robert Powell DO Mar 07, 2017 11:46
--- NOTE | 2017-03-07 13:19 | NUR ---
NSG to amb pt 2-3x/day with FWW and CGA. PT will continue to see pt daily for mobility progression, HEP and activity tolerance.
--- NOTE | 2017-03-07 15:17 | NUR ---
NUTRITION FOLLOW-UP: ASSESS: 82 YO Male admitted for AMS, increasing fatigue, GI bleed, lethargy, and slurred speech. ST has placed pt on pureed diet with NT liquids and pt has been tolerating this diet well. Nephrology is following for SHMUEL. PO has improved to ~50-100% of meals. PMHX: HTN, SC, CAD, CHF, pulmonary hypertension, T2DM, chronic kidney injury LABS: Reviewed. BUN 119, Cr 2.86, Glu 132, Alb 3.0 MEDS: Reviewed. GI: BM x 1 (03/07) CURRENT WTS: 83.0 kg. admit wt 76.8 kg DIET: Pureed, [place] Thick, Glucerna at Lunch. PO 50-100% EST. NEEDS: SHMUEL Kcals: 2516-1425 kcal/day (25-30 kcal/kg) Pro: 65-80 g/day (0.8-1.0 g/kg) NUTRITION DIAGNOSIS: 1.) Chew/swallow difficulty related to dysphagia and poor dentition as evidence by need for dysphagia mechanical diet w/NT liquids per ST.PERSISTS NUTRITION INTERVENTION: 1.) Continue NT Glucerna on L tray to help supplement PO intake. 2.) Continue diet per ST MONITOR / EVAL: PO intake, labs, weights, GI, nutrition status. Will continue to monitor per moderate nutrition risk guidelines.
--- NOTE | 2017-03-07 16:15 | PCM.PNNEPH ---
Subjective Date of Service Mar 07, 2017 Subjective Patient's renal function continues to worsen. His urine output that has been recorded is about 200 mL. His blood pressure is good however he strongly suspects that he is intravascularly volume depleted. This morning his sodium is 141, potassium 4.7, chloride 105, bicarbonate 17, BUN and creatinine were 19 and 2.86. Exam Vital Signs Vital Sign - Last Date Time Temp Pulse Resp B/P Pulse Ox O2 Delivery O2 Flow Rate FiO2 03/07/17 14:30 35.7 03/07/17 13:49 69 16 93/59 97 Room Air 03/01/17 22:56 2.00 Intake and Output 03/06/17 03/06/17 03/07/17 Cumulative From/Thru 15:00 23:00 07:00 02/24/17 16:17 - 03/07/17 06:54 Intake Total 300 ml 240 ml 55574 ml Output Total 200 ml 250 ml 6010 ml Balance 100 ml -10 ml 13306 ml Intake Oral 300 ml 240 ml 7800 ml IV Total 8750 ml Output Urine Total 200 ml 250 ml 6010 ml # Voids 2 28 # Bowel Movements 1 1 10 Exam Neck is supple without adenopathy, thyromegaly, or jugular venous distention. Lungs showed scattered rhonchi. Heart was irregularly irregular. Abdomen is soft with some diminished bowel sounds. Extremities showed some mild dependent edema in both lower extremities. Skin turgor is quite poor and is no evidence of any rashes. Lab and Diagnostics Result Diagram: 03/07/17 0620 03/07/17 0620 Microbiology Blood cultures are negative. MRSA screen is negative. Urine for eosinophils is negative. X-Rays, CTs and MRIs X-RAY CHEST IMPRESSION: Small bibasilar pleural effusions, with increased bibasilar compressive atelectasis versus evolving bronchopneumonia. Dictated and approved by: Barron Sheridan M.D. on 02/24/2017 at 17:50 CT BRAIN WITHOUT CONTRAST IMPRESSION: 1. No acute intracranial abnormalities. 2. Nonacute bilateral caudate nuclei lacunar infarcts as before. Dictated and approved by: Barron Sheridan M.D. on 02/24/2017 at 17:46 US BILATERAL DUPLEX DOPPLER IMAGING OF THE CAROTIDS IMPRESSION: 1. Less than 50% bilateral internal carotid artery stenosis. 2. Antegrade vertebral artery flow bilaterally. Dictated and approved by: Rosette Espinoza M.D. on 02/25/2017 at 10:38 Cardiac Echo Impressions Echocardiogram Report The left ventricle is mildly dilated. The ejection fraction is estimated to be 25-30%. There is severe hypokinesis of the mid and distal septum, and akinesis of the septum and posterior wall. The anterior wall is hypokinetic and in apical inferior wall is akinetic. The right ventricle is mildly dilated. There is severe biatrial enlargement. There is moderate to severe mitral regurgitation. The aortic valve is mildly calcified. There is moderate tricuspid regurgitation. The right ventricular systolic pressure is estimated at 75 mmHg assuming a right atrial pressure of 15 mm Hg. Electronically signed by: Luis Cornell on Reading Physician:02/27/2017 03:08 PM Additional Diagnostics X-RAY BARIUM SWALLOW ESOPHAGUS IMPRESSION: Very limited exam showing no evidence of laryngeal penetration or aspiration with thin through thick barium products. Deglutition and initial peristalsis appeared adequate. There is no high-grade obstruction in the mid or distal esophagus. Dictated and approved by Ed Catalan M.D. on 02/27/2017 at 16:06 X-RAY BARIUM SWALLOW ESOPHAGUS IMPRESSION: Limited study quality due to the dilatation of the patient, but the study does allow assessment for presence of mass lesion or esophageal stricture. There is esophageal dysmotility, but no sign of mass or stricture. Dictated and approved by: Ermias Major M.D. on 03/02/2017 at 13:25 Plan Impression Impression #1 acute on chronic kidney injury secondary to intravascular volume depletion #2 chronic kidney disease recommendation #1 I would like to hold his diuretics since her some cautious IV hydration. Jakob Bell DO Mar 07, 2017 16:15
--- NOTE | 2017-03-07 18:26 | NUR ---
spiritual care: follow up conversational visit and emotional support to pt's Jaz. She expressed her anxiety and frustration also her sense of discomfort with leaving pt because of his fragility, communication needs and a recent experience involving pacemaker. discussion included troubleshooting for and identifying friends and community volunteers who may be able to offer some assistance.
--- NOTE | 2017-03-07 18:27 | NUR ---
activity, edema, dressing change pt. up in chair for meals; ambulated in hallway with PT and another time with RN. Bilateral lower extremity pitting edema; legs wrapped in wilberto wraps and elevated on pillows when in bed. LFA dressing changed today; quarter sized brown drainage noted on mepilex.
[2017-03-08] VITALS (7 sets, daily range): BP systolic 104–116; BP diastolic 65–78; PULSE 58–65; RESP 16–17; O2SAT 93–96
--- NOTE | 2017-03-08 00:09 | PCM.PNMED ---
Subjective Date of Service Mar 08, 2017 Subjective Patient went on a walk today further than yesterday in the hallway. However, he states he was still feeling ill and was exhausted when he got back to bed. He has no other new complaints. His is still concerned that he has some difficulty swallowing. Exam Vital Signs Vital Sign - Last Date Time Temp Pulse Resp B/P Pulse Ox O2 Delivery O2 Flow Rate FiO2 03/07/17 22:04 Supplement Oxygen 03/07/17 20:14 35.3 55 16 99/63 99 Intake and Output 03/07/17 03/07/17 03/08/17 Cumulative From/Thru 15:00 23:00 07:00 02/24/17 16:17 - 03/07/17 22:04 Intake Total 851 ml 56841 ml Output Total 6010 ml Balance 851 ml 03089 ml Intake Oral 400 ml 8200 ml IV Total 451 ml 9201 ml Output Urine Total 6010 ml # Voids 2 30 # Bowel Movements 10 Exam General: The patient was seen after his walk today and again he was quite exhausted. However he walked further today than he did yesterday. He has no other new complaints. HEENT: Head is atraumatic and normocephalic. Eyes: Pupils are equally round and reactive to light and accommodation. Extraocular muscles are intact. Sclera are white, anicteric. Subconjunctival mucosa is pink. Ears and nose are unremarkable. Oropharynx: There is no mucosal lesions, there is no thrush, there is no pharyngitis. Mucosa is dry. Neck: Is supple, there are no nodes, or masses or tenderness. Chest: There are diminished breath sounds bilaterally There are no rales, rhonchi, wheezes or rubs appreciated. Heart: Rate, rhythm is regular. There is no murmur, rub or gallop. Abdomen: Good bowel sounds are present. Abdomen is soft, nontender, no organomegaly or masses were appreciated. Extremities: Are symmetrical and well perfused. The pitting edema of all 4 extremities has slightly improved. This is symmetrical bilaterally. There is no cellulitis and no rash apparent. There is some ecchymosis of both the upper extremities. There is no evidence of cellulitis or infection on the extremities. Lower extremities are wrapped in Jake wraps. Neurologic: There are no focal neurological deficits. Other than diminished hearing, cranial nerves II through XII are intact. There are no sensory or motor deficits. Psychiatric: Patients mood is calm and shows no sign of agitation. He appears exhausted. Genital: Deferred Rectal: Deferred Lab and Diagnostics Result Diagram: 03/07/1761903/07/17619 Microbiology Blood cultures are negative. MRSA screen is negative. Urine for eosinophils is negative. X-Rays, CTs and MRIs X-RAY CHEST IMPRESSION: Small bibasilar pleural effusions, with increased bibasilar compressive atelectasis versus evolving bronchopneumonia. Dictated and approved by: Barron Sheridan M.D. on 02/24/2017 at 17:50 CT BRAIN WITHOUT CONTRAST IMPRESSION: 1. No acute intracranial abnormalities. 2. Nonacute bilateral caudate nuclei lacunar infarcts as before. Dictated and approved by: Barron Sheridan M.D. on 02/24/2017 at 17:46 US BILATERAL DUPLEX DOPPLER IMAGING OF THE CAROTIDS IMPRESSION: 1. Less than 50% bilateral internal carotid artery stenosis. 2. Antegrade vertebral artery flow bilaterally. Dictated and approved by: Rosette Espinoza M.D. on 02/25/2017 at 10:38 Cardiac Echo Impressions Echocardiogram Report The left ventricle is mildly dilated. The ejection fraction is estimated to be 25-30%. There is severe hypokinesis of the mid and distal septum, and akinesis of the septum and posterior wall. The anterior wall is hypokinetic and in apical inferior wall is akinetic. The right ventricle is mildly dilated. There is severe biatrial enlargement. There is moderate to severe mitral regurgitation. The aortic valve is mildly calcified. There is moderate tricuspid regurgitation. The right ventricular systolic pressure is estimated at 75 mmHg assuming a right atrial pressure of 15 mm Hg. Electronically signed by: Luis Cornell on Reading Physician:02/27/2017 03:08 PM Additional Diagnostics X-RAY BARIUM SWALLOW ESOPHAGUS IMPRESSION: Very limited exam showing no evidence of laryngeal penetration or aspiration with thin through thick barium products. Deglutition and initial peristalsis appeared adequate. There is no high-grade obstruction in the mid or distal esophagus. Dictated and approved by Ed Catalan M.D. on 02/27/2017 at 16:06 X-RAY BARIUM SWALLOW ESOPHAGUS IMPRESSION: Limited study quality due to the dilatation of the patient, but the study does allow assessment for presence of mass lesion or esophageal stricture. There is esophageal dysmotility, but no sign of mass or stricture. Dictated and approved by: Ermias Major M.D. on 03/02/2017 at 13:25 US VEINOUS LEG DUPLEX UNILATERAL, LEFT IMPRESSION: No deep venous thrombosis identified within the left lower extremity. Dictated by: Oscar Holder [facility] Interpreted: Devora Ordoñez MD on 03/06/2017 at 16: 58 Approved by: Devora Ordoñez M.D. 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 Hospital day 10. 1. Acute blood loss anemia and GI bleed most likely secondary to supratherapeutic INR, present on admission. The bleeding appears to have stopped. - Hemoglobin and hematocrit continuing to improve. No further red blood cell transfusions have been needed. -History of positive stool occult blood one month prior after initiating warfarin therapy for left lower extremity DVT - Gastroenterology has been consulted for likely upper intestinal bleed given history of chronic full dose aspirin, positive stool cold blood at last admission, increased BUN, report of melena, and significant lower hemoglobin than at baseline -The patient's does not wish for any "invasive" procedures such as an upper endoscopy or a colonoscopy, so a barium swallow study was done by Dr. Soares to evaluate dysphagia. The results were limited due to the patient's decreased level of consciousness at the time. Dr. Soares's progress note () suggested a possible repeat barium swallow to work up a possible obstruction and/or neoplasm. Barium swallow performed on 2016 and showed evidence for esophageal dysmotility, but no sign of mass or stricture. -Home anticoagulation meds included warfarin and clopidogrel. Dr. Tucker and Dr. Thompson discussed with the patient's Katty the risks and benefits of continuing anticoagulation in light of his deep venous thrombosis and transient ischemic attack history, contrasted with his increasing risk of falls. His understands, and wishes for him to continue on only clopidogrel and aspirin at home upon discharge. Venous Doppler performed on 03/06/2017 shows. "No deep venous thrombosis identified within the left lower extremity". - Continue holding all anticoagulation for now, since source of bleeding unknown. -Continue dysphagia diabetic diet with the patient's would like an ENT consultation. - Continue oral Protonix. 2. Acute on chronic kidney injury, present on admission. Active - Most likely d/t prerenal azotemia - Creatinine and BUN have stabilized - Nephrology consulted, we appreciated their input. Per nephrology recent worsening of renal function likely due to dehydration. Torsemide will be held today and IV fluids are started. - Avoid nephrotoxic agents - Espino catheter removed. Assistance at all times when ambulating. - The torsemide is now on hold -- One time furosemide IV 100 was given by nephrology on 03/04/2017. 3. Chronic systolic congestive heart failure, present on admission, active - Ejection fraction of 35-40% from echo done on 01/10/2017 with severe pulmonary hypertension - Recent echo preformed on 02/26/2017 revealed worsening cardiac function with ejection fraction of 25-30%, severe hypokinesis of the mid and distal septum, and akinesis of the septum and posterior wall, severe biatrial enlargement, moderate to severe mitral regurgitation, mildly calcified aortic valve and moderate tricuspid regurgitation - Due to the fact that the patient's is against any additional procedures, cardiology has not been consulted - We will have physical therapy continue to evaluate and treat the patient. 4. Hypotension, present on admission, improved -Blood pressure is within normal limits today -Continue to hold all diuresis and all blood pressure medications - Obtain orthostatic vital signs - Continue physical therapy to assess ambulatory safety. 5. Possible TIA, present on admission, improving -CT scan negative, patient's declines MRI even though patient has MRI compatible pacemaker -Ultrasound of the carotids: Less than 50% bilateral internal carotid artery stenosis. Antegrade vertebral artery flow bilaterally -Continue to monitor - Continue speech therapy 6. Hematoma around pacemaker, chronic, stable -Cardiology has examined and states that this is actually improved from the patient's baseline no further treatment needed just continue to monitor 7. Elevated troponins of uncertain significance, present on admission, active -Most likely stress-induced -Troponins 0.104-->0.100-->0.115 -Cardiology following, pacemaker has been interrogated and is working appropriately 8. Recent history of left lower extremity DVT (01/09/17), currently stable -Hold all anticoagulation as patient is currently supratherapeutic and currently bleeding 9. Type II diabetes Controlled with diet. Continue dysphagia diabetic diet. DVT prophylaxis: -Home anticoagulation meds included warfarin and clopidogrel. Dr. Tucker and Dr. Thompson discussed with the patient's Katty the risks and benefits of continuing anticoagulation in light of his deep venous thrombosis and transient ischemic attack history, contrasted with his increasing risk of falls. His understands, and wishes for him to continue on only clopidogrel and aspirin at home upon discharge. Venous Doppler performed on 03/06/2017 shows. "No deep venous thrombosis identified within the left lower extremity". Disposition: Patient's is not accepting of comfort as a goal of care, and palliative care has signed off. We will discuss disposition plans with Dr. Bell. Pain Evaluation: Adequate Pain Control GI Prophylaxis: Proton Pump Inhibitor VTE Prophylaxis: Other (Holding warfarin due to suspected gastrointestinal bleeding) VTE Mechanical Devices: Intermittant Pneumatic CD Resuscitation Status: Limited Interventions Limited Interventions: Compressions, Cardioversion/Defibrillation, BiPAP, Medications and IV Fluid MadisonStuart rodriguez MD Mar 08, 2017 00:09
[2017-03-08 06:56] LABS: BASOPHILS % (AUTO) 0.1 % (0-3); EOSINOPHILS % (AUTO) 1.5 % (0-5); Mean Corpuscular Hemoglobin 28.1 pg (27.0-35.0); Mean Corpuscular Volume 87.1 fL (81-100); NEUTROPHILS % (AUTO) 60.9 % (40-74); Platelet Count 70 bil/L (150-400)
[2017-03-08] MEDS: Pantoprazole 20 mg ER24 Tablet PO SCH (08:57)
--- NOTE | 2017-03-08 13:51 | PCM.PNNEPH ---
Robert Powell DO 03/08/17 1351: Subjective Date of Service Mar 08, 2017 Subjective The patient continues to urinate without reported issue why he or his . The is extremely concerned because his creatinine numbers continue to rise. The patient denies any shortness of breath or cough. The patient's legs continued to be swollen after the Jake wrap placement. The patient was lying in bed with his legs up more yesterday per his . The patient was drinking water but denies feeling excessively thirsty. Exam Vital Signs Vital Sign - Last Date Time Temp Pulse Resp B/P Pulse Ox O2 Delivery O2 Flow Rate FiO2 03/08/17 10:23 36.1 65 17 110/65 94 Room Air Intake and Output 03/07/17 03/07/17 03/08/17 Cumulative From/Thru 14:59 22:59 06:59 02/24/17 16:17 - 03/08/17 06:44 Intake Total 851 ml 688 ml 89526 ml Output Total 6010 ml Balance 851 ml 688 ml 36897 ml Intake Oral 400 ml 8200 ml IV Total 451 ml 688 ml 9889 ml Output Urine Total 6010 ml # Voids 2 30 # Bowel Movements 10 Exam Gen.: Elderly male sitting up in no acute distress appearing approximately stated age Eyes: Pupils equal round and reactive to light, extraocular motion intact, anicteric sclera, noninjected conjunctiva HENT: Normocephalic atraumatic, moist mucous membranes, no central cyanosis, oropharynx clear Neck: Supple, trachea midline, no noted JVD or lymphadenopathy Cardiovascular: regularly regular rate and rhythm no murmurs rubs or gallops noted Lungs: clear breath sounds bilaterally with good air movement which is improved from days prior, no bronchial or wheezing noted Abdomen: Normoactive bowel sounds, soft, nontender, no organomegaly, tympanic to percussion : No pereira in place Extremities: Pulses intact bilaterally at the radial and decreased in the dorsalis pedis bilaterally, moderate edema of lower extremities bilaterally without cyanosis or clubbing noted, significant ecchymosis on entirety of left forearm improving with some new ecchymosis changes proximal to the elbow Skin: Warm and dry, with decreased turgor around the neck, large 13 cm cystic structure at pacemaker insertion site without signs of fluctuance or overlying erythema without nontender on palpation, healing left flank hematoma, mild venous stasis changes in the right lower extremity around the lower tibia with mild darkening and induration Neuro: No focal neurologic deficits, can move all extremities MSK: no swollen or painful joints Psych: Flat affect mild depressed mood, answers questions appropriately with a delayed response time Lab and Diagnostics Result Diagram: 03/08/1751903/08/17519 Microbiology Blood cultures are negative. MRSA screen is negative. Urine for eosinophils is negative. X-Rays, CTs and MRIs X-RAY CHEST IMPRESSION: Small bibasilar pleural effusions, with increased bibasilar compressive atelectasis versus evolving bronchopneumonia. Dictated and approved by: Barron Sheridan M.D. on 02/24/2017 at 17:50 CT BRAIN WITHOUT CONTRAST IMPRESSION: 1. No acute intracranial abnormalities. 2. Nonacute bilateral caudate nuclei lacunar infarcts as before. Dictated and approved by: Barron Sheridan M.D. on 02/24/2017 at 17:46 US BILATERAL DUPLEX DOPPLER IMAGING OF THE CAROTIDS IMPRESSION: 1. Less than 50% bilateral internal carotid artery stenosis. 2. Antegrade vertebral artery flow bilaterally. Dictated and approved by: Rosette Espinoza M.D. on 02/25/2017 at 10:38 Cardiac Echo Impressions Echocardiogram Report The left ventricle is mildly dilated. The ejection fraction is estimated to be 25-30%. There is severe hypokinesis of the mid and distal septum, and akinesis of the septum and posterior wall. The anterior wall is hypokinetic and in apical inferior wall is akinetic. The right ventricle is mildly dilated. There is severe biatrial enlargement. There is moderate to severe mitral regurgitation. The aortic valve is mildly calcified. There is moderate tricuspid regurgitation. The right ventricular systolic pressure is estimated at 75 mmHg assuming a right atrial pressure of 15 mm Hg. Electronically signed by: Luis Cornell on Reading Physician:02/27/2017 03:08 PM Additional Diagnostics X-RAY BARIUM SWALLOW ESOPHAGUS IMPRESSION: Very limited exam showing no evidence of laryngeal penetration or aspiration with thin through thick barium products. Deglutition and initial peristalsis appeared adequate. There is no high-grade obstruction in the mid or distal esophagus. Dictated and approved by Ed Catalan M.D. on 02/27/2017 at 16:06 X-RAY BARIUM SWALLOW ESOPHAGUS IMPRESSION: Limited study quality due to the dilatation of the patient, but the study does allow assessment for presence of mass lesion or esophageal stricture. There is esophageal dysmotility, but no sign of mass or stricture. Dictated and approved by: Ermias Major M.D. on 03/02/2017 at 13:25 US VEINOUS LEG DUPLEX UNILATERAL, LEFT IMPRESSION: No deep venous thrombosis identified within the left lower extremity. Dictated by: Oscar JOHNSON Interpreted: Devora Ordoñez MD on 03/06/2017 at 16: 58 Approved by: Devora Ordoñez M.D. 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 CKD is likely secondary to poorly controlled chronic diabetes and hypertension given this patient's reported aversion to seek medical therapies. 1. Acute kidney injury on chronic kidney disease stage III, present on admission 2. Chronic systolic congestive heart failure (HFrEF), present on admission 3. Left lower extremity deep vein thrombosis, present on admission, chronic 4. Acute blood loss anemia, present on admission 5. Encephalopathy, present on admission, acute 6. Dysphasia, present on admission, acute 7. Gastroesophageal reflux disease, present on admission, chronic 8. chronic Diabetes mellitus type II, present on admission 9. Chronic coronary artery disease, present on admission 10. Chronic hypertension, present on admission Plan: 1. Acute kidney injury on chronic kidney disease stage III, present on admission - baseline Creatinine is likely less than or near 2 but is difficult to assess given presentation in December with Cr 1.7 - Oliguria at admission was likely secondary to prerenal azotemia - Avoid further nephrotoxic insults by consulting pharmacy if there is a question about medications including no NSAIDs, JAKE inhibitor's, iodine contrast , vancomycin/Zosyn and Bactrim - hold torsemide 20 mg daily on 03/08 and may restart 03/09 - restart half normal saline at 60mL/hr and encourage hydration - restart chlorthalidone when patient's blood pressure tolerates - continue daily monitoring of BUN/Creatinine 2. Chronic systolic congestive heart failure (HFrEF), present on admission - Patient appeared to be notably dehydrated at admission given low skin turgor sure, oliguric, with significant new anemia - 1 unit of packed RBCs given 02/26/17 - carvedilol 3.125 mg twice a day - hold torsemide 20 mg daily on 03/08 and march restart 03/09 - restart half normal saline at 60mL/hr and encourage hydration - restart chlorthalidone when patient's blood pressure tolerates 3. Left lower extremity deep vein thrombosis, present on admission, resolved - Hold warfarin therapy given supratherapeutic INR at admission - Hold warfarin therapy given new anemia, elevated BUN, reports of melena CONSISTENT with likely upper GI bleed - repeat ultrasound imaging of lower extremity showed resolution of the DVT - GI will not preform EGD for bleed discussed sperately below 4. Acute blood loss anemia, present on admission - History of positive stool occult blood one month prior after initiating warfarin therapy for left lower extremity DVT - GI has been consulted for likely upper GI bleed given history of chronic full dose aspirin, positive stool cold blood at last admission, increased BUN, report of melena, and significant lower hemoglobin than at baseline, - Type and cross, transfused 1 unit of packed RBCs (02/26/2017) - The acute blood loss could be secondary to supratherapeutic INR on warfarin the patient and his will likely need significant education on maintaining a steady diet. The patient's reportedly prepares Mediterranean diet like all organic meals from scratch. The patient probably has a significant variation in his vitamin K intake as he likely ingests leafy green salads some days and eats almost nothing possibly on other days. - Barium swallow shows esophageal dysmotility - Hemoglobin is currently stable continue to monitor - Hold warfarin, aspirin and clopidogrel - GI has no plans for EGD during inpatient stay, this was discussed with the GI resident Kellie Marr 03/[address] Arriaga 5. Encephalopathy, present on admission, acute - CT scan of the head was negative for any signs of new recent stroke - Neuro exam showed significant delay but patient was entirely appropriate without focal neurologic deficits - Monitor and avoid [employer] depressant drugs 6. Dysphasia, present on admission, acute - Speech therapies following with current recommendations including initiating puree/DM solids - Gastroenterology consulted, with no new plans since last barium swallow results - barium swallow showed esophageal dysmotility - Case discussed with ENT Song Palomares MD 03/06/2017 who believes this is a case for GI to determine the need for EGD. - GI has no plans for EGD during inpatient stay, this was discussed with the GI resident Kellie Marr on 03/[address] Arriaga 7. Gastroesophageal reflux disease, present on admission, chronic - Protonix 20 mg daily - increased BUN consistent with possible GI bleed but consider discontinuing Protonix given likely AIN risk - GI following 8. chronic Diabetes mellitus type II, present on admission - Patient normally is able to control his blood glucose with diet and exercise reportedly eating an organic diet - Low Correction scale lispro 9. Chronic coronary artery disease, present on admission - EKG is ordered when necessary - hold aspirin, clopidogrel, atorvastatin given likely GI bleed - May consider restarting Isosorbide Mononitrate when patient's blood pressure improved 10. Chronic hypertension, present on admission - Hold blood pressure medications including hydralazine and chlorthalidone given hypotension at admission - May restart blood pressure medications once this patient returns normotensive to hypertensive - carvedilol 3.125 mg twice a day - hold torsemide 20 mg daily on 03/08 and restart on 03/09 - restart IV hydration as above - may restart chlorthalidone when patient's blood pressure tolerates Nephrology service will continue to follow this patient thank you for this most interesting consult. Jakob Bell DO 03/08/17 1648: Exam Lab and Diagnostics Result Diagram: 03/08/1751903/08/17519 Plan Plan: The patient was seen with Dr. Dhaliwal'max in the findings. I agree with what is detailed above. We will continue to do cautious hydration and await ENT evaluation. Robert Powell DO Mar 08, 2017 13:51 Jakob Bell DO Mar 08, 2017 16:48
--- NOTE | 2017-03-08 15:53 | NUR ---
OC Signed @ 8274 AM
--- NOTE | 2017-03-08 23:58 | PCM.PNMED ---
Subjective Date of Service Mar 08, 2017 Subjective The patient is sitting up in a bedside chair after taking a walk today. He looks much more alert and more energetic than he did over the last 48 hours. He has no new complaints and states that he does feel better. Exam Vital Signs Vital Sign - Last Date Time Temp Pulse Resp B/P Pulse Ox O2 Delivery O2 Flow Rate FiO2 03/08/17 21:50 34.7 60 16 116/78 96 Room Air Intake and Output 03/07/17 03/07/17 03/08/17 Cumulative From/Thru 15:00 23:00 07:00 02/24/17 16:17 - 03/08/17 06:44 Intake Total 851 ml 688 ml 45223 ml Output Total 6010 ml Balance 851 ml 688 ml 70082 ml Intake Oral 400 ml 8200 ml IV Total 451 ml 688 ml 9889 ml Output Urine Total 6010 ml # Voids 2 30 # Bowel Movements 10 Exam General: The patient appears much more energetic and is sitting up in a bedside chair awake and alert and more responsive today, even after his walk. HEENT: Head is atraumatic and normocephalic. Eyes: Pupils are equally round and reactive to light and accommodation. Extraocular muscles are intact. Sclera are white, anicteric. Subconjunctival mucosa is pink. Ears and nose are unremarkable. Oropharynx: There is no mucosal lesions, there is no thrush, there is no pharyngitis. Mucosa is dry. Neck: Is supple, there are no nodes, or masses or tenderness. Chest: There are diminished breath sounds bilaterally. Overall the lungs sound clear There are no rales, rhonchi, wheezes or rubs appreciated. Heart: Rate, rhythm is regular. There is no murmur, rub or gallop. Abdomen: Good bowel sounds are present. Abdomen is soft, nontender, no organomegaly or masses were appreciated. Extremities: Are symmetrical and well perfused. The pitting edema of all 4 extremities has slightly improved. This is symmetrical bilaterally. There is no cellulitis and no rash apparent. There is some ecchymosis of both the upper extremities. There is no evidence of cellulitis or infection on the extremities. Lower extremities are wrapped in Jake wraps. Neurologic: There are no focal neurological deficits. Other than diminished hearing, cranial nerves II through XII are intact. There are no sensory or motor deficits. Psychiatric: Patients mood is calm and shows no sign of agitation. He appears exhausted. Genital: Deferred Rectal: Deferred Lab and Diagnostics Result Diagram: 03/08/1751903/08/17519 Microbiology Blood cultures are negative. MRSA screen is negative. Urine for eosinophils is negative. X-Rays, CTs and MRIs X-RAY CHEST IMPRESSION: Small bibasilar pleural effusions, with increased bibasilar compressive atelectasis versus evolving bronchopneumonia. Dictated and approved by: Barron Sheridan M.D. on 02/24/2017 at 17:50 CT BRAIN WITHOUT CONTRAST IMPRESSION: 1. No acute intracranial abnormalities. 2. Nonacute bilateral caudate nuclei lacunar infarcts as before. Dictated and approved by: Barron Sheridan M.D. on 02/24/2017 at 17:46 US BILATERAL DUPLEX DOPPLER IMAGING OF THE CAROTIDS IMPRESSION: 1. Less than 50% bilateral internal carotid artery stenosis. 2. Antegrade vertebral artery flow bilaterally. Dictated and approved by: Rosette Espinoza M.D. on 02/25/2017 at 10:38 Cardiac Echo Impressions Echocardiogram Report The left ventricle is mildly dilated. The ejection fraction is estimated to be 25-30%. There is severe hypokinesis of the mid and distal septum, and akinesis of the septum and posterior wall. The anterior wall is hypokinetic and in apical inferior wall is akinetic. The right ventricle is mildly dilated. There is severe biatrial enlargement. There is moderate to severe mitral regurgitation. The aortic valve is mildly calcified. There is moderate tricuspid regurgitation. The right ventricular systolic pressure is estimated at 75 mmHg assuming a right atrial pressure of 15 mm Hg. Electronically signed by: Luis Cornell on Reading Physician:02/27/2017 03:08 PM Additional Diagnostics X-RAY BARIUM SWALLOW ESOPHAGUS IMPRESSION: Very limited exam showing no evidence of laryngeal penetration or aspiration with thin through thick barium products. Deglutition and initial peristalsis appeared adequate. There is no high-grade obstruction in the mid or distal esophagus. Dictated and approved by Ed Catalan M.D. on 02/27/2017 at 16:06 X-RAY BARIUM SWALLOW ESOPHAGUS IMPRESSION: Limited study quality due to the dilatation of the patient, but the study does allow assessment for presence of mass lesion or esophageal stricture. There is esophageal dysmotility, but no sign of mass or stricture. Dictated and approved by: Ermias Major M.D. on 03/02/2017 at 13:25 US VEINOUS LEG DUPLEX UNILATERAL, LEFT IMPRESSION: No deep venous thrombosis identified within the left lower extremity. Dictated by: Oscar Holder [facility] Interpreted: Devora Ordoñez MD on 03/06/2017 at 16: 58 Approved by: Devora Ordoñez M.D. 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 Hospital day 10. 1. Acute blood loss anemia and GI bleed most likely secondary to supratherapeutic INR, present on admission. The bleeding appears to have stopped. - Hemoglobin and hematocrit continuing to improve. No further red blood cell transfusions have been needed. -History of positive stool occult blood one month prior after initiating warfarin therapy for left lower extremity DVT - Gastroenterology has been consulted for likely upper intestinal bleed given history of chronic full dose aspirin, positive stool cold blood at last admission, increased BUN, report of melena, and significant lower hemoglobin than at baseline -The patient's does not wish for any "invasive" procedures such as an upper endoscopy or a colonoscopy, so a barium swallow study was done by Dr. Soares to evaluate dysphagia. The results were limited due to the patient's decreased level of consciousness at the time. Dr. Soares's progress note () suggested a possible repeat barium swallow to work up a possible obstruction and/or neoplasm. Barium swallow performed on 2016 and showed evidence for esophageal dysmotility, but no sign of mass or stricture. -Home anticoagulation meds included warfarin and clopidogrel. Dr. Tucker and Dr. Thompson discussed with the patient's Katty the risks and benefits of continuing anticoagulation in light of his deep venous thrombosis and transient ischemic attack history, contrasted with his increasing risk of falls. His understands, and wishes for him to continue on only clopidogrel and aspirin at home upon discharge. Venous Doppler performed on 03/06/2017 shows. "No deep venous thrombosis identified within the left lower extremity". - Continue holding all anticoagulation for now, since source of bleeding unknown. -Continue dysphagia diabetic diet with the patient's would like an ENT consultation. Therefore, I contacted Dr. Song Burgos who agreed to see the patient today in consultation. - Continue oral Protonix. 2. Acute on chronic kidney injury, present on admission. Active - Most likely due to prerenal azotemia - Creatinine and BUN have stabilized - Nephrology consulted, we appreciated their input. Per nephrology recent worsening of renal function likely due to dehydration. Torsemide will be held again today and IV fluids are continued. - Avoid nephrotoxic agents - Espino catheter removed. Assistance at all times when ambulating. - The torsemide is now on hold -- One time furosemide IV 100 was given by nephrology on 03/04/2017. 3. Chronic systolic congestive heart failure, present on admission, active - Ejection fraction of 35-40% from echo done on 01/10/2017 with severe pulmonary hypertension - Recent echo preformed on 02/26/2017 revealed worsening cardiac function with ejection fraction of 25-30%, severe hypokinesis of the mid and distal septum, and akinesis of the septum and posterior wall, severe biatrial enlargement, moderate to severe mitral regurgitation, mildly calcified aortic valve and moderate tricuspid regurgitation - Due to the fact that the patient's is against any additional procedures, cardiology has not been consulted - We will have physical therapy continue to evaluate and treat the patient. 4. Hypotension, present on admission, improved -Blood pressure is within normal limits today -Continue to hold all diuresis and all blood pressure medications - Obtain orthostatic vital signs - Continue physical therapy to assess ambulatory safety. 5. Possible TIA, present on admission, improving -CT scan negative, patient's declines MRI even though patient has MRI compatible pacemaker -Ultrasound of the carotids: Less than 50% bilateral internal carotid artery stenosis. Antegrade vertebral artery flow bilaterally -Continue to monitor - Continue speech therapy 6. Hematoma around pacemaker, chronic, stable -Cardiology has examined and states that this is actually improved from the patient's baseline no further treatment needed just continue to monitor 7. Elevated troponins of uncertain significance, present on admission, active -Most likely stress-induced -Troponins 0.104-->0.100-->0.115 -Cardiology following, pacemaker has been interrogated and is working appropriately 8. Recent history of left lower extremity DVT (01/09/17), currently stable -Hold all anticoagulation as patient is currently supratherapeutic and currently bleeding 9. Type II diabetes Controlled with diet. Continue dysphagia diabetic diet. DVT prophylaxis: -Home anticoagulation meds included warfarin and clopidogrel. Dr. Tucker and Dr. Thompson discussed with the patient's Katty the risks and benefits of continuing anticoagulation in light of his deep venous thrombosis and transient ischemic attack history, contrasted with his increasing risk of falls. His understands, and wishes for him to continue on only clopidogrel and aspirin at home upon discharge. Venous Doppler performed on 03/06/2017 shows. "No deep venous thrombosis identified within the left lower extremity". Disposition: Patient's is not accepting of comfort as a goal of care, and palliative care has signed off. We will discuss disposition plans with Dr. Bell. Pain Evaluation: Adequate Pain Control GI Prophylaxis: Proton Pump Inhibitor VTE Prophylaxis: Other (Holding warfarin due to suspected gastrointestinal bleeding) VTE Mechanical Devices: Intermittant Pneumatic CD Resuscitation Status: Limited Interventions Limited Interventions: Compressions, Cardioversion/Defibrillation, BiPAP, Medications and IV Fluid Stuart Rothman MD Mar 08, 2017 23:58
[2017-03-09] VITALS (8 sets, daily range): BP systolic 101–114; BP diastolic 61–73; PULSE 57–66; RESP 18–24; O2SAT 97–100
--- NOTE | 2017-03-09 00:39 | CONS ---
[address] [address] CONSULTATION REPORT PATIENT: ALISA TERRAZAS : 1935 MR#: [id number] ADMIT: 02/24/2017 JOB ID: [id number] DATE OF SERVICE: HISTORY OF PRESENT ILLNESS: The patient is an 82-year-old male who has been in the hospital over the last 13 days. He has significant medical problems and is currently experiencing renal failure. He has had difficulty with dysphagia, as well as speaking and having hoarseness. I am here to visualize his larynx and hypopharynx. In the presence of his , and after explaining the procedure, we sprayed topical Afrin and 10% Xylocaine into both sides of his nose, and then advanced the fiberoptic scope intranasally. Hypopharyngeal examination shows minimal erythema of the arytenoids bilaterally. He has good vocal cord movement without sign of hypopharyngeal masses or growths. His vocal cords may be mildly thickened. IMPRESSION: Is that of mildly thickened vocal cords possibly secondary to reflux disease. No other significant disease found.
[2017-03-09] MEDS ORDERED: Furosemide 10 mg/mL 4 mL Inj IVPUSH ONE (06:10)
[2017-03-09 06:13] LABS: BASOPHILS % (AUTO) 0.3 % (0-3); EOSINOPHILS % (AUTO) 1.4 % (0-5); MONOCYTES % (AUTO) 6.4 % (4-12); Mean Corpuscular Hemoglobin 27.9 pg (27.0-35.0); Mean Corpuscular Volume 85.8 fL (81-100); NEUTROPHILS % (AUTO) 59.4 % (40-74); Platelet Count 69 bil/L (150-400)
--- NOTE | 2017-03-09 06:28 | NUR ---
Respiratory Pt breathing heavier per pt's and pt restless in bed this shift. Crackles noted in left lower lobe. Oxygen sat 97% on RA. Pt has bilateral pitting edema to legs, feet, and ankles. trace edema to bilateral arms with L>R. Pt incontinent of urine in brief. IV fluids stopped. paged. Orders received for chest X-ray. Will continue to monitor pt.
[2017-03-09] MEDS: Pantoprazole 20 mg ER24 Tablet PO SCH (07:59)
--- NOTE | 2017-03-09 10:05 | NUR ---
Meds Pt's requested to speak with Dr Ray MD was called and notified of request at this time.
--- NOTE | 2017-03-09 11:18 | DRSVH ---
PROCEDURE: X-RAY CHEST ONE VIEW, PORTABLE ([id number]) INDICATIONS: SHORTNESS OF BREATH TECHNIQUE: One view of the chest was acquired. COMPARISON: [facility], CR, XR CHEST 1VW (PORTABLE), 02/24/2017, 16:33. FINDINGS: Surgical changes and devices: Stable position of left chest cardiac pacemaker. Lungs and pleura: Slight interval decrease in the mid/basilar airspace opacities and persistent small effusions present. Mediastinum: Mediastinal contours appear normal. Heart size is normal. Bones and chest wall: No suspicious bony lesions. Overlying soft tissues appear unremarkable. IMPRESSION: Bibasilar pneumonia and small pleural effusion slightly decreased from prior exam. Dictated by: Oscar Holder RRA Interpreted: Devora Ordoñez MD on 03/09/2017 at 11:17 Transcribed by: LEONOR on 03/09/2017 at 11:18 Approved by: Devora Ordoñez M.D. on 03/09/2017 at 15:50
--- NOTE | 2017-03-09 13:30 | NUR ---
Social Work: Continued d/c planning Data: Pt is on day 13 of hospitalization. DRYWALL FINISHER informed by spiritual support that pt and spouse may be open to talking with the Palliative team. DRYWALL FINISHER notified ELEAZAR Mckinney
--- NOTE | 2017-03-09 13:39 | NUR ---
spiritual care:follow up lengthy conversational visit. pt able to indicate comfort level for repositioning in bed/chair. Pt's responding to news from Dr. Bell about limited options for continued medical interventions re: kidney. Palliative and hospice services discussed. Jaz expressed discouragement, fear and weariness as she processes news. Couple moved from [place] fairly recently and have few social connections here. Encouraged Jaz to reach out to dtr and [place] friends. prajyoti, following. Addendum: 03/09/17 at 1740 by ALEX LEAVITT CM follow up visit--check in. Jaz reflected more about her thoughts through various medical/friend conversations today. She said she cannot contact dtr presently because of dtr's phone issue. She said she did not get home today as planned because she was anxious about pt's condition during her absence. supportive listening.
--- NOTE | 2017-03-09 15:34 | PCM.PNNEPH ---
Subjective Date of Service Mar 09, 2017 Subjective The patient's overall condition continues to worsen. He has had some respiratory difficulties requiring discontinuation of the IV hydration. His BUN and creatinine continued to rise and this morning was 127 and 2.95 respectively. I have spoken at length with the patient and his about the limited options in the care of this patient. He has what appears to be now end- stage cardiorenal syndrome for which we have no further treatment recommendations. In the past the patient and his have agreed that dialysis is not an option as I do not feel that there is any tangible short- term or long-term benefits and would merely prolong suffering. Despite my saundra discussion of all continues to about wanting more done when there is nothing more to be done. I spoke with for total 2 times today for a total time of greater than 45 minutes. Exam Vital Signs Vital Sign - Last Date Time Temp Pulse Resp B/P Pulse Ox O2 Delivery O2 Flow Rate FiO2 03/09/17 14:44 Room Air 03/09/17 12:46 60 24 107/72 97 03/09/17 05:09 34.9 03/09/17 00:39 2.00 Intake and Output 03/08/17 03/08/17 03/09/17 Cumulative From/Thru 14:59 22:59 06:59 02/24/17 16:17 - 03/09/17 05:00 Intake Total 220 ml 720 ml 1140 ml 38024 ml Output Total 175 ml 400 ml 6585 ml Balance 45 ml 320 ml 1140 ml 99548 ml Intake Oral 220 ml 720 ml 9140 ml IV Total 1140 ml 50279 ml Output Urine Total 175 ml 400 ml 6585 ml # Voids 30 # Bowel Movements 10 Exam Lungs showed bibasilar rales. Heart was irregularly irregular. Abdomen is distended. Lower extremity shows mild to moderate pitting edema. Lab and Diagnostics Result Diagram: 03/09/17 0535 03/09/1735 Microbiology Blood cultures are negative. MRSA screen is negative. Urine for eosinophils is negative. X-Rays, CTs and MRIs X-RAY CHEST IMPRESSION: Small bibasilar pleural effusions, with increased bibasilar compressive atelectasis versus evolving bronchopneumonia. Dictated and approved by: Barron Sheridan M.D. on 02/24/2017 at 17:50 CT BRAIN WITHOUT CONTRAST IMPRESSION: 1. No acute intracranial abnormalities. 2. Nonacute bilateral caudate nuclei lacunar infarcts as before. Dictated and approved by: Barron Sheridan M.D. on 02/24/2017 at 17:46 US BILATERAL DUPLEX DOPPLER IMAGING OF THE CAROTIDS IMPRESSION: 1. Less than 50% bilateral internal carotid artery stenosis. 2. Antegrade vertebral artery flow bilaterally. Dictated and approved by: Roestte Espinoza M.D. on 02/25/2017 at 10:38 Cardiac Echo Impressions Echocardiogram Report The left ventricle is mildly dilated. The ejection fraction is estimated to be 25-30%. There is severe hypokinesis of the mid and distal septum, and akinesis of the septum and posterior wall. The anterior wall is hypokinetic and in apical inferior wall is akinetic. The right ventricle is mildly dilated. There is severe biatrial enlargement. There is moderate to severe mitral regurgitation. The aortic valve is mildly calcified. There is moderate tricuspid regurgitation. The right ventricular systolic pressure is estimated at 75 mmHg assuming a right atrial pressure of 15 mm Hg. Electronically signed by: Luis Cornell on Reading Physician:02/27/2017 03:08 PM Additional Diagnostics X-RAY BARIUM SWALLOW ESOPHAGUS IMPRESSION: Very limited exam showing no evidence of laryngeal penetration or aspiration with thin through thick barium products. Deglutition and initial peristalsis appeared adequate. There is no high-grade obstruction in the mid or distal esophagus. Dictated and approved by Ed Catalan M.D. on 02/27/2017 at 16:06 X-RAY BARIUM SWALLOW ESOPHAGUS IMPRESSION: Limited study quality due to the dilatation of the patient, but the study does allow assessment for presence of mass lesion or esophageal stricture. There is esophageal dysmotility, but no sign of mass or stricture. Dictated and approved by: Ermias Major M.D. on 03/02/2017 at 13:25 US VEINOUS LEG DUPLEX UNILATERAL, LEFT IMPRESSION: No deep venous thrombosis identified within the left lower extremity. Dictated by: Oscar GOMEZ Interpreted: Devora Ordoñez MD on 03/06/2017 at 16: 58 Approved by: Devora Ordoñez M.D. on 03/06/2017 at 22:47 Plan Impression Impression #1 end-stage cardiorenal syndrome #2 acute kidney injury superimposed on chronic kidney injury secondary to #1 Recommendations #1 I feel that we have more to offer this patient and would strongly urge palliative care. Fluids are not an option, diuretics will only make C renal dysfunction worse and dialysis is not an option. Jakob Bell DO Mar 09, 2017 15:34
--- NOTE | 2017-03-09 16:24 | NUR ---
Wound Care Rechecked patient, mepilex dressing removed from sacrum revealing tiny 0.3 cm diameter stage 2 PU there, nearly healed, new mepilex placed. Skin tear at left forearm not visualized small amount of drainage on dressing (foam) recommend this dressing remain in place to allow skin tear time to heal without being disturbed. Wound to follow only as needed.
--- NOTE | 2017-03-09 19:31 | NUR ---
Voiding Pt hasn't voided all shift, wouldn't allow staff to put pt in bed to perform a bladder scan. Per pt needs to stay out of bed and walk, even if pt doesn't want to walk. Pt has been weak and napping in the chair most of the day. Will continue to monitor.
--- NOTE | 2017-03-10 00:22 | PCM.PNMED ---
Subjective Date of Service Mar 10, 2017 Subjective Patient is a little bit more short of breath today. He is having a little bit more trouble breathing. He has no other new complaints. Exam Vital Signs Vital Sign - Last Date Time Temp Pulse Resp B/P Pulse Ox O2 Delivery O2 Flow Rate FiO2 03/09/17 20:38 35.0 60 20 112/72 98 Room Air 03/09/17 00:39 2.00 Intake and Output 03/09/17 03/09/17 03/10/17 Cumulative From/Thru 15:00 23:00 07:00 02/24/17 16:17 - 03/09/17 20:30 Intake Total 200 ml 583 ml 68184 ml Output Total 250 ml 0 ml 6835 ml Balance -50 ml 583 ml 88998 ml Intake Oral 200 ml 200 ml 9540 ml IV Total 383 ml 62230 ml Output Urine Total 250 ml 0 ml 6835 ml # Voids 30 # Bowel Movements 10 Exam General: The patient appears much more energetic and is sitting up in a bedside chair awake and alert and more responsive today, even after his walk. HEENT: Head is atraumatic and normocephalic. Eyes: Pupils are equally round and reactive to light and accommodation. Extraocular muscles are intact. Sclera are white, anicteric. Subconjunctival mucosa is pink. Ears and nose are unremarkable. Oropharynx: There is no mucosal lesions, there is no thrush, there is no pharyngitis. Mucosa is dry. Neck: Is supple, there are no nodes, or masses or tenderness. Chest: There are diminished breath sounds bilaterally. There are a few basilar rales. Heart: Rate, rhythm is regular. There is no murmur, rub or gallop. Abdomen: Good bowel sounds are present. Abdomen is soft, nontender, no organomegaly or masses were appreciated. Extremities: Are symmetrical and well perfused. The pitting edema of all 4 extremities has slightly improved. This is symmetrical bilaterally. There is no cellulitis and no rash apparent. There is some ecchymosis of both the upper extremities. There is no evidence of cellulitis or infection on the extremities. Lower extremities are wrapped in Jake wraps. Neurologic: There are no focal neurological deficits. Other than diminished hearing, cranial nerves II through XII are intact. There are no sensory or motor deficits. Psychiatric: Patients mood is calm and shows no sign of agitation. He appears exhausted. Genital: Deferred Rectal: Deferred Lab and Diagnostics Result Diagram: 03/09/17 0535 03/09/17 0535 Microbiology Blood cultures are negative. MRSA screen is negative. Urine for eosinophils is negative. X-Rays, CTs and MRIs X-RAY CHEST IMPRESSION: Small bibasilar pleural effusions, with increased bibasilar compressive atelectasis versus evolving bronchopneumonia. Dictated and approved by: Barron Sheridan M.D. on 02/24/2017 at 17:50 CT BRAIN WITHOUT CONTRAST IMPRESSION: 1. No acute intracranial abnormalities. 2. Nonacute bilateral caudate nuclei lacunar infarcts as before. Dictated and approved by: Barron Sheridan M.D. on 02/24/2017 at 17:46 US BILATERAL DUPLEX DOPPLER IMAGING OF THE CAROTIDS IMPRESSION: 1. Less than 50% bilateral internal carotid artery stenosis. 2. Antegrade vertebral artery flow bilaterally. Dictated and approved by: Rosette Espinoza M.D. on 02/25/2017 at 10:38 PROCEDURE: X-RAY CHEST ONE VIEW, PORTABLE ([id number]) INDICATIONS: SHORTNESS OF BREATH TECHNIQUE: One view of the chest was acquired. COMPARISON: [facility], , XR CHEST 1VW (PORTABLE), 02/24/2017, 16: 33. FINDINGS: Surgical changes and devices: Stable position of left chest cardiac pacemaker. Lungs and pleura: Slight interval decrease in the mid/basilar airspace opacities and persistent small effusions present. Mediastinum: Mediastinal contours appear normal. Heart size is normal. Bones and chest wall: No suspicious bony lesions. Overlying soft tissues appear unremarkable. IMPRESSION: Bibasilar pneumonia and small pleural effusion slightly decreased from prior exam. Dictated by: Oscar Holder [facility] Interpreted: Devora Ordoñez MD on 03/09/2017 at 11: 17 Transcribed by: LEONOR on 03/09/2017 at 11:18 Approved by: Devora Ordoñez M.D. on 03/09/2017 at 15:50 Cardiac Echo Impressions Echocardiogram Report The left ventricle is mildly dilated. The ejection fraction is estimated to be 25-30%. There is severe hypokinesis of the mid and distal septum, and akinesis of the septum and posterior wall. The anterior wall is hypokinetic and in apical inferior wall is akinetic. The right ventricle is mildly dilated. There is severe biatrial enlargement. There is moderate to severe mitral regurgitation. The aortic valve is mildly calcified. There is moderate tricuspid regurgitation. The right ventricular systolic pressure is estimated at 75 mmHg assuming a right atrial pressure of 15 mm Hg. Electronically signed by: Luis Cornell on Reading Physician:02/27/2017 03:08 PM Additional Diagnostics X-RAY BARIUM SWALLOW ESOPHAGUS IMPRESSION: Very limited exam showing no evidence of laryngeal penetration or aspiration with thin through thick barium products. Deglutition and initial peristalsis appeared adequate. There is no high-grade obstruction in the mid or distal esophagus. Dictated and approved by Ed Catalan M.D. on 02/27/2017 at 16:06 X-RAY BARIUM SWALLOW ESOPHAGUS IMPRESSION: Limited study quality due to the dilatation of the patient, but the study does allow assessment for presence of mass lesion or esophageal stricture. There is esophageal dysmotility, but no sign of mass or stricture. Dictated and approved by: Ermias Major M.D. on 03/02/2017 at 13:25 US VEINOUS LEG DUPLEX UNILATERAL, LEFT IMPRESSION: No deep venous thrombosis identified within the left lower extremity. Dictated by: Oscar GOMEZ Interpreted: Devora Ordoñez MD on 03/06/2017 at 16: 58 Approved by: Devora Ordoñez M.D. 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 Hospital day 10. 1. Acute blood loss anemia and GI bleed most likely secondary to supratherapeutic INR, present on admission. The bleeding appears to have stopped. - Hemoglobin and hematocrit continuing to improve. No further red blood cell transfusions have been needed. -History of positive stool occult blood one month prior after initiating warfarin therapy for left lower extremity DVT - Gastroenterology has been consulted for likely upper intestinal bleed given history of chronic full dose aspirin, positive stool cold blood at last admission, increased BUN, report of melena, and significant lower hemoglobin than at baseline -The patient's does not wish for any "invasive" procedures such as an upper endoscopy or a colonoscopy, so a barium swallow study was done by Dr. Soares to evaluate dysphagia. The results were limited due to the patient's decreased level of consciousness at the time. Dr. Soares's progress note () suggested a possible repeat barium swallow to work up a possible obstruction and/or neoplasm. Barium swallow performed on 2016 and showed evidence for esophageal dysmotility, but no sign of mass or stricture. -Home anticoagulation meds included warfarin and clopidogrel. Dr. Tucker and Dr. Thompson discussed with the patient's Katty the risks and benefits of continuing anticoagulation in light of his deep venous thrombosis and transient ischemic attack history, contrasted with his increasing risk of falls. His understands, and wishes for him to continue on only clopidogrel and aspirin at home upon discharge. Venous Doppler performed on 03/06/2017 shows. "No deep venous thrombosis identified within the left lower extremity". - Continue holding all anticoagulation for now, since source of bleeding unknown. -Continue dysphagia diabetic diet with the patient's would like an ENT consultation. Therefore, I contacted Dr. Song Burgos who agreed to see the patient today in consultation. - Continue oral Protonix. 2. Acute on chronic kidney injury, present on admission. Active and slightly worse. - Most likely due to prerenal azotemia - Creatinine and BUN have stabilized - Nephrology consulted, we appreciated their input. Per nephrology recent worsening of renal function likely due to dehydration. Torsemide will be held again today and IV fluids are continued. - Avoid nephrotoxic agents - Espino catheter removed. Assistance at all times when ambulating. - The torsemide is now on hold -- One time furosemide IV 100 was given by nephrology on 03/04/2017. 3. Chronic systolic congestive heart failure, present on admission, active - Ejection fraction of 35-40% from echo done on 01/10/2017 with severe pulmonary hypertension - Recent echo preformed on 02/26/2017 revealed worsening cardiac function with ejection fraction of 25-30%, severe hypokinesis of the mid and distal septum, and akinesis of the septum and posterior wall, severe biatrial enlargement, moderate to severe mitral regurgitation, mildly calcified aortic valve and moderate tricuspid regurgitation - Due to the fact that the patient's is against any additional procedures, cardiology has not been consulted - We will have physical therapy continue to evaluate and treat the patient. 4. Hypotension, present on admission, improved -Blood pressure is within normal limits today -Continue to hold all diuresis and all blood pressure medications - Obtain orthostatic vital signs - Continue physical therapy to assess ambulatory safety. 5. Possible TIA, present on admission, improving -CT scan negative, patient's declines MRI even though patient has MRI compatible pacemaker -Ultrasound of the carotids: Less than 50% bilateral internal carotid artery stenosis. Antegrade vertebral artery flow bilaterally -Continue to monitor - Continue speech therapy 6. Hematoma around pacemaker, chronic, stable -Cardiology has examined and states that this is actually improved from the patient's baseline no further treatment needed just continue to monitor 7. Elevated troponins of uncertain significance, present on admission, active -Most likely stress-induced -Troponins 0.104-->0.100-->0.115 -Cardiology following, pacemaker has been interrogated and is working appropriately 8. Recent history of left lower extremity DVT (01/09/17), currently stable -Hold all anticoagulation as patient is currently supratherapeutic and currently bleeding 9. Type II diabetes Controlled with diet. Continue dysphagia diabetic diet. DVT prophylaxis: -Home anticoagulation meds included warfarin and clopidogrel. Dr. Tucker and Dr. Thompson discussed with the patient's Katty the risks and benefits of continuing anticoagulation in light of his deep venous thrombosis and transient ischemic attack history, contrasted with his increasing risk of falls. His understands, and wishes for him to continue on only clopidogrel and aspirin at home upon discharge. Venous Doppler performed on 03/06/2017 shows. "No deep venous thrombosis identified within the left lower extremity". Disposition: Patient's is not accepting of comfort as a goal of care, and palliative care has signed off. I have discussed the case with Dr. Bell and his impression and recommendations are as follows: "Impression #1 end-stage cardiorenal syndrome #2 acute kidney injury superimposed on chronic kidney injury secondary to #1 Recommendations #1 I feel that we have more to offer this patient and would strongly urge palliative care. Fluids are not an option, diuretics will only make C renal dysfunction worse and dialysis is not an option." Pain Evaluation: Adequate Pain Control GI Prophylaxis: Proton Pump Inhibitor VTE Prophylaxis: Other (Holding warfarin due to suspected gastrointestinal bleeding) VTE Mechanical Devices: Intermittant Pneumatic CD Resuscitation Status: Limited Interventions Limited Interventions: Compressions, Cardioversion/Defibrillation, BiPAP, Medications and IV Fluid StephanStuart rodriguez MD Mar 10, 2017 00:22
[2017-03-10 00:34] VITALS: BP 120/74; PULSE 61; RESP 18; O2SAT 98
--- NOTE | 2017-03-10 01:56 | NUR ---
[facility] BED ALARM Pt refused [place] Bed Alarm, wanted pad removed from bed. stated, "it can not be used because he has a pacemaker." RN educated pt on the importance of fall safety and purpose of bed alarms. continued to refuse. Bed locked, low position. Rails up. at bedside, lights on in room. RN positioned outside pt room. Monitoring frequently. Call light within reach.
[2017-03-10 02:30] VITALS: PULSE 60
--- NOTE | 2017-03-10 03:59 | NUR ---
Patient condition Patient has been non-verbal to staff overnight, at bedside directing care. Patient does not appear to be in pain or distress, but is very weak. Turning in bed independently, but is now a 2PA to bathroom with FWW. insists on patient going to bathroom instead of using urinal. Patient's said twice, "I'm worried about him." and asked to have oxygen saturations checked (98% on room air) and temporal temperature 34.9. Warm blanket provided per 's request. Close monitoring in place.
[2017-03-10 05:25] VITALS: BP 99/60; PULSE 60; RESP 18; O2SAT 98
[2017-03-10 05:37] VITALS: PULSE 62
[2017-03-10 06:51] LABS: BASOPHILS % (AUTO) 0.1 % (0-3); EOSINOPHILS % (AUTO) 1.1 % (0-5); MONOCYTES % (AUTO) 6.1 % (4-12); Mean Corpuscular Hemoglobin 27.6 pg (27.0-35.0); Mean Corpuscular Volume 87.2 fL (81-100); NEUTROPHILS % (AUTO) 60.8 % (40-74); Platelet Count 54 bil/L (150-400)
[2017-03-10 07:33] LABS: Magnesium 2.3 mg/dL (1.6-2.6)
[2017-03-10] MEDS: Pantoprazole 20 mg ER24 Tablet PO SCH (09:08)
--- NOTE | 2017-03-10 10:15 | NUR ---
OC signed ELEAZAR Prakash
[2017-03-10 11:23] VITALS: BP 107/67; PULSE 60; RESP 18; O2SAT 100
[2017-03-10 21:16] VITALS: BP 107/63; PULSE 60; RESP 16; O2SAT 98
--- NOTE | 2017-03-10 22:56 | PCM.PNMED ---
Subjective Date of Service Mar 10, 2017 Subjective Patient has no new complaints he is sitting at the bedside in a bedside chair about the lunch. He just returned from a walk with physical therapy. Exam Vital Signs Vital Sign - Last Date Time Temp Pulse Resp B/P Pulse Ox O2 Delivery O2 Flow Rate FiO2 03/10/17 21:16 34.9 60 16 107/63 98 Room Air 03/09/17 00:39 2.00 Intake and Output 03/09/17 03/09/17 03/10/17 Cumulative From/Thru 15:00 23:00 07:00 02/24/17 16:17 - 03/10/17 05:41 Intake Total 200 ml 583 ml 661 ml 25857 ml Output Total 250 ml 0 ml 6835 ml Balance -50 ml 583 ml 661 ml 04581 ml Intake Oral 200 ml 200 ml 9540 ml IV Total 383 ml 661 ml 56918 ml Output Urine Total 250 ml 0 ml 6835 ml # Voids 30 # Bowel Movements 10 Exam General: The patient appears much more energetic and is sitting up in a bedside chair awake and alert, even after his walk again today. HEENT: Head is atraumatic and normocephalic. Eyes: Pupils are equally round and reactive to light and accommodation. Extraocular muscles are intact. Sclera are white, anicteric. Subconjunctival mucosa is pink. Ears and nose are unremarkable. Oropharynx: There is no mucosal lesions, there is no thrush, there is no pharyngitis. Mucosa is dry. Neck: Is supple, there are no nodes, or masses or tenderness. Chest: There are diminished breath sounds bilaterally. There are a few basilar rales. Heart: Rate, rhythm is regular. There is no murmur, rub or gallop. Abdomen: Good bowel sounds are present. Abdomen is soft, nontender, no organomegaly or masses were appreciated. Extremities: Are symmetrical and well perfused. The pitting edema of all 4 extremities is stable. This is symmetrical bilaterally. There is no cellulitis and no rash apparent. There is some ecchymosis of both the upper extremities. There is no evidence of cellulitis or infection on the extremities. Lower extremities are wrapped in Jake wraps. Neurologic: There are no focal neurological deficits. Other than diminished hearing, cranial nerves II through XII are intact. There are no sensory or motor deficits. Psychiatric: Patients mood is calm and shows no sign of agitation. He appears exhausted. Genital: Deferred Rectal: Deferred Lab and Diagnostics Result Diagram: 03/10/17 0603 03/10/17 0603 Microbiology Blood cultures are negative. MRSA screen is negative. Urine for eosinophils is negative. X-Rays, CTs and MRIs X-RAY CHEST IMPRESSION: Small bibasilar pleural effusions, with increased bibasilar compressive atelectasis versus evolving bronchopneumonia. Dictated and approved by: Barron Sheridan M.D. on 02/24/2017 at 17:50 CT BRAIN WITHOUT CONTRAST IMPRESSION: 1. No acute intracranial abnormalities. 2. Nonacute bilateral caudate nuclei lacunar infarcts as before. Dictated and approved by: Barron Sheridan M.D. on 02/24/2017 at 17:46 US BILATERAL DUPLEX DOPPLER IMAGING OF THE CAROTIDS IMPRESSION: 1. Less than 50% bilateral internal carotid artery stenosis. 2. Antegrade vertebral artery flow bilaterally. Dictated and approved by: Rosette Espinoza M.D. on 02/25/2017 at 10:38 PROCEDURE: X-RAY CHEST ONE VIEW, PORTABLE ([id number]) INDICATIONS: SHORTNESS OF BREATH TECHNIQUE: One view of the chest was acquired. COMPARISON: [facility], CR, XR CHEST 1VW (PORTABLE), 02/24/2017, 16: 33. FINDINGS: Surgical changes and devices: Stable position of left chest cardiac pacemaker. Lungs and pleura: Slight interval decrease in the mid/basilar airspace opacities and persistent small effusions present. Mediastinum: Mediastinal contours appear normal. Heart size is normal. Bones and chest wall: No suspicious bony lesions. Overlying soft tissues appear unremarkable. IMPRESSION: Bibasilar pneumonia and small pleural effusion slightly decreased from prior exam. Dictated by: Oscar Holder Gordon Interpreted: Devora Ordoñez MD on 03/09/2017 at 11: 17 Transcribed by: LEONOR on 03/09/2017 at 11:18 Approved by: Devora Ordoñez M.D. on 03/09/2017 at 15:50 Cardiac Echo Impressions Echocardiogram Report The left ventricle is mildly dilated. The ejection fraction is estimated to be 25-30%. There is severe hypokinesis of the mid and distal septum, and akinesis of the septum and posterior wall. The anterior wall is hypokinetic and in apical inferior wall is akinetic. The right ventricle is mildly dilated. There is severe biatrial enlargement. There is moderate to severe mitral regurgitation. The aortic valve is mildly calcified. There is moderate tricuspid regurgitation. The right ventricular systolic pressure is estimated at 75 mmHg assuming a right atrial pressure of 15 mm Hg. Electronically signed by: Luis Cornell on Reading Physician:02/27/2017 03:08 PM Additional Diagnostics X-RAY BARIUM SWALLOW ESOPHAGUS IMPRESSION: Very limited exam showing no evidence of laryngeal penetration or aspiration with thin through thick barium products. Deglutition and initial peristalsis appeared adequate. There is no high-grade obstruction in the mid or distal esophagus. Dictated and approved by Ed Catalan M.D. on 02/27/2017 at 16:06 X-RAY BARIUM SWALLOW ESOPHAGUS IMPRESSION: Limited study quality due to the dilatation of the patient, but the study does allow assessment for presence of mass lesion or esophageal stricture. There is esophageal dysmotility, but no sign of mass or stricture. Dictated and approved by: Ermias Major M.D. on 03/02/2017 at 13:25 US VEINOUS LEG DUPLEX UNILATERAL, LEFT IMPRESSION: No deep venous thrombosis identified within the left lower extremity. Dictated by: Oscar GOMEZ Interpreted: Devora Ordoñez MD on 03/06/2017 at 16: 58 Approved by: Devora Ordoñez M.D. 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 Hospital day 10. 1. Acute blood loss anemia and GI bleed most likely secondary to supratherapeutic INR, present on admission. The bleeding appears to have stopped. - Hemoglobin and hematocrit continuing to improve and/or remain stable. No further red blood cell transfusions have been needed. -History of positive stool occult blood one month prior after initiating warfarin therapy for left lower extremity DVT - Gastroenterology has been consulted for likely upper intestinal bleed given history of chronic full dose aspirin, positive stool cold blood at last admission, increased BUN, report of melena, and significant lower hemoglobin than at baseline -The patient's does not wish for any "invasive" procedures such as an upper endoscopy or a colonoscopy, so a barium swallow study was done by Dr. Soares to evaluate dysphagia. The results were limited due to the patient's decreased level of consciousness at the time. Dr. Soares's progress note () suggested a possible repeat barium swallow to work up a possible obstruction and/or neoplasm. Barium swallow performed on 2016 and showed evidence for esophageal dysmotility, but no sign of mass or stricture. -Home anticoagulation meds included warfarin and clopidogrel. Dr. Tucker and Dr. Thompson discussed with the patient's Katty the risks and benefits of continuing anticoagulation in light of his deep venous thrombosis and transient ischemic attack history, contrasted with his increasing risk of falls. His understands, and wishes for him to continue on only clopidogrel and aspirin at home upon discharge. Venous Doppler performed on 03/06/2017 shows. "No deep venous thrombosis identified within the left lower extremity". - Continue holding all anticoagulation for now, since source of bleeding unknown. -Continue dysphagia diabetic diet with the patient's would like an ENT consultation. Therefore, I contacted Dr. Song Burgos who agreed to see the patient today in consultation. - Continue oral Protonix. 2. Acute on chronic kidney injury, present on admission. Active and slightly worse. - Most likely due to prerenal azotemia - Creatinine and BUN have stabilized - Nephrology consulted, we appreciated their input. Per nephrology recent worsening of renal function likely due to dehydration. Torsemide will be held again today and IV fluids are continued. - Avoid nephrotoxic agents - Espino catheter removed. Assistance at all times when ambulating. - The torsemide is now on hold -- One time furosemide IV 100 was given by nephrology on 03/04/2017. 3. Chronic systolic congestive heart failure, present on admission, active - Ejection fraction of 35-40% from echo done on 01/10/2017 with severe pulmonary hypertension - Recent echo preformed on 02/26/2017 revealed worsening cardiac function with ejection fraction of 25-30%, severe hypokinesis of the mid and distal septum, and akinesis of the septum and posterior wall, severe biatrial enlargement, moderate to severe mitral regurgitation, mildly calcified aortic valve and moderate tricuspid regurgitation - Due to the fact that the patient's is against any additional procedures, cardiology has not been consulted - We will have physical therapy continue to evaluate and treat the patient. 4. Hypotension, present on admission, improved -Blood pressure is within normal limits today -Continue to hold all diuresis and all blood pressure medications - Obtain orthostatic vital signs - Continue physical therapy to assess ambulatory safety. 5. Possible TIA, present on admission, improving -CT scan negative, patient's declines MRI even though patient has MRI compatible pacemaker -Ultrasound of the carotids: Less than 50% bilateral internal carotid artery stenosis. Antegrade vertebral artery flow bilaterally -Continue to monitor - Continue speech therapy 6. Hematoma around pacemaker, chronic, stable -Cardiology has examined and states that this is actually improved from the patient's baseline no further treatment needed just continue to monitor - There is no evidence for cellulitis or infection. 7. Elevated troponins of uncertain significance, present on admission, active -Most likely stress-induced -Troponins 0.104-->0.100-->0.115 -Cardiology following, pacemaker has been interrogated and is working appropriately 8. Recent history of left lower extremity DVT (01/09/17), currently stable -Hold all anticoagulation as patient is currently supratherapeutic and currently bleeding 9. Type II diabetes Controlled with diet. Continue dysphagia diabetic diet. DVT prophylaxis: -Home anticoagulation meds included warfarin and clopidogrel. Dr. Tucker and Dr. Thompson discussed with the patient's Katty the risks and benefits of continuing anticoagulation in light of his deep venous thrombosis and transient ischemic attack history, contrasted with his increasing risk of falls. His understands, and wishes for him to continue on only clopidogrel and aspirin at home upon discharge. Venous Doppler performed on 03/06/2017 shows. "No deep venous thrombosis identified within the left lower extremity". Disposition: Patient's is not accepting of comfort as a goal of care, and palliative care has signed off. I have discussed the case with Dr. Bell and his impression and recommendations are as follows: "Impression #1 end-stage cardiorenal syndrome #2 acute kidney injury superimposed on chronic kidney injury secondary to #1 Recommendations #1 I feel that we have more to offer this patient and would strongly urge palliative care. Fluids are not an option, diuretics will only make C renal dysfunction worse and dialysis is not an option. Pain Evaluation: Adequate Pain Control GI Prophylaxis: Proton Pump Inhibitor VTE Prophylaxis: Other (Holding warfarin due to suspected gastrointestinal bleeding) VTE Mechanical Devices: Intermittant Pneumatic CD Resuscitation Status: Limited Interventions Limited Interventions: Compressions, Cardioversion/Defibrillation, BiPAP, Medications and IV Fluid Stuart Rothman MD Mar 10, 2017 22:56
[2017-03-11] VITALS (7 sets, daily range): BP systolic 95–120; BP diastolic 53–67; PULSE 58–72; RESP 20–24; O2SAT 95–97
--- NOTE | 2017-03-11 06:10 | NUR ---
Low Temp Unable to get accurate temp. Pt refusing to keep blankets or socks on. Skin cool to touch. notified. [place] Adan ordered. Pt resting in bed with eyes closed covered with warming blanket. Monitoring temp frequently.
[2017-03-11] MEDS: Pantoprazole 20 mg ER24 Tablet PO SCH (07:30)
[2017-03-11 08:04] LABS: BASOPHILS % (AUTO) 0.2 % (0-3); EOSINOPHILS % (AUTO) 0.5 % (0-5); Mean Corpuscular Hemoglobin 27.2 pg (27.0-35.0); Mean Corpuscular Volume 84.7 fL (81-100); NEUTROPHILS % (AUTO) 72.5 % (40-74); Platelet Count 70 bil/L (150-400)
--- NOTE | 2017-03-11 23:56 | PCM.PNMED ---
Subjective Date of Service Mar 11, 2017 Subjective The patient is sitting in a bedside chair near to the bathroom today. His states that is because the patient had to get up several times to go to the bathroom last evening. He apparently did not have diarrhea but had some normal bowel movements. Patient has no other new complaints. Exam Vital Signs Vital Sign - Last Date Time Temp Pulse Resp B/P Pulse Ox O2 Delivery O2 Flow Rate FiO2 03/11/17 21:55 35.1 72 22 99/65 96 Room Air 03/09/17 00:39 2.00 Intake and Output 03/10/17 03/10/17 03/11/17 Cumulative From/Thru 15:00 23:00 07:00 02/24/17:17 - 03/11/17 06:13 Intake Total 0 ml 680 ml 0 ml 44608 ml Output Total 100 ml 175 ml 7110 ml Balance 0 ml 580 ml -175 ml 02095 ml Intake Oral 0 ml 80 ml 0 ml 9620 ml IV Total 600 ml 94371 ml Output Urine Total 100 ml 175 ml 7110 ml # Voids 3 2 35 # Bowel Movements 1 11 Exam General: The patient continues to be more awake and alert and sitting up in a bedside chair. HEENT: Head is atraumatic and normocephalic. Eyes: Pupils are equally round and reactive to light and accommodation. Extraocular muscles are intact. Sclera are white, anicteric. Subconjunctival mucosa is pink. Ears and nose are unremarkable. Oropharynx: There is no mucosal lesions, there is no thrush, there is no pharyngitis. Mucosa is dry. Neck: Is supple, there are no nodes, or masses or tenderness. Chest: There are diminished breath sounds bilaterally. There are a few basilar rales. Heart: Rate, rhythm is regular. There is no murmur, rub or gallop. Abdomen: Good bowel sounds are present. Abdomen is soft, nontender, no organomegaly or masses were appreciated. Extremities: Are symmetrical and well perfused. The pitting edema of all 4 extremities is stable. They are symmetrical bilaterally. There is no cellulitis and no rash apparent. There is some ecchymosis of both the upper extremities. There is no evidence of cellulitis or infection on the extremities. Lower extremities are wrapped in Jake wraps. Neurologic: There are no focal neurological deficits. Other than diminished hearing, cranial nerves II through XII are intact. There are no sensory or motor deficits. Psychiatric: Patients mood is calm and shows no sign of agitation. He appears exhausted. Genital: Deferred Rectal: Deferred Lab and Diagnostics Result Diagram: 03/11/17 0713 03/11/17 0713 Microbiology Blood cultures are negative. MRSA screen is negative. Urine for eosinophils is negative. X-Rays, CTs and MRIs X-RAY CHEST IMPRESSION: Small bibasilar pleural effusions, with increased bibasilar compressive atelectasis versus evolving bronchopneumonia. Dictated and approved by: Barron Sheridan M.D. on 02/24/2017 at 17:50 CT BRAIN WITHOUT CONTRAST IMPRESSION: 1. No acute intracranial abnormalities. 2. Nonacute bilateral caudate nuclei lacunar infarcts as before. Dictated and approved by: Barron Sheridan M.D. on 02/24/2017 at 17:46 US BILATERAL DUPLEX DOPPLER IMAGING OF THE CAROTIDS IMPRESSION: 1. Less than 50% bilateral internal carotid artery stenosis. 2. Antegrade vertebral artery flow bilaterally. Dictated and approved by: Rosette Espinoza M.D. on 02/25/2017 at 10:38 PROCEDURE: X-RAY CHEST ONE VIEW, PORTABLE ([id number]) INDICATIONS: SHORTNESS OF BREATH TECHNIQUE: One view of the chest was acquired. COMPARISON: [facility], , XR CHEST 1VW (PORTABLE), 02/24/2017, 16: 33. FINDINGS: Surgical changes and devices: Stable position of left chest cardiac pacemaker. Lungs and pleura: Slight interval decrease in the mid/basilar airspace opacities and persistent small effusions present. Mediastinum: Mediastinal contours appear normal. Heart size is normal. Bones and chest wall: No suspicious bony lesions. Overlying soft tissues appear unremarkable. IMPRESSION: Bibasilar pneumonia and small pleural effusion slightly decreased from prior exam. Dictated by: Oscar GOMEZ Interpreted: Devora Ordoñez MD on 03/09/2017 at 11: 17 Transcribed by: LEONOR on 03/09/2017 at 11:18 Approved by: Devora Ordoñez M.D. on 03/09/2017 at 15:50 Cardiac Echo Impressions Echocardiogram Report The left ventricle is mildly dilated. The ejection fraction is estimated to be 25-30%. There is severe hypokinesis of the mid and distal septum, and akinesis of the septum and posterior wall. The anterior wall is hypokinetic and in apical inferior wall is akinetic. The right ventricle is mildly dilated. There is severe biatrial enlargement. There is moderate to severe mitral regurgitation. The aortic valve is mildly calcified. There is moderate tricuspid regurgitation. The right ventricular systolic pressure is estimated at 75 mmHg assuming a right atrial pressure of 15 mm Hg. Electronically signed by: Luis Cornell on Reading Physician:02/27/2017 03:08 PM Additional Diagnostics X-RAY BARIUM SWALLOW ESOPHAGUS IMPRESSION: Very limited exam showing no evidence of laryngeal penetration or aspiration with thin through thick barium products. Deglutition and initial peristalsis appeared adequate. There is no high-grade obstruction in the mid or distal esophagus. Dictated and approved by Ed Catalan M.D. on 02/27/2017 at 16:06 X-RAY BARIUM SWALLOW ESOPHAGUS IMPRESSION: Limited study quality due to the dilatation of the patient, but the study does allow assessment for presence of mass lesion or esophageal stricture. There is esophageal dysmotility, but no sign of mass or stricture. Dictated and approved by: Ermias Major M.D. on 03/02/2017 at 13:25 US VEINOUS LEG DUPLEX UNILATERAL, LEFT IMPRESSION: No deep venous thrombosis identified within the left lower extremity. Dictated by: Oscar GOMEZ Interpreted: Devora Ordoñez MD on 03/06/2017 at 16: 58 Approved by: Devora Ordoñez M.D. 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 Hospital day 10. 1. Acute blood loss anemia and GI bleed most likely secondary to supratherapeutic INR, present on admission. The bleeding appears to have stopped. - Hemoglobin and hematocrit continuing to improve and/or remain stable. No further red blood cell transfusions have been needed. -History of positive stool occult blood one month prior after initiating warfarin therapy for left lower extremity DVT - Gastroenterology has been consulted for likely upper intestinal bleed given history of chronic full dose aspirin, positive stool cold blood at last admission, increased BUN, report of melena, and significant lower hemoglobin than at baseline -The patient's does not wish for any "invasive" procedures such as an upper endoscopy or a colonoscopy, so a barium swallow study was done by Dr. Soares to evaluate dysphagia. The results were limited due to the patient's decreased level of consciousness at the time. Dr. Soares's progress note () suggested a possible repeat barium swallow to work up a possible obstruction and/or neoplasm. Barium swallow performed on 2016 and showed evidence for esophageal dysmotility, but no sign of mass or stricture. -Home anticoagulation meds included warfarin and clopidogrel. Dr. Tucker and Dr. Thompson discussed with the patient's Katty the risks and benefits of continuing anticoagulation in light of his deep venous thrombosis and transient ischemic attack history, contrasted with his increasing risk of falls. His understands, and wishes for him to continue on only clopidogrel and aspirin at home upon discharge. Venous Doppler performed on 03/06/2017 shows. "No deep venous thrombosis identified within the left lower extremity". - Continue holding all anticoagulation for now, since source of bleeding unknown. -Continue dysphagia diabetic diet with the patient's would like an ENT consultation. Therefore, I contacted Dr. Song Burgos who agreed to see the patient today in consultation. - Continue oral Protonix. 2. Acute on chronic kidney injury, present on admission. Active and slightly worse. - Most likely due to prerenal azotemia - Creatinine and BUN have stabilized on gentle IV hydration - Nephrology consulted, we appreciated their input. Per nephrology recent worsening of renal function likely due to dehydration. Torsemide will be held again today and IV fluids are continued. - Avoid nephrotoxic agents the patient's is refusing to allow him to have Protonix as she believes that this might be nephrotoxic. - Espino catheter removed. Assistance at all times when ambulating. - The torsemide is now on hold -- One time furosemide IV 100 was given by nephrology on 03/04/2017. 3. Chronic systolic congestive heart failure, present on admission, active - Ejection fraction of 35-40% from echo done on 01/10/2017 with severe pulmonary hypertension - Recent echo preformed on 02/26/2017 revealed worsening cardiac function with ejection fraction of 25-30%, severe hypokinesis of the mid and distal septum, and akinesis of the septum and posterior wall, severe biatrial enlargement, moderate to severe mitral regurgitation, mildly calcified aortic valve and moderate tricuspid regurgitation - Due to the fact that the patient's is against any additional procedures, cardiology has not been consulted - We will have physical therapy continue to evaluate and treat the patient. 4. Hypotension, present on admission, improved -Blood pressure is within normal limits today -Continue to hold all diuresis and all blood pressure medications - Continue physical therapy to assess ambulatory safety. 5. Possible TIA, present on admission, improving -CT scan negative, patient's declines MRI even though patient has MRI compatible pacemaker -Ultrasound of the carotids: Less than 50% bilateral internal carotid artery stenosis. Antegrade vertebral artery flow bilaterally -Continue to monitor - Continue speech therapy 6. Hematoma around pacemaker, chronic, stable -Cardiology has examined and states that this is actually improved from the patient's baseline no further treatment needed just continue to monitor - There is no evidence for cellulitis or infection. 7. Elevated troponins of uncertain significance, present on admission, active -Most likely stress-induced -Troponins 0.104-->0.100-->0.115 -Cardiology was following, pacemaker has been interrogated and is working appropriately 8. Recent history of left lower extremity DVT (01/09/17), currently stable -We held all anticoagulation on admissionpatient had an INR that was supratherapeutic and he had evidence of GI bleeding. -Repeat venous Doppler ultrasound was negative for DVT in the left lower extremity where it was present for. See "DVT prophylaxis" below. 9. Type II diabetes Controlled with diet. Continue dysphagia diabetic diet. DVT prophylaxis: -Home anticoagulation meds included warfarin and clopidogrel. Dr. Tucker and Dr. Thompson discussed with the patient's Katty the risks and benefits of continuing anticoagulation in light of his deep venous thrombosis and transient ischemic attack history, contrasted with his increasing risk of falls. His understands, and wishes for him to continue on only clopidogrel and aspirin at home upon discharge. Venous Doppler performed on 03/06/2017 shows. "No deep venous thrombosis identified within the left lower extremity". Disposition: Patient's is not accepting of comfort as a goal of care, and palliative care has signed off. I have discussed the case with Dr. Bell and his impression and recommendations are as follows: "Impression #1 end-stage cardiorenal syndrome #2 acute kidney injury superimposed on chronic kidney injury secondary to #1 Recommendations #1 I feel that we have more to offer this patient and would strongly urge palliative care. Fluids are not an option, diuretics will only make C renal dysfunction worse and dialysis is not an option. I had an advance care plan meeting with the patient and the patient's Katty and nurse Sandie Lopez. The patient's and I wanted to continue all efforts to save her but was frustrated and how long it was taking and wanted him to go home soon. We will ask for nephrology to revisit the patient in a.m. Pain Evaluation: Adequate Pain Control GI Prophylaxis: Proton Pump Inhibitor VTE Prophylaxis: Other (Holding warfarin due to suspected gastrointestinal bleeding) VTE Mechanical Devices: Intermittant Pneumatic CD Resuscitation Status: Limited Interventions Limited Interventions: Compressions, Cardioversion/Defibrillation, BiPAP, Medications and IV Fluid Stuart Rothman MD Mar 11, 2017 23:56
[2017-03-12] VITALS (7 sets, daily range): BP systolic 88–104; BP diastolic 56–71; PULSE 58–62; RESP 18–40; O2SAT 94–99
--- NOTE | 2017-03-12 00:04 | PCM.ADCARE ---
Advance Care Planning Note Purpose of Encounter: To establish goals of care. Parties in Attendance: The patient Katty Fernández his , nurse Christiano Lopez and myself Dr. Rothman. Decisional Capacity: It appears that the patient's and is making all decisions for him it is uncertain as to whether Efren the patient can make decisions for himself or not. Subjective: It is the patient's 's belief that the patient Efren Walsh was "fine" before he came to the hospital. She expects him to get well and go home. She would like him to go home soon. Objective: According to Dr. Bell, the patient's regular slab installer, the patient has end-stage cardiorenal syndrome with acute kidney injury superimposed on chronic kidney injury secondary to end-stage cardiorenal syndrome. Dr. Bell feels that "we have more to offer this patient and would strongly urge palliative care. Fluids are not an option, diuretics will only make C renal dysfunction worse and dialysis is not an option". Goals of Care Determinations: The patient's and refuses palliative care consultation and in fact palliative care has attempted to see the patient before and has signed off. The patient's and also refuses any talk of hospice care. She wants her to get well and go home soon. When I explained to her that that may take some time as he may not get well and in the remaining hospitalized for several weeks. I again offered the option of the patient going home sooner on hospice care and the patient's and a recent fevers. Plan: Plan will to ask nephrology to revisit the patient in a.m. to see if there is anything else that could be done. When I mentioned that the patient could be transferred to [place] for continuous renal renal hemodialysis the patient's and I said no. CODE STATUS: CODE STATUS was again discussed with the patient and patient's . Again the patient's appeared to be making all the decisions for the patient. She indicated that she wanted him to remain a patient who would have limited interventions which would include medications and chest percussions. But she did not want intubation. Time Spent Adv.Care Planning: Approximately 30 minutes were spent in advanced care planning on this patient on 03/11/2017. Adv. Care Plan Documenation: See above. Stuart Rothman MD Mar 12, 2017 00:04
--- NOTE | 2017-03-12 04:46 | NUR ---
Patient condition/ SHIRT TURNER reported that patient's respiration rate was 40 at about 0415. Assessed patient, appeared to have more difficulty breathing. Auscultated lung field, basilar crackles noted. Conversed with patient's , and she asked, "How do you know?" I explained that I "heard" fluid when I listened, and I would call our doctor. became agitated, said that "maybe" having fluid isn't good enough, and verbally expressed frustration with patient's condition not improving. She then reported that she doesn't want him to have any more Lasix because of his kidneys. I explained again that we will call the doctor. Primary RN in room for discussion. Bladder scan revealed 9ml fluid. MD paged by primary RN, new order for stat chest X-ray. Patient's updated on intervention.
--- NOTE | 2017-03-12 04:56 | NUR ---
Elevated RR pt has been restless and trying to get out of bed. Noted RR of 40. Auscultation of the chest noted rales/crackles and severely decreased on bilateral lobe. notified and ordered CXR 1 view. Will await for further orders. Addendum: 03/12/17 at 0614 by JERALD MIDDLETON RN Pt has now calmed down and is sleeping in bed. Pt's RR is on 21 and saturating about 94% on RA. Will continue to monitor.
[2017-03-12] MEDS: Pantoprazole 20 mg ER24 Tablet PO SCH ×2 (08:03→08:31)
--- NOTE | 2017-03-12 08:13 | DRSVH ---
PROCEDURE: X-RAY CHEST ONE VIEW, PORTABLE ([id number]) INDICATIONS: sob TECHNIQUE: One view of the chest was acquired. COMPARISON: [facility], CR, XR CHEST 1VW (PORTABLE), 02/24/2017, 16:33. [facility], CR, XR CHEST 1VW (PORTABLE), 03/09/2017, 8:44. FINDINGS: Surgical changes and devices: Stable positioning of dual-chamber lead cardiac pacemaker. Lungs and pleura: Min/basilar patchy airspace opacities redemonstrated and small pleural effusions. No pneumothorax. Mediastinum: Mediastinal contours appear normal. Heart size is normal. Bones and chest wall: No suspicious bony lesions. Overlying soft tissues appear unremarkable. IMPRESSION: Persistent basilar pleural effusions and mid/basilar airspace opacities consistent with c ompressive atelectasis versus bibasilar pneumonia. Dictated by: Oscar Holder RRGordon Interpreted: Rojelio Atkins MD on 03/12/2017 at 8:11 Transcribed by: MIGDALIA on 03/12/2017 at 8:12 Approved by: Rojelio Atkins M.D. on 03/12/2017 at 9:08
[2017-03-12 08:56] LABS: Mean Corpuscular Hemoglobin 27.2 pg (27.0-35.0)
[2017-03-12 08:58] LABS: Platelet Count 83 bil/L (150-400)
[2017-03-12 09:14] LABS: BASOPHILS % (AUTO) 0 % (0-3); EOSINOPHILS % (AUTO) 0 % (0-5); MONOCYTES % (AUTO) 5 % (4-12); NEUTROPHILS % (AUTO) 92 % (40-74)
[2017-03-12 09:16] LABS: Magnesium 2.3 mg/dL (1.6-2.6); Phosphorus 5.5 mg/dL (2.5-4.9)
--- NOTE | 2017-03-12 11:38 | PCM.PNMED ---
Subjective Date of Service Mar 12, 2017 Subjective Patient denied any complaints Patient was seen at the bedside while he was eating breakfast Looks very comfortable, not using any accessory muscle was at the bedside, requested further evaluation by Nephrology for potential HD/UF state that she wants him to be alive, however, agree that she wants him to be comfortable was willing to take him home if he is not indicated for dialysis Exam Vital Signs Vital Sign - Last Date Time Temp Pulse Resp B/P Pulse Ox O2 Delivery O2 Flow Rate FiO2 03/12/17 10:35 60 03/12/17 10:06 Room Air 03/12/17 04:10 35.8 40 97 03/09/17 00:39 2.00 Intake and Output 03/11/17 03/11/17 03/12/17 Cumulative From/Thru 15:00 23:00 07:00 02/24/17 16:17 - 03/12/17 06:04 Intake Total 2133 ml 2095 ml 23309 ml Output Total 250 ml 7360 ml Balance 1883 ml 2095 ml 23193 ml Intake Oral 725 ml 36910 ml IV Total 1408 ml 2095 ml 04555 ml Output Urine Total 250 ml 7360 ml # Voids 35 # Bowel Movements 1 12 Exam NAD, comfortably laying down on the bed no JVD, MMM, no LAD RRR, nl s1, s2 no mrg Poor inspiratory effort, increased breathing sounds bilaterally, no w,c S,ND,NT,normoactive BS+ warm, 1+pitting edema bilaterally, scatter minor ulcers in LE, oozing, mild erythema, IVs and Medications Medications Reviewed: Medications were reviewed in detail Lab and Diagnostics Result Diagram: 03/12/17 0845 03/12/17 0845 Microbiology Blood cultures are negative. MRSA screen is negative. Urine for eosinophils is negative. X-Rays, CTs and MRIs X-RAY CHEST IMPRESSION: Small bibasilar pleural effusions, with increased bibasilar compressive atelectasis versus evolving bronchopneumonia. Dictated and approved by: Barron Sheridan M.D. on 02/24/2017 at 17:50 CT BRAIN WITHOUT CONTRAST IMPRESSION: 1. No acute intracranial abnormalities. 2. Nonacute bilateral caudate nuclei lacunar infarcts as before. Dictated and approved by: Barron Sheridan M.D. on 02/24/2017 at 17:46 US BILATERAL DUPLEX DOPPLER IMAGING OF THE CAROTIDS IMPRESSION: 1. Less than 50% bilateral internal carotid artery stenosis. 2. Antegrade vertebral artery flow bilaterally. Dictated and approved by: Rosette Espinoza M.D. on 02/25/2017 at 10:38 PROCEDURE: X-RAY CHEST ONE VIEW, PORTABLE ([id number]) INDICATIONS: SHORTNESS OF BREATH TECHNIQUE: One view of the chest was acquired. COMPARISON: [facility], CR, XR CHEST 1VW (PORTABLE), 02/24/2017, 16: 33. FINDINGS: Surgical changes and devices: Stable position of left chest cardiac pacemaker. Lungs and pleura: Slight interval decrease in the mid/basilar airspace opacities and persistent small effusions present. Mediastinum: Mediastinal contours appear normal. Heart size is normal. Bones and chest wall: No suspicious bony lesions. Overlying soft tissues appear unremarkable. IMPRESSION: Bibasilar pneumonia and small pleural effusion slightly decreased from prior exam. Dictated by: Oscar Holder RRA Interpreted: Devora Ordoñez MD on 03/09/2017 at 11: 17 Transcribed by: LEONOR on 03/09/2017 at 11:18 Approved by: Devora Ordoñez M.D. on 03/09/2017 at 15:50 Cardiac Echo Impressions Echocardiogram Report The left ventricle is mildly dilated. The ejection fraction is estimated to be 25-30%. There is severe hypokinesis of the mid and distal septum, and akinesis of the septum and posterior wall. The anterior wall is hypokinetic and in apical inferior wall is akinetic. The right ventricle is mildly dilated. There is severe biatrial enlargement. There is moderate to severe mitral regurgitation. The aortic valve is mildly calcified. There is moderate tricuspid regurgitation. The right ventricular systolic pressure is estimated at 75 mmHg assuming a right atrial pressure of 15 mm Hg. Electronically signed by: Luis Cornell on Reading Physician:02/27/2017 03:08 PM Additional Diagnostics X-RAY BARIUM SWALLOW ESOPHAGUS IMPRESSION: Very limited exam showing no evidence of laryngeal penetration or aspiration with thin through thick barium products. Deglutition and initial peristalsis appeared adequate. There is no high-grade obstruction in the mid or distal esophagus. Dictated and approved by Ed Catalan M.D. on 02/27/2017 at 16:06 X-RAY BARIUM SWALLOW ESOPHAGUS IMPRESSION: Limited study quality due to the dilatation of the patient, but the study does allow assessment for presence of mass lesion or esophageal stricture. There is esophageal dysmotility, but no sign of mass or stricture. Dictated and approved by: Ermias Major M.D. on 03/02/2017 at 13:25 US VEINOUS LEG DUPLEX UNILATERAL, LEFT IMPRESSION: No deep venous thrombosis identified within the left lower extremity. Dictated by: Oscar GOMEZ Interpreted: Devora Ordoñez MD on 03/06/2017 at 16: 58 Approved by: Devora Ordoñez M.D. 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 Hospital day 10. 1. Acute blood loss anemia and GI bleed most likely secondary to supratherapeutic INR, present on admission. The bleeding appears to have stopped. - Hemoglobin and hematocrit continuing to improve and/or remain stable. No further red blood cell transfusions have been needed. -History of positive stool occult blood one month prior after initiating warfarin therapy for left lower extremity DVT - Gastroenterology has been consulted for likely upper intestinal bleed given history of chronic full dose aspirin, positive stool cold blood at last admission, increased BUN, report of melena, and significant lower hemoglobin than at baseline -The patient's does not wish for any "invasive" procedures such as an upper endoscopy or a colonoscopy, so a barium swallow study was done by Dr. Soares to evaluate dysphagia. The results were limited due to the patient's decreased level of consciousness at the time. Dr. Soares's progress note () suggested a possible repeat barium swallow to work up a possible obstruction and/or neoplasm. Barium swallow performed on 2016 and showed evidence for esophageal dysmotility, but no sign of mass or stricture. -Home anticoagulation meds included warfarin and clopidogrel. Dr. Tucker and Dr. Thompson discussed with the patient's Katty the risks and benefits of continuing anticoagulation in light of his deep venous thrombosis and transient ischemic attack history, contrasted with his increasing risk of falls. His understands, and wishes for him to continue on only clopidogrel and aspirin at home upon discharge. Venous Doppler performed on 03/06/2017 shows. "No deep venous thrombosis identified within the left lower extremity". - Continue holding all anticoagulation for now, since source of bleeding unknown. -Continue dysphagia diabetic diet with the patient's would like an ENT consultation. Therefore, I contacted Dr. Song Burgos who agreed to see the patient today in consultation. - Continue oral Protonix. 2. Acute on chronic kidney injury, present on admission. Active and slightly worse. - Most likely due to prerenal azotemia - Creatinine and BUN have stabilized on gentle IV hydration - Nephrology consulted, we appreciated their input. Per nephrology recent worsening of renal function likely due to dehydration. Torsemide will be held again today and IV fluids are continued. - Avoid nephrotoxic agents the patient's is refusing to allow him to have Protonix as she believes that this might be nephrotoxic. - Espino catheter removed. Assistance at all times when ambulating. - The torsemide is now on hold -- One time furosemide IV 100 was given by nephrology on 03/04/2017. 3. Chronic systolic congestive heart failure, present on admission, active - Ejection fraction of 35-40% from echo done on 01/10/2017 with severe pulmonary hypertension - Recent echo preformed on 02/26/2017 revealed worsening cardiac function with ejection fraction of 25-30%, severe hypokinesis of the mid and distal septum, and akinesis of the septum and posterior wall, severe biatrial enlargement, moderate to severe mitral regurgitation, mildly calcified aortic valve and moderate tricuspid regurgitation - Due to the fact that the patient's is against any additional procedures, cardiology has not been consulted - We will have physical therapy continue to evaluate and treat the patient. 4. Hypotension, present on admission, improved -Blood pressure is within normal limits today -Continue to hold all diuresis and all blood pressure medications - Continue physical therapy to assess ambulatory safety. 5. Possible TIA, present on admission, improving -CT scan negative, patient's declines MRI even though patient has MRI compatible pacemaker -Ultrasound of the carotids: Less than 50% bilateral internal carotid artery stenosis. Antegrade vertebral artery flow bilaterally -Continue to monitor - Continue speech therapy 6. Hematoma around pacemaker, chronic, stable -Cardiology has examined and states that this is actually improved from the patient's baseline no further treatment needed just continue to monitor - There is no evidence for cellulitis or infection. 7. Elevated troponins of uncertain significance, present on admission, active -Most likely stress-induced -Troponins 0.104-->0.100-->0.115 -Cardiology was following, pacemaker has been interrogated and is working appropriately 8. Recent history of left lower extremity DVT (01/09/17), currently stable -We held all anticoagulation on admissionpatient had an INR that was supratherapeutic and he had evidence of GI bleeding. -Repeat venous Doppler ultrasound was negative for DVT in the left lower extremity where it was present for. See "DVT prophylaxis" below. 9. Type II diabetes Controlled with diet. Continue dysphagia diabetic diet. DVT prophylaxis: -Home anticoagulation meds included warfarin and clopidogrel. Dr. Tucker and Dr. Thompson discussed with the patient's Katty the risks and benefits of continuing anticoagulation in light of his deep venous thrombosis and transient ischemic attack history, contrasted with his increasing risk of falls. His understands, and wishes for him to continue on only clopidogrel and aspirin at home upon discharge. Venous Doppler performed on 03/06/2017 shows. "No deep venous thrombosis identified within the left lower extremity". Disposition: patient seems medically stable, likely home in 1-2days, with or without hospice, appreciate nephrology input GI Prophylaxis: Proton Pump Inhibitor VTE Prophylaxis: Other (Holding warfarin due to suspected gastrointestinal bleeding) VTE Mechanical Devices: Intermittant Pneumatic CD Resuscitation Status: Limited Interventions Limited Interventions: Compressions, Cardioversion/Defibrillation, BiPAP, Medications and IV Fluid Time spent 35 minutes Shannan Jenkins MD Mar 12, 2017 11:38
--- NOTE | 2017-03-12 15:48 | NUR ---
NUTRITION FOLLOW-UP: ASSESS: 82 YO Male admitted for AMS, increasing fatigue, GI bleed, lethargy, and slurred speech. ST has placed pt on dysphagia diet with NT liquids and pt has been tolerating this diet well. 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 ENT consult ordered 2/2 esophageal dysmotility issues. PMHX: HTN, [place], CAD, CHF, pulmonary hypertension, T2DM, chronic kidney injury LABS: Reviewed. BUN 131, Cr 3.4, Alb 2.9 MEDS: Reviewed. GI: BM x 1 (03/12) CURRENT WTS: 87.7 kg. admit wt 76.8 kg (fluid wt gain) DIET: Dysphagia [place] Thick, Mag Cup/Glucerna on trays. PO 25-75% EST. NEEDS: SHMUEL Kcals: 6467-1985 kcal/day (25-30 kcal/kg) Pro: 65-80 g/day (0.8-1.0 g/kg) NUTRITION DIAGNOSIS: 1.) Chew/swallow difficulty related to dysphagia and poor dentition as evidence by need for dysphagia mechanical diet w/NT liquids per [facility] 2.) Altered nutrition related laboratory values related to kidney dysfunction as evidenced by elevated BUN/Creatinine. NUTRITION INTERVENTION: 1.) Continue with supplements to help with adequate po intake. 2.) Continue diet per ST 3.) Recommend modify diet to Renal with elevated Renal labs. Will modify supplement to pre-renal supplement. MONITOR / EVAL: PO intake, labs, weights, GI, nutrition status. Will continue to monitor per moderate nutrition risk guidelines.
--- NOTE | 2017-03-12 16:25 | NUR ---
Edema Patient has pitting edema bilateral hands to elbows, non pitting edema above arms. Some weeping from lower arms. Bilateral pitting edema from feet to mid thigh with areas of weeping. Stop IV fluids per nephrology.
--- NOTE | 2017-03-12 16:29 | PCM.PNNEPH ---
Subjective Date of Service Mar 12, 2017 Subjective feeling weak. LE swelling, weeping on both legs. Exam Vital Signs Vital Sign - Last Date Time Temp Pulse Resp B/P Pulse Ox O2 Delivery O2 Flow Rate FiO2 03/12/17 15:50 Room Air 03/12/17 11:33 35.3 58 18 104/56 99 03/09/17 00:39 2.00 Intake and Output 03/11/17 03/11/17 03/12/17 Cumulative From/Thru 15:00 23:00 07:00 02/24/17 16:17 - 03/12/17 06:04 Intake Total 2133 ml 2095 ml 36854 ml Output Total 250 ml 7360 ml Balance 1883 ml 2095 ml 51576 ml Intake Oral 725 ml 17194 ml IV Total 1408 ml 2095 ml 15764 ml Output Urine Total 250 ml 7360 ml # Voids 35 # Bowel Movements 1 12 Exam Gen.: Elderly male sitting up in no acute distress appearing approximately stated age Eyes: Pupils equal round and reactive to light, extraocular motion intact, anicteric sclera, noninjected conjunctiva HENT: Normocephalic atraumatic, moist mucous membranes, no central cyanosis, oropharynx clear Neck: Supple, trachea midline, (+) JVD, no lymphadenopathy Cardiovascular: regularly regular rate and rhythm. Lungs: clear breath sounds bilaterally with good air movement which is improved from days prior, no bronchial or wheezing noted Abdomen: Normoactive bowel sounds, soft, nontender, no organomegaly, tympanic to percussion Extremities: 3+ edema. Lab and Diagnostics Result Diagram: 03/12/17 0845 03/12/17 0845 Microbiology Blood cultures are negative. MRSA screen is negative. Urine for eosinophils is negative. X-Rays, CTs and MRIs X-RAY CHEST IMPRESSION: Small bibasilar pleural effusions, with increased bibasilar compressive atelectasis versus evolving bronchopneumonia. Dictated and approved by: Barron Sheridan M.D. on 02/24/2017 at 17:50 CT BRAIN WITHOUT CONTRAST IMPRESSION: 1. No acute intracranial abnormalities. 2. Nonacute bilateral caudate nuclei lacunar infarcts as before. Dictated and approved by: Barron Sheridan M.D. on 02/24/2017 at 17:46 US BILATERAL DUPLEX DOPPLER IMAGING OF THE CAROTIDS IMPRESSION: 1. Less than 50% bilateral internal carotid artery stenosis. 2. Antegrade vertebral artery flow bilaterally. Dictated and approved by: Rosette Espinoza M.D. on 02/25/2017 at 10:38 PROCEDURE: X-RAY CHEST ONE VIEW, PORTABLE ([id number]) INDICATIONS: SHORTNESS OF BREATH TECHNIQUE: One view of the chest was acquired. COMPARISON: [facility], CR, XR CHEST 1VW (PORTABLE), 02/24/2017, 16: 33. FINDINGS: Surgical changes and devices: Stable position of left chest cardiac pacemaker. Lungs and pleura: Slight interval decrease in the mid/basilar airspace opacities and persistent small effusions present. Mediastinum: Mediastinal contours appear normal. Heart size is normal. Bones and chest wall: No suspicious bony lesions. Overlying soft tissues appear unremarkable. IMPRESSION: Bibasilar pneumonia and small pleural effusion slightly decreased from prior exam. Dictated by: Oscar Holder RRA Interpreted: Devora Ordoñez MD on 03/09/2017 at 11: 17 Transcribed by: LEONOR on 03/09/2017 at 11:18 Approved by: Devora Ordoñez M.D. on 03/09/2017 at 15:50 Cardiac Echo Impressions Echocardiogram Report The left ventricle is mildly dilated. The ejection fraction is estimated to be 25-30%. There is severe hypokinesis of the mid and distal septum, and akinesis of the septum and posterior wall. The anterior wall is hypokinetic and in apical inferior wall is akinetic. The right ventricle is mildly dilated. There is severe biatrial enlargement. There is moderate to severe mitral regurgitation. The aortic valve is mildly calcified. There is moderate tricuspid regurgitation. The right ventricular systolic pressure is estimated at 75 mmHg assuming a right atrial pressure of 15 mm Hg. Electronically signed by: Luis Cornell on Reading Physician:02/27/2017 03:08 PM Additional Diagnostics X-RAY BARIUM SWALLOW ESOPHAGUS IMPRESSION: Very limited exam showing no evidence of laryngeal penetration or aspiration with thin through thick barium products. Deglutition and initial peristalsis appeared adequate. There is no high-grade obstruction in the mid or distal esophagus. Dictated and approved by Ed Catalan M.D. on 02/27/2017 at 16:06 X-RAY BARIUM SWALLOW ESOPHAGUS IMPRESSION: Limited study quality due to the dilatation of the patient, but the study does allow assessment for presence of mass lesion or esophageal stricture. There is esophageal dysmotility, but no sign of mass or stricture. Dictated and approved by: Ermias Major M.D. on 03/02/2017 at 13:25 US VEINOUS LEG DUPLEX UNILATERAL, LEFT IMPRESSION: No deep venous thrombosis identified within the left lower extremity. Dictated by: Oscar JOHNSON Interpreted: Devora Ordoñez MD on 03/06/2017 at 16: 58 Approved by: Devora Ordoñez M.D. on 03/06/2017 at 22:47 Plan Impression 1. Acute kidney injury on chronic kidney disease stage III, present on admission 2. Chronic systolic congestive heart failure (HFrEF), present on admission 3. Left lower extremity deep vein thrombosis, present on admission, chronic 4. Acute blood loss anemia, present on admission 5. Encephalopathy, present on admission, acute 6. Dysphasia, present on admission, acute 7. Gastroesophageal reflux disease, present on admission, chronic 8. Chronic Diabetes mellitus type II, present on admission 9. Chronic coronary artery disease, present on admission 10. Chronic hypertension, present on admission Plan: D/c IVF resume IV loop diuretics. repeat BMP in am. Marisel Newman MD Mar 12, 2017 16:29
--- NOTE | 2017-03-12 16:57 | NUR ---
Pt's requested [employer]ona quote for bedside commode and SW provided quote of $119 from [employer]
[2017-03-12] MEDS: Furosemide 10 mg/mL 4 mL Inj IVPUSH SCH (17:21)
[2017-03-13] VITALS (8 sets, daily range): BP systolic 77–142; BP diastolic 51–74; PULSE 60–64; RESP 18–24; O2SAT 93–98
[2017-03-13] MEDS: Furosemide 10 mg/mL 4 mL Inj IVPUSH SCH ×2 (00:08→08:10)
--- NOTE | 2017-03-13 05:45 | NUR ---
Noc activity Pt does not appear to be in chest pain, sob, or abd discomfort. Observed pt getting a little wobbly and foot dragging on the floor while walking. Explained to that the pt is too unstable while transferring. Pt's still insist on pt walking with assistance. Telemetry monitoring noted av-paced. VSS, and afebrile overnight.
[2017-03-13 07:23] LABS: Magnesium 2.4 mg/dL (1.6-2.6); Phosphorus 6.3 mg/dL (2.5-4.9)
[2017-03-13 07:35] LABS: Mean Corpuscular Hemoglobin 28.1 pg (27.0-35.0); Mean Corpuscular Volume 83.9 fL (81-100); Platelet Count 58 bil/L (150-400)
[2017-03-13 08:41] LABS: BASOPHILS % (AUTO) 0 % (0-3); EOSINOPHILS % (AUTO) 0 % (0-5); MONOCYTES % (AUTO) 2 % (4-12); NEUTROPHILS % (AUTO) 92 % (40-74)
--- NOTE | 2017-03-13 11:54 | PCM.PNPALL ---
Date of Service Mar 13, 2017 Date of Hospital Admission: Feb 24, 2017 at 18:37 Date of Palliative Consult: Feb 28, 2017 Palliative Care Recommendation 82-year-old patient admitted with supratherapeutic INR and associated probable GI bleed with acute anemia, acute on chronic renal failure and altered mental status. Palliative medicine consulted to assist patient and family and determination of goals of care. At this time, patient and his are very firmly fixed on their wishes (see below). Therefore, palliative medicine will sign off at this time- please contact us if we may be of further assistance. Note that a POLST was completed for him, but his (after agreeing to each portion of the document) refused to sign it for now. The unsigned document is in his paper chart. Summary of palliative recommendations 03/13/17- General level of mentation has improved with less lethargy but still minimal communication. CV-renal status remains poor. Massive edema with minimal response to IV furosemide.-Labs very prerenal. PO intake much improved. His continues to hope he will just get better. She does not accept that he is near end of life. Changing his code status for her is like pulling the plug. Encouraged contacting her scientologist for emotional support as well as finding a lawn care specialist she would be comfort able with. Hopefully her daughter will have insight into their situation. In the meantime she will need help to bridge until daughter arrives. -Symptom management (Pain/other) AMS-unclear as to specific cause unless relates to CVAs or uremia; likely multifactorial with acute on chronic components. Still significant AMS compared to baseline 2 months ago per patient's . CRI with uremia-may certainly be contributing to weakness Ischemic cardiomyopathy-unclear if symptomatic although there was mention of CP on admit. Goals of care- patient's speaks for him. She expects aggressive care and management until it is defined that there is nothing to be done and then to have him at home to . She states this is his stated goal as well. Unclear if she will be willing to involve hospice even at that point, though. -DPOA/Advanced Directives/POLST- His states advanced directive completed but no copy in chart or in [employer]. Per patient's , he is a candidate for aggressive resuscitation including CPR/defibrillation but is NOT to be intubated . Return to hospital/IV fluids/medications including antibiotics are all approved, but she is ambivalent about artificial nutrition. Today, I reviewed all the above again with his and worked on a POLST form with her. After completing it, however, she refused to sign it, saying that she wanted to think about it some more. I left it in the front pocket of the chart and will review it with her briefly again on 03/02. -Family/emotional support- I believe they could use more support going forward. She states she is willing to consider this. Advised she ask CM/SS here or with HH to assist in this regard. -Spiritual support- She states they are adequately supported and is not interested in anything further. Additional Medical Diagnoses with primary management by Hospitalist team include : 1. Acute blood loss anemia and GI bleed most likely secondary to supratherapeutic INR, present on admission. Active 2. Acute on chronic kidney injury, present on admission. Active 3. Chronic systolic congestive heart failure, present on admission, active 4. Hypotension, present on admission, improved 5. Possible TIA, present on admission, improving 6. Hematoma around pacemaker, chronic, stable 7. Elevated troponins of uncertain significance, present on admission, active 8. Recent history of left lower extremity DVT (01/09/17), currently stable Problems: End of Life Preferences Home to if no other intervention indicated or helpful, though for now he continues to be full resuscitation with the exception of intubation Goals of Care Goal is to go home Disposition Home with HH Resuscitation Status Resuscitation Status: Limited Interventions Limited Interventions: Compressions, Cardioversion/Defibrillation, BiPAP, Medications and IV Fluid POLST Updates/Changes Previous POLST?: No POLST Discussed with: Health Care Agent ([facility]) POLST Review Outcome: New Form Completed (but remains unsigned) . Pain: None Symptom management: Delirium Palliative Subjective Palliative Care Daily Responde: Patient, Family/Proxy (his who is his spokesperson), Team, Nurse Brief History 82 yo gentleman with dx of cardio-renal syndrome with CHF and reduced EF of 25- 30% and extensive focal wall abnormality as well as CRF and now markedly prerenal. He was admitted with AMS, slurred speech and near obtundation. The latter has improved now up in a chair, does not respond verbally to questions but does with action to any prompt from his . It is unclear what he thinks about discussions going on. Palliative is asked to re-engage due to decision by renal not to dialyze and re- eval goals of care. Patient/Family Concerns His 's goal is to keep him alive but also to have him at home. She feels the hospital breaks his spirit. She also feels that we should be able to repair his heart and his kidneys. Palliative Performance Scale PPS Patient Status: Baseline PPS Ambulation: Reduced (walked with a walker before this admission) PPS Activity: Unable to do most activity PPS Self-Care: 1 person assist PPS Intake: Normal or reduced PPS Conscious Level: Full, Full or confusion Performace Scale: 50% ADLs ADL Patient Status: Current ADL Ambulation: Reduced ADL Dressing: Considerable assistance required ADL Feeding: Occasional assistance necessary ADL Hygene/bathing: Considerable assistance required ADL Transfers: Considerable assistance required Responsive Patient Symptoms Pain (current): None Pain (minimum): None Pain (maximium): None Tiredness/Fatigue: Moderate Nausea: None Drowsiness/Sleepiness: Moderate Anorexia: Moderate Delirium Improved with better alertness and function OTHER ROS:-chronic dysphagia-chokes on thin liquids- OK with thickened. his defines good appetite chronic edema Objective Findings Exam Vital Sign - Last Date Time Temp Pulse Resp B/P Pulse Ox O2 Delivery O2 Flow Rate FiO2 03/13/17 10:38 60 03/13/17 10:08 18 100/67 98 Room Air 03/13/17 06:12 35.0 03/09/17 00:39 2.00 Intake and Output 03/12/17 03/12/17 03/13/17 Cumulative From/Thru 15:00 23:00 07:00 02/24/17 16:17 - 03/13/17 06:12 Intake Total 0 ml 300 ml 0 ml 79490 ml Output Total 150 ml 7510 ml Balance -150 ml 300 ml 0 ml 74582 ml Intake Oral 0 ml 300 ml 0 ml 52065 ml IV Total 19030 ml Output Urine Total 150 ml 7510 ml # Voids 2 1 38 # Bowel Movements 1 1 1 15 General: Alert, Other (up in chair, comfortable, respondeds to prompts from his -looks at her and nods or shakes his head or reaches for bottle of thickened water etc, then drops head to nap) HEENT: Other (moderately severe ectropia syl lower lids with tearing, CN grossly intake, dentitian poor, teeth caked, blackened) Heart: Regular Rate/Rhythm Lungs: Diminished Abdomen: Other Neuro: Cranial Nerve 3-12 Intact, Other (sleeps and barely arousable-- then arouses spontaneously for a few min, responds and is back to sleep) Extremities: Edema (3+, weeping, tense) Skin: Other (extensive solar damage) Lab/Diagnostics Lab and Imaging results reviewed in detail in EMR. CR 3.5 BUN 140 HCO3-13 Patient/Family Conference Members Present Family Members Present patient but not interactive, Medical Team Members Present? [facility] Discussion/Goals of Care Discussion FAMILY UNDERSTANDING OF DISEASE: Reviewed with patient's regarding goals of care. She reiterates that she wants him home. She will only take him home- SNF etc will never be an option She trusts [facility] who has been sending people in otherwise has some issues with different races etc so is not open to other "caregivers" She does not want hospice since they "only care for him so he dies" and it would "break her spirit" to have them around. She states she would trust someone from their scientologist and said she would ask the chualar for advise. She feels the bedrest in the hospital has been part of the problem and she has much discontent about his care. She does not understand why things can't be fixed. At this point she continues to be determined that he will be able to improve his heart and kidneys. She wants to do that as an outpatient. She intends to see Dr. Leiva and their PCP as an OP to see what needs to be done to fix him. She has been told by Dr. Bell and Mika that dialysis is not an option-based on this being cardiorenal and his general debility is profound. He responds to her and any request she has. She refuses to have him go back to bed from his chair "to strengthen him". She encourages ensure/thickened water regularly. We focused on the goal of home and the best options for keeping him home even if his condition deteriorates. Reviewed the challenges of getting to appt as he weakens etc. Their daughter is arriving from [facility] in 10 days and will stay at least 3 weeks if not longer. It has been 2 years since she has seen them. Offered a family conference when she arrives even if patient discharged if they are interested. DISEASE PROGRESSION/EVIDENCE OF DECLINE: SYMPTOM BURDEN: GOALS: Home Palliative Care counselled: Time spent Total time 65 minutes; >50% face to face with patient and/or family, providing counselling regarding plans and recommendations, and in care coordination with his/her medical teams. time includes review of hospital course, labs, imaging, discussion with Dr. Brennan , Dr. Jenkins, CM and in family conference with his . Code status unchanged I also spent an additional [ ] minutes counseling for advanced care planning with the patient/the patients family/the surrogate decision maker. copies to: Jakob Bell DO; Trent Leiva MD, Deborah A MD Mar 13, 2017 11:54
--- NOTE | 2017-03-13 12:41 | PCM.PNMED ---
Subjective Date of Service Mar 13, 2017 Subjective Patient was seen by yesterday, recommended lasix trial today, Cr seemed stable, pt denied any complaints, looked comfortable Exam Vital Signs Vital Sign - Last Date Time Temp Pulse Resp B/P Pulse Ox O2 Delivery O2 Flow Rate FiO2 03/13/17 10:38 60 03/13/17 10:08 18 100/67 98 Room Air 03/13/17 06:12 35.0 03/09/17 00:39 2.00 Intake and Output 03/12/17 03/12/17 03/13/17 Cumulative From/Thru 15:00 23:00 07:00 02/24/17 16:17 - 03/13/17 06:12 Intake Total 0 ml 300 ml 0 ml 90927 ml Output Total 150 ml 7510 ml Balance -150 ml 300 ml 0 ml 59519 ml Intake Oral 0 ml 300 ml 0 ml 58804 ml IV Total 78248 ml Output Urine Total 150 ml 7510 ml # Voids 2 1 38 # Bowel Movements 1 1 1 15 Exam NAD, comfortably laying down on the bed no JVD, MMM, no LAD RRR, nl s1, s2 no mrg Poor inspiratory effort, increased breathing sounds bilaterally, no w,c S,ND,NT,normoactive BS+ warm, 2+pitting edema bilaterally, scatter minor ulcers in LE, oozing, mild erythema, IVs and Medications Medications Reviewed: Medications were reviewed in detail Lab and Diagnostics Result Diagram: 03/13/1752703/13/17527 Microbiology Blood cultures are negative. MRSA screen is negative. Urine for eosinophils is negative. X-Rays, CTs and MRIs X-RAY CHEST IMPRESSION: Small bibasilar pleural effusions, with increased bibasilar compressive atelectasis versus evolving bronchopneumonia. Dictated and approved by: Barron Sheridan M.D. on 02/24/2017 at 17:50 CT BRAIN WITHOUT CONTRAST IMPRESSION: 1. No acute intracranial abnormalities. 2. Nonacute bilateral caudate nuclei lacunar infarcts as before. Dictated and approved by: Barron Sheridan M.D. on 02/24/2017 at 17:46 US BILATERAL DUPLEX DOPPLER IMAGING OF THE CAROTIDS IMPRESSION: 1. Less than 50% bilateral internal carotid artery stenosis. 2. Antegrade vertebral artery flow bilaterally. Dictated and approved by: Rosette Espinoza M.D. on 02/25/2017 at 10:38 PROCEDURE: X-RAY CHEST ONE VIEW, PORTABLE ([id number]) INDICATIONS: SHORTNESS OF BREATH TECHNIQUE: One view of the chest was acquired. COMPARISON: [facility], CR, XR CHEST 1VW (PORTABLE), 02/24/2017, 16: 33. FINDINGS: Surgical changes and devices: Stable position of left chest cardiac pacemaker. Lungs and pleura: Slight interval decrease in the mid/basilar airspace opacities and persistent small effusions present. Mediastinum: Mediastinal contours appear normal. Heart size is normal. Bones and chest wall: No suspicious bony lesions. Overlying soft tissues appear unremarkable. IMPRESSION: Bibasilar pneumonia and small pleural effusion slightly decreased from prior exam. Dictated by: Oscar Holder RRGordon Interpreted: Devora Ordoñez MD on 03/09/2017 at 11: 17 Transcribed by: LEONOR on 03/09/2017 at 11:18 Approved by: Devora Ordoñez M.D. on 03/09/2017 at 15:50 Cardiac Echo Impressions Echocardiogram Report The left ventricle is mildly dilated. The ejection fraction is estimated to be 25-30%. There is severe hypokinesis of the mid and distal septum, and akinesis of the septum and posterior wall. The anterior wall is hypokinetic and in apical inferior wall is akinetic. The right ventricle is mildly dilated. There is severe biatrial enlargement. There is moderate to severe mitral regurgitation. The aortic valve is mildly calcified. There is moderate tricuspid regurgitation. The right ventricular systolic pressure is estimated at 75 mmHg assuming a right atrial pressure of 15 mm Hg. Electronically signed by: Luis Cornell on Reading Physician:02/27/2017 03:08 PM Additional Diagnostics X-RAY BARIUM SWALLOW ESOPHAGUS IMPRESSION: Very limited exam showing no evidence of laryngeal penetration or aspiration with thin through thick barium products. Deglutition and initial peristalsis appeared adequate. There is no high-grade obstruction in the mid or distal esophagus. Dictated and approved by Ed Catalan M.D. on 02/27/2017 at 16:06 X-RAY BARIUM SWALLOW ESOPHAGUS IMPRESSION: Limited study quality due to the dilatation of the patient, but the study does allow assessment for presence of mass lesion or esophageal stricture. There is esophageal dysmotility, but no sign of mass or stricture. Dictated and approved by: Ermias aMjor M.D. on 03/02/2017 at 13:25 US VEINOUS LEG DUPLEX UNILATERAL, LEFT IMPRESSION: No deep venous thrombosis identified within the left lower extremity. Dictated by: Oscar GOMEZ Interpreted: Devora Ordoñez MD on 03/06/2017 at 16: 58 Approved by: Devora Ordoñez M.D. 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 Hospital day 10. patient is clinically stable with current management, appreciate nephrology/ palliative care input to optimize dispo 1. Acute blood loss anemia and GI bleed most likely secondary to supratherapeutic INR, present on admission. The bleeding appears to have stopped. - Hemoglobin and hematocrit continuing to improve and/or remain stable. No further red blood cell transfusions have been needed. -History of positive stool occult blood one month prior after initiating warfarin therapy for left lower extremity DVT - Gastroenterology has been consulted for likely upper intestinal bleed given history of chronic full dose aspirin, positive stool cold blood at last admission, increased BUN, report of melena, and significant lower hemoglobin than at baseline -The patient's does not wish for any "invasive" procedures such as an upper endoscopy or a colonoscopy, so a barium swallow study was done by Dr. Soares to evaluate dysphagia. The results were limited due to the patient's decreased level of consciousness at the time. Dr. Soares's progress note () suggested a possible repeat barium swallow to work up a possible obstruction and/or neoplasm. Barium swallow performed on 2016 and showed evidence for esophageal dysmotility, but no sign of mass or stricture. -Home anticoagulation meds included warfarin and clopidogrel. Dr. Tucker and Dr. Thompson discussed with the patient's Katty the risks and benefits of continuing anticoagulation in light of his deep venous thrombosis and transient ischemic attack history, contrasted with his increasing risk of falls. His understands, and wishes for him to continue on only clopidogrel and aspirin at home upon discharge. Venous Doppler performed on 03/06/2017 shows. "No deep venous thrombosis identified within the left lower extremity". - Continue holding all anticoagulation for now, since source of bleeding unknown. -Continue dysphagia diabetic diet with the patient's would like an ENT consultation. Therefore, I contacted Dr. Song Burgos who agreed to see the patient today in consultation. - Continue oral Protonix. 2. Acute on chronic kidney injury, present on admission. Active and slightly worse. - Most likely due to prerenal azotemia - Creatinine and BUN have stabilized on gentle IV hydration - Nephrology consulted, we appreciated their input. Per nephrology recent worsening of renal function likely due to dehydration. Torsemide will be held again today and IV fluids are continued. - Avoid nephrotoxic agents the patient's is refusing to allow him to have Protonix as she believes that this might be nephrotoxic. - Espino catheter removed. Assistance at all times when ambulating. - The torsemide is now on hold -- One time furosemide IV 100 was given by nephrology on 03/04/2017. 3. Chronic systolic congestive heart failure, present on admission, active - Ejection fraction of 35-40% from echo done on 01/10/2017 with severe pulmonary hypertension - Recent echo preformed on 02/26/2017 revealed worsening cardiac function with ejection fraction of 25-30%, severe hypokinesis of the mid and distal septum, and akinesis of the septum and posterior wall, severe biatrial enlargement, moderate to severe mitral regurgitation, mildly calcified aortic valve and moderate tricuspid regurgitation - Due to the fact that the patient's is against any additional procedures, cardiology has not been consulted - We will have physical therapy continue to evaluate and treat the patient. 4. Hypotension, present on admission, improved -Blood pressure is within normal limits today -Continue to hold all diuresis and all blood pressure medications - Continue physical therapy to assess ambulatory safety. 5. Possible TIA, present on admission, improving -CT scan negative, patient's declines MRI even though patient has MRI compatible pacemaker -Ultrasound of the carotids: Less than 50% bilateral internal carotid artery stenosis. Antegrade vertebral artery flow bilaterally -Continue to monitor - Continue speech therapy 6. Hematoma around pacemaker, chronic, stable -Cardiology has examined and states that this is actually improved from the patient's baseline no further treatment needed just continue to monitor - There is no evidence for cellulitis or infection. 7. Elevated troponins of uncertain significance, present on admission, active -Most likely stress-induced -Troponins 0.104-->0.100-->0.115 -Cardiology was following, pacemaker has been interrogated and is working appropriately 8. Recent history of left lower extremity DVT (01/09/17), currently stable -We held all anticoagulation on admissionpatient had an INR that was supratherapeutic and he had evidence of GI bleeding. -Repeat venous Doppler ultrasound was negative for DVT in the left lower extremity where it was present for. See "DVT prophylaxis" below. 9. Type II diabetes Controlled with diet. Continue dysphagia diabetic diet. DVT prophylaxis: -Home anticoagulation meds included warfarin and clopidogrel. Dr. Tucker and Dr. Thompson discussed with the patient's Katty the risks and benefits of continuing anticoagulation in light of his deep venous thrombosis and transient ischemic attack history, contrasted with his increasing risk of falls. His understands, and wishes for him to continue on only clopidogrel and aspirin at home upon discharge. Venous Doppler performed on 03/06/2017 shows. "No deep venous thrombosis identified within the left lower extremity". Disposition: patient seems medically stable, likely home tomorrow. GI Prophylaxis: Proton Pump Inhibitor VTE Prophylaxis: Other (Holding warfarin due to suspected gastrointestinal bleeding) VTE Mechanical Devices: Intermittant Pneumatic CD, Venous Foot Pump Resuscitation Status: Limited Interventions Limited Interventions: Compressions, Cardioversion/Defibrillation, BiPAP, Medications and IV Fluid Time spent 35 minutes Shannan Jenkins MD Mar 13, 2017 12:41
--- NOTE | 2017-03-13 13:07 | NUR ---
Social Work: Continued Discharge Planning D: EMR reviewed. Pt is on day 17 of hopsitalization for altered mental status. Pt discussed in am rounds. Pt is not medically cleared for discharge. He is in renal failure, with PT recommending SNF. Palliative consult was ordered and the pt's stated they are not willing to consider to SNF or hospice. She does not want to talk about fact that pt is dying because it "breaks their spirit". SW met with pt and at bedside to reiterate recommendations and provide options for private in-home caregiving. Explained what these services would entail and why they might be needed. Pt's stated she would look into these options. Pt's spouse adamantly declines SNF and states that she wishes to take pt home with [facility]. SW will continue to follow. A: Pt who would benefit from and is refusing SNF P: Anticipate pt to discharge home with [facility] for RN, PT, ST. SW provided options for in-home private caregivers. SW to continue to follow. ELEAZAR Pineda
--- NOTE | 2017-03-13 13:15 | NUR ---
Pt refusing staff to help pt to bed for bladder scanner, bladder scanned pt in the recliner which showed 82cc. Addendum: 03/13/17 at 1317 by INDY FIGUEROA Amended: Links added.
--- NOTE | 2017-03-13 17:09 | PCM.PNNEPH ---
Subjective Date of Service Mar 13, 2017 Subjective He is doing about the same, somnolence, not following commands. IVF was discontinue due to worsening LE swelling. IV lasix was administered without any response. BUN and Cr worsen. Exam Vital Signs Vital Sign - Last Date Time Temp Pulse Resp B/P Pulse Ox O2 Delivery O2 Flow Rate FiO2 03/13/17 16:35 139/68 03/13/17 16:13 60 22 93 Room Air 03/13/17 06:12 35.0 03/09/17 00:39 2.00 Intake and Output 03/12/17 03/12/17 03/13/17 Cumulative From/Thru 15:00 23:00 07:00 02/24/17 16:17 - 03/13/17 06:12 Intake Total 0 ml 300 ml 0 ml 32904 ml Output Total 150 ml 7510 ml Balance -150 ml 300 ml 0 ml 45052 ml Intake Oral 0 ml 300 ml 0 ml 28285 ml IV Total 74382 ml Output Urine Total 150 ml 7510 ml # Voids 2 1 38 # Bowel Movements 1 1 1 15 Exam Gen.: frail, chronically-ill looking. somnolent. Eyes: Pupils equal round and reactive to light, extraocular motion intact, anicteric sclera, noninjected conjunctiva HENT: Normocephalic atraumatic, moist mucous membranes, no central cyanosis, oropharynx clear Neck: Supple, trachea midline, (+) JVD, no lymphadenopathy Cardiovascular: regularly regular rate and rhythm. Lungs: decreases BS at bases, no wheezing, no rhonchi. Abdomen: Normoactive bowel sounds, soft, nontender, no organomegaly, tympanic to percussion Extremities: 3+ edema. Lab and Diagnostics Result Diagram: 03/13/1752703/13/17527 Microbiology Blood cultures are negative. MRSA screen is negative. Urine for eosinophils is negative. X-Rays, CTs and MRIs X-RAY CHEST IMPRESSION: Small bibasilar pleural effusions, with increased bibasilar compressive atelectasis versus evolving bronchopneumonia. Dictated and approved by: Barron Sheridan M.D. on 02/24/2017 at 17:50 CT BRAIN WITHOUT CONTRAST IMPRESSION: 1. No acute intracranial abnormalities. 2. Nonacute bilateral caudate nuclei lacunar infarcts as before. Dictated and approved by: Barron Sheridan M.D. on 02/24/2017 at 17:46 US BILATERAL DUPLEX DOPPLER IMAGING OF THE CAROTIDS IMPRESSION: 1. Less than 50% bilateral internal carotid artery stenosis. 2. Antegrade vertebral artery flow bilaterally. Dictated and approved by: Rosette Espinoza M.D. on 02/25/2017 at 10:38 PROCEDURE: X-RAY CHEST ONE VIEW, PORTABLE ([id number]) INDICATIONS: SHORTNESS OF BREATH TECHNIQUE: One view of the chest was acquired. COMPARISON: [facility], CR, XR CHEST 1VW (PORTABLE), 02/24/2017, 16: 33. FINDINGS: Surgical changes and devices: Stable position of left chest cardiac pacemaker. Lungs and pleura: Slight interval decrease in the mid/basilar airspace opacities and persistent small effusions present. Mediastinum: Mediastinal contours appear normal. Heart size is normal. Bones and chest wall: No suspicious bony lesions. Overlying soft tissues appear unremarkable. IMPRESSION: Bibasilar pneumonia and small pleural effusion slightly decreased from prior exam. Dictated by: Oscar Holder RR Interpreted: Devora Ordoñez MD on 03/09/2017 at 11: 17 Transcribed by: LEONOR on 03/09/2017 at 11:18 Approved by: Devora Ordoñez M.D. on 03/09/2017 at 15:50 Cardiac Echo Impressions Echocardiogram Report The left ventricle is mildly dilated. The ejection fraction is estimated to be 25-30%. There is severe hypokinesis of the mid and distal septum, and akinesis of the septum and posterior wall. The anterior wall is hypokinetic and in apical inferior wall is akinetic. The right ventricle is mildly dilated. There is severe biatrial enlargement. There is moderate to severe mitral regurgitation. The aortic valve is mildly calcified. There is moderate tricuspid regurgitation. The right ventricular systolic pressure is estimated at 75 mmHg assuming a right atrial pressure of 15 mm Hg. Electronically signed by: Luis Cornell on Reading Physician:02/27/2017 03:08 PM Additional Diagnostics X-RAY BARIUM SWALLOW ESOPHAGUS IMPRESSION: Very limited exam showing no evidence of laryngeal penetration or aspiration with thin through thick barium products. Deglutition and initial peristalsis appeared adequate. There is no high-grade obstruction in the mid or distal esophagus. Dictated and approved by Ed Catalan M.D. on 02/27/2017 at 16:06 X-RAY BARIUM SWALLOW ESOPHAGUS IMPRESSION: Limited study quality due to the dilatation of the patient, but the study does allow assessment for presence of mass lesion or esophageal stricture. There is esophageal dysmotility, but no sign of mass or stricture. Dictated and approved by: Ermias Major M.D. on 03/02/2017 at 13:25 US VEINOUS LEG DUPLEX UNILATERAL, LEFT IMPRESSION: No deep venous thrombosis identified within the left lower extremity. Dictated by: Oscar Holder [facility] Interpreted: Devora Ordoñez MD on 03/06/2017 at 16: 58 Approved by: Devora Ordoñez M.D. on 03/06/2017 at 22:47 Plan Impression 1. Acute kidney injury on chronic kidney disease stage III. secondary to cardiorenal syndrome. 2. Chronic systolic congestive heart failure (HFrEF). 3. Left lower extremity deep vein thrombosis. 4. Acute blood loss anemia. 5. Severe deconditioning. 6. CHB s/p pacemaker placement. Plan: I had a discussion with his in length in terms of his overall prognosis. His functional status has significantly declined as well as his kidney function. He became edematous and again has CHF exacerbation. He has no good response with IV loop diuretics. I have discussed with Dr. Vega, Dr. Jenkins and Dr. Bell. It appears that no further option is available to cure CRS. Renal replacement therapy would allow us to manage fluid and electrolytes temporarily. Yet, it does not alter the prognosis. As a matter of fact, it can worsen his cardiac condition while being on the treatment (cardiac arrhythmia, heart attack or even sudden ). We will continue only supportive treatment. We will increase the dosage of loop diuretics. Thank you for the consultation. Marisel Newman MD Mar 13, 2017 17:09
--- NOTE | 2017-03-13 17:56 | NUR ---
weakness Pt in recliner chair for first several hrs, was willing to transfer over to the bed after lunch. was falling asleep while sitting up. is able to nod or say no when asked if in pain, etc. Katty at bedside all day. is convinced she can change his mind and get him to be more ambulatory.
--- NOTE | 2017-03-13 18:18 | NUR ---
spiritual care: follow up lengthy conversational visit with Katty. She expressed deep discouragement about turn of events, she reflected at length on previous medical experiences family has had. She described pt's role in her own health crisis several years ago and his general demeanor as "practical" and "problem solving" she shared her feelings of guilt, overwhelm and struggles with decisions as she hears medical reports from staff and has feelings that other directions of care may have been available. Part of her pain involves second guessing her decisions around the possibilities of his treatments. pt shared her sorrow at "losing everyone i love" and her fear of life without of 62 years--who she has known since age 9. tearful, reflective, sorrowful. pt shared photo of couple and requested way to share updates as she anticipates caring for him at home. blessing.
[2017-03-13] MEDS: Bumetanide 0.25 mg/mL 4 mL Inj IV SCH (20:31)
[2017-03-14] VITALS (17 sets, daily range): BP systolic 49–128; BP diastolic 29–69; PULSE 60–74; RESP 20–36; O2SAT 86–97
--- NOTE | 2017-03-14 01:13 | NUR ---
NOC 1999: tolerated amb w/ 2pa w/ FWW to toilet, then to chair for meal. 2399: back to bed w/ 2pa, sob w/ exertion, recovered slowly. tolerating RA. denies pain. Addendum: 03/14/17 at 0437 by VICKY REICH RN 0200: spo2 87% RA, o2 applied at 2lpm via NC. congested, moist breath sounds. repositioned, HOB up. sats improved 92%. plan to d/c home today w/ spouse.
[2017-03-14] MEDS: Bumetanide 0.25 mg/mL 4 mL Inj IV SCH ×2 (06:20→20:30)
--- NOTE | 2017-03-14 06:28 | ABG ---
DateTimeAnalyzed 06:25:00 -_ pH ____7.184 - 7.350 7.450 pCO2 ___49.9__ -mmHg 35.0 45.0 pO2 ___58.9__ -mmHg 69.0 116 HCO3- ___18.1__ -mmol/L 22.0 26.0 ABE ___-9.7__ -mmol/L -2.0 2.0 tHb ___10.8__ -g/dL O2Hb ___82.4__ -% COHb ____1.4__ -% MetHb ____1.0__ -% sO2 ___84.4__ -% 25.0 FIO2 ___21.0__ -% Drawn By MD - Date/Time Notified____ 06:28:00 -_ Liter_Flow ___15.0__ -L/min Oxygen Device 1 NON RE-ANTOINE - Notified By MD - Notified Whom RN K.LOCKHART - B 757 -mmHg tO2 ___12.6__ -Vol% Fan test N/A -
--- NOTE | 2017-03-14 06:47 | NUR ---
0600: patient restless, removing clothing, o2. spo2 on RA 74%, b/p low. (see vs) difficult to rouse w/ verbal stimuli, awakened slowly w/ sternal rub. gurgly, sob, shallow breathing. o2 applied, spo2 ranging 80's. non-rebreather at 15lpm applied. abg's obtained by RT. pagefederico, order to give bumex 16mg. CXR w/ infiltrates. 06: transfer to CCU. present. report to day shift. Addendum: 03/14/17 at 0719 by CARINA COOL RN I agree with the above note. also ordered a stat chest X-ray and to transfer patient to second floor for BiPap or high-flow oxygen.
[2017-03-14] MEDS: Pantoprazole 20 mg ER24 Tablet PO SCH (07:30)
--- NOTE | 2017-03-14 08:52 | DRSVH ---
PROCEDURE: X-RAY CHEST ONE VIEW, PORTABLE ([id number]) INDICATIONS: dyspnea TECHNIQUE: One view of the chest was acquired. COMPARISON: [facility], CR, XR CHEST 1VW (PORTABLE), 03/12/2017, 4:40. [facility], CR, XR CHEST 1VW (PORTABLE), 03/09/2017, 8:44. FINDINGS: Surgical changes and devices: Pacemaking device and dual chamber leads normal. Lungs and pleura: No pleural effusions or pneumothorax. Lungs are abnormal with bilateral pneumonia over the mid and lower lungs, near severe, without visualized pneumothorax or definite pleural effus ion. Mediastinum: Mediastinal contours appear normal. Heart size is moderately enlarged, but difficult t o accurately assess in detail given the adjacent dense lung parenchyma. Bones and chest wall: No suspicious bony lesions. Overlying soft tissues appear unremarkable. IMPRESSION: Bilateral pneumonia pattern, which appears to have worsened from the comparison studies and 03/12/17. Dictated by: Ermias Major M.D. on 03/14/2017 at 8:49 Approved by: Ermias Major M.D. on 03/14/2017 at 8:50
[2017-03-14 10:22] LABS: Mean Corpuscular Hemoglobin 27.1 pg (27.0-35.0); Mean Corpuscular Volume 83.1 fL (81-100)
--- NOTE | 2017-03-14 11:27 | PCM.PALLBR ---
Palliative Care Recommendation 82-year-old patient admitted with supratherapeutic INR and associated probable GI bleed with acute anemia, acute on chronic renal failure and altered mental status. Palliative medicine consulted to assist patient and family and determination of goals of care. Progressive respiratory failure through the evening, now on BiPAP and obtunded. Deteriorating renal function, progressive acidosis, etc. Nearing end-of-life. Summary of palliative recommendations -Symptom management (Pain/other)- patient appears comfortable at this time. Continue prn medications as ordered. His is unwilling to proceed with purely comfort measures at this time. His daughter feels that primary goal should be comfort. Patient's claims that he has a severe narcotic allergy which I cannot confirm- because of this will continue to avoid narcotics, but will set up orders for prn lorazepam and/or haloperidol as needed for anxiety or agitation. If necessary for his comfort, could eventually also add IV morphine, 2-4 mg Q15 min prn dyspnea, distress, pain or other symptoms. -DPOA/Advanced Directives/POLST- changed today to DO NOT RESUSCITATE/DO NOT INTUBATE. Given his overall deterioration, and the intractable nature of his cardiorenal disease, terminal interventions such as CPR/defibrillation would be inappropriate. His , with great reluctance, accepts this; his daughter would prefer transition to purely comfort care but defers to the patient's . -Family/emotional support- palliative medicine will continue to follow and support. I will continue to update daughter Stuart ([phone]) by phone through the coming days -Spiritual support- inside sales coordinator was visiting and I also consulted the hospital beer runner. Additional Medical Diagnoses with primary management by Hospitalist team include : Acute blood loss anemia and GI bleed most likely secondary to supratherapeutic INR, present on admission. The bleeding appears to have stopped. Acute on chronic kidney injury, present on admission. Progressive. Not a dialysis candidate. Multiple electrolyte and acid/base abnormalities associated with above, progressive Chronic systolic congestive heart failure, progressive, with associated worsened pulmonary edema and respiratory failure Hypotension Possible TIA Hematoma around pacemaker, chronic, stable Elevated troponins of uncertain significance, present on admission, active Recent history of left lower extremity DVT (01/09/17), currently stable Type II diabetes Problems: End of Life Preferences Now DO NOT RESUSCITATE/DO NOT INTUBATE; likely will progress to comfort care with the next 1-2 days Disposition Will likely here in hospital in the next 1-2 days Resuscitation Status Resuscitation Status: DNR/DNI:Do Not Resuscitate/Intubate POLST Updates/Changes Previous POLST?: No POLST Discussed with: Health Care Agent (DPOAHC) POLST Review Outcome: New Form Completed (but remains unsigned) . Advanced Care Planning Address: Code status change Pain: None Symptom management: Drowsiness/sleepiness, Dyspnea, Delirium Total time 115 minutes; >50% face to face with patient and family, spread across multiple visits and phone calls throughout the day, providing counselling regarding plans and recommendations, and in care coordination with his medical teams. Of the above total time, 80 minutes counseling for advanced care planning with the patient's family members Palliative Brief Note Date of Service Mar 14, 2017 . Returned to reevaluate patient. Prior to visiting, reviewed updated records in the EMR in detail and spoke with his bedside nurse as well as his medical team. Received signout from yesterday's palliative provider as well. Reviewed his nephrology notes in particular in detail. Patient deteriorated through the night and required transfer to CCU for progressive hypoxemia and obtundation. When I arrived, he is in bed, head of bed elevated, wearing BiPAP mask. Extremely lethargic but occasionally will reach up and try to dislodge the mask. No apparent pain or other discomfort. His is at bedside. I spoke with her at length, very carefully, explaining his deterioration, particularly in light of his multiple ongoing medical problems and the decision over the last several days that he is not a candidate for dialysis. Reviewed his current laboratory results with her in detail, his intake/output, his chest x-ray findings, etc. On exam, he is an elderly gentleman lying in bed, unresponsive. BiPAP in place. Skin is warm and dry. Head and neck exam without acute focal findings. Lungs with diminished breath sounds diffusely and absent breath sounds left base. Chest x-ray was significantly worse bilateral infiltrates. Heart sounds irregular. Abdomen soft without tenderness. Diffuse edema and puffiness of the extremities. Intake/output up greater than 5 L over the last several days. Overall weight is up greater than 10 kg since admission. Patient's spouse remains very reluctant to accept the reality of the situation. She did ask that I call her daughter Stuart ([phone]) and I did that, reviewing the clinical situation in detail with Stuart (who tells me that she is in [employer]), answering questions she had. She feels very strongly that the patient is at end-of-life and should be kept comfortable; she notes that her mother has consistently been unable to accept his deterioration and nearing end- of-life. Stuart is medically incapacitated at this time and cannot visit urgently. We agreed to stay in touch closely by phone over the next several days. I returned to the room and reviewed my conversation with Stuart with the patient's . We talked at length and I tried to comfort her. She remained very tearful and distraught, saying repeatedly "how can I live without him?" We discussed comfort measures but she is unready to discontinue BiPAP and other supportive treatments, though she realizes that other aggressive end-of-life interventions are inappropriate and would not be helpful. Returned later and spoke with their inside sales coordinator as well. Returned to reevaluate patient in the early afternoon. Spoke with his bedside nurse. I then contacted Stuart by phone and reviewed patient's current status with her again in detail. She had spoken by phone with the patient's who continues to be distraught and ultimately hung up on her. Stuart will call back later this evening and with the nurses assistance will try to speak with her father. She continues to support transition to purely comfort care, which the patient's spouse is not yet ready for. Alexis Rivas MD Mar 14, 2017 11:27 supportive treatments, though she realizes that other aggressive end-of-life interventions are inappropriate and would not be helpful. Returned later and spoke with their inside sales coordinator as well. Alexis Rivas MD Mar 14, 2017 11:27
--- NOTE | 2017-03-14 13:00 | NUR ---
spiritual care: follow up/pall care physician referral updated me on pt's change of status and her preparations for his . Tearful, overwhelmed. Velásquez in room. last night's events recounted, discussed. Pt pulling at breathing paraphenalia.
[2017-03-14] MEDS ORDERED: Haloperidol 5 mg/mL Inj IVPUSH PRN (13:15)
--- NOTE | 2017-03-14 13:21 | NUR ---
Arrived to Unit Pt arrived to [facility] room 2021 prior to shift change this am, report done with GARTH HOOD RN. Pt on BiPAP with FiO2 @ 100% maintaining Pt's SPO2 sats in the mid to upper 90s. Pt appears to be comfortable outside of intermittently grabbing at mask, RR in the low 20s, HR 60. Pt's BP 86/49, carvedilol dose withheld r/t being on BiPAP and low BP, MD made aware. Palliative care consult placed and palliative team spoke with Pt's , DNR/DNI order placed. Addendum: 03/14/17 at 1843 by SANJANA POTTS RN Pt's BP 50/37 this afternoon, palliative MD and hospitalist team updated who came and spoke with Pt's . BP 58/46 when rechecked a little later in the afternoon.
[2017-03-14] MEDS ORDERED: fentaNYL-PF 50 mCg/mL 2 mL Inj IVPUSH PRN (16:30)
--- NOTE | 2017-03-14 16:56 | PCM.PNMED ---
Subjective Date of Service Mar 14, 2017 Subjective Patient has been transferred back to the PCU. Today he is on high-flow Bipap, lethargic, with worsening of his vital signs and kidney function. His Katty is still having much difficulty with accepting his significant decline in health, especially since he was alert and talking just yesterday. After discussion with Palliative Care she has agreed to change him to DNR/DNI status. Friends from [employer] are visiting with them for spiritual support. In the afternoon his blood pressure significantly dropped, and he was put on comfort care. He appears comfortable after administration of Ativan and Fentanyl. Exam Vital Signs Vital Sign - Last Date Time Temp Pulse Resp B/P Pulse Ox O2 Delivery O2 Flow Rate FiO2 03/14/17 15:48 36.7 60 21 50/37 94 BiPAP 03/14/17 12:31 100 03/14/17 06:28 15.00 Intake and Output 03/13/17 03/13/17 03/14/17 Cumulative From/Thru 15:00 23:00 07:00 02/24/17 16:17 - 03/14/17 06:05 Intake Total 80 ml 0 ml 96959 ml Output Total 0 ml 7510 ml Balance 80 ml 0 ml 19273 ml Intake Oral 80 ml 0 ml 56818 ml IV Total 60815 ml Output Urine Total 0 ml 7510 ml # Voids 2 40 # Bowel Movements 1 16 Exam Gen: lethargic, minimally responsive. CV: distant heart sounds. Resp: bipap mask. Scattered rales at lung bases. Extremities: 3+ pitting edema lower extremities. Lab and Diagnostics Result Diagram: 03/14/17 1005 03/14/17 1005 Microbiology Blood cultures are negative. MRSA screen is negative. Urine for eosinophils is negative. X-Rays, CTs and MRIs X-RAY CHEST IMPRESSION: Small bibasilar pleural effusions, with increased bibasilar compressive atelectasis versus evolving bronchopneumonia. Dictated and approved by: Barron Sheridan M.D. on 02/24/2017 at 17:50 CT BRAIN WITHOUT CONTRAST IMPRESSION: 1. No acute intracranial abnormalities. 2. Nonacute bilateral caudate nuclei lacunar infarcts as before. Dictated and approved by: Barron Sheridan M.D. on 02/24/2017 at 17:46 US BILATERAL DUPLEX DOPPLER IMAGING OF THE CAROTIDS IMPRESSION: 1. Less than 50% bilateral internal carotid artery stenosis. 2. Antegrade vertebral artery flow bilaterally. Dictated and approved by: Rosette Espinoza M.D. on 02/25/2017 at 10:38 PROCEDURE: X-RAY CHEST ONE VIEW, PORTABLE ([id number]) INDICATIONS: SHORTNESS OF BREATH TECHNIQUE: One view of the chest was acquired. COMPARISON: [facility], CR, XR CHEST 1VW (PORTABLE), 02/24/2017, 16: 33. FINDINGS: Surgical changes and devices: Stable position of left chest cardiac pacemaker. Lungs and pleura: Slight interval decrease in the mid/basilar airspace opacities and persistent small effusions present. Mediastinum: Mediastinal contours appear normal. Heart size is normal. Bones and chest wall: No suspicious bony lesions. Overlying soft tissues appear unremarkable. IMPRESSION: Bibasilar pneumonia and small pleural effusion slightly decreased from prior exam. Dictated by: Oscar Holder RRA Interpreted: Devora Ordoñez MD on 03/09/2017 at 11: 17 Transcribed by: LEONOR on 03/09/2017 at 11:18 Approved by: Devora rOdoñez M.D. on 03/09/2017 at 15:50 Cardiac Echo Impressions Echocardiogram Report The left ventricle is mildly dilated. The ejection fraction is estimated to be 25-30%. There is severe hypokinesis of the mid and distal septum, and akinesis of the septum and posterior wall. The anterior wall is hypokinetic and in apical inferior wall is akinetic. The right ventricle is mildly dilated. There is severe biatrial enlargement. There is moderate to severe mitral regurgitation. The aortic valve is mildly calcified. There is moderate tricuspid regurgitation. The right ventricular systolic pressure is estimated at 75 mmHg assuming a right atrial pressure of 15 mm Hg. Electronically signed by: Luis Cornell on Reading Physician:02/27/2017 03:08 PM Additional Diagnostics X-RAY BARIUM SWALLOW ESOPHAGUS IMPRESSION: Very limited exam showing no evidence of laryngeal penetration or aspiration with thin through thick barium products. Deglutition and initial peristalsis appeared adequate. There is no high-grade obstruction in the mid or distal esophagus. Dictated and approved by Ed Catalan M.D. on 02/27/2017 at 16:06 X-RAY BARIUM SWALLOW ESOPHAGUS IMPRESSION: Limited study quality due to the dilatation of the patient, but the study does allow assessment for presence of mass lesion or esophageal stricture. There is esophageal dysmotility, but no sign of mass or stricture. Dictated and approved by: Ermias Major M.D. on 03/02/2017 at 13:25 US VEINOUS LEG DUPLEX UNILATERAL, LEFT IMPRESSION: No deep venous thrombosis identified within the left lower extremity. Dictated by: Oscar Holder [facility] Interpreted: Devora Ordoñez MD on 03/06/2017 at 16: 58 Approved by: Devora Ordoñez M.D. 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 1. Progressive respiratory failure requiring BiPAP. Active. - DNR/DNI status - Continue to provide spiritual support to his as patient is near end of life - Ativan, fentanyl, haloperidol for comfort 2. Acute on chronic kidney injury, present on admission. Active - Most likely due to prerenal azotemia - Creatinine and BUN have stabilized on gentle IV hydration - Nephrology consulted, we appreciated their input. Per nephrology recent worsening of renal function likely due to dehydration. Torsemide will be held again today and IV fluids are continued. - Avoid nephrotoxic agents the patient's is refusing to allow him to have Protonix as she believes that this might be nephrotoxic. - Espino catheter removed. Assistance at all times when ambulating. - The torsemide is now on hold - One time furosemide IV 100 was given by nephrology on 03/04/2017. 3. Chronic systolic congestive heart failure, present on admission, active - Ejection fraction of 35-40% from echo done on 01/10/2017 with severe pulmonary hypertension - Recent echo preformed on 02/26/2017 revealed worsening cardiac function with ejection fraction of 25-30%, severe hypokinesis of the mid and distal septum, and akinesis of the septum and posterior wall, severe biatrial enlargement, moderate to severe mitral regurgitation, mildly calcified aortic valve and moderate tricuspid regurgitation - Due to the fact that the patient's is against any additional procedures, cardiology has not been consulted - Code status has been changed to DO NOT RESUSCITATE and DO NOT INTUBATE today. -Ativan and fentanyl for comfort 4. Hypotension, present on admission, active -Blood pressure is within normal limits today -Continue to hold all diuresis and all blood pressure medications 5. Possible TIA, present on admission, improving -CT scan negative, patient's declines MRI even though patient has MRI compatible pacemaker -Ultrasound of the carotids: Less than 50% bilateral internal carotid artery stenosis. Antegrade vertebral artery flow bilaterally -Continue to monitor 6. Hematoma around pacemaker, chronic, stable -Cardiology has examined and states that this is actually improved from the patient's baseline no further treatment needed just continue to monitor - There is no evidence for cellulitis or infection. 7. Elevated troponins of uncertain significance, present on admission, active -Most likely stress-induced -Troponins 0.104-->0.100-->0.115 8. Recent history of left lower extremity DVT (01/09/17), currently stable -We held all anticoagulation on admissionpatient had an INR that was supratherapeutic and he had evidence of GI bleeding. -Repeat venous Doppler ultrasound was negative for DVT in the left lower extremity where it was present for. See "DVT prophylaxis" below. 9. Type II diabetes Controlled with diet. Continue dysphagia diabetic diet. 10. Acute blood loss anemia and GI bleed most likely secondary to supratherapeutic INR, present on admission. The bleeding appears to have stopped. - Hemoglobin and hematocrit continuing to improve and/or remain stable. No further red blood cell transfusions have been needed. -History of positive stool occult blood one month prior after initiating warfarin therapy for left lower extremity DVT - Gastroenterology has been consulted for likely upper intestinal bleed given history of chronic full dose aspirin, positive stool cold blood at last admission, increased BUN, report of melena, and significant lower hemoglobin than at baseline -The patient's does not wish for any "invasive" procedures such as an upper endoscopy or a colonoscopy, so a barium swallow study was done by Dr. Soares to evaluate dysphagia. The results were limited due to the patient's decreased level of consciousness at the time. Dr. Soares's progress note () suggested a possible repeat barium swallow to work up a possible obstruction and/or neoplasm. Barium swallow performed on 2016 and showed evidence for esophageal dysmotility, but no sign of mass or stricture. -Home anticoagulation meds included warfarin and clopidogrel. Dr. Tucker and Dr. Thompson discussed with the patient's Katty the risks and benefits of continuing anticoagulation in light of his deep venous thrombosis and transient ischemic attack history, contrasted with his increasing risk of falls. His understands, and wishes for him to continue on only clopidogrel and aspirin at home upon discharge. Venous Doppler performed on 03/06/2017 shows. "No deep venous thrombosis identified within the left lower extremity". - Continue holding all anticoagulation for now, since source of bleeding unknown. Pain Evaluation: Adequate Pain Control GI Prophylaxis: Proton Pump Inhibitor VTE Prophylaxis: Other (Holding warfarin due to suspected gastrointestinal bleeding) VTE Mechanical Devices: Intermittant Pneumatic CD Resuscitation Status: DNR/DNI:Do Not Resuscitate/Intubate Attending Statement The patient was seen and examined together with Dr. Thompson on 03/14/2017 and I agree with the history, exam and plan as outlined in the note above. . Kathleen Thompson DO Mar 14, 2017 16:56 Milad Tucker MD Mar 16, 2017 08:00 continuing anticoagulation in light of his deep venous thrombosis and transient ischemic attack history, contrasted with his increasing risk of falls. His understands, and wishes for him to continue on only clopidogrel and aspirin at home upon discharge. Venous Doppler performed on 03/06/2017 shows. "No deep venous thrombosis identified within the left lower extremity". Disposition: patient seems medically stable, likely home tomorrow. GI Prophylaxis: Proton Pump Inhibitor VTE Prophylaxis: Other (Holding warfarin due to suspected gastrointestinal bleeding) VTE Mechanical Devices: Intermittant Pneumatic CD Resuscitation Status: DNR/DNI:Do Not Resuscitate/Intubate Kathleen Thompson DO Mar 14, 2017 16:56
--- NOTE | 2017-03-14 17:12 | NUR ---
spiritual care: follow up lengthy visit as pt's reflected on events, her feelings exp of overwhelm. Tearful, grieving. Friend in room, supportive. Addendum: 03/14/17 at 1846 by ALEX LEAVITT CM brief follow up visit. 2 friends in room, supportive. brenden
[2017-03-14] MEDS: 0.9% Sodium Chloride 1,000 ML IV SCH (20:06)
[2017-03-14] MEDS: Furosemide 10 mg/mL 4 mL Inj IVPUSH SCH (20:06)
[2017-03-15] VITALS (9 sets, daily range): BP systolic 48–88; BP diastolic 34–70; PULSE 60–63; RESP 17–32; O2SAT 91–98
--- NOTE | 2017-03-15 05:27 | NUR ---
Comfort Pt appears comfortable. No S/Sx of pain noted. He is somnolent. Responses to deep stimuli. Pt is hypotensive. Meds held. Remains of BiPAP support. Spouse at the bedside providing support and comfort. No overt complications noted. Addendum: 03/15/17 at 0650 by JULIAN GUZMAN RN Pt is waking up and attempting to pull out BiPAP mask. Medicated with Ativan. Pt is calm. Not attempting to pull out mask at this time.
[2017-03-15] MEDS ORDERED: Atropine 1% 5 mL Ophthalmic Solution PO PRN (09:25)
[2017-03-15] MEDS ORDERED: Haloperidol 5 mg/mL Inj IVPUSH PRN (09:25)
[2017-03-15] MEDS ORDERED: Artificial Tears 15 mL Ophthalmic Solution AFFECT_EYE PRN (09:25)
[2017-03-15] MEDS ORDERED: Glycopyrrolate 0.2 MG/ML 1mL Inj IVPUSH PRN (09:35)
--- NOTE | 2017-03-15 10:01 | NUR ---
Comfort care Pt and seen by palliative care. Pt transitioned to comfort care per orders. Pt resting and appearing comfortable in bed. Will continue to monitor. Addendum: 03/15/17 at 1121 by EVA DUPONT RN Bipap removed at 10:50 per request. placed on oxymask at 6L. Pt sats at 11:20 80%. Will continue to monitor. Addendum: 03/15/17 at 1252 by SANJANA POTTS RN Per , bipap placed back on pt at 1215. Sats prior down to 77%. Up to 93% on bipap. Addendum: 03/15/17 at 1533 by EVA DUPONT RN has declined removal of telemetry monitoring
--- NOTE | 2017-03-15 13:11 | NUR ---
spiritual care: following conversational/caring visit. requested change of o2 mask. pt nonresponsive. reflecting on personal life, fears, changes, tearful. Friend Clarita in room.
--- NOTE | 2017-03-15 14:13 | PCM.PNMED ---
Subjective Date of Service Mar 15, 2017 Subjective Patient is comfortable through the night. Katty, his has seen by palliative care once again. Patient transitioned to comfort care per orders. Patient resting and appearing comfortable in bed. Bipap removed earlier this morning per request. Placed on oxymask at 6L. Patient sats at 80% shortly after and requested Bipap placed back. Up to 93% on bipap. Exam Vital Signs Vital Sign - Last Date Time Temp Pulse Resp B/P Pulse Ox O2 Delivery O2 Flow Rate FiO2 03/15/17 09:11 60 17 48/38 96 BiPAP 100 03/15/17 04:57 36.3 03/14/17 06:28 15.00 Intake and Output 03/14/17 03/14/17 03/15/17 Cumulative From/Thru 15:00 23:00 07:00 02/24/17 16:17 - 03/15/17 05:08 Intake Total 0 ml 0 ml 17468 ml Output Total 7510 ml Balance 0 ml 0 ml 27262 ml Intake Oral 0 ml 0 ml 78388 ml IV Total 67572 ml Output Urine Total 7510 ml # Voids 3 43 # Bowel Movements 1 17 Exam Gen: lethargic, minimally responsive. CV: distant heart sounds. Resp: bipap mask. Scattered rales at lung bases. Extremities: 3+ pitting edema lower extremities. Lab and Diagnostics Result Diagram: 03/14/17 1005 03/14/17 1005 Microbiology Blood cultures are negative. MRSA screen is negative. Urine for eosinophils is negative. X-Rays, CTs and MRIs X-RAY CHEST IMPRESSION: Small bibasilar pleural effusions, with increased bibasilar compressive atelectasis versus evolving bronchopneumonia. Dictated and approved by: Barron Sheridan M.D. on 02/24/2017 at 17:50 CT BRAIN WITHOUT CONTRAST IMPRESSION: 1. No acute intracranial abnormalities. 2. Nonacute bilateral caudate nuclei lacunar infarcts as before. Dictated and approved by: Barron Sheridan M.D. on 02/24/2017 at 17:46 US BILATERAL DUPLEX DOPPLER IMAGING OF THE CAROTIDS IMPRESSION: 1. Less than 50% bilateral internal carotid artery stenosis. 2. Antegrade vertebral artery flow bilaterally. Dictated and approved by: Rosette Espinoza M.D. on 02/25/2017 at 10:38 PROCEDURE: X-RAY CHEST ONE VIEW, PORTABLE ([id number]) INDICATIONS: SHORTNESS OF BREATH TECHNIQUE: One view of the chest was acquired. COMPARISON: [facility], CR, XR CHEST 1VW (PORTABLE), 02/24/2017, 16: 33. FINDINGS: Surgical changes and devices: Stable position of left chest cardiac pacemaker. Lungs and pleura: Slight interval decrease in the mid/basilar airspace opacities and persistent small effusions present. Mediastinum: Mediastinal contours appear normal. Heart size is normal. Bones and chest wall: No suspicious bony lesions. Overlying soft tissues appear unremarkable. IMPRESSION: Bibasilar pneumonia and small pleural effusion slightly decreased from prior exam. Dictated by: Oscar Holder RRA Interpreted: Devora Ordoñez MD on 03/09/2017 at 11: 17 Transcribed by: LEONOR on 03/09/2017 at 11:18 Approved by: Devora Ordoñez M.D. on 03/09/2017 at 15:50 Cardiac Echo Impressions Echocardiogram Report The left ventricle is mildly dilated. The ejection fraction is estimated to be 25-30%. There is severe hypokinesis of the mid and distal septum, and akinesis of the septum and posterior wall. The anterior wall is hypokinetic and in apical inferior wall is akinetic. The right ventricle is mildly dilated. There is severe biatrial enlargement. There is moderate to severe mitral regurgitation. The aortic valve is mildly calcified. There is moderate tricuspid regurgitation. The right ventricular systolic pressure is estimated at 75 mmHg assuming a right atrial pressure of 15 mm Hg. Electronically signed by: Luis Cornell on Reading Physician:02/27/2017 03:08 PM Additional Diagnostics X-RAY BARIUM SWALLOW ESOPHAGUS IMPRESSION: Very limited exam showing no evidence of laryngeal penetration or aspiration with thin through thick barium products. Deglutition and initial peristalsis appeared adequate. There is no high-grade obstruction in the mid or distal esophagus. Dictated and approved by Ed Catalan M.D. on 02/27/2017 at 16:06 X-RAY BARIUM SWALLOW ESOPHAGUS IMPRESSION: Limited study quality due to the dilatation of the patient, but the study does allow assessment for presence of mass lesion or esophageal stricture. There is esophageal dysmotility, but no sign of mass or stricture. Dictated and approved by: Ermias Major M.D. on 03/02/2017 at 13:25 US VEINOUS LEG DUPLEX UNILATERAL, LEFT IMPRESSION: No deep venous thrombosis identified within the left lower extremity. Dictated by: Oscar GOMEZ Interpreted: Devora Ordoñez MD on 03/06/2017 at 16: 58 Approved by: Devora Ordoñez M.D. 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 1. Progressive respiratory failure requiring BiPAP. Active. - DNR/DNI status - Continue to provide spiritual support to his as patient is near end of life - Ativan, fentanyl, haloperidol for comfort - Patient is on comfort care per orders 2. Acute on chronic kidney injury, present on admission. Active - Most likely due to prerenal azotemia - Creatinine and BUN have stabilized on gentle IV hydration - Nephrology consulted, we appreciated their input. Per nephrology recent worsening of renal function likely due to dehydration. Torsemide will be held again today and IV fluids are continued. - Avoid nephrotoxic agents the patient's is refusing to allow him to have Protonix as she believes that this might be nephrotoxic. - Espino catheter removed. Assistance at all times when ambulating. - The torsemide is now on hold - One time furosemide IV 100 was given by nephrology on 03/04/2017. 3. Chronic systolic congestive heart failure, present on admission, active - Ejection fraction of 35-40% from echo done on 01/10/2017 with severe pulmonary hypertension - Recent echo preformed on 02/26/2017 revealed worsening cardiac function with ejection fraction of 25-30%, severe hypokinesis of the mid and distal septum, and akinesis of the septum and posterior wall, severe biatrial enlargement, moderate to severe mitral regurgitation, mildly calcified aortic valve and moderate tricuspid regurgitation - Due to the fact that the patient's is against any additional procedures, cardiology has not been consulted - Code status has been changed to DO NOT RESUSCITATE and DO NOT INTUBATE today. -Ativan and fentanyl for comfort 4. Hypotension, present on admission, active -Blood pressure is within normal limits today -Continue to hold all diuresis and all blood pressure medications 5. Possible TIA, present on admission, improving -CT scan negative, patient's declines MRI even though patient has MRI compatible pacemaker -Ultrasound of the carotids: Less than 50% bilateral internal carotid artery stenosis. Antegrade vertebral artery flow bilaterally -Continue to monitor 6. Hematoma around pacemaker, chronic, stable -Cardiology has examined and states that this is actually improved from the patient's baseline no further treatment needed just continue to monitor - There is no evidence for cellulitis or infection. 7. Elevated troponins of uncertain significance, present on admission, active -Most likely stress-induced -Troponins 0.104-->0.100-->0.115 8. Recent history of left lower extremity DVT (01/09/17), currently stable -We held all anticoagulation on admissionpatient had an INR that was supratherapeutic and he had evidence of GI bleeding. -Repeat venous Doppler ultrasound was negative for DVT in the left lower extremity where it was present for. See "DVT prophylaxis" below. 9. Type II diabetes Controlled with diet. Continue dysphagia diabetic diet. 10. Acute blood loss anemia and GI bleed most likely secondary to supratherapeutic INR, present on admission. The bleeding appears to have stopped. - Hemoglobin and hematocrit continuing to improve and/or remain stable. No further red blood cell transfusions have been needed. -History of positive stool occult blood one month prior after initiating warfarin therapy for left lower extremity DVT - Gastroenterology has been consulted for likely upper intestinal bleed given history of chronic full dose aspirin, positive stool cold blood at last admission, increased BUN, report of melena, and significant lower hemoglobin than at baseline -The patient's does not wish for any "invasive" procedures such as an upper endoscopy or a colonoscopy, so a barium swallow study was done by Dr. Soares to evaluate dysphagia. The results were limited due to the patient's decreased level of consciousness at the time. Dr. Soares's progress note () suggested a possible repeat barium swallow to work up a possible obstruction and/or neoplasm. Barium swallow performed on 2016 and showed evidence for esophageal dysmotility, but no sign of mass or stricture. -Home anticoagulation meds included warfarin and clopidogrel. Dr. Tucker and Dr. Thompson discussed with the patient's Katty the risks and benefits of continuing anticoagulation in light of his deep venous thrombosis and transient ischemic attack history, contrasted with his increasing risk of falls. His understands, and wishes for him to continue on only clopidogrel and aspirin at home upon discharge. Venous Doppler performed on 03/06/2017 shows. "No deep venous thrombosis identified within the left lower extremity". - Continue holding all anticoagulation for now, since source of bleeding unknown. Pain Evaluation: Adequate Pain Control VTE Prophylaxis: Other ( ) Resuscitation Status: DNR/DNI:Do Not Resuscitate/Intubate Attending Statement The patient was seen and examined together with Dr. Thompson on 03/15/2017 and I agree with the history, exam and plan as outlined in the note above. . Kathleen Thompson DO Mar 15, 2017 14:13 Milad Tucker MD Mar 16, 2017 08:01
--- NOTE | 2017-03-15 14:27 | PCM.PALLBR ---
Palliative Care Recommendation 82-year-old patient admitted with supratherapeutic INR and associated probable GI bleed with acute anemia, acute on chronic renal failure and altered mental status. Palliative medicine consulted to assist patient and family and determination of goals of care. Progressive respiratory failure through the evening of 03/13, now continues on BiPAP and obtunded. Deteriorating renal function, progressive acidosis, etc. Nearing end-of-life. Summary of palliative recommendations -Symptom management (Pain/other)- patient appears comfortable at this time. Continue prn medications as ordered. He is now on comfort measures, but BiPAP/ telemetry is continued at his 's insistence. I gently advised her that such treatment only is prolonging his dying process, but for her peace of mind she insists that BiPAP be continued for now. Nurses have verbal orders that they may decrease his oxygen supplementation as she wishes. Other routine comfort medications/measures now ordered. I anticipate that he will here in hospital within the next 24 hours. -DPOA/Advanced Directives/POLST- DO NOT RESUSCITATE/DO NOT INTUBATE/comfort care. Given his overall deterioration, and the intractable nature of his cardiorenal disease, terminal interventions such as CPR/defibrillation would be inappropriate. His , with great reluctance, accepts this. -Family/emotional support- palliative medicine will continue to follow and support. I will continue to update daughter Stuart ([phone]) by phone through the coming days -Spiritual support- cloth shader was visiting and I also consulted the hospital marketing researcher. Additional Medical Diagnoses with primary management by Hospitalist team include : Acute blood loss anemia and GI bleed most likely secondary to supratherapeutic INR, present on admission. The bleeding appears to have stopped. Acute on chronic kidney injury, present on admission. Progressive. Not a dialysis candidate. Multiple electrolyte and acid/base abnormalities associated with above, progressive Chronic systolic congestive heart failure, progressive, with associated worsened pulmonary edema and respiratory failure Hypotension Possible TIA Hematoma around pacemaker, chronic, stable Elevated troponins of uncertain significance, present on admission, active Recent history of left lower extremity DVT (01/09/17), currently stable Type II diabetes Problems: End of Life Preferences DO NOT RESUSCITATE/DO NOT INTUBATE/comfort Disposition Will likely here in hospital in the next 1-2 days Resuscitation Status Resuscitation Status: DNR/DNI:Do Not Resuscitate/Intubate POLST Updates/Changes Previous POLST?: No POLST Discussed with: Health Care Agent (DPOAHC) POLST Review Outcome: New Form Completed (but remains unsigned) . Advanced Care Planning Address: Comfort care Pain: None Symptom management: Dyspnea Total time 75 minutes, spread across multiple visits through the day; >50% face to face with patient and family, providing counselling regarding plans and recommendations, and in care coordination with his medical teams. Of the above total time, 60 minutes counseling for advanced care planning and providing support with the patient's family and friends Palliative Brief Note Date of Service Mar 15, 2017 . Returned to reevaluate patient. Prior to visiting, reviewed his updated records in the EMR in detail and spoke with his bedside nurse. I also called and spoke with his daughter twice today. Of course, spoke with his at bedside on multiple visits throughout the day. He remains obtunded. BPs have been low since late yesterday, in the 60-70s systolic range. Oxygenation remained stable on 100% FiO2 with BiPAP. His recognizes that the BiPAP mask may be distress seemed to him, but when it was removed and his O2 saturations fell she became frightened and insisted it be replaced. I talked with her gently up all the BiPAP merely prolonging his passing and not providing any true benefit to him, but she insists it remain in place for her peace of mind. His exam otherwise remained stable compared with yesterday. Alexis Rivas MD Mar 15, 2017 14:27
--- NOTE | 2017-03-15 17:56 | NUR ---
spiritual care: follow visit. /transport planning and grief addressed Katty talked of future plans and coping..friends and Velásquez in room, caring continues.
--- NOTE | 2017-03-15 19:02 | NUR ---
Pt at 1810, MD and palliative team notified.
--- NOTE | 2017-03-16 12:39 | PCM.DC.MEX ---
Discharge Summary Date of Service Mar 16, 2017 Dates of Hospitalization Date of Hospital Admission Feb 24, 2017 at 18:37 Date of Expiration: Mar 15, 2017 Time of Expiration: 18:10 Providers: Admitting Physician: Zaria Lara DO Primary Care Physician: Valencia Jamison DO Attending Physician: Zaria Lara DO Consultations Nephrology, Gastroenterology, Palliative care Procedures XRay, CTs & MRIs X-RAY CHEST IMPRESSION: Small bibasilar pleural effusions, with increased bibasilar compressive atelectasis versus evolving bronchopneumonia. Dictated and approved by: Barron Sheridan M.D. on 02/24/2017 at 17:50 CT BRAIN WITHOUT CONTRAST IMPRESSION: 1. No acute intracranial abnormalities. 2. Nonacute bilateral caudate nuclei lacunar infarcts as before. Dictated and approved by: Barron Sheridan M.D. on 02/24/2017 at 17:46 US BILATERAL DUPLEX DOPPLER IMAGING OF THE CAROTIDS IMPRESSION: 1. Less than 50% bilateral internal carotid artery stenosis. 2. Antegrade vertebral artery flow bilaterally. Dictated and approved by: Rosette Espinoza M.D. on 02/25/2017 at 10:38 X-RAY CHEST ONE VIEW IMPRESSION: Bibasilar pneumonia and small pleural effusion slightly decreased from prior exam. Dictated by: Oscar Holder [facility] Interpreted: Devora Ordoñez MD on 03/09/2017 at 11: 17 Approved by: Devora Ordoñez M.D. on 03/09/2017 at 15:50 Cardiac Echo Impression Echocardiogram Report The left ventricle is mildly dilated. The ejection fraction is estimated to be 25-30%. There is severe hypokinesis of the mid and distal septum, and akinesis of the septum and posterior wall. The anterior wall is hypokinetic and in apical inferior wall is akinetic. The right ventricle is mildly dilated. There is severe biatrial enlargement. There is moderate to severe mitral regurgitation. The aortic valve is mildly calcified. There is moderate tricuspid regurgitation. The right ventricular systolic pressure is estimated at 75 mmHg assuming a right atrial pressure of 15 mm Hg. Electronically signed by: Luis Cornell on Reading Physician:02/27/2017 03:08 PM Other Diagnostics X-RAY BARIUM SWALLOW ESOPHAGUS IMPRESSION: Very limited exam showing no evidence of laryngeal penetration or aspiration with thin through thick barium products. Deglutition and initial peristalsis appeared adequate. There is no high-grade obstruction in the mid or distal esophagus. Dictated and approved by Ed Catalan M.D. on 02/27/2017 at 16:06 X-RAY BARIUM SWALLOW ESOPHAGUS IMPRESSION: Limited study quality due to the dilatation of the patient, but the study does allow assessment for presence of mass lesion or esophageal stricture. There is esophageal dysmotility, but no sign of mass or stricture. Dictated and approved by: Ermias Major M.D. on 03/02/2017 at 13:25 US VEINOUS LEG DUPLEX UNILATERAL, LEFT IMPRESSION: No deep venous thrombosis identified within the left lower extremity. Dictated by: Oscar Holder [facility] Interpreted: Devora Ordoñez MD on 03/06/2017 at 16: 58 Approved by: Devora Ordoñez M.D. on 03/06/2017 at 22:47 Brief History Per Admitting Physician: Zaria Lara DO: Patient is an 82-year-old male who presents to the hospital with the complaint of lethargy and slurred speech, blood in the stool, increased bruising, and chest pain. The patient's who is with him stated that the patient over the last 4-5 days has had increasing weakness and decreased appetite and thirst. They have home health services and the nurse told the patient 3 days ago to start increasing the amount of water that he drinks. The patient's stated that he drank 3 bottles of Pedialyte, two 16 ounce bottles of water, 2 cups of coffee and has only urinated once today. The patient normally is able to walk around independently and as he started to have increasing weakness and slurred speech and has been unable to get up and walk the patient's decided that he needed to come to the emergency room. The patient's states that at baseline the patient is able to walk on his own and does not have slurred speech nor does he have any signs of dementia. The patient's states that the patient did have blood in the stool today. She states that this is most likely secondary to the fact that the patient has been drinking multiple cups of coffee as this has triggered bleeding from his stomach ulcers in the past. Patient has been recently hospitalized secondary to influenza and bradycardia. The patient recently had a pacemaker placed on 01/17/2017 and currently has a hematoma in the area of the pacemaker. This has been followed and worked up and the patient's states that the hematoma has decreased in size. The patient has been taking warfarin for anticoagulation secondary to a DVT which was diagnosed on 01/09/2017. The patient recently was placed on antibiotics once the hematoma was discovered for prophylaxis against infection. The patient 's states that she has been following up with the INR clinic and has been changing the Coumadin dosages as prescribed by the doctor. 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 Patient continued to deteriorate due to failing cardiac and renal function. Palliative care was consulted and patient status was changed to DNR/DNI. Patient at 1810 on 03/15/2017 on hospital day 20. 1. Progressive respiratory failure requiring BiPAP. Active. - DNR/DNI status - Continued to provide spiritual support to his as patient is near end of life - Ativan, fentanyl, haloperidol for comfort. Patient is on comfort care per orders 2. Acute on chronic kidney injury, present on admission. Active - Most likely due to prerenal azotemia - Creatinine and BUN have stabilized on gentle IV hydration - Nephrology consulted, IV fluids continued, nephrotoxic agents avoided, diuresis. 3. Chronic systolic congestive heart failure, present on admission. Active - Ejection fraction of 35-40% from echo done on 01/10/2017 with severe pulmonary hypertension - Recent echo preformed on 02/26/2017 revealed worsening cardiac function with ejection fraction of 25-30%, severe hypokinesis of the mid and distal septum, and akinesis of the septum and posterior wall, severe biatrial enlargement, moderate to severe mitral regurgitation, mildly calcified aortic valve and moderate tricuspid regurgitation - Due to the fact that the patient's is against any additional procedures, cardiology has not been consulted - Code status has been changed to DO NOT RESUSCITATE and DO NOT INTUBATE today. - Continued ativan and fentanyl for comfort 4. Hypotension, present on admission. Active 5. Possible TIA, present on admission. Improved -CT scan negative, patient's declined MRI even though patient has MRI compatible pacemaker -Ultrasound of the carotids: Less than 50% bilateral internal carotid artery stenosis. Antegrade vertebral artery flow bilaterally 6. Hematoma around pacemaker, chronic. Stable -Cardiology had examined and stated that this was improved from the patient's baseline; no further treatment needed 7. Elevated troponins of uncertain significance, present on admission. Stable -Most likely stress-induced 8. Recent history of left lower extremity DVT (01/09/17). Stable -We held all anticoagulation on admissionpatient had an INR that was supratherapeutic and he had evidence of GI bleeding. -Repeat venous Doppler ultrasound was negative for DVT in the left lower extremity where it was present for. 9. Type II diabetes. Stable 10. Acute blood loss anemia and GI bleed most likely secondary to supratherapeutic INR, present on admission. The bleeding appears to have stopped. - Hemoglobin and hematocrit continued to remain stable. No further red blood cell transfusions have been needed. -History of positive stool occult blood one month prior after initiating warfarin therapy for left lower extremity DVT - Gastroenterology has been consulted for likely upper intestinal bleed given history of chronic full dose aspirin, positive stool cold blood at last admission, increased BUN, report of melena, and significant lower hemoglobin than at baseline -The patient's did not wish for any "invasive" procedures such as an upper endoscopy or a colonoscopy, so a barium swallow study was done by Dr. Soares to evaluate dysphagia. The results were limited due to the patient's decreased level of consciousness at the time. Dr. Soares's progress note (02/27/17) suggested a possible repeat barium swallow to work up a possible obstruction and /or neoplasm. Barium swallow performed on 2016 and showed evidence for esophageal dysmotility, but no sign of mass or stricture. -Home anticoagulation meds included warfarin and clopidogrel. Dr. Tucker and Dr. Thompson discussed with the patient's Katty the risks and benefits of continuing anticoagulation in light of his deep venous thrombosis and transient ischemic attack history, contrasted with his increasing risk of falls. His understands, and wishes for him to continue on only clopidogrel and aspirin at home upon discharge. Venous Doppler performed on 03/06/2017 shows. "No deep venous thrombosis identified within the left lower extremity". - Continued holding all anticoagulation Exam Test 02/24/17 16:50 02/24/17 17:14 02/25/17 04:35 02/26/17 04:40 Pro-B-Type Natriuretic Peptide 3949pg/mL (0-486) Urine Color Yellow (YELLOW) Urine Appearance Clear (CLEAR,HAZY) Urine pH 5.0 (5.0-8.0) Urine Specific [place] 1.010 (1.003-1.035) Urine Protein Negativemg/dL (NEG,TRACE) Urine Glucose (UA) Negativemg/dL (NEGATIVE) Urine Ketones Negativemg/dL (NEGATIVE) Urine Occult Blood Negative (NEGATIVE) Urine Nitrite Negative (NEGATIVE) Urine Bilirubin Negative (NEGATIVE) Urine Urobilinogen Normalmg/dL (NORMAL) Urine Leukocyte Esterase Negative (NEGATIVE) Urine RBC 0-2/hpf (0-2) Urine WBC 0-5/hpf (0-5) Urine Epithelial Cells Occasional/hpf (NONE-MOD) Urine Crystals Amorphous urates (NONE Urine Bacteria None/hpf (NONE-FEW) Urine Hyaline Casts None/lpf (NONE) Urine Granular Casts None seen (NONE SEEN) Urine Waxy Casts None seen (NONE SEEN) Urine Red Blood Cell Casts None seen (NONE SEEN) Urine White Blood Cell Casts None seen (NONE SEEN) Urine Mucus None seen (None Seen) Urine Trichomonas None seen (NONE SEEN) Urine Yeast None (NONE SEEN) Urinalysis Comment None Urine Culture Reflexed Not indicated Troponin T 0.115ug/L (0.0-0.011) Lactic Acid Level 1.4mmol/L (0.4-2.0) Procalcitonin 0.12ng/mL (0.00-0.08) Test 02/26/17 11:50 4/3/17 23:50 02/27/17 08:20 03/12/17 08:45 Urine Total Protein 20.6mg/dL (Not Estab.) Urine Albumin 64.2% (.) Urine [id number]-[id number] 2.5% (.) Urine Xjwtz-0-[id number] 4.8% (.) Urine Beta Globulin 11.8% (.) Urine Gamma Globulin 16.8% (.) Urine Protein Electrophoresis Note Comment (.) Urine Monoclonal Protein % Not observed% (Not Observed) Urine Random Creatinine 41mg/dL (22-328) Urine Random Sodium 27mEq/L Prothrombin Time 13.4sec (8.1-12.5) Prothromb Time International Ratio 1.25ratio Metamyelocytes % 1% (0-0) Myelocytes % 1% (0-0) Test 03/13/17 05:28 03/14/17 10:05 Corrected White Blood Count 8.6th/mm3 (3.8-10.1) Neutrophils (%) (Auto) 92% (40-74) Lymphocytes (%) (Auto) 4% (14-46) Monocytes (%) (Auto) 2% (4-12) Eosinophils (%) (Auto) 0% (0-5) Basophils (%) (Auto) 0% (0-3) Band Neutrophils % 2% (1-5) Nucleated Red Blood Cells 11/100 WBC (0-24) Hematology Comments Rbc Phosphorus Level 6.3mg/dL (2.5-4.9) Magnesium Level 2.4mg/dL (1.6-2.6) White Blood Count 6.0th/mm3 (3.8-10.1) Red Blood Count 4.02mil/mm3 (4.40-5.80) Hemoglobin 10.9g/dL (13.8-17.2) Hematocrit 33.4% (41.0-50.0) Mean Corpuscular Volume 83.1fL (81-100) Mean Corpuscular Hemoglobin 27.1pg (27.0-35.0) Mean Corpuscular Hemoglobin Concent 32.6% (32.0-37.0) Red Cell Distribution Width 16.6% (12.3-15.4) Platelet Count 59bil/L (150-400) Sodium Level 137mEq/L (134-144) Potassium Level 4.8mEq/L (3.5-5.2) Chloride Level 102mEq/L (97-108) Carbon Dioxide Level 16mmol/L (18-29) Blood Urea Nitrogen 142mg/dL (8-27) Creatinine 3.95mg/dL (0.76-1.27) Estimat Glomerular Filtration Rate 16mL/min (>59) Glucose Level 126mg/dL (60-99) Calcium Level 8.2mg/dL (8.5-10.1) Total Bilirubin 0.7mg/dL (0.0-1.2) Aspartate Amino Transf (AST/SGOT) 83U/L (0-50) Alanine Aminotransferase (ALT/SGPT) 57U/L (0-44) Alkaline Phosphatase 121U/L (25-160) Total Protein 4.9g/dL (6.4-8.4) Albumin 2.3g/dL (3.4-5.0) Microbiology Results Blood cultures are negative. MRSA screen is negative. Urine for eosinophils is negative. Attending Statement The patient was seen and examined together with Dr. Thompson on 03/15/2017 and I agree with the history, exam and plan as outlined in the note above. . Kathleen Thompson DO Mar 16, 2017 12:39 Milad Tucker MD Mar 21, 2017 07:32 2.3g/dL (3.4-5.0) Microbiology Results Blood cultures are negative. MRSA screen is negative. Urine for eosinophils is negative. Kathleen Thompson DO Mar 16, 2017 12:39
== END 2017-03-15 18:10 | disposition expired | DRG 377 ==
LOC: SED 16:11 → CCU 18:37 → PCC 02-25 10:37 → MPC 03-03 21:04 → PCC 03-14 07:32
PROVIDERS: ADMIT Neuromusculoskeletal Medicine & OMM; ATTEND Neuromusculoskeletal Medicine & OMM
PROC: 30233N1 Transfusion of Nonautologous Red Blood Cells into Peripheral Vein, Percutaneous Approach (ICD-10-PCS; 2017-02-26)
PROC: 0CJS8ZZ Inspection of Larynx, Via Natural or Artificial Opening Endoscopic (ICD-10-PCS; principal; 2017-03-08)
PROC: 4A033R1 Measurement of Arterial Saturation, Peripheral, Percutaneous Approach (ICD-10-PCS; 2017-03-14)
PROC: 5A09457 Assistance with Respiratory Ventilation, 24-96 Consecutive Hours, Continuous Positive Airway Pressure (ICD-10-PCS; 2017-03-14)
DX: K92.2 Gastrointestinal hemorrhage, unspecified (principal); G93.40 Encephalopathy, unspecified; J96.90 Respiratory failure, unspecified, unspecified whether with hypoxia or hypercapnia; D62 Acute posthemorrhagic anemia; N17.9 Acute kidney failure, unspecified; E87.1 Hypo-osmolality and hyponatremia; G45.9 Transient cerebral ischemic attack, unspecified; I50.22 Chronic systolic (congestive) heart failure; I13.0 Hypertensive heart and chronic kidney disease with heart failure and stage 1 through stage 4 chronic kidney disease, or unspecified chronic kidney disease; L76.32 Postprocedural hematoma of skin and subcutaneous tissue following other procedure; E86.0 Dehydration; R13.10 Dysphagia, unspecified; T45.515A Adverse effect of anticoagulants, initial encounter; Z51.5 Encounter for palliative care; E11.9 Type 2 diabetes mellitus without complications; Z86.718 Personal history of other venous thrombosis and embolism; Z95.0 Presence of cardiac pacemaker; Z79.02 Long term (current) use of antithrombotics/antiplatelets; K21.9 Gastro-esophageal reflux disease without esophagitis; N18.3 Chronic kidney disease, stage 3 (moderate); Z66 Do not resuscitate